=== PATIENT | female | born 1955 | race Caucasian/White ===

== ENCOUNTER 2020-04-25 07:04 | Day surgery (SDC) | payer MEDICARE, MEDICAID, SELFPAY ==
--- NOTE | 2020-04-23 09:01 | P.CONAN_ITS ---
HPI - Anesthesia Eval Consult details Narrative: 65yo F for EGD and [place] [facility] [place] [facility] [place] for urosepsis 2/2 obstructive stone/pyelonephritis, renal stent placed, sepsis resolved, lactic acidosis resolved at time of D/C. [facility] Past Medical History Medical History Anemia Diabetes Hx of hepatitis C Hypertension Hyperthyroidism Parkinson disease Severe sepsis Surgical History Surgical History History of cystoscopy Meds Allergies Allergy/AdvReac Type Severity Reaction Status Date / Time aspirin [ASPIRIN] Allergy Unknown HIVES Unverified 04/10/20 19:49 Penicillins [PCN] Allergy Unknown HIVES Unverified 04/10/20 19:49 Penillins Allergy Unknown Uncoded 03/14/20 00:00 Home Medications Medication Instructions Recorded Confirmed Type acarbose mg PO 04/21/20 History atorvastatin PO 04/21/20 History carbidopa-levodopa tab PO 04/21/20 History furosemide PO 04/21/20 History gabapentin PO 04/21/20 History glipizide mg PO 04/21/20 History glipizide mg PO 04/21/20 History levothyroxine PO 04/21/20 History linagliptin-metformin [Jentadueto] tab PO 04/21/20 History lisinopril PO 04/21/20 History montelukast mg PO 04/21/20 History omeprazole PO 04/21/20 04/21/20 History Exam Exam Date and Time: April 23, 2020 0901
--- NOTE | 2020-04-24 11:54 | P.CONAN_ITS ---
Documented by User: Danette Bowser 04/24/20 12:01 HPI - Anesthesia Eval Consult details Narrative: 65yo F for EGD and Colonoscopy [facility] Past Medical History Medical History Anemia Cirrhosis Diabetes Hx of hepatitis C Hypertension Hyperthyroidism Parkinson disease Severe sepsis Surgical History Surgical History History of cystoscopy Social History Social History Advance Directives: Yes Advance Directives on File: Yes Advance Directives Date on File: 04/25/20 Meds Allergies Allergy/AdvReac Type Severity Reaction Status Date / Time aspirin [ASPIRIN] Allergy Unknown HIVES Verified 04/25/20 08:35 Penicillins [PCN] Allergy Unknown HIVES Verified 04/25/20 08:36 Penillins Allergy Unknown Hives Uncoded 04/25/20 08:35 Home Medications Medication Instructions Recorded Confirmed Type acarbose mg PO 04/21/20 History atorvastatin PO 04/21/20 History carbidopa-levodopa tab PO 04/21/20 History furosemide PO 04/21/20 History gabapentin PO 04/21/20 History glipizide mg PO 04/21/20 History glipizide mg PO 04/21/20 History levothyroxine PO 04/21/20 History linagliptin-metformin [Jentadueto] tab PO 04/21/20 History lisinopril PO 04/21/20 History montelukast mg PO 04/21/20 History omeprazole PO 04/21/20 04/21/20 History Exam Exam Date and Time: April 24, 2020 1154 Pertinent Lab Results Pertinent Lab Results: 04/04/20 Na 144, K 3.4, Cl 112 (H), CO2 24, BUN 8 (L), Creat 0.69 WBC 9.8, HGB 10.8, (L) HCT 31.6 (L), PLT 72 (L) EKG 04/02/20 ST@127 (during admission for urosepsis) ECHO 04/04/20: Nml LV sys func, EF 60-65%, impaired relax, AR (mild) CXR 04/02/20: No acute ds Assessment and Plan Assessment Anesthesia Assessment: Chart Reviewed Documented by User: Tyra Sarah 04/25/20 08:55 PMFSH Past Medical History Medical History Anemia Cirrhosis Diabetes Hx of hepatitis C Hypertension Hyperthyroidism Parkinson disease Severe sepsis Surgical History Surgical History History of cystoscopy Social History Social History Advance Directives: Yes Advance Directives on File: Yes Advance Directives Date on File: 04/25/20 Meds Allergies Allergy/AdvReac Type Severity Reaction Status Date / Time aspirin [ASPIRIN] Allergy Unknown HIVES Verified 04/25/20 08:35 Penicillins [PCN] Allergy Unknown HIVES Verified 04/25/20 08:36 Penillins Allergy Unknown Hives Uncoded 04/25/20 08:35 Home Medications Medication Instructions Recorded Confirmed Type acarbose mg PO 04/21/20 History atorvastatin PO 04/21/20 History carbidopa-levodopa tab PO 04/21/20 History furosemide PO 04/21/20 History gabapentin PO 04/21/20 History glipizide mg PO 04/21/20 History glipizide mg PO 04/21/20 History levothyroxine PO 04/21/20 History linagliptin-metformin [Jentadueto] tab PO 04/21/20 History lisinopril PO 04/21/20 History montelukast mg PO 04/21/20 History omeprazole PO 04/21/20 04/21/20 History
[2020-04-25 08:03] LABS: Glucose, Whole Blood 185 mg/dL (60-115)
[2020-04-25 08:11] VITALS: BMI 39.7
[2020-04-25 08:26] VITALS: PULSE 96; RESP 16; TEMP 36.7; O2SAT 97
[2020-04-25] MEDS: Lactated Ringers 1,000 ML 50 ML IVCONT (08:42)
--- NOTE | 2020-04-25 09:14 | MHC.SHP ---
Surgical H&P Section A The patient is an INPATIENT: No Changes since office visit: No Cold of Flu in the past 2 weeks, No New Medical Problems and No Changes in Medication The History & Physical has been completed within 30 days and I have reviewed it.: No Section B Chief Complaint: CHIRRHOSIS,SCREENING Details of Present Illness: Colon cancer screening Cirrhosis - screen for varices Relevant Family History (Specify if Yes): No Relevant Social History: None Present Medications: see Short Stay Collaborative assessment Medical History: Significant History ( hypertension, diabetes mellitus, hypothyroidism, asthma, Parkinson's disease) History of Previous Operations: Relevant previous surgery/procedure and date(s) ( gallbladder surgery, bilateral tubal ligation.) Allergies: Allergies Allergy/AdvReac Type Severity Reaction Status Date / Time aspirin [ASPIRIN] Allergy Unknown HIVES Verified 04/25/20 08:35 Penicillins [PCN] Allergy Unknown HIVES Verified 04/25/20 08:36 Penillins Allergy Unknown Hives Uncoded 04/25/20 08:35 Review of Systems Sugical H&P ROS: Negative: Constitution, Cardiovascular, Respiratory and Gastrointestinal Exam Surgical H&P Exam: Normal: HEENT, Normal: Heart, Normal: Lungs, Normal: Extremities and Normal: Abdomen Plan Diagnosis/Plan: Unchanged Patient has been examined and remains a candidate for the planned procedure
--- NOTE | 2020-04-25 10:14 | HO.ANESPROP2 ---
[facility] Past Medical History Medical History Anemia Cirrhosis Diabetes Hx of hepatitis C Hypertension Hyperthyroidism Parkinson disease Severe sepsis Surgical History Surgical History History of cystoscopy Social History Social History Advance Directives: Yes Advance Directives on File: Yes Advance Directives Date on File: 04/25/20 Meds Allergies Allergy/AdvReac Type Severity Reaction Status Date / Time aspirin [ASPIRIN] Allergy Unknown HIVES Verified 04/25/20 08:35 Penicillins [PCN] Allergy Unknown HIVES Verified 04/25/20 08:36 Penillins Allergy Unknown Hives Uncoded 04/25/20 08:35 Home Medications Medication Instructions Recorded Confirmed Type acarbose mg PO 04/21/20 History atorvastatin PO 04/21/20 History carbidopa-levodopa tab PO 04/21/20 History furosemide PO 04/21/20 History gabapentin PO 04/21/20 History glipizide mg PO 04/21/20 History glipizide mg PO 04/21/20 History levothyroxine PO 04/21/20 History linagliptin-metformin [Jentadueto] tab PO 04/21/20 History lisinopril PO 04/21/20 History montelukast mg PO 04/21/20 History omeprazole PO 04/21/20 04/21/20 History Exam Exam Date and Time: April 25, 2020 1014 Height,Weight and Vital Signs: Height 4 ft 11 in Weight 89.358 kg Last Vital Signs Temp 98.1 F 04/25/20 08:26 Pulse 96 04/25/20 08:26 Resp 16 04/25/20 08:26 Pulse Ox 97 04/25/20 08:26 Pertinent Lab Results Pertinent Lab Results: Laboratory Tests 04/25/20 07:59 POC Glucose 185 H Assessment and Plan Assessment Anesthesia Assessment: Anesthesia Plan Discussed and Consent Obtained Final Anesthetic Review NPO: Yes Final Preanesthetic Review: No Changes in Pt Med Stat, Meds & Allergies Reviewed, Consent Obtained/Reviewed and Med/Surg/Anes Hx Reviewed Patient Risk: Intermediate Procedure Risk: Low Assessment/Block/Sedation in SS: Assess/Block/Sedation-SS Anesthetic Plan Anesthetic Plan: MAC: Disposition: Standard PACU
--- NOTE | 2020-04-25 10:18 | HO.ANESPROP2 ---
[facility] Past Medical History Medical History Anemia Cirrhosis Diabetes Hx of hepatitis C Hypertension Hyperthyroidism Parkinson disease Severe sepsis Surgical History Surgical History History of cystoscopy Social History Social History Advance Directives: Yes Advance Directives on File: Yes Advance Directives Date on File: 04/25/20 Meds Allergies Allergy/AdvReac Type Severity Reaction Status Date / Time aspirin [ASPIRIN] Allergy Unknown HIVES Verified 04/25/20 08:35 Penicillins [PCN] Allergy Unknown HIVES Verified 04/25/20 08:36 Penillins Allergy Unknown Hives Uncoded 04/25/20 08:35 Home Medications Medication Instructions Recorded Confirmed Type acarbose mg PO 04/21/20 History atorvastatin PO 04/21/20 History carbidopa-levodopa tab PO 04/21/20 History furosemide PO 04/21/20 History gabapentin PO 04/21/20 History glipizide mg PO 04/21/20 History glipizide mg PO 04/21/20 History levothyroxine PO 04/21/20 History linagliptin-metformin [Jentadueto] tab PO 04/21/20 History lisinopril PO 04/21/20 History montelukast mg PO 04/21/20 History omeprazole PO 04/21/20 04/21/20 History Exam Exam Date and Time: April 25, 2020 1018 Height,Weight and Vital Signs: Height 4 ft 11 in Weight 89.358 kg Last Vital Signs Temp 98.1 F 04/25/20 08:26 Pulse 96 04/25/20 08:26 Resp 16 04/25/20 08:26 Pulse Ox 97 04/25/20 08:26 Pertinent Lab Results Pertinent Lab Results: Laboratory Tests 04/25/20 07:59 POC Glucose 185 H Assessment and Plan Assessment Anesthesia Assessment: Anesthesia Plan Discussed and Consent Obtained Final Anesthetic Review NPO: Yes ASA Class: II Final Preanesthetic Review: No Changes in Pt Med Stat, Meds & Allergies Reviewed, Consent Obtained/Reviewed and Med/Surg/Anes Hx Reviewed Patient Risk: Intermediate Procedure Risk: Low Anesthetic Plan Anesthetic Plan: MAC: Disposition: Standard PACU
--- NOTE | 2020-04-25 10:39 | P.BOP_ITS ---
Brief Operative Note Date of procedure: 04/25/20 Pre-op diagnosis: colon cancer screening, cirrhosis - screen for varices Post-op diagnosis: other (hiatal hernia, portal hypertensive gastropathy, colon polyps, diverticulosis, hemorrhoids) Procedure: FLEXIBLE TRANSORAL UPPER GASTROINTESTINAL ENDOSCOPY AND COLONOSCOPY PROCEDURE NOTE UPPER ENDOSCOPY Consent: Indications for the procedure and potential complications of bleeding, perforation, reaction to medications and missed diagnosis were discussed with the patient with the help of a dicer machine operator and informed consent was obtained. Instrument: Olympus GIF H 190 mid size upper endoscope Monitoring: Vital signs and clinical assessment, continuous EKG monitoring, Pulse oximetry, Carbon Dioxide monitoring and blood pressure monitoring were done throughout the procedure. Procedure: The patient was placed in the left lateral decubitis position and pre-procedure medications were administered and a bite block was placed. The endoscope was inserted into the mouth and advanced under direct vision to the third part of duodenum. A careful inspection was made as the upper endoscope was withdrawn including a retroflexed examination of the proximal stomach; Findings and interventions are described below. Findings: Larynx: Normal Esophagus: GE junction at 37 cms, small hiatal hernia 37-40 cms. No esophageal varices noted in the distal esophagus. No esophagitis or Estrada s. Stomach: Moderate non-erosive portal gastropathy throughout the stomach. Grade 2 flap valve and no gastric varices noted on retroflexed examination of the cardia. Duodenum: Normal bulb and descending duodenum Intervention: None Colonoscopy Instrument: Olympus PCF H 190 L variable stiffness pediatric colonoscope Monitoring: Vital signs and clinical assessment, continuous EKG monitoring, Pulse oximetry, Carbon Dioxide monitoring and blood pressure monitoring were done throughout the procedure. Colon withdrawl time was 30 minutes. Procedure: The patient was placed in the left lateral decubitis position and pre-procedure medications were administered. After a digital rectal examination of the ano-rectum, the video colonoscope was inserted into the rectum and advanced through the colon to the cecum. The colonoscope was slowly withdrawn in a retrograde panoramic fashion and the colon mucosa was carefully examined including a retroflexed view of the rectum. Findings and interventions are described below. Procedure Difficulty: Without difficulty Findings: Terminal Ileum Not evaluated Cecum: Normal. Ascending Colon: A 4-5 mm sessile polyp removed with the cold biopsy. Transverse Colon: A 10 mm sessile polyp in the proximal transverse colon removed with a hot snare. A 20 mm sessile polyp in the proximal transverse colon removed with a hot snare. Descending Colon: Normal Sigmoid Colon: Multiple 4-5 mm diminutive polyps - one removed with a cold biopsy. A 10-12 mm sessile polyp removed with a hot snare and moderate diverticulosis. Rectum Normal Anorectum - Moderate internal hemorrhoids. Colon preparation: Good after some irrigation. Impression and Post Procedure Diagnosis: Endoscopy Findings: ESOPHAGUS: small hiatal hernia and no esophageal varices noted. STOMACH: moderate non-erosive hypertensive portal gastropathy. Colonoscopy Findings: 5 polyps were removed - 3 polyps were larger than 10 mm. Moderate diverticulosis seen in the sigmoid colon Moderate hemorrhoids on retroflexed exam. Plan: Await pathology results Hold NSAIDs or aspirin for 7 days. Patient to schedule a FU appointment in the GI Clinic with Sourav Braun M.D. Repeat EGD (screen for varices) and Colonoscopy in 2 years if polyps are adenomatous. Above findings were reviewed with the patient and handout on colon polyps and diverticulosis was provided. Anesthesia: MAC ( Dr Gallardo) Surgeon: Sourav Braun Pathology: other (A. ascending colon polyp, B. transverse colon polyps. C. sigmoid colon polyps) Condition: stable Disposition: PACU
[2020-04-25 10:43] VITALS: BP 95/44; PULSE 85; RESP 16; TEMP 36.1; O2SAT 99
--- NOTE | 2020-04-25 10:44 | HO.ANESPROP2 ---
[facility] Past Medical History Medical History (Updated 04/25/20 @ 10:45 by Tyra Sarah) Anemia Cirrhosis Diabetes Hx of hepatitis C Hypertension Hyperthyroidism Parkinson disease Severe sepsis Surgical History Surgical History History of cystoscopy Social History Social History Advance Directives: Yes Advance Directives on File: Yes Advance Directives Date on File: 04/25/20 Meds Allergies Allergy/AdvReac Type Severity Reaction Status Date / Time aspirin [ASPIRIN] Allergy Unknown HIVES Verified 04/25/20 08:35 Penicillins [PCN] Allergy Unknown HIVES Verified 04/25/20 08:36 Penillins Allergy Unknown Hives Uncoded 04/25/20 08:35 Home Medications Medication Instructions Recorded Confirmed Type acarbose mg PO 04/21/20 History atorvastatin PO 04/21/20 History carbidopa-levodopa tab PO 04/21/20 History furosemide PO 04/21/20 History gabapentin PO 04/21/20 History glipizide mg PO 04/21/20 History glipizide mg PO 04/21/20 History levothyroxine PO 04/21/20 History linagliptin-metformin [Jentadueto] tab PO 04/21/20 History lisinopril PO 04/21/20 History montelukast mg PO 04/21/20 History omeprazole PO 04/21/20 04/21/20 History Exam Exam Date and Time: April 25, 2020 1044 Height,Weight and Vital Signs: Height 4 ft 11 in Weight 89.358 kg Last Vital Signs Temp 98.1 F 04/25/20 08:26 Pulse 96 04/25/20 08:26 Resp 16 04/25/20 08:26 Pulse Ox 97 04/25/20 08:26 Pertinent Lab Results Pertinent Lab Results: Laboratory Tests 04/25/20 07:59 POC Glucose 185 H
[2020-04-25 10:58] VITALS: BP 100/64; PULSE 86; RESP 20; TEMP 36.1; O2SAT 99
--- NOTE | 2020-04-25 11:20 | HO.POSTANES ---
Post Anesthesia Evaluation Post Anesthesia Evaluation Vital Signs: Vital Signs Temp Pulse Resp BP Pulse Ox 04/25/20 10:58 97.0 F 86 20 100/64 99 04/25/20 10:43 97.0 F 85 16 95/44 L 99 04/25/20 08:26 98.1 F 96 16 97 Anesthesia: Monitored Mental Status: Awake Pain Control: Satisfactory Nausea/Vomiting: None Hydration: Adequate Anesthesia-Related Issues: No Anes. Related Issues
--- NOTE | 2020-04-25 12:00 | HO.ANESPROP2 ---
[facility] Past Medical History Medical History Anemia Cirrhosis Diabetes Hx of hepatitis C Hypertension Hyperthyroidism Parkinson disease Severe sepsis Surgical History Surgical History History of cystoscopy Social History Social History Advance Directives: Yes Advance Directives on File: Yes Advance Directives Date on File: 04/25/20 Meds Allergies Allergy/AdvReac Type Severity Reaction Status Date / Time aspirin [ASPIRIN] Allergy Unknown HIVES Verified 04/25/20 08:35 Penicillins [PCN] Allergy Unknown HIVES Verified 04/25/20 08:36 Penillins Allergy Unknown Hives Uncoded 04/25/20 08:35 Home Medications Medication Instructions Recorded Confirmed Type Jentadueto tab PO 04/21/20 History acarbose mg PO 04/21/20 History atorvastatin PO 04/21/20 History carbidopa-levodopa tab PO 04/21/20 History furosemide PO 04/21/20 History gabapentin PO 04/21/20 History glipizide mg PO 04/21/20 History glipizide mg PO 04/21/20 History levothyroxine PO 04/21/20 History lisinopril PO 04/21/20 History montelukast mg PO 04/21/20 History omeprazole PO 04/21/20 04/21/20 History Exam Exam Date and Time: April 25, 2020 1200 Height,Weight and Vital Signs: Height 4 ft 11 in Weight 89.358 kg Last Vital Signs Temp 97.0 F 04/25/20 10:58 Pulse 86 04/25/20 10:58 Resp 20 04/25/20 10:58 BP 100/64 04/25/20 10:58 Pulse Ox 99 04/25/20 10:58 Pertinent Lab Results Pertinent Lab Results: Laboratory Tests 04/25/20 07:59 POC Glucose 185 H
== END 2020-04-25 11:58 | disposition home or self-care (01) ==
PROVIDERS: Visit Provider Internal Medicine Gastroenterology
PROC: (CPT 45380; principal; 2020-04-25 08:30)
DX: Z12.11 Encounter for screening for malignant neoplasm of colon (principal); D12.5 Benign neoplasm of sigmoid colon; K57.30 Diverticulosis of large intestine without perforation or abscess without bleeding; K64.8 Other hemorrhoids; K74.60 Unspecified cirrhosis of liver; K76.6 Portal hypertension; K31.89 Other diseases of stomach and duodenum; K44.9 Diaphragmatic hernia without obstruction or gangrene; I10 Essential (primary) hypertension; E11.9 Type 2 diabetes mellitus without complications; J45.909 Unspecified asthma, uncomplicated; G20 Parkinson's disease; Z90.49 Acquired absence of other specified parts of digestive tract; Z79.84 Long term (current) use of oral hypoglycemic drugs; Z79.899 Other long term (current) drug therapy; Z88.1 Allergy status to other antibiotic agents; Z88.8 Allergy status to other drugs, medicaments and biological substances
CPT/HCPCS: 45380; 43235; 82947; 88305

== ENCOUNTER 2020-05-14 07:18 | Day surgery (SDC) | payer MEDICARE, MEDICAID, SELFPAY ==
--- NOTE | 2020-05-13 14:25 | HO.ANESPROP2 ---
Documented by User: Danette Bowser 05/13/20 14:30 HPI - Anesthesia Eval Consult details Narrative: 65yo F for ESWL PMFSH Past Medical History Medical History (Updated 05/13/20 @ 15:52 by Ruperto Parkinson MD) Anemia Cirrhosis Diabetes Hx of hepatitis C Hypertension Hyperthyroidism Parkinson disease Severe sepsis Surgical History Surgical History History of cystoscopy Social History Social History Smoking Status: Never smoker Use of substances other than those prescribed or required for medical reasons: No Advance Directives: Yes Advance Directives on File: Yes Advance Directives Date on File: 04/25/20 Meds Allergies Allergy/AdvReac Type Severity Reaction Status Date / Time aspirin [ASPIRIN] Allergy Unknown HIVES Verified 04/25/20 08:35 Penicillins [PCN] Allergy Unknown HIVES Verified 04/25/20 08:36 Penillins Allergy Unknown Hives Uncoded 04/25/20 08:35 Home Medications Medication Instructions Recorded Confirmed Type Jentadueto tab PO 04/21/20 History acarbose mg PO 04/21/20 History atorvastatin PO 04/21/20 History carbidopa-levodopa tab PO 04/21/20 History furosemide PO 04/21/20 History gabapentin PO 04/21/20 History glipizide mg PO 04/21/20 History glipizide mg PO 04/21/20 History levothyroxine PO 04/21/20 History lisinopril PO 04/21/20 History montelukast mg PO 04/21/20 History omeprazole PO 04/21/20 04/21/20 History Exam Exam Date and Time: May 13, 2020 1425 Pertinent Lab Results Pertinent Lab Results: Laboratory Tests 04/04/20 04/04/20 06:25 06:25 WBC 9.8 Hgb 10.8 L Hct 31.6 L Plt Count 72 L Sodium 144 Potassium 3.4 Chloride 112 H BUN 8 L Creatinine 0.69 Narrative Narrative: EKG 04/02/20 ST@127 (during admission for urosepsis) ECHO 04/04/20: Nml LV sys func, EF 60-65%, impaired relax, AR (mild) CXR 04/02/20: No acute ds Assessment and Plan Assessment Anesthesia Assessment: Chart Reviewed Documented by User: Nathan Church 05/14/20 10:19 PMFSH Past Medical History Medical History (Updated 05/13/20 @ 15:52 by Ruperto Parkinson MD) Anemia Cirrhosis Diabetes Hx of hepatitis C Hypertension Hyperthyroidism Parkinson disease Severe sepsis Surgical History Surgical History History of cystoscopy Social History Social History Smoking Status: Never smoker Use of substances other than those prescribed or required for medical reasons: No Advance Directives: Yes Advance Directives on File: Yes Advance Directives Date on File: 04/25/20 Meds Allergies Allergy/AdvReac Type Severity Reaction Status Date / Time aspirin [ASPIRIN] Allergy Unknown HIVES Verified 04/25/20 08:35 Penicillins [PCN] Allergy Unknown HIVES Verified 04/25/20 08:36 Penillins Allergy Unknown Hives Uncoded 04/25/20 08:35 Home Medications Medication Instructions Recorded Confirmed Type Jentadueto tab PO 04/21/20 History acarbose mg PO 04/21/20 History atorvastatin PO 04/21/20 History carbidopa-levodopa tab PO 04/21/20 History furosemide PO 04/21/20 History gabapentin PO 04/21/20 History glipizide mg PO 04/21/20 History glipizide mg PO 04/21/20 History levothyroxine PO 04/21/20 History lisinopril PO 04/21/20 History montelukast mg PO 04/21/20 History omeprazole PO 04/21/20 04/21/20 History Exam Airway Mallampati Class: II TM Dist: >3cm Neck ROM: Full Loose/Missing/Broken Teeth: Yes Heart: RRR Assessment and Plan Assessment Anesthesia Assessment: Anesthesia Plan Discussed Final Anesthetic Review NPO: Yes ASA Class: III Final Preanesthetic Review: Consent Obtained/Reviewed Anesthetic Plan Anesthetic Plan: MAC:
--- NOTE | 2020-05-14 07:26 | XR_ITS ---
EXAMINATION: XR ABDOMEN KUB CLINICAL INDICATION: EFW well COMPARISON: CT scan of April 03, 2020 TECHNIQUE: AP view of the abdomen. FINDINGS: A right ureteral stent is seen in place. There is again noted to be calcification within the mid right ureter measuring approximately 3 x 1.3 cm in size. There is also seen to be a 3 mm calculus overlying the medial aspect of the right upper collecting system. No definite calculi are seen within the distal right ureter. No dilated loops of large or small bowel are evident. There is mild scoliosis of the lumbar spine convex right. There is degenerative disc disease with facet arthropathy L5-S1. IMPRESSION: Right ureteral stent in place with large mid right ureteral calculus.
[2020-05-14 08:47] VITALS: BMI 39.7
[2020-05-14 09:05] VITALS: BP 114/40; PULSE 92; RESP 18; TEMP 36.4; O2SAT 99
[2020-05-14 09:17] LABS: Glucose, Whole Blood 113 mg/dL (60-115)
[2020-05-14] MEDS: Lactated Ringers 1,000 ML 50 ML IVCONT (09:23)
[2020-05-14] MEDS: levoFLOXacin 500 MG TABLET PO (09:55)
--- NOTE | 2020-05-14 10:46 | MHC.SHP ---
Pre-Procedural Eval Section B Chief Complaint: RIGHT RENAL STONE Details of Present Illness: Right upper ureteric stone with stent in place Relevant Family History (Specify if Yes): No Relevant Social History: None Present Medications: see Short Stay Collaborative assessment Medical History: No relevant PMH History of Previous Operations: Relevant previous surgery/procedure and date(s) Allergies: Allergies Allergy/AdvReac Type Severity Reaction Status Date / Time aspirin [ASPIRIN] Allergy Unknown HIVES Verified 04/25/20 08:35 Penicillins [PCN] Allergy Unknown HIVES Verified 04/25/20 08:36 Penillins Allergy Unknown Hives Uncoded 04/25/20 08:35 Review of Systems Sugical H&P ROS: Negative: Constitution, Cardiovascular, Respiratory, Neurological, Psychiatric, Hem-Onc, Allergic/Immunologic, Gastrointestinal, Genitourinary, Musculoskeletal, Integumentary, Endocrine and Eyes/Ears/Nose/Throat Exam Surgical H&P Exam: Normal: HEENT, Normal: Heart, Normal: Lungs, Normal: Extremities, Normal: Abdomen, Normal: Skin and Normal: Neurological Plan Diagnosis/Plan: Unchanged Patient has been examined and remains a candidate for the planned procedure
--- NOTE | 2020-05-14 11:41 | PM.OP ---
Brief Operative Note Date of procedure: 05/14/20 Pre-op diagnosis: right ureteric stone with stent Post-op diagnosis: same Procedure: right ureteric ESWL stent left in place since residual on end procedure imaging Surgeon: Ruperto Parkinson MD Anesthesia: MAC Estimated blood loss (mL): 0 Pathology: none sent Condition: stable Disposition: same day
--- NOTE | 2020-05-14 11:42 | W.PM.OPN ---
Operative Note Operative Note Narrative: PreOperative Diagnosis: right ureter stone Post Operative Diagnosis: right ureter stone Procedure: right ureter ESWL Surgeron: Dr Ruperto Parkinson Anesthesia: mac/sedation Indications for procedure: They understand ESWL may be a staged procedure and subsequent intervention may be required based on imaging after ESWL. They also understand there is a risk of bleeding, infection, damage to adjacent organs. Procedure: After informed consent was verified patient was brought to the operating room placed in supine position. Anesthesia was performed per protocol. Safety pause time-out was performed. Antibiotics have been given. ESWL was performed. The 1st 500 shocks to increase power.. A total of 3000 shocks were given. Fluoroscopy showed mild stone disintegration. Not enough to take out stent They tolerated procedure well and was transferred to the recovery area upon completion.
[2020-05-14 11:43] VITALS: BP 114/59; PULSE 103; RESP 18; TEMP 36.8; O2SAT 100
[2020-05-14 11:57] VITALS: BP 122/75; PULSE 91; RESP 16; O2SAT 100
[2020-05-14 12:11] VITALS: BP 122/59; PULSE 89; RESP 17; TEMP 36.6; O2SAT 100
--- NOTE | 2020-05-14 12:46 | HO.POSTANES ---
Post Anesthesia Evaluation Post Anesthesia Evaluation Vital Signs: Vital Signs Temp Pulse Resp BP Pulse Ox 05/14/20 12:11 97.8 F 89 17 122/59 L 100 05/14/20 11:57 91 16 122/75 100 05/14/20 11:43 98.2 F 103 H 18 114/59 L 100 05/14/20 09:05 97.6 F 92 18 114/40 L 99 Anesthesia: Monitored Mental Status: Awake Pain Control: Satisfactory Nausea/Vomiting: None Hydration: Adequate Anesthesia-Related Issues: No Anes. Related Issues
== END 2020-05-14 13:00 | disposition home or self-care (01) ==
PROVIDERS: Visit Provider Urology
PROC: (CPT 50590; principal; 2020-05-14 09:50)
DX: N20.1 Calculus of ureter (principal); Z96.0 Presence of urogenital implants; E11.9 Type 2 diabetes mellitus without complications; I10 Essential (primary) hypertension; G20 Parkinson's disease; Z86.19 Personal history of other infectious and parasitic diseases; Z79.84 Long term (current) use of oral hypoglycemic drugs; Z79.899 Other long term (current) drug therapy; Z88.0 Allergy status to penicillin; Z88.8 Allergy status to other drugs, medicaments and biological substances
CPT/HCPCS: 50590; 74018; 82947; J2250; J3010

== ENCOUNTER → 2020-07-01 14:48 | Outpatient (BNVA) | payer MEDICARE, MEDICAID, SELFPAY | PROVIDERS: PCP Internal Medicine; Visit Provider Urology | DX: N20.1 Calculus of ureter (principal) | CPT/HCPCS: 99212 ==

== ENCOUNTER 2020-07-14 07:21 | Day surgery (SDC) | payer MEDICARE, MEDICAID, SELFPAY ==
[2020-07-08 10:26] VITALS: BMI 39.2
--- NOTE | 2020-07-11 12:11 | HO.ANESPROP2 ---
Documented by User: Danette Bowser 07/11/20 12:18 HPI - Anesthesia Eval Consult details Narrative: 65yo F for Cystoscopy, Ureteroroscopy, Retro, Laser, Stent Replacement 03/2020 R stent placement with MAC 04/2020 ESWL with MAC PMFSH Past Medical History Medical History Anemia Cirrhosis Diabetes Hx of hepatitis C Hypertension Hyperthyroidism Parkinson disease Severe sepsis Surgical History Surgical History H/O colonoscopy History of cystoscopy Hx of lithotripsy Social History Social History Smoking Status: Never smoker Second Hand Smoke Exposure: No Use of substances other than those prescribed or required for medical reasons: No Advance Directives: Yes Advance Directives Information Provided: No Advance Directives on File: Yes Advance Directives Date on File: 04/25/20 Meds Allergies Allergy/AdvReac Type Severity Reaction Status Date / Time aspirin [ASPIRIN] Allergy Intermediate HIVES Verified 07/07/20 13:55 Penicillins [PCN] Allergy Intermediate HIVES Verified 07/07/20 13:55 Home Medications Medication Instructions Recorded Confirmed Type Jentadueto tab PO 04/21/20 History acarbose 25 mg PO TIDWMEAL 04/21/20 07/08/20 History atorvastatin 20 mg PO BEDTIME 04/21/20 07/08/20 History carbidopa-levodopa 1 tab PO TID 04/21/20 07/08/20 History furosemide 20 mg PO DAILY 04/21/20 07/08/20 History gabapentin 300 mg PO TID 04/21/20 07/08/20 History glipizide 10 mg PO BIDAC 04/21/20 07/08/20 History levothyroxine 75 mcg PO DAILY 04/21/20 07/08/20 History lisinopril 2.5 mg PO DAILY 04/21/20 07/08/20 History montelukast 10 mg PO BEDTIME 04/21/20 07/08/20 History omeprazole 20 mg PO DAILY 04/21/20 07/08/20 History Exam Exam Date and Time: July 11, 2020 1211 Height,Weight and Vital Signs: Height 4 ft 11 in Weight 87.997 kg Pertinent Lab Results Pertinent Lab Results: Laboratory Tests 04/04/20 04/04/20 06:25 06:25 WBC 9.8 Hgb 10.8 L Hct 31.6 L Plt Count 72 L Sodium 144 Potassium 3.4 Chloride 112 H BUN 8 L Creatinine 0.69 Narrative Narrative: EKG 03/2020 (septic) ST@127, Nonspecific ST abn ECHO 03/2020: Nml LV sys function with impaired filling pattern, EF 60-65%, Mild AR, Nml RV sys pressure, No pericardial effusion Assessment and Plan Assessment Anesthesia Assessment: Chart Reviewed Documented by User: Waqas Ortega 07/14/20 08:40 PMFSH Past Medical History Medical History Anemia Cirrhosis Diabetes Hx of hepatitis C Hypertension Hyperthyroidism Parkinson disease Severe sepsis Surgical History Surgical History H/O colonoscopy History of cystoscopy Hx of lithotripsy Social History Social History Smoking Status: Never smoker Second Hand Smoke Exposure: No Use of substances other than those prescribed or required for medical reasons: No Advance Directives: Yes Advance Directives Information Provided: No Advance Directives on File: Yes Advance Directives Date on File: 04/25/20 Meds Allergies Allergy/AdvReac Type Severity Reaction Status Date / Time aspirin [ASPIRIN] Allergy Intermediate HIVES Verified 07/07/20 13:55 Penicillins [PCN] Allergy Intermediate HIVES Verified 07/07/20 13:55 Home Medications Medication Instructions Recorded Confirmed Type Jentadueto tab PO 04/21/20 History acarbose 25 mg PO TIDWMEAL 04/21/20 07/08/20 History atorvastatin 20 mg PO BEDTIME 04/21/20 07/08/20 History carbidopa-levodopa 1 tab PO TID 04/21/20 07/08/20 History furosemide 20 mg PO DAILY 04/21/20 07/08/20 History gabapentin 300 mg PO TID 04/21/20 07/08/20 History glipizide 10 mg PO BIDAC 04/21/20 07/08/20 History levothyroxine 75 mcg PO DAILY 04/21/20 07/08/20 History lisinopril 2.5 mg PO DAILY 04/21/20 07/08/20 History montelukast 10 mg PO BEDTIME 04/21/20 07/08/20 History omeprazole 20 mg PO DAILY 04/21/20 07/08/20 History Exam Airway Mallampati Class: III TM Dist: >3cm Neck ROM: Full Denture: Lower
[2020-07-14 07:39] VITALS: BP 126/63; PULSE 95; RESP 16; TEMP 36.4; O2SAT 100
[2020-07-14 07:41] VITALS: BMI 39.2
[2020-07-14 07:46] LABS: Glucose, Whole Blood 132 mg/dL (60-115)
[2020-07-14] MEDS: Lactated Ringers 1,000 ML 100 ML IVCONT (07:56)
--- NOTE | 2020-07-14 10:14 | FL_ITS ---
EXAMINATION: XR FLUOROSCOPY WITH IMAGES CLINICAL INFORMATION: Right-sided stone. COMPARISON: Previous CT of the abdomen and pelvis March 2020 TECHNIQUE: Fluoroscopy performed by Dr. Ruperto Parkinson. Fluoroscopy time: 32 seconds Cumulative dose: 16 mGy Images: 3 FINDINGS: Initial image demonstrates a ureteroscope in the right distal ureter. Second image demonstrates contrast in a dilated right renal collecting system and ureter. There is denser lesion in the right mid to distal ureter questionable for stone seen on March 2020 CT scan. Final image demonstrates ureteroscope catheter in the more proximal right ureter. There is severe right hydronephrosis and ureteral dilatation. FL/FL guidance in OR IMPRESSION: Fluoroscopic guidance provided to Dr. Parkinson for right retrograde exam.
--- NOTE | 2020-07-14 10:20 | MHC.SHP ---
Pre-Procedural Eval Section A The patient is an INPATIENT: No Changes since office visit: No Cold of Flu in the past 2 weeks, No New Medical Problems, No Changes in Medication and No Patient answered all questions The History & Physical has been completed within 30 days and I have reviewed it.: Yes Section B Chief Complaint: Calculus of Ureter Allergies: Allergies Allergy/AdvReac Type Severity Reaction Status Date / Time aspirin [ASPIRIN] Allergy Intermediate HIVES Verified 07/07/20 13:55 Penicillins [PCN] Allergy Intermediate HIVES Verified 07/07/20 13:55 Plan I have reviewed the history and physical and performed a pertinent physical examination on my patient. No changes have occurred unless specified.
--- NOTE | 2020-07-14 10:23 | P.HPSUR_ITS ---
Pre-Procedural Eval Section B Chief Complaint: Calculus of Ureter Details of Present Illness: Right distal ureteric calculus with stent - planned procedure right stent removal, retrograde, ureteroscopy, laser lithotripsy Relevant Family History (Specify if Yes): No Relevant Social History: None Present Medications: see Short Stay Collaborative assessment Medical History: Significant History History of Previous Operations: Relevant previous surgery/procedure and date(s) Allergies: Allergies Allergy/AdvReac Type Severity Reaction Status Date / Time aspirin [ASPIRIN] Allergy Intermediate HIVES Verified 07/07/20 13:55 Penicillins [PCN] Allergy Intermediate HIVES Verified 07/07/20 13:55 Review of Systems Sugical H&P ROS: Negative: Constitution, Cardiovascular, Respiratory, Neurological, Psychiatric, Hem-Onc, Allergic/Immunologic, Gastrointestinal, Ge nitourinary, Musculoskeletal, Integumentary, Endocrine and Eyes/Ears/Nose/Throat Exam Surgical H&P Exam: Normal: HEENT, Normal: Heart, Normal: Lungs, Normal: Extremities, Normal: Abdomen, Normal: Skin and Normal: Neurological Plan Diagnosis/Plan: Unchanged I have reviewed the history and physical and performed a pertinent physical examination on my patient. No changes have occurred unless specified. - right stent removal, ureteroscopy, retrograde, laser lithotripsy
[2020-07-14] MEDS: levoFLOXacin 500 MG TABLET PO (10:27)
--- NOTE | 2020-07-14 11:07 | PM.OP ---
Brief Operative Note Date of Service: 07/14/20 Pre-op diagnosis: Right ureteric stone Post-op diagnosis: same Procedure: Cystoscopy with ureteroscopy and removal of right stent Ureteroscopy with basketing of stone fragments Retrograde examination Implants: None Surgeon: Ruperto Parkinson MD Anesthesia: GLMA Estimated blood loss (mL): 0 Pathology: other (Stone and inflammatory tissue) Condition: stable Disposition: same day
--- NOTE | 2020-07-14 11:12 | W.PM.OPN ---
Operative Note Operative Note Date of Service: 07/14/20 Narrative: PreOperative Diagnosis: Right-sided stone ureter with stent Post Operative Diagnosis: Right-sided stent with mid ureter stone Procedure: - cystoscopy - ureteroscopy with stent removal - ureteroscopy with basketing of stone, basketing of inflammatory tissue Surgeon: Dr Ruperto Parkinson Anesthesia: General Indications for procedure: This is a 65-year-old female. Presented with a mid ureteric stone. At that time stent been placed. As well had been done. On follow-up imaging showed stone still present around stent recommendation had been for removal of stent under anesthesia with ureteroscopy for stone fragments. Procedure: After informed consent was verified patient was brought to the operating placed in supine position. Anesthesia was administered per protocol. Patient was placed in modified dorsal lithotomy position and prepped and draped in a sterile fashion. Safety pause time-out and side of surgery confirmed. Antibiotics confirmed. Twenty-two [place] cystoscope was placed. She has a prolapse of her bladder incomplete bladder emptying. Urine was clearly concentrated time removal. The bladder was examined. No stent was seen. On x-ray it appeared the stent had migrated proximally and the distal tip was just inside the ureter. Semi rigid ureteroscopy was performed. The stent was encountered within 1 in of the ureteric opening. Using a Zero tip basket we were able to manipulate the end of the stent and grasped this and removed the stent. Repeat ureteroscopy encountered 2 stone fragments each of these were basketed and removed. Repeat retrograde was performed which did show some degree of narrowing of the ureter at between the proximal and middle 3rd. Ureteroscopy this area showed some inflammatory type tissue which could have been stone debris. This was grasped and removed and will be sent for pathology. Repeat retrograde showed the area was open. Decision was made not to leave a stent She tolerated procedure well was extubated in the operating room transferred in stable condition to the recovery area Pathology: Stone fragments, tissue fragment Drains: None Follow-up in 4 weeks with imaging
[2020-07-14 11:15] VITALS: BP 139/78; PULSE 92; RESP 17; TEMP 36.5; O2SAT 98
[2020-07-14 11:20] VITALS: BP 142/74; PULSE 87; RESP 16; O2SAT 96
[2020-07-14 11:25] VITALS: BP 154/78; PULSE 85; RESP 16; O2SAT 96
[2020-07-14 11:30] VITALS: BP 155/76; PULSE 90; RESP 16; O2SAT 96
[2020-07-14 11:45] VITALS: BP 142/56; PULSE 90; RESP 16; O2SAT 97
--- NOTE | 2020-07-14 12:21 | HO.POSTANES ---
Post Anesthesia Evaluation Post Anesthesia Evaluation Vital Signs: Vital Signs Temp Pulse Resp BP Pulse Ox 07/14/20 11:45 97.7 F 90 16 142/56 H 97 07/14/20 11:30 90 16 155/76 H 96 07/14/20 11:25 85 16 154/78 H 96 07/14/20 11:20 87 16 142/74 H 96 07/14/20 11:15 97.7 F 92 17 139/78 98 07/14/20 07:39 97.6 F 95 16 126/63 100 Anesthesia: General LMA Mental Status: Awake Pain Control: Satisfactory Nausea/Vomiting: None Hydration: Adequate Anesthesia-Related Issues: No Anes. Related Issues
[2020-07-22 21:32] LABS: Stone Source KIDNEY
== END 2020-07-14 12:23 | disposition home or self-care (01) ==
PROVIDERS: Visit Provider Urology
PROC: (CPT 52352; principal; 2020-07-14 09:30)
DX: N20.1 Calculus of ureter (principal); E11.9 Type 2 diabetes mellitus without complications; Z79.84 Long term (current) use of oral hypoglycemic drugs; Z96.0 Presence of urogenital implants; Z88.0 Allergy status to penicillin; Z88.6 Allergy status to analgesic agent
CPT/HCPCS: 52352; 82365; 82947; 88300; 88305; C1758; C1769; J2250; J2405; J3010; Q9967

== ENCOUNTER 2021-02-11 10:53 | Outpatient (REF) | payer MEDICARE, MEDICAID, SELFPAY ==
--- NOTE | ~2021-02-11 | MM_ITS ---
EXAMINATION: BONE DENSITOMETRY CLINICAL INDICATION: Osteoporosis. COMPARISON: None (current study represents initial baseline exam). TECHNIQUE: Using a [employer] DXA System (software version: 13.1) manufactured by [employer], dual-energy x-ray absorptiometry was performed of the lumbar spine and left hip. The images are of good technical quality. Summary results are attached. FINDINGS: AP SPINE L1-L4: BMD 0.787 g/cm2, Z-score -2.5, T-score -3.3, osteoporosis. LEFT FEMUR, NECK: BMD 0.860 g/cm2, Z-score -0.3, T-score -1.3, osteopenia. LEFT FEMUR, TOTAL: BMD 0.920 g/cm2, Z-score 0.0, T-score -0.7, normal. IDENTIFIED RISK FACTORS: Early menopause, secondary osteoporosis, anticonvulsant, glucocorticoids (chronic), hysterectomy. HISTORY OF FRACTURE: None listed. MEDICATIONS: None listed. MM/XR DEXA axial skeleton IMPRESSION: 1. DIAGNOSIS: Osteoporosis based on the lowest T-score value of -3.3 in the lumbar spine applying World Health Organization criteria. 2. 10-YEAR FRACTURE RISK PREDICTION, FRAX: Major osteoporotic fracture (clinical spine, forearm, hip or shoulder) 7.0%. Hip fracture 0.7%. 3. Treatment Recommendations: NOF guidelines recommend consideration for treatment in postmenopausal women and men age 50 and older presenting with the following: -A hip or vertebral (clinical or morphometric) fracture. -T-score less than or equal to -2.5 at the femoral neck or spine after appropriate evaluation to exclude secondary causes. -Low bone mass at the hip or spine and a 10-year fracture probability by FRAX of greater than or equal to 3% for hip fracture or greater than or equal to 20% for major osteoporotic fracture based on the [place] adapted WHO algorithm. 4. Other Recommendations: All treatment decisions require clinical judgment and consideration of individual patient factors, including patient preferences, comorbidities, previous drug use, risk factors not captured in the FRAX model (e.g. frailty, falls, vitamin D deficiency, increased bone turnover, interval significant decline in bone density) and possible under or overestimation of fracture risk by FRAX. Additional medical evaluation for secondary cause of low bone mineral density may be appropriate. FUTURE SCAN RECOMMENDATION: People with diagnosed cases of osteoporosis or at high risk for fracture should have regular bone mineral density tests. For patients eligible for Medicare, routine testing is allowed once every 2 years. The testing frequency can be increased to one year for patients who have rapidly progressing disease, those who are receiving or discontinuing medical therapy to restore bone mass, or have additional risk factors.
--- NOTE | ~2021-02-11 | MM_ITS ---
EXAMINATION: MM SCREENING DIGITAL BREAST TOMOSYNTHESIS, BILATERAL CLINICAL INFORMATION: Screening. Asymptomatic. Prior outside mammography from [place] currently unavailable. Age 65. No known family history breast cancer. The lifetime risk of breast cancer based on the Tyrer-Cuzick Model is 4%. COMPARISON: None. TECHNIQUE: Digital breast tomosynthesis is performed in both the craniocaudal and mediolateral oblique views along with computer-aided detection (CAD). Synthesized 2D images are generated from the tomosynthesis. Additional right MLO view is provided. FINDINGS: There are scattered areas of fibroglandular density (ACR BI-RADS breast composition Category b). There is no significant mass or architectural abnormality. Numerous bilateral benign punctate round and ductal secretory calcifications are present. There are also some scattered benign vascular calcifications. The axilla and skin contours are unremarkable. MM/MM tomosynthesis screening BI IMPRESSION: No mammographic evidence of malignancy. ASSESSMENT: BI-RADS 2: Benign RECOMMENDATION: Routine annual mammography screening. This patient's information was entered into a reminder system with a target due date for their next mammogram.
== END 2021-02-11 10:54 | disposition home or self-care (01) ==
LOC: HO.MAMMO 10:53
PROVIDERS: Visit Provider Internal Medicine
DX: Z12.31 Encounter for screening mammogram for malignant neoplasm of breast (principal); Z13.820 Encounter for screening for osteoporosis; M81.0 Age-related osteoporosis without current pathological fracture; Z78.0 Asymptomatic menopausal state; E27.49 Other adrenocortical insufficiency; Z98.890 Other specified postprocedural states
CPT/HCPCS: 77063; 77067; 77080

== ENCOUNTER → 2021-02-12 13:20 | Outpatient (BNVA) | payer MEDICARE, MEDICAID, SELFPAY | PROVIDERS: Referring Provider Internal Medicine; Visit Provider Internal Medicine Gastroenterology | DX: E66.9 Obesity, unspecified (principal); K70.30 Alcoholic cirrhosis of liver without ascites; B19.20 Unspecified viral hepatitis C without hepatic coma; I10 Essential (primary) hypertension; E11.9 Type 2 diabetes mellitus without complications; E03.9 Hypothyroidism, unspecified; J45.909 Unspecified asthma, uncomplicated; G20 Parkinson's disease; K44.9 Diaphragmatic hernia without obstruction or gangrene; K76.6 Portal hypertension; K31.89 Other diseases of stomach and duodenum; Z68.39 Body mass index [BMI] 39.0-39.9, adult; Z88.6 Allergy status to analgesic agent; Z88.0 Allergy status to penicillin; Z79.899 Other long term (current) drug therapy | CPT/HCPCS: 99212 ==

== ENCOUNTER 2021-02-16 08:39 | Outpatient (REF) | payer MEDICARE, MEDICAID, SELFPAY ==
[2021-02-16 09:01] LABS: MANUAL DIFF FLAG NO
[2021-02-16 09:05] LABS: Basophils Percent Auto 0.3 % (0-2); Eosinophils Absolute Auto 0.1 X10*3/uL (0.0-0.4); Eosinophils Percent Auto 4.7 % (0-4); Hematocrit 36.1 % (37-47); Lymphocytes Absolute Auto 1.1 X10*3/uL (1.2-4.9); Lymphocytes Percent Auto 37.6 % (20-40); Mean Corpuscular HGB Conc 33.2 g/dl (31.0-35.0); Mean Corpuscular Volume 93.3 fL (80-98); Mean Platelet Volume 10.3 fL (9.4-12.3); Monocytes Absolute Auto 0.4 X10*3/uL (0.1-1.2); Monocytes Percent Auto 13.8 % (2-11); Neutrophils Absolute Auto 1.3 X10*3/uL (2.0-8.3); Neutrophils Percent Auto 43.6 % (45-73); Red Blood Count 3.87 X10*6/uL (4.20-5.50)
[2021-02-16 09:08] LABS: INTERNATIONAL NORM RATIO 1.3 (0.9-1.1); Prothrombin Time 14.9 SEC (9.9-13.0)
[2021-02-16 09:14] LABS: Ammonia 167 umol/L (13-55)
[2021-02-16 09:30] LABS: Alanine Aminotransferase 20 U/L (0-31); Alkaline Phosphatase 199 U/L (39-117); Anion Gap 10 (12-20); Aspartate Amino Transferase 73 U/L (5-31); Bilirubin Total 1.4 mg/dL (0.0-1.0); Blood Urea Nitrogen 12 mg/dL (9-16); Carbon Dioxide 29 mmol/L (22-29); Chloride 108 mmol/L (96-108); Estimated Glomerular Filt Rate > 60; Glucose Random 255 mg/dL (60-115); Potassium 4.5 mmol/L (3.3-5.1); Sodium 142 mmol/L (135-145); Total Protein 7.9 g/dL (6.5-8.0)
[2021-02-16 10:44] LABS: Platelet Count 89 X10*3/uL (160-400)
== END 2021-02-16 08:40 | disposition home or self-care (01) ==
LOC: HO.LAB 08:39
PROVIDERS: PCP Internal Medicine; Visit Provider Internal Medicine Gastroenterology
DX: K70.30 Alcoholic cirrhosis of liver without ascites (principal)
CPT/HCPCS: 36415; 80053; 82140; 85025; 85610

== ENCOUNTER → 2021-04-23 12:35 | Outpatient (BNVA) | payer MEDICARE, MEDICAID, SELFPAY | PROVIDERS: Visit Provider Internal Medicine Gastroenterology | DX: Z12.11 Encounter for screening for malignant neoplasm of colon (principal); K70.30 Alcoholic cirrhosis of liver without ascites; B19.20 Unspecified viral hepatitis C without hepatic coma; Z23 Encounter for immunization | CPT/HCPCS: 90471; 90746; 99212 ==

== ENCOUNTER 2021-05-13 08:35 | Outpatient (REF) | payer MEDICARE, MEDICAID, SELFPAY ==
--- NOTE | ~2021-05-13 | US_ITS ---
EXAMINATION: US ABDOMEN COMPLETE CLINICAL INFORMATION: Alcoholic cirrhosis of liver without ascites. COMPARISON: X-ray abdomen KUB 05/14/2020. CT abdomen and pelvis 04/03/2020. Ultrasound abdomen 01/15/2020. TECHNIQUE: Real-time imaging of the abdominal viscera. Technically difficult study secondary to body habitus. FINDINGS: PANCREAS: Not well visualized due to bowel gas ABDOMINAL AORTA: The proximal, mid, and distal segments are normal in caliber. INFERIOR VENA CAVA: Visualized portions are normal. LIVER: Liver echotexture is increased and heterogeneous. The contour of the liver is irregular or scalloped suggestive of cirrhosis. The liver does not appear enlarged. There is a hypoechoic area in the right lobe of the liver questionable for a lesion. This measures 2.5 x 1.9 x 2.4 cm. GALLBLADDER: Surgically absent. COMMON BILE DUCT: Normal in caliber measuring 0.7 cm in diameter. RIGHT KIDNEY: Normal. No hydronephrosis. No renal calculi or focal parenchymal lesions. The kidney measures 11.8 cm in maximum dimension. The previously identified right hydronephrosis on 2020 imaging is no longer seen. LEFT KIDNEY: Normal. No hydronephrosis. No renal calculi or focal parenchymal lesions. The kidney measures 10.8 cm in maximum dimension. SPLEEN: Normal. The spleen measures 11.8 cm in maximum dimension. FREE FLUID: None. US/US abdomen complete IMPRESSION: Cirrhotic-appearing liver. Question 2.5 x 1.9 x 2.4 cm hypoechoic lesion in the right lobe of the liver. Follow-up liver MRI recommended. Limited visualization of the pancreas.
== END 2021-05-13 08:36 | disposition home or self-care (01) ==
LOC: HO.US 08:35
PROVIDERS: PCP Internal Medicine; Visit Provider Internal Medicine Gastroenterology
DX: K70.30 Alcoholic cirrhosis of liver without ascites (principal)
CPT/HCPCS: 76700

== ENCOUNTER 2021-08-06 12:45 | Outpatient (REF) | payer MEDICARE, MEDICAID, SELFPAY ==
[2021-08-06 14:06] LABS: MANUAL DIFF FLAG NO
[2021-08-06 14:10] LABS: Basophils Percent Auto 0.5 % (0-2); Eosinophils Absolute Auto 0.1 X10*3/uL (0.0-0.4); Eosinophils Percent Auto 2.2 % (0-4); Hematocrit 37.8 % (37.0-47.0); Hemoglobin 12.6 g/dl (12.0-16.0); Imm Gran Abs Auto 0.01 X10*3/uL (0.00-0.03); Imm Gran Pct Auto 0.2 % (0.0-0.4); Lymphocytes Absolute Auto 1.5 X10*3/uL (1.2-4.9); Lymphocytes Percent Auto 36.1 % (20-40); Mean Corpuscular HGB Conc 33.3 g/dl (31.0-35.0); Mean Corpuscular Hemoglobin 31.7 pg (27.0-33.0); Mean Corpuscular Volume 95.2 fL (80.0-98.0); Mean Platelet Volume 10.3 fL (9.4-12.3); Monocytes Absolute Auto 0.5 X10*3/uL (0.1-1.2); Monocytes Percent Auto 12.4 % (2-11); Neutrophils Percent Auto 48.6 % (45-73); Red Blood Count 3.97 X10*6/uL (4.20-5.50); Red Cell Distribution Width 13.7 % (11.0-16.0)
[2021-08-06 14:14] LABS: INTERNATIONAL NORM RATIO 1.3 (0.9-1.1); Platelet Count 91 X10*3/uL (160-400); Prothrombin Time 15.3 SEC (9.9-13.0)
[2021-08-06 14:15] LABS: Ammonia 68 umol/L (13-55)
[2021-08-06 14:38] LABS: Alanine Aminotransferase 31 U/L (0-31); Albumin Level 2.8 g/dL (3.5-5.0); Alkaline Phosphatase 142 U/L (39-117); Anion Gap 12 (12-20); Aspartate Amino Transferase 57 U/L (5-31); Bilirubin Total 2.2 mg/dL (0.0-1.0); Blood Urea Nitrogen 10 mg/dL (9-16); Calcium 10.4 mg/dL (8.4-10.2); Carbon Dioxide 27 mmol/L (22-29); Chloride 106 mmol/L (96-108); Estimated Glomerular Filt Rate > 60; Glucose Random 161 mg/dL (60-115); Potassium 4.5 mmol/L (3.3-5.1); Sodium 140 mmol/L (135-145); Total Protein 8.7 g/dL (6.5-8.0)
[2021-08-08 12:17] LABS: Anti Nuclear Antibody Screen NEGATIVE (NEGATIVE)
[2021-08-11 12:55] LABS: Alpha Fetoprotein 5.5 ng/mL
[2021-08-11 22:51] LABS: Smooth Muscle Antibody 20 U (<20)
[2021-08-12 01:47] LABS: Zinc 67 mcg/dL (60-130)
[2021-08-12 15:55] LABS: Mitochondrial Antibodies NEGATIVE (NEGATIVE)
== END 2021-08-06 12:46 | disposition home or self-care (01) ==
LOC: HO.LAB 12:45
PROVIDERS: PCP Internal Medicine; Referring Provider Internal Medicine; Visit Provider Internal Medicine Gastroenterology
DX: Z23 Encounter for immunization (principal); K70.30 Alcoholic cirrhosis of liver without ascites
CPT/HCPCS: 36415; 80053; 82105; 82140; 82248; 84630; 85025; 85610; 86015; 86038; 86039; 86255; 86256; 90471; 90746; 99212

== ENCOUNTER 2021-08-12 14:01 | Outpatient (REF) | payer MEDICARE, MEDICAID, SELFPAY ==
--- NOTE | ~2021-08-12 | MR_ITS ---
EXAMINATION: MR ABDOMEN WITHOUT AND WITH CONTRAST CLINICAL INFORMATION: Cirrhosis COMPARISON: Previous abdominal ultrasound April [address] of the abdomen and pelvis March 2020 TECHNIQUE: MR abdomen was performed without and with use of 10 mL intravenous Gadavist gadolinium contrast. Postcontrast images are performed in multiphase dynamic sequences. Imaging was performed in 3 planes. Exam is limited due to artifact from respiratory motion. FINDINGS: LUNG BASES: The visualized lung bases are unremarkable. LIVER, GALLBLADDER, AND BILIARY TREE: There is hypertrophy of the left lobe and caudate lobe of the liver. The contour of the liver appears slightly irregular. Findings are suggestive of mild cirrhosis. Evaluation for liver lesion is somewhat limited due to artifact from respiratory motion. There is question of a 1 x 1.7 cm lesion in the inferior posterior segment of the right lobe of the liver. This is not appreciated on early arterial phase imaging. This is seen on later portal phase imaging axial image 73 postcontrast. This is not appreciated on noncontrast images and appearance is questionable for artifact related to bowel. The hepatic veins and portal veins are patent. The gallbladder has been removed. There is no intrahepatic or extrahepatic biliary duct dilatation. The common bile duct measures 4 mm. No common bile duct stone is seen. PANCREAS: Pancreas is normal. The main pancreatic duct is normal. SPLEEN: The spleen is slightly prominent measuring 14.8 cm in AP dimension. ADRENAL GLANDS: Normal. KIDNEYS AND URETERS: There are small right renal cysts. The kidneys are otherwise unremarkable. GASTROINTESTINAL TRACT: No bowel obstruction. No ascites or fluid collection. ABDOMINAL WALL: No significant hernia is appreciated. LYMPH NODES: No lymphadenopathy. VASCULAR: There are paraesophageal and perigastric varices. There is no ascites. OSSEOUS STRUCTURES: There are degenerative changes of the spine. MR/MR abdomen wo/w con IMPRESSION: Cirrhotic liver. Evaluation of the liver is limited due to artifact from respiratory motion. Question lesion in the inferior posterior segment of the right lobe of the liver measuring 1 x 1.7 cm versus artifact due to motion and partial volume averaging with the adjacent bowel. Follow-up by CT with IV contrast according to dedicated liver phase imaging should be considered. Upper normal-size spleen. Paraesophageal and perigastric varices. No ascites. Small right renal cysts.
== END 2021-08-12 14:02 | disposition home or self-care (01) ==
LOC: HO.MRI 14:01
PROVIDERS: Visit Provider Internal Medicine Gastroenterology
DX: K70.30 Alcoholic cirrhosis of liver without ascites (principal)
CPT/HCPCS: 74183; A9585

== ENCOUNTER 2021-09-08 09:06 | Outpatient (REF) | payer MEDICARE, MEDICAID, SELFPAY ==
--- NOTE | ~2021-09-08 | CT_ITS ---
EXAMINATION: CT liver 3 phase CLINICAL INFORMATION: Cirrhosis COMPARISON: MR abdomen 08/12/2021, abdominal ultrasound 05/13/2021 TECHNIQUE: Multidetector volumetric imaging was performed of the abdomen before and following administration of 100 mL Omnipaque 300 intravenous contrast. Sagittal and coronal reformatted images were obtained on the technologist's workstation. This CT examination was performed using dose optimization techniques as appropriate, variously including the following: *Automated exposure control *Adjustment of mA and/or kV according to patient size (this includes techniques or standardized protocols for targeted exams where dose is matched to indication/reason for exam; i.e. extremities or head) *Use of iterative reconstruction technique DLP: 1530 mGy-cm FINDINGS: LUNG BASES: Visualized lung bases are unremarkable. ABDOMINAL AND PELVIC WALL: Unremarkable. LIVER AND BILIARY TREE: Cirrhotic morphology of the liver with a nodular hepatic contour. No discrete liver lesion seen to correspond to the MRI or sonographic findings. No LI RADS 5 observations. GALLBLADDER: Status post cholecystectomy. PANCREAS: Unremarkable SPLEEN: Unremarkable ADRENAL GLANDS: Unremarkable. KIDNEYS AND URETERS: Mild hydroureteronephrosis. No obstructing stone visualized however the pelvis was not imaged. UPPER GASTROINTESTINAL TRACT: The stomach and duodenum are unremarkable. VASCULAR: Large periesophageal and perigastric varices. Retroaortic left renal vein. LYMPH NODES: No lymphadenopathy. FREE FLUID: No free fluid. LOWER GASTROINTESTINAL TRACT: Colonic diverticulosis without evidence of diverticulitis. Normal appendix. OSSEOUS STRUCTURES: CT/CT liver 3 phase IMPRESSION: Cirrhotic morphology of the liver. No LI RADS [address] findings to correspond to suspected MRI or sonographic lesion in the liver however given prior findings consider a 3-6 month follow-up CT or MR liver protocol. Mild hydroureteronephrosis. No obstructing stone visualized however the pelvis was not imaged. Recommend correlation with clinical symptoms and if any clinical concern for obstructing stone a CT stone protocol could be obtained. Sequelae of portal hypertension including large periesophageal and perigastric varices.
[2021-09-08 10:53] LABS: Blood Urea Nitrogen 9 mg/dL (9-16); Estimated Glomerular Filt Rate > 60
[2021-09-08] MEDS: iohexoL 350 MG/ML 100 ML INFUS..BTL IV (15:02)
== END 2021-09-08 09:07 | disposition home or self-care (01) ==
LOC: HO.CT 09:06
PROVIDERS: PCP Internal Medicine; Visit Provider Internal Medicine Gastroenterology
DX: K74.60 Unspecified cirrhosis of liver (principal); R93.2 Abnormal findings on diagnostic imaging of liver and biliary tract
CPT/HCPCS: 36415; 74170; 82565; 84520; Q9967

== ENCOUNTER 2021-11-09 17:51 | Inpatient (IN) | payer MEDICARE, MEDICAID, SELFPAY ==
--- NOTE | ~2021-11-09 | CT_ITS ---
EXAMINATION: CT HEAD, CT CERVICAL, THORACIC AND LUMBAR SPINE WITHOUT CONTRAST. CLINICAL INFORMATION: Fall, head trauma. COMPARISON: None TECHNIQUE: Axial 5 mm thin and reformatted 2 mm thin sagittal and coronal images of brain were obtained. Axial 3 mm thin and reformatted 2 mm thin sagittal and coronal images of cervical spine were obtained. DLP 1146. Subsequently axial 2 mm thin and reformatted 2 mm thin sagittal and coronal images of thoracic and lumbar spine were obtained. DLP 2021. FINDINGS: Brain: There is no acute intra-axial, extra-axial bleed, masses or collection. There is no midline shift. There is no edema or acute infarct. The rojas to white matter difference is maintained normal. The lateral ventricles are symmetrical in size and configuration. Bone windows reveal no calvarial abnormality. There is no scalp soft tissue abnormality either. The paranasal sinuses and mastoid air cells are well-aerated. Moderate deviation of nasal septum to left is noted. Cervical spine: On sagittal reconstructed images there is mild straightening of cervical lordosis likely spasm or positional. There is loss of C5-C6 disc height with mild ventral spondylosis. Rest of the disc heights, vertebral heights and alignment is normal. The craniovertebral junction and the C1-C2 alignment is normal. There is mild left apical pleural thickening. Thoracic spine: On sagittal reconstructed images there is maintained thoracic kyphosis. The vertebral heights, alignment and disc heights are normal. There is mild ventral spondylosis at T10-T11 disc level. There is no acute compression fracture or dislocation. The paravertebral soft tissues are normal. Lumbar spine: There is normal lumbar lordosis the vertebral heights, alignment and disc heights are normal. There is no visible acute fracture, dislocation or lytic process seen. There is mild L5-S1 facet joint degenerative arthropathy. The paravertebral soft tissues are normal. Visualized SI joints are symmetrical with mild degeneration. The sacrum appears unremarkable. CT/CT thoracic spine wo con IMPRESSION: No acute intracranial process seen. Mild degenerative C5-C6 disc disease with ventral spondylosis. No acute fracture or dislocation seen. Mild straightening of cervical lordosis likely spasm. There is no visible acute fracture, dislocation or bony abnormality involving the thoracic or lumbar spine.
--- NOTE | ~2021-11-09 | XR_ITS ---
EXAMINATION: XR CHEST CLINICAL INFORMATION: Influenza COMPARISON: 04/02/2020 TECHNIQUE: Frontal view of the chest was obtained. FINDINGS: Heart size upper limits of normal. Some coarse interstitial markings are seen similar to prior. No consolidations, suspicious lung masses or pleural effusions are seen. XR/XR chest 1V IMPRESSION: No acute intrathoracic disease. Appearances are similar to the 04/02/2020 study.
--- NOTE | 2021-11-09 18:00 | ED_ITS ---
HPI - Fall General Chief Complaint: Fall Stated Complaint: fall/dizzy Time Seen by Provider: 11/09/21 20:49 Source: patient and EMS Mode of arrival: EMS Limitations: language barrier History of Present Illness HPI Narrative: 66-year-old female presents via EMS for injuries sustained from a fall. She is in a C-collar, is Ukrainian-speaking. States that she has been sick for several days, was dizzy when she tried to stand up from her hit the right side of her head her night table. She is complaining of back pain from cervical spine to coccyx, and headache. MD complaint: fall Onset (ago): hour(s) (Within the hour arrived) Fall from: standing Fall witnessed: no Place fall occurred: home Loss of consciousness: unsure Prolonged down time: no Symptoms prior to fall: dizziness Context: recent illness Location of injury: head, neck and back Severity: moderate Quality: aching Associated symptoms (after fall): headache, neck pain and other (Back and coccyx pain) Related Data Home Medications Medication Instructions Recorded Confirmed acarbose 25 mg tablet 25 mg PO TIDWMEAL 04/21/20 11/09/21 atorvastatin 20 mg tablet 20 mg PO BEDTIME 04/21/20 11/09/21 carbidopa 25 mg-levodopa 100 mg 1 tab PO TID 04/21/20 11/09/21 tablet furosemide 20 mg tablet 20 mg PO DAILY 04/21/20 11/09/21 gabapentin 300 mg capsule 300 mg PO TID 04/21/20 11/09/21 glipizide 10 mg tablet 10 mg PO BIDAC 04/21/20 11/09/21 levothyroxine 75 mcg tablet 75 mcg PO DAILY 04/21/20 11/09/21 linagliptin 2.5 mg-metformin 1,000 1 tab PO BIDWM 04/21/20 11/09/21 mg tablet (Jentadueto) lisinopril 2.5 mg tablet 2.5 mg PO DAILY 04/21/20 11/09/21 montelukast 10 mg tablet 10 mg PO BEDTIME 04/21/20 11/09/21 omeprazole 20 mg capsule,delayed 20 mg PO DAILY 04/21/20 11/09/21 release albuterol sulfate 90 mcg/actuation 2 puff INHALATION Q4-6H PRN 11/09/21 11/09/21 aerosol inhaler (Ventolin HFA) alendronate 70 mg tablet 1 tab PO SINCLAIR@0600 11/09/21 11/09/21 calcium carbonate 500 mg-vitamin 1 tab QAM 11/09/21 11/09/21 D3 10 mcg (400 unit) tablet (Oyster Shell Calcium-Vitamin D3) Allergies Allergy/AdvReac Type Severity Reaction Status Date / Time aspirin [ASPIRIN] Allergy Intermediate HIVES Verified 08/06/21 12:59 Penicillins [PCN] Allergy Intermediate HIVES Verified 08/06/21 12:59 Review of Systems Review of Systems: Constitutional: Positive headache, positive dizziness, No Fever, No Chills ENT/Mouth: No Ear Pain, No Hoarseness, No sore throat Eyes: No Eye Pain, No Swelling, No Redness, No Foreign Body Cardiovascular: No Chest Pain, No SOB Respiratory: No Cough, No Dyspnea Gastrointestinal: No Nausea, No Vomiting, No Diarrhea, No abdominal Pain Genitourinary: No Dysuria, No Hematuria Musculoskeletal: positive neck, thoracic lumbar and coccyx pain, No Myalgias, No Joint Swelling Skin: No Skin lacerations, No rash Neuro: No Weakness, No Numbness, No Paresthesias, No Loss of Consciousness, positive Dizziness, positive Headache Psych: No Anxiety/Panic, No Depression Heme/Lymph: no easy bruising, no Lymphadenopathy Endocrine: No Polyuria, No Polydipsia Yes all other systems are reviewed and are negative PENDING SALE TO [facility] Past Medical History Attestation statement: The following information was validated with the patient. Source: old records reviewed Medical History Anemia Cirrhosis Diabetes Hx of hepatitis C Hypertension Hyperthyroidism Parkinson disease Severe sepsis Surgical History H/O colonoscopy History of cystoscopy History of esophagogastroduodenoscopy (EGD) Hx of lithotripsy Family History Family History Daughter Diabetes Daughter Diabetes Brother HTN (hypertension) Social History Social History Second Hand Smoke Exposure: No Advance Directives: Yes Advance Directives Information Provided: No Advance Directives on File: No Advance Directives Date on File: 04/25/20 Physical Exam Vital Signs: Vital Signs: Last Vital Signs Temp 101.5 F H 11/09/21 21:41 Pulse 109 H 11/09/21 21:41 Resp 24 H 11/09/21 21:41 BP 127/59 L 11/09/21 21:41 Pulse Ox 94 11/09/21 21:41 BMI result Body Mass Index 60.4 Appearance: Alert. Oriented X3. Moderate distress. Eyes: Pupils equal, round and reactive to light. ENT: Pharynx normal. Dry mucous membranes. Neck: Normal inspection. Neck supple. Vertebral tenderness noted at cervical 3 through 6, thoracic 5 through 7, lumbar and coccyx. No step-offs. CVS: Normal heart rate and rhythm. Pulses normal. Chest wall tenderness to palpation. Respiratory: No respiratory distress. Breath sounds normal. Abdomen: Soft and nontender. Skin: Skin warm and dry. Normal skin color. Normal skin turgor. Extremities: Pelvis is stable. Moves all extremities against resistance. Strength 5/5. Neuro: No motor deficit. No sensory deficit. Cranial nerves 2-12 intact. Course Course Course Narrative: 66-year-old female presents via EMS in a C-collar for fall with head strike on the right temporal. Patient stated that she was dizzy when she was trying to stand up and lost her balance. Also reports that she has felt ill for the past several days and that she has sick family members. 18:24 patient has a temperature 103.3 degrees oral, elevated heart rate of 106. Patient has not been feeling well for the past few days. Influenza is suspected. SARs COVID test changed to 2 separate COVID and influenza ab it so the test will come back quicker. I will not start fluid resuscitation due to influenza has been ruled out. 19:10 sepsis protocol started at this time. Fluid resuscitation at 2000 mL of normal saline per ideal body weight. Patient is morbidly obese. Lactic acid is 4.7, bilirubin 2.4, AST 177, ALT 44, alk-phos 131, BNP 93. No indication of CHF at this time. Lipase 182. Patient does have cirrhosis and lab values are consistent with prior values with the exception of the AST which is about 100 points higher than her average. 19:16 patient is influenza A positive. . 20:21 CT scans negative for acute findings. C-collar removed at this time. Urinalysis is pending. Fluid still infusing at this time. Patient alert oriented x4, No focal neural deficits 22:24 urinalysis negative. Discussion with hospitalist regarding plan for admission. Call out to [facility] so they could comment on chest in the thoracic CT workup. Consultations Consultation #1: Sanjiv Time: 22:24 MDM - Fall MDM Narrative Medical decision making narrative: UTI, sepsis, influenza, COVID Differential Diagnosis Differential diagnosis: Likely syncope, dislocation, fracture, compression fracture and concussion without loss of consciousness Medical Records Attestation: I reviewed the patient's medical records. Lab Data Attestation: I reviewed the patient's lab results. Result diagrams: 11/09/21 18:33 11/09/21 18:33 Labs: Lab Results 11/09/21 11/09/21 11/09/21 Range/Units 18:32 18:32 18:33 WBC 4.2 L (4.8-10.8) X10*3/uL RBC 3.42 L (4.20-5.50) X10*6/uL Hgb 10.7 L (12.0-16.0) g/dl Hct 32.2 L (37.0-47.0) % MCV 94.2 (80.0-98.0) fL MCH 31.3 (27.0-33.0) pg MCHC 33.2 (31.0-35.0) g/dl RDW 14.1 (11.0-16.0) % Plt Count TNP MPV 10.5 (9.4-12.3) fL Immature Gran % (Auto) 0.5 H (0.0-0.4) % Neut % (Auto) 69.1 (45-73) % Lymph % (Auto) 13.1 L (20-40) % [place] % (Auto) 16.9 H (2-11) % Eos % (Auto) 0.2 (0-4) % Baso % (Auto) 0.2 (0-2) % Lymph # (Auto) 0.6 L (1.2-4.9) X10*3/uL [place] # (Auto) 0.7 (0.1-1.2) X10*3/uL Eos # (Auto) 0.0 (0.0-0.4) X10*3/uL Baso # (Auto) 0.0 (0.0-0.2) X10*3/uL Abs Immat Gran (auto) 0.02 (0.00-0.03) X10*3/uL Absolute Neuts (auto) 2.9 (2.0-8.3) x10*3/uL Absolute Nucleated RBC 0.000 (0.0-0.012) X10*3/uL Nucleated RBC % (auto) 0.0 (0.0-0.2) /100WBC Smear Tech's Comments VERIFIED PT (9.9-13.0) SEC INR (0.9-1.1) Sodium (135-145) mmol/L Potassium (3.3-5.1) mmol/L Chloride (96-108) mmol/L Carbon Dioxide (22-29) mmol/L Anion Gap (12-20) BUN (9-16) mg/dL Creatinine (0.5-1.4) mg/dL Estim Creat Clear Calc Estimated GFR Random Glucose (60-115) mg/dL Lactic Acid (0.5-2.0) mmol/L Lactic Acid F/U @ 2Hr (0.5-2.0) mmol/L Calcium (8.4-10.2) mg/dL Magnesium Cancelled Total Bilirubin (0.0-1.0) mg/dL Direct Bilirubin (0.0-0.5) mg/dL AST (5-31) U/L ALT (0-31) U/L Alkaline Phosphatase (39-117) U/L Troponin I High Sens (<3.5-17.0) ng/L B-Natriuretic Peptide (<100) pg/mL Total Protein (6.5-8.0) g/dL Albumin (3.5-5.0) g/dL Lipase (8-78) U/L TSH 0.39 (0.32-4.0) uIU/mL Urine Color Urine Appearance Urine pH (5.0-8.0) Ur Specific [place] (1.005-1.025) Urine Protein (NEG-TRACE) MG/DL Urine Glucose (UA) (NEG) MG/DL Urine Ketones (NEG) MG/DL Urine Blood (NEG) Urine Nitrite (NEG) Ur Leukocyte Esterase (NEG) Urine RBC (0) /HPF Urine WBC (0-4) /HPF Ur Squamous Epith Cells /LPF Uric Acid Crystals /LPF Urine Bacteria /LPF COVID-19 (KERMIT) (Negative) COVID-19 Clin Com Influenza Type A (ANDRA) Positive A (Negative) Influenza Type B (ANDRA) Negative (Negative) Influenza A & B Note See Note 11/09/21 11/09/21 11/09/21 Range/Units 18:33 18:33 18:33 WBC (4.8-10.8) X10*3/uL RBC (4.20-5.50) X10*6/uL Hgb (12.0-16.0) g/dl Hct (37.0-47.0) % MCV (80.0-98.0) fL MCH (27.0-33.0) pg MCHC (31.0-35.0) g/dl RDW (11.0-16.0) % Plt Count MPV (9.4-12.3) fL Immature Gran % (Auto) (0.0-0.4) % Neut % (Auto) (45-73) % Lymph % (Auto) (20-40) % [place] % (Auto) (2-11) % Eos % (Auto) (0-4) % Baso % (Auto) (0-2) % Lymph # (Auto) (1.2-4.9) X10*3/uL [place] # (Auto) (0.1-1.2) X10*3/uL Eos # (Auto) (0.0-0.4) X10*3/uL Baso # (Auto) (0.0-0.2) X10*3/uL Abs Immat Gran (auto) (0.00-0.03) X10*3/uL Absolute Neuts (auto) (2.0-8.3) x10*3/uL Absolute Nucleated RBC (0.0-0.012) X10*3/uL Nucleated RBC % (auto) (0.0-0.2) /100WBC Smear Tech's Comments PT 18.7 H (9.9-13.0) SEC INR 1.6 H (0.9-1.1) Sodium 136 (135-145) mmol/L Potassium 4.0 (3.3-5.1) mmol/L Chloride 107 (96-108) mmol/L Carbon Dioxide 20 L (22-29) mmol/L Anion Gap 13 (12-20) BUN 9 (9-16) mg/dL Creatinine 0.70 (0.5-1.4) mg/dL Estim Creat Clear Calc TNP Estimated GFR > 60 Random Glucose 90 (60-115) mg/dL Lactic Acid (0.5-2.0) mmol/L Lactic Acid F/U @ 2Hr (0.5-2.0) mmol/L Calcium 8.6 D (8.4-10.2) mg/dL Magnesium 1.5 L Total Bilirubin 2.4 H (0.0-1.0) mg/dL Direct Bilirubin 1.2 H (0.0-0.5) mg/dL AST 177 H (5-31) U/L ALT 44 H (0-31) U/L Alkaline Phosphatase 131 H (39-117) U/L Troponin I High Sens 8.4 (<3.5-17.0) ng/L B-Natriuretic Peptide 93 (<100) pg/mL Total Protein 7.4 (6.5-8.0) g/dL Albumin 2.5 L (3.5-5.0) g/dL Lipase 182 H (8-78) U/L TSH (0.32-4.0) uIU/mL Urine Color Urine Appearance Urine pH (5.0-8.0) Ur Specific [place] (1.005-1.025) Urine Protein (NEG-TRACE) MG/DL Urine Glucose (UA) (NEG) MG/DL Urine Ketones (NEG) MG/DL Urine Blood (NEG) Urine Nitrite (NEG) Ur Leukocyte Esterase (NEG) Urine RBC (0) /HPF Urine WBC (0-4) /HPF Ur Squamous Epith Cells /LPF Uric Acid Crystals /LPF Urine Bacteria /LPF COVID-19 (KERMIT) (Negative) COVID-19 Clin Com Influenza Type A (ANDRA) (Negative) Influenza Type B (ANDRA) (Negative) Influenza A & B Note 11/09/21 11/09/21 11/09/21 Range/Units 18:38 21:27 21:43 WBC (4.8-10.8) X10*3/uL RBC (4.20-5.50) X10*6/uL Hgb (12.0-16.0) g/dl Hct (37.0-47.0) % MCV (80.0-98.0) fL MCH (27.0-33.0) pg MCHC (31.0-35.0) g/dl RDW (11.0-16.0) % Plt Count MPV (9.4-12.3) fL Immature Gran % (Auto) (0.0-0.4) % Neut % (Auto) (45-73) % Lymph % (Auto) (20-40) % [place] % (Auto) (2-11) % Eos % (Auto) (0-4) % Baso % (Auto) (0-2) % Lymph # (Auto) (1.2-4.9) X10*3/uL [place] # (Auto) (0.1-1.2) X10*3/uL Eos # (Auto) (0.0-0.4) X10*3/uL Baso # (Auto) (0.0-0.2) X10*3/uL Abs Immat Gran (auto) (0.00-0.03) X10*3/uL Absolute Neuts (auto) (2.0-8.3) x10*3/uL Absolute Nucleated RBC (0.0-0.012) X10*3/uL Nucleated RBC % (auto) (0.0-0.2) /100WBC Smear Tech's Comments PT (9.9-13.0) SEC INR (0.9-1.1) Sodium (135-145) mmol/L Potassium (3.3-5.1) mmol/L Chloride (96-108) mmol/L Carbon Dioxide (22-29) mmol/L Anion Gap (12-20) BUN (9-16) mg/dL Creatinine (0.5-1.4) mg/dL Estim Creat Clear Calc Estimated GFR Random Glucose (60-115) mg/dL Lactic Acid 4.7 H* (0.5-2.0) mmol/L Lactic Acid F/U @ 2Hr (0.5-2.0) mmol/L Calcium (8.4-10.2) mg/dL Magnesium Total Bilirubin (0.0-1.0) mg/dL Direct Bilirubin (0.0-0.5) mg/dL AST (5-31) U/L ALT (0-31) U/L Alkaline Phosphatase (39-117) U/L Troponin I High Sens (<3.5-17.0) ng/L B-Natriuretic Peptide (<100) pg/mL Total Protein (6.5-8.0) g/dL Albumin (3.5-5.0) g/dL Lipase (8-78) U/L TSH (0.32-4.0) uIU/mL Urine Color YELLOW Urine Appearance CLEAR Urine pH 5.5 (5.0-8.0) Ur Specific [place] >= 1.030 H (1.005-1.025) Urine Protein NEG (NEG-TRACE) MG/DL Urine Glucose (UA) NEG (NEG) MG/DL Urine Ketones NEG (NEG) MG/DL Urine Blood 2+ H (NEG) Urine Nitrite NEG (NEG) Ur Leukocyte Esterase NEG (NEG) Urine RBC 0-2 (0) /HPF Urine WBC 0 (0-4) /HPF Ur Squamous Epith Cells TRACE /LPF Uric Acid Crystals 1+ /LPF Urine Bacteria TRACE /LPF COVID-19 ([facility]ERMIT) Negative (Negative) COVID-19 Clin Com See Note Influenza Type A (ANDRA) (Negative) Influenza Type B (ANDRA) (Negative) Influenza A & B Note 11/09/21 Range/Units 22:17 WBC (4.8-10.8) X10*3/uL RBC (4.20-5.50) X10*6/uL Hgb (12.0-16.0) g/dl Hct (37.0-47.0) % MCV (80.0-98.0) fL MCH (27.0-33.0) pg MCHC (31.0-35.0) g/dl RDW (11.0-16.0) % Plt Count MPV (9.4-12.3) fL Immature Gran % (Auto) (0.0-0.4) % Neut % (Auto) (45-73) % Lymph % (Auto) (20-40) % [place] % (Auto) (2-11) % Eos % (Auto) (0-4) % Baso % (Auto) (0-2) % Lymph # (Auto) (1.2-4.9) X10*3/uL [place] # (Auto) (0.1-1.2) X10*3/uL Eos # (Auto) (0.0-0.4) X10*3/uL Baso # (Auto) (0.0-0.2) X10*3/uL Abs Immat Gran (auto) (0.00-0.03) X10*3/uL Absolute Neuts (auto) (2.0-8.3) x10*3/uL Absolute Nucleated RBC (0.0-0.012) X10*3/uL Nucleated RBC % (auto) (0.0-0.2) /100WBC Smear Tech's Comments PT (9.9-13.0) SEC INR (0.9-1.1) Sodium (135-145) mmol/L Potassium (3.3-5.1) mmol/L Chloride (96-108) mmol/L Carbon Dioxide (22-29) mmol/L Anion Gap (12-20) BUN (9-16) mg/dL Creatinine (0.5-1.4) mg/dL Estim Creat Clear Calc Estimated GFR Random Glucose (60-115) mg/dL Lactic Acid (0.5-2.0) mmol/L Lactic Acid F/U @ 2Hr 3.3 H* (0.5-2.0) mmol/L Calcium (8.4-10.2) mg/dL Magnesium Total Bilirubin (0.0-1.0) mg/dL Direct Bilirubin (0.0-0.5) mg/dL AST (5-31) U/L ALT (0-31) U/L Alkaline Phosphatase (39-117) U/L Troponin I High Sens (<3.5-17.0) ng/L B-Natriuretic Peptide (<100) pg/mL Total Protein (6.5-8.0) g/dL Albumin (3.5-5.0) g/dL Lipase (8-78) U/L TSH (0.32-4.0) uIU/mL Urine Color Urine Appearance Urine pH (5.0-8.0) Ur Specific [place] (1.005-1.025) Urine Protein (NEG-TRACE) MG/DL Urine Glucose (UA) (NEG) MG/DL Urine Ketones (NEG) MG/DL Urine Blood (NEG) Urine Nitrite (NEG) Ur Leukocyte Esterase (NEG) Urine RBC (0) /HPF Urine WBC (0-4) /HPF Ur Squamous Epith Cells /LPF Uric Acid Crystals /LPF Urine Bacteria /LPF COVID-19 ([facility]ERMIT) (Negative) COVID-19 Clin Com Influenza Type A (ANDRA) (Negative) Influenza Type B (ANDRA) (Negative) Influenza A & B Note Imaging Data CT head cervical spine, thoracic spine and lumbar spine.: Attestation: I personally reviewed and interpreted this imaging study as follows: Radiologist's impression: EXAMINATION: CT HEAD, CT CERVICAL, THORACIC AND LUMBAR SPINE WITHOUT CONTRAST. CLINICAL INFORMATION: Fall, head trauma.? COMPARISON: None? TECHNIQUE: Axial 5 mm thin and reformatted 2 mm thin sagittal and coronal images of brain were obtained. Axial 3 mm thin and reformatted 2 mm thin sagittal and coronal images of cervical spine were obtained. DLP 1146. Subsequently axial 2 mm thin and reformatted 2 mm thin sagittal and coronal images of thoracic and lumbar spine were obtained. DLP 2.? FINDINGS: Brain: There is no acute intra-axial, extra-axial bleed, masses or collection. There is no midline shift. There is no edema or acute infarct. The rojas to white matter difference is maintained normal. The lateral ventricles are symmetrical in size and configuration. Bone windows reveal no calvarial abnormality. There is no scalp soft tissue abnormality either. The paranasal sinuses and mastoid air cells are well-aerated. Moderate deviation of nasal septum to left is noted. Cervical spine: On sagittal reconstructed images there is mild straightening of cervical lordosis likely spasm or positional. There is loss of C5-C6 disc height with mild ventral spondylosis. Rest of the disc heights, vertebral heights and alignment is normal. The craniovertebral junction and the C1-C2 alignment is normal. There is mild left apical pleural thickening. Thoracic spine: On sagittal reconstructed images there is maintained thoracic kyphosis. The vertebral heights, alignment and disc heights are normal. There is mild ventral spondylosis at T10-T11 disc level. There is no acute compression fracture or dislocation. The paravertebral soft tissues are normal. Lumbar spine: There is normal lumbar lordosis the vertebral heights, alignment and disc heights are normal. There is no visible acute fracture, dislocation or lytic process seen. There is mild L5-S1 facet joint degenerative arthropathy. The paravertebral soft tissues are normal. Visualized SI joints are symmetrical with mild degeneration. The sacrum appears unremarkable. CT/CT cervical spine wo con IMPRESSION: No acute intracranial process seen. ? Mild degenerative C5-C6 disc disease with ventral spondylosis. No acute fracture or dislocation seen. Mild straightening of cervical lordosis likely spasm. ? There is no visible acute fracture, dislocation or bony abnormality involving the thoracic or lumbar spine.? Chest x-ray: Attestation: I personally reviewed and interpreted this imaging study as follows: Radiologist's impression: EXAMINATION: XR CHEST CLINICAL INFORMATION: Influenza COMPARISON: 04/02/2020 TECHNIQUE: Frontal view of the chest was obtained. FINDINGS: Heart size upper limits of normal. Some coarse interstitial markings are seen similar to prior. No consolidations, suspicious lung masses or pleural effusions are seen. XR/XR chest 1V IMPRESSION: No acute intrathoracic disease. Appearances are similar to the 04/02/2020 study. ECG Data Attestation: I personally reviewed and interpreted this ECG as follows: ECG interpretation date: 11/09/21 ECG interpretation time: 18:08 Prior ECG tracings: available for review Interpretation: Vent. rate 102 BPM OR interval 120 ms QRS duration 82 ms QT/QTc 322/419 ms P-R-T axes 48 6 [address] and T wave abnormality Abnormal ECG When compared with ECG of 02-APR-2020 23:49, No significant change was found Critical Care Time Critical Care Time Critical Care Time: Yes Total Critical Care Time: 45 Attestation: I have personally provided critical care time exclusive of time spent on separately billable procedures. Time includes review of laboratory data, radiology results, discussion with consultants, and monitoring for potential decompensation. Interventions were performed as documented. Discharge Plan Discharge Clinical Impression: Fall, Influenza A, Lactic acidosis, Sepsis Patient Disposition: Admitted As Inpatient
--- NOTE | 2021-11-09 18:04 | ECG_ITS ---
Test Reason : FALL Blood Pressure : / mmHG Vent. Rate : 102 BPM Atrial Rate : 102 BPM P-R Int : 120 ms QRS Dur : 082 ms QT Int : 322 ms P-R-T Axes : 048 006 075 degrees QTc Int : 419 ms Sinus tachycardia Nonspecific ST and T wave abnormality Abnormal ECG When compared with ECG of 02-APR-2020 23:49, No significant change was found Referred By: Viktoriya Quinonez Electronically Signed By:JESSICA SCHMIDT MD
[2021-11-09 18:21] VITALS: BP 140/57; PULSE 106; RESP 20; TEMP 39.6; O2SAT 98
[2021-11-09 18:45] LABS: Basophils Percent Auto 0.2 % (0-2); Eosinophils Percent Auto 0.2 % (0-4); Hematocrit 32.2 % (37.0-47.0); Imm Gran Abs Auto 0.02 X10*3/uL (0.00-0.03); Imm Gran Pct Auto 0.5 % (0.0-0.4); Mean Corpuscular Volume 94.2 fL (80.0-98.0); PLT CLUMP 1; Red Blood Count 3.42 X10*6/uL (4.20-5.50); SCAN SMEAR FLAG 1
[2021-11-09 18:47] LABS: Hemoglobin 10.7 g/dl (12.0-16.0); Lymphocytes Absolute Auto 0.6 X10*3/uL (1.2-4.9); Lymphocytes Percent Auto 13.1 % (20-40); Mean Corpuscular HGB Conc 33.2 g/dl (31.0-35.0); Mean Corpuscular Hemoglobin 31.3 pg (27.0-33.0); Mean Platelet Volume 10.5 fL (9.4-12.3); Monocytes Absolute Auto 0.7 X10*3/uL (0.1-1.2); Monocytes Percent Auto 16.9 % (2-11); Neutrophils Absolute Auto 2.9 x10*3/uL (2.0-8.3); Neutrophils Percent Auto 69.1 % (45-73); Red Cell Distribution Width 14.1 % (11.0-16.0)
[2021-11-09 18:48] LABS: MANUAL DIFF FLAG SCAN
[2021-11-09 19:04] LABS: INTERNATIONAL NORM RATIO 1.6 (0.9-1.1); Prothrombin Time 18.7 SEC (9.9-13.0)
[2021-11-09 19:05] LABS: Alanine Aminotransferase 44 U/L (0-31); Albumin Level 2.5 g/dL (3.5-5.0); Alkaline Phosphatase 131 U/L (39-117); Anion Gap 13 (12-20); Aspartate Amino Transferase 177 U/L (5-31); Bilirubin Direct 1.2 mg/dL (0.0-0.5); Bilirubin Total 2.4 mg/dL (0.0-1.0); Blood Urea Nitrogen 9 mg/dL (9-16); Calcium 8.6 mg/dL (8.4-10.2); Carbon Dioxide 20 mmol/L (22-29); Chloride 107 mmol/L (96-108); Estimated Glomerular Filt Rate > 60; Glucose Random 90 mg/dL (60-115); Lipase 182 U/L (8-78); Magnesium 1.5 mg/dL (1.6-2.6); Sodium 136 mmol/L (135-145); Total Protein 7.4 g/dL (6.5-8.0)
[2021-11-09 19:06] LABS: Lactic Acid 4.7 mmol/L (0.5-2.0)
[2021-11-09 19:07] LABS: B Type Natriuretic Peptide 93 pg/mL (<100); Troponin-I High Sensitivity 8.4 ng/L (<3.5-17.0)
[2021-11-09 19:13] LABS: IDNOW Serial# 55D5AD1C; Influenza A Positive (Negative); Influenza B2 Negative (Negative)
[2021-11-09 19:23] LABS: White Blood Count 4.2 X10*3/uL (4.8-10.8)
[2021-11-09 19:24] LABS: TSH reflex Free T4 0.39 uIU/mL (0.32-4.0)
[2021-11-09 19:26] LABS: SLIDE REVIEW VERIFIED
[2021-11-09 19:27] VITALS: BP 140/57; PULSE 99; RESP 22; TEMP 39.5; O2SAT 100; BMI 60.4
[2021-11-09] MEDS: 0.9 % Sodium Chloride 1,000 ML 999 ML IVCONT ×2 (19:38→21:56)
[2021-11-09] MEDS: Magnesium Sulfate/H2O 2 GM/50 ML PIGGYBACK IV (19:57)
[2021-11-09] MEDS: cefTRIAXone sodium 1 GM in 0.9 % Sodium Chloride 50 ML IV (20:13)
[2021-11-09] MEDS: Acetaminophen 325 MG TABLET 975 MG PO (20:21)
[2021-11-09 20:42] LABS: Reflex Lactate? Lactic Acid Added
[2021-11-09 21:41] VITALS: BP 127/59; PULSE 109; RESP 24; TEMP 38.6; O2SAT 94
[2021-11-09 21:52] LABS: COVID-19 Test Negative (Negative)
[2021-11-09 21:52] LABS: Appearance Urine CLEAR; Color Urine YELLOW; Glucose Urine UA NEG (NEG); Leukocyte Esterase Urine NEG (NEG); Nitrite Urine NEG (NEG); PH 5.5 (5.0-8.0); Specific Gravity - Urine >= 1.030 (1.005-1.025); UACC Culture Trigger NO; Urine Blood 2+ (NEG); Urine Ketones NEG (NEG); Urine Protein NEG (NEG-TRACE)
[2021-11-09 22:06] LABS: Bacteria Urine TRACE /LPF; RBC Urine 0-2 /HPF (0); Squamous Epithelial Cell Urine TRACE /LPF; WBC Urine 0 /HPF (0-4)
[2021-11-09 22:13] LABS: Uric Acid Crystals Urine 1+ /LPF
[2021-11-09 22:35] LABS: ~Lactic Acid-LAB USE ONLY 3.3 mmol/L (0.5-2.0)
--- NOTE | 2021-11-09 23:30 | PM.IMHP ---
History of Present Illness Date of Service: 11/09/21 Chief Complaint: Fall this is a 66-year-old female with past medical history of diabetes, history of psoriasis, have tried it, hypothyroidism, hypertension, Parkinson's disease, who presents to the hospital after a fall. patient reports that she got out of bed, felt very dizzy, and fell on the side of her head. Patient reports that she has not been feeling well for the past 3-4 days. She has been having severe cough, increased shortness of breath, and generally weak. She has also has had significant fatigue and low oral intake. Patient reports fever, generalized body aches, headache. Patient denies any chest pain, no abdominal pain nausea or vomiting, no diarrhea constipation, no urinary symptoms. On arrival to the ED patient's vitals are significant for a temperature of 103.3 degrees, heart rate 106, satting 98% on room air labs are significant for WBC count of 3.7, hemoglobin of 11.1, hematocrit of 34, lactic acid of 4.7, magnesium 1.5, in waited of, influenza A positive, chest x-ray negative pt will be admitted for further management Review of Systems Review of Systems: Yes all other systems are reviewed and are negative [facility] Medical History Anemia Cirrhosis Diabetes Hx of hepatitis C Hypertension Hyperthyroidism Parkinson disease Severe sepsis Family History Daughter Diabetes Daughter Diabetes Brother HTN (hypertension) Surgical History H/O colonoscopy History of cystoscopy History of esophagogastroduodenoscopy (EGD) Hx of lithotripsy Social History Household Members: Unknown / Unable to assess Housing: Unknown / Unable to assess Unable to assess alcohol history related to: Unknown Patient Tobacco Use Status: Tobacco use Unknown Second Hand Smoke Exposure: No Use of substances other than those prescribed or required for medical reasons: Unable to respond Advance Directives: Yes Advance Directives Information Provided: No Advance Directives on File: No Advance Directives Date on File: 04/25/20 Meds Allergies Allergy/AdvReac Type Severity Reaction Status Date / Time aspirin [ASPIRIN] Allergy Intermediate HIVES Verified 08/06/21 12:59 Penicillins [PCN] Allergy Intermediate HIVES Verified 08/06/21 12:59 Home Medications Medication Instructions Recorded Confirmed Last Taken Type acarbose 25 mg tablet 25 mg PO TIDWMEAL 04/21/20 11/09/21 Unknown History atorvastatin 20 mg tablet 20 mg PO BEDTIME 04/21/20 11/09/21 Unknown History carbidopa 25 mg-levodopa 100 mg 1 tab PO TID 04/21/20 11/09/21 Unknown History tablet furosemide 20 mg tablet 20 mg PO DAILY 04/21/20 11/09/21 Unknown History gabapentin 300 mg capsule 300 mg PO TID 04/21/20 11/09/21 Unknown History glipizide 10 mg tablet 10 mg PO BIDAC 04/21/20 11/09/21 Unknown History levothyroxine 75 mcg tablet 75 mcg PO DAILY 04/21/20 11/09/21 Unknown History linagliptin 2.5 mg-metformin 1,000 1 tab PO BIDWM 04/21/20 11/09/21 Unknown History mg tablet (Jentadueto) lisinopril 2.5 mg tablet 2.5 mg PO DAILY 04/21/20 11/09/21 Unknown History montelukast 10 mg tablet 10 mg PO BEDTIME 04/21/20 11/09/21 Unknown History omeprazole 20 mg capsule,delayed 20 mg PO DAILY 04/21/20 11/09/21 Unknown History release albuterol sulfate 90 mcg/actuation 2 puff INHALATION Q4-6H PRN 11/09/21 11/09/21 Unknown History aerosol inhaler (Ventolin HFA) alendronate 70 mg tablet 1 tab PO SINCLAIR@0600 11/09/21 11/09/21 Unknown History calcium carbonate 500 mg-vitamin 1 tab QAM 11/09/21 11/09/21 Unknown History D3 10 mcg (400 unit) tablet (Oyster Shell Calcium-Vitamin D3) Physical Exam Vital Signs and Narrative: Vital Signs: Last Vital Signs Temp 101.5 F H 11/09/21 21:41 Pulse 109 H 11/09/21 21:41 Resp 24 H 11/09/21 21:41 BP 127/59 L 11/09/21 21:41 Pulse Ox 94 11/09/21 21:41 BMI result Body Mass Index 60.4 Const: General: cooperative and no acute distress Orientation/consciousness: patient oriented x3 Eyes: General: appearance normal, both eyes and all related structures Pupils: Equal, round and reactive pupils present Resp: Effort & Inspection: normal respiratory effort Auscultation: clear to auscultation bilaterally Cardio: Rate: regular rate Rhythm: regular rhythm GI: Palpation (GI): Soft to palpation Auscultation: normal bowel sounds Skin: General skin exam: no rashes or lesions noted Neuro: General: patient oriented x3 Cranial nerves: Yes Equal, round and reactive pupils present Cognition (Neuro): normal cognition Extrem: General: Yes normal to inspection and Yes no pedal edema Results Labs CBC and Chem 7: 11/10/21 06:29 11/09/21 18:33 Labs: Laboratory Results - last 24 hr 11/09/21 11/09/21 11/09/21 18:32 18:32 18:33 MCV 94.2 MCH 31.3 MCHC 33.2 RDW 14.1 Plt Count TNP MPV 10.5 Immature Gran % (Auto) 0.5 H Neut % (Auto) 69.1 Lymph % (Auto) 13.1 L [place] % (Auto) 16.9 H Eos % (Auto) 0.2 Baso % (Auto) 0.2 Lymph # (Auto) 0.6 L [place] # (Auto) 0.7 Eos # (Auto) 0.0 Baso # (Auto) 0.0 Abs Immat Gran (auto) 0.02 Absolute Neuts (auto) 2.9 Absolute Nucleated RBC 0.000 Nucleated RBC % (auto) 0.0 Smear Tech's Comments VERIFIED PT INR Anion Gap Estim Creat Clear Calc Estimated GFR Random Glucose Lactic Acid Lactic Acid F/U @ 2Hr Calcium Magnesium Cancelled Total Bilirubin Direct Bilirubin AST ALT Alkaline Phosphatase Troponin I High Sens B-Natriuretic Peptide Total Protein Albumin Lipase TSH 0.39 Urine Color Urine Appearance Urine pH Ur Specific [place] Urine Protein Urine Glucose (UA) Urine Ketones Urine Blood Urine Nitrite Ur Leukocyte Esterase Urine RBC Urine WBC Ur Squamous Epith Cells Uric Acid Crystals Urine Bacteria COVID-19 ([facility]) COVID-19 Clin Com Influenza Type A (ANDRA) Positive A Influenza Type B (ANDRA) Negative Influenza A & B Note See Note 11/09/21 11/09/21 11/09/21 18:33 18:33 18:33 MCV MCH MCHC RDW Plt Count MPV Immature Gran % (Auto) Neut % (Auto) Lymph % (Auto) [place] % (Auto) Eos % (Auto) Baso % (Auto) Lymph # (Auto) [place] # (Auto) Eos # (Auto) Baso # (Auto) Abs Immat Gran (auto) Absolute Neuts (auto) Absolute Nucleated RBC Nucleated RBC % (auto) Smear Tech's Comments PT 18.7 H INR 1.6 H Anion Gap 13 Estim Creat Clear Calc TNP Estimated GFR > 60 Random Glucose 90 Lactic Acid Lactic Acid F/U @ 2Hr Calcium 8.6 D Magnesium 1.5 L Total Bilirubin 2.4 H Direct Bilirubin 1.2 H AST 177 H ALT 44 H Alkaline Phosphatase 131 H Troponin I High Sens 8.4 B-Natriuretic Peptide 93 Total Protein 7.4 Albumin 2.5 L Lipase 182 H TSH Urine Color Urine Appearance Urine pH Ur Specific [place] Urine Protein Urine Glucose (UA) Urine Ketones Urine Blood Urine Nitrite Ur Leukocyte Esterase Urine RBC Urine WBC Ur Squamous Epith Cells Uric Acid Crystals Urine Bacteria COVID-19 ([facility]) COVID-19 Clin Com Influenza Type A (ANDRA) Influenza Type B (ANDRA) Influenza A & B Note 11/09/21 11/09/21 11/09/21 18:38 21:27 21:43 MCV MCH MCHC RDW Plt Count MPV Immature Gran % (Auto) Neut % (Auto) Lymph % (Auto) [place] % (Auto) Eos % (Auto) Baso % (Auto) Lymph # (Auto) [place] # (Auto) Eos # (Auto) Baso # (Auto) Abs Immat Gran (auto) Absolute Neuts (auto) Absolute Nucleated RBC Nucleated RBC % (auto) Smear Tech's Comments PT INR Anion Gap Estim Creat Clear Calc Estimated GFR Random Glucose Lactic Acid 4.7 H* Lactic Acid F/U @ 2Hr Calcium Magnesium Total Bilirubin Direct Bilirubin AST ALT Alkaline Phosphatase Troponin I High Sens B-Natriuretic Peptide Total Protein Albumin Lipase TSH Urine Color YELLOW Urine Appearance CLEAR Urine pH 5.5 Ur Specific [place] >= 1.030 H Urine Protein NEG Urine Glucose (UA) NEG Urine Ketones NEG Urine Blood 2+ H Urine Nitrite NEG Ur Leukocyte Esterase NEG Urine RBC 0-2 Urine WBC 0 Ur Squamous Epith Cells TRACE Uric Acid Crystals 1+ Urine Bacteria TRACE COVID-19 ([facility]) Negative COVID-19 Clin Com See Note Influenza Type A (ANDRA) Influenza Type B (ANDRA) Influenza A & B Note 11/09/21 22:17 MCV MCH MCHC RDW Plt Count MPV Immature Gran % (Auto) Neut % (Auto) Lymph % (Auto) [place] % (Auto) Eos % (Auto) Baso % (Auto) Lymph # (Auto) [place] # (Auto) Eos # (Auto) Baso # (Auto) Abs Immat Gran (auto) Absolute Neuts (auto) Absolute Nucleated RBC Nucleated RBC % (auto) Smear Tech's Comments PT INR Anion Gap Estim Creat Clear Calc Estimated GFR Random Glucose Lactic Acid Lactic Acid F/U @ 2Hr 3.3 H* Calcium Magnesium Total Bilirubin Direct Bilirubin AST ALT Alkaline Phosphatase Troponin I High Sens B-Natriuretic Peptide Total Protein Albumin Lipase TSH Urine Color Urine Appearance Urine pH Ur Specific [place] Urine Protein Urine Glucose (UA) Urine Ketones Urine Blood Urine Nitrite Ur Leukocyte Esterase Urine RBC Urine WBC Ur Squamous Epith Cells Uric Acid Crystals Urine Bacteria COVID-19 ([facility]) COVID-19 Clin Com Influenza Type A (ANDRA) Influenza Type B (ANDRA) Influenza A & B Note Imaging Radiologist's Impressions: Impressions Cervical Spine CT 11/09/21 19:32 IMPRESSION: No acute intracranial process seen. Mild degenerative C5-C6 disc disease with ventral spondylosis. No acute fracture or dislocation seen. Mild straightening of cervical lordosis likely spasm. There is no visible acute fracture, dislocation or bony abnormality involving the thoracic or lumbar spine. Head CT 11/09/21 19:32 IMPRESSION: No acute intracranial process seen. Mild degenerative C5-C6 disc disease with ventral spondylosis. No acute fracture or dislocation seen. Mild straightening of cervical lordosis likely spasm. There is no visible acute fracture, dislocation or bony abnormality involving the thoracic or lumbar spine. Lumbar Spine CT 11/09/21 19:35 IMPRESSION: No acute intracranial process seen. Mild degenerative C5-C6 disc disease with ventral spondylosis. No acute fracture or dislocation seen. Mild straightening of cervical lordosis likely spasm. There is no visible acute fracture, dislocation or bony abnormality involving the thoracic or lumbar spine. Thoracic Spine CT 11/09/21 19:35 IMPRESSION: No acute intracranial process seen. Mild degenerative C5-C6 disc disease with ventral spondylosis. No acute fracture or dislocation seen. Mild straightening of cervical lordosis likely spasm. There is no visible acute fracture, dislocation or bony abnormality involving the thoracic or lumbar spine. Assessment and Plan (1) Influenza A: Status: Acute (2) Lactic acidosis: Status: Acute (3) Sepsis: Status: Acute Plan Year old female with past medical history of diabetes, liver cirrhosis, hyperthyroidism, hypertension, Parkinson's disease who presents to the hospital with complaints of fall found to have influenza a # sepsis - secondary to influena A positive - has tachycardia, febrile, leukopenia - will treat with Tamiflu - no evidence pneumonia on chest x-ray- will hold off on treating with IV antibiotics # lactic acidosis - likely secondary to sepsis - treat with IV fluids - follow lactic acid # influenza A - patient reports that she was never vaccinated for the season - no evidence of pneumonia - Tamiflu # diabetes - low-dose sliding scale insulin - diabetic diet - hold oral antihyperglycemics # hypertension - stable - continue home medications # hypothyroidism - continue levothyroxine DVT prophylaxis: Lovenox Given patient's significant lactic acidosis, sepsis, she requires a medically necessary to light admission for further management and monitor Quality Stroke Does the patient have a stroke diagnosis?: No VTE Prior VTE?: No VTE Risk Level:: Medical - moderate - high VTE Device Contraindication: Treatment Not Indicated VTE Drug Contraindication: N/A - Med Ordered
[2021-11-10] VITALS (7 sets, daily range): BP systolic 108–150; BP diastolic 52–74; PULSE 92–104; RESP 18–22; TEMP 36.3–37.3; O2SAT 92–98; BMI 65.3
[2021-11-10] MEDS: Oseltamivir Phosphate 75 MG CAPSULE PO ×3 (00:05→22:15)
[2021-11-10] MEDS: Carbidopa/Levodopa 25/100 TABLET 1 TAB PO ×4 (00:05→22:15)
[2021-11-10] MEDS: Lactated Ringers 1,000 ML 100 ML IVCONT ×2 (00:13→13:43)
[2021-11-10 00:19] LABS: Reflex Lactate? 2 Y
[2021-11-10 00:53] LABS: ~Lactic Acid-LAB USE ONLY 3.3 mmol/L (0.5-2.0)
[2021-11-10] MEDS: Levothyroxine Sodium 75 MCG TABLET PO (06:30)
[2021-11-10] MEDS: Omeprazole 20 MG CAPSULE.DR PO (06:30)
[2021-11-10 06:43] LABS: MANUAL DIFF FLAG NO
[2021-11-10 06:46] LABS: Basophils Percent Auto 0.3 % (0-2); Hemoglobin 11.1 g/dl (12.0-16.0); Imm Gran Abs Auto 0.02 X10*3/uL (0.00-0.03); Imm Gran Pct Auto 0.5 % (0.0-0.4); Lymphocytes Absolute Auto 0.6 X10*3/uL (1.2-4.9); Lymphocytes Percent Auto 15.5 % (20-40); Mean Corpuscular HGB Conc 32.6 g/dl (31.0-35.0); Mean Corpuscular Hemoglobin 31.3 pg (27.0-33.0); Mean Corpuscular Volume 95.8 fL (80.0-98.0); Monocytes Absolute Auto 0.6 X10*3/uL (0.1-1.2); Monocytes Percent Auto 17.1 % (2-11); Neutrophils Absolute Auto 2.5 x10*3/uL (2.0-8.3); Neutrophils Percent Auto 66.6 % (45-73); Red Blood Count 3.55 X10*6/uL (4.20-5.50); Red Cell Distribution Width 14.1 % (11.0-16.0); White Blood Count 3.7 X10*3/uL (4.8-10.8)
[2021-11-10 07:30] LABS: Mean Platelet Volume 10.2 fL (9.4-12.3); Platelet Count 54 X10*3/uL (160-400)
[2021-11-10 07:49] LABS: Anion Gap 14 (12-20); Blood Urea Nitrogen 8 mg/dL (9-16); Calcium 7.9 mg/dL (8.4-10.2); Carbon Dioxide 18 mmol/L (22-29); Chloride 112 mmol/L (96-108); Creatinine Clr Calc Pharmacy 71.1; Estimated Glomerular Filt Rate > 60; Glucose Random 43 mg/dL (60-115); Potassium 4.1 mmol/L (3.3-5.1); Sodium 140 mmol/L (135-145)
[2021-11-10 08:03] LABS: Glucose, Whole Blood 40 mg/dL (60-115)
[2021-11-10 08:42] LABS: Glucose, Whole Blood 84 mg/dL (60-115)
[2021-11-10] MEDS: Furosemide 20 MG TABLET PO (09:04)
[2021-11-10] MEDS: Acetaminophen 325 MG TABLET 650 MG PO (09:04)
[2021-11-10] MEDS: Enoxaparin Sodium 40 MG/0.4 ML SYRINGE SUBCUT (09:05)
[2021-11-10] MEDS: Benzonatate 100 MG CAPSULE 200 MG PO (09:05)
[2021-11-10] MEDS: lisinopriL 2.5 MG TABLET PO (09:05)
[2021-11-10] MEDS: Gabapentin 300 MG CAPSULE PO ×3 (09:05→22:15)
[2021-11-10] MEDS: 0.9 % Sodium Chloride Flush 3 ML SYRINGE IVFLUSH (09:12)
--- NOTE | 2021-11-10 10:14 | MHC.CM.PN ---
IMM 11/10/21, PT ADMITTED W/INFLUENZA A AND SEPSIS, CM MET W/PT WHO REPORTS SHE LIVES W/HER DTR JUDY AND ERNESTINE AND THEY TAKE CARE OF HER, PT REPORTS SHE HAS A CANE AND NO OTHER DME, CM CONTACTED PT'S DTR W/PERMISSION TO CLARIFY MONTHLY NURSING VISITS AND DTR MARCIA REPORTS SHE & ARE PT'S [employer] [employer] AND A NURSE FROM THAT COMPANY VISITS PT MONTHLY, MARCIA UNSURE OF NAME OF COMPANY, MARCIA ALSO REPORTS SHE IS ON VACATION AND HER SISTER ANNMARIE FLOREZ WILL BE IN TO VISIT TODAY AND WILL BE STAYING W/PT AND TRANSPORTING HER HOME AND FAMILY WOULD LIKE VNA SERVICES IF RECOMMENDED, PT VERIFIES PCP IS NIKOS HARRIS AND HCP IS DTR MARCIA HUDSON [phone] IS PTS HCP, COPY REQUESTED. D/C PLAN: RETURN HOME W/ADULT F[facility]ER CARE AND ?NEW VNA, DTR ANNMARIE FOR TRANSPORT.
[2021-11-10 11:15] LABS: Glucose, Whole Blood 85 mg/dL (60-115)
--- NOTE | 2021-11-10 11:26 | P.PNIM_ITS ---
Subjective Subjective Date of Service: 11/10/21 Review of Systems Follow up flu Feeling ok, just having head pain appetite good Physical Exam Vital Signs: Vital Signs: Last Vital Signs Temp 97.5 F 11/10/21 08:00 Pulse 100 11/10/21 08:00 Resp 20 11/10/21 08:00 BP 150/74 H 11/10/21 08:00 Pulse Ox 94 11/10/21 08:00 BMI result Body Mass Index 65.3 Appearing in no acute distress lung sounds are clear to auscultation heart regular rate rhythm, clear S1, S2 positive bowel sounds, abdomen is soft, nontender neuro patient is alert x3, no focal deficits Objective Data Active Medications Acetaminophen (Acetaminophen 325 Mg Tablet) 650 mg PO Q6H PRN PRN Reason: Pain, Mild (Pain Scale 1-3) Last Admin: 11/10/21 09:04 Dose: 650 mg Documented by: CANDIDO Albuterol/Ipratropium (Albuterol/Iprat 2.5/0.5mg 3 Ml Ampul.Neb) 3 ml INHALE RQ4H PRN PRN Reason: Shortness of Breath/Wheezing Atorvastatin Calcium (Atorvastatin Calcium 20 Mg Tablet) 20 mg PO BEDTIME [facility] Benzonatate (Benzonatate 100 Mg Capsule) 200 mg PO TID PRN PRN Reason: cough Last Admin: 11/10/21 09:05 Dose: 200 mg Documented by: CANDIDO Carbidopa/Levodopa (Carbidopa/Levodopa 25/100 Tablet) 1 tab PO TID [facility] Last Admin: 11/10/21 09:04 Dose: 1 tab Documented by: CANDIDO Dextrose (Dextrose 50 % 25 Gm/50 Ml Syringe) 25 gm IVPUSH Q15M PRN; Protocol PRN Reason: per Hypoglycemia Standing Ord. Enoxaparin Sodium (Enoxaparin Sodium 40 Mg/0.4 Ml Syringe) 40 mg SUBCUT Q24H [facility] Last Admin: 11/10/21 09:05 Dose: 40 mg Documented by: CANDIDO Furosemide (Furosemide 20 Mg Tablet) 20 mg PO DAILY [facility]; Protocol Last Admin: 11/10/21 09:04 Dose: 20 mg Documented by: CANDIDO Gabapentin (Gabapentin 300 Mg Capsule) 300 mg PO TID [facility] Last Admin: 11/10/21 09:05 Dose: 300 mg Documented by: CANDIDO Glucose (Glucose Gel 15 Gm Gel..Gram.) 15 gm PO Q15M PRN; Protocol PRN Reason: per Hypoglycemia Standing Ord. Lactated Ringer's (Lr) 1,000 mls @ 100 mls/hr IVCONT .Q10H [facility] Last Admin: 11/10/21 00:13 Dose: 100 mls/hr Documented by: ARIEL Insulin Human Lispro (Insulin Lispro 100 Unit/Ml 3 Ml Vial) 0 unit SUBCUT QIDACHS [facility]; Protocol Last Admin: 11/10/21 08:37 Dose: Not Given Documented by: CANDIDO Non-Admin Reason: blood sugar low Levothyroxine Sodium (Levothyroxine Sodium 75 Mcg Tablet) 75 mcg PO DAILY@0630 [facility] Last Admin: 11/10/21 06:30 Dose: 75 mcg Documented by: BILLY Lisinopril (Lisinopril 2.5 Mg Tablet) 2.5 mg PO DAILY [facility]; Protocol Last Admin: 11/10/21 09:05 Dose: 2.5 mg Documented by: CANDIDO Montelukast Sodium (Montelukast Sodium 10 Mg Tablet) 10 mg PO BEDTIME [facility] Omeprazole (Omeprazole 20 Mg Capsule.Dr) 20 mg PO DAILY@0630 [facility] Last Admin: 11/10/21 06:30 Dose: 20 mg Documented by: BILLY Ondansetron HCl (Ondansetron Hcl 4 Mg/2 Ml Vial) 4 mg IVPUSH Q8H PRN PRN Reason: Nausea and Vomiting Oseltamivir Phosphate (Oseltamivir Phosphate 75 Mg Capsule) 75 mg PO Q12H [facility] Stop: 11/14/21 10:01 Last Admin: 11/10/21 09:04 Dose: 75 mg Documented by: CANDIDO Sodium Chloride (0.9 % Sodium Chloride Flush 3 Ml Syringe) 3 ml IVFLUSH [facility] Last Admin: 11/10/21 09:12 Dose: 3 ml Documented by: CANDIDO Labs CBC & Chem 7: 11/10/21 06:29 11/10/21 06:29 Labs: Laboratory Results - last 24 hr 11/09/21 11/09/21 11/09/21 18:32 18:32 18:33 MCV 94.2 MCH 31.3 MCHC 33.2 RDW 14.1 Plt Count TNP MPV 10.5 Immature Gran % (Auto) 0.5 H Neut % (Auto) 69.1 Lymph % (Auto) 13.1 L [place] % (Auto) 16.9 H Eos % (Auto) 0.2 Baso % (Auto) 0.2 Lymph # (Auto) 0.6 L [place] # (Auto) 0.7 Eos # (Auto) 0.0 Baso # (Auto) 0.0 Abs Immat Gran (auto) 0.02 Absolute Neuts (auto) 2.9 Absolute Nucleated RBC 0.000 Nucleated RBC % (auto) 0.0 Smear Tech's Comments VERIFIED PT INR Anion Gap Estim Creat Clear Calc Estimated GFR POC Glucose Random Glucose Lactic Acid Lactic Acid F/U @ 2Hr Lactic Acid F/U @ 4Hr Calcium Magnesium Cancelled Total Bilirubin Direct Bilirubin AST ALT Alkaline Phosphatase Troponin I High Sens B-Natriuretic Peptide Total Protein Albumin Lipase TSH 0.39 Urine Color Urine Appearance Urine pH Ur Specific [place] Urine Protein Urine Glucose (UA) Urine Ketones Urine Blood Urine Nitrite Ur Leukocyte Esterase Urine RBC Urine WBC Ur Squamous Epith Cells Uric Acid Crystals Urine Bacteria COVID-19 ([facility]) COVID-19 Clin Com Influenza Type A (ANDRA) Positive A Influenza Type B (ANDRA) Negative Influenza A & B Note See Note 11/09/21 11/09/21 11/09/21 18:33 18:33 18:33 MCV MCH MCHC RDW Plt Count MPV Immature Gran % (Auto) Neut % (Auto) Lymph % (Auto) [place] % (Auto) Eos % (Auto) Baso % (Auto) Lymph # (Auto) [place] # (Auto) Eos # (Auto) Baso # (Auto) Abs Immat Gran (auto) Absolute Neuts (auto) Absolute Nucleated RBC Nucleated RBC % (auto) Smear Tech's Comments PT 18.7 H INR 1.6 H Anion Gap 13 Estim Creat Clear Calc TNP Estimated GFR > 60 POC Glucose Random Glucose 90 Lactic Acid Lactic Acid F/U @ 2Hr Lactic Acid F/U @ 4Hr Calcium 8.6 D Magnesium 1.5 L Total Bilirubin 2.4 H Direct Bilirubin 1.2 H AST 177 H ALT 44 H Alkaline Phosphatase 131 H Troponin I High Sens 8.4 B-Natriuretic Peptide 93 Total Protein 7.4 Albumin 2.5 L Lipase 182 H TSH Urine Color Urine Appearance Urine pH Ur Specific [place] Urine Protein Urine Glucose (UA) Urine Ketones Urine Blood Urine Nitrite Ur Leukocyte Esterase Urine RBC Urine WBC Ur Squamous Epith Cells Uric Acid Crystals Urine Bacteria COVID-19 ([facility]) COVID-19 Clin Com Influenza Type A (ANDRA) Influenza Type B (ANDRA) Influenza A & B Note 11/09/21 11/09/21 11/09/21 18:38 21:27 21:43 MCV MCH MCHC RDW Plt Count MPV Immature Gran % (Auto) Neut % (Auto) Lymph % (Auto) [place] % (Auto) Eos % (Auto) Baso % (Auto) Lymph # (Auto) [place] # (Auto) Eos # (Auto) Baso # (Auto) Abs Immat Gran (auto) Absolute Neuts (auto) Absolute Nucleated RBC Nucleated RBC % (auto) Smear Tech's Comments PT INR Anion Gap Estim Creat Clear Calc Estimated GFR POC Glucose Random Glucose Lactic Acid 4.7 H* Lactic Acid F/U @ 2Hr Lactic Acid F/U @ 4Hr Calcium Magnesium Total Bilirubin Direct Bilirubin AST ALT Alkaline Phosphatase Troponin I High Sens B-Natriuretic Peptide Total Protein Albumin Lipase TSH Urine Color YELLOW Urine Appearance CLEAR Urine pH 5.5 Ur Specific [place] >= 1.030 H Urine Protein NEG Urine Glucose (UA) NEG Urine Ketones NEG Urine Blood 2+ H Urine Nitrite NEG Ur Leukocyte Esterase NEG Urine RBC 0-2 Urine WBC 0 Ur Squamous Epith Cells TRACE Uric Acid Crystals 1+ Urine Bacteria TRACE COVID-19 ([facility]) Negative COVID-19 Clin Com See Note Influenza Type A (ANDRA) Influenza Type B (ANDRA) Influenza A & B Note 11/09/21 11/10/21 11/10/21 22:17 00:31 06:29 MCV 95.8 MCH 31.3 MCHC 32.6 RDW 14.1 Plt Count 54 L D MPV 10.2 Immature Gran % (Auto) 0.5 H Neut % (Auto) 66.6 Lymph % (Auto) 15.5 L [place] % (Auto) 17.1 H Eos % (Auto) 0.0 Baso % (Auto) 0.3 Lymph # (Auto) 0.6 L [place] # (Auto) 0.6 Eos # (Auto) 0.0 Baso # (Auto) 0.0 Abs Immat Gran (auto) 0.02 Absolute Neuts (auto) 2.5 Absolute Nucleated RBC 0.000 Nucleated RBC % (auto) 0.0 Smear Tech's Comments PT INR Anion Gap Estim Creat Clear Calc Estimated GFR POC Glucose Random Glucose Lactic Acid Lactic Acid F/U @ 2Hr 3.3 H* Lactic Acid F/U @ 4Hr 3.3 H* Calcium Magnesium Total Bilirubin Direct Bilirubin AST ALT Alkaline Phosphatase Troponin I High Sens B-Natriuretic Peptide Total Protein Albumin Lipase TSH Urine Color Urine Appearance Urine pH Ur Specific [place] Urine Protein Urine Glucose (UA) Urine Ketones Urine Blood Urine Nitrite Ur Leukocyte Esterase Urine RBC Urine WBC Ur Squamous Epith Cells Uric Acid Crystals Urine Bacteria COVID-19 ([facility]) COVID-19 Clin Com Influenza Type A (ANDRA) Influenza Type B (ANDRA) Influenza A & B Note 11/10/21 11/10/21 11/10/21 06:29 07:58 08:38 MCV MCH MCHC RDW Plt Count MPV Immature Gran % (Auto) Neut % (Auto) Lymph % (Auto) [place] % (Auto) Eos % (Auto) Baso % (Auto) Lymph # (Auto) [place] # (Auto) Eos # (Auto) Baso # (Auto) Abs Immat Gran (auto) Absolute Neuts (auto) Absolute Nucleated RBC Nucleated RBC % (auto) Smear Tech's Comments PT INR Anion Gap 14 Estim Creat Clear Calc 71.1 Estimated GFR > 60 POC Glucose 40 L* 84 Random Glucose 43 L* Lactic Acid Lactic Acid F/U @ 2Hr Lactic Acid F/U @ 4Hr Calcium 7.9 L D Magnesium Total Bilirubin Direct Bilirubin AST ALT Alkaline Phosphatase Troponin I High Sens B-Natriuretic Peptide Total Protein Albumin Lipase TSH Urine Color Urine Appearance Urine pH Ur Specific [place] Urine Protein Urine Glucose (UA) Urine Ketones Urine Blood Urine Nitrite Ur Leukocyte Esterase Urine RBC Urine WBC Ur Squamous Epith Cells Uric Acid Crystals Urine Bacteria COVID-19 ([facility]) COVID-19 Clin Com Influenza Type A (ANDRA) Influenza Type B (ANDRA) Influenza A & B Note 11/10/21 11:11 MCV MCH MCHC RDW Plt Count MPV Immature Gran % (Auto) Neut % (Auto) Lymph % (Auto) [place] % (Auto) Eos % (Auto) Baso % (Auto) Lymph # (Auto) [place] # (Auto) Eos # (Auto) Baso # (Auto) Abs Immat Gran (auto) Absolute Neuts (auto) Absolute Nucleated RBC Nucleated RBC % (auto) Smear Tech's Comments PT INR Anion Gap Estim Creat Clear Calc Estimated GFR POC Glucose 85 Random Glucose Lactic Acid Lactic Acid F/U @ 2Hr Lactic Acid F/U @ 4Hr Calcium Magnesium Total Bilirubin Direct Bilirubin AST ALT Alkaline Phosphatase Troponin I High Sens B-Natriuretic Peptide Total Protein Albumin Lipase TSH Urine Color Urine Appearance Urine pH Ur Specific [place] Urine Protein Urine Glucose (UA) Urine Ketones Urine Blood Urine Nitrite Ur Leukocyte Esterase Urine RBC Urine WBC Ur Squamous Epith Cells Uric Acid Crystals Urine Bacteria COVID-19 ([facility]) COVID-19 Clin Com Influenza Type A (ANDRA) Influenza Type B (ANDRA) Influenza A & B Note Assessment and Plan (1) Influenza A: Status: Acute Plan 66 Year old female with past medical history of diabetes, liver cirrhosis, hyperthyroidism, hypertension, Parkinson's disease who presents to the hospital with complaints of fall found to have influenza a Sepsis secondary to influena A positive tachycardia, febrile, leukopenia, lactic acidosis No flu vaccine Tamiflu no evidence pneumonia on chest x-ray- will hold off on treating with IV antibiotics Fall with headache pain head CT neg for acute injury Pain management Diabetes SS, ADA diet Hypertension stable continue home medications Hypothyroidism continue levothyroxine DVT prophylaxis:? Lovenox Attending Dr. Ohara Patient requires continued hospitalization for further management and monitoring for thrombocytopenia and headache pain Quality Stroke Does the patient have a stroke diagnosis?: No VTE Prior VTE?: No VTE Risk Level:: Medical - moderate - high VTE Device Contraindication: Treatment Not Indicated VTE Drug Contraindication: N/A - Med Ordered
[2021-11-10 16:11] LABS: Glucose, Whole Blood 24 mg/dL (60-115)
[2021-11-10 16:11] LABS: Glucose, Whole Blood 23 mg/dL (60-115)
[2021-11-10 16:29] LABS: Glucose, Whole Blood 74 mg/dL (60-115)
[2021-11-10] MEDS: Dextrose 5 % and 0.9 % NaCl 1,000 ML 80 ML IVCONT (17:45)
[2021-11-10 20:52] LABS: Glucose, Whole Blood 252 mg/dL (60-115)
[2021-11-10] MEDS: Atorvastatin Calcium 20 MG TABLET PO (22:15)
[2021-11-10] MEDS: Montelukast Sodium 10 MG TABLET PO (22:15)
[2021-11-10] MEDS: Insulin Lispro 100 UNIT/ML 3 ML VIAL SUBCUT (22:15)
[2021-11-10 23:59] LABS: Glucose, Whole Blood 209 mg/dL (60-115)
[2021-11-11] VITALS (10 sets, daily range): BP systolic 119–136; BP diastolic 53–77; PULSE 74–93; RESP 18–20; TEMP 36.8–37.1; O2SAT 94–99
[2021-11-11] MEDS: Acetaminophen 325 MG TABLET 650 MG PO (01:26)
[2021-11-11] MEDS: Albuterol/Iprat 2.5/0.5MG 3 ML AMPUL.NEB INHALE ×4 (01:41→19:08)
[2021-11-11 04:22] LABS: Glucose, Whole Blood 105 mg/dL (60-115)
[2021-11-11] MEDS: Omeprazole 20 MG CAPSULE.DR PO (06:00)
[2021-11-11] MEDS: Levothyroxine Sodium 75 MCG TABLET PO (06:00)
[2021-11-11] MEDS: Dextrose 5 % and 0.9 % NaCl 1,000 ML 80 ML IVCONT (06:03)
[2021-11-11 06:55] LABS: Hematocrit 30.1 % (37.0-47.0); Mean Corpuscular HGB Conc 33.2 g/dl (31.0-35.0); Mean Corpuscular Hemoglobin 31.2 pg (27.0-33.0); Mean Corpuscular Volume 93.8 fL (80.0-98.0); Mean Platelet Volume 10.6 fL (9.4-12.3); Red Blood Count 3.21 X10*6/uL (4.20-5.50); Red Cell Distribution Width 14.3 % (11.0-16.0)
[2021-11-11 07:05] LABS: White Blood Count 2.4 X10*3/uL (4.8-10.8)
[2021-11-11 07:25] LABS: Platelet Count 59 X10*3/uL (160-400)
[2021-11-11 07:26] LABS: Glucose, Whole Blood 100 mg/dL (60-115)
[2021-11-11 07:36] LABS: Anion Gap 10 (12-20); Blood Urea Nitrogen 7 mg/dL (9-16); Calcium 7.5 mg/dL (8.4-10.2); Carbon Dioxide 23 mmol/L (22-29); Chloride 112 mmol/L (96-108); Creatinine Clr Calc Pharmacy 72.4; Estimated Glomerular Filt Rate > 60; Glucose Random 93 mg/dL (60-115); Potassium 3.4 mmol/L (3.3-5.1); Sodium 140 mmol/L (135-145)
[2021-11-11] MEDS: 0.9 % Sodium Chloride Flush 3 ML SYRINGE IVFLUSH ×2 (09:21→16:28)
[2021-11-11] MEDS: Furosemide 20 MG TABLET PO (09:21)
[2021-11-11] MEDS: lisinopriL 2.5 MG TABLET PO (09:21)
[2021-11-11] MEDS: Gabapentin 300 MG CAPSULE PO ×3 (09:21→20:56)
[2021-11-11] MEDS: Carbidopa/Levodopa 25/100 TABLET 1 TAB PO ×3 (09:21→20:56)
[2021-11-11] MEDS: Oseltamivir Phosphate 75 MG CAPSULE PO ×2 (09:21→20:56)
[2021-11-11] MEDS: Enoxaparin Sodium 40 MG/0.4 ML SYRINGE SUBCUT (09:22)
--- NOTE | 2021-11-11 09:47 | MHC.CM.PN ---
Addendum entered by Stephanie Mustafa RN 11/11/21 14:11: CM CONTACTED PT'S DTR MARCIA TO VERIFY ADDRESS AND TO FIND OUT IF PT'S DTR WHO IS STAYING W/PT WHILE MARCIA IS ON VACATION IS OKAY TO BE AWAY FROM [place] THAT LONG D/T PT'S CONCERN SHE WILL LOSE HER BED AT [address], MARCIA CONFIRMED HER OLDEST SISTER SYLVAIN HAS PERMISSION TO BE AWAY FROM [address] [id number] AND IS NOT A CONCERN AND MARCIA WILL RETURN ON11/17/ Original Note: EMR REVIEWED, CASED DISCUSSED W/HOSPITALIST, PT WILL REMAIN IN PT ONE MORE NIGHT AND ANTIC D/C HOME W/NEW VNA TOMORROW 11/12, CM WILL CONTACT FAMILY TO NOTIFY OF ANTIC D/C AND ARRANGE TRANSPORT, PT EVAL TO BE DONE PRIOR TO D/C, CM WILL CONT TO FOLLOW D/C NEEDS.
[2021-11-11 11:15] LABS: Glucose, Whole Blood 156 mg/dL (60-115)
--- NOTE | 2021-11-11 11:53 | P.PNIM_ITS ---
Subjective Subjective Date of Service: 11/11/21 Interval History: the patient was seen and evaluated this morning Laying in bed, feels Some improvement but still reporting dyspnea with exertion and headache had an episode of hypoglycemia yesterday morning, still on D5 water No reported other overnight events. Systemic review: No fever, chills reporting headache and generalized weakness No chest pain, palpitation dyspnea on exertion, episodes of cough No abdominal pain, nausea or vomiting No urinary symptoms No any rash or wounds Physical Exam Vital Signs: Vital Signs: Last Vital Signs Temp 98.6 F 11/11/21 11:09 Pulse 91 11/11/21 11:09 Resp 20 11/11/21 11:09 BP 132/69 11/11/21 11:09 Pulse Ox 97 11/11/21 11:09 BMI result Body Mass Index 65.3 Const: Other: Constitutional : Alert, oriented, not in respiratory distress Neck : Normal inspection, Supple, right ear pain Cardiovascular : RRR, no JVP, no lower extremity edema Respiratory : fair bilateral air entry, no crackles, scattered bilateral wheezes or rhonchi Gastrointestinal: soft, lax, Normal bowel sounds, Non tender Skin : Warm, Dry Neurological : Alert & oriented x3, No focal deficit , CN 2-12 within normal Objective Data Active Medications Acetaminophen (Acetaminophen 325 Mg Tablet) 650 mg PO Q6H PRN PRN Reason: Pain, Mild (Pain Scale 1-3) Last Admin: 11/11/21 01:26 Dose: 650 mg Documented by: FELIZ Albuterol/Ipratropium (Albuterol/Iprat 2.5/0.5mg 3 Ml Ampul.Neb) 3 ml INHALE RQ4H PRN PRN Reason: Shortness of Breath/Wheezing Last Admin: 11/11/21 06:11 Dose: 3 ml Documented by: DEEPTI Atorvastatin Calcium (Atorvastatin Calcium 20 Mg Tablet) 20 mg PO BEDTIME [facility] Last Admin: 11/10/21 22:15 Dose: 20 mg Documented by: FELIZ Benzonatate (Benzonatate 100 Mg Capsule) 200 mg PO TID PRN PRN Reason: cough Last Admin: 11/10/21 09:05 Dose: 200 mg Documented by: CANDIDO Carbidopa/Levodopa (Carbidopa/Levodopa 25/100 Tablet) 1 tab PO TID [facility] Last Admin: 11/11/21 09:21 Dose: 1 tab Documented by: LINDA Dextrose (Dextrose 50 % 25 Gm/50 Ml Syringe) 25 gm IVPUSH Q15M PRN; Protocol PRN Reason: per Hypoglycemia Standing Ord. Enoxaparin Sodium (Enoxaparin Sodium 40 Mg/0.4 Ml Syringe) 40 mg SUBCUT Q24H [facility] Last Admin: 11/11/21 09:22 Dose: 40 mg Documented by: LINDA Furosemide (Furosemide 20 Mg Tablet) 20 mg PO DAILY [facility]; Protocol Last Admin: 11/11/21 09:21 Dose: 20 mg Documented by: LINDA Gabapentin (Gabapentin 300 Mg Capsule) 300 mg PO TID [facility] Last Admin: 11/11/21 09:21 Dose: 300 mg Documented by: LINDA Glucose (Glucose Gel 15 Gm Gel..Gram.) 15 gm PO Q15M PRN; Protocol PRN Reason: per Hypoglycemia Standing Ord. Insulin Human Lispro (Insulin Lispro 100 Unit/Ml 3 Ml Vial) 0 unit SUBCUT QIDACHS [facility]; Protocol Last Admin: 11/11/21 09:22 Dose: Not Given Documented by: LINDA Non-Admin Reason: No Insulin Coverage Levothyroxine Sodium (Levothyroxine Sodium 75 Mcg Tablet) 75 mcg PO DAILY@0630 [facility] Last Admin: 11/11/21 06:00 Dose: 75 mcg Documented by: FELIZ Lisinopril (Lisinopril 2.5 Mg Tablet) 2.5 mg PO DAILY [facility]; Protocol Last Admin: 11/11/21 09:21 Dose: 2.5 mg Documented by: LINDA Montelukast Sodium (Montelukast Sodium 10 Mg Tablet) 10 mg PO BEDTIME [facility] Last Admin: 11/10/21 22:15 Dose: 10 mg Documented by: FELIZ Omeprazole (Omeprazole 20 Mg Capsule.) 20 mg PO DAILY@0630 [facility] Last Admin: 11/11/21 06:00 Dose: 20 mg Documented by: FELIZ Ondansetron HCl (Ondansetron Hcl 4 Mg/2 Ml Vial) 4 mg IVPUSH Q8H PRN PRN Reason: Nausea and Vomiting Oseltamivir Phosphate (Oseltamivir Phosphate 75 Mg Capsule) 75 mg PO Q12H [facility] Stop: 11/14/21 10:01 Last Admin: 11/11/21 09:21 Dose: 75 mg Documented by: LINDA Sodium Chloride (0.9 % Sodium Chloride Flush 3 Ml Syringe) 3 ml IVFLUSH QSHIFT [facility] Last Admin: 11/11/21 09:21 Dose: 3 ml Documented by: LINDA Labs CBC & Chem 7: 11/11/21 06:23 11/11/21 06:23 Labs: Laboratory Results - last 24 hr 11/10/21 11/10/21 11/10/21 15:57 15:59 16:26 MCV MCH MCHC RDW Plt Count MPV Absolute Nucleated RBC Nucleated RBC % (auto) Smear Path Review Anion Gap Estim Creat Clear Calc Estimated GFR POC Glucose 24 L* 23 L* 74 Random Glucose Calcium 11/10/21 11/10/21 11/11/21 20:49 23:55 04:16 MCV MCH MCHC RDW Plt Count MPV Absolute Nucleated RBC Nucleated RBC % (auto) Smear Path Review Anion Gap Estim Creat Clear Calc Estimated GFR POC Glucose 252 H 209 H 105 Random Glucose Calcium 11/11/21 11/11/21 11/11/21 06:23 06:23 07:18 MCV 93.8 MCH 31.2 MCHC 33.2 RDW 14.3 Plt Count 59 L MPV 10.6 Absolute Nucleated RBC 0.000 Nucleated RBC % (auto) 0.0 Smear Path Review SEE NOTE Anion Gap 10 L Estim Creat Clear Calc 72.4 Estimated GFR > 60 POC Glucose 100 Random Glucose 93 Calcium 7.5 L 11/11/21 11:08 MCV MCH MCHC RDW Plt Count MPV Absolute Nucleated RBC Nucleated RBC % (auto) Smear Path Review Anion Gap Estim Creat Clear Calc Estimated GFR POC Glucose 156 H Random Glucose Calcium Microbiology Microbiology Results: Microbiology 11/09/21 20:10 Blood Culture - Preliminary Blood - Venous No growth after 24 hours. 11/09/21 18:38 Blood Culture - Preliminary Blood - Venous No growth after 24 hours. Assessment and Plan (1) Influenza A: Status: Acute (2) Fall: Status: Acute (3) Hypoglycemia associated with type 2 diabetes mellitus: Status: Acute (4) Thrombocytopenia: Status: Acute Plan 66 Year old female with past medical history of diabetes, liver cirrhosis, hyperthyroidism, hypertension, Parkinson's disease who presents to the hospital with complaints of fall found to have influenza a Sepsis, resolved secondary to influena A positive No flu vaccine Tamiflu 3 no evidence pneumonia on chest x-ray- will hold off on treating with IV antibiotics hypoglycemia in diabetes type 2 Likely related to oral antihyperglycemic agent Hold oral medications Hold D5W for now Monitor blood sugar today with diet Rescue dextrose 50 as needed Thrombocytopenia Worse than baseline likely related to viral illness Fall with headache pain head CT neg for acute injury Pain management To do physical therapy Diabetes SS, ADA diet Hypertension stable continue home medications Hypothyroidism continue levothyroxine DVT prophylaxis:? Lovenox Attending Dr. Ohara Patient requires continued hospitalization for further management and monitoring for hypoglycemia event,thrombocytopenia and headache pain given high chills of decompensation. Quality Stroke Does the patient have a stroke diagnosis?: No VTE Prior VTE?: No VTE Risk Level:: Medical - moderate - high VTE Device Contraindication: Treatment Not Indicated VTE Drug Contraindication: N/A - Med Ordered
[2021-11-11 16:01] LABS: Glucose, Whole Blood 125 mg/dL (60-115)
[2021-11-11 19:51] LABS: Glucose, Whole Blood 148 mg/dL (60-115)
[2021-11-11] MEDS: Atorvastatin Calcium 20 MG TABLET PO (20:56)
[2021-11-11] MEDS: Montelukast Sodium 10 MG TABLET PO (20:56)
[2021-11-12] MEDS: 0.9 % Sodium Chloride Flush 3 ML SYRINGE IVFLUSH ×2 (00:17→08:16)
[2021-11-12 03:21] VITALS: BP 138/66; PULSE 100; RESP 19; TEMP 36.4; O2SAT 97
[2021-11-12] MEDS: Levothyroxine Sodium 75 MCG TABLET PO (05:31)
[2021-11-12] MEDS: Omeprazole 20 MG CAPSULE.DR PO (05:31)
[2021-11-12 06:48] LABS: Hematocrit 31.2 % (37.0-47.0); Hemoglobin 10.3 g/dl (12.0-16.0); Mean Corpuscular Hemoglobin 30.8 pg (27.0-33.0); Mean Corpuscular Volume 93.4 fL (80.0-98.0); Red Blood Count 3.34 X10*6/uL (4.20-5.50); Red Cell Distribution Width 14.5 % (11.0-16.0); White Blood Count 2.7 X10*3/uL (4.8-10.8)
[2021-11-12 07:00] LABS: Platelet Count 59 X10*3/uL (160-400)
[2021-11-12 07:13] VITALS: BP 138/70; PULSE 84; RESP 20; TEMP 37; O2SAT 96
[2021-11-12 07:25] LABS: Glucose, Whole Blood 84 mg/dL (60-115)
[2021-11-12 07:33] LABS: Anion Gap 9 (12-20); Blood Urea Nitrogen 8 mg/dL (9-16); Calcium 7.6 mg/dL (8.4-10.2); Carbon Dioxide 26 mmol/L (22-29); Chloride 111 mmol/L (96-108); Creatinine Clr Calc Pharmacy 76.2; Estimated Glomerular Filt Rate > 60; Glucose Random 95 mg/dL (60-115); Potassium 3.6 mmol/L (3.3-5.1); Sodium 142 mmol/L (135-145)
[2021-11-12 07:46] VITALS: PULSE 86; RESP 18; O2SAT 97
[2021-11-12] MEDS: Albuterol/Iprat 2.5/0.5MG 3 ML AMPUL.NEB INHALE (07:46)
[2021-11-12] MEDS: lisinopriL 2.5 MG TABLET PO (08:15)
[2021-11-12] MEDS: Gabapentin 300 MG CAPSULE PO (08:15)
[2021-11-12] MEDS: Enoxaparin Sodium 40 MG/0.4 ML SYRINGE SUBCUT (08:16)
[2021-11-12] MEDS: Furosemide 20 MG TABLET PO (08:16)
[2021-11-12] MEDS: Carbidopa/Levodopa 25/100 TABLET 1 TAB PO (08:16)
[2021-11-12] MEDS: Oseltamivir Phosphate 75 MG CAPSULE PO (08:16)
--- NOTE | 2021-11-12 10:15 | MHC.CM.PN ---
PT MEDICALLY CLEARED FOR D/C HOME W/NEW [facility] FOR SN/HOME PT, FAMILY FOR TRANSPORT.
--- NOTE | 2021-11-12 10:53 | PM.DS ---
DS: Providers Provider Date of Service: 11/12/21 Date of admission: 11/09/21 23:27 Primary care physician: Everett Ng MD DS: Diagnosis Discharge Diagnosis (1) Influenza A: Status: Acute (2) Fall: Status: Acute (3) Hypoglycemia associated with type 2 diabetes mellitus: Status: Acute (4) Thrombocytopenia: Status: Acute (5) Leukopenia: Status: Acute (6) Lactic acidosis: Status: Acute (7) Viral sepsis: Status: Acute DS: Summary Hospital Course Hospital Course: Admission note HPI ?this is a 66-year-old female with past medical history of diabetes, history of psoriasis, have tried it, hypothyroidism, hypertension, Parkinson's disease, who presents to the hospital after a fall. patient reports that she got out of bed, felt very dizzy, and fell on the side of her head.? Patient reports that she has not been feeling well for the past 3-4 days.? She has been having severe cough, increased shortness of breath, and generally weak.? She has also has had significant fatigue and low oral intake. ? Patient reports fever, generalized body aches, headache.? Patient denies any chest pain, no abdominal pain nausea or vomiting, no diarrhea constipation, no urinary symptoms. On arrival to the ED patient's vitals are significant for a temperature of 103.3 degrees, heart rate 106, satting 98% on room air ?labs are significant for WBC count of 3.7,? hemoglobin of 11.1, hematocrit of 34, lactic acid of 4.7, magnesium 1.5, in waited of, influenza A positive, chest x-ray negative hospital course The patient was treated for influenza a infection with Tamiflu with good response as she was weaned off the oxygen. Evaluated were hypoglycemia and believed to be secondary to oral antihyperglycemic agents which were on hold with good response after holding the D5W as the patient glucose readings remain elevated with no recurrence of hypoglycemic events. Noted to have leukopenia and worsen baseline thrombocytopenia which both believed to be secondary to viral infection. CBC will be repeated next week. She was complaining of headache after the hold mainly on the right side. Images were negative for any acute fracture. Patient was able to tolerate diet . Advised to use Tylenol or Motrin as needed for pain. Continue Tamiflu as prescribed To follow-up with your primary regarding your diabetes medications use Tylenol or Motrin for the headache as no fractures were noted on the head CT scan. To repeat blood work to check on your white blood cells and platelet levels. Time Spent with Patient Time attestation: Total time spent providing and/or coordinating discharge services: Discharge coordination time: Greater than 30 minutes Quality: Safe Use of Opioids Does Pt have an Active Cancer Diagnosis on the Problem List?: No Quality: Stroke Does the patient have a stroke diagnosis?: No Physical Exam Vital Signs: Vital Signs: Last Vital Signs Temp 98.6 F 11/12/21 07:13 Pulse 86 11/12/21 07:46 Resp 18 11/12/21 07:46 BP 138/70 11/12/21 07:13 Pulse Ox 96 11/12/21 07:13 BMI result Body Mass Index 65.3 Const: Other: Constitutional : Alert, oriented, not in respiratory distress Neck : Normal inspection, Supple, right ear pain Cardiovascular : RRR, no JVP, no lower extremity edema Respiratory : fair bilateral air entry, no crackles, scattered bilateral wheezes or rhonchi Gastrointestinal: soft, lax, Normal bowel sounds, Non tender Skin : Warm, Dry Neurological : Alert & oriented x3, No focal deficit , CN 2-12 within normal DS: Data Data Completed and Pending Labs on day of discharge: Laboratory Results - last 24 hr 11/11/21 11/11/21 11/11/21 11:08 15:57 19:46 WBC RBC Hgb Hct MCV MCH MCHC RDW Plt Count MPV Absolute Nucleated RBC Nucleated RBC % (auto) Sodium Potassium Chloride Carbon Dioxide Anion Gap BUN Creatinine Estim Creat Clear Calc Estimated GFR POC Glucose 156 H 125 H 148 H Random Glucose Calcium 11/12/21 11/12/21 11/12/21 06:24 06:24 07:12 WBC 2.7 L RBC 3.34 L Hgb 10.3 L Hct 31.2 L MCV 93.4 MCH 30.8 MCHC 33.0 RDW 14.5 Plt Count 59 L MPV 11.0 Absolute Nucleated RBC 0.000 Nucleated RBC % (auto) 0.0 Sodium 142 Potassium 3.6 Chloride 111 H Carbon Dioxide 26 Anion Gap 9 L BUN 8 L Creatinine 0.56 Estim Creat Clear Calc 76.2 Estimated GFR > 60 POC Glucose 84 Random Glucose 95 Calcium 7.6 L Preliminary micro results at discharge 11/09/21 20:10 Blood Culture - Preliminary Blood - Venous No growth after 48 hours. 11/09/21 18:38 Blood Culture - Preliminary Blood - Venous No growth after 48 hours. Discharge Plan Discharge Patient Disposition: Home, Self-Care Discharge Diagnosis: influenza A Fall Hypoglycemia Referrals: [facility] [Other] - 3-5 Days (INTERMEDIATE AND HOME PHYSICAL THERAPY START OF CARE WILL BE TUESDAY 11/14, PLEASE CALL [phone] IF YOU HAVE NOT HEARD FROM A NURSE BY NOON 11/13/21. ) Everett Henning MD [Primary Care Provider] - 1 Week Discharge Medications: New benzonatate 100 mg Capsule 200 mg PO TID Qty: 30 0RF oseltamivir [Tamiflu] 75 mg Capsule 75 mg PO Q12H Qty: 4 0RF Continued atorvastatin 20 mg tablet 20 mg PO BEDTIME 0RF glipizide 10 mg tablet 10 mg PO BIDAC 0RF levothyroxine 75 mcg tablet 75 mcg PO DAILY 0RF gabapentin 300 mg capsule 300 mg PO TID 0RF omeprazole 20 mg capsule,delayed release(DR/EC) 20 mg PO DAILY 0RF montelukast 10 mg tablet 10 mg PO BEDTIME 0RF furosemide 20 mg tablet 20 mg PO DAILY 0RF carbidopa-levodopa 25-100 mg tablet 1 tab PO TID 0RF lisinopril 2.5 mg tablet 2.5 mg PO DAILY 0RF acarbose 25 mg tablet 25 mg PO TIDWMEAL 0RF Jentadueto 2.5-1,000 mg tablet 1 tab PO BIDWM 0RF alendronate 70 mg tablet 1 tab PO SINCLAIR@0600 0RF albuterol sulfate [Ventolin HFA] 90 mcg/actuation HFA aerosol inhaler 2 puff inhalation Q4-6H PRN (Reason: Shortness Of Breath) 0RF calcium carbonate-vitamin D3 [Oyster Shell Calcium-Vit D3] 500 mg-10 mcg (400 unit) tablet 1 tab QAM 0RF Discharge Orders: Discharge Order (Routine); Ordered 11/12/21 Ordered By: Andrew Sol Diet: advance to usual diet Activity on Discharge: As tolerated Stand Alone Forms: Patient Portal Discharge page Other Ambulatory Orders: Complete Blood Count no Diff (Routine) Timeframe: 1 Week Facility: [facility] - Location: Laboratory Ordered By: Andrew Sol Care Plan Goals: Read below Health Concerns: Read below Plan of Treatment: Read below Assessment: you were admitted to the hospital for treatment of influenza a and evidence of low sugar. Responded well to Tamiflu. You need to finish 2 more days of the medication. To use cough medication. Your blood sugar improved With no recurrence of low sugar levels. Continue Tamiflu as prescribed To follow-up with your primary regarding your diabetes medications use Tylenol or Motrin for the headache as no fractures were noted on the head CT scan. To repeat blood work to check on your white blood cells and platelet levels.
--- NOTE | 2021-11-12 10:56 | P.F2F_ITS ---
Service Date Service Date: 11/12/21 Encounter Date of encounter: 11/12/21 Reasons for Services Signs and symptoms assessed: physical deconditioning Reason for physical therapy: home safety and mobility and therapeutic exercises Homebound: Leaving the home is medically contraindicated at this time without the asist of a device and/or another person due th the listed conditions above and below. Reason homebound: unsteady gait / fall risk Certification: Based on the above findings, I certify that this patient is confined to the home and needs intermittent penitentiary care, physical therapy and/or speech therapy, or continues to need occupational therapy. The patient is under my care, and I have initiated the establishment of the plan of care. The patient will be followed by a physician who will periodically review the plan of care.
== END 2021-11-12 11:33 | disposition home or self-care (01) | DRG 872 ==
LOC: HO.ED 22:58 → HO.EDOVER 23:38 → HO.IMC 11-10 01:01
PROVIDERS: Nurse Practitioner Acute Care; Nurse Practitioner Family; Admitting Provider Internal Medicine; Emergency Provider Student in an Organized Health Care Education/Training Program; PCP Internal Medicine; Visit Provider Student in an Organized Health Care Education/Training Program
DX: A41.89 Other specified sepsis (principal); E87.2 Acidosis; J10.89 Influenza due to other identified influenza virus with other manifestations; E03.9 Hypothyroidism, unspecified; G20 Parkinson's disease; I10 Essential (primary) hypertension; L40.9 Psoriasis, unspecified; E11.649 Type 2 diabetes mellitus with hypoglycemia without coma; D69.6 Thrombocytopenia, unspecified; B97.89 Other viral agents as the cause of diseases classified elsewhere; R51.9 Headache, unspecified; D72.819 Decreased white blood cell count, unspecified; Z20.822 Contact with and (suspected) exposure to COVID-19; Z86.19 Personal history of other infectious and parasitic diseases; Z87.442 Personal history of urinary calculi; Z91.81 History of falling; Z88.0 Allergy status to penicillin; Z88.5 Allergy status to narcotic agent; Z79.890 Hormone replacement therapy; Z79.899 Other long term (current) drug therapy
CPT/HCPCS: 36415; 70450; 71045; 72125; 72128; 72131; 80048; 80076; 81001; 82947; 83605; 83690; 83735; 83880; 84443; 84484; 85025; 85027; 85610; 87040; 87502; 87635; 93005; 94640; 96365; 96366; 96375; 97162; 99285; J0696; J1650; J3475

== ENCOUNTER 2021-11-18 07:41 | Outpatient (REF) | payer MEDICARE, MEDICAID, SELFPAY ==
[2021-11-18 08:37] LABS: Hematocrit 32.7 % (37.0-47.0); Hemoglobin 10.7 g/dl (12.0-16.0); Mean Corpuscular HGB Conc 32.7 g/dl (31.0-35.0); Mean Corpuscular Hemoglobin 31.1 pg (27.0-33.0); Mean Corpuscular Volume 95.1 fL (80.0-98.0); Mean Platelet Volume 10.4 fL (9.4-12.3); Red Blood Count 3.44 X10*6/uL (4.20-5.50); Red Cell Distribution Width 14.4 % (11.0-16.0); White Blood Count 3.2 X10*3/uL (4.8-10.8)
[2021-11-18 08:39] LABS: Platelet Count 85 X10*3/uL (160-400)
== END 2021-11-18 07:42 | disposition home or self-care (01) ==
LOC: HO.LAB 07:41
PROVIDERS: Absent Provider Internal Medicine; PCP Internal Medicine; Visit Provider Student in an Organized Health Care Education/Training Program
DX: D72.819 Decreased white blood cell count, unspecified (principal); D69.6 Thrombocytopenia, unspecified
CPT/HCPCS: 36415; 85027

== ENCOUNTER 2022-01-08 16:00 | Outpatient (REF) | payer MEDICARE, MEDICAID, SELFPAY ==
--- NOTE | ~2022-01-08 | MR_ITS ---
EXAMINATION: MR ABDOMEN WITHOUT AND WITH CONTRAST CLINICAL INFORMATION: Follow-up liver lesions COMPARISON: Previous abdominal ultrasound April 2021, MRI of the abdomen July [address] of the liver August 2021 TECHNIQUE: MR abdomen was performed without and with use of 9 mL intravenous Gadavist gadolinium contrast. Postcontrast images are performed in multiphase dynamic sequences. Imaging was performed in 3 planes. FINDINGS: LUNG BASES: The visualized lung bases are unremarkable. LIVER, GALLBLADDER, AND BILIARY TREE: The liver is cirrhotic appearing. The liver is normal in signal. No focal liver lesion is seen. The gallbladder has been removed. There is no intra or extrahepatic biliary duct dilatation. No ascites. PANCREAS: Unremarkable. SPLEEN: Normal. ADRENAL GLANDS: Normal. KIDNEYS AND URETERS: There is a small right renal cyst. The kidneys are normal in size, shape, and enhance symmetrically. No hydronephrosis. No perinephric stranding. GASTROINTESTINAL TRACT: No bowel obstruction. No ascites or fluid collection. ABDOMINAL WALL: No significant hernia is appreciated. LYMPH NODES: No lymphadenopathy. VASCULAR: There are paraesophageal and gastric varices. The hepatic veins and portal veins are patent. OSSEOUS STRUCTURES: Marrow signal normal. MR/MR abdomen wo/w con IMPRESSION: Cirrhotic-appearing liver. No liver lesion seen. Varices. Small right renal cyst.
== END 2022-01-08 16:01 | disposition home or self-care (01) ==
LOC: HO.MRI 16:00
PROVIDERS: Visit Provider Internal Medicine Medical Oncology
DX: R93.2 Abnormal findings on diagnostic imaging of liver and biliary tract (principal)
CPT/HCPCS: 74183; A9585

== ENCOUNTER 2022-02-15 12:22 | Outpatient (REF) | payer MEDICARE, MEDICAID, SELFPAY ==
--- NOTE | ~2022-02-15 | MM_ITS ---
EXAMINATION: MM SCREENING DIGITAL BREAST TOMOSYNTHESIS, BILATERAL CLINICAL INFORMATION: Screening. Asymptomatic. The lifetime risk of breast cancer based on the Tyrer-Cuzick Model is 3%. COMPARISON: Mammography: 02/11/2021 (new baseline). TECHNIQUE: Digital breast tomosynthesis is performed in both the craniocaudal and mediolateral oblique views along with computer-aided detection (CAD). Synthesized 2D images are generated from the tomosynthesis. FINDINGS: There are scattered areas of fibroglandular density (ACR BI-RADS breast composition Category b). There are innumerable scattered bilateral ductal secretory, round, and some vascular calcifications similar to prior new baseline exam. Background fibroglandular and stromal densities are stable. There is no interval mass or architectural abnormality or abnormal calcifications. The axilla and skin contours are unremarkable. No significant changes. MM/MM tomosynthesis screening BI IMPRESSION: No mammographic evidence of malignancy. ASSESSMENT: BI-RADS 2: Benign RECOMMENDATION: Routine annual mammography screening. This patient's information was entered into a reminder system with a target due date for their next mammogram.
== END 2022-02-15 12:23 | disposition home or self-care (01) ==
LOC: HO.MAMMO 12:22
PROVIDERS: PCP Internal Medicine; Visit Provider Internal Medicine
DX: Z12.31 Encounter for screening mammogram for malignant neoplasm of breast (principal)
CPT/HCPCS: 77063; 77067

== ENCOUNTER → 2022-09-16 10:34 | Outpatient (BNVA) | payer MEDICARE, MEDICAID, SELFPAY | PROVIDERS: PCP Internal Medicine; Referring Provider Internal Medicine; Visit Provider Internal Medicine Gastroenterology | DX: K70.30 Alcoholic cirrhosis of liver without ascites (principal); B19.20 Unspecified viral hepatitis C without hepatic coma; R93.2 Abnormal findings on diagnostic imaging of liver and biliary tract; E66.01 Morbid (severe) obesity due to excess calories; G20 Parkinson's disease; E11.9 Type 2 diabetes mellitus without complications; I10 Essential (primary) hypertension; J45.909 Unspecified asthma, uncomplicated; Z68.43 Body mass index [BMI] 50.0-59.9, adult | CPT/HCPCS: 99212 ==

== ENCOUNTER 2022-10-20 07:28 | Outpatient (REF) | payer MEDICARE, MEDICAID, SELFPAY ==
--- NOTE | ~2022-10-20 | US_ITS ---
EXAMINATION: US ABDOMEN LIMITED CLINICAL INFORMATION: Alcoholic cirrhosis of liver without ascites. Screen for HCC and ascites. COMPARISON: MR abdomen without and with contrast 01/08/2022. CT liver 3-phase 09/08/2021. Ultrasound abdomen complete 05/13/2021. TECHNIQUE: Real-time imaging of the right upper quadrant abdominal viscera. FINDINGS: PANCREAS: The head and body appear normal. The tail is obscured by bowel gas. LIVER: Cirrhotic liver with heterogeneous parenchyma. There is a 2.0 x 2.1 x 2.1 cm hypoechoic lesion in the right hepatic lobe which when compared to prior ultrasound is not significantly changed (previously measuring 2.5 x 1.9 x 2.4 cm). Recent MRI from 01/08/2022 does not show any enhancing liver lesions. There is no ductal dilatation. Slow flow is seen in the main portal vein consistent with portal hypertension. GALLBLADDER: Surgically absent. COMMON BILE DUCT: Normal in caliber measuring 0.5 cm in diameter. RIGHT KIDNEY: There is mild hydroureteronephrosis. A 1.2 cm simple cyst is seen in the lower pole. No hydronephrosis or renal calculi. The kidney measures 11.9 cm in maximum dimension. FREE FLUID: None. US/US abdomen limited IMPRESSION: Cirrhotic liver with evidence of portal hypertension (slow flow in the main portal vein). Stable 2.1 cm hypoechoic lesion in the right hepatic lobe (previously measuring 2.5 cm). Most recent MRI from 01/08/2022 did not show any enhancing liver lesions. This may represent a dysplastic nodule or an area of focal fibrosis. Recommend continued surveillance. There is mild right hydroureteronephrosis of undetermined etiology, similar to the CT abdomen from 09/08/2021. Recommend follow-up with urology.
== END 2022-10-20 07:29 | disposition home or self-care (01) ==
LOC: HO.US 07:28
PROVIDERS: PCP Internal Medicine; Visit Provider Internal Medicine Gastroenterology
DX: K70.30 Alcoholic cirrhosis of liver without ascites (principal)
CPT/HCPCS: 76705

== ENCOUNTER 2022-11-01 10:09 | Emergency (ER) | payer MEDICARE, MEDICAID, SELFPAY ==
--- NOTE | ~2022-11-01 | CT_ITS ---
EXAMINATION: CT ABDOMEN AND PELVIS WITHOUT CONTRAST CLINICAL INFORMATION: Left-sided flank pain COMPARISON: Previous CT of the abdomen and pelvis the urinary 2021, MR of the abdomen December 2021 and limited abdominal ultrasound September 2022 TECHNIQUE: Multidetector volumetric imaging was performed from the superior aspect of the liver through the pubic symphysis. Sagittal and coronal reformatted images were obtained on the technologist's workstation. This CT examination was performed using dose optimization techniques as appropriate, variously including the following: *Automated exposure control *Adjustment of mA and/or kV according to patient size (this includes techniques or standardized protocols for targeted exams where dose is matched to indication/reason for exam; i.e. extremities or head) *Use of iterative reconstruction technique DLP: 700 mGy-cm FINDINGS: Exam is limited due to artifact from respiratory motion. LUNG BASES: The visualized lung bases are unremarkable. LIVER, GALLBLADDER, AND BILIARY TREE: The liver is cirrhotic. No focal liver lesion. The gallbladder is not seen and has presumably been removed. No biliary duct dilatation. PANCREAS: Unremarkable. SPLEEN: Upper normal-size spleen. ADRENAL GLANDS: Unremarkable. KIDNEYS AND URETERS: Normal left kidney. Mild right hydronephrosis and proximal ureteral dilatation. No stone seen. The right distal ureter is normal in caliber. BLADDER: Not optimally distended. GASTROINTESTINAL TRACT: There are slightly dilated fluid-filled loops of small bowel. There are some small bowel loops in the right lower quadrant with wall thickening. Appearance is suggestive of enteritis. Large bowel is normal. Appendix not identified. Small amount of ascites. Question wall thickening of the proximal stomach and small esophageal hernia. There are upper abdominal and paraesophageal varices. ABDOMINAL WALL: No significant hernia is appreciated. LYMPH NODES: Normal. VASCULAR: Atherosclerotic disease. Question small splenic artery aneurysm versus tortuosity measuring 8 mm. PELVIC VISCERA: Unremarkable. OSSEOUS STRUCTURES: Degenerative changes of the spine. Sclerotic lesion in the right acetabulum stable from prior exams. This may represent a bone island. CT/CT abdomen pelvis wo IV con IMPRESSION: Limited exam due to motion artifact. Dilated fluid-filled small bowel and distal small bowel wall thickening wall thickening. Findings are suggestive of enteritis. Mild cirrhotic-appearing liver. Small amount of ascites. Fleischner guidelines were followed.
[2022-11-01 10:12] VITALS: BP 141/67; PULSE 100; RESP 18; TEMP 36.8; O2SAT 98; BMI 39.0
[2022-11-01 11:16] LABS: MANUAL DIFF FLAG NO
[2022-11-01 11:17] LABS: Basophils Percent Auto 0.3 % (0-2); Eosinophils Absolute Auto 0.1 X10*3/uL (0.0-0.4); Eosinophils Percent Auto 1.9 % (0-4); Hematocrit 34.1 % (37.0-47.0); Hemoglobin 11.6 g/dl (12.0-16.0); Imm Gran Abs Auto 0.04 X10*3/uL (0.00-0.03); Imm Gran Pct Auto 1.1 % (0.0-0.4); Lymphocytes Absolute Auto 1.2 X10*3/uL (1.2-4.9); Lymphocytes Percent Auto 32.6 % (20-40); Mean Corpuscular Hemoglobin 34.2 pg (27.0-33.0); Mean Corpuscular Volume 100.6 fL (80.0-98.0); Mean Platelet Volume 12.3 fL (9.4-12.3); Monocytes Absolute Auto 0.5 X10*3/uL (0.1-1.2); Monocytes Percent Auto 11.9 % (2-11); Neutrophils Percent Auto 52.2 % (45-73); Red Blood Count 3.39 X10*6/uL (4.20-5.50); White Blood Count 3.8 X10*3/uL (4.8-10.8)
[2022-11-01 11:18] LABS: Platelet Count 48 X10*3/uL (160-400)
[2022-11-01 11:21] LABS: Appearance Urine Cloudy; Color Urine Dark Yellow; Glucose Urine UA Negative (Negative); Leukocyte Esterase Urine Moderate (2+) (Negative); Nitrite Urine Positive (Negative); PH 5.5 (5.0-9.0); Specific Gravity - Urine 1.025 (1.005-1.025); UMIC TRIGGER UACC YES; Urine Blood Moderate (2+) (Negative); Urine Ketones 15 mg/dL (Negative); Urine Protein Trace mg/dL (Neg-Trace)
[2022-11-01 11:34] LABS: Bacteria Urine 4+ (None Seen); Hyaline Casts Urine 0-2 /LPF (0-2); UACC Culture Trigger YES; WBC Urine 21-50 /HPF (0-5)
[2022-11-01 11:40] LABS: Alanine Aminotransferase 39 U/L (0-31); Albumin Level 2.4 g/dL (3.5-5.0); Alkaline Phosphatase 131 U/L (39-117); Anion Gap 15 (12-20); Aspartate Amino Transferase 67 U/L (5-31); Bilirubin Total 4.8 mg/dL (0.0-1.0); Blood Urea Nitrogen 12 mg/dL (9-16); Calcium 9.3 mg/dL (8.4-10.2); Carbon Dioxide 25 mmol/L (22-29); Chloride 104 mmol/L (96-108); Creatinine Clr Calc Pharmacy 78.3; Estimated Glomerular Filt Rate > 60; Glucose Random 104 mg/dL (60-115); Potassium 4.4 mmol/L (3.3-5.1); Sodium 140 mmol/L (135-145); Total Protein 7.7 g/dL (6.5-8.0)
--- NOTE | 2022-11-01 12:47 | ED_ITS ---
HPI - General Adult General Chief complaint: Abdominal Pain Stated complaint: fever l sided back pain Time Seen by Provider: 11/01/22 12:46 Source: patient and family (daughter) Mode of arrival: ambulatory Limitations: no limitations History of Present Illness HPI narrative: Patient is a 67 year old assigned female at with a history of kidney stones and hepatitis C presenting to the emergency department today with left flank pain. Patient states that over the last week her left sided flank pain has been getting worse. Patient states that she had a recent kidney ultrasound that was OK. Patient denies any dizziness, lightheadedness, abdominal pain, nausea, vomiting, fever, chills, blurry vision, double vision, loss of vision, chest pain, difficulty breathing, shortness of breath, night sweats, pain with urination, increased urinary frequency, increased urinary urgency, blood in her urine or stool, syncope or a near syncopal episode, recent trauma or falls, bowel incontinence, bladder incontinence, bowel retention, bladder retention, or any other complaints at this time. Onset (ago): week(s) (1) Severity: mild Severity scale (1-10): 2 Relieving factors: none Exacerbating factors: none Associated symptoms: denies other symptoms Treatments prior to arrival: none Related Data Home Medications Medication Instructions Recorded Confirmed atorvastatin 20 mg tablet 20 mg PO BEDTIME 04/21/20 09/16/22 carbidopa 25 mg-levodopa 100 mg 1 tab PO TID 04/21/20 09/16/22 tablet furosemide 20 mg tablet 20 mg PO DAILY 04/21/20 09/16/22 gabapentin 300 mg capsule 300 mg PO TID 04/21/20 09/16/22 levothyroxine 75 mcg tablet 75 mcg PO DAILY 04/21/20 09/16/22 linagliptin 2.5 mg-metformin 1,000 1 tab PO BIDWM 04/21/20 09/16/22 mg tablet (Jentadueto) omeprazole 20 mg capsule,delayed 20 mg PO DAILY 04/21/20 09/16/22 release albuterol sulfate 90 mcg/actuation 2 puff inhalation Q4-6H PRN 11/09/21 09/16/22 aerosol inhaler (Ventolin HFA) Shortness Of Breath alendronate 70 mg tablet (Fosamax) 1 tab PO SINCLAIR@0600 11/09/21 09/16/22 calcium carbonate 500 mg-vitamin 1 tab QAM 11/09/21 09/16/22 D3 10 mcg (400 unit) tablet (Oyster Shell Calcium-Vitamin D3) acetaminophen 650 mg 650 mg PO Q8H PRN Pain 12/01/21 09/16/22 tablet,extended release melatonin 5 mg tablet 5 mg PO BEDTIME PRN Sleep 12/01/21 09/16/22 lisinopril 20 mg tablet 20 mg PO DAILY 07/05/22 09/16/22 acarbose 50 mg tablet mg PO 09/16/22 09/16/22 ammonium lactate 12 % topical cream appl topical 09/16/22 09/16/22 montelukast 10 mg tablet mg PO 09/16/22 09/16/22 Previous Rx's Medication Instructions Recorded lactulose 10 gram/15 mL oral 15 ml PO BID 30 days #900 mL 06/21/22 solution cephalexin 500 mg capsule 500 mg PO Q6H 7 days #28 caps 11/01/22 Allergies Allergy/AdvReac Type Severity Reaction Status Date / Time aspirin [ASPIRIN] Allergy Intermediate HIVES Verified 09/16/22 11:21 Penicillins [PCN] Allergy Intermediate HIVES Verified 09/16/22 11:21 Review of Systems Constitutional: Constitutional: Reports no additional constitutional complaints, Denies chills, Denies fever(s) and Denies night sweats Eyes: Eyes: Reports no additional eye complaints, Denies blurry vision, Denies change in vision, Denies diplopia, Denies eye discharge, Denies loss of vision and Denies eye pain ENT: Denies dizziness Cardiovascular: Cardiovascular: Reports no additional cardiovascular complaints, Denies chest pain, Denies lightheadedness, Denies Loss of Consciousness and Denies dyspnea Respiratory: Respiratory: Reports no additional respiratory complaints and Denies dyspnea Gastrointestinal: Gastrointestinal: Reports no additional gastrointestinal complaints, Denies abdominal pain, Denies melena, Denies hematochezia, Denies change in bowel habits and Denies change in stool character Genitourinary: Genitourinary: Denies hematuria, Denies urinary frequency, Denies dysuria, Reports flank pain, Denies urinary incontinence, Denies urinary hesitancy and Denies urinary urgency Musculoskeletal: Musculoskeletal: Reports no additional musculoskeletal complaints, Denies numbness and Denies tingling Neurologic: Denies dizziness, Denies loss of vision, Denies numbness and Denies tingling Psychiatric: Psychiatric: Reports no additional psychiatric complaints Endocrine: Endocrine: Reports no additional endocrine complaints Hematologic/Lymphatic: Hematologic/Lymphatic: Reports no additional hematologic/lymphatic complaints Allergic/Immunologic: Allergic/Immunologic: Reports no additional allergic/immunologic complaints PMFSH Past Medical History Attestation statement: The following information was validated with the patient. Source: old records reviewed and nursing notes reviewed Medical History Anemia Cirrhosis Diabetes Hx of hepatitis C Hypertension Hyperthyroidism Parkinson disease Severe sepsis Thrombocytopenia Surgical History H/O colonoscopy History of cholecystectomy History of cystoscopy History of esophagogastroduodenoscopy (EGD) History of tonsillectomy History of tubal ligation Hx of lithotripsy Family History Family History Daughter Diabetes Daughter Diabetes Brother HTN (hypertension) Social History Social History Household Members: Family and Children Housing: House Are you a primary residential caregiver to a significant other at home: No Do you presently have visiting nurse or other home services: Yes (every month) Unable to assess alcohol history related to: Unknown Patient Tobacco Use Status: Never used Tobacco Second Hand Smoke Exposure: No Advance Directives: No Advance Directives Information Provided: Yes Advance Directives Date on File: 04/25/20 service: No Current occupational status: disabled Physical Exam ED Vital Signs: Vital Signs - 24 hr 11/01/22 10:12 Temperature 98.3 F Pulse Rate 100 Respiratory Rate 18 Blood Pressure 141/67 H Pulse Oximetry 98 Oxygen Delivery Method Room Air BMI result Body Mass Index 39.0 Const General: cooperative, no acute distress, alert and awake Nutritional Appearance: well nourished Orientation/consciousness: patient oriented x3 Limitations: no limitations HENMT Head: Yes normal to inspection and Yes atraumatic Ears: hearing grossly normal bilaterally and external ears normal General nose exam: Normal external nose present, no nasal discharge noted and no epistaxis Face and sinus: Yes normal facial exam, No abrasion and No laceration Mouth: Normal oral and palatal mucosa present, no drooling and no muffled voice Eyes General: appearance normal, both eyes and all related structures Periorbital: periorbital findings normal Eyelids: Yes eyelids normal Conjunctivae: conjunctivae normal Pupils: Equal, round and reactive pupils present EOM: EOMs intact bilaterally Neck Neck: Yes normal visual inspection, Yes full ROM and Yes no lymphadenopathy Chest Chest palpation & inspection: normal inspection of the chest Resp Effort & Inspection: normal respiratory effort and able to speak in complete sentences Auscultation: clear to auscultation bilaterally Cardio Rate: regular rate Rhythm: regular rhythm GI Inspection: Yes normal to inspection Palpation (GI): Soft to palpation, not firm, nontender and no guarding General: Yes no CVA tenderness Back/Spine/Pelvis Back: no CVA tenderness Cervical Spine: normal cervical lordosis and cervical ROM normal Thoracic/Lumbar Spine: thoracic and lumbar spine normal to inspection and thoraco-lumbar ROM normal Pelvis: no pain with anterior-posterior compression Neuro General: patient oriented x3 and moves all extremities Cranial nerves: Yes Equal, round and reactive pupils present Cognition (Neuro): normal cognition Motor exam (neuro): 5/5 motor strength present throughout Sensory Exam: Normal double simultaneous stimulation for sensation Coordination: [id number] test normal Extrem General: Yes normal to inspection, Yes full ROM and Yes capillary refill normal Psych Appearance: grossly normal Mental Status: mental status grossly normal Affect: normal affect Attitude: cooperative Thought process: Normal thought process present Thought content: Normal thought content present Insight: Good insight present (Psych) Medications Administered Discontinued Medications Generic Name Dose Route Start Last Admin Trade Name Freq PRN Reason Stop Dose Admin Ketorolac Tromethamine 15 mg 11/01/22 14:56 11/01/22 15:02 Ketorolac Tromethamine 15 Mg/Ml Vial IM 11/01/22 14:57 15 mg ONCE ONE Administration Medical Decision Making Medical Decision Making [facility] Narrative: Patient is a 67 year old assigned female at with a history of kidney stones and hepatitis C presenting to the emergency department today with left sided flank pain. Patient's physical exam was unremarkable. Patient's blood work was unremarkable. Patient's urine showed an acute urinary tract infection. Patient's abdominal/pelvis CT showed enteritis. I explained my physical exam fi ndings as well as all test results to the patient and the patient's daughter. I answered all questions asked by the patient and the patient's daughter. I stressed the importance of the patient taking her medication as prescribed. I stressed the importance of the patient following up with her primary care provider. I stressed the importance of the patient returning to the emergency department immediately if her symptoms were to worsen or if she were to develop any dizziness, shortness of breath, difficulty breathing, chest pain, blurry vision, loss of vision, nausea, vomiting, abdominal pain, fever, chills, back pain, or any other complaints. Patient verbalized agreement and understanding with this treatment plan and discharge. Differential Diagnosis Differential Diagnoses: The differential diagnosis associated with the presenta tion includes UTI, flank pain Lab Data MDM Lab Attestation statement: I reviewed the patient's lab results. 11/01/22 11:12 11/01/22 11:12 Labs: Lab Results 11/01/22 11/01/22 11/01/22 Range/Units 11:07 11:12 11:12 WBC 3.8 L (4.8-10.8) X10*3/uL RBC 3.39 L (4.20-5.50) X10*6/uL Hgb 11.6 L (12.0-16.0) g/dl Hct 34.1 L (37.0-47.0) % MCV 100.6 H (80.0-98.0) fL MCH 34.2 H (27.0-33.0) pg MCHC 34.0 (31.0-35.0) g/dl RDW 15.0 (11.0-16.0) % Plt Count 48 L (160-400) X10*3/uL MPV 12.3 (9.4-12.3) fL Immature Gran % (Auto) 1.1 H (0.0-0.4) % Neut % (Auto) 52.2 (45-73) % Lymph % (Auto) 32.6 (20-40) % [place] % (Auto) 11.9 H (2-11) % Eos % (Auto) 1.9 (0-4) % Baso % (Auto) 0.3 (0-2) % Lymph # (Auto) 1.2 (1.2-4.9) X10*3/uL [place] # (Auto) 0.5 (0.1-1.2) X10*3/uL Eos # (Auto) 0.1 (0.0-0.4) X10*3/uL Baso # (Auto) 0.0 (0.0-0.2) X10*3/uL Abs Immat Gran (auto) 0.04 H (0.00-0.03) X10*3/uL Absolute Neuts (auto) 2.0 (2.0-8.3) x10*3/uL Absolute Nucleated RBC 0.000 (0.0-0.012) X10*3/uL Nucleated RBC % (auto) 0.0 (0.0-0.2) /100WBC Sodium 140 (135-145) mmol/L Potassium 4.4 (3.3-5.1) mmol/L Chloride 104 (96-108) mmol/L Carbon Dioxide 25 (22-29) mmol/L Anion Gap 15 (12-20) BUN 12 (9-16) mg/dL Creatinine 0.69 (0.5-1.4) mg/dL Estim Creat Clear Calc 78.3 Estimated GFR > 60 Random Glucose 104 (60-115) mg/dL Calcium 9.3 (8.4-10.2) mg/dL Total Bilirubin 4.8 H (0.0-1.0) mg/dL AST 67 H (5-31) U/L ALT 39 H (0-31) U/L Alkaline Phosphatase 131 H (39-117) U/L Total Protein 7.7 (6.5-8.0) g/dL Albumin 2.4 L (3.5-5.0) g/dL Urine Color Dark Yellow Urine Appearance Cloudy Urine pH 5.5 (5.0-9.0) Ur Specific [place] 1.025 (1.005-1.025) Urine Protein Trace (Neg-Trace) mg/dL Urine Glucose (UA) Negative (Negative) mg/dL Urine Ketones 15 (Negative) mg/dL Urine Blood Moderate (2+) H (Negative) Urine Nitrite Positive H (Negative) Ur Leukocyte Esterase Moderate (2+) H (Negative) Urine RBC 3-5 H (0-2) /HPF Urine WBC 21-50 H (0-5) /HPF Ur Squamous Epith Cells 3-5 (0-2) /HPF Urine Bacteria 4+ (None Seen) Hyaline Casts 0-2 (0-2) /LPF Independent Interpretation I performed an independent interpretation of an: CT Scan Interpretation: My interpretation is in agreement with the radiologist's impression of this imaging study. EXAMINATION: CT ABDOMEN AND PELVIS WITHOUT CONTRAST? CLINICAL INFORMATION: Left-sided flank pain? COMPARISON: Previous CT of the abdomen and pelvis the 2021, MR of the abdomen December 2021 and limited abdominal ultrasound September 2022? TECHNIQUE: Multidetector volumetric imaging was performed from the superior aspect of the liver through the pubic symphysis. Sagittal and coronal reformatted images were obtained on the technologist's workstation.? This CT examination was performed using dose optimization techniques as appropriate, variously including the following: *Automated exposure control *Adjustment of mA and/or kV according to patient size (this includes techniques or standardized protocols for targeted exams where dose is matched to indication/reason for exam; i.e. extremities or head) *Use of iterative reconstruction technique DLP: 700 mGy-cm FINDINGS: Exam is limited due to artifact from respiratory motion. LUNG BASES: The visualized lung bases are unremarkable.? LIVER, GALLBLADDER, AND BILIARY TREE: The liver is cirrhotic. No focal liver lesion. The gallbladder is not seen and has presumably been removed. No biliary duct dilatation. PANCREAS: Unremarkable.? SPLEEN: Upper normal-size spleen.? ADRENAL GLANDS: Unremarkable.? KIDNEYS AND URETERS: Normal left kidney. Mild right hydronephrosis and proximal ureteral dilatation. No stone seen. The right distal ureter is normal in caliber.? BLADDER: Not optimally distended.? GASTROINTESTINAL TRACT: There are slightly dilated fluid-filled loops of small bowel. There are some small bowel loops in the right lower quadrant with wall thickening. Appearance is suggestive of enteritis. Large bowel is normal. Appendix not identified. Small amount of ascites. Question wall thickening of the proximal stomach and small esophageal hernia. There are upper abdominal and paraesophageal varices. ABDOMINAL WALL: No significant hernia is appreciated.? LYMPH NODES: Normal. VASCULAR: Atherosclerotic disease. Question small splenic artery aneurysm versus tortuosity measuring 8 mm. PELVIC VISCERA: Unremarkable.? OSSEOUS STRUCTURES: Degenerative changes of the spine. Sclerotic lesion in the right acetabulum stable from prior exams. This may represent a bone island. CT/CT abdomen pelvis wo IV con IMPRESSION: Limited exam due to motion artifact. Dilated fluid-filled small bowel and distal small bowel wall thickening wall thickening. Findings are suggestive of enteritis. Mild cirrhotic-appearing liver. Small amount of ascites. ? Fleischner guidelines were followed. Dictated By: Lanette Iqbal MD Signed By: Electronically signed by Lanette Iqbal MD 11/01/22 0120 Independent Historian Clinical information obtained from an independent historian. History obtained from or confirmed by: Other (patient's daughter) Discharge Plan Discharge Clinical Impression: Urinary tract infection, Enteritis Patient Disposition: Home, Self-Care Instructions: Enteritis (ED), Urinary Tract Infection in Older Adults (ED) Additional Instructions: Follow up with your primary care provider. Return to the emergency department immediately if your symptoms worsen or if you develop any dizziness, shortness o f breath, difficulty breathing, chest pain, blurry vision, loss of vision, nausea, vomiting, abdominal pain, fever, chills, back pain, or any other complaints. Prescriptions: New cephalexin 500 mg capsule 500 mg PO Q6H 7 Days Qty: 28 0RF No Action lactulose 10 gram/15 mL solution 15 ml PO BID 30 Days Qty: 900 4RF atorvastatin 20 mg tablet 20 mg PO BEDTIME levothyroxine 75 mcg tablet 75 mcg PO DAILY gabapentin 300 mg capsule 300 mg PO TID omeprazole 20 mg capsule,delayed release(DR/EC) 20 mg PO DAILY furosemide 20 mg tablet 20 mg PO DAILY carbidopa-levodopa 25-100 mg tablet 1 tab PO TID Jentadueto 2.5-1,000 mg tablet 1 tab PO BIDWM alendronate [Fosamax] 70 mg tablet 1 tab PO SINCLAIR@0600 albuterol sulfate [Ventolin HFA] 90 mcg/actuation HFA aerosol inhaler 2 puff inhalation Q4-6H PRN (Reason: Shortness Of Breath) calcium carbonate-vitamin D3 [Oyster Shell Calcium-Vit D3] 500 mg-10 mcg (400 unit) tablet 1 tab QAM acetaminophen 650 mg Tablet Extended Release 650 mg PO Q8H PRN (Reason: Pain) melatonin 5 mg Tablet 5 mg PO BEDTIME PRN (Reason: Sleep) lisinopril 20 mg Tablet 20 mg PO DAILY montelukast 10 mg tablet PO acarbose 50 mg tablet PO ammonium lactate 12 % cream topical Referrals: Everett Henning MD [Primary Care Provider] - Interventions: ED Discharge Assessment Last Done: 11/01/22 15:14 Discharge Date/Time: 11/01/22 15:14 Print Language: Pashto
--- NOTE | 2022-11-01 14:58 | PC.NURSE ---
discharged home with medication for UTI will follow up with pcp or return with worsening symptoms. aox4 amb with steady gait.
[2022-11-01] MEDS: Ketorolac Tromethamine 15 MG/ML VIAL IM (15:02)
== END 2022-11-01 15:14 | disposition home or self-care (01) ==
PROVIDERS: Emergency Provider Emergency Medicine; PCP Internal Medicine
DX: N39.0 Urinary tract infection, site not specified (principal); K52.9 Noninfective gastroenteritis and colitis, unspecified; R50.9 Fever, unspecified; M54.50 Low back pain, unspecified; Z79.899 Other long term (current) drug therapy
CPT/HCPCS: 36415; 74176; 80053; 81001; 85025; 87086; 87088; 87186; 96372; 99283; 99284; J1885

== ENCOUNTER → 2022-11-15 09:38 | Outpatient (BNVA) | payer MEDICARE, MEDICAID, SELFPAY | PROVIDERS: PCP Internal Medicine; Visit Provider Internal Medicine Gastroenterology | DX: K70.30 Alcoholic cirrhosis of liver without ascites (principal); R93.2 Abnormal findings on diagnostic imaging of liver and biliary tract | CPT/HCPCS: 99212 ==

== ENCOUNTER → 2022-11-29 09:42 | Outpatient (BNVA) | payer MEDICARE, MEDICAID, SELFPAY | PROVIDERS: PCP Internal Medicine; Visit Provider Dietitian, Registered | DX: E66.9 Obesity, unspecified (principal); Z68.35 Body mass index [BMI] 35.0-35.9, adult; E11.9 Type 2 diabetes mellitus without complications | CPT/HCPCS: 97802 ==

== ENCOUNTER → 2022-12-10 09:10 | Outpatient (BNVA) | payer MEDICARE, MEDICAID, SELFPAY | PROVIDERS: PCP Internal Medicine; Referring Provider Internal Medicine; Visit Provider Internal Medicine Gastroenterology | DX: Z12.11 Encounter for screening for malignant neoplasm of colon (principal); K70.30 Alcoholic cirrhosis of liver without ascites; D61.818 Other pancytopenia; N13.4 Hydroureter; R60.0 Localized edema; E66.9 Obesity, unspecified; B19.20 Unspecified viral hepatitis C without hepatic coma | CPT/HCPCS: 99212 ==

== ENCOUNTER 2022-12-13 07:40 | Outpatient (REF) | payer MEDICARE, MEDICAID, SELFPAY ==
[2022-12-13 08:31] LABS: Anion Gap 12 (12-20); Blood Urea Nitrogen 7 mg/dL (9-16); Calcium 8.4 mg/dL (8.4-10.2); Carbon Dioxide 25 mmol/L (22-29); Chloride 108 mmol/L (96-108); Estimated Glomerular Filt Rate > 60; Glucose Random 108 mg/dL (60-115); Potassium 4.3 mmol/L (3.3-5.1); Sodium 141 mmol/L (135-145)
[2022-12-13 08:32] LABS: Blood Urea Nitrogen 7 mg/dL (9-16); Estimated Glomerular Filt Rate > 60
== END 2022-12-13 07:41 | disposition home or self-care (01) ==
LOC: HO.LAB 07:40
PROVIDERS: PCP Internal Medicine; Visit Provider Internal Medicine Gastroenterology
DX: K70.30 Alcoholic cirrhosis of liver without ascites (principal)
CPT/HCPCS: 36415; 80048; 82565; 84520

== ENCOUNTER → 2023-01-05 09:27 | Outpatient (BNVA) | payer MEDICARE, MEDICAID, SELFPAY | PROVIDERS: PCP Internal Medicine; Visit Provider Nurse Practitioner Family | DX: N13.30 Unspecified hydronephrosis (principal); N20.0 Calculus of kidney | CPT/HCPCS: 99212 ==

== ENCOUNTER 2023-01-11 11:40 | Outpatient (RCR) | payer MEDICARE, MEDICAID, SELFPAY ==
[2021-12-01 11:27] VITALS: BP 144/64; PULSE 85; RESP 16; TEMP 36.3; O2SAT 100; BMI 49.4
--- NOTE | 2021-12-01 12:09 | P.CNHO_ITS ---
Subjective - Subjective Chief complaint: Consult for: Pancytopenia. Patient: new to practice Consult date: 12/01/21 Requesting Physician: Daniel. Primary Care Provider: Everett Ng MD Medical Summary: DIAGNOSIS: PANCYTOPENIA. HPI - Consult Narrative Reason for consult: Consult for: Pancytopenia. Narrative: Meena Epstein is a pleasant 66 year old lady, who was referred by Dr. Sanchez, for a chronic pancytopenia. CBC from 11/18: WBC 3.2, HGB 10.7, HCT 32.7, MCV 95.1, PLT 85. Peripheral smear from 11/11/2021: Normochromic normocytic anemia: Occasional targets. WBCs are reduced in number and comprised of normal constant joints. Platelets are reduced in number. No significant large or giant forms identified. Serial WBCs over the past few months: 08/14: 4.0, 11/10/21: 3.7, 11/11: 2.4, 11/12: 2.7. Serial hemoglobin over the past few months: 08/14: 12.6, 11/09/21: 10.7, 11/12: 10.3. Serial platelets over the past few months: 08/14: 89, 11/10/21: 54, 11/12: 59. Ultrasound of the abdomen from 05/19/2021: Cirrhotic-appearing liver. Question 2.5 x 1.9 x 2.4 cm hypoechoic lesion in the right lobe of the liver. Follow-up liver MRI recommended. Limited visualization of the pancreas. MRI of the abdomen from 08/12: Cirrhotic liver. Evaluation of the liver is limited due to artifact from respiratory motion. Question lesion in the inferior posterior segment of the right lobe of the liver measuring 1 x 1.7 cm versus artifact due to motion and partial volume averaging with the adjacent bowel. Follow-up by CT with IV contrast according to dedicated liver phase imaging should be considered. Upper normal-size spleen. Paraesophageal and perigastric varices. No ascites. Small right renal cysts. CT scan of the abdomen from 09/08: Cirrhotic morphology of the liver. No LI RADS [address] findings to correspond to suspected MRI or sonographic lesion in the liver however given prior findings consider a 3-6 month follow-up CT or MR liver protocol. Mild hydroureteronephrosis. No obstructing stone visualized however the pelvis was not imaged. Recommend correlation with clinical symptoms and if any clinical concern for obstructing stone a CT stone protocol could be obtained. Sequelae of portal hypertension including large periesophageal and perigastric varices. FAMILY HISTORY: She does not know her family too well. SOCIAL HISTORY: She worked in [employer]. She is . Had 7 of her own children and 2 more that she raised. She denies smoking nor alcohol use. ROS: She has been feeling really well. Denies easy fatigability. No fever chills no night sweats. Appetite is regular. She denies weight loss. It does fluctuate somewhat. No headache no dizziness. Denies chest pain or trouble breathing. Denies abdominal pain nausea vomiting heartburn indigestion. Bowels are working without any gross blood in it. Denies dysuria or hematuria. She complains of pain in her left shoulder. She has a muscle strain. Denies any focal weakness. She has history of depression. She has some spots on her upper arms that are chronic. Review of Systems - Constitutional Reports system reviewed and no additional complaints, except as documented, Denies chills, Denies fatigue, Denies fever(s), Denies malaise, Denies weight loss - Eyes Reports system reviewed and no additional complaints, except as documented - ENT Reports system reviewed and no additional complaints, except as documented - Cardiovascular Reports system reviewed and no additional complaints, except as documented - Respiratory Reports no additional respiratory complaints - Gastrointestinal Reports system reviewed and no additional complaints, except as documented - Genitourinary Reports no additional female genitourinary complaints - Musculoskeletal Reports system reviewed and no additional complaints, except as documented - Integumentary/Breasts Skin/Breast: Reports no additional skin complaints - Neurologic Reports system reviewed and no additional complaints, except as documented - Psychiatric Reports system reviewed and no additional complaints, except as documented - Endocrine Reports no additional endocrine complaints - Hematologic/Lymphatic Reports system reviewed and no additional complaints, except as documented - Allergic/Immunologic Reports system reviewed and no additional complaints, except as documented Oncology Screenings - ECOG Performance Status ECOG Performance Status: 1 [facility] Medical History: Medical History (Last Reviewed 11/10/21 @ 07:17 by Amy Kincaid MD) Anemia Cirrhosis Diabetes Hx of hepatitis C Hypertension Hyperthyroidism Parkinson disease Severe sepsis Thrombocytopenia Functional capacity: uses cane/walker Patient : No Family History: Family History (Last Reviewed 12/01/21 @ 11:33 by Ping Ng CMA) Daughter Diabetes Daughter Diabetes Brother HTN (hypertension) Surgical History: Surgical History (Last Updated 12/01/21 @ 11:33 by Ping Ng CMA) H/O colonoscopy History of cholecystectomy History of cystoscopy History of esophagogastroduodenoscopy (EGD) History of tonsillectomy History of tubal ligation Hx of lithotripsy Social History: Social History (Last Updated 12/01/21 @ 11:34 by Ping Ng CMA) Living Situation History: Household Members: Family Household Members: Children Housing: House Are you a primary career development consultant to a significant other at home: No Do you presently have visiting nurse or other home services: Yes Do you presently have visiting nurse or other home services comment: every month Alcohol History: Unable to assess alcohol history related to: Unknown Alcohol History Details: 1. How often do you have a drink containing alcohol?: a. Never Tobacco History: Patient Tobacco Use Status: Never used Tobacco Second Hand Smoke Exposure: No Substance Use History: Use of substances other than those prescribed or required for medical reasons : No Domestic Abuse History: Have you been hit, kicked, punched, or otherwise hurt by someone within the past year? If so, by whom?: No Advance Directives: Advance Directives Date on File: 04/25/20 Homicidal Assessment: Do you have thoughts of harming others: None Do you have a plan to hurt others: No Plan Do you have the means to hurt others: No Nutrition Assessment: Recently lost weight without trying: No Patient : No Occupation Assessmet: service: No Current occupational status: disabled Home Medications and Allergies Home Medications Medication Instructions Recorded Confirmed Type acarbose 25 mg tablet 50 mg PO TIDWMEAL 04/21/20 12/01/21 History atorvastatin 20 mg tablet 20 mg PO BEDTIME 04/21/20 12/01/21 History carbidopa 25 mg-levodopa 100 mg 1 tab PO TID 04/21/20 12/01/21 History tablet furosemide 20 mg tablet 20 mg PO DAILY 04/21/20 12/01/21 History gabapentin 300 mg capsule 300 mg PO TID 04/21/20 12/01/21 History glipizide 10 mg tablet 10 mg PO BIDAC 04/21/20 12/01/21 History levothyroxine 75 mcg tablet 75 mcg PO DAILY 04/21/20 12/01/21 History linagliptin 2.5 mg-metformin 1,000 1 tab PO BIDWM 04/21/20 12/01/21 History mg tablet (Jentadueto) lisinopril 2.5 mg tablet 5 mg PO DAILY 04/21/20 12/01/21 History omeprazole 20 mg capsule,delayed 20 mg PO DAILY 04/21/20 12/01/21 History release albuterol sulfate 90 mcg/actuation 2 puff INHALATION Q4-6H PRN 11/09/21 12/01/21 History aerosol inhaler (Ventolin HFA) alendronate 70 mg tablet (Fosamax) 1 tab PO SINCLAIR@0600 11/09/21 12/01/21 History calcium carbonate 500 mg-vitamin 1 tab QAM 11/09/21 12/01/21 History D3 10 mcg (400 unit) tablet (Oyster Shell Calcium-Vitamin D3) acetaminophen 650 mg 650 mg PO Q8H PRN 12/01/21 12/01/21 History tablet,extended release lactulose 10 gram/15 mL oral 15 ml PO BID 12/01/21 12/01/21 History solution melatonin 5 mg tablet 5 mg PO BEDTIME PRN 12/01/21 12/01/21 History Allergies Allergy/AdvReac Type Severity Reaction Status Date / Time aspirin [ASPIRIN] Allergy Intermediate HIVES Verified 12/01/21 11:35 Penicillins [PCN] Allergy Intermediate HIVES Verified 12/01/21 11:35 Physical Exam Vital signs: Vital Signs Temp 97.3 F 12/01/21 11:27 Pulse 85 12/01/21 11:27 Resp 16 12/01/21 11:27 BP 144/64 H 12/01/21 11:27 Pulse Ox 100 12/01/21 11:27 Intake & Output 11/30/21 12/01/21 12/01/21 18:59 06:59 18:59 Other: Weight 89.5 kg [place] Weight in Grams [id number] Weight 89.5 kg - Constitutional Present: no acute distress - Routine HEENT Exam Head: Present: normal inspection ENT: Present: mucous membranes moist - Routine Neck Exam Present: supple. Absent: lymphadenopathy - Routine Respiratory Exam Present: CTAB - Routine Cardiovascular Exam Cardiovascular: Present: RRR, S1 - Routine Abdominal Exam Present: soft, nontender. Absent: organomegaly Hem/Onc Consult Result - Labs CBC & Chem 7: 12/01/21 12:06 12/01/21 12:06 Assessment and Plan Patient Active problem list reviewed?: Yes (1) Pancytopenia Status: Acute Assessment and plan: This is a pleasant 66-year-old lady with a history of chronic pancytopenia. DIFFERENTIAL DIAGNOSIS: 1. HYPERSPLENISM FROM UNDERLYING LIVER DISEASE: She does have history of underlying hepatitis C. She has history of cirrhosis. She has splenomegaly. That explains her pancytopenia. 2. A CHRONIC INFECTION: HIV versus hepatitis. 3. B12 FOLATE DEFICIENCY: Coexisting is a possibility. 4. COLLAGEN VASCULAR DISORDER: Is in the differential. 5. UNDERLYING MYELO INFILTRATIVE DISORDER: MDS versus lymphoma versus myeloma. Not likely since he already have an explanation. PLAN: I will proceed with further evaluation. Will check CBC D with the peripheral smear. Check HIV and hepatitis profile:NEGATIVE. Check B12 and folate levels; 797, 11.9. Check a collagen vascular profile: ESR 36. RA:<15, RIO: NEGATIVE. Check LDH: 243 and SIEP. She will return in 1 month for a follow-up visit. Thanks, CC: Dr. Sanchez. - Time Spent With Patient Time Spent with Patient (in minutes): 30
[2021-12-01 12:11] LABS: Baso%MD 0.3 %; Hematocrit 35.2 % (37.0-47.0); Hemoglobin 11.6 g/dl (12.0-16.0); IG%MD 0.3 %; Lymph%MD 32.1 %; Mean Corpuscular Hemoglobin 31.4 pg (27.0-33.0); Mean Corpuscular Volume 95.4 fL (80.0-98.0); Mean Platelet Volume 10.3 fL (9.4-12.3); Mono%MD 15.5 %; Neut%MD 48.8 %; Red Blood Count 3.69 X10*6/uL (4.20-5.50); Red Cell Distribution Width 14.6 % (11.0-16.0); White Blood Count 3.4 X10*3/uL (4.8-10.8)
[2021-12-01 12:16] LABS: Platelet Count 86 X10*3/uL (160-400)
[2021-12-01 12:31] LABS: Alanine Aminotransferase 22 U/L (0-31); Albumin Level 2.8 g/dL (3.5-5.0); Alkaline Phosphatase 142 U/L (39-117); Anion Gap 14 (12-20); Aspartate Amino Transferase 76 U/L (5-31); Bilirubin Total 2.5 mg/dL (0.0-1.0); Blood Urea Nitrogen 7 mg/dL (9-16); Calcium 9.2 mg/dL (8.4-10.2); Carbon Dioxide 24 mmol/L (22-29); Chloride 106 mmol/L (96-108); Creatinine Clr Calc Pharmacy 69.7; Eosinophils Absolute Manual 0.2 X10*3/uL (0.0-0.4); Eosinophils Percent Manual 6 % (0-4); Estimated Glomerular Filt Rate > 60; Glucose Random 159 mg/dL (60-115); Lactate Dehydrogenase 243 U/L (122-220); Lymphocytes Absolute Manual 0.7 X10*3/uL (1.2-4.9); Lymphocytes Percent Manual 21 % (20-40); Monocytes Absolute Manual 0.5 X10*3/uL (0.1-1.2); Monocytes Percent Manual 16 % (2-11); Neutrophils Percent Manual 57 % (45-73); Potassium 4.7 mmol/L (3.3-5.1); Rheumatoid Factor < 15.0 IU/mL (<15.0); Sodium 139 mmol/L (135-145); Total Protein 8.1 g/dL (6.5-8.0)
[2021-12-01 12:32] LABS: Band Neutrophils Percent 0 % (3-5); Neutrophils Absolute Manual 1.9 X10*3/uL (2.0-8.3); Platelet Estimate NORMAL (NORMAL); Platelet Morphology Comment NORMAL; RBC Morphology NORMAL
[2021-12-01 12:50] LABS: HBS Num1 1.59 mIU/mL (0-7.99); HBc Num1 0.34 S/CO (0.00-0.79); HBsAGNum1 0.32 S/CO (0.00-0.99); HIV AB/AG Nonreactive (Nonreactive); HIV Num 1 0.33 S/CO (0.00-0.99); Hepatitis B Core Antibody Nonreactive (Nonreactive); Hepatitis B Surface Antigen Negative (Negative); ~HepC Num1 0.59 S/CO (0.00-0.79); ~Hepatitis B Surface Antibody NONREACTIVE (Nonreactive); ~Hepatitis C Antibody Nonreactive (Nonreactive)
[2021-12-01 12:51] LABS: Erythrocyte Sedimentation Rate 36 MM/HR (0-20); Ferritin 77 ng/mL (10-250)
[2021-12-01 13:07] LABS: Folate 11.9 ng/mL (> or = 4.0); Vitamin B12 797 pg/mL (200-900)
--- NOTE | 2021-12-01 15:56 | MHC.HEMONCMA ---
Pt was in for consult. Clinical summary reviewed and updated, VSS. Labs were drawn. Pt to return in 1 month.
[2021-12-03 13:45] LABS: Anti Nuclear Antibody Screen NEGATIVE (NEGATIVE)
[2021-12-07 12:46] LABS: IgA 1059 mg/dL (70-320); IgG 3000 mg/dL (600-1540); IgM 51 mg/dL (50-300)
[2022-01-01 11:13] VITALS: BP 141/64; PULSE 81; RESP 14; TEMP 36.3; O2SAT 99; BMI 49.5
[2022-01-01 11:23] LABS: MANUAL DIFF FLAG NO
--- NOTE | 2022-01-01 11:28 | PM.HEMONCPN ---
Medical Summary - Medical Summary Date of Service: 01/01/22 Chief complaint: Follow-up for: Pancytopenia. Medical Summary: DIAGNOSIS: PANCYTOPENIA. Interval History Interval history: Meena Epstein is a pleasant 66 year old lady, here for a follow-up visit. She has been feeling really well. Denies easy fatigability. No fever chills no night sweats. Appetite is regular. She denies weight loss. It does fluctuate somewhat. No headache no dizziness. Denies chest pain or trouble breathing. Denies abdominal pain nausea vomiting heartburn indigestion. Bowels are working without any gross blood in it. Denies dysuria or hematuria. She complains of pain in her left shoulder. She has a muscle strain. Denies any focal weakness. She has history of depression. Presenting history: She was referred by Dr. Sanchez, for a chronic pancytopenia. CBC from 11/18: WBC 3.2, HGB 10.7, HCT 32.7, MCV 95.1, PLT 85. Peripheral smear from 11/11/2021: Normochromic normocytic anemia: Occasional targets. WBCs are reduced in number and comprised of normal constant joints. Platelets are reduced in number. No significant large or giant forms identified. Serial WBCs over the past few months: 08/14: 4.0, 11/10/21: 3.7, 11/11: 2.4, 11/12: 2.7. Serial hemoglobin over the past few months: 08/14: 12.6, 11/09/21: 10.7, 11/12: 10.3. Serial platelets over the past few months: 08/14: 89, 11/10/21: 54, 11/12: 59. Ultrasound of the abdomen from 05/19/2021: Cirrhotic-appearing liver. Question 2.5 x 1.9 x 2.4 cm hypoechoic lesion in the right lobe of the liver. Follow-up liver MRI recommended. Limited visualization of the pancreas. MRI of the abdomen from 08/12: Cirrhotic liver. Evaluation of the liver is limited due to artifact from respiratory motion. Question lesion in the inferior posterior segment of the right lobe of the liver measuring 1 x 1.7 cm versus artifact due to motion and partial volume averaging with the adjacent bowel. Follow-up by CT with IV contrast according to dedicated liver phase imaging should be considered. Upper normal-size spleen. Paraesophageal and perigastric varices. No ascites. Small right renal cysts. CT scan of the abdomen from 09/08: Cirrhotic morphology of the liver. No LI RADS [address] findings to correspond to suspected MRI or sonographic lesion in the liver however given prior findings consider a 3-6 month follow-up CT or MR liver protocol. Mild hydroureteronephrosis. No obstructing stone visualized however the pelvis was not imaged. Recommend correlation with clinical symptoms and if any clinical concern for obstructing stone a CT stone protocol could be obtained. Sequelae of portal hypertension including large periesophageal and perigastric varices. FAMILY HISTORY: She does not know her family too well. SOCIAL HISTORY: She worked in [employer]. She is . Had 7 of her own children and 2 more that she raised. She denies smoking nor alcohol use. She has some spots on her upper arms that are chronic. Review of Systems - Constitutional Reports no additional constitutional complaints, Denies lack of energy, Denies weight gain - Eyes Reports no additional eye complaints - ENT Reports no additional ear, nose, mouth, and throat complaints - Cardiovascular Reports no additional cardiovascular complaints - Respiratory Reports no additional respiratory complaints - Gastrointestinal Reports no additional gastrointestinal complaints - Genitourinary Reports no additional female genitourinary complaints - Musculoskeletal Reports no additional musculoskeletal complaints - Integumentary/Breasts Skin/Breast: Reports no additional skin complaints - Neurologic Reports no additional neurologic complaints - Psychiatric Reports no additional psychiatric complaints - Endocrine Reports no additional endocrine complaints - Hematologic/Lymphatic Reports no additional hematologic/lymphatic complaints - Allergic/Immunologic Reports no additional allergic/immunologic complaints [facility] Medical History: Medical History (Last Reviewed 01/01/22 @ 11:18 by Ping Ng CMA) Anemia Cirrhosis Diabetes Hx of hepatitis C Hypertension Hyperthyroidism Parkinson disease Severe sepsis Thrombocytopenia Functional capacity: uses cane/walker Patient : No Family History: Family History (Last Reviewed 01/01/22 @ 11:18 by Ping Ng CMA) Daughter Diabetes Daughter Diabetes Brother HTN (hypertension) Surgical History: Surgical History (Last Reviewed 01/01/22 @ 11:18 by Ping Ng CMA) H/O colonoscopy History of cholecystectomy History of cystoscopy History of esophagogastroduodenoscopy (EGD) History of tonsillectomy History of tubal ligation Hx of lithotripsy Social History: Social History (Last Reviewed 01/01/22 @ 11:18 by Ping Ng CMA) Living Situation History: Household Members: Family Household Members: Children Housing: House Are you a primary healthcare risk control consultant to a significant other at home: No Do you presently have visiting nurse or other home services: Yes Do you presently have visiting nurse or other home services comment: every month Alcohol History: Unable to assess alcohol history related to: Unknown Alcohol History Details: 1. How often do you have a drink containing alcohol?: a. Never Tobacco History: Patient Tobacco Use Status: Never used Tobacco Second Hand Smoke Exposure: No Substance Use History: Use of substances other than those prescribed or required for medical reasons: No Domestic Abuse History: Have you been hit, kicked, punched, or otherwise hurt by someone within the past year? If so, by whom?: No Advance Directives: Advance Directives Date on File: 04/25/20 Homicidal Assessment: Do you have thoughts of harming others: None Do you have a plan to hurt others: No Plan Do you have the means to hurt others: No Nutrition Assessment: Recently lost weight without trying: No Patient : No Occupation Assessmet: service: No Current occupational status: disabled Home Medications and Allergies Home Medications Medication Instructions Recorded Confirmed Type acarbose 25 mg tablet 50 mg PO TIDWMEAL 04/21/20 01/01/22 History atorvastatin 20 mg tablet 20 mg PO BEDTIME 04/21/20 01/01/22 History carbidopa 25 mg-levodopa 100 mg 1 tab PO TID 04/21/20 01/01/22 History tablet furosemide 20 mg tablet 20 mg PO DAILY 04/21/20 01/01/22 History gabapentin 300 mg capsule 300 mg PO TID 04/21/20 01/01/22 History glipizide 10 mg tablet 5 mg PO BIDAC 04/21/20 01/01/22 History levothyroxine 75 mcg tablet 75 mcg PO DAILY 04/21/20 01/01/22 History linagliptin 2.5 mg-metformin 1,000 1 tab PO BIDWM 04/21/20 01/01/22 History mg tablet (Jentadueto) lisinopril 2.5 mg tablet 5 mg PO DAILY 04/21/20 01/01/22 History omeprazole 20 mg capsule,delayed 20 mg PO DAILY 04/21/20 01/01/22 History release albuterol sulfate 90 mcg/actuation 2 puff inhalation Q4-6H PRN 11/09/21 01/01/22 History aerosol inhaler (Ventolin HFA) Shortness Of Breath alendronate 70 mg tablet (Fosamax) 1 tab PO SINCLAIR@0600 11/09/21 01/01/22 History calcium carbonate 500 mg-vitamin 1 tab QAM 11/09/21 01/01/22 History D3 10 mcg (400 unit) tablet (Oyster Shell Calcium-Vitamin D3) acetaminophen 650 mg 650 mg PO Q8H PRN Pain 12/01/21 01/01/22 History tablet,extended release lactulose 10 gram/15 mL oral 15 ml PO BID 12/01/21 01/01/22 History solution melatonin 5 mg tablet 5 mg PO BEDTIME PRN Sleep 12/01/21 01/01/22 History Allergies Allergy/AdvReac Type Severity Reaction Status Date / Time aspirin [ASPIRIN] Allergy Intermediate HIVES Verified 01/01/22 11:18 Penicillins [PCN] Allergy Intermediate HIVES Verified 01/01/22 11:18 Exam Vital signs: Vital Signs Temp 97.4 F 01/01/22 11:13 Pulse 81 01/01/22 11:13 Resp 14 01/01/22 11:13 BP 141/64 H 01/01/22 11:13 Pulse Ox 99 01/01/22 11:13 O2 Del Method 01/01/22 11:13 Intake & Output 12/31/21 01/01/22 01/01/22 18:59 06:59 18:59 Other: Weight 89.8 kg Weight in Grams 28589 Weight 89.8 kg BMI result Body Mass Index 49.5 - Constitutional Present: no acute distress - Routine HEENT Exam Head: Present: normal inspection Eye: Present: normal appearance ENT: Present: mucous membranes moist - Routine Neck Exam Present: full ROM - Routine Respiratory Exam Present: CTAB - Routine Cardiovascular Exam Cardiovascular: Present: RRR, S1 - Routine Abdominal Exam Present: soft, nontender. Absent: organomegaly - Routine Rectal Exam Patient deferred: digital exam - Routine Extremities Exam Present: nontender - Routine Back/Spine/Pelvis Exam Back/Spine: Present: full ROM - Routine Skin Exam Present: intact - Routine Neurological Exam Present: alert, oriented X3 - Routine Psychiatric Exam Present: normal affect Data - Labs CBC & Chem 7: 01/01/22 11:10 01/01/22 11:10 Labs: 12/01/21 12:06 RIO Reflex Titer and Pattern Routine Complete Blood Count Man Dif Stat Comprehensive Met. Panel Stat Erythrocyte Sedimentation Rate Routine Ferritin Routine HIV Ab/Ag Routine Hepatitis B,C Profile Routine Immunofixation Pnl, Serum Routine Lactate Dehydrogenase Routine RA [Rheumatoid Factor] Routine Vitamin B12 and Folate Routine Laboratory Last Values WBC 3.4 X10*3/uL (4.8-10.8) L 12/01/21 12:06 RBC 3.69 X10*6/uL (4.20-5.50) L 12/01/21 12:06 Hgb 11.6 g/dl (12.0-16.0) L 12/01/21 12:06 Hct 35.2 % (37.0-47.0) L 12/01/21 12:06 MCV 95.4 fL (80.0-98.0) 12/01/21 12:06 MCH 31.4 pg (27.0-33.0) 12/01/21 12:06 MCHC 33.0 g/dl (31.0-35.0) 12/01/21 12:06 RDW 14.6 % (11.0-16.0) 12/01/21 12:06 Plt Count 86 X10*3/uL (160-400) L 12/01/21 12:06 MPV 10.3 fL (9.4-12.3) 12/01/21 12:06 Absolute Nucleated RBC 0.000 X10*3/uL (0.0-0.012) 12/01/21 12:06 Nucleated RBC % (auto) 0.0 /100WBC (0.0-0.2) 12/01/21 12:06 Neutrophils % (Manual) 57 % (45-73) 12/01/21 12:06 Band Neutrophils % 0 % (3-5) L 12/01/21 12:06 Lymphocytes % (Manual) 21 % (20-40) 12/01/21 12:06 Monocytes % (Manual) 16 % (2-11) H 12/01/21 12:06 Eosinophils % (Manual) 6 % (0-4) H 12/01/21 12:06 Abs Neuts (Manual) 1.9 X10*3/uL (2.0-8.3) L 12/01/21 12:06 Lymphocytes # (Manual) 0.7 X10*3/uL (1.2-4.9) L 12/01/21 12:06 Monocytes # (Manual) 0.5 X10*3/uL (0.1-1.2) 12/01/21 12:06 Eosinophils # (Manual) 0.2 X10*3/uL (0.0-0.4) 12/01/21 12:06 Platelet Estimate NORMAL (NORMAL) 12/01/21 12:06 Plt Morphology Comment NORMAL 12/01/21 12:06 RBC Morphology NORMAL 12/01/21 12:06 ESR 36 MM/HR (0-20) H 12/01/21 12:06 Sodium 139 mmol/L (135-145) 12/01/21 12:06 Potassium 4.7 mmol/L (3.3-5.1) D 12/01/21 12:06 Chloride 106 mmol/L (96-108) 12/01/21 12:06 Carbon Dioxide 24 mmol/L (22-29) 12/01/21 12:06 Anion Gap 14 (12-20) 12/01/21 12:06 BUN 7 mg/dL (9-16) L 12/01/21 12:06 Creatinine 0.66 mg/dL (0.5-1.4) 12/01/21 12:06 Estim Creat Clear Calc 69.7 12/01/21 12:06 Estimated GFR > 60 12/01/21 12:06 Random Glucose 159 mg/dL (60-115) H 12/01/21 12:06 Calcium 9.2 mg/dL (8.4-10.2) D 12/01/21 12:06 Ferritin 77 ng/mL (10-250) 12/01/21 12:06 Total Bilirubin 2.5 mg/dL (0.0-1.0) H 12/01/21 12:06 AST 76 U/L (5-31) H 12/01/21 12:06 ALT 22 U/L (0-31) 12/01/21 12:06 Alkaline Phosphatase 142 U/L (39-117) H 12/01/21 12:06 Lactate Dehydrogenase 243 U/L (122-220) H 12/01/21 12:06 Total Protein 8.1 g/dL (6.5-8.0) H 12/01/21 12:06 Albumin 2.8 g/dL (3.5-5.0) L 12/01/21 12:06 Vitamin B12 797 pg/mL (200-900) 12/01/21 12:06 Folate 11.9 ng/mL (> or = 4.0) 12/01/21 12:06 IgG Total 3000 mg/dL (600-1540) H 12/01/21 12:06 IgA Total 1059 mg/dL (70-320) H 12/01/21 12:06 IgM 51 mg/dL (50-300) 12/01/21 12:06 SYLVESTER Interpretation 12/01/21 12:06 Rheumatoid Factor < 15.0 IU/mL (<15.0) 12/01/21 12:06 RIO Screen NEGATIVE (NEGATIVE) 12/01/21 12:06 RIO Titer TNP 12/01/21 12:06 RIO Titer 2 TNP 12/01/21 12:06 RIO Titer 3 TNP 12/01/21 12:06 RIO Pattern TNP 12/01/21 12:06 RIO Pattern 2 TNP 12/01/21 12:06 RIO Pattern 3 TNP 12/01/21 12:06 Hep Bs Antigen Negative (Negative) 12/01/21 12:06 Hep Bs Antibody NONREACTIVE (Nonreactive) 12/01/21 12:06 Hep B Core Total Ab Nonreactive (Nonreactive) 12/01/21 12:06 Hepatitis C Ab (EIA) Nonreactive (Nonreactive) 12/01/21 12:06 HIV 1&2 Ab/P24 Ag 4thGn Nonreactive (Nonreactive) 12/01/21 12:06 Assessment and Plan Patient Active problem list reviewed?: Yes (1) Pancytopenia Status: Acute Assessment and plan: This is a pleasant 66-year-old lady with a history of chronic pancytopenia. DIFFERENTIAL DIAGNOSIS: 1. HYPERSPLENISM FROM UNDERLYING LIVER DISEASE: She does have history of underlying hepatitis C. She has history of cirrhosis. She has splenomegaly. That explains her pancytopenia. 2. A CHRONIC INFECTION: HIV versus hepatitis. 3. B12 FOLATE DEFICIENCY: Coexisting is a possibility. 4. COLLAGEN VASCULAR DISORDER: Is in the differential. 5. UNDERLYING MYELO INFILTRATIVE DISORDER: MDS versus lymphoma versus myeloma. Not likely since he already have an explanation. I proceeded with further evaluation. Check CBCd with the peripheral smear. Checked HIV and hepatitis profile:NEGATIVE. Checked B12 and folate levels; 797, 11.9. Checked a collagen vascular profile: ESR 36. RA:<15, RIO: NEGATIVE. Checked LDH: 243 and SIEP: No monoclonal protein. She had an MRI of the abdomen 08/12/2021 which revealed: Cirrhotic liver. Evaluation of the liver is limited due to artifact from respiratory motion. Question lesion in the inferior posterior segment of the right lobe of the liver measuring 1 x 1.7 cm versus artifact due to motion and partial volume averaging with the adjacent bowel. Follow-up by CT with IV contrast according to dedicated liver phase imaging should be considered. Upper normal-size spleen. Paraesophageal and perigastric varices. No ascites. Small right renal cysts. CT abdomen from 09/08 revealed: Cirrhotic morphology of the liver. No LI RADS [address] findings to correspond to suspected MRI or sonographic lesion in the liver however given prior findings consider a 3-6 month follow-up CT or MR liver protocol. Cirrhotic-appearing liver. Question 2.5 x 1.9 x 2.4 cm hypoechoic lesion in the right lobe of the liver. Follow-up liver MRI recommended. Limited visualization of the pancreas. PLAN: Will proceed with MRI of the abdomen with liver protocol, to re-evaluate the liver lesion, that was seen, in July on MRI. Will continue to monitor her labs. She will return in 6 months for a follow-up visit. Thanks, CC: Dr. Sanchez. - Time Spent With Patient Time Spent with Patient (in minutes): 26
[2022-01-01 11:33] LABS: Basophils Percent Auto 0.3 % (0-2); Eosinophils Absolute Auto 0.2 X10*3/uL (0.0-0.4); Eosinophils Percent Auto 4.8 % (0-4); Hematocrit 34.3 % (37.0-47.0); Hemoglobin 11.3 g/dl (12.0-16.0); Imm Gran Abs Auto 0.01 X10*3/uL (0.00-0.03); Imm Gran Pct Auto 0.3 % (0.0-0.4); Lymphocytes Absolute Auto 1.2 X10*3/uL (1.2-4.9); Lymphocytes Percent Auto 32.6 % (20-40); Mean Corpuscular HGB Conc 32.9 g/dl (31.0-35.0); Mean Corpuscular Hemoglobin 31.7 pg (27.0-33.0); Mean Corpuscular Volume 96.1 fL (80.0-98.0); Mean Platelet Volume 10.8 fL (9.4-12.3); Monocytes Absolute Auto 0.6 X10*3/uL (0.1-1.2); Monocytes Percent Auto 15.6 % (2-11); Neutrophils Absolute Auto 1.6 x10*3/uL (2.0-8.3); Neutrophils Percent Auto 46.4 % (45-73); Red Blood Count 3.57 X10*6/uL (4.20-5.50); Red Cell Distribution Width 14.3 % (11.0-16.0); White Blood Count 3.5 X10*3/uL (4.8-10.8)
[2022-01-01 11:47] LABS: Platelet Count 73 X10*3/uL (160-400)
[2022-01-01 11:48] LABS: Alanine Aminotransferase 26 U/L (0-31); Albumin Level 2.7 g/dL (3.5-5.0); Alkaline Phosphatase 168 U/L (39-117); Anion Gap 12 (12-20); Aspartate Amino Transferase 75 U/L (5-31); Bilirubin Total 2.3 mg/dL (0.0-1.0); Blood Urea Nitrogen 9 mg/dL (9-16); Calcium 8.4 mg/dL (8.4-10.2); Carbon Dioxide 24 mmol/L (22-29); Chloride 108 mmol/L (96-108); Creatinine Clr Calc Pharmacy 69.9; Estimated Glomerular Filt Rate > 60; Glucose Random 162 mg/dL (60-115); Potassium 4.3 mmol/L (3.3-5.1); Sodium 140 mmol/L (135-145); Total Protein 7.4 g/dL (6.5-8.0)
--- NOTE | 2022-01-01 16:08 | MHC.HEMONCMA ---
Pt was in for follow up. Clinical summary reviewed and updated, VSS. Labs were drawn. Pt to return in 6 months.
--- NOTE | 2022-01-04 09:04 | HO.HEMONCSCH ---
MRI sent to [facility].
[2022-07-05 10:19] LABS: MANUAL DIFF FLAG NO
[2022-07-05 10:23] LABS: Basophils Percent Auto 0.3 % (0-2); Eosinophils Absolute Auto 0.1 X10*3/uL (0.0-0.4); Eosinophils Percent Auto 3.5 % (0-4); Hematocrit 35.7 % (37.0-47.0); Hemoglobin 11.9 g/dl (12.0-16.0); Imm Gran Abs Auto 0.01 X10*3/uL (0.00-0.03); Imm Gran Pct Auto 0.3 % (0.0-0.4); Lymphocytes Absolute Auto 1.1 X10*3/uL (1.2-4.9); Lymphocytes Percent Auto 34.3 % (20-40); Mean Corpuscular HGB Conc 33.3 g/dl (31.0-35.0); Mean Corpuscular Hemoglobin 32.2 pg (27.0-33.0); Mean Corpuscular Volume 96.5 fL (80.0-98.0); Mean Platelet Volume 11.5 fL (9.4-12.3); Monocytes Absolute Auto 0.4 X10*3/uL (0.1-1.2); Monocytes Percent Auto 12.1 % (2-11); Neutrophils Absolute Auto 1.6 x10*3/uL (2.0-8.3); Neutrophils Percent Auto 49.5 % (45-73); Red Cell Distribution Width 14.4 % (11.0-16.0); White Blood Count 3.2 X10*3/uL (4.8-10.8)
[2022-07-05 10:24] VITALS: BP 161/72; PULSE 88; RESP 15; TEMP 36.6; O2SAT 99; BMI 46.8
[2022-07-05 10:30] LABS: Platelet Count 58 X10*3/uL (160-400)
[2022-07-05 10:46] LABS: Alanine Aminotransferase 27 U/L (0-31); Albumin Level 2.8 g/dL (3.5-5.0); Alkaline Phosphatase 139 U/L (39-117); Anion Gap 13 (12-20); Aspartate Amino Transferase 64 U/L (5-31); Blood Urea Nitrogen 12 mg/dL (9-16); Calcium 9.3 mg/dL (8.4-10.2); Carbon Dioxide 26 mmol/L (22-29); Chloride 105 mmol/L (96-108); Creatinine Clr Calc Pharmacy 68.5; Estimated Glomerular Filt Rate > 60; Glucose Random 189 mg/dL (60-115); Potassium 4.5 mmol/L (3.3-5.1); Sodium 139 mmol/L (135-145); Total Protein 7.6 g/dL (6.5-8.0)
--- NOTE | 2022-07-05 10:48 | PM.HEMONCPN ---
Medical Summary - Medical Summary Date of Service: 07/05/22 Chief complaint: Follow-up for: Pancytopenia. Medical Summary: DIAGNOSIS: PANCYTOPENIA. Interval History Interval history: Meena Epstein is a pleasant 67 year old lady, here for a follow-up visit. She has been feeling really well. She has good energy level. No fever chills no night sweats. No headache no dizziness. Denies chest pain or trouble breathing. Denies abdominal pain nausea vomiting heartburn indigestion. Bowels are working without any gross blood in it. Appetite is regular. She denies weight loss. It does fluctuate somewhat. Denies dysuria or hematuria. She complains of pain in her left shoulder. She has a muscle strain. Denies any focal weakness. She has history of depression. Presenting history: She was referred by Dr. Sanchez, for a chronic pancytopenia. CBC from 11/18: WBC 3.2, HGB 10.7, HCT 32.7, MCV 95.1, PLT 85. Peripheral smear from 11/11/2021: Normochromic normocytic anemia: Occasional targets. WBCs are reduced in number and comprised of normal constant joints. Platelets are reduced in number. No significant large or giant forms identified. Serial WBCs over the past few months: 08/14: 4.0, 11/10/21: 3.7, 11/11: 2.4, 11/12: 2.7. Serial hemoglobin over the past few months: 08/14: 12.6, 11/09/21: 10.7, 11/12: 10.3. Serial platelets over the past few months: 08/14: 89, 11/10/21: 54, 11/12: 59. Ultrasound of the abdomen from 05/19/2021: Cirrhotic-appearing liver. Question 2.5 x 1.9 x 2.4 cm hypoechoic lesion in the right lobe of the liver. Follow-up liver MRI recommended. Limited visualization of the pancreas. MRI of the abdomen from 08/12: Cirrhotic liver. Evaluation of the liver is limited due to artifact from respiratory motion. Question lesion in the inferior posterior segment of the right lobe of the liver measuring 1 x 1.7 cm versus artifact due to motion and partial volume averaging with the adjacent bowel. Follow-up by CT with IV contrast according to dedicated liver phase imaging should be considered. Upper normal-size spleen. Paraesophageal and perigastric varices. No ascites. Small right renal cysts. CT scan of the abdomen from 09/08: Cirrhotic morphology of the liver. No LI RADS [address] findings to correspond to suspected MRI or sonographic lesion in the liver however given prior findings consider a 3-6 month follow-up CT or MR liver protocol. Mild hydroureteronephrosis. No obstructing stone visualized however the pelvis was not imaged. Recommend correlation with clinical symptoms and if any clinical concern for obstructing stone a CT stone protocol could be obtained. Sequelae of portal hypertension including large periesophageal and perigastric varices. FAMILY HISTORY: She does not know her family too well. SOCIAL HISTORY: She worked in [employer]. She is . Had 7 of her own children and 2 more that she raised. She denies smoking nor alcohol use. She has some spots on her upper arms that are chronic. Review of Systems - Constitutional Reports no additional constitutional complaints, Reports weight gain, Denies weight loss - Eyes Reports no additional eye complaints - ENT Reports no additional ear, nose, mouth, and throat complaints - Cardiovascular Reports no additional cardiovascular complaints - Respiratory Reports no additional respiratory complaints - Gastrointestinal Reports no additional gastrointestinal complaints - Genitourinary Reports no additional female genitourinary complaints - Musculoskeletal Reports no additional musculoskeletal complaints - Integumentary/Breasts Skin/Breast: Reports no additional skin complaints - Neurologic Reports no additional neurologic complaints - Psychiatric Reports no additional psychiatric complaints - Endocrine Reports no additional endocrine complaints - Hematologic/Lymphatic Reports no additional hematologic/lymphatic complaints - Allergic/Immunologic Reports no additional allergic/immunologic complaints [facility] Medical History: Medical History (Last Reviewed 07/05/22 @ 10:27 by Aicha Moyer) Anemia Cirrhosis Diabetes Hx of hepatitis C Hypertension Hyperthyroidism Parkinson disease Severe sepsis Thrombocytopenia Functional capacity: uses cane/walker Patient : No Family History: Family History (Last Reviewed 07/05/22 @ 10:27 by Aicha Moyer) Daughter Diabetes Daughter Diabetes Brother HTN (hypertension) Surgical History: Surgical History (Last Reviewed 07/05/22 @ 10:27 by Aicha Moyer) H/O colonoscopy History of cholecystectomy History of cystoscopy History of esophagogastroduodenoscopy (EGD) History of tonsillectomy History of tubal ligation Hx of lithotripsy Social History: Social History (Last Reviewed 07/05/22 @ 10:27 by Aicha Moyer) Living Situation History: Household Members: Family Household Members: Children Housing: House Are you a primary manager progressive care to a significant other at home: No Do you presently have visiting nurse or other home services: Yes Do you presently have visiting nurse or other home services comment: every month Alcohol History: Unable to assess alcohol history related to: Unknown Alcohol History Details: 1. How often do you have a drink containing alcohol?: a. Never Tobacco History: Patient Tobacco Use Status: Never used Tobacco Second Hand Smoke Exposure: No Substance Use History: Use of substances other than those prescribed or required for medical reasons: No Domestic Abuse History: Have you been hit, kicked, punched, or otherwise hurt by someone within the past year? If so, by whom?: No Advance Directives: Advance Directives Date on File: 04/25/20 Homicidal Assessment: Do you have thoughts of harming others: None Do you have a plan to hurt others: No Plan Do you have the means to hurt others: No Nutrition Assessment: Recently lost weight without trying: No Patient : No Occupation Assessmet: service: No Current occupational status: disabled Oncology Screenings - ECOG Performance Status ECOG Performance Status: 0 Home Medications and Allergies Home Medications Medication Instructions Recorded Confirmed Type acarbose 25 mg tablet 50 mg PO TIDWMEAL 04/21/20 07/05/22 History atorvastatin 20 mg tablet 20 mg PO BEDTIME 04/21/20 07/05/22 History carbidopa 25 mg-levodopa 100 mg 1 tab PO TID 04/21/20 07/05/22 History tablet furosemide 20 mg tablet 20 mg PO DAILY 04/21/20 07/05/22 History gabapentin 300 mg capsule 300 mg PO TID 04/21/20 07/05/22 History glipizide 10 mg tablet 5 mg PO BIDAC 04/21/20 07/05/22 History levothyroxine 75 mcg tablet 75 mcg PO DAILY 04/21/20 07/05/22 History linagliptin 2.5 mg-metformin 1,000 1 tab PO BIDWM 04/21/20 07/05/22 History mg tablet (Jentadueto) omeprazole 20 mg capsule,delayed 20 mg PO DAILY 04/21/20 07/05/22 History release albuterol sulfate 90 mcg/actuation 2 puff inhalation Q4-6H PRN 11/09/21 07/05/22 History aerosol inhaler (Ventolin HFA) Shortness Of Breath alendronate 70 mg tablet (Fosamax) 1 tab PO SINCLAIR@0600 11/09/21 07/05/22 History calcium carbonate 500 mg-vitamin 1 tab QAM 11/09/21 07/05/22 History D3 10 mcg (400 unit) tablet (Oyster Shell Calcium-Vitamin D3) acetaminophen 650 mg 650 mg PO Q8H PRN Pain 12/01/21 07/05/22 History tablet,extended release melatonin 5 mg tablet 5 mg PO BEDTIME PRN Sleep 12/01/21 07/05/22 History lisinopril 20 mg tablet 20 mg PO DAILY 07/05/22 07/05/22 History Allergies Allergy/AdvReac Type Severity Reaction Status Date / Time aspirin [ASPIRIN] Allergy Intermediate HIVES Verified 07/05/22 10:28 Penicillins [PCN] Allergy Intermediate HIVES Verified 07/05/22 10:28 Exam Vital signs: Vital Signs Temp 97.8 F 07/05/22 10:24 Pulse 88 07/05/22 10:24 Resp 15 07/05/22 10:24 BP 161/72 H 07/05/22 10:24 Pulse Ox 99 07/05/22 10:24 O2 Del Method 07/05/22 10:24 Intake & Output 07/04/22 07/05/22 07/05/22 18:59 06:59 18:59 Other: Weight 84.9 kg [place] Weight in Grams [id number] Weight 84.9 kg BMI result Body Mass Index 46.8 - Constitutional Present: no acute distress - Routine HEENT Exam Head: Present: normal inspection Eye: Present: normal appearance ENT: Present: mucous membranes moist - Routine Neck Exam Present: full ROM - Routine Respiratory Exam Present: CTAB - Routine Cardiovascular Exam Cardiovascular: Present: RRR, S1 - Routine Abdominal Exam Present: soft, nontender. Absent: organomegaly - Routine Rectal Exam Patient deferred: digital exam - Routine Extremities Exam Present: nontender - Routine Back/Spine/Pelvis Exam Back/Spine: Present: full ROM - Routine Skin Exam Present: intact - Routine Neurological Exam Present: alert, oriented X3 - Routine Psychiatric Exam Present: normal affect Data - Labs CBC & Chem 7: 07/05/22 10:15 07/05/22 10:15 Assessment and Plan Patient Active problem list reviewed?: Yes (1) Pancytopenia Status: Acute Assessment and plan: This is a pleasant 67 year-old lady with a history of chronic pancytopenia. DIFFERENTIAL DIAGNOSIS: 1. HYPERSPLENISM FROM UNDERLYING LIVER DISEASE: She does have history of underlying hepatitis C. She has history of cirrhosis. She has splenomegaly. That explains her pancytopenia. 2. A CHRONIC INFECTION: HIV versus hepatitis. 3. B12 FOLATE DEFICIENCY: Coexisting is a possibility. 4. COLLAGEN VASCULAR DISORDER: Is in the differential. 5. UNDERLYING MYELO INFILTRATIVE DISORDER: MDS versus lymphoma versus myeloma. Not likely since he already have an explanation. I proceeded with further evaluation. Check CBCd with the peripheral smear. Checked HIV and hepatitis profile:NEGATIVE. Checked B12 and folate levels; 797, 11.9. Checked a collagen vascular profile: ESR 36. RA:<15, RIO: NEGATIVE. Checked LDH: 243 and SIEP: No monoclonal protein. She had an MRI of the abdomen 08/12/2021 which revealed: Cirrhotic liver. Evaluation of the liver is limited due to artifact from respiratory motion. Question lesion in the inferior posterior segment of the right lobe of the liver measuring 1 x 1.7 cm versus artifact due to motion and partial volume averaging with the adjacent bowel. Follow-up by CT with IV contrast according to dedicated liver phase imaging should be considered. Upper normal-size spleen. Paraesophageal and perigastric varices. No ascites. Small right renal cysts. CT abdomen from 09/08 revealed: Cirrhotic morphology of the liver. No LI RADS [address] findings to correspond to suspected MRI or sonographic lesion in the liver however given prior findings consider a 3-6 month follow-up CT or MR liver protocol. Cirrhotic-appearing liver. Question 2.5 x 1.9 x 2.4 cm hypoechoic lesion in the right lobe of the liver. Follow-up liver MRI recommended. Limited visualization of the pancreas. MRI of abdomen on 01/08/22 : Cirrhotic appearing liver, no focal lesion. Small varices. This is reassuring. She is clinically doing very well. PLAN: Will continue to monitor her labs. She will be following up with GI, for scope. She will return in 6 months for a follow-up visit. Thanks, CC: Dr. Sanchez. - Time Spent With Patient Time Spent with Patient (in minutes): 25
[2022-07-05 11:13] LABS: Bilirubin Total 3.5 mg/dL (0.0-1.0)
--- NOTE | 2022-07-05 16:18 | MHC.HEMONCMA ---
Pt was in for follow up. Clinical summary reviewed and updated, VSS. Labs were drawn. Pt to return in 6 months.
[2023-01-11 11:42] VITALS: BP 131/63; PULSE 96; TEMP 36; O2SAT 99; BMI 43.5
[2023-01-11 11:44] LABS: MANUAL DIFF FLAG NO
--- NOTE | 2023-01-11 11:51 | PM.HEMONCPN ---
Medical Summary - Medical Summary Date of Service: 01/11/23 Chief complaint: Follow-up for: Pancytopenia. Primary Care Provider: Everett Ng MD Medical Summary: DIAGNOSIS: PANCYTOPENIA. Interval History Interval history: Meena Epstein is a pleasant 67 year old lady, here for a follow-up visit. She has been feeling quite well. She feels:good so far. Her energy level is good. No fever chills no night sweats. No headache no dizziness. Denies chest pain or trouble breathing. Denies abdominal pain nausea vomiting heartburn indigestion. Bowels are working without any gross blood in it. Appetite is regular. She denies weight loss. It does fluctuate somewhat. She complains of pain in her left shoulder. She has a muscle strain. Denies any focal weakness. She has history of depression. Denies dysuria or hematuria. CT of the abdomen and pelvis 11/01/22 revealed: Normal left kidney. Mild right hydronephrosis and proximal ureteral dilatation. No stone is seen. The right distal ureter is normal in caliber. She was seen by Urology on 01/05. Note from Dominique: Kevan is a very pleasant [place]-speaking 67-year-old pt. of Dr. Daniel Ng who was accompanied by her son-in-law at today's visit. She has a past medical history of lower extremity edema, obesity, nephrolithiasis, alcoholic cirrhosis of liver without ascites, leukopenia, pancytopenia, and hep C test positive. She presents to the office today for follow-up of her hydronephrosis. Of note, patient was previously seen by Dr. Parkinson in the past for her longstanding history of nephrolithiasis. It appears she underwent surgical procedure for right-sided uterine stone in 2019. At which time recommendations were made for a 4 week follow-up with imaging to be completed prior. In discussion with the patient and her son-in-law today she reports having had recent imaging with her docent coordinator and most recent CT noted mild right hydronephrosis thus her follow up here today. In review of patient's chart it appears abdominal ultrasound 10/20/22-Right Kidney: There is mild hydroureteronephrosis. A 1.2 cm simple cyst is seen in the lower pole. No hydronephrosis or renal calculi. CT of the abdomen and pelvis 11/01/22--normal left kidney. Mild right hydronephrosis and proximal ureteral dilatation. No stone is seen. The right distal ureter is normal in caliber. These results were reviewed with the patient today. Discussed at length potential causes for hydroureteronephrosis/hydronephrosis. Discussed surveillance monitoring verses further workup. Discussed risks and benefits of both interventions. When asked patient denies incontinence, nocturia, hematuria, dysuria, foul smelling urine, changes to urinary stream, flank pain, fever, and or chills. She does however report urinary frequency and urgency however relates this to her Lasix. When asked she is otherwise happy with her current voiding parameters. In office urinalysis results reviewed with the patient today. PVR 11 mL. Presenting history: She was referred by Dr. Sanchez, for a chronic pancytopenia. CBC from 11/18: WBC 3.2, HGB 10.7, HCT 32.7, MCV 95.1, PLT 85. Peripheral smear from 11/11/2021: Normochromic normocytic anemia: Occasional targets. WBCs are reduced in number and comprised of normal constant joints. Platelets are reduced in number. No significant large or giant forms identified. Serial WBCs over the past few months: 08/14: 4.0, 11/10/21: 3.7, 11/11: 2.4, 11/12: 2.7. Serial hemoglobin over the past few months: 08/14: 12.6, 11/09/21: 10.7, 11/12: 10.3. Serial platelets over the past few months: 08/14: 89, 11/10/21: 54, 11/12: 59. Ultrasound of the abdomen from 05/19/2021: Cirrhotic-appearing liver. Question 2.5 x 1.9 x 2.4 cm hypoechoic lesion in the right lobe of the liver. Follow-up liver MRI recommended. Limited visualization of the pancreas. MRI of the abdomen from 08/12: Cirrhotic liver. Evaluation of the liver is limited due to artifact from respiratory motion. Question lesion in the inferior posterior segment of the right lobe of the liver measuring 1 x 1.7 cm versus artifact due to motion and partial volume averaging with the adjacent bowel. Follow-up by CT with IV contrast according to dedicated liver phase imaging should be considered. Upper normal-size spleen. Paraesophageal and perigastric varices. No ascites. Small right renal cysts. CT scan of the abdomen from 09/08: Cirrhotic morphology of the liver. No LI RADS [address] findings to correspond to suspected MRI or sonographic lesion in the liver however given prior findings consider a 3-6 month follow-up CT or MR liver protocol. Mild hydroureteronephrosis. No obstructing stone visualized however the pelvis was not imaged. Recommend correlation with clinical symptoms and if any clinical concern for obstructing stone a CT stone protocol could be obtained. Sequelae of portal hypertension including large periesophageal and perigastric varices. FAMILY HISTORY: She does not know her family too well. SOCIAL HISTORY: She worked in [employer]. She is . Had 7 of her own children and 2 more that she raised. She denies smoking nor alcohol use. She has some spots on her upper arms that are chronic. Review of Systems - Constitutional Reports no additional constitutional complaints, Denies lack of energy, Denies weight loss - Eyes Reports no additional eye complaints - ENT Reports no additional ear, nose, mouth, and throat complaints - Cardiovascular Reports no additional cardiovascular complaints - Respiratory Reports no additional respiratory complaints - Gastrointestinal Reports no additional gastrointestinal complaints - Genitourinary Reports no additional female genitourinary complaints - Musculoskeletal Reports no additional musculoskeletal complaints - Integumentary/Breasts Skin/Breast: Reports no additional skin complaints - Neurologic Reports no additional neurologic complaints - Psychiatric Reports no additional psychiatric complaints - Endocrine Reports no additional endocrine complaints - Hematologic/Lymphatic Reports no additional hematologic/lymphatic complaints - Allergic/Immunologic Reports no additional allergic/immunologic complaints [facility] Medical History: Medical History (Last Reviewed 01/11/23 @ 11:45 by Gerald Villegas) Anemia Cirrhosis Diabetes Hx of hepatitis C Hypertension Hyperthyroidism Parkinson disease Severe sepsis Thrombocytopenia Functional capacity: uses cane/walker Patient : No Family History: Family History (Last Reviewed 01/11/23 @ 11:45 by Gerald Villegas) Daughter Diabetes Daughter Diabetes Brother HTN (hypertension) Surgical History: Surgical History (Last Reviewed 01/11/23 @ 11:45 by Gerald Villegas) H/O colonoscopy History of cholecystectomy History of cystoscopy History of esophagogastroduodenoscopy (EGD) History of tonsillectomy History of tubal ligation Hx of lithotripsy Social History: Social History (Last Reviewed 01/11/23 @ 11:45 by Gerald Villegas) Living Situation History: Household Members: Family Household Members: Children Housing: House Are you a primary pharmacy customer care specialist to a significant other at home: No Do you presently have visiting nurse or other home services: Yes Do you presently have visiting nurse or other home services comment: every month Alcohol History: Unable to assess alcohol history related to: Unknown Alcohol History Details: 1. How often do you have a drink containing alcohol?: a. Never Tobacco History: Patient Tobacco Use Status: Never used Tobacco Second Hand Smoke Exposure: No Substance Use History: Use of substances other than those prescribed or required for medical reasons: No Domestic Abuse History: Have you been hit, kicked, punched, or otherwise hurt by someone within the past year? If so, by whom?: No Advance Directives: Advance Directives Date on File: 04/25/20 Homicidal Assessment: Do you have thoughts of harming others: None Do you have a plan to hurt others: No Plan Do you have the means to hurt others: No Nutrition Assessment: Recently lost weight without trying: No Patient : No Occupation Assessmet: service: No Current occupational status: disabled Oncology Screenings - ECOG Performance Status ECOG Performance Status: 0 Home Medications and Allergies Home Medications Medication Instructions Recorded Confirmed Type atorvastatin 20 mg tablet 20 mg PO BEDTIME 04/21/20 01/11/23 History carbidopa 25 mg-levodopa 100 mg 1 tab PO TID 04/21/20 01/11/23 History tablet gabapentin 300 mg capsule 300 mg PO TID 04/21/20 01/11/23 History levothyroxine 75 mcg tablet 75 mcg PO DAILY 04/21/20 01/11/23 History linagliptin 2.5 mg-metformin 1,000 1 tab PO BIDWM 04/21/20 01/11/23 History mg tablet (Jentadueto) omeprazole 20 mg capsule,delayed 20 mg PO DAILY 04/21/20 01/11/23 History release albuterol sulfate 90 mcg/actuation 2 puff inhalation Q4-6H PRN 11/09/21 01/11/23 History aerosol inhaler (Ventolin HFA) Shortness Of Breath alendronate 70 mg tablet (Fosamax) 1 tab PO SINCLAIR@0600 11/09/21 01/11/23 History calcium carbonate 500 mg-vitamin 1 tab PO QAM 11/09/21 01/11/23 History D3 10 mcg (400 unit) tablet (Oyster Shell Calcium-Vitamin D3) acetaminophen 650 mg 650 mg PO Q8H PRN Pain 12/01/21 01/11/23 History tablet,extended release melatonin 5 mg tablet 5 mg PO BEDTIME PRN Sleep 12/01/21 01/11/23 History lisinopril 20 mg tablet 20 mg PO DAILY 07/05/22 01/11/23 History acarbose 50 mg tablet 50 mg PO DAILY 09/16/22 01/11/23 History ammonium lactate 12 % topical cream 12 appl topical DAILY 09/16/22 01/11/23 History montelukast 10 mg tablet 10 mg PO DAILY 09/16/22 01/11/23 History trazodone 50 mg tablet 50 mg PO BEDTIME 01/05/23 01/11/23 History Allergies Allergy/AdvReac Type Severity Reaction Status Date / Time aspirin [ASPIRIN] Allergy Intermediate HIVES Verified 01/11/23 11:45 Penicillins [PCN] Allergy Intermediate HIVES Verified 01/11/23 11:45 Exam Vital signs: Vital Signs Temp 96.8 F 01/11/23 11:42 Pulse 96 01/11/23 11:42 Resp 15 07/05/22 10:24 BP 131/63 01/11/23 11:42 Pulse Ox 99 01/11/23 11:42 O2 Del Method Room Air 01/11/23 11:42 Intake & Output 01/10/23 01/11/23 01/11/23 18:59 06:59 18:59 Other: Weight 78.9 kg Ovalo Weight in Grams [id number] Weight 78.9 kg BMI result Body Mass Index 43.5 - Constitutional Present: no acute distress - Routine HEENT Exam Head: Present: normal inspection Eye: Present: normal appearance ENT: Present: mucous membranes moist - Routine Neck Exam Present: full ROM - Routine Respiratory Exam Present: CTAB - Routine Cardiovascular Exam Cardiovascular: Present: RRR, S1 - Routine Abdominal Exam Present: soft, nontender. Absent: organomegaly - Routine Rectal Exam Patient deferred: digital exam - Routine Extremities Exam Present: nontender - Routine Back/Spine/Pelvis Exam Back/Spine: Present: full ROM - Routine Skin Exam Present: intact - Routine Neurological Exam Present: alert, oriented X3 - Routine Psychiatric Exam Present: normal affect Data - Labs CBC & Chem 7: 01/11/23 11:42 01/11/23 11:42 Assessment and Plan Patient Active problem list reviewed?: Yes (1) Pancytopenia Status: Acute Assessment and plan: This is a pleasant 67 year-old lady with a history of chronic pancytopenia. DIFFERENTIAL DIAGNOSIS: 1. HYPERSPLENISM FROM UNDERLYING LIVER DISEASE: She does have history of underlying hepatitis C. She has history of cirrhosis. She has splenomegaly. That explains her pancytopenia. 2. A CHRONIC INFECTION: HIV versus hepatitis. 3. B12 FOLATE DEFICIENCY: Coexisting is a possibility. 4. COLLAGEN VASCULAR DISORDER: Is in the differential. 5. UNDERLYING MYELO INFILTRATIVE DISORDER: MDS versus lymphoma versus myeloma. Not likely since he already have an explanation. I proceeded with further evaluation. Check CBCd with the peripheral smear. Checked HIV and hepatitis profile:NEGATIVE. Checked B12 and folate levels; 797, 11.9. Checked a collagen vascular profile: ESR 36. RA:<15, RIO: NEGATIVE. Checked LDH: 243 and SIEP: No monoclonal protein. She had an MRI of the abdomen 08/12/2021 which revealed: Cirrhotic liver. Evaluation of the liver is limited due to artifact from respiratory motion. Question lesion in the inferior posterior segment of the right lobe of the liver measuring 1 x 1.7 cm versus artifact due to motion and partial volume averaging with the adjacent bowel. Follow-up by CT with IV contrast according to dedicated liver phase imaging should be considered. Upper normal-size spleen. Paraesophageal and perigastric varices. No ascites. Small right renal cysts. CT abdomen from 09/08 revealed: Cirrhotic morphology of the liver. No LI RADS [address] findings to correspond to suspected MRI or sonographic lesion in the liver however given prior findings consider a 3-6 month follow-up CT or MR liver protocol. Cirrhotic-appearing liver. Question 2.5 x 1.9 x 2.4 cm hypoechoic lesion in the right lobe of the liver. Follow-up liver MRI recommended. Limited visualization of the pancreas. MRI of abdomen on 01/08/22 : Cirrhotic appearing liver, no focal lesion. Small varices. CT scan of the abdomen from 11/01 revealed: Limited exam due to motion artifact. Dilated fluid-filled small bowel and distal small bowel wall thickening wall thickening. Findings are suggestive of enteritis. Mild cirrhotic-appearing liver. Small amount of ascites. This is reassuring. She is clinically doing very well. She is being followed by Urology for her hydronephrosis. PLAN: She is being scheduled for a renal scan. She will be following up with GI, for cirrhosis related to hep C. She will be due for her colonoscopy in April of 2023. I will let her continue to follow with her consultants, since she is being followed so closely. Will happy to follow her if there are any questions or concerns in the future. I wish her the best of luck. Thanks, CC: Dr. Sanchez. Matos. Braun. - Time Spent With Patient Time Spent with Patient (in minutes): 25
[2023-01-11 12:07] LABS: Basophils Percent Auto 0.6 % (0-2); Eosinophils Absolute Auto 0.1 X10*3/uL (0.0-0.4); Eosinophils Percent Auto 2.5 % (0-4); Hematocrit 34.5 % (37.0-47.0); Hemoglobin 11.1 g/dl (12.0-16.0); Imm Gran Abs Auto 0.01 X10*3/uL (0.00-0.03); Imm Gran Pct Auto 0.3 % (0.0-0.4); Lymphocytes Absolute Auto 0.9 X10*3/uL (1.2-4.9); Lymphocytes Percent Auto 29.8 % (20-40); Mean Corpuscular HGB Conc 32.2 g/dl (31.0-35.0); Mean Corpuscular Hemoglobin 33.4 pg (27.0-33.0); Mean Corpuscular Volume 103.9 fL (80.0-98.0); Mean Platelet Volume 11.8 fL (9.4-12.3); Monocytes Absolute Auto 0.4 X10*3/uL (0.1-1.2); Monocytes Percent Auto 12.7 % (2-11); Neutrophils Absolute Auto 1.7 x10*3/uL (2.0-8.3); Neutrophils Percent Auto 54.1 % (45-73); Red Blood Count 3.32 X10*6/uL (4.20-5.50); Red Cell Distribution Width 15.1 % (11.0-16.0); White Blood Count 3.2 X10*3/uL (4.8-10.8)
[2023-01-11 12:08] LABS: Platelet Count 70 X10*3/uL (160-400)
[2023-01-11 12:45] LABS: Alanine Aminotransferase 20 U/L (0-31); Albumin Level 2.2 g/dL (3.5-5.0); Alkaline Phosphatase 159 U/L (39-117); Anion Gap 21 (12-20); Aspartate Amino Transferase 71 U/L (5-31); Bilirubin Total 5.6 mg/dL (0.0-1.0); Blood Urea Nitrogen 10 mg/dL (9-16); Calcium 9.7 mg/dL (8.4-10.2); Carbon Dioxide 22 mmol/L (22-29); Chloride 104 mmol/L (96-108); Creatinine Clr Calc Pharmacy 62.4; Estimated Glomerular Filt Rate > 60; Glucose Random 125 mg/dL (60-115); Potassium 4.5 mmol/L (3.3-5.1); Sodium 142 mmol/L (135-145); Total Protein 8.1 g/dL (6.5-8.0)
--- NOTE | 2023-01-11 13:15 | MHC.HEMONCMA ---
patient seen today for pancytopenia, vss, labs, following up with provider j luis
== END 2023-07-22 | disposition home or self-care (01) ==
LOC: HO.ONC 11:40
PROVIDERS: Internal Medicine Gastroenterology; PCP Internal Medicine; Visit Provider Internal Medicine Medical Oncology
DX: D61.818 Other pancytopenia (principal); K76.9 Liver disease, unspecified
CPT/HCPCS: 36415; 80053; 82607; 82728; 82746; 82784; 83615; 85007; 85025; 85027; 85652; 86038; 86039; 86334; 86431; 86704; 86706; 86803; 87340; 87389; 99204; 99213

== ENCOUNTER → 2023-01-17 11:11 | Outpatient (BNVA) | payer MEDICARE, MEDICAID, SELFPAY | PROVIDERS: PCP Internal Medicine; Visit Provider Dietitian, Registered | DX: E66.9 Obesity, unspecified (principal); Z68.34 Body mass index [BMI] 34.0-34.9, adult; E11.9 Type 2 diabetes mellitus without complications | CPT/HCPCS: 97803 ==

== ENCOUNTER 2023-01-24 08:32 | Inpatient (IN) | payer MEDICARE, MEDICAID, SELFPAY ==
[2023-01-24] VITALS (10 sets, daily range): BP systolic 90–111; BP diastolic 41–55; PULSE 84–100; RESP 12–18; TEMP 36.1–36.9; O2SAT 96–100; BMI 34.1
--- NOTE | 2023-01-24 12:47 | ED.GENADULT ---
HPI - General Adult General Chief complaint: General Medical Stated complaint: Dizziness/Vomiting Time Seen by Provider: 01/24/23 12:47 Source: patient, family, RN notes reviewed and old records reviewed Mode of arrival: wheelchair History of Present Illness HPI narrative: 67-year-old female with a past medical history of anemia, cirrhosis, diabetes, hepatitis-C, hypertension, hyperthyroid, Parkinson's, presenting to the ED complaining of generalized fatigue, myalgias, lightheadedness, nausea, vomiting, decreased p.o. intake x3 days. Family also reports increasing confusion. Patient reports lower extremity pain/weakness. Denies recent fall/injury or trauma, cough, CP/SOB, abdominal pain Onset (ago): day(s) Related Data Home Medications Medication Instructions Recorded Confirmed atorvastatin 20 mg tablet 20 mg PO BEDTIME 04/21/20 01/24/23 carbidopa 25 mg-levodopa 100 mg 1 tab PO TID 04/21/20 01/24/23 tablet gabapentin 300 mg capsule 300 mg PO TID 04/21/20 01/24/23 levothyroxine 75 mcg tablet 75 mcg PO DAILY 04/21/20 01/24/23 linagliptin 2.5 mg-metformin 1,000 1 tab PO BIDWM 04/21/20 01/24/23 mg tablet (Jentadueto) omeprazole 20 mg capsule,delayed 20 mg PO DAILY 04/21/20 01/24/23 release calcium carbonate 500 mg-vitamin 1 tab PO QAM 11/09/21 01/24/23 D3 10 mcg (400 unit) tablet (Oyster Shell Calcium-Vitamin D3) acetaminophen 650 mg 650 mg PO Q8H PRN Pain 12/01/21 01/24/23 tablet,extended release melatonin 5 mg tablet 5 mg PO BEDTIME 12/01/21 01/24/23 lisinopril 20 mg tablet 20 mg PO DAILY 07/05/22 01/24/23 acarbose 50 mg tablet 50 mg PO TID 09/16/22 01/24/23 montelukast 10 mg tablet 10 mg PO BEDTIME 09/16/22 01/24/23 trazodone 50 mg tablet 50 mg PO BEDTIME 01/05/23 01/24/23 furosemide 20 mg tablet 20 mg PO BID 01/24/23 01/24/23 Previous Rx's Medication Instructions Recorded lactulose 10 gram/15 mL oral 15 ml PO BID 30 days #900 mL 11/15/22 solution spironolactone 50 mg tablet 50 mg PO BID 30 days #60 tabs 12/16/22 Allergies Allergy/AdvReac Type Severity Reaction Status Date / Time aspirin [ASPIRIN] Allergy Intermediate HIVES Verified 01/11/23 11:45 Penicillins [PCN] Allergy Intermediate HIVES Verified 01/11/23 11:45 Review of Systems Review of Systems: Constitutional: No Fever, No Chills, + Fatigue, No Malaise ENT/Mouth: No Ear Pain, No Nasal Congestion, No Sinus Pain, No Hoarseness, No sore throat, No Rhinorrhea, No Swallowing Difficulty Eyes: No Eye Pain, No Swelling, No Redness, No Vision Changes Cardiovascular: No Chest Pain, No SOB, No Dyspnea on Exertion, No Orthopnea, + Edema, No Palpitations Respiratory: No Cough, No Sputum, No Dyspnea Gastrointestinal: + Nausea, + Vomiting, No Diarrhea, No Constipation, No Abdominal pain Genitourinary: No irregular bleeding, No Dysuria, No Hematuria, No Urinary Incontinence/retention, No Flank Pain Musculoskeletal: No joint pain, + Myalgias, No Joint Swelling Skin: No Skin Lesions, No rash Neuro: + Weakness, No Numbness, No Paresthesias, No Loss of Consciousness, + lightheadedness/ Dizziness, No Headache Yes all other systems are reviewed and are negative Constitutional: Constitutional: Reports as per HPI Neurologic: Denies Abnormal speech present PMFSH Past Medical History Attestation statement: The following information was validated with the patient. Source: old records reviewed Medical History Anemia Cirrhosis Diabetes Hx of hepatitis C Hypertension Hyperthyroidism Parkinson disease Severe sepsis Thrombocytopenia Surgical History H/O colonoscopy History of cholecystectomy History of cystoscopy History of esophagogastroduodenoscopy (EGD) History of tonsillectomy History of tubal ligation Hx of lithotripsy Family History Family History Daughter Diabetes Daughter Diabetes Brother HTN (hypertension) Social History Social History Household Members: Family and Children Housing: House Are you a primary healthcare management to a significant other at home: No Do you presently have visiting nurse or other home services: Yes (every month) Unable to assess alcohol history related to: Unknown Alcohol intake: never Patient Tobacco Use Status: Never used Tobacco Smoked in Last 30 Days: No Second Hand Smoke Exposure: No Use of substances other than those prescribed or required for medical reasons: No Advance Directives: No Advance Directives Information Provided: No Advance Directives Date on File: 04/25/20 service: No Current occupational status: disabled Physical Exam ED Vital Signs: Vital Signs - 24 hr 01/24/23 08:43 01/24/23 11:17 01/24/23 12:13 Temperature 97.0 F 98.5 F Pulse Rate 100 91 88 Respiratory Rate 18 17 Blood Pressure 90/49 L 98/49 L 103/49 L Pulse Oximetry 96 98 Oxygen Delivery Method Room Air Room Air 01/24/23 12:13 01/24/23 12:35 01/24/23 14:29 Temperature 98.1 F 98.1 F Pulse Rate 90 84 100 Respiratory Rate 16 16 Blood Pressure 100/42 L 96/45 L 99/45 L Pulse Oximetry 98 99 Oxygen Delivery Method Room Air Room Air BMI result Body Mass Index 34.1 Const General: cooperative and no acute distress Orientation/consciousness: patient oriented x3 Limitations: no limitations HENMT Head: Yes normal to inspection and Yes atraumatic Ears: hearing grossly normal bilaterally General nose exam: Normal external nose present Face and sinus: Yes normal facial exam Eyes General: appearance normal, both eyes and all related structures EOM: EOMs intact bilaterally Neck Neck: Yes normal visual inspection and Yes no meningeal signs Resp Effort & Inspection: normal respiratory effort and no respiratory distress Auscultation: clear to auscultation bilaterally Cardio Rate: regular rate Heart sounds: S1 normal heart sound present and S2 normal heart sound present GI Inspection: Yes normal to inspection Palpation (GI): Soft to palpation, nontender, no guarding and not rigid Back/Spine/Pelvis Other: No midline cervical/thoracic/lumbar spinous tenderness/step-off or deformity Skin Rashes: no rashes Wounds: no wounds Neuro General: patient oriented x3, tone normal, moves all extremities, no meningeal signs, no focal motor deficits and CN's II-XI intact bilaterally Cranial nerves: Yes CN's II-XII intact bilaterally and Yes Bilaterally intact EOM present Cognition (Neuro): normal cognition Speech: No Abnormal speech present Motor exam (neuro): 5/5 motor strength present throughout Extrem Other: 2+ bilateral LE pitting edema Course Course Course Narrative: -chronic leukopenia. + noted TARUN with a BUN of 50, creatinine of 5.8 (baseline Cr 0.6). Anion gap 26 -initial troponin 10.7 > will obtain 3 hour repeat -total bilirubin 5.3, chronically elevated. AST chronically elevated XR chest 1VIMPRESSION: Unremarkable examination. CT abdomen pelvis wo IV con IMPRESSION: 1.? Cirrhotic appearing liver with varicose vessels at the GE junction. No ascites. 2.? Moderate soft tissue thickening at the gastric junction likely combination of hiatal hernia, varices and mural thickening. 3.? Mild constipation. 4.? No change in the calcified vessels at the splenic hilum, question small aneurysm. 5.? Gallbladder is not visualized likely surgically removed or contracted. ? Fleischner guidelines were followed. > ammonia elevated to 81 chronically elevated will give lactulose -repeat BMP after gentle IVF with slight improvement of creatinine to 5.6. Potassium 5.5 however hemolyzed. Plan to admit for further management Medications Administered Discontinued Medications Generic Name Dose Route Start Last Admin Trade Name Freq PRN Reason Stop Dose Admin Sodium Chloride 500 mls @ 999 mls/hr 01/24/23 14:30 01/24/23 15:36 Ns IV 01/24/23 15:00 Infused .Q31M MICHAEL Infusion Sodium Chloride 250 mls @ 999 mls/hr 01/24/23 16:00 01/24/23 16:51 Ns IV 01/24/23 16:15 999 mls/hr .Q16M MICHAEL Administration Medical Decision Making Medical Decision Making [facility] Narrative: 67-year-old female with a past medical history of anemia, cirrhosis, diabetes, hepatitis-C, hypertension, hyperthyroid, Parkinson's, presenting to the ED complaining of generalized fatigue, myalgias, lightheadedness, nausea, vomiting, decreased p.o. intake x3 days. On exam mildly hypotensive, NAD, nontoxic appearing, lungs CTA, abdomen soft/nontender, bilateral LE pitting edema noted. No focal neuro deficits. Concern for metabolic/infectious etiologies vs encephalopathy vs CHF. Lower suspicion for ICH/CVA/TIA or ACS/PE or dissection. Low suspicion for severe sepsis Plan: EKG, labs, UA, CXR, gentle IVF Please refer to course for remaining clinical decision making, interpretation of labs/imaging results, and discussions with consultants and/or family members. Differential Diagnosis Differential Diagnoses: The differential diagnosis associated with the presentation includes As above Admission/Observation Consideration of admission/observation: Escalation of care including admission/observation considered Lab Data MDM Lab Attestation statement: I reviewed the patient's lab results. 01/24/23 08:56 01/24/23 11:23 Labs: Lab Results 01/24/23 01/24/23 01/24/23 Range/Units 08:56 11:23 11:23 WBC 4.6 L (4.8-10.8) X10*3/uL RBC 3.55 L (4.20-5.50) X10*6/uL Hgb 12.1 (12.0-16.0) g/dl Hct 36.2 L (37.0-47.0) % MCV 102.0 H (80.0-98.0) fL MCH 34.1 H (27.0-33.0) pg MCHC 33.4 (31.0-35.0) g/dl RDW 14.3 (11.0-16.0) % Plt Count 88 L D (160-400) X10*3/uL MPV 10.6 (9.4-12.3) fL Immature Gran % (Auto) 0.4 (0.0-0.4) % Neut % (Auto) 53.6 (45-73) % Lymph % (Auto) 27.6 (20-40) % [place] % (Auto) 12.1 H (2-11) % Eos % (Auto) 5.9 H (0-4) % Baso % (Auto) 0.4 (0-2) % Lymph # (Auto) 1.3 (1.2-4.9) X10*3/uL [place] # (Auto) 0.6 (0.1-1.2) X10*3/uL Eos # (Auto) 0.3 (0.0-0.4) X10*3/uL Baso # (Auto) 0.0 (0.0-0.2) X10*3/uL Abs Immat Gran (auto) 0.02 (0.00-0.03) X10*3/uL Absolute Neuts (auto) 2.4 (2.0-8.3) x10*3/uL Absolute Nucleated RBC 0.000 (0.0-0.012) X10*3/uL Nucleated RBC % (auto) 0.0 (0.0-0.2) /100WBC PT (10.0-13.1) SEC INR (0.9-1.1) Sodium 139 (135-145) mmol/L Potassium 4.8 (3.3-5.1) mmol/L Chloride 102 (96-108) mmol/L Carbon Dioxide 16 L (22-29) mmol/L Anion Gap 26 H (12-20) BUN 50 H (9-16) mg/dL Creatinine 5.85 H* (0.5-1.4) mg/dL Estim Creat Clear Calc 7.8 Estimated GFR 7 Random Glucose 69 (60-115) mg/dL Calcium 11.6 H D (8.4-10.2) mg/dL Magnesium 1.7 (1.6-2.6) mg/dL Total Bilirubin 5.3 H (0.0-1.0) mg/dL AST 43 H (5-31) U/L ALT 26 (0-31) U/L Alkaline Phosphatase 110 (39-117) U/L Ammonia (13-55) umol/L Total Creatine Kinase (26-140) U/L Troponin I High Sens (<3.5-17.0) ng/L B-Natriuretic Peptide (<100) pg/mL Total Protein 8.1 H (6.5-8.0) g/dL Albumin 2.2 L (3.5-5.0) g/dL Lipase 67 (8-78) U/L 01/24/23 01/24/23 01/24/23 Range/Units 15:08 15:08 15:08 WBC (4.8-10.8) X10*3/uL RBC (4.20-5.50) X10*6/uL Hgb (12.0-16.0) g/dl Hct (37.0-47.0) % MCV (80.0-98.0) fL MCH (27.0-33.0) pg MCHC (31.0-35.0) g/dl RDW (11.0-16.0) % Plt Count (160-400) X10*3/uL MPV (9.4-12.3) fL Immature Gran % (Auto) (0.0-0.4) % Neut % (Auto) (45-73) % Lymph % (Auto) (20-40) % [place] % (Auto) (2-11) % Eos % (Auto) (0-4) % Baso % (Auto) (0-2) % Lymph # (Auto) (1.2-4.9) X10*3/uL [place] # (Auto) (0.1-1.2) X10*3/uL Eos # (Auto) (0.0-0.4) X10*3/uL Baso # (Auto) (0.0-0.2) X10*3/uL Abs Immat Gran (auto) (0.00-0.03) X10*3/uL Absolute Neuts (auto) (2.0-8.3) x10*3/uL Absolute Nucleated RBC (0.0-0.012) X10*3/uL Nucleated RBC % (auto) (0.0-0.2) /100WBC PT 16.2 H (10.0-13.1) SEC INR 1.4 H (0.9-1.1) Sodium 141 (135-145) mmol/L Potassium 5.5 H (3.3-5.1) mmol/L Chloride 101 (96-108) mmol/L Carbon Dioxide 19 L (22-29) mmol/L Anion Gap 27 H (12-20) BUN 52 H (9-16) mg/dL Creatinine 5.61 H* (0.5-1.4) mg/dL Estim Creat Clear Calc 8.2 Estimated GFR 8 Random Glucose 73 (60-115) mg/dL Calcium 11.5 H (8.4-10.2) mg/dL Magnesium (1.6-2.6) mg/dL Total Bilirubin (0.0-1.0) mg/dL AST (5-31) U/L ALT (0-31) U/L Alkaline Phosphatase (39-117) U/L Ammonia (13-55) umol/L Total Creatine Kinase 67 (26-140) U/L Troponin I High Sens 10.7 (<3.5-17.0) ng/L B-Natriuretic Peptide (<100) pg/mL Total Protein (6.5-8.0) g/dL Albumin (3.5-5.0) g/dL Lipase (8-78) U/L 01/24/23 01/24/23 Range/Units 15:08 16:06 WBC (4.8-10.8) X10*3/uL RBC (4.20-5.50) X10*6/uL Hgb (12.0-16.0) g/dl Hct (37.0-47.0) % MCV (80.0-98.0) fL MCH (27.0-33.0) pg MCHC (31.0-35.0) g/dl RDW (11.0-16.0) % Plt Count (160-400) X10*3/uL MPV (9.4-12.3) fL Immature Gran % (Auto) (0.0-0.4) % Neut % (Auto) (45-73) % Lymph % (Auto) (20-40) % [place] % (Auto) (2-11) % Eos % (Auto) (0-4) % Baso % (Auto) (0-2) % Lymph # (Auto) (1.2-4.9) X10*3/uL [place] # (Auto) (0.1-1.2) X10*3/uL Eos # (Auto) (0.0-0.4) X10*3/uL Baso # (Auto) (0.0-0.2) X10*3/uL Abs Immat Gran (auto) (0.00-0.03) X10*3/uL Absolute Neuts (auto) (2.0-8.3) x10*3/uL Absolute Nucleated RBC (0.0-0.012) X10*3/uL Nucleated RBC % (auto) (0.0-0.2) /100WBC PT (10.0-13.1) SEC INR (0.9-1.1) Sodium (135-145) mmol/L Potassium (3.3-5.1) mmol/L Chloride (96-108) mmol/L Carbon Dioxide (22-29) mmol/L Anion Gap (12-20) BUN (9-16) mg/dL Creatinine (0.5-1.4) mg/dL Estim Creat Clear Calc Estimated GFR Random Glucose (60-115) mg/dL Calcium (8.4-10.2) mg/dL Magnesium (1.6-2.6) mg/dL Total Bilirubin (0.0-1.0) mg/dL AST (5-31) U/L ALT (0-31) U/L Alkaline Phosphatase (39-117) U/L Ammonia 81 H (13-55) umol/L Total Creatine Kinase (26-140) U/L Troponin I High Sens (<3.5-17.0) ng/L B-Natriuretic Peptide 73 (<100) pg/mL Total Protein (6.5-8.0) g/dL Albumin (3.5-5.0) g/dL Lipase (8-78) U/L Independent Interpretation I performed an independent interpretation of an: EKG (EKG normal sinus rhythm at a rate of 94. IL interval 132. QTC 505, prolonged QT. No STEMI) Radiology Impression Discussion of test interpretation with radiology: I have reviewed the radiologist's reading. Independent Historian Clinical information obtained from an independent historian. History obtained from or confirmed by: Other (Children) External Record Review External record reviewed: Inpatient record, Office record, Outpatient record, Prior outpatient labs, Prior outpatient radiology, Primary care record and Outside ED record Tests considered The following testing was considered but not selected: As above Chronic Conditions Patient?s care impacted by: Other (Hepatitis C, cirrhosis, obesity) Social Determinants Patient?s care significantly limited by Social Determinants of Health including: Alcoholism and drug addiction in family Discharge Plan Discharge Clinical Impression: Acute renal failure Patient Disposition: Admitted As Inpatient
--- NOTE | 2023-01-24 14:11 | PHA.MEDREC ---
Pharmacy Consult ? Medication Reconciliation Pharmacy has completed the medication reconciliation. spoke with daughter over the phone and she was able to read off the patients home medications. She reports that she is no longer taking alendronate.
--- NOTE | 2023-01-24 14:17 | PC.NURSE ---
pt/daughter at bedside aware of plan of care for admission to hosp.
--- NOTE | 2023-01-24 14:17 | PC.NURSE ---
pt has slight edema to l foot and c/o pain with palpitation.
--- NOTE | 2023-01-24 14:18 | PC.NURSE ---
pt is a/o x 4 no sob/gray noted lungs - slightly diminished. heart sounds regular. abd soft and non-tender. bx + x 4 quads.
--- NOTE | 2023-01-24 16:47 | PM.IMHP ---
History of Present Illness Date of Service: 01/24/23 Chief Complaint: confusion 67 year old women presenting to the ED with confusion, lightheadedness, nausea, vomiting and poor oral intake for 3 days. Seems like she has also had some increase in confusion. According to the patient she had an episode of vomiting on Tuesday and since then has had a very poor appetite and poor oral intake. she also had leg pain which made it more difficult for her to ambulate. She also reported not being able to take her lactulose because of the nausea and vomiting. She denied chest pain, shortness of breath, diarrhea, fever, recent illness, sick contacts. CXR negative for consolidation. ammonia [address] showing liver cirrhosis with no ascites, potassium 5.5, creatinine 5.61 with normal baseline, elevated anion gap of 27. She received 2 liters of IV fluids and lactulose. she will be admitted for further management and treatment of acute encephalopathy with TARUN and hypovolemia. Review of Systems Review of Systems: Denies any recent fever chills or decrease in appetite respiratory denies any shortness of breath coverage production cardiovascular denied chest pain gastrointestinal reported vomiting genitourinary denies any dysuria frequency or hematuria musculoskeletal reported bilateral leg pain neuropsych denies any weakness or seizures all other systems reviewed are negative [facility] Medical History Anemia Cirrhosis Diabetes Hx of hepatitis C Hypertension Hyperthyroidism Parkinson disease Severe sepsis Thrombocytopenia Family History Daughter Diabetes Daughter Diabetes Brother HTN (hypertension) Surgical History H/O colonoscopy History of cholecystectomy History of cystoscopy History of esophagogastroduodenoscopy (EGD) History of tonsillectomy History of tubal ligation Hx of lithotripsy Social History Household Members: Family and Children Housing: House Are you a primary patient care specialist to a significant other at home: No Do you presently have visiting nurse or other home services: Yes (every month) Unable to assess alcohol history related to: Unknown Alcohol intake: never Patient Tobacco Use Status: Never used Tobacco Smoked in Last 30 Days: No Second Hand Smoke Exposure: No Use of substances other than those prescribed or required for medical reasons: No Advance Directives: No Advance Directives Information Provided: No Advance Directives Date on File: 04/25/20 service: No Current occupational status: disabled Meds Allergies Allergy/AdvReac Type Severity Reaction Status Date / Time aspirin [ASPIRIN] Allergy Intermediate HIVES Verified 01/11/23 11:45 Penicillins [PCN] Allergy Intermediate HIVES Verified 01/11/23 11:45 Home Medications Medication Instructions Recorded Confirmed Last Taken Type atorvastatin 20 mg tablet 20 mg PO BEDTIME 04/21/20 01/24/23 Unknown History carbidopa 25 mg-levodopa 100 mg 1 tab PO TID 04/21/20 01/24/23 Unknown History tablet gabapentin 300 mg capsule 300 mg PO TID 04/21/20 01/24/23 Unknown History levothyroxine 75 mcg tablet 75 mcg PO DAILY 04/21/20 01/24/23 Unknown History linagliptin 2.5 mg-metformin 1,000 1 tab PO BIDWM 04/21/20 01/24/23 Unknown History mg tablet (Jentadueto) omeprazole 20 mg capsule,delayed 20 mg PO DAILY 04/21/20 01/24/23 Unknown History release calcium carbonate 500 mg-vitamin 1 tab PO QAM 11/09/21 01/24/23 Unknown History D3 10 mcg (400 unit) tablet (Oyster Shell Calcium-Vitamin D3) acetaminophen 650 mg 650 mg PO Q8H PRN Pain 12/01/21 01/24/23 Unknown History tablet,extended release melatonin 5 mg tablet 5 mg PO BEDTIME 12/01/21 01/24/23 Unknown History lisinopril 20 mg tablet 20 mg PO DAILY 07/05/22 01/24/23 Unknown History acarbose 50 mg tablet 50 mg PO TID 09/16/22 01/24/23 Unknown History montelukast 10 mg tablet 10 mg PO BEDTIME 09/16/22 01/24/23 Unknown History trazodone 50 mg tablet 50 mg PO BEDTIME 01/05/23 01/24/23 Unknown History furosemide 20 mg tablet 20 mg PO BID 01/24/23 01/24/23 Unknown History Physical Exam Vital Signs and Narrative: Vital Signs: Last Vital Signs Temp 98.1 F 01/24/23 14:29 Pulse 100 01/24/23 14:29 Resp 16 01/24/23 14:29 BP 99/45 L 01/24/23 14:29 Pulse Ox 99 01/24/23 14:29 O2 Del Method Room Air 01/24/23 14:29 BMI result Body Mass Index 34.1 Appearing in no acute distress head is normocephalic atraumatic eyes pupils are PERRLA sclera is anicteric mouth throat mucous membranes are intact and moist neck is supple no lymphadenopathy, no JVD noted lung sounds are clear to auscultation heart regular rate rhythm, clear S1, S2 positive bowel sounds, abdomen is soft, nontender neuro patient is alert x3, no focal deficits Results Labs 01/24/23 08:56 01/24/23 15:08 Labs: Laboratory Results - last 24 hr 01/24/23 01/24/23 01/24/23 08:56 11:23 11:23 MCV 102.0 H MCH 34.1 H MCHC 33.4 RDW 14.3 Plt Count 88 L D MPV 10.6 Immature Gran % (Auto) 0.4 Neut % (Auto) 53.6 Lymph % (Auto) 27.6 [place] % (Auto) 12.1 H Eos % (Auto) 5.9 H Baso % (Auto) 0.4 Lymph # (Auto) 1.3 [place] # (Auto) 0.6 Eos # (Auto) 0.3 Baso # (Auto) 0.0 Abs Immat Gran (auto) 0.02 Absolute Neuts (auto) 2.4 Absolute Nucleated RBC 0.000 Nucleated RBC % (auto) 0.0 PT INR Anion Gap 26 H Estim Creat Clear Calc 7.8 Estimated GFR 7 Random Glucose 69 Calcium 11.6 H D Magnesium 1.7 Total Bilirubin 5.3 H AST 43 H ALT 26 Alkaline Phosphatase 110 Ammonia Total Creatine Kinase Troponin I High Sens B-Natriuretic Peptide Total Protein 8.1 H Albumin 2.2 L Lipase 67 01/24/23 01/24/23 01/24/23 15:08 15:08 15:08 MCV MCH MCHC RDW Plt Count MPV Immature Gran % (Auto) Neut % (Auto) Lymph % (Auto) [place] % (Auto) Eos % (Auto) Baso % (Auto) Lymph # (Auto) [place] # (Auto) Eos # (Auto) Baso # (Auto) Abs Immat Gran (auto) Absolute Neuts (auto) Absolute Nucleated RBC Nucleated RBC % (auto) PT 16.2 H INR 1.4 H Anion Gap 27 H Estim Creat Clear Calc 8.2 Estimated GFR 8 Random Glucose 73 Calcium 11.5 H Magnesium Total Bilirubin AST ALT Alkaline Phosphatase Ammonia Total Creatine Kinase 67 Troponin I High Sens 10.7 B-Natriuretic Peptide Total Protein Albumin Lipase 01/24/23 01/24/23 15:08 16:06 MCV MCH MCHC RDW Plt Count MPV Immature Gran % (Auto) Neut % (Auto) Lymph % (Auto) [place] % (Auto) Eos % (Auto) Baso % (Auto) Lymph # (Auto) [place] # (Auto) Eos # (Auto) Baso # (Auto) Abs Immat Gran (auto) Absolute Neuts (auto) Absolute Nucleated RBC Nucleated RBC % (auto) PT INR Anion Gap Estim Creat Clear Calc Estimated GFR Random Glucose Calcium Magnesium Total Bilirubin AST ALT Alkaline Phosphatase Ammonia 81 H Total Creatine Kinase Troponin I High Sens B-Natriuretic Peptide 73 Total Protein Albumin Lipase Imaging Radiologist's Impressions: Impressions Abdomen/Pelvis CT 01/24/23 14:48 IMPRESSION: 1. Cirrhotic appearing liver with varicose vessels at the GE junction. No ascites. 2. Moderate soft tissue thickening at the gastric junction likely combination of hiatal hernia, varices and mural thickening. 3. Mild constipation. 4. No change in the calcified vessels at the splenic hilum, question small aneurysm. 5. Gallbladder is not visualized likely surgically removed or contracted. Fleischner guidelines were followed. Chest X-Ray 01/24/23 14:48 IMPRESSION: Unremarkable examination. Assessment and Plan (1) Acute renal failure: Status: Acute Plan 67 year old women admitted with acute encephalopathy secondary to cirrhosis. Symptoms started on Tuesday with an episode of vomiting and since then has had very poor appetite and poor oral intake. Acute encephalopathy in the setting of TARUN, hyperammonemia and hypovolemia treat underlying cause of hypovolemia Chest x-ray negative for consolidation UA pending follow LFT's TARUN secondary to hypovolemia in the setting of possible gastroenteritis IV fluids Nephrology consultation follow BMP closely avoid nephrotoxins Hyperammonemia history of chronic liver cirrhosis patient reports that she has not been taking her lactulose due to the nausea and vomiting episodes continue lactulose follow ammonia level Hyperkalemia Kayexalate Follow BMP Hypertension low blood pressures On lisinopril, will hold due to TARUN and hypotension Hyperbilirubemia seems chronic hx of liver cirrhosis monitor History of chronic liver cirrhosis Hold spironolactone in light of TARUN and hypotension Parkinsons disease continue home medications Hypothyroidism Continue levothyroxine GERD Continue PPI Hyperlipidemia Hold statin for now DVT prophylaxis with pneumatic compression boots Full code patient requires 2 inpatient midnights for treatment of acute encephalopathy, hypovolemia and TARUN requiring specialty consultation Time Spent With Patient Time: Total time managing care of this patient today ____ minutes. Quality Stroke Does the patient have a stroke diagnosis?: No VTE Prior VTE?: No VTE Risk Level:: Medical - moderate - high VTE Device Contraindication: N/A - Device Ordered VTE Drug Contraindication: Treatment Not Indicated
--- NOTE | 2023-01-24 17:41 | MHC.EDTECH ---
Put patient on a bedpan. Patient voided and collected urine for specimen when needed.
--- NOTE | 2023-01-24 18:34 | PC.NURSE ---
rn to rn report given to rico. pt/family aware of plan of care for admission
[2023-01-25 00:05] VITALS: BP 96/42
[2023-01-25 04:00] VITALS: BP 101/64; PULSE 83; RESP 16; TEMP 37.1; O2SAT 96
[2023-01-25 07:43] VITALS: BP 130/65; PULSE 80; RESP 20; TEMP 36.4; O2SAT 99
--- NOTE | 2023-01-25 08:48 | HO.PM.IMPN ---
Subjective Subjective Date of Service: 01/25/23 Review of Systems Follow up TARUN, encephalopathy Feeling better today no pain Physical Exam Vital Signs: Vital Signs: Last Vital Signs Temp 97.5 F 01/25/23 07:43 Pulse 80 01/25/23 07:43 Resp 20 01/25/23 07:43 BP 130/65 01/25/23 07:43 Pulse Ox 99 01/25/23 07:43 O2 Del Method Room Air 01/25/23 07:43 BMI result Body Mass Index 34.1 Appearing in no acute distress lung sounds are clear to auscultation heart regular rate rhythm, clear S1, S2 positive bowel sounds, abdomen is soft, nontender neuro patient is alert x3, no focal deficits Objective Data Active Medications Acetaminophen (Acetaminophen 325 Mg Tablet) 650 mg PO Q6H PRN PRN Reason: Pain, Mild (Pain Scale 1-3) Calcium Carbonate/Cholecalciferol (Calcium + Vitamin D 250 Mg Tablet) 250 mg PO DAILY [facility] Last Admin: 01/24/23 18:19 Dose: 250 mg Documented By: YOANDY Carbidopa/Levodopa (Carbidopa/Levodopa 25/100 Tablet) 1 tab PO TID [facility] Last Admin: 01/24/23 20:46 Dose: 1 tab Documented By: SHASHA Dextrose (Dextrose 50 % 25 Gm/50 Ml Syringe) 25 gm IVPUSH Q15M PRN; Protocol PRN Reason: per Hypoglycemia Standing Ord. Glucose (Glucose Gel 15 Gm Gel..Gram.) 15 gm PO Q15M PRN; Protocol PRN Reason: per Hypoglycemia Standing Ord. Sodium Chloride (Ns) 1,000 mls @ 80 mls/hr IVCONT .[id number] [facility] Last Admin: 01/25/23 06:41 Dose: Not Given Documented By: SHASHA Non-Admin Reason: IV Running Albumin Human (Kedbumin 25 %) 100 mls @ 100 mls/hr IV Q6H [facility] Stop: 01/25/23 13:29 Last Infusion: 01/25/23 08:00 Dose: 0 mls/hr Documented By: ANDREI Insulin Human Lispro (Insulin Lispro 100 Unit/Ml 3 Ml Vial) 0 unit SUBCUT QIDACHS [facility]; Protocol Last Admin: 01/25/23 07:59 Dose: Not Given Documented By: ANDREI Non-Admin Reason: No Insulin Coverage Lactulose (Lactulose 20 Gm/30 Ml Solution) 20 gm PO TID [facility] Levothyroxine Sodium (Levothyroxine Sodium 75 Mcg Tablet) 75 mcg PO DAILY [facility] Melatonin (Melatonin 3 Mg Tablet) 6 mg PO BEDTIME [facility] Last Admin: 01/24/23 20:46 Dose: 6 mg Documented By: SHASHA Montelukast Sodium (Montelukast Sodium 10 Mg Tablet) 10 mg PO BEDTIME [facility] Last Admin: 01/24/23 20:46 Dose: 10 mg Documented By: SHASHA Omeprazole (Omeprazole 20 Mg Capsule.Dr) 20 mg PO DAILY [facility] Ondansetron HCl (Ondansetron Hcl 4 Mg/2 Ml Vial) 4 mg IVPUSH Q8H PRN PRN Reason: Nausea and Vomiting Sodium Chloride (0.9 % Sodium Chloride Flush 3 Ml Syringe) 3 ml IVFLUSH QSHIFT [facility] Last Admin: 01/25/23 08:00 Dose: Not Given Documented By: ANDREI Non-Admin Reason: IV Running Trazodone HCl (Trazodone Hcl 50 Mg Tablet) 50 mg PO BEDTIME [facility] Last Admin: 01/24/23 20:46 Dose: 50 mg Documented By: SHASHA Labs 01/25/23 06:30 01/25/23 06:30 Labs: Laboratory Results - last 24 hr 01/24/23 01/24/23 01/24/23 08:56 11:23 11:23 MCV 102.0 H MCH 34.1 H MCHC 33.4 RDW 14.3 Plt Count 88 L D MPV 10.6 Immature Gran % (Auto) 0.4 Neut % (Auto) 53.6 Lymph % (Auto) 27.6 [place] % (Auto) 12.1 H Eos % (Auto) 5.9 H Baso % (Auto) 0.4 Lymph # (Auto) 1.3 [place] # (Auto) 0.6 Eos # (Auto) 0.3 Baso # (Auto) 0.0 Abs Immat Gran (auto) 0.02 Absolute Neuts (auto) 2.4 Absolute Nucleated RBC 0.000 Nucleated RBC % (auto) 0.0 PT INR VBG pH VBG pCO2 VBG pO2 VBG HCO3 VBG O2 Saturation VBG Base Excess Anion Gap 26 H Estim Creat Clear Calc 7.8 Estimated GFR 7 POC Glucose Random Glucose 69 Calcium 11.6 H D Magnesium 1.7 Total Bilirubin 5.3 H AST 43 H ALT 26 Alkaline Phosphatase 110 Ammonia Total Creatine Kinase Troponin I High Sens B-Natriuretic Peptide Total Protein 8.1 H Albumin 2.2 L Lipase 67 Urine Color Urine Appearance Urine pH Ur Specific [place] Urine Protein Urine Glucose (UA) Urine Ketones Urine Blood Urine Nitrite Ur Leukocyte Esterase Urine RBC Urine WBC Ur Squamous Epith Cells Urine Bacteria Hyaline Casts 01/24/23 01/24/23 01/24/23 15:08 15:08 15:08 MCV MCH MCHC RDW Plt Count MPV Immature Gran % (Auto) Neut % (Auto) Lymph % (Auto) [place] % (Auto) Eos % (Auto) Baso % (Auto) Lymph # (Auto) [place] # (Auto) Eos # (Auto) Baso # (Auto) Abs Immat Gran (auto) Absolute Neuts (auto) Absolute Nucleated RBC Nucleated RBC % (auto) PT 16.2 H INR 1.4 H VBG pH VBG pCO2 VBG pO2 VBG HCO3 VBG O2 Saturation VBG Base Excess Anion Gap 27 H Estim Creat Clear Calc 8.2 Estimated GFR 8 POC Glucose Random Glucose 73 Calcium 11.5 H Magnesium Total Bilirubin AST ALT Alkaline Phosphatase Ammonia Total Creatine Kinase 67 Troponin I High Sens 10.7 B-Natriuretic Peptide Total Protein Albumin Lipase Urine Color Urine Appearance Urine pH Ur Specific [place] Urine Protein Urine Glucose (UA) Urine Ketones Urine Blood Urine Nitrite Ur Leukocyte Esterase Urine RBC Urine WBC Ur Squamous Epith Cells Urine Bacteria Hyaline Casts 01/24/23 01/24/23 01/24/23 15:08 16:06 18:37 MCV MCH MCHC RDW Plt Count MPV Immature Gran % (Auto) Neut % (Auto) Lymph % (Auto) [place] % (Auto) Eos % (Auto) Baso % (Auto) Lymph # (Auto) [place] # (Auto) Eos # (Auto) Baso # (Auto) Abs Immat Gran (auto) Absolute Neuts (auto) Absolute Nucleated RBC Nucleated RBC % (auto) PT INR VBG pH VBG pCO2 VBG pO2 VBG HCO3 VBG O2 Saturation VBG Base Excess Anion Gap Estim Creat Clear Calc Estimated GFR POC Glucose Random Glucose Calcium Magnesium Total Bilirubin AST ALT Alkaline Phosphatase Ammonia 81 H Total Creatine Kinase Troponin I High Sens 10.4 B-Natriuretic Peptide 73 Total Protein Albumin Lipase Urine Color Urine Appearance Urine pH Ur Specific [place] Urine Protein Urine Glucose (UA) Urine Ketones Urine Blood Urine Nitrite Ur Leukocyte Esterase Urine RBC Urine WBC Ur Squamous Epith Cells Urine Bacteria Hyaline Casts 01/24/23 01/24/23 01/24/23 18:37 18:39 19:59 MCV MCH MCHC RDW Plt Count MPV Immature Gran % (Auto) Neut % (Auto) Lymph % (Auto) [place] % (Auto) Eos % (Auto) Baso % (Auto) Lymph # (Auto) [place] # (Auto) Eos # (Auto) Baso # (Auto) Abs Immat Gran (auto) Absolute Neuts (auto) Absolute Nucleated RBC Nucleated RBC % (auto) PT INR VBG pH 7.47 H VBG pCO2 34 VBG pO2 47 VBG HCO3 24 VBG O2 Saturation 74.0 VBG Base Excess 1.7 Anion Gap Cancelled 23 H Estim Creat Clear Calc Cancelled 9.5 Estimated GFR Cancelled 9 POC Glucose Random Glucose Cancelled 80 Calcium Cancelled 10.7 H D Magnesium Total Bilirubin AST ALT Alkaline Phosphatase Ammonia Total Creatine Kinase Troponin I High Sens B-Natriuretic Peptide Total Protein Albumin Lipase Urine Color Urine Appearance Urine pH Ur Specific [place] Urine Protein Urine Glucose (UA) Urine Ketones Urine Blood Urine Nitrite Ur Leukocyte Esterase Urine RBC Urine WBC Ur Squamous Epith Cells Urine Bacteria Hyaline Casts 01/24/23 01/25/23 01/25/23 20:44 06:21 06:30 MCV 101.4 H MCH 34.3 H MCHC 33.8 RDW 14.4 Plt Count 57 L D MPV 10.6 Immature Gran % (Auto) Neut % (Auto) Lymph % (Auto) [place] % (Auto) Eos % (Auto) Baso % (Auto) Lymph # (Auto) [place] # (Auto) Eos # (Auto) Baso # (Auto) Abs Immat Gran (auto) Absolute Neuts (auto) Absolute Nucleated RBC 0.000 Nucleated RBC % (auto) 0.0 PT INR VBG pH VBG pCO2 VBG pO2 VBG HCO3 VBG O2 Saturation VBG Base Excess Anion Gap Estim Creat Clear Calc Estimated GFR POC Glucose 86 Random Glucose Calcium Magnesium Total Bilirubin AST ALT Alkaline Phosphatase Ammonia Total Creatine Kinase Troponin I High Sens B-Natriuretic Peptide Total Protein Albumin Lipase Urine Color Yellow Urine Appearance Clear Urine pH 5.5 Ur Specific [place] 1.010 Urine Protein Negative Urine Glucose (UA) Negative Urine Ketones Negative Urine Blood Negative Urine Nitrite Negative Ur Leukocyte Esterase Trace H Urine RBC 0-2 Urine WBC 0-5 Ur Squamous Epith Cells 0-2 Urine Bacteria Trace Hyaline Casts 0-2 01/25/23 01/25/23 01/25/23 06:30 06:30 06:30 MCV MCH MCHC RDW Plt Count MPV Immature Gran % (Auto) Neut % (Auto) Lymph % (Auto) [place] % (Auto) Eos % (Auto) Baso % (Auto) Lymph # (Auto) [place] # (Auto) Eos # (Auto) Baso # (Auto) Abs Immat Gran (auto) Absolute Neuts (auto) Absolute Nucleated RBC Nucleated RBC % (auto) PT INR VBG pH VBG pCO2 VBG pO2 VBG HCO3 VBG O2 Saturation VBG Base Excess Anion Gap 18 Estim Creat Clear Calc 12.8 Estimated GFR 13 POC Glucose Random Glucose 87 Calcium 10.4 H Magnesium 1.7 Total Bilirubin 5.1 H AST 35 H ALT 10 Alkaline Phosphatase 74 Ammonia 101 H Total Creatine Kinase Troponin I High Sens B-Natriuretic Peptide Total Protein 7.5 Albumin 2.9 L Lipase Urine Color Urine Appearance Urine pH Ur Specific [place] Urine Protein Urine Glucose (UA) Urine Ketones Urine Blood Urine Nitrite Ur Leukocyte Esterase Urine RBC Urine WBC Ur Squamous Epith Cells Urine Bacteria Hyaline Casts 01/25/23 07:46 MCV MCH MCHC RDW Plt Count MPV Immature Gran % (Auto) Neut % (Auto) Lymph % (Auto) [place] % (Auto) Eos % (Auto) Baso % (Auto) Lymph # (Auto) [place] # (Auto) Eos # (Auto) Baso # (Auto) Abs Immat Gran (auto) Absolute Neuts (auto) Absolute Nucleated RBC Nucleated RBC % (auto) PT INR VBG pH VBG pCO2 VBG pO2 VBG HCO3 VBG O2 Saturation VBG Base Excess Anion Gap Estim Creat Clear Calc Estimated GFR POC Glucose 90 Random Glucose Calcium Magnesium Total Bilirubin AST ALT Alkaline Phosphatase Ammonia Total Creatine Kinase Troponin I High Sens B-Natriuretic Peptide Total Protein Albumin Lipase Urine Color Urine Appearance Urine pH Ur Specific [place] Urine Protein Urine Glucose (UA) Urine Ketones Urine Blood Urine Nitrite Ur Leukocyte Esterase Urine RBC Urine WBC Ur Squamous Epith Cells Urine Bacteria Hyaline Casts Assessment and Plan (1) Acute renal failure: Status: Acute Plan 67 year old women admitted with acute encephalopathy secondary to cirrhosis.? Symptoms started on Tuesday with an episode of vomiting and since then has had very poor appetite and poor oral intake. Acute encephalopathy? in the setting of TARUN, hyperammonemia and hypovolemia. Resolved continue to treat underlying cause of hypovolemia Chest x-ray negative for consolidation UA neg LFT's trending down TARUN. creatinine Trending down secondary to hypovolemia in the setting of possible gastroenteritis IV fluids, ns @80 Nephrology consultation follow BMP closely avoid nephrotoxins Hyperammonemia history of chronic liver cirrhosis patient reports that she has not been taking her lactulose due to the nausea and vomiting episodes ammonia up to 101, continue lactulose, increase to 20g TID no encephalopathy Hyperkalemia Kayexalate Follow BMP Hypertension with hypotension IV fluids, albumin Q6h x4 On lisinopril, will hold due to TARUN and hypotension Hyperbilirubemia chronic hx of liver cirrhosis monitor History of chronic liver cirrhosis Hold spironolactone in light of TARUN and?hypotension Parkinsons disease continue home medications Hypothyroidism Continue levothyroxine GERD Continue PPI Hyperlipidemia Hold statin for now DVT prophylaxis with pneumatic compression boots Full code continued hopsital stay for treatment of acute encephalopathy, hypovolemia and TARUN requiring specialty consultation Time Spent With Patient Time: Total time managing care of this patient today ____ minutes. Quality Stroke Does the patient have a stroke diagnosis?: No VTE Prior VTE?: No VTE Risk Level:: Medical - moderate - high VTE Device Contraindication: N/A - Device Ordered VTE Drug Contraindication: Treatment Not Indicated
--- NOTE | 2023-01-25 11:14 | MHC.CM.PN ---
IMM 01/25/23 DELIVERED TO BEDSIDE AND PLAED IN CHART, CM MET W/PT VIA FLAME CUTTING SUPERVISOR, PT REPORTS SHE LIVES W/DTR AND ASHLEY, PT REOPRTS DTR MARCIA ASSISTS PT W/ALL NEEDS, PT USES A CANE AND HAS A MONTHLY NURSE FROM [facility], PT VERIFIES PCP IS NIKOS HARRIS, SALMA VACCX2 AND PT WOULD LIKE TO COMPLETE A HCP PRIOR TO D/C. MAN D/C HOME W/RESUMP OF FAMILY SUPPORT AND [facility] FOR MONTHLY [facility], FAMILY FOR TRANSPORT.
[2023-01-25 11:43] VITALS: BP 122/65; PULSE 87; RESP 20; TEMP 36.3; O2SAT 97
[2023-01-25 16:00] VITALS: BP 117/58; PULSE 82; RESP 14; TEMP 36.2; O2SAT 98
[2023-01-25 20:00] VITALS: BP 129/60; PULSE 87; RESP 14; TEMP 36.3; O2SAT 99
[2023-01-26] VITALS (7 sets, daily range): BP systolic 103–121; BP diastolic 50–58; PULSE 75–90; RESP 16–20; TEMP 36.1–36.6; O2SAT 95–99
--- NOTE | 2023-01-26 11:24 | PM.EVENT ---
Event Note Date of Service: 01/26/23 Event Note: Pt seen and examined Full consult to follow Urine studies IVF Cr is better NO [place] on CT Hold diuiretics Time Spent With Patient Time: Total time managing care of this patient today ____ minutes.
--- NOTE | 2023-01-26 15:01 | HO.PM.IMPN ---
Subjective Subjective Date of Service: 01/26/23 Interval History: Patient seen and evaluated this morning at bedside. Patient is Mauritian-speaking only, transmission line engineer services utilized Patient complains of bilateral lower calf pain and difficulty walking that has been ongoing for the past month Patient otherwise not experiencing any pain Says she has been urinating a lot lately States has been drinking normally, but not eating much lately No lower leg edema Review of Systems Bilateral lower leg pain x1 month Anorexia Polyuria Denies chest pain/pressure, palpitations No difficulty breathing Denies fever, chills, nausea, vomiting, abdominal pain Review of Systems: Yes all other systems are reviewed and are negative Physical Exam Vital Signs: Vital Signs: Last Vital Signs Temp 97.1 F 01/26/23 11:22 Pulse 75 01/26/23 11:22 Resp 20 01/26/23 11:22 BP 121/55 L 01/26/23 11:22 Pulse Ox 98 01/26/23 11:22 O2 Del Method Room Air 01/26/23 11:22 BMI result Body Mass Index 34.1 General: AOx3, no acute distress Resp: CTA bilaterally CVS: S1, S2, RRR GI: +BS, NT, no distention Skin: No rash Neuro: Cranial nerves II-XII grossly intact bilaterally. Motor grossly intact bilaterally Extremities: No lower leg or ankle edema. Lower leg tenderness bilateral. Psych: Appropriate affect Objective Data Active Medications Acetaminophen (Acetaminophen 325 Mg Tablet) 650 mg PO Q6H PRN PRN Reason: Pain, Mild (Pain Scale 1-3) Calcium Carbonate/Cholecalciferol (Calcium + Vitamin D 250 Mg Tablet) 250 mg PO DAILY [facility] Last Admin: 01/26/23 08:22 Dose: 250 mg Documented By: PASCUAL Carbidopa/Levodopa (Carbidopa/Levodopa 25/100 Tablet) 1 tab PO TID [facility] Last Admin: 01/26/23 08:22 Dose: 1 tab Documented By: PASCUAL Dextrose (Dextrose 50 % 25 Gm/50 Ml Syringe) 25 gm IVPUSH Q15M PRN; Protocol PRN Reason: per Hypoglycemia Standing Ord. Glucose (Glucose Gel 15 Gm Gel..Gram.) 15 gm PO Q15M PRN; Protocol PRN Reason: per Hypoglycemia Standing Ord. Insulin Human Lispro (Insulin Lispro 100 Unit/Ml 3 Ml Vial) 0 unit SUBCUT QIDACHS [facility]; Protocol Last Admin: 01/26/23 11:47 Dose: 2 unit Documented By: CRISTIAN Lactulose (Lactulose 20 Gm/30 Ml Solution) 20 gm PO TID [facility] Last Admin: 01/26/23 08:23 Dose: 20 gm Documented By: PASCUAL Levothyroxine Sodium (Levothyroxine Sodium 75 Mcg Tablet) 75 mcg PO DAILY [facility] Last Admin: 01/26/23 08:22 Dose: 75 mcg Documented By: PASCUAL Melatonin (Melatonin 3 Mg Tablet) 6 mg PO BEDTIME [facility] Last Admin: 01/25/23 20:11 Dose: 6 mg Documented By: ALOK Montelukast Sodium (Montelukast Sodium 10 Mg Tablet) 10 mg PO BEDTIME [facility] Last Admin: 01/25/23 20:11 Dose: 10 mg Documented By: ALOK Omeprazole (Omeprazole 20 Mg Capsule.Dr) 20 mg PO DAILY [facility] Last Admin: 01/26/23 08:23 Dose: 20 mg Documented By: PASCUAL Ondansetron HCl (Ondansetron Hcl 4 Mg/2 Ml Vial) 4 mg IVPUSH Q8H PRN PRN Reason: Nausea and Vomiting Sodium Chloride (0.9 % Sodium Chloride Flush 3 Ml Syringe) 3 ml IVFLUSH QSHIFT [facility] Last Admin: 01/26/23 08:25 Dose: Not Given Documented By: PASCUAL Non-Admin Reason: IV Running Trazodone HCl (Trazodone Hcl 50 Mg Tablet) 50 mg PO BEDTIME [facility] Last Admin: 01/25/23 20:11 Dose: 50 mg Documented By: ALOK Labs 01/26/23 09:41 01/26/23 09:41 Labs: Laboratory Results - last 24 hr 01/25/23 01/25/23 01/26/23 16:15 20:23 07:10 MCV MCH MCHC RDW Plt Count MPV Absolute Nucleated RBC Nucleated RBC % (auto) Anion Gap Estim Creat Clear Calc Estimated GFR POC Glucose 197 H 190 H 138 H Random Glucose Calcium 01/26/23 01/26/23 01/26/23 09:41 09:41 11:12 MCV 102.9 H MCH 34.6 H MCHC 33.7 RDW 14.1 Plt Count 42 L D MPV 12.4 H Absolute Nucleated RBC 0.000 Nucleated RBC % (auto) 0.0 Anion Gap 14 Estim Creat Clear Calc 24.4 Estimated GFR 27 POC Glucose 197 H Random Glucose 236 H Calcium 10.0 Microbiology Microbiology Results: Microbiology 01/25/23 06:21 Urine Culture - Final Urine clean catch - Urine rojas top Assessment and Plan (1) Acute renal failure: Status: Acute Plan 67 year old women admitted with acute encephalopathy secondary to cirrhosis.? Symptoms started on Tuesday with an episode of vomiting and since then has had very poor appetite and poor oral intake. Acute encephalopathy? in the setting of TARUN, hyperammonemia and hypovolemia. Resolved Continue to treat underlying cause of hypovolemia Chest x-ray negative for consolidation UA neg LFT's trending down TARUN. creatinine Trending down Patient's creatinine 5.85 at time presentation on 01/24/2023, now 1.88 Secondary to hypovolemia likely secondary to diuretics Patient was recently started on 11/15/2022 on Lasix 20 mg b.i.d. and spironolactone 50 mg qd for bilateral ankle swelling On 12/16/2022 diuretics were increased to Lasix 40 mg b.i.d. and spironolactone 50 mg b.i.d. Patient was treated with IV fluids, ns @80 Hold IVF for now d/t hypernatremia, improving creatinine Hold all diuretics Nephrology consultation Follow BMP closely Avoid nephrotoxins Bilateral lower leg pain Patient complains of bilateral calf pain x1 month No lower leg edema noted on examination Will get ultrasound to rule out DVT Hyperammonemia History of chronic liver cirrhosis Patient reports that she has not been taking her lactulose due to the nausea and vomiting episodes Ammonia up to 101, continue lactulose, increase to 20g TID Currently no encephalopathy Hyperkalemia Kayexalate Follow BMP Hypertension with hypotension IV fluids, albumin Q6h x4 On lisinopril, will hold due to TARUN and hypotension Hyperbilirubemia Chronic Hx of liver cirrhosis Monitor History of chronic liver cirrhosis Hold spironolactone in light of TARUN and?hypotension Parkinsons disease Continue home medications Hypothyroidism Continue levothyroxine GERD Continue PPI Hyperlipidemia Hold statin for now DVT prophylaxis with pneumatic compression boots Full code Continued hospital stay for treatment of acute hypovolemia and TARUN requiring specialty consultation Time Spent With Patient Time: Total time managing care of this patient today ____ minutes. Quality Stroke Does the patient have a stroke diagnosis?: No VTE Prior VTE?: No VTE Risk Level:: Medical - moderate - high VTE Device Contraindication: N/A - Device Ordered VTE Drug Contraindication: Treatment Not Indicated
--- NOTE | 2023-01-26 15:35 | PC.NURSE ---
report received from overnight RN, multimedia services manager per SEP. pt c/o discomfort at IV site, IV discontinued and new site established. Family at bedside. Safety precautions in place, call hagan within reach. This RN reviewed all documentation / med administration of GUSTAVO Mejia and approved before submission.
[2023-01-27 03:40] VITALS: BP 120/56; PULSE 82; RESP 18; TEMP 36; O2SAT 97
[2023-01-27 07:33] VITALS: BP 144/64; PULSE 83; RESP 20; TEMP 36.6; O2SAT 98
[2023-01-27 10:57] VITALS: BP 117/59; PULSE 82; RESP 20; TEMP 36.8; O2SAT 99
--- NOTE | 2023-01-27 13:33 | PM.PNNEP ---
Subjective Subjective Date of Service: 01/27/23 Interval history: Patient seen and evaluated this morning at bedside Feels better Physical Exam Vital Signs: Vital Signs: Last Vital Signs Temp 98.2 F 01/27/23 10:57 Pulse 82 01/27/23 10:57 Resp 20 01/27/23 10:57 BP 117/59 L 01/27/23 10:57 Pulse Ox 99 01/27/23 10:57 O2 Del Method Room Air 01/27/23 10:57 BMI result Body Mass Index 34.1 General: AOx3, no acute distress Resp: CTA bilaterally CVS: S1, S2, RRR GI: +BS, NT, no distention Skin: No rash Neuro: Cranial nerves II-XII grossly intact bilaterally. Motor grossly intact bilaterally Extremities: No lower leg or ankle edema. Lower leg tenderness bilateral. Psych: Appropriate affect Objective Data Labs 01/26/23 09:41 01/27/23 08:17 Labs: Laboratory Results - last 24 hr 01/26/23 01/26/23 01/27/23 15:46 20:19 07:06 Sodium Potassium Chloride Carbon Dioxide Anion Gap BUN Creatinine Estim Creat Clear Calc Estimated GFR POC Glucose 232 H 172 H 97 Random Glucose Calcium 01/27/23 01/27/23 08:17 10:56 Sodium 143 Potassium 3.6 Chloride 110 H Carbon Dioxide 24 Anion Gap 13 BUN 16 Creatinine 1.14 Estim Creat Clear Calc 40.3 Estimated GFR 47 POC Glucose 221 H Random Glucose 140 H Calcium 8.7 D Microbiology Microbiology Results: Microbiology 01/25/23 06:21 Urine clean catch - Urine rojas top Urine Culture - Final Procedures Date of Service Date of Service: 01/27/23 Assessment & Plan Assessment and plan (1) Acute renal failure: Status: Acute Assessment and Plan: Dionna is better Can restart Aldactone 25 mg BID Bumex 0.5 mg daily Will sig off d/w Medical team (2) Cirrhosis: Status: Acute Time Spent With Patient Time: Total time managing care of this patient today ____ minutes. Progress Note: Quality Stroke Does the patient have a stroke diagnosis?: No
--- NOTE | 2023-01-27 13:41 | HO.PM.IMPN ---
Subjective Subjective Date of Service: 01/27/23 Interval History: seen and examined this morning follow up for TARUN history obtained with daughter at bedside no overnight events feeling well this am, tolerating diet. no specific complaints Review of Systems Review of Systems: Yes all other systems are reviewed and are negative Constitutional Constitutional: Denies chills and Denies fever(s) ENT Ears, Nose, Mouth, and Throat: Denies dizziness Cardiovascular Cardiovascular: Denies chest pain and Denies dyspnea Respiratory Respiratory: Denies dyspnea Gastrointestinal Gastrointestinal: Denies abdominal pain Neurologic Neurologic: Denies dizziness Physical Exam Vital Signs: Vital Signs: Last Vital Signs Temp 98.2 F 01/27/23 10:57 Pulse 82 01/27/23 10:57 Resp 20 01/27/23 10:57 BP 117/59 L 01/27/23 10:57 Pulse Ox 99 01/27/23 10:57 O2 Del Method Room Air 01/27/23 10:57 BMI result Body Mass Index 34.1 Const: General: cooperative, comfortable, alert and awake Nutritional Appearance: overweight Resp: Effort & Inspection: normal respiratory effort, no respiratory distress and no use of accessory muscles Auscultation: clear to auscultation bilaterally Cardio: Rate: regular rate Heart sounds: S1 normal heart sound present and S2 normal heart sound present GI: Inspection: No distended Palpation (GI): Soft to palpation and nontender Neuro: General: moves all extremities and CN's II-XI intact bilaterally Extrem: General: Yes no pedal edema Objective Data Active Medications Acetaminophen (Acetaminophen 325 Mg Tablet) 650 mg PO Q6H PRN PRN Reason: Pain, Mild (Pain Scale 1-3) Calcium Carbonate/Cholecalciferol (Calcium + Vitamin D 250 Mg Tablet) 250 mg PO DAILY [facility] Last Admin: 01/27/23 09:24 Dose: 250 mg Documented By: SINGH Carbidopa/Levodopa (Carbidopa/Levodopa 25/100 Tablet) 1 tab PO TID [facility] Last Admin: 01/27/23 09:24 Dose: 1 tab Documented By: SINGH Dextrose (Dextrose 50 % 25 Gm/50 Ml Syringe) 25 gm IVPUSH Q15M PRN; Protocol PRN Reason: per Hypoglycemia Standing Ord. Glucose (Glucose Gel 15 Gm Gel..Gram.) 15 gm PO Q15M PRN; Protocol PRN Reason: per Hypoglycemia Standing Ord. Insulin Human Lispro (Insulin Lispro 100 Unit/Ml 3 Ml Vial) 0 unit SUBCUT QIDACHS [facility]; Protocol Last Admin: 01/27/23 11:31 Dose: 4 unit Documented By: SINGH Lactulose (Lactulose 20 Gm/30 Ml Solution) 20 gm PO TID [facility] Last Admin: 01/27/23 09:24 Dose: 20 gm Documented By: SINGH Levothyroxine Sodium (Levothyroxine Sodium 75 Mcg Tablet) 75 mcg PO DAILY [facility] Last Admin: 01/27/23 09:24 Dose: 75 mcg Documented By: SINGH Melatonin (Melatonin 3 Mg Tablet) 6 mg PO BEDTIME [facility] Last Admin: 01/26/23 21:08 Dose: 6 mg Documented By: BLESSING Montelukast Sodium (Montelukast Sodium 10 Mg Tablet) 10 mg PO BEDTIME [facility] Last Admin: 01/26/23 21:08 Dose: 10 mg Documented By: BLESSING Omeprazole (Omeprazole 20 Mg Capsule.Dr) 20 mg PO DAILY [facility] Last Admin: 01/27/23 09:24 Dose: 20 mg Documented By: SINGH Ondansetron HCl (Ondansetron Hcl 4 Mg/2 Ml Vial) 4 mg IVPUSH Q8H PRN PRN Reason: Nausea and Vomiting Sodium Chloride (0.9 % Sodium Chloride Flush 3 Ml Syringe) 3 ml IVFLUSH QSHIFT [facility] Last Admin: 01/27/23 09:24 Dose: 3 ml Documented By: SINGH Trazodone HCl (Trazodone Hcl 50 Mg Tablet) 50 mg PO BEDTIME [facility] Last Admin: 01/26/23 21:08 Dose: 50 mg Documented By: BLESSING Labs 01/26/23 09:41 01/27/23 08:17 Labs: Laboratory Results - last 24 hr 01/26/23 01/26/23 01/27/23 15:46 20:19 07:06 Anion Gap Estim Creat Clear Calc Estimated GFR POC Glucose 232 H 172 H 97 Random Glucose Calcium 01/27/23 01/27/23 08:17 10:56 Anion Gap 13 Estim Creat Clear Calc 40.3 Estimated GFR 47 POC Glucose 221 H Random Glucose 140 H Calcium 8.7 D Assessment and Plan (1) Acute renal failure: Status: Acute Plan 67 year old women admitted with acute encephalopathy and TARUN Acute toxic metabolic encephalopathy related TARUN, hyperammonemia and hypovolemia. Resolved Continue to treat underlying cause of hypovolemia Chest x-ray negative for consolidation UA neg LFT's trending down TARUN. creatinine trending down SCr 5.85 on admission, now 1.14 likely secondary to diuretics Hold all diuretics Nephrology following, recs appreciated Avoid nephrotoxins Bilateral lower leg pain Patient complains of bilateral calf pain x1 month No lower leg edema noted on examination US negative for DVT Hyperammonemia History of chronic liver cirrhosis Patient reports that she has not been taking her lactulose due to the nausea and vomiting episodes Ammonia up to 101, continue lactulose, increase to 20g TID Currently no encephalopathy Hyperkalemia resolved with Kayexalate Hypertension with hypotension lisinopril on hold for TARUN Hyperbilirubemia Chronic Hx of liver cirrhosis History of chronic liver cirrhosis Hold spironolactone, lasix for TARUN - likely discharge with reduced doses Parkinsons disease Continue home medications Hypothyroidism Continue levothyroxine GERD Continue PPI Hyperlipidemia Hold statin for now DVT prophylaxis with pneumatic compression boots Full code attending - dr. reis dispo - PT eval for safe dispo Continued hospital stay for treatment of acute hypovolemia and TARUN requiring specialty consultation, safe disposition Time Spent With Patient Time: Total time managing care of this patient today ____ minutes. Quality Stroke Does the patient have a stroke diagnosis?: No VTE Prior VTE?: No VTE Risk Level:: Medical - moderate - high VTE Device Contraindication: N/A - Device Ordered VTE Drug Contraindication: Treatment Not Indicated
--- NOTE | 2023-01-27 14:51 | PM.DS ---
DS: Providers Provider Date of Service: 01/27/23 Date of admission: 01/24/23 17:32 Date of discharge: 01/27/23 Primary care physician: Everett Ng MD Consults: 01/26/23 08:43 Consult to Nephrology Routine Consulting Provider: Nehemiah Marte Reason for consultation: Acute kidney failure Attending physician on discharge: Francis Ohara Discharging clinician: Radha Byrnes DS: Diagnosis Discharge Diagnosis (1) Acute renal failure: Status: Acute DS: Summary Hospital Course Hospital Course: From H&P on day of admission 67 year old women presenting to the ED with confusion, lightheadedness, nausea, vomiting and poor oral intake? for 3 days. Seems like she has also had some increase in confusion. ? According to the patient she had an episode of vomiting on Tuesday and since then has had a very poor appetite and poor oral intake. ? she also had leg pain which made it more difficult for her to ambulate.? She also reported not being able to take her lactulose because of the nausea and vomiting. She denied chest pain, shortness of breath, diarrhea, fever, recent illness, sick contacts. CXR negative for consolidation.? ammonia [address] showing liver cirrhosis with no ascites, potassium 5.5, creatinine 5.61 with normal baseline, elevated anion gap of 27. She received 2 liters of IV fluids and lactulose.? she will be admitted for further management and treatment of acute encephalopathy with TARUN and hypovolemia Acute toxic metabolic encephalopathy. multifactorial and?related to TARUN, hyperammonemia and hypovolemia. Resolved and back to baseline. no evidence of infection TARUN. Patient's creatinine 5.85 at time presentation on 01/24/2023. Secondary to hypovolemia likely secondary to use of diuretics and several days of vomiting and decreased oral intake. CT scan on admission showed no evidence of obstruction. vomiting has resolved. diuretics were held initially and she was treated with IVF. Renal function has improved to 1.14 on day of discharge. She was evaluated by Nephrology during hospitalization and recommended to decrease dose of Aldactone to 25 mg b.i.d.. Lasix will be stopped and will be replaced with Bumex 0.5 mg daily. Lisinopril has been discontinued. Blood pressure has remained controlled. Recommend outpatient follow-up for blood pressure and renal function. No further inpatient workup required. Hyperammonemia. History of chronic liver cirrhosis. Patient reports that she has not been taking her lactulose due to the nausea and vomiting episodes. Initially dose of lactulose was increased during hospitalization. Patient having multiple bowel movements daily. encephalopathy has resolved. Will resume previous daily dose of lactulose. Hyperkalemia. resolved with dose of kayexalate Patient was evaluated by Physical therapy who recommended home with home services. Should be discharged home with home physical therapy and visiting nurses. Time Spent with Patient Time attestation: Total time managing care of this patient today ____ minutes. Discharge coordination time: Greater than 30 minutes Quality: Safe Use of Opioids Does Pt have an Active Cancer Diagnosis on the Problem List?: No Quality: Stroke Does the patient have a stroke diagnosis?: No Physical Exam Vital Signs: Vital Signs: Last Vital Signs Temp 98.2 F 01/27/23 10:57 Pulse 82 01/27/23 10:57 Resp 20 01/27/23 10:57 BP 117/59 L 01/27/23 10:57 Pulse Ox 99 01/27/23 10:57 O2 Del Method Room Air 01/27/23 10:57 BMI result Body Mass Index 34.1 Const: General: cooperative, comfortable, no acute distress, alert, awake and acute distress Nutritional Appearance: overweight Orientation/consciousness: patient oriented x3 Resp: Effort & Inspection: normal respiratory effort, able to speak in complete sentences, no respiratory distress and no use of accessory muscles Auscultation: clear to auscultation bilaterally Cardio: Rate: regular rate Heart sounds: S1 normal heart sound present and S2 normal heart sound present GI: Inspection: No distended Palpation (GI): Soft to palpation and nontender Neuro: General: patient oriented x3, moves all extremities and CN's II-XI intact bilaterally Extrem: General: Yes no pedal edema DS: Data Data Completed and Pending Labs on day of discharge: Laboratory Results - last 24 hr 01/26/23 01/26/23 01/27/23 15:46 20:19 07:06 Sodium Potassium Chloride Carbon Dioxide Anion Gap BUN Creatinine Estim Creat Clear Calc Estimated GFR POC Glucose 232 H 172 H 97 Random Glucose Calcium 01/27/23 01/27/23 08:17 10:56 Sodium 143 Potassium 3.6 Chloride 110 H Carbon Dioxide 24 Anion Gap 13 BUN 16 Creatinine 1.14 Estim Creat Clear Calc 40.3 Estimated GFR 47 POC Glucose 221 H Random Glucose 140 H Calcium 8.7 D Discharge Plan Discharge Anticipated Discharge Date/Time: 01/27/23 14:50 Patient Disposition: Home Health Service Discharge Diagnosis: TARUN Acute toxic metabolic encephalopathy Elevated ammonia levels Referrals: Everett Henning MD [Primary Care Provider] - 1 Week Discharge Medications: New spironolactone [Aldactone] 25 mg tablet 25 mg PO BID 30 Days Qty: 60 0RF bumetanide 0.5 mg tablet 0.5 mg PO DAILY 30 Days Qty: 30 0RF Continued atorvastatin 20 mg tablet 20 mg PO BEDTIME levothyroxine 75 mcg tablet 75 mcg PO DAILY gabapentin 300 mg capsule 300 mg PO TID omeprazole 20 mg capsule,delayed release(DR/EC) 20 mg PO DAILY carbidopa-levodopa 25-100 mg tablet 1 tab PO TID Jentadueto 2.5-1,000 mg tablet 1 tab PO BIDWM calcium carbonate-vitamin D3 [Oyster Shell Calcium-Vit D3] 500 mg-10 mcg (400 unit) tablet 1 tab PO QAM acetaminophen 650 mg Tablet Extended Release 650 mg PO Q8H PRN (Reason: Pain) melatonin 5 mg Tablet 5 mg PO BEDTIME montelukast 10 mg tablet 10 mg PO BEDTIME acarbose 50 mg tablet 50 mg PO TID lactulose 10 gram/15 mL solution 15 ml PO BID 30 Days Qty: 900 4RF trazodone 50 mg tablet 50 mg PO BEDTIME Discontinued lisinopril 20 mg Tablet 20 mg PO DAILY furosemide 20 mg tablet 20 mg PO BID spironolactone 50 mg tablet 50 mg PO BID 30 Days Qty: 60 3RF Discharge Orders: Discharge Order (Routine); Ordered 01/27/23 Ordered By: Radha Byrnes Activity on Discharge: As tolerated Stand Alone Forms: Patient Portal Discharge page Care Plan Goals: See below Health Concerns: acute kidney injury - resolved elevated ammonia confusion - resolved Plan of Treatment: Stop taking lisinopril stop taking lasix - this has been replaced with Bumex 0.5 mg daily Dose of Aldactone has been decreased to 25 mg twice daily continue taking normal dose of lactulose, if confusion or no BM call PCP to increase dose you will be discharged home with visiting nurses and home physical therapy Assessment: See discharge summary
--- NOTE | 2023-01-27 15:00 | W.MHC.F2F ---
Service Date Service Date: 01/27/23 Encounter Date of encounter: 01/27/23 Reasons for Services Signs and symptoms assessed: requires residential for medication management due to multiple medication changes, assessment of vital signs Reason for residential: medication management Reason for physical therapy: home safety and mobility and therapeutic exercises Overseeing Care: Everett Ng Homebound: Leaving the home is medically contraindicated at this time without the asist of a device and/or another person due th the listed conditions above and below. Reason homebound: unsteady gait / fall risk Certification: Based on the above findings, I certify that this patient is confined to the home and needs intermittent residential care, physical therapy and/or speech therapy, or continues to need occupational therapy. The patient is under my care, and I have initiated the establishment of the plan of care. The patient will be followed by a physician who will periodically review the plan of care. Time Spent With Patient Time: Total time managing care of this patient today ____ minutes.
--- NOTE | 2023-01-27 16:03 | MHC.CM.PN ---
PT MEDICALLY CLEARED FOR D/C HOME W/NEW COMFORT PLUS VNA FOR SN/PT AND RESUMP OF PASSEN[employer] REPRESENTATIVE HRS THROUGH [id number].
== END 2023-01-27 16:01 | disposition home health service (06) | DRG 682 ==
LOC: HO.ED 16:12 → HO.EDOVER 17:37 → HO.IMC 17:53
PROVIDERS: Admitting Provider Nurse Practitioner Acute Care; Emergency Provider Emergency Medicine Emergency Medical Services; PCP Internal Medicine; Visit Provider Physician Assistant Medical
DX: N17.9 Acute kidney failure, unspecified (principal); G92.8 Other toxic encephalopathy; E72.20 Disorder of urea cycle metabolism, unspecified; E87.0 Hyperosmolality and hypernatremia; E87.29 Other acidosis; K52.9 Noninfective gastroenteritis and colitis, unspecified; T47.3X6A Underdosing of saline and osmotic laxatives, initial encounter; G20 Parkinson's disease; K21.9 Gastro-esophageal reflux disease without esophagitis; T50.2X5A Adverse effect of carbonic-anhydrase inhibitors, benzothiadiazides and other diuretics, initial encounter; E78.5 Hyperlipidemia, unspecified; E03.9 Hypothyroidism, unspecified; N18.2 Chronic kidney disease, stage 2 (mild); I12.9 Hypertensive chronic kidney disease with stage 1 through stage 4 chronic kidney disease, or unspecified chronic kidney disease; I95.9 Hypotension, unspecified; E86.1 Hypovolemia; E87.5 Hyperkalemia; Z79.890 Hormone replacement therapy; Z79.899 Other long term (current) drug therapy
CPT/HCPCS: 36415; 71045; 74176; 80048; 80053; 81001; 82140; 82550; 82803; 82947; 83690; 83735; 83880; 84484; 85025; 85027; 85610; 87086; 93005; 93970; 97162; 99285; P9047

== ENCOUNTER 2023-02-03 09:53 | Outpatient (REF) | payer MEDICARE, MEDICAID, SELFPAY ==
[2023-02-03 12:10] LABS: Anion Gap 18 (12-20); Blood Urea Nitrogen 20 mg/dL (9-16); Carbon Dioxide 25 mmol/L (22-29); Chloride 97 mmol/L (96-108); Estimated Glomerular Filt Rate > 60; Glucose Random 134 mg/dL (60-115); Sodium 136 mmol/L (135-145)
== END 2023-02-03 09:54 | disposition home or self-care (01) ==
LOC: HO.LAB 09:53
PROVIDERS: Internal Medicine Gastroenterology; PCP Internal Medicine; Visit Provider Nurse Practitioner Family
DX: R60.0 Localized edema (principal)
CPT/HCPCS: 36415; 80048

== ENCOUNTER → 2023-02-17 07:27 | Outpatient (REF) | payer MEDICARE, MEDICAID, SELFPAY ==
--- NOTE | ~2023-02-17 | NM_ITS ---
EXAMINATION: RENAL DYNAMIC IMAGING STUDY WITH LASIX CLINICAL INFORMATION: Right-sided hydronephrosis. Acute renal failure. COMPARISON: No previous radionuclide renal scan is available for comparison. The diagnostic CT scan of the abdomen and pelvis, dated 01/24/2023, is available for comparison. TECHNIQUE: Serial gamma scintillation camera images were obtained over the posterior trunk during the initial transit and subsequent distribution of a bolus intravenous injection of 10 mCi of Tc-99m DTPA. At 30 minutes later, 38 mg of Lasix was administered intravenously and an additional 15 minutes of images obtained. FINDINGS: Initial rapid sequence images show prompt and normal-appearing flow to the left kidney but moderately diminished flow to the right kidney. Subsequent sequential static images obtained up to 30 minutes show fair to good concentration bilaterally, but the intensity of activity on the initial images in the left kidney is diminished compared to the right. Excretory activity is visualized bilaterally by 4 to 5 minutes post injection, but this is more intense on the right. The collecting system activity pattern suggest a duplicated system on the right, and possibly also on the left, but upper pole moiety ureters are not well delineated on either side. Urinary bladder activity is well visualized by 6 to 7 minutes post injection. At 30 minutes postinjection there is good visualization of activity in the urinary bladder and moderate retention with mild caliectasis is present on the right but no abnormal retention or dilatation on the left. Following Lasix administration, there is almost complete washout of the small amount of retained activity present in the left renal collecting system at the time of Lasix administration. Washout on the right is present, but is slower than on the left. At the end of the study, terminated earlier than the usual 30 minutes post Lasix administration most of the excretory activity is in the urinary bladder and there is no significant retention in the left renal collecting system but there is mild retention on the right. 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 Meaningful T-1/2 washout times following Lasix administration cannot be calculated on either side. On the left there was only minimal retention at the time of Lasix administration, and on the right the activity did not reach one half the intensity at the time of Lasix administration. The relative function of the two kidneys based on the 2-3 minute images are: Left 30% and right 70%. NM/NM renal flow w pharm int IMPRESSION: LEFT KIDNEY: Mildly impaired perfusion and function compared to the right. No hydronephrosis or outflow obstruction. RIGHT KIDNEY: Normal perfusion and function. Mild hydronephrosis is probably present and low-grade partial outflow obstruction may also be present. The study was terminated earlier than the usual 30 minutes post Lasix administration, and while significant washout on the right is present, a T-1/2 washout time could not be calculated.
[2023-02-17 07:48] LABS: Ammonia 91 umol/L (13-55)
[2023-02-17 08:31] LABS: Anion Gap 21 (12-20); Blood Urea Nitrogen 12 mg/dL (9-16); Calcium 9.8 mg/dL (8.4-10.2); Carbon Dioxide 23 mmol/L (22-29); Chloride 98 mmol/L (96-108); Estimated Glomerular Filt Rate > 60; Glucose Random 134 mg/dL (60-115); Potassium 4.5 mmol/L (3.3-5.1); Sodium 137 mmol/L (135-145)
[2023-02-17 08:59] LABS: Appearance Urine Clear; Color Urine Yellow; Glucose Urine UA Negative (Negative); Leukocyte Esterase Urine Trace (Negative); Nitrite Urine Negative (Negative); PH 8.5 (5.0-9.0); Specific Gravity - Urine 1.015 (1.005-1.025); UMIC TRIGGER UA YES; Urine Blood Negative (Negative); Urine Ketones Negative (Negative); Urine Protein Negative (Neg-Trace)
[2023-02-17 09:19] LABS: Bacteria Urine None Seen (None Seen); Hyaline Casts Urine 0-2 /LPF (0-2); RBC Urine 0-2 /HPF (0-2); WBC Urine 0-5 /HPF (0-5)
== END ==
LOC: HO.NUCMED 07:27
PROVIDERS: Absent Provider Internal Medicine; PCP Internal Medicine; Visit Provider Nurse Practitioner Family
DX: N13.30 Unspecified hydronephrosis (principal); I10 Essential (primary) hypertension; K74.4 Secondary biliary cirrhosis
CPT/HCPCS: 36415; 78708; 80048; 81001; 81003; 82140; A9539; J1940

== ENCOUNTER 2023-02-21 11:45 | Outpatient (REF) | payer MEDICARE, MEDICAID, SELFPAY ==
--- NOTE | ~2023-02-21 | MM_ITS ---
EXAMINATION: MM SCREENING DIGITAL BREAST TOMOSYNTHESIS, BILATERAL CLINICAL INFORMATION: Screening. Asymptomatic. The lifetime risk of breast cancer based on the Tyrer-Cuzick Model is 3.9%. COMPARISON: Mammography: This study is compared with prior exams dating back to 2020. TECHNIQUE: Digital breast tomosynthesis is performed in both the craniocaudal and mediolateral oblique views along with computer-aided detection (CAD). Synthesized 2D images are generated from the tomosynthesis. FINDINGS: There are scattered areas of fibroglandular density (ACR BI-RADS breast composition Category b). There are no significant masses, abnormal calcifications, or other abnormalities. There are numerous, unchanged, benign secretory calcifications throughout each breast. This is a benign finding. MM/MM tomosynthesis screening BI IMPRESSION: No mammographic evidence of malignancy. ASSESSMENT: BI-RADS BI-RADS 2 - Benign Findings RECOMMENDATION: Routine annual mammography screening. 1 year F/U This examination should not preclude the clinical evaluation of a suspicious palpable abnormality. This patient's information was entered into a reminder system with a target due date for their next mammogram.
== END 2023-02-21 11:46 | disposition home or self-care (01) ==
LOC: HO.MAMMO 11:45
PROVIDERS: PCP Internal Medicine; Visit Provider Internal Medicine
DX: Z12.31 Encounter for screening mammogram for malignant neoplasm of breast (principal)
CPT/HCPCS: 77063; 77067

== ENCOUNTER → 2023-02-21 12:00 | Outpatient (BNV) | payer MEDICARE, MEDICAID, SELFPAY | PROVIDERS: PCP Internal Medicine; Visit Provider Radiology Diagnostic Radiology | DX: Z12.31 Encounter for screening mammogram for malignant neoplasm of breast (principal) | CPT/HCPCS: 77063; 77067 ==

== ENCOUNTER 2023-02-22 14:53 | Inpatient (IN) | payer MEDICARE, MEDICAID, SELFPAY ==
--- NOTE | ~2023-02-22 | CT_ITS ---
EXAMINATION: CT ANGIOGRAM ABDOMEN AND PELVIS CLINICAL INFORMATION: Abdominal pain with question of mesenteric ischemia COMPARISON: CT abdomen pelvis 01/24/[address] abdomen pelvis 04/03/2020 TECHNIQUE: Multiple axial images were obtained through the abdomen and pelvis following the administration of 80 mL of Omnipaque 350 intravenous contrast. Images were reviewed on a dedicated 3-D workstation. This CT examination was performed using dose optimization techniques as appropriate, variously including the following: *Automated exposure control *Adjustment of mA and/or kV according to patient size (this includes techniques or standardized protocols for targeted exams where dose is matched to indication/reason for exam; i.e. extremities or head) *Use of iterative reconstruction technique DLP: 701 mGy-cm VASCULAR FINDINGS: The abdominal aorta and iliofemoral vessels appear unremarkable aside from some minimal calcific plaque. No aneurysms, stenoses or dissections are seen. The celiac and SMA are widely patent with mild calcific plaque at the origins. The MARGARET has a mild origin stenosis as well. 2 renal arteries are present on the right with a single renal artery on the left. There is some mild ostial disease but no significant stenosis. Portal venous system cannot be assessed on this CT angiogram. The IVC is of normal caliber. Incidental note made of a retroaortic left renal vein. NONVASCULAR FINDINGS: LUNG BASES: The visualized lung bases are unremarkable. LIVER, GALLBLADDER, AND BILIARY TREE: The liver has a nodular cirrhotic appearance. No focal hepatic lesion or biliary ductal dilatation is present. The gallbladder is not seen. PANCREAS: Unremarkable. SPLEEN: Spleen is enlarged at 14.3 cm. ADRENAL GLANDS: Unremarkable. KIDNEYS AND URETERS: The kidneys are normal in size, shape, and attenuation. No hydronephrosis, hydroureter, or calculi seen. No perinephric stranding. BLADDER: Unremarkable. GASTROINTESTINAL TRACT: A small hiatal hernia is present The small and large bowel are unremarkable. The appendix is unremarkable. No evidence to suggest bowel ischemia ABDOMINAL WALL: No significant hernia is appreciated. LYMPH NODES: No retroperitoneal lymphadenopathy. Some mild inflammatory changes seen in the anterior pararenal space just below the kidney adjacent to ascending colon with some probable small lymph nodes in the mesentery. Similar appearances were present at the time of 01/24/2023 CT scan as well as the 04/03/2020 study. PELVIC VISCERA: The uterus has a tiny amount of air in the endometrial cavity. The adnexa are unremarkable. No significant free intraperitoneal fluid seen. OSSEOUS STRUCTURES: Unremarkable. CT/CT angio abdomen pelvis IMPRESSION: 1. No evidence of significant mesenteric stenoses 2. No evidence of bowel edema to suggest ischemia. 3. Nodular cirrhotic-appearing liver with associated splenomegaly. 4. Other incidental findings as described above. Fleischner guidelines were followed.
--- NOTE | ~2023-02-22 | XR_ITS ---
EXAMINATION: PELVIS AND RIGHT HIP AND LUMBAR SPINE CLINICAL INFORMATION: Trauma COMPARISON: CT abdomen pelvis 01/24/2023 TECHNIQUE: 4 views lumbosacral spine, single view pelvis and 2 views right hip FINDINGS: Lumbar spine: Mild degenerative changes are present in the spine. No fractures are seen. No bony destructive lesions are seen. There is a benign-appearing sclerotic lesion seen in the right iliac bone above the acetabulum unchanged compared to 01/24/2023. Pelvis and hip: No fractures or dislocations are seen. Some minimal degenerative changes are present in the hips with some supra-acetabular sclerosis. XR/XR lumbar spine 2-3V IMPRESSION: No evidence of an acute osseous injury. Mild degenerative changes as described above. Incidental benign-appearing sclerotic lesion right iliac bone.
--- NOTE | ~2023-02-22 | XR_ITS ---
EXAMINATION: XR CHEST CLINICAL INFORMATION: Weakness COMPARISON: Chest x-ray 01/24/2023 TECHNIQUE: Frontal view of the chest was obtained. 8:03 PM FINDINGS: Lung volume is low causing crowding of the bronchovascular markings. No acute abnormality. No significant abnormality is noted involving the heart, lungs, mediastinum, bony thorax or soft tissues. XR/XR chest 1V IMPRESSION: Unremarkable examination.
--- NOTE | ~2023-02-22 | CT_ITS ---
EXAMINATION: NONCONTRAST HEAD CT NONCONTRAST MAXILLOFACIAL CT NONCONTRAST CERVICAL SPINE CT INDICATION INFORMATION: Trauma. COMPARISON: CT head and cervical spine 11/09/2021. TECHNIQUE: Separate noncontrast CT examinations of the head, maxillofacial bones, and cervical spine were performed. Coronal and sagittal images were created for each examination at the technologist workstation. This CT examination was performed using dose optimization techniques as appropriate, variously including the following: *Automated exposure control *Adjustment of mA and/or kV according to patient size (this includes techniques or standardized protocols for targeted exams where dose is matched to indication/reason for exam; i.e. extremities or head) *Use of iterative reconstruction technique DLP: 670, 381 and 279 mGy-cm FINDINGS: Head: There is no evidence of acute intracranial hemorrhage or territorial infarction. Chronic lacunar infarcts in the basal ganglia and left cerebellar hemisphere. No abnormal mass effect or midline shift is seen. Alexandra to white matter differentiation is well preserved. No extra-axial fluid collections are identified. No hydrocephalus. Proportional prominence of the ventricles and sulcal spaces is consistent with mild volume loss. Patchy periventricular and deep white matter hypoattenuation is consistent with mild small vessel ischemic changes. Small posterior skull vertex hematoma. No calvarial fracture. The mastoid air cells are well aerated. Maxillofacial: No acute maxillofacial fractures are seen. The frontal, maxillary, ethmoid, and sphenoid sinuses are well aerated. The mandibular heads are well-seated in the condylar fossa. The orbits demonstrate a normal appearance bilaterally. The globes are intact, and there are no suspicious findings to suggest retrobulbar hemorrhage. Cervical spine: There is anatomic alignment of the vertebral bodies and posterior elements. The atlantoaxial and atlantooccipital articulations are intact. Vertebral body heights are maintained. There is multilevel intervertebral disc space narrowing with endplate osteophyte formation and facet arthropathy. No evidence of acute fracture. No prevertebral soft tissue swelling. Visualized portions of the lung apices are unremarkable. The thyroid gland is unremarkable. CT/CT cervical spine wo IV con IMPRESSION: 1. Small posterior skull vertex hematoma without acute intracranial abnormalities. 2. No acute maxillofacial fractures. 3. No acute cervical fractures or malalignment.
--- NOTE | ~2023-02-22 | XR_ITS ---
EXAMINATION: PELVIS AND RIGHT HIP AND LUMBAR SPINE CLINICAL INFORMATION: Trauma COMPARISON: CT abdomen pelvis 01/24/2023 TECHNIQUE: 4 views lumbosacral spine, single view pelvis and 2 views right hip FINDINGS: Lumbar spine: Mild degenerative changes are present in the spine. No fractures are seen. No bony destructive lesions are seen. There is a benign-appearing sclerotic lesion seen in the right iliac bone above the acetabulum unchanged compared to 01/24/2023. Pelvis and hip: No fractures or dislocations are seen. Some minimal degenerative changes are present in the hips with some supra-acetabular sclerosis. XR/XR hip RT w PEL1V IMPRESSION: No evidence of an acute osseous injury. Mild degenerative changes as described above. Incidental benign-appearing sclerotic lesion right iliac bone.
[2023-02-22 15:00] VITALS: BP 120/85; BP 138/69; PULSE 110; RESP 16; TEMP 36.8; O2SAT 98; BMI 28.4
[2023-02-22 15:50] VITALS: BP 123/59; PULSE 115; RESP 18; O2SAT 96
--- NOTE | 2023-02-22 16:54 | ECG_ITS ---
Test Reason : PAIN Blood Pressure : / mmHG Vent. Rate : 114 BPM Atrial Rate : 114 BPM P-R Int : 122 ms QRS Dur : 084 ms QT Int : 372 ms P-R-T Axes : 045 -07 117 degrees QTc Int : 512 ms Sinus tachycardia Septal infarct , age undetermined Abnormal ECG When compared with ECG of 24-JAN-2023 13:38, No significant change was found Referred By: Nathan Martinez Electronically Signed By:JAZMÍN GRANT
--- NOTE | 2023-02-22 17:25 | ED.GENADULT ---
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 The patient is a somewhat poor historian. Her family is helping to interpret. They declined hospital interpreting services The patient is complaining of right-sided headache, facial pain, right-sided hip and low back pain. She reports that she was trying to turn the light off by pulling on the string from the ceiling. She states that she reached up and lost her balance causing her to fall onto her right side Per her family this is her 15th fall since she was discharged just under 1 month ago for acute renal failure The patient has been taking her lactulose for her history of elevated ammonia levels. The chest pain, shortness of breath, cough, abdominal pain. Related Data Home Medications Medication Instructions Recorded Confirmed atorvastatin 20 mg tablet 20 mg PO BEDTIME 04/21/20 02/22/23 carbidopa 25 mg-levodopa 100 mg 1 tab PO TID 04/21/20 02/22/23 tablet gabapentin 300 mg capsule 300 mg PO TID 04/21/20 02/22/23 levothyroxine 75 mcg tablet 75 mcg PO DAILY 04/21/20 02/22/23 linagliptin 2.5 mg-metformin 1,000 1 tab PO BIDWM 04/21/20 02/22/23 mg tablet (Jentadueto) omeprazole 20 mg capsule,delayed 20 mg PO DAILY 04/21/20 02/22/23 release calcium carbonate 500 mg-vitamin 1 tab PO QAM 11/09/21 02/22/23 D3 10 mcg (400 unit) tablet (Oyster Shell Calcium-Vitamin D3) acetaminophen 650 mg 650 mg PO Q8H PRN Pain 12/01/21 02/22/23 tablet,extended release melatonin 5 mg tablet 5 mg PO BEDTIME 12/01/21 02/22/23 acarbose 50 mg tablet 50 mg PO TID 09/16/22 02/22/23 montelukast 10 mg tablet 10 mg PO BEDTIME 09/16/22 02/22/23 trazodone 50 mg tablet 50 mg PO BEDTIME 01/05/23 02/22/23 lactulose 10 gram/15 mL oral 30 ml PO DAILY 02/22/23 02/22/23 solution Previous Rx's Medication Instructions Recorded bumetanide 0.5 mg tablet 0.5 mg PO DAILY 30 days #30 tabs 01/27/23 spironolactone 25 mg tablet 25 mg PO BID 30 days #60 tabs 01/27/23 (Aldactone) Allergies Allergy/AdvReac Type Severity Reaction Status Date / Time aspirin [ASPIRIN] Allergy Intermediate HIVES Verified 01/11/23 11:45 Penicillins [PCN] Allergy Intermediate HIVES Verified 01/11/23 11:45 Review of Systems Constitutional: Constitutional: Reports frequent falls, Reports headache(s) and Reports weakness ENT: Reports headache(s) and Denies neck pain Cardiovascular: Cardiovascular: Denies chest pain, Denies syncope, Denies rapid heart rate, Denies pedal edema and Denies dyspnea Respiratory: Respiratory: Denies cough and Denies dyspnea Gastrointestinal: Gastrointestinal: Denies abdominal pain, Denies nausea and Denies vomiting Genitourinary: Genitourinary: Denies dysuria Musculoskeletal: Musculoskeletal: Reports back pain, Reports arthralgias, Denies joint swelling, Reports limited range of motion, Denies loss of height and Denies neck pain Integumentary/Breasts: Skin/Breast: Denies wounds Neurologic: Denies syncope, Reports frequent falls, Reports headache(s) and Reports weakness PMFSH Past Medical History Medical History Anemia Cirrhosis Diabetes Hx of hepatitis C Hypertension Hyperthyroidism Parkinson disease Severe sepsis Thrombocytopenia Surgical History H/O colonoscopy History of cholecystectomy History of cystoscopy History of esophagogastroduodenoscopy (EGD) History of tonsillectomy History of tubal ligation Hx of lithotripsy Family History Family History Daughter Diabetes Daughter Diabetes Brother HTN (hypertension) Social History Social History Household Members: Family Housing: House Are you a primary career guidance counselor to a significant other at home: No Do you presently have visiting nurse or other home services: Yes Unable to assess alcohol history related to: Unknown Alcohol intake: never Patient Tobacco Use Status: Never used Tobacco Second Hand Smoke Exposure: No Advance Directives: No Advance Directives Information Provided: No Advance Directives Date on File: 04/25/20 service: No Current occupational status: disabled Physical Exam ED Vital Signs: Vital Signs - 24 hr 02/22/23 15:00 02/22/23 15:50 02/22/23 17:49 Temperature 98.3 F 98.7 F Pulse Rate 110 H 115 H 111 H Respiratory Rate 16 18 18 Blood Pressure 138/69 123/59 L 119/58 L Pulse Oximetry 98 96 96 Oxygen Delivery Method Room Air Room Air Room Air 02/22/23 20:28 02/22/23 23:48 Temperature 98.5 F 98.7 F Pulse Rate 102 H 99 Respiratory Rate 18 17 Blood Pressure 127/60 123/58 L Pulse Oximetry 97 97 Oxygen Delivery Method Room Air Room Air BMI result Body Mass Index 28.4 Const General: healthy appearing, comfortable, no acute distress, alert and awake Nutritional Appearance: well nourished Orientation/consciousness: patient oriented x3 HENMT Head: Yes normocephalic and Yes atraumatic Eyes Eyelids: Yes eyelids normal Conjunctivae: conjunctivae normal Corneas: corneas normal Pupils: Equal, round and reactive pupils present EOM: EOMs intact bilaterally Neck Other: Patient is in a hard C-collar Resp Effort & Inspection: normal respiratory effort, able to speak in complete sentences and not labored Cardio Rate: regular rate Rhythm: regular rhythm GI Inspection: No distended Palpation (GI): Soft to palpation, not firm, nontender, no guarding and not rigid Auscultation: normoactive bowel sounds Back/Spine/Pelvis Other: There is no shortening or rotation of either lower extremity. She is tender palpation of the right hip. She is unable to lift either lower extremity off the bed. Skin General skin exam: no rashes or lesions noted and elasticity normal Neuro General: patient oriented x3 Cranial nerves: Yes CN's II-XII intact bilaterally, Yes Equal, round and reactive pupils present and Yes Bilaterally intact EOM present Cognition (Neuro): normal cognition Course Reevaluation(s) Reevaluation #1: Patient's trauma scans do not show any evidence of acute traumatic injury. The heart C-collar was removed. Patient was noted to have a had a high anion gap acidosis. For this reason a lactic acid was added on which was noted to be elevated chest x-ray to rule out infectious cause. Patient is not in severe rhabdo but has mild elevation of the CK. She was given a 2 L of IV fluid. UA does not show any sign of infection. Chest x-ray pending at this time. The patient's abdomen is nontender Time: 20:24 Reevaluation #2: Patient's repeat lactate still elevated to 11.8. On re-evaluation, she is continues to deny any abdominal pain. She is nontender on exam. I still have no source of her elevated lactic acid. The patient is on metformin 1000 mg b.i.d. with a combination medication of Jentadueto. However we will get a CT scan of the abdomen pelvis to rule out mesenteric ischemia or other intra-abdominal pathology to explain the significantly elevated lactic acidosis. Time: 22:02 Reevaluation #3: CT scan of the abdomen pelvis with angiography is unremarkable for acute findings. It is still unclear with the cause the patient's severe lactic acidosis is. I added on a beta hydroxybutyrate email the patient's blood sugar was not severely elevated. Discussed with the hospitalist Dr. Benson who will review the patient Time: 23:42 Medications Administered Discontinued Medications Generic Name Dose Route Start Last Admin Trade Name Freq PRN Reason Stop Dose Admin Sodium Chloride 1,000 mls @ 999 mls/hr 02/22/23 18:15 02/22/23 20:34 Ns IV 02/22/23 19:15 Infused .Q1H1M MICHAEL Infusion Sodium Chloride 1,000 mls @ 999 mls/hr 02/22/23 20:15 02/22/23 21:42 Ns IV 02/22/23 21:15 Infused .Q1H1M MICHAEL Infusion Iohexol 80 ml 02/22/23 22:36 02/22/23 22:37 Iohexol 350 Mg/Ml 100 Ml Infus..Btl IV 02/22/23 22:37 80 ml ONCE ONE Administration Lorazepam 1 mg 02/22/23 18:27 02/22/23 18:33 Lorazepam 1 Mg Tablet PO 08/01/23 18:28 1 mg ONCE ONE Administration Tramadol HCl 50 mg 02/22/23 17:09 02/22/23 17:37 Tramadol Hcl 50 Mg Tablet PO 02/22/23 17:10 50 mg ONCE ONE Administration Medical Decision Making Medical Decision Making [facility] Narrative: 68-year-old female past medical history significant for liver cirrhosis, recent admission for TARUN presents for evaluation after a fall. She is a somewhat poor historian. Will initiate broad workup including labs, imaging, UA, EKG. Patient denies any chest pain. Will check an ammonia as she reports that her PCP told her it was high recently. Will check a CPK as the patient reports that she fell around 9 p.m., but it is unclear if this is accurate. She was found by her grandson. Differential Diagnosis Differential Diagnoses: The differential diagnosis associated with the presentation includes Mechanical fall Syncope Intracranial hemorrhage Facial fracture Cervical fracture Right hip fracture Contusion Rhabdomyolysis TARUN Metabolic encephalopathy Hepatic encephalopathy Admission/Observation Consideration of admission/observation: Escalation of care including admission/observation considered Patient has severe lactic acidosis Consult Healthcare Provider Management of the patient was discussed with: Hospitalist Lab Data [facility] Lab Attestation statement: I reviewed the patient's lab results. Mild leukopenia with a white count of 4.7, shows a mild anemia consistent with a baseline. The patient has a chronic thrombocytopenia with a platelet count of 50 today. Sodium normal at 139. Potassium normal at 4.4 . Patient's chloride is 100, CO2 is low at 16. BUN is just above normal at 17 with a creatinine 0.98. Patient gap of 27. Transaminitis consistent with a baseline. Her ammonia is elevated to 77 which is low normal for her. Lactate elevated to 12.7. 02/22/23 17:34 02/22/23 17:34 Labs: Lab Results 02/22/23 02/22/23 02/22/23 Range/Units 17:34 17:34 17:34 WBC 4.7 L (4.8-10.8) X10*3/uL RBC 3.28 L (4.20-5.50) X10*6/uL Hgb 11.3 L (12.0-16.0) g/dl Hct 33.3 L (37.0-47.0) % MCV 101.5 H (80.0-98.0) fL MCH 34.5 H (27.0-33.0) pg MCHC 33.9 (31.0-35.0) g/dl RDW 14.9 (11.0-16.0) % Plt Count 50 L (160-400) X10*3/uL MPV 12.0 (9.4-12.3) fL Immature Gran % (Auto) 0.4 (0.0-0.4) % Neut % (Auto) 54.2 (45-73) % Lymph % (Auto) 25.6 (20-40) % [place] % (Auto) 16.0 H (2-11) % Eos % (Auto) 3.4 (0-4) % Baso % (Auto) 0.4 (0-2) % Lymph # (Auto) 1.2 (1.2-4.9) X10*3/uL [place] # (Auto) 0.8 (0.1-1.2) X10*3/uL Eos # (Auto) 0.2 (0.0-0.4) X10*3/uL Baso # (Auto) 0.0 (0.0-0.2) X10*3/uL Abs Immat Gran (auto) 0.02 (0.00-0.03) X10*3/uL Absolute Neuts (auto) 2.5 (2.0-8.3) x10*3/uL Absolute Nucleated RBC 0.000 (0.0-0.012) X10*3/uL Nucleated RBC % (auto) 0.0 (0.0-0.2) /100WBC PT (11.1-13.3) SEC INR (0.9-1.1) APTT (26.0-36.4) SEC VBG pH (7.32-7.43) VBG pCO2 mmHg VBG pO2 mmHg VBG HCO3 (22-26) mmol/L VBG O2 Saturation % VBG Base Excess mmol/L Sodium 139 (135-145) mmol/L Potassium 4.4 (3.3-5.1) mmol/L Chloride 100 (96-108) mmol/L Carbon Dioxide 16 L (22-29) mmol/L Anion Gap 27 H (12-20) BUN 17 H (9-16) mg/dL Creatinine 0.98 (0.5-1.4) mg/dL Estim Creat Clear Calc 53.7 Estimated GFR 56 Random Glucose 103 (60-115) mg/dL Lactic Acid (0.5-2.0) mmol/L Calcium 10.6 H D (8.4-10.2) mg/dL Total Bilirubin 5.3 H (0.0-1.0) mg/dL AST 107 H (5-31) U/L ALT 49 H (0-31) U/L Alkaline Phosphatase 130 H (39-117) U/L Ammonia 77 H (13-55) umol/L Total Creatine Kinase (26-140) U/L Total Protein 7.7 (6.5-8.0) g/dL Albumin 2.5 L (3.5-5.0) g/dL Lipase 49 (8-78) U/L Procalcitonin 0.07 ng/mL Urine Color Urine Appearance Urine pH (5.0-9.0) Ur Specific [place] (1.005-1.025) Urine Protein (Neg-Trace) mg/dL Urine Glucose (UA) (Negative) mg/dL Urine Ketones (Negative) mg/dL Urine Blood (Negative) Urine Nitrite (Negative) Ur Leukocyte Esterase (Negative) Urine RBC (0-2) /HPF Urine WBC (0-5) /HPF Ur Squamous Epith Cells (0-2) /HPF Urine Bacteria (None Seen) Hyaline Casts (0-2) /LPF 02/22/23 02/22/23 02/22/23 Range/Units 17:34 17:34 17:59 WBC (4.8-10.8) X10*3/uL RBC (4.20-5.50) X10*6/uL Hgb (12.0-16.0) g/dl Hct (37.0-47.0) % MCV (80.0-98.0) fL MCH (27.0-33.0) pg MCHC (31.0-35.0) g/dl RDW (11.0-16.0) % Plt Count (160-400) X10*3/uL MPV (9.4-12.3) fL Immature Gran % (Auto) (0.0-0.4) % Neut % (Auto) (45-73) % Lymph % (Auto) (20-40) % Hendry % (Auto) (2-11) % Eos % (Auto) (0-4) % Baso % (Auto) (0-2) % Lymph # (Auto) (1.2-4.9) X10*3/uL Hendry # (Auto) (0.1-1.2) X10*3/uL Eos # (Auto) (0.0-0.4) X10*3/uL Baso # (Auto) (0.0-0.2) X10*3/uL Abs Immat Gran (auto) (0.00-0.03) X10*3/uL Absolute Neuts (auto) (2.0-8.3) x10*3/uL Absolute Nucleated RBC (0.0-0.012) X10*3/uL Nucleated RBC % (auto) (0.0-0.2) /100WBC PT 20.7 H (11.1-13.3) SEC INR 1.7 H (0.9-1.1) APTT 42.5 H (26.0-36.4) SEC VBG pH (7.32-7.43) VBG pCO2 mmHg VBG pO2 mmHg VBG HCO3 (22-26) mmol/L VBG O2 Saturation % VBG Base Excess mmol/L Sodium (135-145) mmol/L Potassium (3.3-5.1) mmol/L Chloride (96-108) mmol/L Carbon Dioxide (22-29) mmol/L Anion Gap (12-20) BUN (9-16) mg/dL Creatinine (0.5-1.4) mg/dL Estim Creat Clear Calc Estimated GFR Random Glucose (60-115) mg/dL Lactic Acid (0.5-2.0) mmol/L Calcium (8.4-10.2) mg/dL Total Bilirubin (0.0-1.0) mg/dL AST (5-31) U/L ALT (0-31) U/L Alkaline Phosphatase (39-117) U/L Ammonia (13-55) umol/L Total Creatine Kinase 1005 H (26-140) U/L Total Protein (6.5-8.0) g/dL Albumin (3.5-5.0) g/dL Lipase (8-78) U/L Procalcitonin ng/mL Urine Color Yellow Urine Appearance Clear Urine pH 5.5 (5.0-9.0) Ur Specific [place] 1.015 (1.005-1.025) Urine Protein Negative (Neg-Trace) mg/dL Urine Glucose (UA) Negative (Negative) mg/dL Urine Ketones Trace (Negative) mg/dL Urine Blood Negative (Negative) Urine Nitrite Negative (Negative) Ur Leukocyte Esterase Trace H (Negative) Urine RBC 0-2 (0-2) /HPF Urine WBC 6-10 H (0-5) /HPF Ur Squamous Epith Cells 3-5 (0-2) /HPF Urine Bacteria Trace (None Seen) Hyaline Casts 3-5 (0-2) /LPF 02/22/23 02/22/23 02/22/23 Range/Units 19:37 19:37 21:28 WBC (4.8-10.8) X10*3/uL RBC (4.20-5.50) X10*6/uL Hgb (12.0-16.0) g/dl Hct (37.0-47.0) % MCV (80.0-98.0) fL MCH (27.0-33.0) pg MCHC (31.0-35.0) g/dl RDW (11.0-16.0) % Plt Count (160-400) X10*3/uL MPV (9.4-12.3) fL Immature Gran % (Auto) (0.0-0.4) % Neut % (Auto) (45-73) % Lymph % (Auto) (20-40) % Hendry % (Auto) (2-11) % Eos % (Auto) (0-4) % Baso % (Auto) (0-2) % Lymph # (Auto) (1.2-4.9) X10*3/uL [place] # (Auto) (0.1-1.2) X10*3/uL Eos # (Auto) (0.0-0.4) X10*3/uL Baso # (Auto) (0.0-0.2) X10*3/uL Abs Immat Gran (auto) (0.00-0.03) X10*3/uL Absolute Neuts (auto) (2.0-8.3) x10*3/uL Absolute Nucleated RBC (0.0-0.012) X10*3/uL Nucleated RBC % (auto) (0.0-0.2) /100WBC PT (11.1-13.3) SEC INR (0.9-1.1) APTT (26.0-36.4) SEC VBG pH 7.40 (7.32-7.43) VBG pCO2 32 mmHg VBG pO2 58 mmHg VBG HCO3 20 L (22-26) mmol/L VBG O2 Saturation 84.0 % VBG Base Excess -3.1 mmol/L Sodium (135-145) mmol/L Potassium (3.3-5.1) mmol/L Chloride (96-108) mmol/L Carbon Dioxide (22-29) mmol/L Anion Gap (12-20) BUN (9-16) mg/dL Creatinine (0.5-1.4) mg/dL Estim Creat Clear Calc Estimated GFR Random Glucose (60-115) mg/dL Lactic Acid 12.6 H* 11.8 H* (0.5-2.0) mmol/L Calcium (8.4-10.2) mg/dL Total Bilirubin (0.0-1.0) mg/dL AST (5-31) U/L ALT (0-31) U/L Alkaline Phosphatase (39-117) U/L Ammonia (13-55) umol/L Total Creatine Kinase (26-140) U/L Total Protein (6.5-8.0) g/dL Albumin (3.5-5.0) g/dL Lipase (8-78) U/L Procalcitonin ng/mL Urine Color Urine Appearance Urine pH (5.0-9.0) Ur Specific [place] (1.005-1.025) Urine Protein (Neg-Trace) mg/dL Urine Glucose (UA) (Negative) mg/dL Urine Ketones (Negative) mg/dL Urine Blood (Negative) Urine Nitrite (Negative) Ur Leukocyte Esterase (Negative) Urine RBC (0-2) /HPF Urine WBC (0-5) /HPF Ur Squamous Epith Cells (0-2) /HPF Urine Bacteria (None Seen) Hyaline Casts (0-2) /LPF Discharge Plan Discharge Clinical Impression: Falls frequently, Acute lactic acidosis Patient Disposition: Admitted As Inpatient Prescriptions: No Action atorvastatin 20 mg tablet 20 mg PO BEDTIME levothyroxine 75 mcg tablet 75 mcg PO DAILY gabapentin 300 mg capsule 300 mg PO TID omeprazole 20 mg capsule,delayed release(DR/EC) 20 mg PO DAILY carbidopa-levodopa 25-100 mg tablet 1 tab PO TID Jentadueto 2.5-1,000 mg tablet 1 tab PO BIDWM calcium carbonate-vitamin D3 [Oyster Shell Calcium-Vit D3] 500 mg-10 mcg (400 unit) tablet 1 tab PO QAM acetaminophen 650 mg Tablet Extended Release 650 mg PO Q8H PRN (Reason: Pain) melatonin 5 mg Tablet 5 mg PO BEDTIME spironolactone [Aldactone] 25 mg tablet 25 mg PO BID 30 Days Qty: 60 0RF bumetanide 0.5 mg tablet 0.5 mg PO DAILY 30 Days Qty: 30 0RF lactulose 10 gram/15 mL solution 30 ml PO DAILY montelukast 10 mg tablet 10 mg PO BEDTIME acarbose 50 mg tablet 50 mg PO TID trazodone 50 mg tablet 50 mg PO BEDTIME
[2023-02-22] MEDS: traMADoL HCL 50 MG TABLET PO (17:37)
[2023-02-22 17:42] LABS: MANUAL DIFF FLAG NO
[2023-02-22 17:45] LABS: Basophils Percent Auto 0.4 % (0-2); Eosinophils Absolute Auto 0.2 X10*3/uL (0.0-0.4); Eosinophils Percent Auto 3.4 % (0-4); Hematocrit 33.3 % (37.0-47.0); Hemoglobin 11.3 g/dl (12.0-16.0); Imm Gran Abs Auto 0.02 X10*3/uL (0.00-0.03); Imm Gran Pct Auto 0.4 % (0.0-0.4); Lymphocytes Absolute Auto 1.2 X10*3/uL (1.2-4.9); Lymphocytes Percent Auto 25.6 % (20-40); Mean Corpuscular HGB Conc 33.9 g/dl (31.0-35.0); Mean Corpuscular Hemoglobin 34.5 pg (27.0-33.0); Mean Corpuscular Volume 101.5 fL (80.0-98.0); Monocytes Absolute Auto 0.8 X10*3/uL (0.1-1.2); Neutrophils Absolute Auto 2.5 x10*3/uL (2.0-8.3); Neutrophils Percent Auto 54.2 % (45-73); Red Blood Count 3.28 X10*6/uL (4.20-5.50); Red Cell Distribution Width 14.9 % (11.0-16.0); White Blood Count 4.7 X10*3/uL (4.8-10.8)
[2023-02-22 17:47] LABS: Platelet Count 50 X10*3/uL (160-400)
[2023-02-22 17:49] VITALS: BP 119/58; PULSE 111; RESP 18; TEMP 37.1; O2SAT 96
[2023-02-22 17:50] LABS: INTERNATIONAL NORM RATIO 1.7 (0.9-1.1); Prothrombin Time 20.7 SEC (11.1-13.3)
[2023-02-22 17:52] LABS: Partial Thromboplastin Time 42.5 SEC (26.0-36.4)
[2023-02-22 17:53] LABS: Ammonia 77 umol/L (13-55)
[2023-02-22 18:21] LABS: Alanine Aminotransferase 49 U/L (0-31); Albumin Level 2.5 g/dL (3.5-5.0); Alkaline Phosphatase 130 U/L (39-117); Anion Gap 27 (12-20); Aspartate Amino Transferase 107 U/L (5-31); Bilirubin Total 5.3 mg/dL (0.0-1.0); Blood Urea Nitrogen 17 mg/dL (9-16); Calcium 10.6 mg/dL (8.4-10.2); Carbon Dioxide 16 mmol/L (22-29); Chloride 100 mmol/L (96-108); Creatinine Clr Calc Pharmacy 53.7; Estimated Glomerular Filt Rate 56; Glucose Random 103 mg/dL (60-115); Lipase 49 U/L (8-78); Potassium 4.4 mmol/L (3.3-5.1); Sodium 139 mmol/L (135-145); Total Protein 7.7 g/dL (6.5-8.0)
[2023-02-22 18:21] LABS: Appearance Urine Clear; Color Urine Yellow; Glucose Urine UA Negative (Negative); Leukocyte Esterase Urine Trace (Negative); Nitrite Urine Negative (Negative); PH 5.5 (5.0-9.0); Specific Gravity - Urine 1.015 (1.005-1.025); UMIC TRIGGER UACC YES; Urine Blood Negative (Negative); Urine Ketones Trace mg/dL (Negative); Urine Protein Negative (Neg-Trace)
[2023-02-22 18:26] LABS: Bacteria Urine Trace (None Seen); RBC Urine 0-2 /HPF (0-2); UACC Culture Trigger YES
--- NOTE | 2023-02-22 18:27 | PHA.MEDREC ---
Pharmacy Consult ? Medication Reconciliation Pharmacy has completed the medication reconciliation. Patient's family brought in list of medication in med box. Family was able to report all medications outside of med box as well. Shyanne Velasco, LorrieD
[2023-02-22] MEDS: 0.9 % Sodium Chloride 1,000 ML 999 ML IV ×2 (18:32→20:31)
[2023-02-22] MEDS: LORazepam 1 MG TABLET PO (18:33)
--- NOTE | 2023-02-22 18:35 | PC.NURSE ---
assisted with the bedpan. medicated per the MAR, fluids infusing. family at bedside.
[2023-02-22 19:45] LABS: VBG Base Excess -3.1 mmol/L; VBG HCO3 20 mmol/L (22-26); VBG pCO2 32 mmHg; VBG pO2 58 mmHg
[2023-02-22 19:45] LABS: Venous Blood Gas Refer to POC result
[2023-02-22 20:02] LABS: Lactic Acid 12.6 mmol/L (0.5-2.0)
[2023-02-22 20:28] VITALS: BP 127/60; PULSE 102; RESP 18; TEMP 36.9; O2SAT 97
--- NOTE | 2023-02-22 20:35 | PC.NURSE ---
patient in bed with eyes open patient family is at the bedside patient is tolerating fluids with no issues at this time
[2023-02-22 21:39] LABS: Reflex Lactate? Lactic Acid Added
[2023-02-22 21:47] LABS: Lactic Acid 11.8 mmol/L (0.5-2.0)
[2023-02-22] MEDS: iohexoL 350 MG/ML 100 ML INFUS..BTL 80 ML IV (22:37)
[2023-02-22 22:52] LABS: Procalcitonin 0.07 ng/mL
[2023-02-22 23:32] LABS: Reflex Lactate? Lactic Acid Added
[2023-02-22 23:48] VITALS: BP 123/58; PULSE 99; RESP 17; TEMP 37.1; O2SAT 97
--- NOTE | 2023-02-22 23:56 | PM.IMHP ---
History of Present Illness Date of Service: 02/22/23 Chief Complaint: Frequent falls This is a 68-year-old female with pertinent history of liver cirrhosis, hypothyroidism, Parkinson's disease, mixed hyperlipidemia was brought to the emergency department for evaluation frequent falls. Patient is a poor historian and unable to provide history. History provided by family at bedside. As per the family, patient was independent 1 month prior to presentation. She was recently admitted and discharged on 01/27 for TARUN. Since being discharged, patient has fallen about 15 times in the last 3 weeks. Unclear if she gets dizzy, lightheaded or loses consciousness prior to the fall. Physical therapy has been working with the patient at home and the family states that she has gotten weaker. No focal extremity weakness. No jerking movement of extremities, tongue bite. Unable to obtain review of systems. Review of Systems Review of Systems: Yes Unobtainable due to mental status PMFSH Medical History Anemia Cirrhosis Cirrhosis Diabetes Hx of hepatitis C Hypertension Hyperthyroidism Parkinson disease Severe sepsis Thrombocytopenia Family History Daughter Diabetes Daughter Diabetes Brother HTN (hypertension) Surgical History H/O colonoscopy History of cholecystectomy History of cystoscopy History of esophagogastroduodenoscopy (EGD) History of tonsillectomy History of tubal ligation Hx of lithotripsy Social History Household Members: Family Housing: House Are you a primary resident care aide to a significant other at home: No Do you presently have visiting nurse or other home services: Yes Unable to assess alcohol history related to: Unknown Alcohol intake: never Patient Tobacco Use Status: Never used Tobacco Second Hand Smoke Exposure: No Advance Directives: No Advance Directives Information Provided: No Advance Directives Date on File: 04/25/20 service: No Current occupational status: disabled Meds Allergies Allergy/AdvReac Type Severity Reaction Status Date / Time aspirin [ASPIRIN] Allergy Intermediate HIVES Verified 01/11/23 11:45 Penicillins [PCN] Allergy Intermediate HIVES Verified 01/11/23 11:45 Active Medications: Current Medications Pharmacy Consult (Consult Rx Perform Med Rec) 1 each MISCELLANE ONCE PRN PRN Reason: Consult order Home Medications Medication Instructions Recorded Confirmed Last Taken Type atorvastatin 20 mg tablet 20 mg PO BEDTIME 04/21/20 02/22/23 02/21/23 History carbidopa 25 mg-levodopa 100 mg 1 tab PO TID 04/21/20 02/22/23 02/22/23 History tablet gabapentin 300 mg capsule 300 mg PO TID 04/21/20 02/22/23 02/22/23 History levothyroxine 75 mcg tablet 75 mcg PO DAILY 04/21/20 02/22/23 02/22/23 History linagliptin 2.5 mg-metformin 1,000 1 tab PO BIDWM 04/21/20 02/22/23 02/22/23 History mg tablet (Jentadueto) omeprazole 20 mg capsule,delayed 20 mg PO DAILY 04/21/20 02/22/23 02/22/23 History release calcium carbonate 500 mg-vitamin 1 tab PO QAM 11/09/21 02/22/23 02/22/23 History D3 10 mcg (400 unit) tablet (Oyster Shell Calcium-Vitamin D3) acetaminophen 650 mg 650 mg PO Q8H PRN Pain 12/01/21 02/22/23 Unknown History tablet,extended release melatonin 5 mg tablet 5 mg PO BEDTIME 12/01/21 02/22/23 02/21/23 History acarbose 50 mg tablet 50 mg PO TID 09/16/22 02/22/23 02/22/23 History montelukast 10 mg tablet 10 mg PO BEDTIME 09/16/22 02/22/23 02/21/23 History trazodone 50 mg tablet 50 mg PO BEDTIME 01/05/23 02/22/23 02/21/23 History lactulose 10 gram/15 mL oral 30 ml PO DAILY 02/22/23 02/22/23 02/22/23 History solution Physical Exam Vital Signs and Narrative: Vital Signs: Last Vital Signs Temp 98.7 F 02/22/23 23:48 Pulse 99 02/22/23 23:48 Resp 17 02/22/23 23:48 BP 123/58 L 02/22/23 23:48 Pulse Ox 97 02/22/23 23:48 O2 Del Method Room Air 02/22/23 23:48 BMI result Body Mass Index 28.4 Elderly female lying in bed in no distress Neck supple, no JVD Regular rate and rhythm, S1-S2 heard Regular breath sounds bilaterally, no wheezing or crackles appreciated Abdomen soft nontender, no guarding, no rigidity Patient is awake, alert and oriented to self, place, disoriented to time and person ; no focal motor deficit Psych: Normal mood Results Labs 02/22/23 17:34 02/22/23 17:34 Labs: Laboratory Results - last 24 hr 02/22/23 02/22/23 02/22/23 17:34 17:34 17:34 MCV 101.5 H MCH 34.5 H MCHC 33.9 RDW 14.9 Plt Count 50 L MPV 12.0 Immature Gran % (Auto) 0.4 Neut % (Auto) 54.2 Lymph % (Auto) 25.6 Carlton % (Auto) 16.0 H Eos % (Auto) 3.4 Baso % (Auto) 0.4 Lymph # (Auto) 1.2 Carlton # (Auto) 0.8 Eos # (Auto) 0.2 Baso # (Auto) 0.0 Abs Immat Gran (auto) 0.02 Absolute Neuts (auto) 2.5 Absolute Nucleated RBC 0.000 Nucleated RBC % (auto) 0.0 PT INR APTT VBG pH VBG pCO2 VBG pO2 VBG HCO3 VBG O2 Saturation VBG Base Excess Anion Gap 27 H Estim Creat Clear Calc 53.7 Estimated GFR 56 Random Glucose 103 Lactic Acid Calcium 10.6 H D Total Bilirubin 5.3 H AST 107 H ALT 49 H Alkaline Phosphatase 130 H Ammonia 77 H Total Creatine Kinase Total Protein 7.7 Albumin 2.5 L Lipase 49 Procalcitonin 0.07 Urine Color Urine Appearance Urine pH Ur Specific [place] Urine Protein Urine Glucose (UA) Urine Ketones Urine Blood Urine Nitrite Ur Leukocyte Esterase Urine RBC Urine WBC Ur Squamous Epith Cells Urine Bacteria Hyaline Casts 02/22/23 02/22/23 02/22/23 17:34 17:34 17:59 MCV MCH MCHC RDW Plt Count MPV Immature Gran % (Auto) Neut % (Auto) Lymph % (Auto) Carlton % (Auto) Eos % (Auto) Baso % (Auto) Lymph # (Auto) Carlton # (Auto) Eos # (Auto) Baso # (Auto) Abs Immat Gran (auto) Absolute Neuts (auto) Absolute Nucleated RBC Nucleated RBC % (auto) PT 20.7 H INR 1.7 H APTT 42.5 H VBG pH VBG pCO2 VBG pO2 VBG HCO3 VBG O2 Saturation VBG Base Excess Anion Gap Estim Creat Clear Calc Estimated GFR Random Glucose Lactic Acid Calcium Total Bilirubin AST ALT Alkaline Phosphatase Ammonia Total Creatine Kinase 1005 H Total Protein Albumin Lipase Procalcitonin Urine Color Yellow Urine Appearance Clear Urine pH 5.5 Ur Specific [place] 1.015 Urine Protein Negative Urine Glucose (UA) Negative Urine Ketones Trace Urine Blood Negative Urine Nitrite Negative Ur Leukocyte Esterase Trace H Urine RBC 0-2 Urine WBC 6-10 H Ur Squamous Epith Cells 3-5 Urine Bacteria Trace Hyaline Casts 3-5 02/22/23 02/22/23 02/22/23 19:37 19:37 21:28 MCV MCH MCHC RDW Plt Count MPV Immature Gran % (Auto) Neut % (Auto) Lymph % (Auto) Carlton % (Auto) Eos % (Auto) Baso % (Auto) Lymph # (Auto) Carlton # (Auto) Eos # (Auto) Baso # (Auto) Abs Immat Gran (auto) Absolute Neuts (auto) Absolute Nucleated RBC Nucleated RBC % (auto) PT INR APTT VBG pH 7.40 VBG pCO2 32 VBG pO2 58 VBG HCO3 20 L VBG O2 Saturation 84.0 VBG Base Excess -3.1 Anion Gap Estim Creat Clear Calc Estimated GFR Random Glucose Lactic Acid 12.6 H* 11.8 H* Calcium Total Bilirubin AST ALT Alkaline Phosphatase Ammonia Total Creatine Kinase Total Protein Albumin Lipase Procalcitonin Urine Color Urine Appearance Urine pH Ur Specific [place] Urine Protein Urine Glucose (UA) Urine Ketones Urine Blood Urine Nitrite Ur Leukocyte Esterase Urine RBC Urine WBC Ur Squamous Epith Cells Urine Bacteria Hyaline Casts Imaging Radiologist's Impressions: Impressions Cervical Spine CT 02/22/23 17:51 IMPRESSION: 1. Small posterior skull vertex hematoma without acute intracranial abnormalities. 2. No acute maxillofacial fractures. 3. No acute cervical fractures or malalignment. Face CT 02/22/23 17:51 IMPRESSION: 1. Small posterior skull vertex hematoma without acute intracranial abnormalities. 2. No acute maxillofacial fractures. 3. No acute cervical fractures or malalignment. Head CT 02/22/23 17:51 IMPRESSION: 1. Small posterior skull vertex hematoma without acute intracranial abnormalities. 2. No acute maxillofacial fractures. 3. No acute cervical fractures or malalignment. Hip/Pelvis X-Ray 02/22/23 18:38 IMPRESSION: No evidence of an acute osseous injury. Mild degenerative changes as described above. Incidental benign-appearing sclerotic lesion right iliac bone. Lumbar Spine X-Ray 02/22/23 20:05 IMPRESSION: No evidence of an acute osseous injury. Mild degenerative changes as described above. Incidental benign-appearing sclerotic lesion right iliac bone. Chest X-Ray 02/22/23 20:10 IMPRESSION: Unremarkable examination. Abdomen/Pelvis CTA 02/22/23 22:43 IMPRESSION: 1. No evidence of significant mesenteric stenoses 2. No evidence of bowel edema to suggest ischemia. 3. Nodular cirrhotic-appearing liver with associated splenomegaly. 4. Other incidental findings as described above. Fleischner guidelines were followed. Assessment and Plan (1) Falls frequently: Status: Acute Plan This is a 68-year-old female with pertinent history of liver cirrhosis, hypothyroidism, Parkinson's disease, mixed hyperlipidemia was brought to the emergency department for evaluation frequent falls. #. Frequent falls with generalized weakness. Unclear etiology. Debility in the setting of recent hospitalization versus progression of Parkinson's disease. Consulting Neurology, appreciate assistance. Consulting PT/OT to evaluate and treat. Obtaining B12 and TSH. Obtain orthostatic vital signs #. Lactic acidosis. No sepsis. Likely due to metformin use and liver disease. #. Liver cirrhosis. Continue diuretics and lactulose #. Thrombocytopenia due to above. #. Parkinson's disease. On Sinemet #. Hypothyroidism. On Synthroid #. Cvu-[id number]-uxdloeyet diabetes mellitus. Initiating Accu-Cheks with sliding scale insulin Med rec pending DVT prophylaxis: Mechanical. Defer Lovenox due to thrombocytopenia Full code Time Spent With Patient Time: Total time managing care of this patient today ____ minutes. Quality Stroke Does the patient have a stroke diagnosis?: No VTE Prior VTE?: No VTE Risk Level:: Medical - moderate - high VTE Device Contraindication: N/A - Device Ordered VTE Drug Contraindication: Treatment Not Indicated
[2023-02-22 23:58] LABS: Beta-Hydroxybutyrate 0.75 mmol/L (0.02-0.27)
[2023-02-23] MEDS: 0.9 % Sodium Chloride Flush 3 ML SYRINGE IVFLUSH ×4 (00:16→23:49)
[2023-02-23 01:09] LABS: Thyroid Stimulating Hormone 0.82 uIU/mL (0.32-4.0)
[2023-02-23 01:16] LABS: Vitamin B12 1170 pg/mL (200-900)
[2023-02-23 01:30] VITALS: BP 122/59; PULSE 102; RESP 14; TEMP 37.1; O2SAT 97
--- NOTE | 2023-02-23 02:56 | PC.NURSE ---
Pt arrived in ED Overflow from ED around 01:30. Pt is alert but sleepy. Pt slid from stretcher to bed with staff assist and then repositioned. VSS. Pt sleeping comfortably with purewick in place. Bed alarm on for patient safety. Call hagan and belongings within reach. Will continue to monitor.
[2023-02-23 05:13] LABS: MANUAL DIFF FLAG NO
[2023-02-23 05:16] LABS: Basophils Percent Auto 0.3 % (0-2); Eosinophils Absolute Auto 0.2 X10*3/uL (0.0-0.4); Eosinophils Percent Auto 4.4 % (0-4); Hematocrit 30.9 % (37.0-47.0); Hemoglobin 10.7 g/dl (12.0-16.0); Imm Gran Abs Auto 0.01 X10*3/uL (0.00-0.03); Imm Gran Pct Auto 0.3 % (0.0-0.4); Lymphocytes Percent Auto 27.5 % (20-40); Mean Corpuscular HGB Conc 34.6 g/dl (31.0-35.0); Mean Corpuscular Hemoglobin 35.2 pg (27.0-33.0); Mean Corpuscular Volume 101.6 fL (80.0-98.0); Mean Platelet Volume 11.5 fL (9.4-12.3); Monocytes Absolute Auto 0.5 X10*3/uL (0.1-1.2); Monocytes Percent Auto 14.6 % (2-11); Neutrophils Absolute Auto 1.9 x10*3/uL (2.0-8.3); Neutrophils Percent Auto 52.9 % (45-73); Platelet Count 45 X10*3/uL (160-400); Red Blood Count 3.04 X10*6/uL (4.20-5.50); Red Cell Distribution Width 14.9 % (11.0-16.0); White Blood Count 3.6 X10*3/uL (4.8-10.8)
[2023-02-23 05:26] LABS: Lactic Acid 5.4 mmol/L (0.5-2.0)
--- NOTE | 2023-02-23 05:29 | PC.NURSE ---
02/23/2023, 05:30, critical lactic acid 5.[address] Benson. Will pass along in report.
[2023-02-23 05:31] LABS: Anion Gap 20 (12-20); Blood Urea Nitrogen 18 mg/dL (9-16); Calcium 9.7 mg/dL (8.4-10.2); Carbon Dioxide 21 mmol/L (22-29); Chloride 102 mmol/L (96-108); Creatinine Clr Calc Pharmacy 61.9; Estimated Glomerular Filt Rate > 60; Glucose Random 107 mg/dL (60-115); Potassium 4.2 mmol/L (3.3-5.1); Sodium 139 mmol/L (135-145)
[2023-02-23 05:32] VITALS: BP 113/59; PULSE 96; RESP 14; TEMP 36; O2SAT 98
[2023-02-23 07:11] LABS: Reflex Lactate? Lactic Acid Added
[2023-02-23 07:40] LABS: Glucose, Whole Blood 100 mg/dL (60-115)
[2023-02-23 07:53] VITALS: BP 110/46; PULSE 98; RESP 16; TEMP 35.9; O2SAT 99
[2023-02-23 09:11] LABS: ~Lactic Acid-LAB USE ONLY 4.7 mmol/L (0.5-2.0)
[2023-02-23] MEDS: Bumetanide 1 MG TABLET 0.5 MG PO (10:09)
[2023-02-23] MEDS: Lactulose 20 GM/30 ML SOLUTION PO (10:10)
[2023-02-23] MEDS: Carbidopa/Levodopa 25/100 TABLET 1 TAB PO ×3 (10:10→22:08)
[2023-02-23 10:36] LABS: Reflex Lactate? 2 Y
--- NOTE | 2023-02-23 10:47 | HO.PM.IMPN ---
Subjective Subjective Date of Service: 02/23/23 Interval History: falls, weakness Physical Exam Vital Signs: Vital Signs: Last Vital Signs Temp 96.7 F L 02/23/23 07:53 Pulse 98 02/23/23 07:53 Resp 16 02/23/23 07:53 BP 110/46 L 02/23/23 07:53 Pulse Ox 99 02/23/23 07:53 O2 Del Method Room Air 02/23/23 07:53 BMI result Body Mass Index 28.4 Const: General: cooperative, comfortable, no acute distress, alert, awake and acute distress Nutritional Appearance: overweight Orientation/consciousness: patient oriented x3 Resp: Effort & Inspection: normal respiratory effort, able to speak in complete sentences, no respiratory distress and no use of accessory muscles Auscultation: clear to auscultation bilaterally Cardio: Rate: regular rate Heart sounds: S1 normal heart sound present and S2 normal heart sound present GI: Inspection: No distended Palpation (GI): Soft to palpation and nontender Neuro: General: patient oriented x3, moves all extremities and CN's II-XI intact bilaterally Extrem: General: Yes no pedal edema Objective Data Active Medications Acetaminophen (Acetaminophen 325 Mg Tablet) 650 mg PO Q6H PRN PRN Reason: Pain, Mild (Pain Scale 1-3) Bumetanide (Bumetanide 1 Mg Tablet) 0.5 mg PO DAILY [facility]; Protocol Last Admin: 02/23/23 10:09 Dose: 0.5 mg Documented By: ABEBE Carbidopa/Levodopa (Carbidopa/Levodopa 25/100 Tablet) 1 tab PO TID [facility] Last Admin: 02/23/23 10:10 Dose: 1 tab Documented By: ABEBE Dextrose (Dextrose 50 % 25 Gm/50 Ml Syringe) 25 gm IVPUSH Q15M PRN; Protocol PRN Reason: per Hypoglycemia Standing Ord. Glucose (Glucose Gel 15 Gm Gel..Gram.) 15 gm PO Q15M PRN; Protocol PRN Reason: per Hypoglycemia Standing Ord. Insulin Human Lispro (Insulin Lispro 100 Unit/Ml 3 Ml Vial) 0 unit SUBCUT QIDACHS [facility]; Protocol Last Admin: 02/23/23 07:59 Dose: Not Given Documented By: ABEBE Non-Admin Reason: No Insulin Coverage Lactulose (Lactulose 20 Gm/30 Ml Solution) 20 gm PO DAILY [facility] Last Admin: 02/23/23 10:10 Dose: 20 gm Documented By: ABEBE Levothyroxine Sodium (Levothyroxine Sodium 75 Mcg Tablet) 75 mcg PO DAILY@0600 [facility] Melatonin (Melatonin 3 Mg Tablet) 6 mg PO BEDTIME PRN PRN Reason: Insomnia Montelukast Sodium (Montelukast Sodium 10 Mg Tablet) 10 mg PO BEDTIME [facility] Omeprazole (Omeprazole 20 Mg Capsule.Dr) 20 mg PO DAILY@0630 [facility] Ondansetron HCl (Ondansetron Hcl 4 Mg/2 Ml Vial) 4 mg IVPUSH Q8H PRN PRN Reason: Nausea and Vomiting Pharmacy Consult (Consult Rx Perform Med Rec) 1 each MISCELLANE ONCE PRN PRN Reason: Consult order Sodium Chloride (0.9 % Sodium Chloride Flush 3 Ml Syringe) 3 ml IVFLUSH QSHIFT [facility] Last Admin: 02/23/23 08:04 Dose: 3 ml Documented By: ABEBE Spironolactone (Spironolactone 25 Mg Tablet) 25 mg PO BID [facility]; Protocol Labs 02/23/23 05:03 02/23/23 05:03 Labs: Laboratory Results - last 24 hr 02/22/23 02/22/23 02/22/23 17:34 17:34 17:34 MCV 101.5 H MCH 34.5 H MCHC 33.9 RDW 14.9 Plt Count 50 L MPV 12.0 Immature Gran % (Auto) 0.4 Neut % (Auto) 54.2 Lymph % (Auto) 25.6 [place] % (Auto) 16.0 H Eos % (Auto) 3.4 Baso % (Auto) 0.4 Lymph # (Auto) 1.2 [place] # (Auto) 0.8 Eos # (Auto) 0.2 Baso # (Auto) 0.0 Abs Immat Gran (auto) 0.02 Absolute Neuts (auto) 2.5 Absolute Nucleated RBC 0.000 Nucleated RBC % (auto) 0.0 PT INR APTT VBG pH VBG pCO2 VBG pO2 VBG HCO3 VBG O2 Saturation VBG Base Excess Anion Gap 27 H Estim Creat Clear Calc 53.7 Estimated GFR 56 POC Glucose Random Glucose 103 Lactic Acid Lactic Acid F/U @ 2Hr Calcium 10.6 H D Total Bilirubin 5.3 H AST 107 H ALT 49 H Alkaline Phosphatase 130 H Ammonia 77 H Total Creatine Kinase Total Protein 7.7 Albumin 2.5 L Lipase 49 Vitamin B12 Beta-Hydroxybutyrate 0.75 H Procalcitonin 0.07 TSH Urine Color Urine Appearance Urine pH Ur Specific [place] Urine Protein Urine Glucose (UA) Urine Ketones Urine Blood Urine Nitrite Ur Leukocyte Esterase Urine RBC Urine WBC Ur Squamous Epith Cells Urine Bacteria Hyaline Casts 02/22/23 02/22/23 02/22/23 17:34 17:34 17:59 MCV MCH MCHC RDW Plt Count MPV Immature Gran % (Auto) Neut % (Auto) Lymph % (Auto) [place] % (Auto) Eos % (Auto) Baso % (Auto) Lymph # (Auto) [place] # (Auto) Eos # (Auto) Baso # (Auto) Abs Immat Gran (auto) Absolute Neuts (auto) Absolute Nucleated RBC Nucleated RBC % (auto) PT 20.7 H INR 1.7 H APTT 42.5 H VBG pH VBG pCO2 VBG pO2 VBG HCO3 VBG O2 Saturation VBG Base Excess Anion Gap Estim Creat Clear Calc Estimated GFR POC Glucose Random Glucose Lactic Acid Lactic Acid F/U @ 2Hr Calcium Total Bilirubin AST ALT Alkaline Phosphatase Ammonia Total Creatine Kinase 1005 H Total Protein Albumin Lipase Vitamin B12 Beta-Hydroxybutyrate Procalcitonin TSH Urine Color Yellow Urine Appearance Clear Urine pH 5.5 Ur Specific [place] 1.015 Urine Protein Negative Urine Glucose (UA) Negative Urine Ketones Trace Urine Blood Negative Urine Nitrite Negative Ur Leukocyte Esterase Trace H Urine RBC 0-2 Urine WBC 6-10 H Ur Squamous Epith Cells 3-5 Urine Bacteria Trace Hyaline Casts 3-5 02/22/23 02/22/23 02/22/23 19:37 19:37 21:28 MCV MCH MCHC RDW Plt Count MPV Immature Gran % (Auto) Neut % (Auto) Lymph % (Auto) [place] % (Auto) Eos % (Auto) Baso % (Auto) Lymph # (Auto) [place] # (Auto) Eos # (Auto) Baso # (Auto) Abs Immat Gran (auto) Absolute Neuts (auto) Absolute Nucleated RBC Nucleated RBC % (auto) PT INR APTT VBG pH 7.40 VBG pCO2 32 VBG pO2 58 VBG HCO3 20 L VBG O2 Saturation 84.0 VBG Base Excess -3.1 Anion Gap Estim Creat Clear Calc Estimated GFR POC Glucose Random Glucose Lactic Acid 12.6 H* 11.8 H* Lactic Acid F/U @ 2Hr Calcium Total Bilirubin AST ALT Alkaline Phosphatase Ammonia Total Creatine Kinase Total Protein Albumin Lipase Vitamin B12 Beta-Hydroxybutyrate Procalcitonin TSH Urine Color Urine Appearance Urine pH Ur Specific [place] Urine Protein Urine Glucose (UA) Urine Ketones Urine Blood Urine Nitrite Ur Leukocyte Esterase Urine RBC Urine WBC Ur Squamous Epith Cells Urine Bacteria Hyaline Casts 02/23/23 02/23/23 02/23/23 00:26 00:26 05:03 MCV MCH MCHC RDW Plt Count MPV Immature Gran % (Auto) Neut % (Auto) Lymph % (Auto) [place] % (Auto) Eos % (Auto) Baso % (Auto) Lymph # (Auto) [place] # (Auto) Eos # (Auto) Baso # (Auto) Abs Immat Gran (auto) Absolute Neuts (auto) Absolute Nucleated RBC Nucleated RBC % (auto) PT INR APTT VBG pH VBG pCO2 VBG pO2 VBG HCO3 VBG O2 Saturation VBG Base Excess Anion Gap Estim Creat Clear Calc Estimated GFR POC Glucose Random Glucose Lactic Acid 5.4 H* Lactic Acid F/U @ 2Hr Calcium Total Bilirubin AST ALT Alkaline Phosphatase Ammonia Total Creatine Kinase Total Protein Albumin Lipase Vitamin B12 1170 H Beta-Hydroxybutyrate Procalcitonin TSH 0.82 Urine Color Urine Appearance Urine pH Ur Specific [place] Urine Protein Urine Glucose (UA) Urine Ketones Urine Blood Urine Nitrite Ur Leukocyte Esterase Urine RBC Urine WBC Ur Squamous Epith Cells Urine Bacteria Hyaline Casts 02/23/23 02/23/23 02/23/23 05:03 05:03 05:03 MCV 101.6 H MCH 35.2 H MCHC 34.6 RDW 14.9 Plt Count 45 L MPV 11.5 Immature Gran % (Auto) 0.3 Neut % (Auto) 52.9 Lymph % (Auto) 27.5 [place] % (Auto) 14.6 H Eos % (Auto) 4.4 H Baso % (Auto) 0.3 Lymph # (Auto) 1.0 L [place] # (Auto) 0.5 Eos # (Auto) 0.2 Baso # (Auto) 0.0 Abs Immat Gran (auto) 0.01 Absolute Neuts (auto) 1.9 L Absolute Nucleated RBC 0.000 Nucleated RBC % (auto) 0.0 PT INR APTT VBG pH VBG pCO2 VBG pO2 VBG HCO3 VBG O2 Saturation VBG Base Excess Anion Gap 20 Estim Creat Clear Calc 61.9 Estimated GFR > 60 POC Glucose Random Glucose 107 Lactic Acid Lactic Acid F/U @ 2Hr Calcium 9.7 D Total Bilirubin AST ALT Alkaline Phosphatase Ammonia Total Creatine Kinase 894 H Total Protein Albumin Lipase Vitamin B12 Beta-Hydroxybutyrate Procalcitonin TSH Urine Color Urine Appearance Urine pH Ur Specific [place] Urine Protein Urine Glucose (UA) Urine Ketones Urine Blood Urine Nitrite Ur Leukocyte Esterase Urine RBC Urine WBC Ur Squamous Epith Cells Urine Bacteria Hyaline Casts 02/23/23 02/23/23 07:37 08:31 MCV MCH MCHC RDW Plt Count MPV Immature Gran % (Auto) Neut % (Auto) Lymph % (Auto) [place] % (Auto) Eos % (Auto) Baso % (Auto) Lymph # (Auto) [place] # (Auto) Eos # (Auto) Baso # (Auto) Abs Immat Gran (auto) Absolute Neuts (auto) Absolute Nucleated RBC Nucleated RBC % (auto) PT INR APTT VBG pH VBG pCO2 VBG pO2 VBG HCO3 VBG O2 Saturation VBG Base Excess Anion Gap Estim Creat Clear Calc Estimated GFR POC Glucose 100 Random Glucose Lactic Acid Lactic Acid F/U @ 2Hr 4.7 H* Calcium Total Bilirubin AST ALT Alkaline Phosphatase Ammonia Total Creatine Kinase Total Protein Albumin Lipase Vitamin B12 Beta-Hydroxybutyrate Procalcitonin TSH Urine Color Urine Appearance Urine pH Ur Specific [place] Urine Protein Urine Glucose (UA) Urine Ketones Urine Blood Urine Nitrite Ur Leukocyte Esterase Urine RBC Urine WBC Ur Squamous Epith Cells Urine Bacteria Hyaline Casts Assessment and Plan (1) Falls frequently: Status: Acute Plan 68F PMH HCV cirrhosis, parkinsons disease, hypothyroid, hld, DM, history of morbid obesity (now with 15kg weight loss since 10/2022), presented with falls falls due to multifactorila frailty, parkinsons, cirrhosis PT eval acute on chronic lactic acidosis due to liver disease, metformin not sepsis, lactic acid back to baseline DM insulin hold orals hcv cirrhosis with pancytopenia, history of hepatic encephalopathy bumex, aldactone, lactulose history of morbid obesity now with significant weight loss, likely due to progression of above monitor parkinsons sinemet hypothryoid synthroid dvt prophylaxis - mechanical due to significant thrombocytopenia in liver cirrhosis full code reason for continued hospitalization:frequent falls, safe dispo Time Spent With Patient Time: Total time managing care of this patient today ____ minutes. Quality Stroke Does the patient have a stroke diagnosis?: No VTE Prior VTE?: No VTE Risk Level:: Medical - moderate - high VTE Device Contraindication: N/A - Device Ordered VTE Drug Contraindication: Treatment Not Indicated
[2023-02-23 11:18] LABS: Glucose, Whole Blood 200 mg/dL (60-115)
[2023-02-23] MEDS: Insulin Lispro 100 UNIT/ML 3 ML VIAL SUBCUT ×2 (11:22→16:10)
--- NOTE | 2023-02-23 11:57 | P.CNNE_ITS ---
History of Present Illness Data of Consult Service Date: 02/23/23 Primary Care Provider: MD DANA Esparza Reason for consult: Difficulty walking 68 years old woman I was asked to see for possibility of Parkinson's disease. She suffered from liver cirrhosis and hyperammonemia. She was taking levodopa 3 times a day. Daughter stated that there was probably not much wrong with the memory but she did not have control on her bladder function. She was walking with a walker. There was no significant complain of back pain or leg pain. Her CPK level was high Review of Systems Review of Systems: Loss of bladder control PMFSH Past Medical History Medical History Anemia Cirrhosis Cirrhosis Diabetes Hx of hepatitis C Hypertension Hyperthyroidism Parkinson disease Severe sepsis Thrombocytopenia Family History Family History Daughter Diabetes Daughter Diabetes Brother HTN (hypertension) Surgical History Surgical History H/O colonoscopy History of cholecystectomy History of cystoscopy History of esophagogastroduodenoscopy (EGD) History of tonsillectomy History of tubal ligation Hx of lithotripsy Social History Social History Household Members: Family Housing: House Are you a primary doggy daycare activities director to a significant other at home: No Do you presently have visiting nurse or other home services: Yes Unable to assess alcohol history related to: Unknown Alcohol intake: never Patient Tobacco Use Status: Never used Tobacco Second Hand Smoke Exposure: No Advance Directives Date on File: 04/25/20 service: No Current occupational status: disabled Meds Allergies Allergy/AdvReac Type Severity Reaction Status Date / Time aspirin [ASPIRIN] Allergy Intermediate HIVES Verified 01/11/23 11:45 Penicillins [PCN] Allergy Intermediate HIVES Verified 01/11/23 11:45 Active Medications: Current Medications Acetaminophen (Acetaminophen 325 Mg Tablet) 650 mg PO Q6H PRN PRN Reason: Pain, Mild (Pain Scale 1-3) Bumetanide (Bumetanide 1 Mg Tablet) 0.5 mg PO DAILY [facility]; Protocol Last Admin: 02/23/23 10:09 Dose: 0.5 mg Carbidopa/Levodopa (Carbidopa/Levodopa 25/100 Tablet) 1 tab PO TID [facility] Last Admin: 02/23/23 10:10 Dose: 1 tab Dextrose (Dextrose 50 % 25 Gm/50 Ml Syringe) 25 gm IVPUSH Q15M PRN; Protocol PRN Reason: per Hypoglycemia Standing Ord. Glucose (Glucose Gel 15 Gm Gel..Gram.) 15 gm PO Q15M PRN; Protocol PRN Reason: per Hypoglycemia Standing Ord. Insulin Human Lispro (Insulin Lispro 100 Unit/Ml 3 Ml Vial) 0 unit SUBCUT QIDACHS [facility]; Protocol Last Admin: 02/23/23 11:22 Dose: 2 unit Lactulose (Lactulose 20 Gm/30 Ml Solution) 20 gm PO DAILY [facility] Last Admin: 02/23/23 10:10 Dose: 20 gm Levothyroxine Sodium (Levothyroxine Sodium 75 Mcg Tablet) 75 mcg PO DAILY@0600 [facility] Melatonin (Melatonin 3 Mg Tablet) 6 mg PO BEDTIME PRN PRN Reason: Insomnia Montelukast Sodium (Montelukast Sodium 10 Mg Tablet) 10 mg PO BEDTIME [facility] Omeprazole (Omeprazole 20 Mg Capsule.Dr) 20 mg PO DAILY@0630 [facility] Ondansetron HCl (Ondansetron Hcl 4 Mg/2 Ml Vial) 4 mg IVPUSH Q8H PRN PRN Reason: Nausea and Vomiting Pharmacy Consult (Consult Rx Perform Med Rec) 1 each MISCELLANE ONCE PRN PRN Reason: Consult order Sodium Chloride (0.9 % Sodium Chloride Flush 3 Ml Syringe) [address] [facility] Last Admin: 02/23/23 08:04 Dose: 3 ml Spironolactone (Spironolactone 25 Mg Tablet) 25 mg PO BID [facility]; Protocol Home Medications Medication Instructions Recorded Confirmed Last Taken Type atorvastatin 20 mg tablet 20 mg PO BEDTIME 04/21/20 02/22/23 02/21/23 History carbidopa 25 mg-levodopa 100 mg 1 tab PO TID 04/21/20 02/22/23 02/22/23 History tablet gabapentin 300 mg capsule 300 mg PO TID 04/21/20 02/22/23 02/22/23 History levothyroxine 75 mcg tablet 75 mcg PO DAILY 04/21/20 02/22/23 02/22/23 History linagliptin 2.5 mg-metformin 1,000 1 tab PO BIDWM 04/21/20 02/22/23 02/22/23 History mg tablet (Jentadueto) omeprazole 20 mg capsule,delayed 20 mg PO DAILY 04/21/20 02/22/23 02/22/23 History release calcium carbonate 500 mg-vitamin 1 tab PO QAM 11/09/21 02/22/23 02/22/23 History D3 10 mcg (400 unit) tablet (Oyster Shell Calcium-Vitamin D3) acetaminophen 650 mg 650 mg PO Q8H PRN Pain 12/01/21 02/22/23 Unknown History tablet,extended release melatonin 5 mg tablet 5 mg PO BEDTIME 12/01/21 02/22/23 02/21/23 History acarbose 50 mg tablet 50 mg PO TID 09/16/22 02/22/23 02/22/23 History montelukast 10 mg tablet 10 mg PO BEDTIME 09/16/22 02/22/23 02/21/23 History trazodone 50 mg tablet 50 mg PO BEDTIME 01/05/23 02/22/23 02/21/23 History lactulose 10 gram/15 mL oral 30 ml PO DAILY 02/22/23 02/22/23 02/22/23 History solution Physical Exam Vital Signs: Vital Signs: Last Vital Signs Temp 96.7 F L 02/23/23 07:53 Pulse 98 02/23/23 07:53 Resp 16 02/23/23 07:53 BP 110/46 L 02/23/23 07:53 Pulse Ox 99 02/23/23 07:53 O2 Del Method Room Air 02/23/23 07:53 BMI result Body Mass Index 28.4 Neuro: Other: She is alert and awake with decreased facial expression and flat affect. There was no obvious tremor. She was walking and then slow cautious small stab gait with walker. Deep tendon reflexes were absent. Results Labs 02/23/23 05:03 02/23/23 05:03 Labs: Short CBC 02/22/23 02/23/23 Range/Units 17:34 05:03 WBC 4.7 L 3.6 L (4.8-10.8) X10*3/uL Hgb 11.3 L 10.7 L (12.0-16.0) g/dl Hct 33.3 L 30.9 L (37.0-47.0) % Plt Count 50 L 45 L (160-400) X10*3/uL BMP 02/22/23 02/23/23 17:34 05:03 Sodium 139 139 Potassium 4.4 4.2 Chloride 100 102 Carbon Dioxide 16 L 21 L BUN 17 H 18 H Creatinine 0.98 0.85 Calcium 10.6 H D 9.7 D Cardiac Enzymes 02/22/23 02/23/23 Range/Units 17:34 05:03 Total Creatine Kinase 1005 H 894 H (26-140) U/L Liver Function 02/22/23 Range/Units 17:34 Total Bilirubin 5.3 H (0.0-1.0) mg/dL AST 107 H (5-31) U/L ALT 49 H (0-31) U/L Alkaline Phosphatase 130 H (39-117) U/L Albumin 2.5 L (3.5-5.0) g/dL Urine 02/22/23 Range/Units 17:59 Urine Color Yellow Urine Appearance Clear Urine pH 5.5 (5.0-9.0) Ur Specific [place] 1.015 (1.005-1.025) Urine Protein Negative (Neg-Trace) mg/dL Urine Glucose (UA) Negative (Negative) mg/dL Noncontrast head CT did not reveal any significant abnormality. Microbiology Microbiology Results: Microbiology 02/22/23 Unknown Urine clean catch - Urine rojas top Urine Culture - Final Assessment and Plan (1) Hepatic encephalopathy: Status: Acute (2) Multifactorial gait disorder: Status: Acute 68 years old woman with underlying diagnosis of hepatic encephalopathy related to cirrhosis and hyperammonemia. She was given a diagnosis of Parkinson's [facility] and was taking carbidopa levodopa 3 times a day. This diagnosis at this time was difficult to confirm but there were no clear-cut signs of Parkinson's. There were signs of peripheral neuropathy but this seems to be a central component, with fair possibility of psychological component, associated with hepatic encephalopathy. Mainstay of management is correction of high ammonia level. As far as issue of Parkinson's is concerned, it should be evaluated when her ammonia level is normal in outpatient settings. Time Spent With Patient Time: Total time managing care of this patient today ____ minutes. Procedures Date of Service Date of Service: 02/23/23
[2023-02-23 12:15] VITALS: BP 122/57; PULSE 98; RESP 17; O2SAT 96
[2023-02-23 13:00] VITALS: BMI 28.4
--- NOTE | 2023-02-23 13:11 | MHC.CLN ---
NUTRITION CONSULT FOR POOR PO AND WEIGHT LOSS. DIET=REGULAR. SUPPLEMENT ENSURE TID TO PROVIDE 1050 KCALS, 60 G PROTEIN. DISCUSSED PATIENT'S WEIGHT LOSS WITH DAUGHTER. EATING ONLY SMALL AMOUNTS. WILL TAKE VANILLA ENSURE WITH ENCOURAGEMENT. UNSURE OF CAUSAL OF DECREASED INTAKE. SKIN WITH NO NOTED OPEN AREAS. DIET LIBERALIZED TO PROMOTE PO INTAKE. HAS DX DM AND TAKES DM MEDS. FOLLOW FOR INTAKE OF MEALS AND SUPPLEMENT.
[2023-02-23 15:28] VITALS: BP 110/57; PULSE 92; RESP 20; TEMP 37.1; O2SAT 96
[2023-02-23 16:17] LABS: Glucose, Whole Blood 202 mg/dL (60-115)
[2023-02-23 19:43] VITALS: BP 119/56; PULSE 92; RESP 20; TEMP 36.8; O2SAT 95
[2023-02-23 20:23] LABS: Glucose, Whole Blood 143 mg/dL (60-115)
[2023-02-23] MEDS: Spironolactone 25 MG TABLET PO (22:07)
[2023-02-23] MEDS: Montelukast Sodium 10 MG TABLET PO (22:08)
[2023-02-24 03:40] VITALS: BP 139/63; PULSE 106; RESP 20; TEMP 36.1; O2SAT 98
[2023-02-24] MEDS: Omeprazole 20 MG CAPSULE.DR PO (05:47)
[2023-02-24] MEDS: Levothyroxine Sodium 75 MCG TABLET PO (05:47)
[2023-02-24 06:05] LABS: Hematocrit 31.6 % (37.0-47.0); Hemoglobin 11.1 g/dl (12.0-16.0); Mean Corpuscular HGB Conc 35.1 g/dl (31.0-35.0); Mean Corpuscular Hemoglobin 34.8 pg (27.0-33.0); Mean Corpuscular Volume 99.1 fL (80.0-98.0); Red Blood Count 3.19 X10*6/uL (4.20-5.50); Red Cell Distribution Width 14.5 % (11.0-16.0); White Blood Count 3.6 X10*3/uL (4.8-10.8)
[2023-02-24 06:07] LABS: Platelet Count 42 X10*3/uL (160-400)
[2023-02-24 06:15] LABS: Anion Gap 19 (12-20); Blood Urea Nitrogen 18 mg/dL (9-16); Calcium 9.7 mg/dL (8.4-10.2); Carbon Dioxide 22 mmol/L (22-29); Chloride 100 mmol/L (96-108); Creatinine Clr Calc Pharmacy 37.3; Estimated Glomerular Filt Rate 37; Glucose Fasting 160 mg/dL (60-99); Potassium 3.6 mmol/L (3.3-5.1); Sodium 137 mmol/L (135-145)
[2023-02-24 06:22] LABS: Magnesium 1.2 mg/dL (1.6-2.6)
[2023-02-24] MEDS: Magnesium Sulfate/H2O 2 GM/50 ML PIGGYBACK IV (06:29)
[2023-02-24 07:08] VITALS: BP 138/65; PULSE 112; RESP 18; TEMP 37.2; O2SAT 94
[2023-02-24 07:42] LABS: Glucose, Whole Blood 156 mg/dL (60-115)
[2023-02-24] MEDS: 0.9 % Sodium Chloride Flush 3 ML SYRINGE IVFLUSH (08:29)
[2023-02-24] MEDS: Insulin Lispro 100 UNIT/ML 3 ML VIAL SUBCUT (08:29)
[2023-02-24] MEDS: 0.9 % Sodium Chloride 1,000 ML 75 ML IVCONT ×2 (08:34→19:54)
[2023-02-24] MEDS: ondansetron HCL 4 MG/2 ML VIAL IVPUSH (09:10)
--- NOTE | 2023-02-24 09:25 | P.PNIM_ITS ---
Subjective Subjective Date of Service: 02/24/23 Interval History: no new complaints Physical Exam Vital Signs: Vital Signs: Last Vital Signs Temp 98.9 F 02/24/23 07:08 Pulse 112 H 02/24/23 07:08 Resp 18 02/24/23 07:08 BP 138/65 02/24/23 07:08 Pulse Ox 94 02/24/23 07:08 O2 Del Method Room Air 02/24/23 07:08 BMI result Body Mass Index 28.4 Neuro: Other: She is alert and awake with decreased facial expression and flat affect. There was no obvious tremor. She was walking and then slow cautious small stab gait with walker. Deep tendon reflexes were absent. Objective Data Active Medications Acetaminophen (Acetaminophen 325 Mg Tablet) 650 mg PO Q6H PRN PRN Reason: Pain, Mild (Pain Scale 1-3) Bumetanide (Bumetanide 1 Mg Tablet) 0.5 mg PO DAILY [facility]; Protocol Last Admin: 02/23/23 10:09 Dose: 0.5 mg Documented By: ABEBE Carbidopa/Levodopa (Carbidopa/Levodopa 25/100 Tablet) 1 tab PO TID [facility] Last Admin: 02/24/23 08:46 Dose: Not Given Documented By: EARNEST Non-Admin Reason: pt. throw up Dextrose (Dextrose 50 % 25 Gm/50 Ml Syringe) 25 gm IVPUSH Q15M PRN; Protocol PRN Reason: per Hypoglycemia Standing Ord. Glucose (Glucose Gel 15 Gm Gel..Gram.) 15 gm PO Q15M PRN; Protocol PRN Reason: per Hypoglycemia Standing Ord. Sodium Chloride (Ns) 1,000 mls @ 75 mls/hr IVCONT .[id number] [facility] Last Admin: 02/24/23 08:34 Dose: 75 mls/hr Documented By: EARNEST Insulin Human Lispro (Insulin Lispro 100 Unit/Ml 3 Ml Vial) 0 unit SUBCUT QIDACHS [facility]; Protocol Last Admin: 02/24/23 08:29 Dose: 2 unit Documented By: EARNEST Lactulose (Lactulose 20 Gm/30 Ml Solution) 20 gm PO DAILY [facility] Last Admin: 02/24/23 08:46 Dose: Not Given Documented By: EARNEST Non-Admin Reason: pt. throw up Levothyroxine Sodium (Levothyroxine Sodium 75 Mcg Tablet) 75 mcg PO DAILY@0600 [facility] Last Admin: 02/24/23 05:47 Dose: 75 mcg Documented By: LORELEI Melatonin (Melatonin 3 Mg Tablet) 6 mg PO BEDTIME PRN PRN Reason: Insomnia Montelukast Sodium (Montelukast Sodium 10 Mg Tablet) 10 mg PO BEDTIME [facility] Last Admin: 02/23/23 22:08 Dose: 10 mg Documented By: KATI Omeprazole (Omeprazole 20 Mg Capsule.) 20 mg PO DAILY@0630 [facility] Last Admin: 02/24/23 05:47 Dose: 20 mg Documented By: LORELEI Ondansetron HCl (Ondansetron Hcl 4 Mg/2 Ml Vial) 4 mg IVPUSH Q8H PRN PRN Reason: Nausea and Vomiting Last Admin: 02/24/23 09:10 Dose: 4 mg Documented By: EARNEST Pharmacy Consult (Consult Rx Perform Med Rec) 1 each MISCELLANE ONCE PRN PRN Reason: Consult order Sodium Chloride (0.9 % Sodium Chloride Flush 3 Ml Syringe) 3 ml IVFLUSH QSHIFT [facility] Last Admin: 02/24/23 08:29 Dose: 3 ml Documented By: EARNEST Spironolactone (Spironolactone 25 Mg Tablet) 25 mg PO BID [facility]; Protocol Last Admin: 02/23/23 22:07 Dose: 25 mg Documented By: KATI Labs 02/24/23 05:03 02/24/23 05:03 Labs: Laboratory Results - last 24 hr 02/23/23 02/23/23 02/23/23 11:15 16:06 20:11 MCV MCH MCHC RDW Plt Count MPV Absolute Nucleated RBC Nucleated RBC % (auto) Anion Gap Estim Creat Clear Calc Estimated GFR POC Glucose 200 H 202 H 143 H Fasting Glucose Calcium Magnesium 02/24/23 02/24/23 02/24/23 05:03 05:03 07:38 MCV 99.1 H MCH 34.8 H MCHC 35.1 H RDW 14.5 Plt Count 42 L MPV 12.0 Absolute Nucleated RBC 0.000 Nucleated RBC % (auto) 0.0 Anion Gap 19 Estim Creat Clear Calc 37.3 Estimated GFR 37 POC Glucose 156 H Fasting Glucose 160 H Calcium 9.7 Magnesium 1.2 L* Microbiology Microbiology Results: Microbiology 02/23/23 00:26 Blood Culture - Preliminary Blood - Venous No growth after 24 hours. 02/23/23 00:26 Blood Culture - Preliminary Blood - Venous No growth after 24 hours. 02/22/23 Unknown Urine Culture - Final Urine clean catch - Urine rojas top Assessment and Plan (1) Falls frequently: Status: Acute Plan 68F PMH HCV cirrhosis, parkinsons disease, hypothyroid, hld, DM, history of morbid obesity (now with 15kg weight loss since 10/2022), presented with falls falls due to multifactorila frailty, parkinsons, cirrhosis PT eval appreciated - plan for rehab [facility] hold diuretics ivf fluids, monitor acute on chronic lactic acidosis due to liver disease, metformin not sepsis, lactic acid back to baseline DM insulin hold orals hcv cirrhosis with pancytopenia, history of hepatic encephalopathy bumex, aldactone, on hold continue lactulose history of morbid obesity now with significant weight loss, likely due to progression of above monitor parkinsons neuro appreciated - diagnosis not definitive sinemet, oupatinet follow up hypothryoid synthroid dvt prophylaxis - mechanical due to significant thrombocytopenia in liver cirrhosis full code reason for continued hospitalization:frequent falls, safe dispo, tarun Time Spent With Patient Time: Total time managing care of this patient today ____ minutes. Quality Stroke Does the patient have a stroke diagnosis?: No VTE Prior VTE?: No VTE Risk Level:: Medical - moderate - high VTE Device Contraindication: N/A - Device Ordered VTE Drug Contraindication: Treatment Not Indicated
[2023-02-24 10:08] LABS: Glucose, Whole Blood 170 mg/dL (60-115)
[2023-02-24 10:17] VITALS: BP 133/62; PULSE 101; O2SAT 95
[2023-02-24 11:29] LABS: Glucose, Whole Blood 160 mg/dL (60-115)
[2023-02-24 15:35] VITALS: BP 134/64; PULSE 95; RESP 20; TEMP 36.3; O2SAT 96
[2023-02-24 16:14] LABS: Glucose, Whole Blood 136 mg/dL (60-115)
--- NOTE | 2023-02-24 16:17 | MHC.CM.PN ---
[facility] notice now INPT IMM 02/24/23 Patient lives with her dtr a [employer] @ [facility]. Her dtr assists the pt with ADLs, medication management and appointments. Patient had a recent admit DX [facility]. She discharged to home. She has had multiple falls since discharge. DP STR. The preference for STR is a bed [facility]. A referral has been sent to the facility. Pt will need a PT eval. LENIN Jerez via BLS.
[2023-02-24 19:36] VITALS: BP 130/62; PULSE 99; RESP 18; TEMP 36; O2SAT 98
[2023-02-24] MEDS: Carbidopa/Levodopa 25/100 TABLET 1 TAB PO (19:54)
[2023-02-24] MEDS: Montelukast Sodium 10 MG TABLET PO (19:54)
[2023-02-24 20:46] LABS: Glucose, Whole Blood 137 mg/dL (60-115)
[2023-02-25 04:00] VITALS: BP 135/64; PULSE 100; RESP 18; TEMP 36.7; O2SAT 96
[2023-02-25] MEDS: Acetaminophen 325 MG TABLET 650 MG PO (04:15)
[2023-02-25] MEDS: Omeprazole 20 MG CAPSULE.DR PO (05:50)
[2023-02-25] MEDS: Levothyroxine Sodium 75 MCG TABLET PO (05:50)
[2023-02-25 06:45] LABS: Hematocrit 30.7 % (37.0-47.0); Hemoglobin 10.7 g/dl (12.0-16.0); Mean Corpuscular HGB Conc 34.9 g/dl (31.0-35.0); Mean Corpuscular Hemoglobin 34.3 pg (27.0-33.0); Mean Corpuscular Volume 98.4 fL (80.0-98.0); Mean Platelet Volume 12.1 fL (9.4-12.3); Red Blood Count 3.12 X10*6/uL (4.20-5.50); Red Cell Distribution Width 14.6 % (11.0-16.0); White Blood Count 3.5 X10*3/uL (4.8-10.8)
[2023-02-25 06:47] LABS: Platelet Count 39 X10*3/uL (160-400)
[2023-02-25 07:09] LABS: Alanine Aminotransferase 42 U/L (0-31); Alkaline Phosphatase 73 U/L (39-117); Anion Gap 15 (12-20); Aspartate Amino Transferase 148 U/L (5-31); Bilirubin Direct 1.7 mg/dL (0.0-0.5); Bilirubin Total 4.7 mg/dL (0.0-1.0); Blood Urea Nitrogen 16 mg/dL (9-16); Calcium 8.6 mg/dL (8.4-10.2); Carbon Dioxide 23 mmol/L (22-29); Chloride 107 mmol/L (96-108); Creatinine Clr Calc Pharmacy 42.1; Estimated Glomerular Filt Rate 42; Glucose Fasting 167 mg/dL (60-99); Potassium 3.8 mmol/L (3.3-5.1); Sodium 141 mmol/L (135-145); Total Protein 6.5 g/dL (6.5-8.0)
[2023-02-25 07:44] LABS: Glucose, Whole Blood 159 mg/dL (60-115)
[2023-02-25] MEDS: Insulin Lispro 100 UNIT/ML 3 ML VIAL SUBCUT ×2 (07:46→12:27)
[2023-02-25 07:47] VITALS: BP 125/63; PULSE 90; RESP 18; TEMP 36.8; O2SAT 99
[2023-02-25] MEDS: Lactulose 20 GM/30 ML SOLUTION PO (08:22)
[2023-02-25] MEDS: Carbidopa/Levodopa 25/100 TABLET 1 TAB PO ×3 (08:22→20:19)
--- NOTE | 2023-02-25 08:47 | P.PNIM_ITS ---
Subjective Subjective Date of Service: 02/25/23 Interval History: more alert, no compalints Physical Exam Vital Signs: Vital Signs: Last Vital Signs Temp 98.2 F 02/25/23 07:47 Pulse 90 02/25/23 07:47 Resp 18 02/25/23 07:47 BP 125/63 02/25/23 07:47 Pulse Ox 99 02/25/23 07:47 O2 Del Method Room Air 02/25/23 07:47 BMI result Body Mass Index 28.4 Neuro: Other: She is alert and awake with decreased facial expression and flat affect. There was no obvious tremor. She was walking and then slow cautious small stab gait with walker. Deep tendon reflexes were absent. Objective Data Active Medications Acetaminophen (Acetaminophen 325 Mg Tablet) 650 mg PO Q6H PRN PRN Reason: Pain, Mild (Pain Scale 1-3) Last Admin: 02/25/23 04:15 Dose: 650 mg Documented By: LORELEI Bumetanide (Bumetanide 1 Mg Tablet) 0.5 mg PO DAILY [facility]; Protocol Last Admin: 02/23/23 10:09 Dose: 0.5 mg Documented By: ABEBE Carbidopa/Levodopa (Carbidopa/Levodopa 25/100 Tablet) 1 tab PO TID [facility] Last Admin: 02/25/23 08:22 Dose: 1 tab Documented By: LORELEI Dextrose (Dextrose 50 % 25 Gm/50 Ml Syringe) 25 gm IVPUSH Q15M PRN; Protocol PRN Reason: per Hypoglycemia Standing Ord. Glucose (Glucose Gel 15 Gm Gel..Gram.) 15 gm PO Q15M PRN; Protocol PRN Reason: per Hypoglycemia Standing Ord. Sodium Chloride (Ns) 1,000 mls @ 75 mls/hr IVCONT .[id number] [facility] Last Admin: 02/24/23 19:54 Dose: 75 mls/hr Documented By: LORELEI Insulin Human Lispro (Insulin Lispro 100 Unit/Ml 3 Ml Vial) 0 unit SUBCUT QIDACHS [facility]; Protocol Last Admin: 02/25/23 07:46 Dose: 2 unit Documented By: LORELEI Lactulose (Lactulose 20 Gm/30 Ml Solution) 20 gm PO DAILY [facility] Last Admin: 02/25/23 08:22 Dose: 20 gm Documented By: LORELEI Levothyroxine Sodium (Levothyroxine Sodium 75 Mcg Tablet) 75 mcg PO DAILY@0600 [facility] Last Admin: 02/25/23 05:50 Dose: 75 mcg Documented By: LORELEI Melatonin (Melatonin 3 Mg Tablet) 6 mg PO BEDTIME PRN PRN Reason: Insomnia Montelukast Sodium (Montelukast Sodium 10 Mg Tablet) 10 mg PO BEDTIME [facility] Last Admin: 02/24/23 19:54 Dose: 10 mg Documented By: LORELEI Omeprazole (Omeprazole 20 Mg Capsule.Dr) 20 mg PO DAILY@0630 [facility] Last Admin: 02/25/23 05:50 Dose: 20 mg Documented By: LORELEI Ondansetron HCl (Ondansetron Hcl 4 Mg/2 Ml Vial) 4 mg IVPUSH Q8H PRN PRN Reason: Nausea and Vomiting Last Admin: 02/24/23 09:10 Dose: 4 mg Documented By: EARNEST Pharmacy Consult (Consult Rx Perform Med Rec) 1 each MISCELLANE ONCE PRN PRN Reason: Consult order Sodium Chloride (0.9 % Sodium Chloride Flush 3 Ml Syringe) 3 ml IVFLUSH QSHIFT [facility] Last Admin: 02/25/23 07:55 Dose: Not Given Documented By: LORELEI Non-Admin Reason: IV Running Spironolactone (Spironolactone 25 Mg Tablet) 25 mg PO BID [facility]; Protocol Last Admin: 02/23/23 22:07 Dose: 25 mg Documented By: KATI Labs 02/25/23 05:37 02/25/23 05:37 Labs: Laboratory Results - last 24 hr 02/24/23 02/24/23 02/24/23 10:03 11:23 15:40 MCV MCH MCHC RDW Plt Count MPV Absolute Nucleated RBC Nucleated RBC % (auto) Anion Gap Estim Creat Clear Calc Estimated GFR POC Glucose 170 H 160 H 136 H Fasting Glucose Calcium Total Bilirubin Direct Bilirubin AST ALT Alkaline Phosphatase Total Protein Albumin 02/24/23 02/25/23 02/25/23 19:34 05:37 05:37 MCV 98.4 H MCH 34.3 H MCHC 34.9 RDW 14.6 Plt Count 39 L MPV 12.1 Absolute Nucleated RBC 0.000 Nucleated RBC % (auto) 0.0 Anion Gap 15 Estim Creat Clear Calc 42.1 Estimated GFR 42 POC Glucose 137 H Fasting Glucose 167 H Calcium 8.6 D Total Bilirubin 4.7 H Direct Bilirubin 1.7 H AST 148 H ALT 42 H Alkaline Phosphatase 73 Total Protein 6.5 Albumin 2.0 L 02/25/23 07:25 MCV MCH MCHC RDW Plt Count MPV Absolute Nucleated RBC Nucleated RBC % (auto) Anion Gap Estim Creat Clear Calc Estimated GFR POC Glucose 159 H Fasting Glucose Calcium Total Bilirubin Direct Bilirubin AST ALT Alkaline Phosphatase Total Protein Albumin Microbiology Microbiology Results: Microbiology 02/23/23 00:26 Blood Culture - Preliminary Blood - Venous No growth after 48 hours. 02/23/23 00:26 Blood Culture - Preliminary Blood - Venous No growth after 48 hours. Assessment and Plan (1) Falls frequently: Status: Acute Plan 68F PMH HCV cirrhosis, parkinsons disease, hypothyroid, hld, DM, history of morbid obesity (now with 15kg weight loss since 10/2022), presented with falls falls due to multifactorial frailty, parkinsons, cirrhosis PT eval appreciated - plan for rehab TARUN holding diuretics ivf fluids, monitor - improved acute on chronic lactic acidosis due to liver disease, metformin not sepsis, lactic acid back to baseline DM insulin hold orals hcv cirrhosis with pancytopenia, history of hepatic encephalopathy bumex, aldactone, on hold continue lactulose history of morbid obesity now with significant weight loss, likely due to progression of above monitor parkinsons neuro appreciated - diagnosis not definitive sinemet, outpatient follow up hypothryoid synthroid dvt prophylaxis - mechanical due to significant thrombocytopenia in liver cirrhosis full code reason for continued hospitalization:frequent falls, safe dispo Time Spent With Patient Time: Total time managing care of this patient today ____ minutes. Quality Stroke Does the patient have a stroke diagnosis?: No VTE Prior VTE?: No VTE Risk Level:: Medical - moderate - high VTE Device Contraindication: N/A - Device Ordered VTE Drug Contraindication: Treatment Not Indicated
[2023-02-25] MEDS: 0.9 % Sodium Chloride 1,000 ML 75 ML IVCONT ×2 (09:04→22:46)
--- NOTE | 2023-02-25 09:45 | MHC.CLN ---
F/U DIET=REGULAR. SUPPLEMENT ENSURE TID TO PROVIDE 1050 KCALS, 60 G PROTEIN. DIET LIBERALIZED TO PROMOTE PO INTAKE. AVERAGE INTAKE 25%. FOLLOW FOR INTAKE OF MEALS AND SUPPLEMENT.
--- NOTE | 2023-02-25 10:13 | P.DS_ITS ---
DS: Providers Provider Date of Service: 02/27/23 Date of admission: 02/24/23 12:15 Primary care physician: Everett Ng MD Consults: 02/22/23 23:56 Consult to Neurology Routine Consulting Provider: [facility] Reason for consultation: frequent falls . ?parkinsons DS: Diagnosis Discharge Diagnosis (1) Falls frequently: Status: Acute DS: Summary Hospital Course Hospital Course: from initial hpi: 68-year-old female with pertinent history of liver cirrhosis, hypothyroidism, Parkinson's disease, mixed hyperlipidemia was brought to the emergency department for evaluation frequent falls.? Patient is a poor historian and unable to provide history.? History provided by family at bedside.? As per the family, patient was independent 1 month prior to presentation.? She was recently admitted and discharged on 01/27 for TARUN.? Since being discharged, patient has fallen about 15 times in the last 3 weeks.? Unclear if she gets dizzy, lightheaded or loses consciousness prior to the fall.? Physical therapy has been working with the patient at home and the family states that she has gotten weaker.? No focal extremity weakness.? No jerking movement of extremities, ton puja bite.? Unable to obtain review of systems. hospital course: patient was admitted for falls. likely multifactorial due to frailty, parkinsons, cirrhosis. she was seen by PT recommended STR at [facility], ervin to need less than 30 days. Course was complicated by TARUN, diuretics were held, given iv fluids and renal function improved. should continue to [facility] outpatient. for DM was given insulin. for hcv with cirrhosis, pancytopenia and hepatic encephalopathy was continued on lactulose. for history of morbid obesity, patient has had significant weight loss recently. for possible parkinsons was c ontinued on sinemet and should follow up outpatient with neuro. for hypothryoid was continued on synthroid. patient weill be discharged to snf, will need less than 30 days. Time Spent with Patient Time attestation: Total time managing care of this patient today ____ minutes. Discharge coordination time: Greater than 30 minutes Quality: Safe Use of Opioids Does Pt have an Active Cancer Diagnosis on the Problem List?: No Quality: Stroke Does the patient have a stroke diagnosis?: No Physical Exam Vital Signs: Vital Signs: Last Vital Signs Temp 98.2 F 02/25/23 07:47 Pulse 90 02/25/23 07:47 Resp 18 02/25/23 07:47 BP 125/63 02/25/23 07:47 Pulse Ox 99 02/25/23 07:47 O2 Del Method Room Air 02/25/23 07:47 BMI result Body Mass Index 28.4 Neuro: Other: She is alert and awake with decreased facial expression and flat affect. There was no obvious tremor. She was walking and then slow cautious small stab gait with walker. Deep tendon reflexes were absent. DS: Data Data Completed and Pending Labs on day of discharge: Laboratory Results - last 24 hr 02/24/23 02/24/23 02/24/23 11:23 15:40 19:34 WBC RBC Hgb Hct MCV MCH MCHC RDW Plt Count MPV Absolute Nucleated RBC Nucleated RBC % (auto) Sodium Potassium Chloride Carbon Dioxide Anion Gap BUN Creatinine Estim Creat Clear Calc Estimated GFR POC Glucose 160 H 136 H 137 H Fasting Glucose Calcium Total Bilirubin Direct Bilirubin AST ALT Alkaline Phosphatase Total Protein Albumin 02/25/23 02/25/23 02/25/23 05:37 05:37 07:25 WBC 3.5 L RBC 3.12 L Hgb 10.7 L Hct 30.7 L MCV 98.4 H MCH 34.3 H MCHC 34.9 RDW 14.6 Plt Count 39 L MPV 12.1 Absolute Nucleated RBC 0.000 Nucleated RBC % (auto) 0.0 Sodium 141 Potassium 3.8 Chloride 107 Carbon Dioxide 23 Anion Gap 15 BUN 16 Creatinine 1.25 Estim Creat Clear Calc 42.1 Estimated GFR 42 POC Glucose 159 H Fasting Glucose 167 H Calcium 8.6 D Total Bilirubin 4.7 H Direct Bilirubin 1.7 H AST 148 H ALT 42 H Alkaline Phosphatase 73 Total Protein 6.5 Albumin 2.0 L Preliminary micro results at discharge 02/23/23 00:26 Blood Culture - Preliminary Blood - Venous No growth after 48 hours. 02/23/23 00:26 Blood Culture - Preliminary Blood - Venous No growth after 48 hours. Discharge Plan Discharge Anticipated Discharge Date/Time: 02/25/23 10:07 Patient Disposition: Xfer SNF Discharge Diagnosis: falls, tarun Referrals: Everett Henning MD [Primary Care Provider] - 1 Week Discharge Medications: Continued atorvastatin 20 mg tablet 20 mg PO BEDTIME levothyroxine 75 mcg tablet 75 mcg PO DAILY omeprazole 20 mg capsule,delayed release(DR/EC) 20 mg PO DAILY carbidopa-levodopa 25-100 mg tablet 1 tab PO TID Jentadueto 2.5-1,000 mg tablet 1 tab PO BIDWM calcium carbonate-vitamin D3 [Oyster Shell Calcium-Vit D3] 500 mg-10 mcg (400 unit) tablet 1 tab PO QAM acetaminophen 650 mg Tablet Extended Release 650 mg PO Q8H PRN (Reason: Pain) melatonin 5 mg Tablet 5 mg PO BEDTIME lactulose 10 gram/15 mL solution 30 ml PO DAILY montelukast 10 mg tablet 10 mg PO BEDTIME acarbose 50 mg tablet 50 mg PO TID trazodone 50 mg tablet 50 mg PO BEDTIME Held spironolactone [Aldactone] 25 mg tablet 25 mg PO BID 30 Days Qty: 60 0RF Hold Instructions: Resume on 02/28/23. bumetanide 0.5 mg tablet 0.5 mg PO DAILY 30 Days Qty: 30 0RF Hold Instructions: Resume on 02/28/23. Discontinued gabapentin 300 mg capsule 300 mg PO TID Discharge Orders: Discharge Order (Routine); Ordered 02/27/23 Ordered By: Nathanael Hwang Diet: Advance to usual diet Activity on Discharge: As tolerated Stand Alone Forms: Patient Portal Discharge page Care Plan Goals: manage cirrhosis and parkinsons Health Concerns: cirrhosis, parkinsons, tarun Plan of Treatment: hold diuretics, monitor bmp, follow up neuro and gi Assessment: see above
[2023-02-25 11:46] LABS: Glucose, Whole Blood 193 mg/dL (60-115)
[2023-02-25] MEDS: oxyCODONE HCl Immed Release 5 MG TABLET PO (14:00)
[2023-02-25 15:38] VITALS: BP 132/63; PULSE 106; RESP 18; TEMP 36.6; O2SAT 98
--- NOTE | 2023-02-25 15:39 | MHC.CM.PN ---
EMR REVIEWED. PT REMAINS LETHARGIC/DIFFICULT TO AROUSE. FAMILY IN TO VISIT. CM WILL CONTINUE TO ATTEMPT TO DO A HCP WITH AN GANTRY RIGGER WHEN LESS LETHARGIC.
[2023-02-25 16:29] LABS: Glucose, Whole Blood 167 mg/dL (60-115)
[2023-02-25 18:57] VITALS: BP 126/60; PULSE 97; RESP 18; TEMP 36.3; O2SAT 98
[2023-02-25 20:15] LABS: Glucose, Whole Blood 149 mg/dL (60-115)
[2023-02-25] MEDS: Montelukast Sodium 10 MG TABLET PO (20:19)
[2023-02-26] MEDS: Acetaminophen 325 MG TABLET 650 MG PO ×3 (00:27→22:52)
[2023-02-26] MEDS: Melatonin 3 MG TABLET 6 MG PO (00:28)
[2023-02-26] MEDS: oxyCODONE HCl Immed Release 5 MG TABLET PO (00:51)
[2023-02-26 03:44] VITALS: BP 134/83; PULSE 94; RESP 18; TEMP 35.7; O2SAT 98
[2023-02-26] MEDS: Levothyroxine Sodium 75 MCG TABLET PO (05:04)
[2023-02-26] MEDS: Omeprazole 20 MG CAPSULE.DR PO (05:04)
[2023-02-26 05:48] LABS: Hematocrit 32.7 % (37.0-47.0); Hemoglobin 11.3 g/dl (12.0-16.0); Mean Corpuscular HGB Conc 34.6 g/dl (31.0-35.0); Mean Corpuscular Hemoglobin 34.1 pg (27.0-33.0); Mean Corpuscular Volume 98.8 fL (80.0-98.0); Mean Platelet Volume 9.9 fL (9.4-12.3); Platelet Count 47 X10*3/uL (160-400); Red Blood Count 3.31 X10*6/uL (4.20-5.50); Red Cell Distribution Width 14.6 % (11.0-16.0); White Blood Count 4.8 X10*3/uL (4.8-10.8)
[2023-02-26 06:03] LABS: Anion Gap 14 (12-20); Blood Urea Nitrogen 13 mg/dL (9-16); Calcium 8.5 mg/dL (8.4-10.2); Carbon Dioxide 20 mmol/L (22-29); Chloride 112 mmol/L (96-108); Creatinine Clr Calc Pharmacy 64.2; Estimated Glomerular Filt Rate > 60; Glucose Fasting 130 mg/dL (60-99); Potassium 3.6 mmol/L (3.3-5.1); Sodium 142 mmol/L (135-145)
[2023-02-26 07:24] VITALS: BP 127/60; PULSE 87; RESP 18; TEMP 36; O2SAT 100
[2023-02-26 07:56] LABS: Glucose, Whole Blood 128 mg/dL (60-115)
[2023-02-26] MEDS: Lactulose 20 GM/30 ML SOLUTION PO (08:21)
[2023-02-26] MEDS: Carbidopa/Levodopa 25/100 TABLET 1 TAB PO ×3 (08:21→21:24)
--- NOTE | 2023-02-26 09:56 | P.PNIM_ITS ---
Subjective Subjective Date of Service: 02/26/23 Interval History: no complaints Physical Exam Vital Signs: Vital Signs: Last Vital Signs Temp 96.8 F 02/26/23 07:24 Pulse 87 02/26/23 07:24 Resp 18 02/26/23 07:24 BP 127/60 02/26/23 07:24 Pulse Ox 100 02/26/23 07:24 O2 Del Method Room Air 02/26/23 07:24 BMI result Body Mass Index 28.4 Neuro: Other: She is alert and awake with decreased facial expression and flat affect. There was no obvious tremor. She was walking and then slow cautious small stab gait with walker. Deep tendon reflexes were absent. Objective Data Active Medications Acetaminophen (Acetaminophen 325 Mg Tablet) 650 mg PO Q6H PRN PRN Reason: Pain, Mild (Pain Scale 1-3) Last Admin: 02/26/23 06:23 Dose: 650 mg Documented By: LORELEI Bumetanide (Bumetanide 1 Mg Tablet) 0.5 mg PO DAILY [facility]; Protocol Last Admin: 02/23/23 10:09 Dose: 0.5 mg Documented By: ABEBE Carbidopa/Levodopa (Carbidopa/Levodopa 25/100 Tablet) 1 tab PO TID [facility]PL[facility] Last Admin: 02/26/23 08:21 Dose: 1 tab Documented By: HEATHER Dextrose (Dextrose 50 % 25 Gm/50 Ml Syringe) 25 gm IVPUSH Q15M PRN; Protocol PRN Reason: per Hypoglycemia Standing Ord. Glucose (Glucose Gel 15 Gm Gel..Gram.) 15 gm PO Q15M PRN; Protocol PRN Reason: per Hypoglycemia Standing Ord. Sodium Chloride (Ns) 1,000 mls @ 75 mls/hr IVCONT .[id number] REPLACED BY [facility] Last Admin: 02/25/23 22:46 Dose: 75 mls/hr Documented By: LORELEI Insulin Human Lispro (Insulin Lispro 100 Unit/Ml 3 Ml Vial) 0 unit SUBCUT QIDA [facility]; Protocol Last Admin: 02/26/23 07:47 Dose: Not Given Documented By: HEATHER Non-Admin Reason: No Insulin Coverage Lactulose (Lactulose 20 Gm/30 Ml Solution) 20 gm PO DAILY [facility] Last Admin: 02/26/23 08:21 Dose: 20 gm Documented By: HEATHER Levothyroxine Sodium (Levothyroxine Sodium 75 Mcg Tablet) 75 mcg PO DAILY@0600 [facility]PL[facility] Last Admin: 02/26/23 05:04 Dose: 75 mcg Documented By: LORELEI Melatonin (Melatonin 3 Mg Tablet) 6 mg PO BEDTIME PRN PRN Reason: Insomnia Last Admin: 02/26/23 00:28 Dose: 6 mg Documented By: LORELEI Montelukast Sodium (Montelukast Sodium 10 Mg Tablet) 10 mg PO BEDTIME REPLACED BY [facility] Last Admin: 02/25/23 20:19 Dose: 10 mg Documented By: LORELEI Omeprazole (Omeprazole 20 Mg Capsule.) 20 mg PO DAILY@0630 [facility]PL[facility]ED [facility] Last Admin: 02/26/23 05:04 Dose: 20 mg Documented By: LORELEI Ondansetron HCl (Ondansetron Hcl 4 Mg/2 Ml Vial) 4 mg IVPUSH Q8H PRN PRN Reason: Nausea and Vomiting Last Admin: 02/24/23 09:10 Dose: 4 mg Documented By: EARNEST Pharmacy Consult (Consult Rx Perform Med Rec) 1 each MISCELLANE ONCE PRN PRN Reason: Consult order Sodium Chloride (0.9 % Sodium Chloride Flush 3 Ml Syringe) 3 ml IVFLUSH QSHIFT REPLACED BY [facility] Last Admin: 02/26/23 07:48 Dose: Not Given Documented By: HEATHER Non-Admin Reason: IV Running Spironolactone (Spironolactone 25 Mg Tablet) 25 mg PO BID [facility]; Protocol Last Admin: 02/23/23 22:07 Dose: 25 mg Documented By: KATI Labs 02/26/23 05:23 02/26/23 05:23 Labs: Laboratory Results - last 24 hr 02/25/23 02/25/23 02/25/23 11:41 16:17 19:49 MCV MCH MCHC RDW Plt Count MPV Absolute Nucleated RBC Nucleated RBC % (auto) Anion Gap Estim Creat Clear Calc Estimated GFR POC Glucose 193 H 167 H 149 H Fasting Glucose Calcium 02/26/23 02/26/23 02/26/23 05:23 05:23 07:19 MCV 98.8 H MCH 34.1 H MCHC 34.6 RDW 14.6 Plt Count 47 L MPV 9.9 Absolute Nucleated RBC 0.000 Nucleated RBC % (auto) 0.0 Anion Gap 14 Estim Creat Clear Calc 64.2 Estimated GFR > 60 POC Glucose 128 H Fasting Glucose 130 H Calcium 8.5 Assessment and Plan (1) Falls frequently: Status: Acute Plan 68F PMH HCV cirrhosis, parkinsons disease, hypothyroid, hld, DM, history of morbid obesity (now with 15kg weight loss since 10/2022), presented with falls falls due to multifactorial frailty, parkinsons, cirrhosis PT eval appreciated - plan for rehab TARUN holding diuretics ivf fluids, monitor - improved acute on chronic lactic acidosis due to liver disease, metformin not sepsis, lactic acid back to baseline DM insulin hold orals hcv cirrhosis with pancytopenia, history of hepatic encephalopathy bumex, aldactone, on hold continue lactulose history of morbid obesity now with significant weight loss, likely due to progression of above monitor parkinsons neuro appreciated - diagnosis not definitive sinemet, outpatient follow up hypothryoid synthroid dvt prophylaxis - mechanical due to significant thrombocytopenia in liver cirrhosis full code reason for continued hospitalization:frequent falls, safe dispo, ivf for tarun Time Spent With Patient Time: Total time managing care of this patient today ____ minutes. Quality Stroke Does the patient have a stroke diagnosis?: No VTE Prior VTE?: No VTE Risk Level:: Medical - moderate - high VTE Device Contraindication: N/A - Device Ordered VTE Drug Contraindication: Treatment Not Indicated
[2023-02-26] MEDS: 0.9 % Sodium Chloride 1,000 ML 75 ML IVCONT (11:48)
[2023-02-26 11:51] LABS: Glucose, Whole Blood 138 mg/dL (60-115)
[2023-02-26 15:48] VITALS: BP 98/46; PULSE 89; RESP 20; TEMP 36; O2SAT 100
[2023-02-26 16:16] LABS: Glucose, Whole Blood 162 mg/dL (60-115)
[2023-02-26] MEDS: Insulin Lispro 100 UNIT/ML 3 ML VIAL SUBCUT (17:10)
[2023-02-26 19:44] VITALS: BP 130/94; PULSE 93; RESP 20; TEMP 36; O2SAT 99
[2023-02-26 20:53] LABS: Glucose, Whole Blood 123 mg/dL (60-115)
[2023-02-26] MEDS: Montelukast Sodium 10 MG TABLET PO (21:24)
[2023-02-27] MEDS: 0.9 % Sodium Chloride 1,000 ML 75 ML IVCONT (00:36)
[2023-02-27 01:37] VITALS: BP 120/58; PULSE 89; RESP 18; TEMP 36.1; O2SAT 98
[2023-02-27] MEDS: Acetaminophen 325 MG TABLET 650 MG PO (04:56)
[2023-02-27] MEDS: Omeprazole 20 MG CAPSULE.DR PO (04:56)
[2023-02-27] MEDS: Levothyroxine Sodium 75 MCG TABLET PO (04:56)
[2023-02-27 06:26] LABS: Hematocrit 31.5 % (37.0-47.0); Hemoglobin 10.7 g/dl (12.0-16.0); Mean Corpuscular Hemoglobin 34.2 pg (27.0-33.0); Mean Corpuscular Volume 100.6 fL (80.0-98.0); Mean Platelet Volume 10.7 fL (9.4-12.3); Red Blood Count 3.13 X10*6/uL (4.20-5.50); Red Cell Distribution Width 14.9 % (11.0-16.0); White Blood Count 4.2 X10*3/uL (4.8-10.8)
[2023-02-27 06:27] LABS: Platelet Count 55 X10*3/uL (160-400)
[2023-02-27 06:39] LABS: Anion Gap 14 (12-20); Blood Urea Nitrogen 11 mg/dL (9-16); Calcium 8.2 mg/dL (8.4-10.2); Carbon Dioxide 19 mmol/L (22-29); Chloride 113 mmol/L (96-108); Creatinine Clr Calc Pharmacy 77.4; Estimated Glomerular Filt Rate > 60; Glucose Fasting 157 mg/dL (60-99); Potassium 3.5 mmol/L (3.3-5.1); Sodium 142 mmol/L (135-145)
[2023-02-27 07:34] VITALS: BP 128/60; PULSE 88; RESP 18; TEMP 36.1; O2SAT 98
[2023-02-27] MEDS: Carbidopa/Levodopa 25/100 TABLET 1 TAB PO (08:00)
[2023-02-27] MEDS: Lactulose 20 GM/30 ML SOLUTION PO (08:00)
[2023-02-27 08:20] LABS: Glucose, Whole Blood 144 mg/dL (60-115)
--- NOTE | 2023-02-27 08:35 | HO.PM.IMPN ---
Subjective Subjective Date of Service: 02/27/23 Interval History: no complaints Physical Exam Vital Signs: Vital Signs: Last Vital Signs Temp 96.9 F 02/27/23 07:34 Pulse 88 02/27/23 07:34 Resp 18 02/27/23 07:34 BP 128/60 02/27/23 07:34 Pulse Ox 98 02/27/23 07:34 O2 Del Method Room Air 02/27/23 07:34 BMI result Body Mass Index 28.4 Neuro: Other: She is alert and awake with decreased facial expression and flat affect. There was no obvious tremor. She was walking and then slow cautious small stab gait with walker. Deep tendon reflexes were absent. Objective Data Active Medications Acetaminophen (Acetaminophen 325 Mg Tablet) 650 mg PO Q6H PRN PRN Reason: Pain, Mild (Pain Scale 1-3) Last Admin: 02/27/23 04:56 Dose: 650 mg Documented By: LORELEI Bumetanide (Bumetanide 1 Mg Tablet) 0.5 mg PO DAILY [facility]; Protocol Last Admin: 02/23/23 10:09 Dose: 0.5 mg Documented By: ABEBE Carbidopa/Levodopa (Carbidopa/Levodopa 25/100 Tablet) 1 tab PO TID [facility] Last Admin: 02/27/23 08:00 Dose: 1 tab Documented By: EARNEST Dextrose (Dextrose 50 % 25 Gm/50 Ml Syringe) 25 gm IVPUSH Q15M PRN; Protocol PRN Reason: per Hypoglycemia Standing Ord. Glucose (Glucose Gel 15 Gm Gel..Gram.) 15 gm PO Q15M PRN; Protocol PRN Reason: per Hypoglycemia Standing Ord. Insulin Human Lispro (Insulin Lispro 100 Unit/Ml 3 Ml Vial) 0 unit SUBCUT QIDACHS [facility]; Protocol Last Admin: 02/27/23 08:25 Dose: Not Given Documented By: EARNEST Non-Admin Reason: No Insulin Coverage Lactulose (Lactulose 20 Gm/30 Ml Solution) 20 gm PO DAILY [facility] Last Admin: 02/27/23 08:00 Dose: 20 gm Documented By: EARNEST Levothyroxine Sodium (Levothyroxine Sodium 75 Mcg Tablet) 75 mcg PO DAILY@0600 [facility] Last Admin: 02/27/23 04:56 Dose: 75 mcg Documented By: LORELEI Melatonin (Melatonin 3 Mg Tablet) 6 mg PO BEDTIME PRN PRN Reason: Insomnia Last Admin: 02/26/23 00:28 Dose: 6 mg Documented By: LORELEI Montelukast Sodium (Montelukast Sodium 10 Mg Tablet) 10 mg PO BEDTIME [facility] Last Admin: 02/26/23 21:24 Dose: 10 mg Documented By: LORELEI Omeprazole (Omeprazole 20 Mg Capsule.Dr) 20 mg PO DAILY@0630 [facility] Last Admin: 02/27/23 04:56 Dose: 20 mg Documented By: LORELEI Ondansetron HCl (Ondansetron Hcl 4 Mg/2 Ml Vial) 4 mg IVPUSH Q8H PRN PRN Reason: Nausea and Vomiting Last Admin: 02/24/23 09:10 Dose: 4 mg Documented By: EARNEST Pharmacy Consult (Consult Rx Perform Med Rec) 1 each MISCELLANE ONCE PRN PRN Reason: Consult order Sodium Chloride (0.9 % Sodium Chloride Flush 3 Ml Syringe) 3 ml IVFLUSH QSHIFT [facility] Last Admin: 02/27/23 08:00 Dose: Not Given Documented By: EARNEST Non-Admin Reason: IV Running Spironolactone (Spironolactone 25 Mg Tablet) 25 mg PO BID [facility]; Protocol Last Admin: 02/23/23 22:07 Dose: 25 mg Documented By: KATI Labs 02/27/23 05:20 02/27/23 05:20 Labs: Laboratory Results - last 24 hr 02/26/23 02/26/23 02/26/23 11:22 16:05 20:40 MCV MCH MCHC RDW Plt Count MPV Absolute Nucleated RBC Nucleated RBC % (auto) Anion Gap Estim Creat Clear Calc Estimated GFR POC Glucose 138 H 162 H 123 H Fasting Glucose Calcium 02/27/23 02/27/23 02/27/23 05:20 05:20 07:33 MCV 100.6 H MCH 34.2 H MCHC 34.0 RDW 14.9 Plt Count 55 L MPV 10.7 Absolute Nucleated RBC 0.000 Nucleated RBC % (auto) 0.0 Anion Gap 14 Estim Creat Clear Calc 77.4 Estimated GFR > 60 POC Glucose 144 H Fasting Glucose 157 H Calcium 8.2 L Assessment and Plan (1) Falls frequently: Status: Acute Plan 68F PMH HCV cirrhosis, parkinsons disease, hypothyroid, hld, DM, history of morbid obesity (now with 15kg weight loss since 10/2022), presented with falls falls due to multifactorial frailty, parkinsons, cirrhosis PT eval appreciated - plan for rehab TARUN holding diuretics ivf fluids, monitor - improved acute on chronic lactic acidosis due to liver disease, metformin not sepsis, lactic acid back to baseline DM insulin hold orals hcv cirrhosis with pancytopenia, history of hepatic encephalopathy bumex, aldactone, on hold continue lactulose history of morbid obesity now with significant weight loss, likely due to progression of above monitor parkinsons neuro appreciated - diagnosis not definitive sinemet, outpatient follow up hypothryoid synthroid dvt prophylaxis - mechanical due to significant thrombocytopenia in liver cirrhosis full code reason for continued hospitalization:frequent falls, safe dispo, ivf for tarun Time Spent With Patient Time: Total time managing care of this patient today ____ minutes. Quality Stroke Does the patient have a stroke diagnosis?: No VTE Prior VTE?: No VTE Risk Level:: Medical - moderate - high VTE Device Contraindication: N/A - Device Ordered VTE Drug Contraindication: Treatment Not Indicated
[2023-02-27 12:02] LABS: Glucose, Whole Blood 280 mg/dL (60-115)
--- NOTE | 2023-02-27 12:21 | MHC.CM.PN ---
pt leaving at 130 to [facility] visitng notified of dc via histotechnologist
[2023-02-27] MEDS: Insulin Lispro 100 UNIT/ML 3 ML VIAL SUBCUT (12:23)
== END 2023-02-27 13:51 | disposition skilled nursing facility (03) | DRG 683 ==
LOC: HO.ED 23:53 → HO.EDOVER 23:59 → HO.S3 02-23 11:10
PROVIDERS: Physician Assistant; Admitting Provider Student in an Organized Health Care Education/Training Program; Emergency Provider Internal Medicine; PCP Internal Medicine; Visit Provider Internal Medicine
DX: N17.9 Acute kidney failure, unspecified (principal); D61.818 Other pancytopenia; E87.21 Acute metabolic acidosis; E87.22 Chronic metabolic acidosis; K74.69 Other cirrhosis of liver; K76.82 Hepatic encephalopathy; E11.9 Type 2 diabetes mellitus without complications; E78.2 Mixed hyperlipidemia; E03.9 Hypothyroidism, unspecified; G20 Parkinson's disease; Z86.19 Personal history of other infectious and parasitic diseases; Z79.890 Hormone replacement therapy; Z79.899 Other long term (current) drug therapy
CPT/HCPCS: 36415; 70450; 70486; 71045; 72100; 72125; 73502; 74174; 80048; 80053; 80076; 81001; 82010; 82140; 82550; 82607; 82803; 82947; 83605; 83690; 83735; 84145; 84443; 85025; 85027; 85610; 85730; 87040; 87086; 93005; 97162; 97166; 99221; 99285; J2405; J3475; Q9967

== ENCOUNTER → 2023-02-22 16:54 | Outpatient (BNV) | payer MEDICARE, MEDICAID, SELFPAY | PROVIDERS: Admitting Provider Student in an Organized Health Care Education/Training Program; Emergency Provider Internal Medicine; PCP Internal Medicine; Visit Provider Internal Medicine | DX: R00.0 Tachycardia, unspecified (principal); R94.31 Abnormal electrocardiogram [ECG] [EKG] | CPT/HCPCS: 93010 ==

== ENCOUNTER → 2023-02-22 23:53 | Outpatient (BNV) | payer MEDICARE, MEDICAID, SELFPAY | PROVIDERS: Admitting Provider Student in an Organized Health Care Education/Training Program; Emergency Provider Internal Medicine; PCP Internal Medicine; Visit Provider Student in an Organized Health Care Education/Training Program | DX: R29.6 Repeated falls (principal) | CPT/HCPCS: 99222; 99231; 99232; 99233; 99239 ==

== ENCOUNTER 2023-03-17 08:11 | Outpatient (AMB) | payer MEDICARE, MEDICAID, SELFPAY ==
--- NOTE | 2023-03-17 08:14 | A.OFFVIS_ITS ---
Intake Vital Signs 03/17/23 08:26 Height 4 ft 10 in Weight 168 lb BMI 35.1 BP 110/55 L Blood Pressure Location Lt brachial Position Sitting Pulse 84 Intake Visit Reasons: 3 Month F/U - Cirrhosis Intake Note: Patient follow up for Cirrhosis. Patient denies any GI issues. Hand Zipper Trimmer Required: No Accompanied by: Family/Other Allergies aspirin [ASPIRIN] Allergy (Intermediate, Verified 03/17/23 08:17) HIVES Penicillins [PCN] Allergy (Intermediate, Verified 03/17/23 08:17) HIVES Medication List - Last Reconciled 03/17/23 by Sourav Braun MD acarbose 50 mg PO TID acetaminophen ER 650 mg PO Q8H PRN atorvastatin 20 mg PO BEDTIME bisacodyl (Dulcolax (bisacodyl)) 10 mg (2 x 5 mg) PO ONCE 1 day bumetanide 0.5 mg PO DAILY 30 days calcium carbonate-vitamin D3 500 mg-10 mcg (400 unit) (Oyster Shell Calcium- Vitamin D3) 1 tab PO QAM carbidopa-levodopa 25-100 mg 1 tab PO TID lactulose 30 mL PO DAILY levothyroxine 75 mcg PO DAILY linagliptin-metformin 2.5-1,000 mg (Jentadueto) 1 tab PO BIDWM melatonin 5 mg PO BEDTIME montelukast 10 mg PO BEDTIME omeprazole 20 mg PO DAILY polyethylene glycol 3350 (Miralax) 238 grams PO ONCE 1 day spironolactone (Aldactone) 25 mg PO BID 30 days HPI 3 Month F/U - Cirrhosis HPI Details GI clinic appointment for this 68 year old Portuguese-speaking female for follow-up of cirrhosis with elevated LFTs and positive Hep C - repeat ab was negative. ? Home . CHRONIC ILLNESSES:?HTN, DM, HYPOTHYROIDISM, ASTHMA, PARKINSON'S DISEASE. ?LABS IN [facility]: 11/05/19 normal CBC with platelet count of 108, INR 1.2, haptoglobin- low at 32 (normal 43 to 212), AST 61, ALT 49, alkaline phosphatase 124, albumin 3, liver fibrosis score 0.80, liver fibrosis stage F4, necroinflammatory score 0.41, hepatitis C antibody positive with viral load < 15 IU/ml, hepatitis-B surface antigen and antibody were negative. Hepatitis A antibody showed immunity to hepatitis A. ? Iron studies were not suggestive of hemochromatosis, ferritin 236 ? AFP 4.7 ? 09/18/19 REVIEWED - PLT 135, CREATININE 0.8O ELEVATED LFTS WITH THE A TOTAL BILIRUBIN OF 1.7, AST 59, ALT 40, ALKALINE PHOSPHATASE 92, ALBUMIN 3 ? HIV ANTIGEN ANTIBODY NONREACTIVE ? IMAGING STUDIES: 01/15/20 abdominal US showed: ? 1. Coarse hepatic echogenicity with lobular contour, consistent with ? cirrhosis. No hepatic parenchymal lesion or biliary ductal dilatation. ? 2. Right-sided hydronephrosis versus multiple parapelvic cysts. IMAGING STUDIES:? 02/22/[address] SCAN SHOWED: 1.? No evidence of significant mesenteric stenoses 2.? No evidence of bowel edema to suggest ischemia. 3.? Nodular cirrhotic-appearing liver with associated splenomegaly. 4.? Other incidental findings as described above. 12/2021 ABD MRI SHOWED: VASCULAR: There are paraesophageal and gastric varices. The hepatic veins and portal veins are patent. OSSEOUS STRUCTURES: Marrow signal normal. ? Cirrhotic-appearing liver. No liver lesion seen. Varices. Small right renal cyst.? ENDOSCOPIC STUDIES:?04/2020 EGD AND COLONOSCOPY SHOWED: Endoscopy Findings: ESOPHAGUS:? small hiatal hernia and no esophageal varices noted. STOMACH:? moderate non-erosive hypertensive portal gastropathy. Colonoscopy Findings: ?5 polyps were removed -? 3 polyps were larger than 10 mm. Moderate diverticulosis seen in the? sigmoid colon Moderate hemorrhoids on retroflexed exam. Plan: Await pathology results Hold NSAIDs or aspirin for 7 days. Patient to schedule a FU appointment in the GI Clinic with Sourav Braun M.D. Repeat EGD (screen for varices) and Colonoscopy in 2 years if polyps are adenomatous. Above findings were reviewed with the patient and handout on? colon polyps and diverticulosis was provided BIOPSIES SHOWED: A.? Colon, ascending, polypectomy:? Colonic mucosa with prominent lymphoid aggregate; no dysplasia seen. B.? Colon, transverse, polypectomies:? Hyperplastic mucosal polyps. C.? Colon, sigmoid, polypectomies: - Fragments of tubular adenoma(s); no high grade dysplasia or carcinoma seen. - Hyperplastic mucosal polyp(s). ?TODAY'S VISIT Patient is accompanied by her son-in-law who interpreted for the patient Pt was hospitalized at [facility] [place] [place] 02/22 to 02/27/23 after she had a fall Elevated ammonia to 77 and pt noted to be confused (did'nt recognize her children) x 3 days after the fall which has resolved. Has lost 10 lbs since last visit - while she was in the hospital and in Rehab and food was different. Denies abdominal pain, diarrhea, constipation or rectal bleeding. Appetite is so so. Taking Lactulose once daily and has 1-2 BMs a day. PAST VISITS: Still has ankle edema. Abd US and? CT results reviewed. Noted lower extremity edema for the past 2 months. Has not been taking the lactulose since she ran out in Jul, 2022. CC: She states that she is here for results to her Ct. She cannot sleep well. She takes the melatonin but it does not help her. In [place] they gave her trazodone to help her sleep. Pt complains of diarrhea 3-4 times a day with lactulose two times a day - advised to decrease to once a day Pt is interested in pursuing liver transplant if needed. CC: PT states that she has diarrhea - she takes a syrup and she goes to the bathroom a lot. PT states that her stool is very soft. Has soft stools twice daily after she takes the lactulose and advised to increase to twice a day Denies any acid reflux since she moved to [place] from [place]. Notes lower extremity edema. ?Lab and US results were reviewed with the patient at a p- informed her she had Hepatitis C which does not need any treatment. ? Has some issues with stomach buildup of acid resolved with medications. ? Denies past history of hepatitis or liver disease. ? Denies major cardiac or pulmonary problems or past problems with anesthesia. ? Admits to having blood transfusions in 1971 and 1979. ? She reports being tested a 3 yrs ago in [place] and was told she was negative. ? Past Surgeries: GB,?BTL PFSH Medical History Anemia Cirrhosis Cirrhosis Diabetes Hx of hepatitis C Hypertension Hyperthyroidism Parkinson disease Severe sepsis Thrombocytopenia Surgical History H/O colonoscopy History of cholecystectomy History of cystoscopy History of esophagogastroduodenoscopy (EGD) History of tonsillectomy History of tubal ligation Hx of lithotripsy Family History Daughter Diabetes Daughter Diabetes Brother HTN (hypertension) Social History Household Members: Family Household Members Other:: 6 Housing: House Are you a primary clinical care leader to a significant other at home: No Do you presently have visiting nurse or other home services: Yes Unable to assess alcohol history related to: Unknown Alcohol intake: never Patient Tobacco Use Status: Never used Tobacco Second Hand Smoke Exposure: No Advance Directives Date on File: 04/25/20 service: No Current occupational status: disabled Review of Systems Const All systems reviewed & are unremarkable except as noted in HPI and below Physical Exam Vital Signs: Last Vital Signs Pulse 84 03/17/23 08:26 BP 110/55 L 03/17/23 08:26 BMI result Body Mass Index 35.1 Const General: no acute distress Nutritional Appearance: obese Orientation/consciousness: patient oriented x3 Limitations: language barrier and ambulation with walker HEENT Head: Yes normal to inspection Ears: hearing grossly normal bilaterally Eyes Sclerae: sclerae normal Pupils: Equal, round and reactive pupils present Neck Neck: Yes normal visual inspection Chest Chest palpation & inspection: normal inspection of the chest Resp Effort & Inspection: normal respiratory effort Auscultation: clear to auscultation bilaterally Cardio Palpation: normal PMI Rate: regular rate Rhythm: regular rhythm Heart sounds: S1 normal heart sound present, S2 normal heart sound present and no murmurs GI Palpation (GI): Soft to palpation, nontender and No hepatosplenomegaly present Auscultation: normal bowel sounds Rectal Exam - Female: deferred Skin General skin exam: no rashes or lesions noted Neuro General: patient oriented x3, gait normal and moves all extremities Cranial nerves: Yes Equal, round and reactive pupils present Extrem General: Yes pedal edema (1+ pitting edema) Psych Appearance: grossly normal Mental Status: mental status grossly normal Assessment & Plan Assessment & Plan (1) Hepatic encephalopathy: Code(s): K76.82 - Hepatic encephalopathy (2) Alcoholic cirrhosis of liver without ascites: Comment: Cirrhosis is likely due to past hepatitis C and Espinoza related to obesity. Lab evaluation showed hepatitis C viral load of less than 15 indicating spontaneous clearance of hepatitis C. Code(s): K70.30 - Alcoholic cirrhosis of liver without ascites (3) Hepatitis C test positive: Code(s): B19.20 - Unspecified viral hepatitis C without hepatic coma (4) Colon cancer screening: Code(s): Z12.11 - Encounter for screening for malignant neoplasm of colon (5) Abnormal MRI, liver: Code(s): R93.2 - Abnormal findings on diagnostic imaging of liver and biliary tract Plan GI Clinic visit for this 68 year old Portuguese-speaking female with HTN, DM, HYPOTHYROIDISM, ASTHMA, PARKINSON'S DISEASE for FU of cirrhosis. Review of her labs showed elevated LFTs, low albumin and thrombocytopenia concerning for liver cirrhosis. Cirrhosis is likely due to past hepatitis C and Espinoza related to obesity. Lab evaluation showed hepatitis C viral load of less than 15 indicating spontaneous clearance of hepatitis C. Hepatitis-B serologies showed lack of immunity. Patient admits to having blood transfusions and the 70s and 80s which is likely source of infection. Hepatitis C is complicated by cirrhosis. Iron studies are not suggestive of hemochromatosis. MELD score is 16. Pt is not interested in pursuing a liver transplant 04/2020 EGD showed small hiatal hernia and no esophageal varices, moderate non- erosive hypertensive portal gastropathy. One medium sized adenomatous polyp was removed during same day Colonoscopy repeat colonoscopy is advised in 3 yrs (due 04/2023) Pt will be scheduled for an [facility] US for HCC surveillance She was referred to dietitian and weight management to discuss dietary management for weight loss for morbid obesity 11/15/22 Pt started on Furosemide 40 mg and spironolactone 50 mg daily for lower extremity edema. 12/16/22 Dose of diuretics was increased to Furosemide 40 mg twice daily and Spironolactone 50 mg twice daily Patient's daughter advised to have labs (electrolytes and renal function) checked in 2-3 weeks 03/16/23 ? - pt is scheduled for repeat EGD (surveillance of esophageal varices) and colonoscopy (surveillance for colon polyps) on 06/03/23 Repeat labs in 1-2 weeks FU in 4 months Orders: Orders Comprehensive Met. Panel Today K70.30 - Alcoholic cirrhosis of liver without ascites Complete Blood Count no Diff Today K70.30 - Alcoholic cirrhosis of liver without ascites Ammonia Today K70.30 - Alcoholic cirrhosis of liver without ascites Prothrombin Time INR Today K70.30 - Alcoholic cirrhosis of liver without ascites Medications: Discontinued lactulose 15 mL PO BID 30 days 900 mL 4RF furosemide 40 mg (2 x 20 mg) PO BID 30 days 120 tabs 3RF R60.0 - Localized edema Coding Level of Care Code Est Pt Level 4 (27265) Diagnoses Hepatic encephalopathy K76.82 Alcoholic cirrhosis of liver without ascites K70.30 Hepatitis C test positive B19.20 Colon cancer screening Z12.11 Abnormal MRI, liver R93.2 Time Spent (min) 25
[2023-03-17 08:26] VITALS: BP 110/55; PULSE 84; BMI 35.1
== END 2023-03-17 08:48 | disposition home or self-care (01) ==
PROVIDERS: PCP Internal Medicine; Visit Provider Internal Medicine Gastroenterology
DX: K76.82 Hepatic encephalopathy (principal); K70.30 Alcoholic cirrhosis of liver without ascites; B19.20 Unspecified viral hepatitis C without hepatic coma; Z12.11 Encounter for screening for malignant neoplasm of colon; R93.2 Abnormal findings on diagnostic imaging of liver and biliary tract
CPT/HCPCS: 99214

== ENCOUNTER → 2023-03-17 08:11 | Outpatient (BNVA) | payer MEDICARE, MEDICAID, SELFPAY | PROVIDERS: PCP Internal Medicine; Visit Provider Internal Medicine Gastroenterology | DX: Z12.11 Encounter for screening for malignant neoplasm of colon (principal); K76.82 Hepatic encephalopathy; K70.30 Alcoholic cirrhosis of liver without ascites; B19.20 Unspecified viral hepatitis C without hepatic coma; R93.2 Abnormal findings on diagnostic imaging of liver and biliary tract | CPT/HCPCS: 99212 ==

== ENCOUNTER 2023-03-18 10:23 | Outpatient (AMB) | payer MEDICARE, MEDICAID, SELFPAY ==
--- NOTE | 2023-03-18 10:27 | A.OFFVIS_ITS ---
Intake Intake Visit Reasons: follow up/Renal scan/Labs(set) Intake Note: Patient is present for follow up visit hydronephrosis/renal scan (imaging 02/17/23) Urology Medications: none Blood Thinner: none PVR: 11mls [employer] Required: Yes Accompanied by: Son Allergies aspirin [ASPIRIN] Allergy (Intermediate, Verified 03/19/23 13:26) HIVES Penicillins [PCN] Allergy (Intermediate, Verified 03/19/23 13:26) HIVES Medication List - Last Reconciled 03/19/23 by WADE Hull- acarbose 50 mg PO TID acetaminophen ER 650 mg PO Q8H PRN atorvastatin 20 mg PO BEDTIME bisacodyl (Dulcolax (bisacodyl)) 10 mg (2 x 5 mg) PO ONCE 1 day bumetanide 0.5 mg PO DAILY 30 days calcium carbonate-vitamin D3 500 mg-10 mcg (400 unit) (Oyster Shell Calcium- Vitamin D3) 1 tab PO QAM carbidopa-levodopa 25-100 mg 1 tab PO TID lactulose 30 mL PO DAILY levothyroxine 75 mcg PO DAILY linagliptin-metformin 2.5-1,000 mg (Jentadueto) 1 tab PO BIDWM melatonin 5 mg PO BEDTIME montelukast 10 mg PO BEDTIME omeprazole 20 mg PO DAILY polyethylene glycol 3350 (Miralax) 238 grams PO ONCE 1 day spironolactone (Aldactone) 25 mg PO BID 30 days HPI HPI Comments History of Present Illness Details Meena is a very pleasant Wolof-speaking 67-year-old female patient of Dr. Daniel Ng who was accompanied by her son and daughter in law at today's visit. She has a past medical history of lower extremity edema, obesity, nephrolithiasis, alcoholic cirrhosis of liver without ascites, leukopenia, pancytopenia, and hep C test positive. She presents to the office today for follow-up of her hydronephrosis. Of note, patient was seen approximately 2 months ago for her longstanding history of nephrolithiasis and hydronephrosis at which time a renal nuclear scan was ordered for further assessment evaluation. These results were reviewed withthe the patient and her family today the left kidney is mildly impaired perfusion and function compared to the right. No hydronephrosis or outlet obstruction. Right kidney with normal perfusion and function. Mild hydronephrosis is probably present in low-grade partial outflow obstruction may also be present. BUN 03/16--range between 18-11. Creatinine 03/16--range between 0.68-1.25. In review of patient's chart it does appear January of this year patient noted with elevated BUN and creatinine as high as creatinine of 5.85 and a BUN of 52. When discussing these results with the patient and her family today they report patient was hospitalized due to frequent falls with generalized weakness. No clear etiology. Lactic acidosis no sepsis noted likely due to metformin use and liver disease. Discussed further workup of hydronephrosis with cystoscopy bilateral retrogrades. Discussed surveillance monitoring. Nuclear renal scan results reviewed with Dr. Parkinson as well. At this time given BUN and creatinine are within normal limits patient and family will continue with surveillance monitoring. When asked patient does report urinary incontinence however does not find this bothersome and relates it to her decrease in mobility. She reports to be wearing adult diapers and does not wish to trial pelvic floor therapy and or medications for this issue. She otherwise denies hematuria, dysuria, foul smelling urine, changes to urinary stream, flank pain, fever, and or chills. She is happy with her current voiding parameters. In office urinalysis results reviewed with the patient and her family today. PVR 19 mL. Patient and family otherwise offers no other issues or concerns at this time. [facility] Medical History Anemia Cirrhosis Cirrhosis Diabetes Hx of hepatitis C Hypertension Hyperthyroidism Parkinson disease Severe sepsis Thrombocytopenia Surgical History H/O colonoscopy History of cholecystectomy History of cystoscopy History of esophagogastroduodenoscopy (EGD) History of tonsillectomy History of tubal ligation Hx of lithotripsy Family History Daughter Diabetes Daughter Diabetes Brother HTN (hypertension) Social History Household Members: Family Household Members Other:: 6 Housing: House Are you a primary long term care social worker to a significant other at home: No Do you presently have visiting nurse or other home services: Yes Unable to assess alcohol history related to: Unknown Alcohol intake: never Patient Tobacco Use Status: Never used Tobacco Second Hand Smoke Exposure: No Advance Directives Date on File: 04/25/20 service: No Current occupational status: disabled Review of Systems Const Reports as per HPI Eyes Reports no additional complaints ENT Reports no additional complaints Card Reports no additional complaints Resp Reports no additional complaints GI Reports as per HPI Reports as per HPI Musc Reports no additional complaints Neuro Reports no additional complaints Psych Reports no additional complaints Endo Reports no additional complaints Physical Exam Const General: cooperative, comfortable, no acute distress, well developed, alert and awake Orientation/consciousness: patient oriented x3 Limitations: ambulation with cane HEENT Head: Yes normal to inspection, Yes normocephalic and Yes atraumatic Ears: hearing grossly normal bilaterally Eyes General: appearance normal, both eyes and all related structures Neck Neck: Yes normal visual inspection and Yes trachea midline Chest Chest palpation & inspection: normal inspection of the chest Resp Effort & Inspection: normal respiratory effort and able to speak in complete sentences Cardio Rate: regular rate GI Inspection: Yes normal to inspection General: Yes no CVA tenderness Back/Spine/Pelvis Back: no CVA tenderness Skin General skin exam: no rashes or lesions noted Neuro General: patient oriented x3 Extrem General: Yes normal to inspection Psych Appearance: grossly normal and well kempt Mental Status: mental status grossly normal Speech and movement: Normal speech and movement present and Clear speech present Affect: normal affect Attitude: cooperative Thought process: Normal thought process present Thought content: Normal thought content present Insight: Fair insight present (Psych) Judgement: Fair judgement present (Psych) Results AMB Urinalysis, Automated UA Leukoctes 15 Fer/uL Last Edit by [employer] on 03/18/23 10:50 UA Nitrite Negative Last Edit by [employer] on 03/18/23 10:50 UA Urobilinogen 1 mg/dL Last Edit by [employer] on 03/18/23 10:50 UA Protein 30 mg/dL Last Edit by [employer] on 03/18/23 10:50 UA pH 7.0 Last Edit by [employer] on 03/18/23 10:50 UA Blood 0 Cesar/uL Last Edit by [employer] on 03/18/23 10:50 UA Specific Tama 1.015 Last Edit by [employer] on 03/18/23 10:50 UA Ketone Negative Last Edit by Troy Forrester on 03/18/23 10:50 UA Bilirubin 0 mg/dL Last Edit by Troy Forrester on 03/18/23 10:50 UA Glucose 0 mg/dL Last Edit by Troy Forrester on 03/18/23 10:50 Results Reviewed Results Reviewed: Laboratory Last Values Urine pH (Auto) 7.0 03/18/23 10:31 Specific Tama (Auto) 1.015 03/18/23 10:31 Urine Protein (Auto) 30 mg/dL 03/18/23 10:31 Glucose (UA)(Auto) 0 mg/dL 03/18/23 10:31 Urine Ketones (Auto) Negative 03/18/23 10:31 Urine Blood (Auto) 0 Cesar/uL 03/18/23 10:31 Urine Nitrite (Auto) Negative 03/18/23 10:31 Urine Bilirubin (Auto) 0 mg/dL 03/18/23 10:31 Urine Urobilinogen (Auto) 1 mg/dL 03/18/23 10:31 Leukocyte Esterase (Auto) 15 Fer/uL 03/18/23 10:31 Date of Service: 02/17/23 EXAMINATION: RENAL DYNAMIC IMAGING STUDY WITH LASIX CLINICAL INFORMATION: Right-sided hydronephrosis. Acute renal failure. COMPARISON: No previous radionuclide renal scan is available for comparison. The diagnostic CT scan of the abdomen and pelvis, dated 01/24/2023, is available for comparison. TECHNIQUE: Serial gamma scintillation camera images were obtained over the posterior trunk during the initial transit and subsequent distribution of a bolus intravenous injection of? 10 mCi of Tc-99m DTPA.? At 30 minutes later, 38 mg of Lasix was administered intravenously and an additional 15 minutes of images obtained. FINDINGS: Initial rapid sequence images show prompt and normal-appearing flow to the left kidney but moderately diminished flow to the right kidney. Subsequent sequential static images obtained up to 30 minutes show fair to good concentration bilaterally, but the intensity of activity on the initial images in the left kidney is diminished compared to the right. Excretory activity is visualized bilaterally by 4 to 5 minutes post injection, but this is more intense on the right. The collecting system activity pattern suggest a duplicated system on the right, and possibly also on the left, but upper pole moiety ureters are not well delineated on either side. Urinary bladder activity is well visualized by 6 to 7 minutes post injection. At 30 minutes postinjection there is good visualization of activity in the urinary bladder and moderate retention with mild caliectasis is present on the right but no abnormal retention or dilatation on the left. Following Lasix administration, there is almost complete washout of the small amount of retained activity present in the left renal collecting system at the time of Lasix administration. Washout on the right is present, but is slower than on the left. At the end of the study, terminated earlier than the usual 30 minutes post Lasix administration most of the excretory activity is in the urinary bladder and there is no significant retention in the left renal collecting system but there is mild retention on the right. 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 Meaningful T-1/2 washout times following Lasix administration cannot be calculated on either side. On the left there was only minimal retention at the time of Lasix administration, and on the right the activity did not reach one half the intensity at the time of Lasix administration. The relative function of the two kidneys based on the 2-3 minute images are: Left 30% and right 70%. IMPRESSION: LEFT KIDNEY: Mildly impaired perfusion and function compared to the right. No hydronephrosis or outflow obstruction. ? RIGHT KIDNEY: Normal perfusion and function. Mild hydronephrosis is probably present and low-grade partial outflow obstruction may also be present. The study was terminated earlier than the usual 30 minutes post Lasix administration, and while significant washout on the right is present, a T-1/2 washout time could not be calculated. Assessment & Plan Assessment & Plan (1) Nephrolithiasis: Code(s): N20.0 - Calculus of kidney (2) Hydronephrosis: Code(s): N13.30 - Unspecified hydronephrosis (3) Urinary incontinence: Code(s): R32 - Unspecified urinary incontinence Plan In office urinalysis results reviewed with the patient and her family today; as noted above. PVR 19 mL. Recent nuclear renal scan results reviewed with the patient her family today; as noted above. Reviewed BUN and creatinine with patient and family as noted above Nuclear renal scan results reviewed with Dr. Parkinson as well. Will continue with surveillance monitoring. Will obtain nuclear renal scan in 6 months as well as BUN and creatinine for further assessment evaluation. Patient denies any bothersome urinary issues or concerns at this time. Discussed, educated, instructed on the importance of drinking plenty of water daily. Follow-up in 6 months with imaging and labs to be completed prior; or sooner with any issues, concerns, and or questions. Orders: Orders Blood Urea Nitrogen 03/18/23 R39.15 - Urgency of urination Creatinine 03/18/23 R39.15 - Urgency of urination NM renal flow w pharm int 6 Months N13.30 - Unspecified hydronephrosis AMB Urinalysis Automated 03/18/23 Z13.9 - Encounter for screening, unspecified Medications: Discontinued lactulose 15 mL PO BID 30 days 900 mL 4RF furosemide 40 mg (2 x 20 mg) PO BID 30 days 120 tabs 3RF R60.0 - Localized edema Patient Instructions: The patient had an opportunity to ask questions regarding the treatment plan. All questions were answered. Physical exam, labs, and imaging were discussed and reviewed in detail. As well as risks, benefits, and discussion of treatment choices. No major barriers to understanding were identified. The patient expressed understanding and agreement with the above treatment plan. The patient was made aware they should contact our office by phone for worsening of their current condition, the appearance of new symptoms, or with any questions or concerns. Compliance is encouraged with any medications and follow up testing that is ordered. It is a privilege to be allowed the opportunity to participate in? your urological care.? Again, if you have any questions or concerns If you have any questions or concerns please do not hesitate to contact me. The office is [phone]. This note is constructed using voice recognition software. While every effort has been made to ensure accuracy earthmoving plant operator errors may have been included. Yours sincerely, CRAIG Hull Coding Level of Care Code Est Pt Level 3 (48623) Diagnoses Nephrolithiasis N20.0 Hydronephrosis N13.30 Urinary incontinence R32
== END 2023-03-18 11:29 | disposition home or self-care (01) ==
PROVIDERS: PCP Internal Medicine; Visit Provider Nurse Practitioner Family
DX: Z13.9 Encounter for screening, unspecified (principal)
CPT/HCPCS: 99213

== ENCOUNTER → 2023-03-18 10:23 | Outpatient (BNVA) | payer MEDICARE, MEDICAID, SELFPAY | PROVIDERS: PCP Internal Medicine; Visit Provider Nurse Practitioner Family | DX: N13.2 Hydronephrosis with renal and ureteral calculous obstruction (principal); R32 Unspecified urinary incontinence | CPT/HCPCS: 81003; 99212 ==

== ENCOUNTER 2023-03-23 12:14 | Outpatient (REF) | payer MEDICARE, MEDICAID, SELFPAY ==
[2023-03-23 15:58] LABS: Anion Gap 10 (12-20); Blood Urea Nitrogen 10 mg/dL (9-16); Carbon Dioxide 27 mmol/L (22-29); Chloride 105 mmol/L (96-108); Estimated Glomerular Filt Rate > 60; Glucose Random 118 mg/dL (60-115); Potassium 3.5 mmol/L (3.3-5.1); Sodium 138 mmol/L (135-145)
== END 2023-03-23 12:15 | disposition home or self-care (01) ==
LOC: HO.CHCLDS 12:14
PROVIDERS: Visit Provider Internal Medicine
DX: N17.9 Acute kidney failure, unspecified (principal)
CPT/HCPCS: 36415; 80048

== ENCOUNTER 2023-04-14 17:25 | Inpatient (IN) | payer MEDICARE, MEDICAID, SELFPAY ==
--- NOTE | ~2023-04-14 | CT_ITS ---
EXAMINATION: CT ABDOMEN AND PELVIS WITH CONTRAST CLINICAL INFORMATION: Abdominal pain. COMPARISON: None available. TECHNIQUE: Multidetector volumetric images were obtained from the superior aspect of the liver through the pubic symphysis following administration 85 mL of Omnipaque 350 intravenous contrast. Sagittal and coronal reformatted images were obtained on the technologist's workstation. Oral contrast: No This CT examination was performed using dose optimization techniques as appropriate, variously including the following: *Automated exposure control *Adjustment of mA and/or kV according to patient size (this includes techniques or standardized protocols for targeted exams where dose is matched to indication/reason for exam; i.e. extremities or head) *Use of iterative reconstruction technique DLP: 658 mGy-cm FINDINGS: LUNG BASES: The visualized lung bases are unremarkable. LIVER, GALLBLADDER, AND BILIARY TREE: The liver is small and irregular in contour. No focal liver lesions are seen. There is no intrahepatic biliary duct dilatation. The gallbladder is not seen. PANCREAS: Unremarkable. SPLEEN: The uterus is enlarged measuring up to 15 cm. ADRENAL GLANDS: Unremarkable. KIDNEYS AND URETERS: The kidneys are normal in size, shape, and attenuation. No hydronephrosis, hydroureter, or calculi seen. No perinephric stranding. BLADDER: Unremarkable. GASTROINTESTINAL TRACT: There appear to be thickened gastric folds. The stomach is underdistended. There is also mild thickening of the ascending colon. Prominent mildly thickened small bowel loops are also noted. There is retained stool. The appendix is not seen. ABDOMINAL WALL: No significant hernia is appreciated. There is mild soft tissue anasarca. LYMPH NODES: Normal. VASCULAR: There is mild atherosclerotic plaque of the abdominal aorta. There is significant perigastric and paraesophageal varices. There are also retroperitoneal varices. PELVIC VISCERA: Unremarkable. OSSEOUS STRUCTURES: Unremarkable. CT/CT abdomen pelvis w IV con IMPRESSION: Cirrhotic liver with splenomegaly, varices and soft tissue anasarca.. Prominent thickened small bowel loops as well as apparent thickening of the ascending colon. Consider an enteritis or enterocolitis. Gastric fold thickening may be related to underdistention. Fleischner guidelines were followed.
[2023-04-14 17:32] VITALS: BP 152/72; PULSE 113; RESP 18; TEMP 36.6; O2SAT 99; BMI 31.2
[2023-04-14 17:48] VITALS: BP 134/59; PULSE 108; RESP 16; TEMP 36.5; O2SAT 100
--- NOTE | 2023-04-14 18:08 | ECG_ITS ---
Test Reason : N/V Blood Pressure : / mmHG Vent. Rate : 104 BPM Atrial Rate : 104 BPM P-R Int : 128 ms QRS Dur : 088 ms QT Int : 380 ms P-R-T Axes : 030 -03 166 degrees QTc Int : 499 ms Sinus tachycardia Nonspecific T wave abnormality Anterior infarct (cited on or before 22-FEB-2023) Abnormal ECG When compared with ECG of 22-FEB-2023 17:26, Questionable change in initial forces of Anterior leads Referred By: Shey Castro Electronically Signed By:JAVIER PARMAR
[2023-04-14 18:57] VITALS: BP 130/61; PULSE 103; RESP 16; O2SAT 98
--- NOTE | 2023-04-14 19:19 | ED.NAVMDI ---
HPI - Nausea/Vomiting/Diarrhea General Chief complaint: Nausea/Vomiting/Diarrhea Stated complaint: vomiting since 8am Time Seen by Provider: 04/14/23 18:05 Source: family Mode of arrival: EMS Limitations: language barrier (Patient primarily Chilean-speaking, medical coordinator pesticide use provided) History of Present Illness HPI Narrative: Patient is a 68-year-old female who was brought to the emergency department via EMS for evaluation of nausea vomiting and altered mental status. Her daughter is present at bedside who is her primary spanner operator. Reportedly at baseline patient is alert and oriented x3. She has not been communicative as of today however, she has had 3 episodes of vomiting and increased tremors from her baseline. Not tolerating oral intake. Reportedly this has occurred twice in the recent past both of which daughter states that she was found to have acute kidney injury at the time. Yesterday she was acting her normal self. Has not had any recent complaints of abdominal pain or nausea. Her appetite is generally poor at baseline though they have not noticed any change. Denies any known fever. She has diarrhea at baseline due to lactulose. Family denies any hematochezia or melena. Related Data Home Medications Medication Instructions Recorded Confirmed atorvastatin 20 mg tablet 20 mg PO BEDTIME 04/21/20 03/17/23 carbidopa 25 mg-levodopa 100 mg 1 tab PO TID 04/21/20 03/17/23 tablet levothyroxine 75 mcg tablet 75 mcg PO DAILY 04/21/20 03/17/23 linagliptin 2.5 mg-metformin 1,000 1 tab PO BIDWM 04/21/20 03/17/23 mg tablet (Jentadueto) omeprazole 20 mg capsule,delayed 20 mg PO DAILY 04/21/20 03/17/23 release calcium carbonate 500 mg-vitamin 1 tab PO QAM 11/09/21 03/17/23 D3 10 mcg (400 unit) tablet (Oyster Shell Calcium-Vitamin D3) acetaminophen 650 mg 650 mg PO Q8H PRN Pain 12/01/21 03/17/23 tablet,extended release melatonin 5 mg tablet 5 mg PO BEDTIME 12/01/21 03/17/23 acarbose 50 mg tablet 50 mg PO TID 09/16/22 03/17/23 montelukast 10 mg tablet 10 mg PO BEDTIME 09/16/22 03/17/23 lactulose 10 gram/15 mL oral 30 ml PO DAILY 02/22/23 03/17/23 solution Previous Rx's Medication Instructions Recorded bumetanide 0.5 mg tablet 0.5 mg PO DAILY 30 days #30 tabs 01/27/23 spironolactone 25 mg tablet 25 mg PO BID 30 days #60 tabs 01/27/23 (Aldactone) bisacodyl 5 mg tablet,delayed 10 mg (2 x 5 mg) PO ONCE 1 day #2 03/11/23 release (Dulcolax (bisacodyl)) tabs polyethylene glycol 3350 17 238 g PO ONCE 1 day #238 grams 03/11/23 gram/dose oral powder (Miralax) Allergies Allergy/AdvReac Type Severity Reaction Status Date / Time aspirin [ASPIRIN] Allergy Intermediate HIVES Verified 03/19/23 13:26 Penicillins [PCN] Allergy Intermediate HIVES Verified 03/19/23 13:26 Review of Systems Review of Systems: Yes Unobtainable due to mental status PMFSH Past Medical History Attestation statement: The following information was validated with the patient. Source: old records reviewed Medical History Cirrhosis Thrombocytopenia Cirrhosis Hx of hepatitis C Anemia Hyperthyroidism Hypertension Parkinson disease Diabetes Severe sepsis Surgical History History of tubal ligation History of tonsillectomy History of cholecystectomy History of esophagogastroduodenoscopy (EGD) H/O colonoscopy Hx of lithotripsy History of cystoscopy Family History Family History Daughter Diabetes Daughter Diabetes Brother HTN (hypertension) Social History Social History Household Members: Family Household Members Other:: 6 Housing: House Are you a primary long term care social worker to a significant other at home: No Do you presently have visiting nurse or other home services: Yes Unable to assess alcohol history related to: Unknown Alcohol intake: never Patient Tobacco Use Status: Never used Tobacco Smoked in Last 30 Days: No Second Hand Smoke Exposure: No Use of substances other than those prescribed or required for medical reasons: No Advance Directives: Yes Advance Directives on File: Yes Advance Directives Date on File: 04/25/20 service: No Current occupational status: disabled Physical Exam Vital Signs: Vital Signs: Last Vital Signs Temp 98.2 F 04/15/23 00:09 Pulse 92 04/15/23 00:09 Resp 16 04/15/23 00:09 BP 119/53 L 04/15/23 00:09 Pulse Ox 99 04/15/23 00:09 O2 Del Method Room Air 04/15/23 00:09 BMI result Body Mass Index 31.2 Appearance: Alert.? Disoriented, nonverbal. No acute distress.? Eyes: Pupils equal, round and reactive to light.? ENT: Pharynx normal.?? Neck: Normal inspection.? Neck supple.?? CVS: Heart sounds normal. Tachycardia.? Pulses normal.?? Respiratory: No respiratory distress.? Lung sounds clear to auscultation bilaterally?? Abdomen: Soft and non-tender. Normoactive bowel sounds. ? Skin: Skin warm and dry.? Normal skin color.? ? Extremities: No lower extremity edema.? Neuro: Moves all extremities spontaneously. Course Reevaluation(s) Reevaluation #1: CBC revealing pancytopenia consistent with baseline. Lactic acid is 6.1, upon review she has had previous lactic acidosis, most recently in February of 2023 thought to be acute on chronic due to liver disease/metformin as opposed to sepsis at that time. At this time suspect likely type B lactic acidosis, would defer antibiotics has currently pending CT of the abdomen and pelvis. Given nausea and vomiting cannot completely exclude infectious etiology at this time; viral gastroenteritis versus bacterial etiology. However she is afebrile and without hypoxia but she does have tachycardia. she has already received 1 L normal saline IV fluid, will order additional 1,250 mL fluid bolus to meet sepsis 30 mL per kg bolus. Time: 21:00 Reevaluation #2: Levaquin and Flagyl IV ordered, CT revealing enteritis/ enterocolitis, stool studies pending at this time. Discussed this case with hospitalist Dr. eBnson, who accepts patient for admission to medicine service Medications Administered Generic Name Dose Route Start Last Admin Trade Name Freq PRN Reason Stop Dose Admin Piperacillin Sod/Tazobactam 100 mls @ 200 mls/hr 04/15/23 00:30 04/15/23 00:58 Sod 4.5 gm/ Sodium Chloride IV 200 mls/hr Q6H MICHAEL Administration Sodium Chloride 3 ml 04/15/23 00:00 04/14/23 23:50 0.9 % Sodium Chloride Flush 3 Ml Syringe IVFLUSH 3 ml QSHIFT MICHAEL Administration Discontinued Medications Generic Name Dose Route Start Last Admin Trade Name Radamesq PRN Reason Stop Dose Admin Enoxaparin Sodium 40 mg 04/14/23 23:45 04/15/23 00:31 Enoxaparin Sodium 40 Mg/0.4 Ml Syringe SUBCUT Not Given Q24H MICHAEL Sodium Chloride 1,000 mls @ 999 mls/hr 04/14/23 18:15 04/14/23 23:07 Ns IV 04/14/23 19:15 Infused .Q1H1M MICHAEL Infusion Sodium Chloride 1,000 mls @ 999 mls/hr 04/14/23 21:30 04/15/23 00:37 Ns IV 04/14/23 22:30 Infused .Q1H1M MICHAEL Infusion Sodium Chloride 250 mls @ 999 mls/hr 04/14/23 21:30 04/15/23 00:37 Ns IV 04/14/23 21:45 Infused .Q16M MICHAEL Infusion Levofloxacin 500 mg in 100 mls @ 100 mls/hr 04/14/23 23:33 04/15/23 00:58 Levaquin IV 04/15/23 00:32 Infused ONCE ONE Infusion Metronidazole 500 mg in 100 mls @ 100 mls/hr 04/14/23 23:33 04/15/23 00:59 Flagyl IV 04/15/23 00:32 Infused ONCE ONE Infusion Iohexol 100 ml 04/14/23 21:15 04/14/23 21:15 Iohexol 350 Mg/Ml 100 Ml Infus..Btl IV 04/14/23 21:16 85 ml ONCE ONE Administration Ondansetron HCl 4 mg 04/14/23 18:07 04/14/23 20:11 Ondansetron Hcl 4 Mg/2 Ml Vial IVPUSH 04/14/23 18:08 4 mg ONCE ONE Administration Medical Decision Making Medical Decision Making MDM Narrative: Patient is a 68-year-old female with past medical history of anemia, cirrhosis, diabetes, hepatitis-C, hypertension, hypothyroidism, Parkinson's presenting to emergency department via EMS with daughter for evaluation of nausea vomiting altered mental status as per HPI. She is noncompressive with me at the time of examination. Her abdominal examination is benign, does not appear to have tenderness upon evaluation, it is soft without rigidity or guarding. Per patient's daughter this is similar with prior episodes were she was found to have TARUN. Will obtain CBC to evaluate for leukocytosis/ anemia, CMP and lipase to evaluate for abnormal electrolytes /abnormal renal function/ abnormal hepatic/biliary function, CT of the abdomen and pelvis and Urinalysis. Differential Diagnosis Differential Diagnoses: The differential diagnosis associated with the presentation includes (Viral syndrome, cholecystitis, pancreatitis, bowel obstruction, colitis, diverticulitis, appendicitis, urinary tract infection, pyelonephritis, encephalopathy) Admission/Observation Consideration of admission/observation: Escalation of care including admission/observation considered Consult Healthcare Provider Management of the patient was discussed with: Hospitalist Lab Data MDM Lab Attestation statement: I reviewed the patient's lab results. as per course narrative 04/14/23 20:25 04/14/23 20:25 Labs: Lab Results 04/14/23 04/14/23 Range/Units 20:25 23:19 WBC 3.9 L (4.8-10.8) X10*3/uL RBC 3.06 L (4.20-5.50) X10*6/uL Hgb 10.6 L (12.0-16.0) g/dl Hct 31.8 L (37.0-47.0) % MCV 103.9 H (80.0-98.0) fL MCH 34.6 H (27.0-33.0) pg MCHC 33.3 (31.0-35.0) g/dl RDW 15.9 (11.0-16.0) % Plt Count 60 L (160-400) X10*3/uL MPV 11.1 (9.4-12.3) fL Immature Gran % (Auto) 0.3 (0.0-0.4) % Neut % (Auto) 56.7 (45-73) % Lymph % (Auto) 28.2 (20-40) % [place] % (Auto) 11.7 H (2-11) % Eos % (Auto) 2.8 (0-4) % Baso % (Auto) 0.3 (0-2) % Lymph # (Auto) 1.1 L (1.2-4.9) X10*3/uL [place] # (Auto) 0.5 (0.1-1.2) X10*3/uL Eos # (Auto) 0.1 (0.0-0.4) X10*3/uL Baso # (Auto) 0.0 (0.0-0.2) X10*3/uL Abs Immat Gran (auto) 0.01 (0.00-0.03) X10*3/uL Absolute Neuts (auto) 2.2 (2.0-8.3) x10*3/uL Absolute Nucleated RBC 0.000 (0.0-0.012) X10*3/uL Nucleated RBC % (auto) 0.0 (0.0-0.2) /100WBC PT 25.0 H D (11.1-13.3) SEC INR 2.1 H (0.9-1.1) Sodium 140 (135-145) mmol/L Potassium 3.4 (3.3-5.1) mmol/L Chloride 112 H (96-108) mmol/L Carbon Dioxide 19 L (22-29) mmol/L Anion Gap 12 (12-20) BUN 6 L (9-16) mg/dL Creatinine 0.59 (0.5-1.4) mg/dL Estim Creat Clear Calc 80.0 Estimated GFR > 60 Random Glucose 152 H (60-115) mg/dL Lactic Acid 6.1 H* (0.5-2.0) mmol/L Lactic Acid F/U @ 2Hr 3.6 H* (0.5-2.0) mmol/L Calcium 8.8 (8.4-10.2) mg/dL Magnesium 1.6 (1.6-2.6) mg/dL Total Bilirubin 6.6 H (0.0-1.0) mg/dL AST 75 H (5-31) U/L ALT 23 (0-31) U/L Alkaline Phosphatase 197 H (39-117) U/L Ammonia 69 H (13-55) umol/L Troponin I High Sens < 2.7 D (<3.5-17.0) ng/L Total Protein 8.0 (6.5-8.0) g/dL Albumin 1.9 L (3.5-5.0) g/dL Lipase 53 (8-78) U/L COVID-19 ([facility]) Negative (Negative) COVID-19 Clin Com See Note Influenza Type A (ANDRA) Negative (Negative) Influenza Type B (ANDRA) Negative (Negative) Influenza A & B Note See Note Radiology Impression Discussion of test interpretation with radiology: I have reviewed the radiologist's reading. Radiologist Impression: CT/CT abdomen pelvis w IV con IMPRESSION: Cirrhotic liver with splenomegaly, varices and soft tissue anasarca.. Prominent thickened small bowel loops as well as apparent thickening of the ascending colon. Consider an enteritis or enterocolitis. Gastric fold thickening may be related to underdistention. Independent Historian Clinical information obtained from an independent historian. History obtained from or confirmed by: EMS and Other ( daughter present at bedside who confirms history) External Record Review External record reviewed: Inpatient record Discharge Plan Discharge Clinical Impression: Metabolic encephalopathy, Intractable nausea and vomiting, Enteritis Patient Disposition: Admitted As Inpatient
[2023-04-14] MEDS: ondansetron HCL 4 MG/2 ML VIAL IVPUSH (20:11)
[2023-04-14] MEDS: 0.9 % Sodium Chloride 1,000 ML 999 ML IV ×2 (20:14→23:06)
[2023-04-14 20:34] LABS: Basophils Percent Auto 0.3 % (0-2); Eosinophils Absolute Auto 0.1 X10*3/uL (0.0-0.4); Eosinophils Percent Auto 2.8 % (0-4); Hematocrit 31.8 % (37.0-47.0); Hemoglobin 10.6 g/dl (12.0-16.0); Imm Gran Abs Auto 0.01 X10*3/uL (0.00-0.03); Imm Gran Pct Auto 0.3 % (0.0-0.4); Lymphocytes Absolute Auto 1.1 X10*3/uL (1.2-4.9); Lymphocytes Percent Auto 28.2 % (20-40); MANUAL DIFF FLAG NO; Mean Corpuscular HGB Conc 33.3 g/dl (31.0-35.0); Mean Corpuscular Hemoglobin 34.6 pg (27.0-33.0); Mean Corpuscular Volume 103.9 fL (80.0-98.0); Mean Platelet Volume 11.1 fL (9.4-12.3); Monocytes Absolute Auto 0.5 X10*3/uL (0.1-1.2); Monocytes Percent Auto 11.7 % (2-11); Neutrophils Absolute Auto 2.2 x10*3/uL (2.0-8.3); Neutrophils Percent Auto 56.7 % (45-73); Red Blood Count 3.06 X10*6/uL (4.20-5.50); Red Cell Distribution Width 15.9 % (11.0-16.0); White Blood Count 3.9 X10*3/uL (4.8-10.8)
[2023-04-14 20:40] LABS: Platelet Count 60 X10*3/uL (160-400)
[2023-04-14 20:41] LABS: Ammonia 69 umol/L (13-55)
[2023-04-14 20:43] LABS: INTERNATIONAL NORM RATIO 2.1 (0.9-1.1)
[2023-04-14 20:50] LABS: Alanine Aminotransferase 23 U/L (0-31); Albumin Level 1.9 g/dL (3.5-5.0); Alkaline Phosphatase 197 U/L (39-117); Anion Gap 12 (12-20); Aspartate Amino Transferase 75 U/L (5-31); Bilirubin Total 6.6 mg/dL (0.0-1.0); Blood Urea Nitrogen 6 mg/dL (9-16); COVID-19 Test Negative (Negative); Calcium 8.8 mg/dL (8.4-10.2); Carbon Dioxide 19 mmol/L (22-29); Chloride 112 mmol/L (96-108); Estimated Glomerular Filt Rate > 60; Glucose Random 152 mg/dL (60-115); IDNOW Serial# 08D9AD1C; IDNOW Serial# BCCEAD1C; Influenza A Negative (Negative); Influenza B2 Negative (Negative); Lipase 53 U/L (8-78); Magnesium 1.6 mg/dL (1.6-2.6); Potassium 3.4 mmol/L (3.3-5.1); Sodium 140 mmol/L (135-145)
--- NOTE | 2023-04-14 20:57 | PC.NURSE ---
critical lactic of 6.1, notified GERTRUDIS Gilmore
[2023-04-14 20:58] LABS: Lactic Acid 6.1 mmol/L (0.5-2.0); Troponin-I High Sensitivity < 2.7 ng/L (<3.5-17.0)
[2023-04-14] MEDS: iohexoL 350 MG/ML 100 ML INFUS..BTL IV (21:15)
[2023-04-14 22:32] LABS: Reflex Lactate? Lactic Acid Added
[2023-04-14] MEDS: 0.9 % Sodium Chloride 250 ML 999 ML IV (23:07)
--- NOTE | 2023-04-14 23:36 | PC.NURSE ---
I assumed care of the pt at 2300. Pt is resting quietly in bed at this time with fluids running. Family at the bedside. Pt has a 20g IV in the right AC, I placed a 22g IV in the left wrist. Labs were drawn and sent.
--- NOTE | 2023-04-14 23:49 | PM.IMHP ---
History of Present Illness Date of Service: 04/14/23 Chief Complaint: Vomiting This is a 68-year-old female with pertinent history of liver cirrhosis, hypothyroidism, Parkinson's disease, mixed hyperlipidemia was brought to the emergency department for evaluation of altered mentation and vomiting. Patient is lethargic and drowsy at the time of my evaluation. Unable to provide history. History obtained from family at bedside. Patient has been having multiple episodes of vomiting on the day of presentation. She was also noted to be drowsy and lethargic. Reduced p.o. intake. Unable to obtain review of systems. At baseline, patient is alert and oriented x3. No diarrhea. Review of Systems Review of Systems: Yes Unobtainable due to mental status PMFSH Medical History Cirrhosis Thrombocytopenia Cirrhosis Hx of hepatitis C Anemia Hyperthyroidism Hypertension Parkinson disease Diabetes Severe sepsis Family History Daughter Diabetes Daughter Diabetes Brother HTN (hypertension) Surgical History History of tubal ligation History of tonsillectomy History of cholecystectomy History of esophagogastroduodenoscopy (EGD) H/O colonoscopy Hx of lithotripsy History of cystoscopy Social History Household Members: Family Household Members Other:: 6 Housing: House Are you a primary healthcare corporate account director to a significant other at home: No Do you presently have visiting nurse or other home services: Yes Unable to assess alcohol history related to: Unknown Alcohol intake: never Patient Tobacco Use Status: Never used Tobacco Smoked in Last 30 Days: No Second Hand Smoke Exposure: No Use of substances other than those prescribed or required for medical reasons: No Advance Directives: Yes Advance Directives on File: Yes Advance Directives Date on File: 04/25/20 service: No Current occupational status: disabled Meds Allergies Allergy/AdvReac Type Severity Reaction Status Date / Time aspirin [ASPIRIN] Allergy Intermediate HIVES Verified 03/19/23 13:26 Penicillins [PCN] Allergy Intermediate HIVES Verified 03/19/23 13:26 Active Medications: Current Medications Levofloxacin (Levaquin) 500 mg in 100 mls @ 100 mls/hr IV ONCE ONE Stop: 04/15/23 00:32 Metronidazole (Flagyl) 500 mg in 100 mls @ 100 mls/hr IV ONCE ONE Stop: 04/15/23 00:32 Home Medications Medication Instructions Recorded Confirmed Last Taken Type atorvastatin 20 mg tablet 20 mg PO BEDTIME 04/21/20 03/17/23 02/21/23 History carbidopa 25 mg-levodopa 100 mg 1 tab PO TID 04/21/20 03/17/23 02/22/23 History tablet levothyroxine 75 mcg tablet 75 mcg PO DAILY 04/21/20 03/17/23 02/22/23 History linagliptin 2.5 mg-metformin 1,000 1 tab PO BIDWM 04/21/20 03/17/23 02/22/23 History mg tablet (Jentadueto) omeprazole 20 mg capsule,delayed 20 mg PO DAILY 04/21/20 03/17/23 02/22/23 History release calcium carbonate 500 mg-vitamin 1 tab PO QAM 11/09/21 03/17/23 02/22/23 History D3 10 mcg (400 unit) tablet (Oyster Shell Calcium-Vitamin D3) acetaminophen 650 mg 650 mg PO Q8H PRN Pain 12/01/21 03/17/23 Unknown History tablet,extended release melatonin 5 mg tablet 5 mg PO BEDTIME 12/01/21 03/17/23 02/21/23 History acarbose 50 mg tablet 50 mg PO TID 09/16/22 03/17/23 02/22/23 History montelukast 10 mg tablet 10 mg PO BEDTIME 09/16/22 03/17/23 02/21/23 History lactulose 10 gram/15 mL oral 30 ml PO DAILY 02/22/23 03/17/23 02/22/23 History solution Physical Exam Vital Signs and Narrative: Vital Signs: Last Vital Signs Temp 97.7 F 04/14/23 17:48 Pulse 103 H 04/14/23 18:57 Resp 16 04/14/23 18:57 BP 130/61 04/14/23 18:57 Pulse Ox 98 04/14/23 18:57 O2 Del Method Room Air 04/14/23 18:57 BMI result Body Mass Index 31.2 Elderly female lying in bed in no distress Neck supple, no JVD Regular rate and rhythm, S1-S2 heard Decreased breath sounds at bases Abdomen soft nontender, no guarding, no rigidity Patient is drowsy and only eye opening to painful stimulus, non conversational, not following commands Psych: Lethargic Results Labs 04/14/23 20:25 04/14/23 20:25 Labs: Laboratory Results - last 24 hr 04/14/23 20:25 MCV 103.9 H MCH 34.6 H MCHC 33.3 RDW 15.9 Plt Count 60 L MPV 11.1 Immature Gran % (Auto) 0.3 Neut % (Auto) 56.7 Lymph % (Auto) 28.2 [place] % (Auto) 11.7 H Eos % (Auto) 2.8 Baso % (Auto) 0.3 Lymph # (Auto) 1.1 L [place] # (Auto) 0.5 Eos # (Auto) 0.1 Baso # (Auto) 0.0 Abs Immat Gran (auto) 0.01 Absolute Neuts (auto) 2.2 Absolute Nucleated RBC 0.000 Nucleated RBC % (auto) 0.0 PT 25.0 H D INR 2.1 H Anion Gap 12 Estim Creat Clear Calc 80.0 Estimated GFR > 60 Random Glucose 152 H Lactic Acid 6.1 H* Calcium 8.8 Magnesium 1.6 Total Bilirubin 6.6 H AST 75 H ALT 23 Alkaline Phosphatase 197 H Ammonia 69 H Total Protein 8.0 Albumin 1.9 L Lipase 53 COVID-19 ([facility]) Negative COVID-19 Clin Com See Note Influenza Type A (ANDRA) Negative Influenza Type B (ANDRA) Negative Influenza A & B Note See Note Imaging Radiologist's Impressions: Impressions Abdomen/Pelvis CT 04/14/23 21:16 IMPRESSION: Cirrhotic liver with splenomegaly, varices and soft tissue anasarca.. Prominent thickened small bowel loops as well as apparent thickening of the ascending colon. Consider an enteritis or enterocolitis. Gastric fold thickening may be related to underdistention. Fleischner guidelines were followed. Assessment and Plan (1) Enteritis: Status: Inactive (2) Encephalopathy: Status: Resolved Plan This is a 68-year-old female with pertinent history of liver cirrhosis, hypothyroidism, Parkinson's disease, mixed hyperlipidemia was brought to the emergency department for evaluation of altered mentation and vomiting. #. Intractable nausea/vomiting likely due to enteritis/enterocolitis. Will admit patient and initiate empiric IV antibiotics. Resuscitated with IV crystalloids in the ER. NPO until mentation improves #. Acute metabolic encephalopathy in the setting of above #. Lactic acidosis. No sepsis. Likely due to metformin use and liver disease. #. Liver cirrhosis. On diuretics and lactulose #. Thrombocytopenia due to above. #. Parkinson's disease. On Sinemet #. Hypothyroidism. On Synthroid #. Sgi-swfpjcj-tniosulty diabetes mellitus. Initiating Accu-Cheks with sliding scale insulin Med rec pending DVT prophylaxis: Mechanical. Defer Lovenox due to thrombocytopenia Full code Admit as inpatient and will require two night minimum hospital stay for IV antibiotics and close monitoring of mentation Time Spent With Patient Time: Total time managing care of this patient today ____ minutes. Quality Stroke Does the patient have a stroke diagnosis?: No VTE Prior VTE?: No VTE Risk Level:: Medical - moderate - high VTE Device Contraindication: N/A - Device Ordered VTE Drug Contraindication: Treatment Not Indicated
[2023-04-14] MEDS: levoFLOXacin/D5W 500 MG/100 ML PIGGYBACK 100 MG IV (23:50)
[2023-04-14] MEDS: 0.9 % Sodium Chloride Flush 3 ML SYRINGE IVFLUSH (23:50)
[2023-04-14] MEDS: metroNIDAZOLE/NS 500 MG/100 ML PIGGYBACK 100 MG IV (23:50)
[2023-04-14 23:52] LABS: ~Lactic Acid-LAB USE ONLY 3.6 mmol/L (0.5-2.0)
[2023-04-15] VITALS (7 sets, daily range): BP systolic 106–125; BP diastolic 51–59; PULSE 79–97; RESP 16–20; TEMP 36.1–37.3; O2SAT 96–99; BMI 34.5
[2023-04-15] MEDS: Piperacillin Sodium/Tazobactam 4.5 GM in 0.9 % Sodium Chloride 100 ML IV ×2 (00:58→05:35)
--- NOTE | 2023-04-15 01:04 | PC.NURSE ---
Attempted to call report at [phone], no response.
[2023-04-15 01:24] LABS: Reflex Lactate? 2 Y
[2023-04-15 02:44] LABS: Alanine Aminotransferase 37 U/L (0-31); Albumin Level 1.6 g/dL (3.5-5.0); Alkaline Phosphatase 142 U/L (39-117); Anion Gap 8 (12-20); Aspartate Amino Transferase 59 U/L (5-31); Bilirubin Total 5.1 mg/dL (0.0-1.0); Blood Urea Nitrogen 6 mg/dL (9-16); Calcium 7.5 mg/dL (8.4-10.2); Carbon Dioxide 22 mmol/L (22-29); Chloride 117 mmol/L (96-108); Creatinine Clr Calc Pharmacy 77.4; Estimated Glomerular Filt Rate > 60; Glucose Random 116 mg/dL (60-115); Potassium 3.2 mmol/L (3.3-5.1); Sodium 144 mmol/L (135-145); Total Protein 6.4 g/dL (6.5-8.0); ~Lactic Acid-LAB USE ONLY 2.7 mmol/L (0.5-2.0)
--- NOTE | 2023-04-15 02:52 | PC.NURSE ---
Pt rolled and cleaned, pt had voided into her brief. Medication administration delayed due to acuity elsewhere, Floor RN aware. Pt being transported at this time.
[2023-04-15 06:26] LABS: Glucose, Whole Blood 107 mg/dL (60-115)
[2023-04-15 07:25] LABS: Glucose, Whole Blood 101 mg/dL (60-115)
--- NOTE | 2023-04-15 07:26 | PC.NURSE ---
Assumed care of patient at this time.
[2023-04-15] MEDS: Dextrose 50 % 25 GM/50 ML SYRINGE IVPUSH (07:56)
[2023-04-15] MEDS: 0.9 % Sodium Chloride Flush 3 ML SYRINGE IVFLUSH ×3 (07:57→20:44)
--- NOTE | 2023-04-15 09:08 | MHC.CM.PN ---
CM spoke with Daughter/HCP/Yakelin @ [phone] and addressed IMM with her (original will be mailed certified letter to Yakelin and a copy has been placed on the chart). Patient lives in an Adult Foster Care setting with her Daughter and the goal for dc is to return to that setting. [facility] has initiated and will follow for dc planning.Patient uses a walker and her PCP is Dr. Nascimento.
[2023-04-15 09:21] LABS: Ammonia 55 umol/L (13-55)
[2023-04-15 09:33] LABS: Appearance Urine Cloudy; Color Urine Dark Yellow; Glucose Urine UA Negative (Negative); Leukocyte Esterase Urine Small (1+) (Negative); Nitrite Urine Positive (Negative); PH 5.5 (5.0-9.0); Specific Gravity - Urine >= 1.030 (1.005-1.025); UMIC TRIGGER UACC YES; Urine Blood Negative (Negative); Urine Ketones Negative (Negative); Urine Protein Trace mg/dL (Neg-Trace)
[2023-04-15 09:46] LABS: Bacteria Urine 4+ (None Seen); Hyaline Casts Urine 0-2 /LPF (0-2); Other Crystals Urine Present; UACC Culture Trigger YES; WBC Urine >50 /HPF (0-5)
--- NOTE | 2023-04-15 10:11 | PHA.MEDREC ---
Pharmacy Consult ? Medication Reconciliation Pharmacy has completed the medication reconciliation.Spoke to daughter Yakelin Alves and verified patient's med list
[2023-04-15 11:09] LABS: Glucose, Whole Blood 177 mg/dL (60-115)
[2023-04-15] MEDS: cefTRIAXone sodium 1 GM in 0.9 % Sodium Chloride 50 ML IV (11:49)
[2023-04-15] MEDS: Insulin Lispro 100 UNIT/ML 3 ML VIAL SUBCUT ×2 (11:49→18:20)
[2023-04-15] MEDS: Lactulose 20 GM/30 ML SOLUTION 10 GM PO ×2 (12:01→20:44)
--- NOTE | 2023-04-15 12:22 | P.PNIM_ITS ---
Subjective Subjective Date of Service: 04/15/23 Interval History: seen and examined this morning follow up for N/V history obtained with assistance of work counselor awake, alert, able to answer simple questions - no abdominal pain, no nausea at present Review of Systems Review of Systems: Yes all other systems are reviewed and are negative Constitutional Constitutional: Denies fever(s) Cardiovascular Cardiovascular: Denies chest pain and Denies dyspnea Respiratory Respiratory: Denies dyspnea Gastrointestinal Gastrointestinal: Denies abdominal pain Physical Exam 2 Vital Signs: Vital Signs: Last Vital Signs Temp 97.3 F 04/15/23 11:19 Pulse 85 04/15/23 11:19 Resp 16 04/15/23 11:19 BP 117/56 L 04/15/23 11:19 Pulse Ox 97 04/15/23 11:19 O2 Del Method Room Air 04/15/23 11:19 BMI result Body Mass Index 34.5 Const: General: cooperative, comfortable, no acute distress, alert and awake Nutritional Appearance: average body habitus Orientation/consciousness: o riented to person and oriented to place Resp: Effort & Inspection: normal respiratory effort, able to speak in complete sentences, no respiratory distress and no use of accessory muscles Cardio: Rate: regular rate GI: Inspection: No distended Palpation (GI): Soft to palpation and nontender Neuro: General: oriented to person, oriented to place and moves all extremities Extrem: Other: b/l leg edema Objective Data Active Medications Acetaminophen (Acetaminophen 325 Mg Tablet) 650 mg PO Q6H PRN PRN Reason: Pain, Mild (Pain Scale 1-3) Calcium Carbonate/Cholecalciferol (Calcium + Vitamin D 250 Mg Tablet) 250 mg PO DAILY [facility] Carbidopa/Levodopa (Carbidopa/Levodopa 25/100 Tablet) 1 tab PO TID [facility] Dextrose (Dextrose 50 % 25 Gm/50 Ml Syringe) 25 gm IVPUSH Q15M PRN; Protocol PRN Reason: per Hypoglycemia Standing Ord. Last Admin: 04/15/23 07:56 Dose: 25 gm Documented By: SUNNY Glucose (Glucose Gel 15 Gm Gel..Gram.) 15 gm PO Q15M PRN; Protocol PRN Reason: per Hypoglycemia Standing Ord. Ceftriaxone Sodium 1 gm/ (Sodium Chloride) 50 mls @ 100 mls/hr IV Q24H [facility] Last Admin: 04/15/23 11:49 Dose: 100 mls/hr Documented By: SUNNY Insulin Human Lispro (Insulin Lispro 100 Unit/Ml 3 Ml Vial) 0 unit SUBCUT Q6H [facility]; Protocol Last Admin: 04/15/23 11:49 Dose: 2 unit Documented By: SUNNY Lactulose (Lactulose 20 Gm/30 Ml Solution) 10 gm PO BID [facility] Last Admin: 04/15/23 12:01 Dose: 10 gm Documented By: SUNNY Levothyroxine Sodium (Levothyroxine Sodium 75 Mcg Tablet) 75 mcg PO DAILY [facility] Melatonin (Melatonin 3 Mg Tablet) 6 mg PO BEDTIME PRN PRN Reason: Insomnia Montelukast Sodium (Montelukast Sodium 10 Mg Tablet) 10 mg PO BEDTIME [facility]EL Omeprazole (Omeprazole 20 Mg Capsule.Dr) 20 mg PO DAILY [facility] Ondansetron HCl (Ondansetron Hcl 4 Mg/2 Ml Vial) 4 mg IVPUSH Q8H PRN PRN Reason: Nausea and Vomiting Sodium Chloride (0.9 % Sodium Chloride Flush 3 Ml Syringe) 3 ml IVFLUSH QSHIFT [facility] Last Admin: 04/15/23 11:49 Dose: 3 ml Documented By: SUNNY Spironolactone (Spironolactone 25 Mg Tablet) 25 mg PO BID [facility]; Protocol Labs 04/14/23 20:25 04/15/23 02:19 Labs: Laboratory Results - last 24 hr 04/14/23 04/14/23 04/15/23 20:25 23:19 02:19 MCV 103.9 H MCH 34.6 H MCHC 33.3 RDW 15.9 Plt Count 60 L MPV 11.1 Immature Gran % (Auto) 0.3 Neut % (Auto) 56.7 Lymph % (Auto) 28.2 [place] % (Auto) 11.7 H Eos % (Auto) 2.8 Baso % (Auto) 0.3 Lymph # (Auto) 1.1 L [place] # (Auto) 0.5 Eos # (Auto) 0.1 Baso # (Auto) 0.0 Abs Immat Gran (auto) 0.01 Absolute Neuts (auto) 2.2 Absolute Nucleated RBC 0.000 Nucleated RBC % (auto) 0.0 PT 25.0 H D INR 2.1 H Anion Gap 12 8 L Estim Creat Clear Calc 80.0 77.4 Estimated GFR > 60 > 60 POC Glucose Random Glucose 152 H 116 H Lactic Acid 6.1 H* Lactic Acid F/U @ 2Hr 3.6 H* Lactic Acid F/U @ 4Hr 2.7 H* Calcium 8.8 7.5 L D Magnesium 1.6 Total Bilirubin 6.6 H 5.1 H AST 75 H 59 H ALT 23 37 H Alkaline Phosphatase 197 H 142 H Ammonia 69 H Total Protein 8.0 6.4 L Albumin 1.9 L 1.6 L Lipase 53 Urine Color Urine Appearance Urine pH Ur Specific [place] Urine Protein Urine Glucose (UA) Urine Ketones Urine Blood Urine Nitrite Ur Leukocyte Esterase Urine RBC Urine WBC Ur Squamous Epith Cells Other Crystals Urine Bacteria Hyaline Casts COVID-19 ([facility]) Negative COVID-19 Clin Com See Note Influenza Type A (ANDRA) Negative Influenza Type B (ANDRA) Negative Influenza A & B Note See Note 04/15/23 04/15/23 04/15/23 03:13 07:21 08:44 MCV MCH MCHC RDW Plt Count MPV Immature Gran % (Auto) Neut % (Auto) Lymph % (Auto) [place] % (Auto) Eos % (Auto) Baso % (Auto) Lymph # (Auto) [place] # (Auto) Eos # (Auto) Baso # (Auto) Abs Immat Gran (auto) Absolute Neuts (auto) Absolute Nucleated RBC Nucleated RBC % (auto) PT INR Anion Gap Estim Creat Clear Calc Estimated GFR POC Glucose 107 101 Random Glucose Lactic Acid Lactic Acid F/U @ 2Hr Lactic Acid F/U @ 4Hr Calcium Magnesium Total Bilirubin AST ALT Alkaline Phosphatase Ammonia 55 Total Protein Albumin Lipase Urine Color Urine Appearance Urine pH Ur Specific [place] Urine Protein Urine Glucose (UA) Urine Ketones Urine Blood Urine Nitrite Ur Leukocyte Esterase Urine RBC Urine WBC Ur Squamous Epith Cells Other Crystals Urine Bacteria Hyaline Casts COVID-19 ([facility]) COVID-19 Clin Com Influenza Type A (ANDRA) Influenza Type B (ANDRA) Influenza A & B Note 04/15/23 04/15/23 09:13 11:05 MCV MCH MCHC RDW Plt Count MPV Immature Gran % (Auto) Neut % (Auto) Lymph % (Auto) [place] % (Auto) Eos % (Auto) Baso % (Auto) Lymph # (Auto) [place] # (Auto) Eos # (Auto) Baso # (Auto) Abs Immat Gran (auto) Absolute Neuts (auto) Absolute Nucleated RBC Nucleated RBC % (auto) PT INR Anion Gap Estim Creat Clear Calc Estimated GFR POC Glucose 177 H Random Glucose Lactic Acid Lactic Acid F/U @ 2Hr Lactic Acid F/U @ 4Hr Calcium Magnesium Total Bilirubin AST ALT Alkaline Phosphatase Ammonia Total Protein Albumin Lipase Urine Color Dark Yellow Urine Appearance Cloudy Urine pH 5.5 Ur Specific [place] >= 1.030 H Urine Protein Trace Urine Glucose (UA) Negative Urine Ketones Negative Urine Blood Negative Urine Nitrite Positive H Ur Leukocyte Esterase Small (1+) H Urine RBC 3-5 H Urine WBC >50 H Ur Squamous Epith Cells 3-5 Other Crystals Present Urine Bacteria 4+ Hyaline Casts 0-2 COVID-19 ([facility]) COVID-19 Clin Com Influenza Type A (ANDRA) Influenza Type B (ANDRA) Influenza A & B Note Assessment and Plan (1) Intractable nausea and vomiting: Status: Acute (2) Metabolic encephalopathy: Status: Acute (3) Urinary tract infection: Status: Inactive Plan This is a 68-year-old female with pertinent history of liver cirrhosis, hypothyroidism, Parkinson's disease, mixed hyperlipidemia was brought to the emergency department for evaluation of altered mentation and vomiting. Intractable nausea/vomiting CT showing enteritis/enterocolitis n/v resolved, likely viral, will d/c zosyn UTI will start ceftriaxone follow urine culture, blood cultures Acute metabolic encephalopathy due to hepatic encephalopathy and underlying UTI improving gabapentin on hold Lactic acidosis. No sepsis. Likely due to metformin use and liver disease. Liver cirrhosis ammonia levels improved continue aldactone and lactulose Hyperbilirubemia chronic hx of liver cirrhosis Thrombocytopenia chronic, due to above. Parkinson's disease continue Sinemet Hypothyroidism continue Synthroid [id number] diabetes mellitus. follow POCs, SSI hold baseline oral meds Med rec pending DVT prophylaxis: Mechanical. Defer Lovenox due to thrombocytopenia Full code Requires ongoing inpatient stay for IV antibiotics for treatment of UTI Time Spent With Patient Time: Total time managing care of this patient today ____ minutes. Quality Stroke Does the patient have a stroke diagnosis?: No VTE Prior VTE?: No VTE Risk Level:: Medical - moderate - high VTE Device Contraindication: N/A - Device Ordered VTE Drug Contraindication: Treatment Not Indicated
[2023-04-15] MEDS: Carbidopa/Levodopa 25/100 TABLET 1 TAB PO ×2 (14:46→20:44)
[2023-04-15 15:18] LABS: Glucose, Whole Blood 220 mg/dL (60-115)
[2023-04-15 18:21] LABS: Glucose, Whole Blood 199 mg/dL (60-115)
[2023-04-15 20:27] LABS: Glucose, Whole Blood 188 mg/dL (60-115)
[2023-04-15 20:34] LABS: CDiff Gene PCR NEGATIVE (Negative)
[2023-04-15] MEDS: Montelukast Sodium 10 MG TABLET PO (20:43)
[2023-04-15] MEDS: Spironolactone 25 MG TABLET PO (20:44)
[2023-04-16 01:07] LABS: Glucose, Whole Blood 161 mg/dL (60-115)
[2023-04-16] MEDS: Insulin Lispro 100 UNIT/ML 3 ML VIAL SUBCUT ×2 (02:10→12:40)
[2023-04-16 03:06] VITALS: BP 105/58; PULSE 89; RESP 18; TEMP 36.7; O2SAT 96
[2023-04-16 07:01] LABS: Glucose, Whole Blood 129 mg/dL (60-115)
[2023-04-16 07:04] VITALS: BP 107/56; PULSE 82; RESP 20; TEMP 36.7; O2SAT 96
[2023-04-16] MEDS: Carbidopa/Levodopa 25/100 TABLET 1 TAB PO ×2 (08:34→14:26)
[2023-04-16] MEDS: 0.9 % Sodium Chloride Flush 3 ML SYRINGE IVFLUSH (08:34)
[2023-04-16] MEDS: Levothyroxine Sodium 75 MCG TABLET PO (08:34)
[2023-04-16] MEDS: Lactulose 20 GM/30 ML SOLUTION 10 GM PO (08:34)
[2023-04-16] MEDS: Calcium + Vitamin D 250 MG TABLET PO (08:34)
[2023-04-16] MEDS: Omeprazole 20 MG CAPSULE.DR PO (08:34)
[2023-04-16] MEDS: Spironolactone 25 MG TABLET PO (08:34)
[2023-04-16 10:05] LABS: Anion Gap 15 (12-20); Blood Urea Nitrogen 7 mg/dL (9-16); Calcium 7.9 mg/dL (8.4-10.2); Carbon Dioxide 17 mmol/L (22-29); Chloride 113 mmol/L (96-108); Estimated Glomerular Filt Rate > 60; Glucose Random 207 mg/dL (60-115); Potassium 4.7 mmol/L (3.3-5.1); Sodium 140 mmol/L (135-145)
[2023-04-16 10:57] LABS: Glucose, Whole Blood 183 mg/dL (60-115)
[2023-04-16 11:02] VITALS: BP 120/59; PULSE 81; RESP 20; TEMP 36.8; O2SAT 98
[2023-04-16] MEDS: cefTRIAXone sodium 1 GM in 0.9 % Sodium Chloride 50 ML IV (11:07)
[2023-04-16 12:05] LABS: Adenovirus F 40/41 Not Detected (Not Detect.); Astrovirus Not Detected (Not Detect.); Campylobacter Not Detected (Not Detect.); Cryptosporidium Not Detected (Not Detect.); Cyclospora cayetanensis Not Detected (Not Detect.); E. coli EAEC Not Detected (Not Detect.); E. coli EPEC Not Detected (Not Detect.); E. coli ETEC Not Detected (Not Detect.); E. coli STEC Not Detected (Not Detect.); Entamoeba histolytica Not Detected (Not Detect.); Giardia lamblia Not Detected (Not Detect.); Norovirus GI/GII Not Detected (Not Detect.); Plesiomonas shigelloides Not Detected (Not Detect.); Rotavirus A Not Detected (Not Detect.); Salmonella Not Detected (Not Detect.); Sapovirus Not Detected (Not Detect.); Shigella sp./EIEC Not Detected (Not Detect.); Vibrio Not Detected (Not Detect.); Vibrio Cholerae Not Detected (Not Detect.); Yersinia enterocolitica Not Detected (Not Detect.)
[2023-04-16 15:27] VITALS: BP 122/57; PULSE 70; RESP 16; TEMP 36.1; O2SAT 100
--- NOTE | 2023-04-16 16:06 | PM.DS ---
DS: Providers Provider Date of Service: 04/16/23 Date of admission: 04/14/23 23:47 Date of discharge: 04/16/23 Primary care physician: Everett Ng MD Attending physician on discharge: Carlos Gerardo Discharging clinician: Radha Byrnes DS: Diagnosis Discharge Diagnosis (1) Intractable nausea and vomiting: Status: Acute (2) Metabolic encephalopathy: Status: Acute (3) Urinary tract infection: Status: Inactive DS: Summary Hospital Course Hospital Course: From H&P on day of admission This is a 68-year-old female with pertinent history of liver cirrhosis, hypothyroidism, Parkinson's disease, mixed hyperlipidemia was brought to the emergency department for evaluation of altered mentation and vomiting. Patient is lethargic and drowsy at the time of my evaluation. Unable to provide history. History obtained from family at bedside. Patient has been having multiple episodes of vomiting on the day of presentation. She was also noted to be drowsy and lethargic. Reduced p.o. intake. Unable to obtain review of systems. At baseline, patient is alert and oriented x3. No diarrhea. Intractable nausea/vomiting. Initial CT showing enteritis/enterocolitis and initially treated with zosyn. GI panel negative, c.dif negative. n/v resolved, no abdominal pain, likely viral and therefore antibiotics were discontinued. she had no further abdominal pain, nausea, vomiting and and is tolerating a diet. UTI . Urinalysis consistent with urinary tract infection. History from patient is limited, urine culture was negative as well as blood cultures however given initial nausea vomiting will discharge to complete course of antibiotics. Acute metabolic encephalopathy. due to hepatic encephalopathy and underlying UTI. resolved and back to baseline Lactic acidosis. No sepsis. Likely due to metformin use and liver disease. Liver cirrhosis/hepatic encehalopathy. initially ammonia 69, ammonia levels improved to 55. likely elevated as unable to tolerate lactulose prior to admission due to nausea/vomiting. continued on aldactone and lactulose Time Spent with Patient Time attestation: Total time managing care of this patient today ____ minutes. Discharge coordination time: Greater than 30 minutes Quality: Safe Use of Opioids Does Pt have an Active Cancer Diagnosis on the Problem List?: No Quality: Stroke Does the patient have a stroke diagnosis?: No Physical Exam Vital Signs: Vital Signs: Last Vital Signs Temp 96.9 F 04/16/23 15:27 Pulse 70 04/16/23 15:27 Resp 16 04/16/23 15:27 BP 122/57 L 04/16/23 15:27 Pulse Ox 100 04/16/23 15:27 O2 Del Method Room Air 04/16/23 15:27 BMI result Body Mass Index 34.5 Const: General: cooperative, comfortable, no acute distress, alert and awake Nutritional Appearance: average body habitus Orientation/consciousness: oriented to person and oriented to place Resp: Effort & Inspection: normal respiratory effort, able to speak in complete sentences, no respiratory distress and no use of accessory muscles Cardio: Rate: regular rate GI: Inspection: No distended Palpation (GI): Soft to palpation and nontender Neuro: General: oriented to person, oriented to place and moves all extremities Extrem: Other: b/l leg edema DS: Data Data Completed and Pending Labs on day of discharge: Laboratory Results - last 24 hr 04/15/23 04/15/23 04/15/23 18:17 18:41 19:20 Sodium Potassium Chloride Carbon Dioxide Anion Gap BUN Creatinine Estim Creat Clear Calc Estimated GFR POC Glucose 199 H 188 H Random Glucose Calcium Stl C. cayetanensis PCR Not Detected Stool Rotavirus A PCR Not Detected Stl Adenov F 40/ PCR Not Detected Stool Astrovirus (PCR) Not Detected Stool Campylobacter PCR Not Detected Stool Cryptosporidium PCR Not Detected Stl Sh Tox Pr E STEC PCR Not Detected Stool E coli O157 PCR Not applicable Stl Enterotoxigenic E PCR Not Detected Stool EPEC (PCR) Not Detected Stool EAEC (PCR) Not Detected Stl E. histolytica PCR Not Detected Stool Giardia Lamblia PCR Not Detected Stl P. shigelloides PCR Not Detected Stool Salmonella PCR Not Detected Stool Sapovirus (PCR) Not Detected Stl Shigella/EIEC PCR Not Detected St Y.enterocolitica PCR Not Detected Stool Vibrio (PCR) Not Detected Stl Vibrio cholerae PCR Not Detected Stl Norovirus GI/GII PCR Not Detected C. difficile Tox B Gene NEGATIVE 04/16/23 04/16/23 04/16/23 00:59 06:52 09:08 Sodium 140 Potassium 4.7 D Chloride 113 H Carbon Dioxide 17 L Anion Gap 15 BUN 7 L Creatinine 0.71 Estim Creat Clear Calc 70.0 Estimated GFR > 60 POC Glucose 161 H 129 H Random Glucose 207 H Calcium 7.9 L Stl C. cayetanensis PCR Stool Rotavirus A PCR Stl Adenov F 40/ PCR Stool Astrovirus (PCR) Stool Campylobacter PCR Stool Cryptosporidium PCR Stl Sh Tox Pr E STEC PCR Stool E coli O157 PCR Stl Enterotoxigenic E PCR Stool EPEC (PCR) Stool EAEC (PCR) Stl E. histolytica PCR Stool Giardia Lamblia PCR Stl P. shigelloides PCR Stool Salmonella PCR Stool Sapovirus (PCR) Stl Shigella/EIEC PCR St Y.enterocolitica PCR Stool Vibrio (PCR) Stl Vibrio cholerae PCR Stl Norovirus GI/GII PCR C. difficile Tox B Gene 04/16/23 10:53 Sodium Potassium Chloride Carbon Dioxide Anion Gap BUN Creatinine Estim Creat Clear Calc Estimated GFR POC Glucose 183 H Random Glucose Calcium Stl C. cayetanensis PCR Stool Rotavirus A PCR Stl Adenov F 40/41 PCR Stool Astrovirus (PCR) Stool Campylobacter PCR Stool Cryptosporidium PCR Stl Sh Tox Pr E STEC PCR Stool E coli O157 PCR Stl Enterotoxigenic E PCR Stool EPEC (PCR) Stool EAEC (PCR) Stl E. histolytica PCR Stool Giardia Lamblia PCR Stl P. shigelloides PCR Stool Salmonella PCR Stool Sapovirus (PCR) Stl Shigella/EIEC PCR St Y.enterocolitica PCR Stool Vibrio (PCR) Stl Vibrio cholerae PCR Stl Norovirus GI/GII PCR C. difficile Tox B Gene Preliminary micro results at discharge 04/14/23 23:19 Blood Culture - Preliminary Blood - Venous No growth after 24 hours. 04/14/23 20:25 Blood Culture - Preliminary Blood - Venous No growth after 24 hours. Discharge Plan Discharge Anticipated Discharge Date/Time: 04/16/23 16:16 Patient Disposition: Home, Self-Care Discharge Diagnosis: metabolic encephalopathy UTI elevated ammonia levels Referrals: Everett Henning MD [Primary Care Provider] - 1 Week Discharge Medications: New cefuroxime axetil 250 mg tablet 250 mg PO BID 3 Days Qty: 6 0RF Continued atorvastatin 20 mg tablet 20 mg PO BEDTIME levothyroxine 75 mcg tablet 75 mcg PO DAILY omeprazole 20 mg capsule,delayed release(DR/EC) 20 mg PO DAILY carbidopa-levodopa 25-100 mg tablet 1 tab PO TID Jentadueto 2.5-1,000 mg tablet 1 tab PO DAILY calcium carbonate-vitamin D3 [Oyster Shell Calcium-Vit D3] 500 mg-10 mcg (400 unit) tablet 1 tab PO QAM alendronate 70 mg tablet 70 mg PO QWEEK gabapentin 300 mg capsule 300 mg PO TID clotrimazole 1 % cream 1 appl topical BID lactulose 10 gram/15 mL Solution 15 ml PO BID spironolactone [Aldactone] 25 mg tablet 25 mg PO BID 30 Days Qty: 60 0RF Hold Instructions: Resume on 02/28/23. montelukast 10 mg tablet 10 mg PO BEDTIME acarbose 50 mg tablet 50 mg PO TID Discharge Orders: Discharge Order (Routine); Ordered 04/16/23 Ordered By: Radha Byrnes Activity on Discharge: As tolerated Stand Alone Forms: Patient Portal Discharge page Care Plan Goals: see below Health Concerns: encephalopathy- resolved enterocolitis, N/V - resolved UTI hepatic encephalopathy - resolved Plan of Treatment: continue lactulose as prescribed uti - complete course of antibiotics call to schedule follow up appointment with PCP consider reduction of gabapentin dose as this can contribute to confusion - discuss with PCP Assessment: see discharge summary Patient Instructions: Cefuroxime (By mouth) Discharge Date/Time: 04/16/23 17:39
--- NOTE | 2023-04-16 16:16 | MHC.CM.PN ---
per hospitalist pt to be medically cleared for d/c home back to adult foster care, dtr/hcp abdi will transport.
== END 2023-04-16 17:39 | disposition home or self-care (01) | DRG 391 ==
LOC: HO.ED 18:06 → HO.EDOVER 04-15 00:07 → HO.IMC 04-15 00:41
PROVIDERS: Nurse Practitioner Family; Admitting Provider Student in an Organized Health Care Education/Training Program; Emergency Provider Emergency Medicine; PCP Internal Medicine; Visit Provider Physician Assistant Medical
DX: K52.9 Noninfective gastroenteritis and colitis, unspecified (principal); G93.41 Metabolic encephalopathy; E87.20 Acidosis, unspecified; N39.0 Urinary tract infection, site not specified; K74.60 Unspecified cirrhosis of liver; G20 Parkinson's disease; E78.2 Mixed hyperlipidemia; D69.59 Other secondary thrombocytopenia; E11.9 Type 2 diabetes mellitus without complications; E03.9 Hypothyroidism, unspecified; Z20.822 Contact with and (suspected) exposure to COVID-19; Z79.84 Long term (current) use of oral hypoglycemic drugs; Z79.890 Hormone replacement therapy; Z79.899 Other long term (current) drug therapy
CPT/HCPCS: 36415; 74177; 80048; 80053; 81001; 82140; 82947; 83605; 83690; 83735; 84484; 85025; 85610; 87040; 87086; 87493; 87502; 87507; 87635; 93005; 99285; J0696; J1956; J2405; J2543; Q9967

== ENCOUNTER → 2023-04-14 23:47 | Outpatient (BNV) | payer MEDICARE, MEDICAID, SELFPAY | PROVIDERS: Admitting Provider Student in an Organized Health Care Education/Training Program; Emergency Provider Emergency Medicine; PCP Internal Medicine; Visit Provider Student in an Organized Health Care Education/Training Program | DX: R11.2 Nausea with vomiting, unspecified (principal); G93.41 Metabolic encephalopathy; N39.0 Urinary tract infection, site not specified | CPT/HCPCS: 99222; 99232; 99239 ==

== ENCOUNTER 2023-04-26 13:21 | Inpatient (IN) | payer MEDICARE, MEDICAID, SELFPAY ==
--- NOTE | ~2023-04-26 | US_ITS ---
EXAMINATION: US ABDOMEN LIMITED CLINICAL INFORMATION: Ascites. COMPARISON: CT dated 04/14/2023 TECHNIQUE: Real-time imaging by the spring coverer FINDINGS: The only finding on this exam is trace free fluid in left lower quadrant. No significant ascites is present here. US/US abdomen limited IMPRESSION: Trace ascites in the left lower quadrant. No significant ascites.
--- NOTE | ~2023-04-26 | XR_ITS ---
EXAMINATION: XR CHEST CLINICAL INFORMATION: Palpitations and fatigue COMPARISON: Chest 02/22/2023, 01/24/2023 TECHNIQUE: AP upright view of the chest was obtained. 14:28 FINDINGS: The lungs are only mildly well expanded. Peribronchial thickening is seen. There is no focal consolidation, interstitial pulmonary edema or pneumothorax. No pleural effusion. There is moderate enlargement of the cardiac silhouette. No acute osseous abnormality. XR/XR chest 1V IMPRESSION: No pneumonia or CHF.
--- NOTE | 2023-04-26 13:26 | ED_ITS ---
HPI - General Adult General Chief complaint: Arrhythmia/Palpitations Stated complaint: SOB/Fast heart rate Time Seen by Provider: 04/26/23 20:50 Source: patient and family (Daughter) Mode of arrival: ambulatory Limitations: no limitations History of Present Illness HPI narrative: A 68-year-old female with pertinent history of liver cirrhosis, hypothyroidism, Parkinson's disease, HDL, TARUN not on hemodialysis. Patient take water pills as prescribed despite the patient been having shortness of breath, feeling palpitation, bilateral lower extremity swelling edema, family thinks that she gained lot of weight, patient also is complaining of left abdominal pain. Patient went to [facility] yesterday left before she was seen or evaluated. Related Data Home Medications Medication Instructions Recorded Confirmed atorvastatin 20 mg tablet 20 mg PO BEDTIME 04/21/20 04/15/23 carbidopa 25 mg-levodopa 100 mg 1 tab PO TID 04/21/20 04/15/23 tablet levothyroxine 75 mcg tablet 75 mcg PO DAILY 04/21/20 04/15/23 linagliptin 2.5 mg-metformin 1,000 1 tab PO DAILY 04/21/20 04/15/23 mg tablet (Jentadueto) omeprazole 20 mg capsule,delayed 20 mg PO DAILY 04/21/20 04/15/23 release calcium carbonate 500 mg-vitamin 1 tab PO QAM 11/09/21 04/15/23 D3 10 mcg (400 unit) tablet (Oyster Shell Calcium-Vitamin D3) acarbose 50 mg tablet 50 mg PO TID 09/16/22 04/15/23 montelukast 10 mg tablet 10 mg PO BEDTIME 09/16/22 04/15/23 alendronate 70 mg tablet 70 mg PO QWEEK 04/15/23 04/15/23 clotrimazole 1 % topical cream 1 appl topical BID 04/15/23 04/15/23 gabapentin 300 mg capsule 300 mg PO TID 04/15/23 04/15/23 lactulose 10 gram/15 mL oral 15 ml PO BID 04/15/23 04/15/23 solution Previous Rx's Medication Instructions Recorded spironolactone 25 mg tablet 25 mg PO BID 30 days #60 tabs 01/27/23 (Aldactone) cefuroxime axetil 250 mg tablet 250 mg PO BID 3 days #6 tabs 04/16/23 Allergies Allergy/AdvReac Type Severity Reaction Status Date / Time aspirin [ASPIRIN] Allergy Intermediate HIVES Verified 04/26/23 13:28 Penicillins [PCN] Allergy Intermediate HIVES Verified 04/26/23 13:28 Review of Systems 2 Review of Systems: Yes Unobtainable due to mental condition [facility] Past Medical History Medical History Cirrhosis Thrombocytopenia Cirrhosis Hx of hepatitis C Anemia Hyperthyroidism Hypertension Parkinson disease Diabetes Severe sepsis Surgical History History of tubal ligation History of tonsillectomy History of cholecystectomy History of esophagogastroduodenoscopy (EGD) H/O colonoscopy Hx of lithotripsy History of cystoscopy Family History Family History Daughter Diabetes Daughter Diabetes Brother HTN (hypertension) Social History Social History Household Members: Unknown / Unable to assess Household Members Other:: 6 Housing: Unknown / Unable to assess Are you a primary care companion to a significant other at home: No Do you presently have visiting nurse or other home services: Yes Unable to assess alcohol history related to: Unable to respond Alcohol intake: never Patient Tobacco Use Status: Tobacco use Unknown Second Hand Smoke Exposure: No Advance Directives: Yes Advance Directives on File: Yes Advance Directives Date on File: 04/25/20 service: No Current occupational status: disabled Physical Exam ED Vital Signs: Vital Signs - 24 hr 04/26/23 13:28 04/26/23 20:15 04/26/23 21:41 Temperature 98.0 F 96.8 F 97.7 F Pulse Rate 122 H 118 H 111 H Respiratory Rate 20 18 17 Blood Pressure 151/83 H 125/55 L 110/49 L Pulse Oximetry 99 99 100 Oxygen Delivery Method Room Air Room Air Room Air BMI result Body Mass Index 34.3 Vital signs have been reviewed and appear to be correct. Blood pressure elevated. Heart rate elevated. Respiratory rate normal. Temperature normal. Oxygen saturation normal. Appearance: Alert. Oriented X3. No acute distress. Head: Normal external exam. Normocephalic. Atraumatic. No [place] signs noted. No raccoon eyes noted Eyes: PERRLA. EOMI. Conjunctiva and sclera normal. Eyelids normal. ENT: TM's Normal. Pharynx normal. Uvula midline. Moist mucous membranes. No trismus noted. No drooling noted. No muffled voice noted. Neck: Normal inspection. Neck supple. FROM. No adenopathy. Thyroid Normal. No meningeal signs. No neck mass noted. CVS: Normal heart rate and rhythm. Heart sound normal. No murmurs noted. Pulses normal throughout. Respiratory: No respiratory distress. Painless inspiration. Breath sounds normal. No wheezes/rales/rhonchi noted. Chest nontender. No accessory muscle usage noted or decreased air movement noted. Abdomen: Soft and nontender. Bowel sounds normal in all 4 quadrants. No distention noted. No organomegaly noted. No visible injury noted. Back: No CVA tenderness. Full range of motion noted. Skin: Skin warm and dry. Normal skin color. Normal skin turgor. No rashes/lesions/lacerations noted. Extremities: +2 lower extremity edema. Extremities exhibit normal range of motion. Extremities nontender. Neuro: Oriented X 3. Cranial nerve exam: II-XII are grossly intact No motor deficit. No sensory deficit. Reflexes normal. Course Course Course Narrative: This is an RME: Additional HPI, ROS, PE not included below will be deferred to primary provider. 68 y o female presenting for evaluation of fatigue and palpitations. Previously seen for same complaints at [facility], states they did nothing . 1 episode of vomiting this morning. Plan -- labs, EKG, imaging Reevaluation(s) Reevaluation #1: 68-year-old female history of Espinoza out liver cirrhosis, SOB and bilateral edema gained significant weight. Patient also found to be tachycardic and short of breath with elevated D-dimer above 5 thousands. Will consider a dose of Lovenox and admit the patient to get V/Q scan in the morning. Time: 22:54 Medical Decision Making Differential Diagnosis Differential Diagnoses: The differential diagnosis associated with the presentation includes (Pulmonary embolism, CHF, severe edema, electrolyte abnormality, dehydration, ACS.) Admission/Observation Consideration of admission/observation: Escalation of care including admission/observation considered Consult Healthcare Provider Management of the patient was discussed with: Hospitalist (Dr. Acosta) Lab Data MDM Lab Attestation statement: I reviewed the patient's lab results. 04/26/23 13:45 04/26/23 20:53 Labs: Lab Results 04/26/23 04/26/23 04/26/23 Range/Units 13:45 20:53 21:40 WBC 6.9 (4.8-10.8) X10*3/uL RBC 2.87 L (4.20-5.50) X10*6/uL Hgb 10.1 L (12.0-16.0) g/dl Hct 30.1 L (37.0-47.0) % MCV 104.9 H (80.0-98.0) fL MCH 35.2 H (27.0-33.0) pg MCHC 33.6 (31.0-35.0) g/dl RDW 16.3 H (11.0-16.0) % Plt Count 88 L D (160-400) X10*3/uL MPV 10.1 (9.4-12.3) fL Immature Gran % (Auto) 0.6 H (0.0-0.4) % Neut % (Auto) 77.2 H (45-73) % Lymph % (Auto) 11.8 L (20-40) % Reeves % (Auto) 9.3 (2-11) % Eos % (Auto) 1.0 (0-4) % Baso % (Auto) 0.1 (0-2) % Lymph # (Auto) 0.8 L (1.2-4.9) X10*3/uL Reeves # (Auto) 0.6 (0.1-1.2) X10*3/uL Eos # (Auto) 0.1 (0.0-0.4) X10*3/uL Baso # (Auto) 0.0 (0.0-0.2) X10*3/uL Abs Immat Gran (auto) 0.04 H (0.00-0.03) X10*3/uL Absolute Neuts (auto) 5.3 (2.0-8.3) x10*3/uL Absolute Nucleated RBC 0.000 (0.0-0.012) X10*3/uL Nucleated RBC % (auto) 0.0 (0.0-0.2) /100WBC D-Dimer High Sensitivty 5251 NG/ML Sodium 128 L 126 L (135-145) mmol/L Potassium 5.1 5.2 H (3.3-5.1) mmol/L Chloride 96 96 (96-108) mmol/L Carbon Dioxide 15 L 17 L (22-29) mmol/L Anion Gap 22 H 18 (12-20) BUN 17 H 18 H (9-16) mg/dL Creatinine 0.77 0.70 (0.5-1.4) mg/dL Estim Creat Clear Calc 61.7 67.9 Estimated GFR > 60 > 60 Random Glucose 145 H 167 H (60-115) mg/dL Calcium 10.3 H D 10.1 (8.4-10.2) mg/dL Magnesium 1.6 (1.6-2.6) mg/dL Total Bilirubin 6.6 H (0.0-1.0) mg/dL AST 71 H (5-31) U/L ALT 42 H (0-31) U/L Alkaline Phosphatase 145 H (39-117) U/L Troponin I High Sens 22.7 H D 19.0 H 21.6 H (<3.5-17.0) ng/L Total Protein 8.0 (6.5-8.0) g/dL Albumin 1.9 L (3.5-5.0) g/dL Independent Interpretation I performed an independent interpretation of an: Plain X-Ray (Chest: No acute intrathoracic pathology.) Radiology Impression Discussion of test interpretation with radiology: I have reviewed the radiologist's reading. Discharge Plan Discharge Clinical Impression: Edema, Dyspnea Patient Disposition: Admitted As Inpatient Prescriptions: No Action atorvastatin 20 mg tablet 20 mg PO BEDTIME levothyroxine 75 mcg tablet 75 mcg PO DAILY omeprazole 20 mg capsule,delayed release(DR/EC) 20 mg PO DAILY carbidopa-levodopa 25-100 mg tablet 1 tab PO TID Jentadueto 2.5-1,000 mg tablet 1 tab PO DAILY calcium carbonate-vitamin D3 [Oyster Shell Calcium-Vit D3] 500 mg-10 mcg (400 unit) tablet 1 tab PO QAM alendronate 70 mg tablet 70 mg PO QWEEK gabapentin 300 mg capsule 300 mg PO TID clotrimazole 1 % cream 1 appl topical BID lactulose 10 gram/15 mL Solution 15 ml PO BID cefuroxime axetil 250 mg tablet 250 mg PO BID 3 Days Qty: 6 0RF spironolactone [Aldactone] 25 mg tablet 25 mg PO BID 30 Days Qty: 60 0RF Hold Instructions: Resume on 02/28/23. montelukast 10 mg tablet 10 mg PO BEDTIME acarbose 50 mg tablet 50 mg PO TID
--- NOTE | 2023-04-26 13:27 | ECG_ITS ---
Test Reason : ARRYTHMIA Blood Pressure : / mmHG Vent. Rate : 122 BPM Atrial Rate : 122 BPM P-R Int : 142 ms QRS Dur : 088 ms QT Int : 342 ms P-R-T Axes : 036 -08 153 degrees QTc Int : 487 ms Sinus tachycardia Nonspecific T wave abnormality Cannot rule out Anterior infarct (cited on or before 22-FEB-2023) Abnormal ECG When compared with ECG of 14-APR-2023 18:53, Questionable change in initial forces of Anterior leads Referred By: Ralph Andrade Electronically Signed By:JAVIER PARMAR
[2023-04-26 13:28] VITALS: BP 151/83; PULSE 122; RESP 20; TEMP 36.7; O2SAT 99; BMI 34.3
[2023-04-26 13:49] LABS: MANUAL DIFF FLAG NO
[2023-04-26 13:50] LABS: Basophils Percent Auto 0.1 % (0-2); Eosinophils Absolute Auto 0.1 X10*3/uL (0.0-0.4); Hematocrit 30.1 % (37.0-47.0); Hemoglobin 10.1 g/dl (12.0-16.0); Imm Gran Abs Auto 0.04 X10*3/uL (0.00-0.03); Imm Gran Pct Auto 0.6 % (0.0-0.4); Lymphocytes Absolute Auto 0.8 X10*3/uL (1.2-4.9); Lymphocytes Percent Auto 11.8 % (20-40); Mean Corpuscular HGB Conc 33.6 g/dl (31.0-35.0); Mean Corpuscular Hemoglobin 35.2 pg (27.0-33.0); Mean Corpuscular Volume 104.9 fL (80.0-98.0); Mean Platelet Volume 10.1 fL (9.4-12.3); Monocytes Absolute Auto 0.6 X10*3/uL (0.1-1.2); Monocytes Percent Auto 9.3 % (2-11); Neutrophils Absolute Auto 5.3 x10*3/uL (2.0-8.3); Neutrophils Percent Auto 77.2 % (45-73); Red Blood Count 2.87 X10*6/uL (4.20-5.50); Red Cell Distribution Width 16.3 % (11.0-16.0); White Blood Count 6.9 X10*3/uL (4.8-10.8)
[2023-04-26 13:51] LABS: Platelet Count 88 X10*3/uL (160-400)
[2023-04-26 14:11] LABS: Alanine Aminotransferase 42 U/L (0-31); Albumin Level 1.9 g/dL (3.5-5.0); Alkaline Phosphatase 145 U/L (39-117); Anion Gap 22 (12-20); Aspartate Amino Transferase 71 U/L (5-31); Bilirubin Total 6.6 mg/dL (0.0-1.0); Blood Urea Nitrogen 17 mg/dL (9-16); Calcium 10.3 mg/dL (8.4-10.2); Carbon Dioxide 15 mmol/L (22-29); Chloride 96 mmol/L (96-108); Creatinine Clr Calc Pharmacy 61.7; Estimated Glomerular Filt Rate > 60; Glucose Random 145 mg/dL (60-115); Magnesium 1.6 mg/dL (1.6-2.6); Potassium 5.1 mmol/L (3.3-5.1); Sodium 128 mmol/L (135-145)
[2023-04-26 14:16] LABS: Troponin-I High Sensitivity 22.7 ng/L (<3.5-17.0)
[2023-04-26 20:15] VITALS: BP 125/55; PULSE 118; RESP 18; TEMP 36; O2SAT 99
[2023-04-26 21:41] VITALS: BP 110/49; PULSE 111; RESP 17; TEMP 36.5; O2SAT 100
[2023-04-26 22:10] LABS: Troponin-I High Sensitivity 21.6 ng/L (<3.5-17.0)
[2023-04-26 22:38] LABS: D Dimer High Sensitivity 5251 NG/ML
[2023-04-26 22:41] LABS: Anion Gap 18 (12-20); Blood Urea Nitrogen 18 mg/dL (9-16); Calcium 10.1 mg/dL (8.4-10.2); Carbon Dioxide 17 mmol/L (22-29); Chloride 96 mmol/L (96-108); Creatinine Clr Calc Pharmacy 67.9; Estimated Glomerular Filt Rate > 60; Glucose Random 167 mg/dL (60-115); Potassium 5.2 mmol/L (3.3-5.1); Sodium 126 mmol/L (135-145)
[2023-04-26 23:08] LABS: INTERNATIONAL NORM RATIO 2.2 (0.9-1.1); Prothrombin Time 27.3 SEC (11.1-13.3)
--- NOTE | 2023-04-26 23:33 | P.HPHOSP_ITS ---
History of Present Illness Date of Service: 04/26/23 Chief Complaint: SOB, anasarca This is a 68-year-old female history of liver cirrhosis, Hep C, hypothyroidism, Parkinson's disease, mixed hyperlipidemia, morbid obesity. Recent hospitalization here from 04/14 to 04/16 for treatment of UTI associated with encephalopathy. She presents here today accompanied by her daughter who cares for her who relates that has been having increasing swelling in the legs and abdomen and is having difficulty breathing. Her breathing seem comfortable and oxygen saturatrion is 100% on room air. She has sinus tachycardia of around 110 not unsual for her, CXR show no PNA or CHF, DDimer level is over 5000 and so ED has given her a dose of lovenox and requesting a VQ scan to be done at later tie. Sodium of 126 and K of 5.2. It is of note that she went to [facility] yesterday for the same thing and left AMA after waiting in ED for 10 hours. Review of Systems 2 Review of Systems: Gen: no fever Resp: +sob, no cough CV: no chest, + BERNARD, + leg edema, palpitation GI: No n/v, no abd pain Neuro: No confusion Yes all other systems are reviewed and are negative [facility] Medical History Cirrhosis Thrombocytopenia Cirrhosis Hx of hepatitis C Anemia Hyperthyroidism Hypertension Parkinson disease Diabetes Severe sepsis Family History Daughter Diabetes Daughter Diabetes Brother HTN (hypertension) Surgical History History of tubal ligation History of tonsillectomy History of cholecystectomy History of esophagogastroduodenoscopy (EGD) H/O colonoscopy Hx of lithotripsy History of cystoscopy Social History Household Members: Unknown / Unable to assess Household Members Other:: 6 Housing: Unknown / Unable to assess Are you a primary manager managed care to a significant other at home: No Do you presently have visiting nurse or other home services: Yes Unable to assess alcohol history related to: Unable to respond Alcohol intake: never Patient Tobacco Use Status: Tobacco use Unknown Second Hand Smoke Exposure: No Advance Directives: Yes Advance Directives on File: Yes Advance Directives Date on File: 04/25/20 service: No Current occupational status: disabled Meds Allergies Allergy/AdvReac Type Severity Reaction Status Date / Time aspirin [ASPIRIN] Allergy Intermediate HIVES Verified 04/26/23 13:28 Penicillins [PCN] Allergy Intermediate HIVES Verified 04/26/23 13:28 Home Medications Medication Instructions Recorded Confirmed Last Taken Type atorvastatin 20 mg tablet 20 mg PO BEDTIME 04/21/20 04/15/23 04/13/23 History carbidopa 25 mg-levodopa 100 mg 1 tab PO TID 04/21/20 04/15/23 04/14/23 History tablet levothyroxine 75 mcg tablet 75 mcg PO DAILY 04/21/20 04/15/23 04/14/23 History linagliptin 2.5 mg-metformin 1,000 1 tab PO DAILY 04/21/20 04/15/23 04/14/23 History mg tablet (Jentadueto) omeprazole 20 mg capsule,delayed 20 mg PO DAILY 04/21/20 04/15/23 04/14/23 History release calcium carbonate 500 mg-vitamin 1 tab PO QAM 11/09/21 04/15/23 04/14/23 History D3 10 mcg (400 unit) tablet (Oyster Shell Calcium-Vitamin D3) acarbose 50 mg tablet 50 mg PO TID 09/16/22 04/15/23 04/14/23 History montelukast 10 mg tablet 10 mg PO BEDTIME 09/16/22 04/15/23 04/13/23 History alendronate 70 mg tablet 70 mg PO QWEEK 04/15/23 04/15/23 Unknown History clotrimazole 1 % topical cream 1 appl topical BID 04/15/23 04/15/23 04/14/23 History gabapentin 300 mg capsule 300 mg PO TID 04/15/23 04/15/23 04/14/23 History lactulose 10 gram/15 mL oral 15 ml PO BID 04/15/23 04/15/23 04/14/23 History solution Physical Exam 2 Vital Signs and Narrative: Vital Signs: Last Vital Signs Temp 97.7 F 04/26/23 21:41 Pulse 111 H 04/26/23 21:41 Resp 17 04/26/23 21:41 BP 110/49 L 04/26/23 21:41 Pulse Ox 100 04/26/23 21:41 O2 Del Method Room Air 04/26/23 21:41 BMI result Body Mass Index 34.3 Const: Other: Constitutional: Alert, in no distress, overweight. Mental Status: Oriented to person, place and time. Eyes: Pupils are equal, round and reactive to light. Ear, Nose and Throat: Oropharynx clear, mucous membranes moist. Respiratory: Clear to auscultation. No wheezing, rales or rhonchi. Cardiovascular: S1 S2 regular. No murmurs, rubs or gallops. 3+ pitting edema Gastrointestinal: Abdomen soft, non-tender, non-distended. Normal bowel sounds.? Neurologic: Cranial nerves II-XII grossly intact. No focal neurological deficits. Moves all extremities spontaneously.? Skin: No rashes or lesions.? Musculoskeletal: No cyanosis or clubbing. Psychiatric: Normal mood and affect? Results Labs 04/26/23 13:45 04/27/23 00:16 Labs: Laboratory Results - last 24 hr 04/26/23 04/26/23 04/26/23 13:45 20:53 21:40 MCV 104.9 H MCH 35.2 H MCHC 33.6 RDW 16.3 H Plt Count 88 L D MPV 10.1 Immature Gran % (Auto) 0.6 H Neut % (Auto) 77.2 H Lymph % (Auto) 11.8 L Day % (Auto) 9.3 Eos % (Auto) 1.0 Baso % (Auto) 0.1 Lymph # (Auto) 0.8 L Day # (Auto) 0.6 Eos # (Auto) 0.1 Baso # (Auto) 0.0 Abs Immat Gran (auto) 0.04 H Absolute Neuts (auto) 5.3 Absolute Nucleated RBC 0.000 Nucleated RBC % (auto) 0.0 PT 27.3 H INR 2.2 H D-Dimer High Sensitivty 5251 Anion Gap 22 H 18 Estim Creat Clear Calc 61.7 67.9 Estimated GFR > 60 > 60 Random Glucose 145 H 167 H Calcium 10.3 H D 10.1 Magnesium 1.6 Total Bilirubin 6.6 H AST 71 H ALT 42 H Alkaline Phosphatase 145 H Total Protein 8.0 Albumin 1.9 L Imaging Radiologist's Impressions: Impressions Chest X-Ray 04/26/23 13:50 IMPRESSION: No pneumonia or CHF. Assessment and Plan (1) Dyspnea: Status: Acute (2) Edema: Status: Acute (3) Hyponatremia: Status: Acute Plan 68-year-old female history of liver cirrhosis, Hep C, hypothyroidism, Parkinson's disease, mixed hyperlipidemia, morbid obesity here with Shortness of breath likely from fluid overload--Give IV Lasix, and monitor, I don't think PE is of conern despite elevated DDimer level. PLatlets is low and INR is over 2 because of liver disease. ED provider gave 1 dose of therapeutic Levenox which I will not continue Elevated DDimer, likely related to cirrhosis HypOnatremia--due fluid overload, fluid restriction Thrombocytopenia, chronic due to cirrhosis, monitor Hyperkalemia--mild, repeat in the moring and if still high then give Lokelma Anasarca, US of abdomen to assess for ascietes and then possible paracentesisi Hypothyroidism continue Synthroid [id number] diabetes mellitus. follow POCs, SSI hold baseline oral meds DVT prophylaxis: low platlets, compression device full code admission for at least 2 midnights for management of hyponatremia, hyperkalemia, Time Spent With Patient Time: Total time managing care of this patient today ____ minutes. Quality Stroke Does the patient have a stroke diagnosis?: No VTE Prior VTE?: No VTE Risk Level:: Medical - moderate - high VTE Device Contraindication: Treatment Not Indicated VTE Drug Contraindication: N/A - Med Ordered
[2023-04-26 23:53] LABS: B Type Natriuretic Peptide 368 pg/mL (<100)
[2023-04-27] VITALS (7 sets, daily range): BP systolic 104–140; BP diastolic 43–67; PULSE 104–114; RESP 15–24; TEMP 36.1–36.6; O2SAT 93–98; BMI 39.3
--- OUTSIDE RECORDS SUMMARY | 2023-04-27 00:01 | XMS_ITS | Continuity of Care Document ---
Author Name Unknown Organization [facility] ter Address [address] [place] [id number]- Care Team Providers Care Assistant Signal Maintainer Name Role Phone Daniel Ng MD, Everett Primary Care Phys ician Encounter [facility] [place] Date(s): 04/25/23 - 04/25/[address] [address]- Discharge Disposition: A-D/C Walkout Attending Physician: Not on Staff, Attending MD Admitting Physician: Not on Staff, Admitting MD Referring Physician: Not on Staff, Referring MD Allergies, Adverse Reactions, Alerts Substance Reaction Severity Status ampicillin Active penicillin Active Results Radiology Reports * Exam Date Time Procedure Performing Provider Status 04/25/23 3:47 PM Chest 2 Views Frontal and Lat Maki Hernandez; Auth (Verified) Notes: (Chest 2 Views Frontal and Lat) Reason For Exam: Chest Pain;Other: RESULT: Chest 2 Views Frontal and Lat Chest 2 Views Frontal and Lat Hx of Present Illness: chest pain COMPARISON: None. FINDINGS: LINES AND TUBES: None. LUNGS AND PLEURA: Clear lungs. Normal pulmonary vascularity. No pleural effusion. No pneumothorax. HEART, MEDIASTINUM AND DARCY: Heart is normal in size. Normal mediastinal and hilar contour. BONES AND SOFT TISSUES: No acute abnormality. IMPRESSION: No acute abnormality. I have personally reviewed the images and I agree with this report. WSN: [id number] Ordering Physician: Sarah Resendiz Dictated By: Kenny Diehl MD Dictated Date/Time: 04/25/23 3:53 pm Reviewed By: Donte Black MD, V Signed By: Donte Black MD, V Signed Date/Time: 04/25/23 3:58 pm Transcribed By: LEXIE Transcribed Date/Time: 04/25/23 3:51 pm Vital Signs Most recent to oldest [Reference Range]: 1 2 Height 150 cm (04/25/23 3:18 PM) 150 cm (04/25/23 3:01 PM) Oxygen Saturation [94-100 %] 100 % (04/25/23 8:48 PM) 100 % (04/25/23 3:01 PM) Pulse Rate [55-90 bpm] 115 bpm *H* (04/25/23 8:48 PM) 120 bpm *H* (04/25/23 3:01 PM) Blood Pressure [90-138/55-84 mm Hg] 128/ 48mm Hg (04/25/23 8:48 PM) 137/34mm Hg (04/25/23 3:01 PM) Respiratory Rate [16-30 br/min] 18 br/mi n (04/25/23 3:01 PM) Temperature [96.8-100.4 DegF] 98.2 DegF (04/25/23 8:48 PM) 98.3 DegF (04/25/23 3:01 PM) Mode of Delivery (Oxygen) Room air (04/25/23 8:48 PM) Room air (04/25/23 3:01 PM) Blood pressure sites Arm, right (04/25/23 8:48 PM) Arm, left (04/25/23 3:01 PM) Temperature Route Oral (04/25/23 8:48 PM) Oral (04/25/23 3:01 PM) Dry Weight 68.5 kg (04/25/23 3:18 PM) 68.5 kg (04/25/23 3:01 PM) Dry Weight Obtained Via Patient/family s tated (04/25/23 3:01 PM) Patient Care team information Care Team Personnel Name: Everett Henning MD Position: S Outreach Member Role: PCP Address: Address: [address] [place] [id number]
[2023-04-27 00:38] LABS: Anion Gap 14 (12-20); Blood Urea Nitrogen 17 mg/dL (9-16); Calcium 10.5 mg/dL (8.4-10.2); Carbon Dioxide 22 mmol/L (22-29); Chloride 96 mmol/L (96-108); Creatinine Clr Calc Pharmacy 63.4; Estimated Glomerular Filt Rate > 60; Glucose Random 164 mg/dL (60-115); Potassium 5.1 mmol/L (3.3-5.1); Sodium 127 mmol/L (135-145)
[2023-04-27 01:11] LABS: Partial Thromboplastin Time 43.9 SEC (26.0-36.4)
[2023-04-27] MEDS: Enoxaparin Sodium 80 MG/0.8 ML SYRINGE SUBCUT (01:24)
[2023-04-27] MEDS: Furosemide 40 MG/4 ML VIAL IVPUSH ×2 (01:25→11:22)
--- NOTE | 2023-04-27 01:29 | PC.NURSE ---
medicated per sep, notified GERTRUDIS Nj.
[2023-04-27 06:00] LABS: Anion Gap 10 (12-20); Blood Urea Nitrogen 18 mg/dL (9-16); Calcium 9.9 mg/dL (8.4-10.2); Carbon Dioxide 25 mmol/L (22-29); Chloride 96 mmol/L (96-108); Creatinine Clr Calc Pharmacy 62.6; Estimated Glomerular Filt Rate > 60; Glucose Random 155 mg/dL (60-115); Potassium 4.4 mmol/L (3.3-5.1); Sodium 127 mmol/L (135-145)
[2023-04-27 06:03] LABS: INTERNATIONAL NORM RATIO 2.2 (0.9-1.1); Prothrombin Time 26.8 SEC (11.1-13.3)
--- NOTE | 2023-04-27 08:10 | PC.NURSE ---
Inpatient doctor at bedside for assessment with veterinary milk specialist.
--- NOTE | 2023-04-27 08:14 | PC.NURSE ---
Report to GERTRUDIS Vo. pt awaiting transport.
--- NOTE | 2023-04-27 08:36 | PHA.MEDREC ---
Pharmacy Consult ? Medication Reconciliation Pharmacy has completed the medication reconciliation. Patient had list with her. Igniter Capper used.
--- NOTE | 2023-04-27 10:32 | MHC.CM.PN ---
This CM met with pt at bedside, pt fatigued and mostly luxembourgish speaking, requested that this CM direct questions to daughter/HCP, Demetriaenrico. IMM verbally addressed with daughter/HCP via telephone. Copy to be mailed. Per daughter, pt lives at home with daughter, uses a walker for ambulation, and sometimes requires assistance with ADL's. Daughter reports VNA/PT/OT services at home, but is unsure which agency and will call back with this information. Pt was recently admitted with UTI, but dc paperwork notes home no services. PCP: Everett Ng MD HCP: Daughter Yakelin, copy on file Daughter able to transport home. CM will continue to follow.
[2023-04-27] MEDS: Spironolactone 25 MG TABLET PO ×2 (11:08→20:59)
[2023-04-27] MEDS: Levothyroxine Sodium 75 MCG TABLET PO (11:08)
[2023-04-27] MEDS: 0.9 % Sodium Chloride Flush 3 ML SYRINGE IVFLUSH ×2 (11:09→20:56)
[2023-04-27] MEDS: Carbidopa/Levodopa 25/100 TABLET 1 TAB PO ×3 (11:23→20:55)
--- NOTE | 2023-04-27 13:50 | P.PNIM_ITS ---
Subjective Subjective Date of Service: 04/27/23 Interval History: Seen and evaluated this morning Feels comfortable Still reporting swelling in LE , breathing better No fever or chills Na remains low overnight Review of Systems Review of Systems: Yes all other systems are reviewed and are negative Physical Exam 2 Vital Signs: Vital Signs: Last Vital Signs Temp 97.5 F 04/27/23 11:41 Pulse 108 H 04/27/23 11:41 Resp 20 04/27/23 11:41 BP 118/58 L 04/27/23 11:41 Pulse Ox 98 04/27/23 11:41 O2 Del Method Room Air 04/27/23 11:41 BMI result Body Mass Index 39.3 Const: Other: Constitutional : Awake, interactive, not in distress Neck : Normal inspection, Supple Cardiovascular : RRR, no JVP, +2 bilateral lower extremity edema Respiratory : good bilateral air entry, no crackles, wheezes or rhonchi Gastrointestinal: soft, lax, Normal bowel sounds, Non tender Skin : Warm, Dry Neurological : Alert & oriented x3, No focal deficit Objective Data Active Medications Acetaminophen (Acetaminophen 325 Mg Tablet) 650 mg PO Q6H PRN PRN Reason: Pain, Mild (Pain Scale 1-3) Atorvastatin Calcium (Atorvastatin Calcium 20 Mg Tablet) 20 mg PO BEDTIME [facility] Carbidopa/Levodopa (Carbidopa/Levodopa 25/100 Tablet) 1 tab PO TID [facility] Last Admin: 04/27/23 11:23 Dose: 1 tab Documented By: SINGH Furosemide (Furosemide 40 Mg/4 Ml Vial) 40 mg IVPUSH DAILY [facility]; Protocol Last Admin: 04/27/23 11:22 Dose: 40 mg Documented By: SINGH Gabapentin (Gabapentin 300 Mg Capsule) 300 mg PO TID [facility] Lactulose (Lactulose 20 Gm/30 Ml Solution) 10 gm PO BID [facility] Levothyroxine Sodium (Levothyroxine Sodium 75 Mcg Tablet) 75 mcg PO DAILY@0600 [facility] Last Admin: 04/27/23 11:08 Dose: 75 mcg Documented By: SINGH Magnesium Hydroxide (Milk Of Magnesia 30 Ml Oral.Susp) 30 ml PO DAILY PRN PRN Reason: Constipation Montelukast Sodium (Montelukast Sodium 10 Mg Tablet) 10 mg PO BEDTIME [facility] Non-Formulary Medication (Acarbose) 50 mg PO TID [facility] Omeprazole (Omeprazole 20 Mg Capsule.Dr) 20 mg PO DAILY@0630 [facility] Senna (Sennosides 8.6 Mg Tablet) 17.2 mg PO BEDTIME PRN PRN Reason: Constipation Sodium Chloride (0.9 % Sodium Chloride Flush 3 Ml Syringe) 3 ml IVFLUSH QSHIFT [facility] Last Admin: 04/27/23 11:09 Dose: 3 ml Documented By: SINGH Spironolactone (Spironolactone 25 Mg Tablet) 25 mg PO BID [facility]; Protocol Last Admin: 04/27/23 11:08 Dose: 25 mg Documented By: SINGH Labs 04/26/23 13:45 04/27/23 05:27 Labs: Laboratory Results - last 24 hr 04/26/23 04/26/23 04/26/23 13:45 20:53 21:40 MCV 104.9 H MCH 35.2 H MCHC 33.6 RDW 16.3 H Plt Count 88 L D MPV 10.1 Immature Gran % (Auto) 0.6 H Neut % (Auto) 77.2 H Lymph % (Auto) 11.8 L [place] % (Auto) 9.3 Eos % (Auto) 1.0 Baso % (Auto) 0.1 Lymph # (Auto) 0.8 L [place] # (Auto) 0.6 Eos # (Auto) 0.1 Baso # (Auto) 0.0 Abs Immat Gran (auto) 0.04 H Absolute Neuts (auto) 5.3 Absolute Nucleated RBC 0.000 Nucleated RBC % (auto) 0.0 Hold Purple Top PT 27.3 H INR 2.2 H APTT D-Dimer High Sensitivty 5251 Hold Blue Top Anion Gap 22 H 18 Estim Creat Clear Calc 61.7 67.9 Estimated GFR > 60 > 60 Random Glucose 145 H 167 H Calcium 10.3 H D 10.1 Magnesium 1.6 Total Bilirubin 6.6 H AST 71 H ALT 42 H Alkaline Phosphatase 145 H B-Natriuretic Peptide Total Protein 8.0 Albumin 1.9 L 04/26/23 04/27/23 04/27/23 23:11 00:16 05:27 MCV MCH MCHC RDW Plt Count MPV Immature Gran % (Auto) Neut % (Auto) Lymph % (Auto) [place] % (Auto) Eos % (Auto) Baso % (Auto) Lymph # (Auto) [place] # (Auto) Eos # (Auto) Baso # (Auto) Abs Immat Gran (auto) Absolute Neuts (auto) Absolute Nucleated RBC Nucleated RBC % (auto) Hold Purple Top SEE NOTE PT 26.8 H INR 2.2 H APTT 43.9 H D-Dimer High Sensitivty Hold Blue Top SEE NOTE Anion Gap 14 10 L Estim Creat Clear Calc 63.4 62.6 Estimated GFR > 60 > 60 Random Glucose 164 H 155 H Calcium 10.5 H 9.9 Magnesium Total Bilirubin AST ALT Alkaline Phosphatase B-Natriuretic Peptide 368 H Total Protein Albumin Assessment and Plan (1) Hyponatremia: Status: Acute (2) Dyspnea: Status: Acute (3) Edema: Status: Acute Plan 68-year-old female history of liver cirrhosis, Hep C, hypothyroidism, Parkinson's disease, mixed hyperlipidemia, morbid obesity here with Fluid overload 2/2 decompensated Liver cirrhosis Low Albumin; to give replacement Continue IV Lasix Abd US; no significant ascites restart home Spironolactone monitor fluid status Dyspnea likely from fluid overload, improving. Elevated DDimer Likely related to cirrhosis acute on chronic HypOnatremia due fluid overload, fluid restriction and monitor BMP Thrombocytopenia chronic due to cirrhosis, monitor Hyperkalemia resolved Anasarca, US of abdomen to assess for ascietes and then possible paracentesisi Hypothyroidism continue Synthroid [id number] diabetes mellitus. follow POCs, SSI hold baseline oral meds DVT prophylaxis: low platlets, compression device full code admission for overnight for management of hyponatremia, hyperkalemia, FLuid overload Time Spent With Patient Time: Total time managing care of this patient today ____ minutes. Quality Stroke Does the patient have a stroke diagnosis?: No VTE Prior VTE?: No VTE Risk Level:: Medical - moderate - high VTE Device Contraindication: Treatment Not Indicated VTE Drug Contraindication: N/A - Med Ordered
[2023-04-27 15:53] LABS: Anion Gap 13 (12-20); Blood Urea Nitrogen 16 mg/dL (9-16); Calcium 9.5 mg/dL (8.4-10.2); Carbon Dioxide 22 mmol/L (22-29); Chloride 96 mmol/L (96-108); Creatinine Clr Calc Pharmacy 70.3; Estimated Glomerular Filt Rate > 60; Glucose Random 195 mg/dL (60-115); Potassium 4.5 mmol/L (3.3-5.1); Sodium 126 mmol/L (135-145)
[2023-04-27] MEDS: Gabapentin 300 MG CAPSULE PO ×2 (15:58→20:55)
[2023-04-27] MEDS: Lactulose 20 GM/30 ML SOLUTION 10 GM PO (20:55)
[2023-04-27] MEDS: Atorvastatin Calcium 20 MG TABLET PO (20:55)
[2023-04-27] MEDS: Montelukast Sodium 10 MG TABLET PO (20:55)
[2023-04-28 04:00] VITALS: BP 107/56; PULSE 88; RESP 16; TEMP 36.2; O2SAT 98
[2023-04-28] MEDS: Levothyroxine Sodium 75 MCG TABLET PO (06:04)
[2023-04-28 07:39] VITALS: BP 112/57; PULSE 92; RESP 18; TEMP 36.1; O2SAT 96
[2023-04-28 07:44] LABS: Glucose, Whole Blood 117 mg/dL (60-115)
[2023-04-28 07:51] LABS: Anion Gap 12 (12-20); Blood Urea Nitrogen 13 mg/dL (9-16); Carbon Dioxide 27 mmol/L (22-29); Chloride 98 mmol/L (96-108); Creatinine Clr Calc Pharmacy 77.7; Estimated Glomerular Filt Rate > 60; Glucose Random 120 mg/dL (60-115); Sodium 133 mmol/L (135-145)
[2023-04-28 07:55] LABS: B Type Natriuretic Peptide 247 pg/mL (<100)
[2023-04-28] MEDS: Omeprazole 20 MG CAPSULE.DR PO (08:05)
[2023-04-28] MEDS: Gabapentin 300 MG CAPSULE PO (08:05)
[2023-04-28] MEDS: Carbidopa/Levodopa 25/100 TABLET 1 TAB PO (08:05)
[2023-04-28] MEDS: Lactulose 20 GM/30 ML SOLUTION 10 GM PO (08:06)
[2023-04-28] MEDS: Spironolactone 25 MG TABLET PO ×2 (08:06→09:37)
[2023-04-28] MEDS: 0.9 % Sodium Chloride Flush 3 ML SYRINGE IVFLUSH ×3 (08:07→20:26)
[2023-04-28] MEDS: Furosemide 40 MG/4 ML VIAL IVPUSH (09:37)
[2023-04-28 11:09] VITALS: BP 121/58; PULSE 99; RESP 18; TEMP 36.4; O2SAT 97
[2023-04-28 15:12] VITALS: BP 118/56; PULSE 100; RESP 20; TEMP 36.2; O2SAT 98
--- NOTE | 2023-04-28 15:51 | HO.PM.IMPN ---
Subjective Subjective Date of Service: 04/28/23 Interval History: Seen and evaluated this morning Feels comfortable Constipated swelling in LE , breathing better No fever or chills Na improving Review of Systems Review of Systems: Yes all other systems are reviewed and are negative Physical Exam Vital Signs: Vital Signs: Last Vital Signs Temp 97.1 F 04/28/23 15:12 Pulse 100 04/28/23 15:12 Resp 20 04/28/23 15:12 BP 118/56 L 04/28/23 15:12 Pulse Ox 98 04/28/23 15:12 O2 Del Method Room Air 04/28/23 15:12 BMI result Body Mass Index 39.3 Const: Other: Constitutional : Awake, interactive, not in distress Neck : Normal inspection, Supple Cardiovascular : RRR, no JVP, +2 bilateral lower extremity edema Respiratory : good bilateral air entry, no crackles, wheezes or rhonchi Gastrointestinal: soft, lax, Normal bowel sounds, Non tender Skin : Warm, Dry Neurological : Alert & oriented x3, No focal deficit Objective Data Active Medications Acetaminophen (Acetaminophen 325 Mg Tablet) 650 mg PO Q6H PRN PRN Reason: Pain, Mild (Pain Scale 1-3) Atorvastatin Calcium (Atorvastatin Calcium 20 Mg Tablet) 20 mg PO BEDTIME [facility] Last Admin: 04/27/23 20:55 Dose: 20 mg Documented By: TEVIN Carbidopa/Levodopa (Carbidopa/Levodopa 25/100 Tablet) 1 tab PO TID [facility] Last Admin: 04/28/23 08:05 Dose: 1 tab Documented By: JENNIFER Furosemide (Furosemide 40 Mg/4 Ml Vial) 40 mg IVPUSH DAILY [facility]; Protocol Last Admin: 04/28/23 09:37 Dose: 40 mg Documented By: JENNIFER Gabapentin (Gabapentin 300 Mg Capsule) 300 mg PO TID [facility] Last Admin: 04/28/23 08:05 Dose: 300 mg Documented By: JENNIFER Lactulose (Lactulose 20 Gm/30 Ml Solution) 10 gm PO BID [facility] Last Admin: 04/28/23 08:06 Dose: 10 gm Documented By: JENNIFER Lactulose (Lactulose 20 Gm/30 Ml Solution) 20 gm PO BID [facility] Last Admin: 04/28/23 11:42 Dose: 20 gm Documented By: JENNIFER Levothyroxine Sodium (Levothyroxine Sodium 75 Mcg Tablet) 75 mcg PO DAILY@0600 [facility] Last Admin: 04/28/23 06:04 Dose: 75 mcg Documented By: CHANG Magnesium Hydroxide (Milk Of Magnesia 30 Ml Oral.Susp) 30 ml PO DAILY PRN PRN Reason: Constipation Montelukast Sodium (Montelukast Sodium 10 Mg Tablet) 10 mg PO BEDTIME [facility] Last Admin: 04/27/23 20:55 Dose: 10 mg Documented By: TEVIN Non-Formulary Medication (Acarbose) 50 mg PO TID [facility] Omeprazole (Omeprazole 20 Mg Capsule.Dr) 20 mg PO DAILY@0630 [facility] Last Admin: 04/28/23 08:05 Dose: 20 mg Documented By: JENNIFER Senna (Sennosides 8.6 Mg Tablet) 17.2 mg PO BEDTIME PRN PRN Reason: Constipation Sodium Chloride (0.9 % Sodium Chloride Flush 3 Ml Syringe) 3 ml IVFLUSH QSHIFT [facility] Last Admin: 04/28/23 08:07 Dose: 3 ml Documented By: JENNIFER Spironolactone (Spironolactone 25 Mg Tablet) 25 mg PO BID [facility]; Protocol Last Admin: 04/28/23 08:06 Dose: 25 mg Documented By: JENNIFER Labs 04/26/23 13:45 04/28/23 07:02 Labs: Laboratory Results - last 24 hr 04/27/23 04/28/23 04/28/23 14:32 07:02 07:38 Anion Gap 13 12 Estim Creat Clear Calc 70.3 77.7 Estimated GFR > 60 > 60 POC Glucose 117 H Random Glucose 195 H 120 H Osmolality Calcium 9.5 9.0 B-Natriuretic Peptide 247 H Urine Osmolality Ur Random Sodium 04/28/23 04/28/23 04/28/23 08:36 11:00 11:08 Anion Gap Estim Creat Clear Calc Estimated GFR POC Glucose 182 H Random Glucose Osmolality 284 Calcium B-Natriuretic Peptide Urine Osmolality 183 L Ur Random Sodium 27.0 Assessment and Plan (1) Hyponatremia: Status: Acute (2) Dyspnea: Status: Acute (3) Edema: Status: Acute Plan 68-year-old female history of liver cirrhosis, Hep C, hypothyroidism, Parkinson's disease, mixed hyperlipidemia, morbid obesity here with acute on chronic HypOnatremia due fluid overload, improving fluid restriction and monitor BMP Fluid overload 2/2 decompensated Liver cirrhosis Low Albumin; to give replacement Continue IV Lasix Abd US; no significant ascites Spironolactone monitor fluid status Dyspnea likely from fluid overload, improving Elevated D-Dimer Likely related to cirrhosis Thrombocytopenia chronic due to cirrhosis, monitor Hyperkalemia resolved Anasarca, US of abdomen to assess for ascietes and then possible paracentesisi Hypothyroidism continue Synthroid [id number] diabetes mellitus. follow POCs, SSI hold baseline oral meds DVT prophylaxis: low platlets, compression device full code admission for overnight for management of hyponatremia, hyperkalemia, FLuid overload Time Spent With Patient Time: Total time managing care of this patient today ____ minutes. Quality Stroke Does the patient have a stroke diagnosis?: No VTE Prior VTE?: No VTE Risk Level:: Medical - moderate - high VTE Device Contraindication: Treatment Not Indicated VTE Drug Contraindication: N/A - Med Ordered
[2023-04-28 19:27] VITALS: BP 113/57; PULSE 102; RESP 20; TEMP 36.2; O2SAT 98
[2023-04-28 23:13] VITALS: BP 111/58; PULSE 97; RESP 18; TEMP 36.9; O2SAT 98
[2023-04-29] VITALS (7 sets, daily range): BP systolic 114–130; BP diastolic 57–60; PULSE 84–96; RESP 17–18; TEMP 36.1–37; O2SAT 96–98
[2023-04-29 07:48] LABS: Anion Gap 10 (12-20); Blood Urea Nitrogen 9 mg/dL (9-16); Calcium 8.4 mg/dL (8.4-10.2); Carbon Dioxide 29 mmol/L (22-29); Chloride 101 mmol/L (96-108); Creatinine Clr Calc Pharmacy 75.5; Estimated Glomerular Filt Rate > 60; Glucose Random 121 mg/dL (60-115); Sodium 136 mmol/L (135-145)
[2023-04-29] MEDS: Furosemide 40 MG/4 ML VIAL IVPUSH (09:52)
--- NOTE | 2023-04-29 14:05 | HO.PM.IMPN ---
Subjective Subjective Date of Service: 04/29/23 Interval History: Seen and evaluated this morning Feels comfortable Moving bowels Swelling in LE decreasing , breathing better No fever or chills Na improving Review of Systems Review of Systems: Yes all other systems are reviewed and are negative Physical Exam Vital Signs: Vital Signs: Last Vital Signs Temp 97.0 F 04/29/23 11:16 Pulse 95 04/29/23 11:16 Resp 17 04/29/23 11:16 BP 123/57 L 04/29/23 11:16 Pulse Ox 96 04/29/23 11:16 O2 Del Method Room Air 04/29/23 11:16 BMI result Body Mass Index 39.3 Const: Other: Constitutional : Awake, interactive, not in distress Neck : Normal inspection, Supple Cardiovascular : RRR, no JVP, +1 bilateral lower extremity edema Respiratory : good bilateral air entry, no crackles, wheezes or rhonchi Gastrointestinal: soft, lax, Normal bowel sounds, Non tender Skin : Warm, Dry Neurological : Alert & oriented x3, No focal deficit Objective Data Active Medications Acetaminophen (Acetaminophen 325 Mg Tablet) 650 mg PO Q6H PRN PRN Reason: Pain, Mild (Pain Scale 1-3) Atorvastatin Calcium (Atorvastatin Calcium 20 Mg Tablet) 20 mg PO BEDTIME [facility] Last Admin: 04/28/23 20:24 Dose: 20 mg Documented By: HAYDEN Carbidopa/Levodopa (Carbidopa/Levodopa 25/100 Tablet) 1 tab PO TID [facility] Last Admin: 04/29/23 09:52 Dose: 1 tab Documented By: FERMÍN Furosemide (Furosemide 40 Mg/4 Ml Vial) 40 mg IVPUSH BID@0900,1800 [facility]; Protocol Gabapentin (Gabapentin 300 Mg Capsule) 300 mg PO TID [facility] Last Admin: 04/29/23 09:53 Dose: 300 mg Documented By: FERMÍN Lactulose (Lactulose 20 Gm/30 Ml Solution) 10 gm PO BID [facility] Last Admin: 04/29/23 09:55 Dose: 10 gm Documented By: FERMÍN Lactulose (Lactulose 20 Gm/30 Ml Solution) 20 gm PO BID [facility] Last Admin: 04/29/23 09:54 Dose: 20 gm Documented By: FERMÍN Levothyroxine Sodium (Levothyroxine Sodium 75 Mcg Tablet) 75 mcg PO DAILY@0600 [facility] Last Admin: 04/29/23 05:29 Dose: 75 mcg Documented By: HAYDEN Magnesium Hydroxide (Milk Of Magnesia 30 Ml Oral.Susp) 30 ml PO DAILY PRN PRN Reason: Constipation Montelukast Sodium (Montelukast Sodium 10 Mg Tablet) 10 mg PO BEDTIME [facility] Last Admin: 04/28/23 20:25 Dose: 10 mg Documented By: HAYDEN Non-Formulary Medication (Acarbose) 50 mg PO TID [facility] Omeprazole (Omeprazole 20 Mg Capsule.Dr) 20 mg PO DAILY@0630 [facility] Last Admin: 04/29/23 05:29 Dose: 20 mg Documented By: HAYDEN Senna (Sennosides 8.6 Mg Tablet) 17.2 mg PO BEDTIME PRN PRN Reason: Constipation Sodium Chloride (0.9 % Sodium Chloride Flush 3 Ml Syringe) 3 ml IVFLUSH QSHIFT [facility] Last Admin: 04/29/23 09:52 Dose: 3 ml Documented By: FERMÍN Spironolactone (Spironolactone 25 Mg Tablet) 25 mg PO BID [facility]; Protocol Last Admin: 04/29/23 09:54 Dose: 25 mg Documented By: FERMÍN Labs 04/26/23 13:45 04/29/23 07:07 Labs: Laboratory Results - last 24 hr 04/28/23 04/28/23 04/29/23 16:03 20:18 07:07 Hold Purple Top SEE NOTE Anion Gap 10 L Estim Creat Clear Calc 75.5 Estimated GFR > 60 POC Glucose 218 H 152 H Random Glucose 121 H Calcium 8.4 D 04/29/23 04/29/23 07:37 11:18 Hold Purple Top Anion Gap Estim Creat Clear Calc Estimated GFR POC Glucose 113 145 H Random Glucose Calcium Assessment and Plan (1) Hyponatremia: Status: Acute (2) Dyspnea: Status: Acute (3) Edema: Status: Acute (4) Lower extremity edema: Status: Acute Plan 68-year-old female history of liver cirrhosis, Hep C, hypothyroidism, Parkinson's disease, mixed hyperlipidemia, morbid obesity here with acute on chronic HypOnatremia due fluid overload, improving fluid restriction and monitor BMP Fluid overload 2/2 decompensated Liver cirrhosis Low Albumin; to give replacement Continue IV Lasix Abd US; no significant ascites bid Spironolactone monitor fluid status Lt heel pain check XR PHysical deconditioning PT rec STR placement Dyspnea likely from fluid overload, improving Elevated D-Dimer Likely related to cirrhosis Thrombocytopenia chronic due to cirrhosis, monitor Hyperkalemia resolved Anasarca, US of abdomen to assess for ascietes and then possible paracentesisi Hypothyroidism continue Synthroid [id number] diabetes mellitus. follow POCs, SSI hold baseline oral meds DVT prophylaxis: low platlets, compression device full code admission for overnight for management of FLuid overload pending safe discharge plan Time Spent With Patient Time: Total time managing care of this patient today ____ minutes. Quality Stroke Does the patient have a stroke diagnosis?: No VTE Prior VTE?: No VTE Risk Level:: Medical - moderate - high VTE Device Contraindication: Treatment Not Indicated VTE Drug Contraindication: N/A - Med Ordered
--- NOTE | 2023-04-29 15:50 | MHC.CM.PN ---
PT is recommending STR. This CM called pts daughter/HCP Yakelin to discuss and [facility]. [facility] able to offer a bed and requesting D/C tomorrow at 12pm. BLS booked for 04/30 at 12pm.
--- NOTE | 2023-04-29 16:43 | PC.NURSE ---
Assumed care at 07:oo. Patient alert and oriented x4, Scottish speaking, communicated with in Scottish and used interpretter. patient with scleritic icterus, MD notified. Patient reported pain to left ankle, unclear history of possible injury. Left ankle is more swollen than right, but has +4 pitting edema to BLE and ankles. Good CMS and +PP to feet. MD notified and new order for xray left ankle. Patient declined pain medication but accepted ice packs to left ankle. Breathing easy on room air, Lasix IV with 700 ccs urine output via purewick and some incontinence
[2023-04-30 03:27] VITALS: BP 109/55; PULSE 90; RESP 17; TEMP 36.7; O2SAT 97
[2023-04-30 07:20] VITALS: BP 107/53; PULSE 90; RESP 18; TEMP 36.1; O2SAT 97
--- NOTE | 2023-04-30 10:16 | PM.DS ---
DS: Providers Provider Date of Service: 04/30/23 Date of admission: 04/26/23 23:50 Primary care physician: Everett Ng MD DS: Diagnosis Discharge Diagnosis (1) Hyponatremia: Status: Acute (2) Dyspnea: Status: Acute (3) Edema: Status: Acute (4) Lower extremity edema: Status: Acute (5) Decompensated hepatic cirrhosis: Status: Acute DS: Summary Hospital Course Hospital Course: Admission note HPI This is a 68-year-old female history of liver cirrhosis, Hep C, hypothyroidism, Parkinson's disease, mixed hyperlipidemia, morbid obesity. Recent hospitalization here from 04/14 to 04/16 for treatment of UTI associated with encephalopathy. She presents here today accompanied by her daughter who cares for her who relates that has been having increasing swelling in the legs and abdomen and is having difficulty breathing. Her breathing seem comfortable and oxygen saturatrion is 100% on room air. She has sinus tachycardia of around 110 not unsual for her, CXR show no PNA or CHF, DDimer level is over 5000 and so ED has given her a dose of lovenox and requesting a VQ scan to be done at later tie. Sodium of 126 and K of 5.2. It is of note that she went to [facility] yesterday for the same thing and left AMA after waiting in ED for 10 hours. Hospital course # acute on chronic HypOnatremia due fluid overload, improved back to normal level with fluid restriction and diuresis. To repeat blood work as outpatient. # Fluid overload 2/2 decompensated Liver cirrhosis Given IV Albumen, started on high protein diet and treated with IV Lasix. Abd US showed no significant ascites. Kept on bid 25 mg of Spironolactone. The dose of Lactulose increased to get her bowels moving once a day. # Lt heel pain XR showed Plantar calcaneal spur. for physical therapy. Fluids restriction to 1.5L daily at max High-protein diet Start Lasix 40 mg daily Continue Spironolactone 25 mg twice daily Increase Lactulose dose to 20 mg twice daily with goal of 1-2 bowel movements daily. Time Spent with Patient Time attestation: Total time managing care of this patient today ____ minutes. Discharge coordination time: Greater than 30 minutes Quality: Safe Use of Opioids Does Pt have an Active Cancer Diagnosis on the Problem List?: No Quality: Stroke Does the patient have a stroke diagnosis?: No Physical Exam Vital Signs: Vital Signs: Last Vital Signs Temp 96.9 F 04/30/23 07:20 Pulse 90 04/30/23 07:20 Resp 18 04/30/23 07:20 BP 107/53 L 04/30/23 07:20 Pulse Ox 97 04/30/23 07:20 O2 Del Method Room Air 04/30/23 07:20 BMI result Body Mass Index 39.3 Const: Other: Constitutional : Awake, interactive, not in distress Neck : Normal inspection, Supple Cardiovascular : RRR, no JVP, trace bilateral lower extremity edema Respiratory : good bilateral air entry, no crackles, wheezes or rhonchi Gastrointestinal: soft, lax, Normal bowel sounds, Non tender Skin : Warm, Dry Neurological : Alert & oriented x3, No focal deficit DS: Data Data Completed and Pending Labs on day of discharge: Laboratory Results - last 24 hr 04/29/23 04/29/23 04/29/23 11:18 16:28 19:17 POC Glucose 145 H 166 H 234 H 04/30/23 07:19 POC Glucose 147 H Imaging Chest x-ray: Radiologist's impression: ITS Impressions Chest X-Ray 04/26/23 13:50 IMPRESSION: No pneumonia or CHF. Abdomen Ultrasound 04/27/23 08:23 IMPRESSION: Trace ascites in the left lower quadrant. No significant ascites. Foot X-Ray 04/29/23 15:16 IMPRESSION: Diffuse osteopenia and soft tissue swelling. Plantar calcaneal spur. Discharge Plan Discharge Anticipated Discharge Date/Time: 04/30/23 10:08 Patient Disposition: Xfer SNF Discharge Diagnosis: Decompensated liver cirrhosis with fluid overload [facility] Everett Henning MD [Primary Care Provider] - 1 Week Discharge Medications: New furosemide 40 mg tablet 40 mg PO QAM Qty: 30 0RF lactulose 20 gram/30 mL Solution 20 g PO BID 30 Days Qty: 1800 0RF Continued atorvastatin 20 mg tablet 20 mg PO BEDTIME levothyroxine 75 mcg tablet 75 mcg PO DAILY omeprazole 20 mg capsule,delayed release(DR/EC) 20 mg PO DAILY carbidopa-levodopa 25-100 mg tablet 1 tab PO TID Jentadueto 2.5-1,000 mg tablet 1 tab PO DAILY calcium carbonate-vitamin D3 [Oyster Shell Calcium-Vit D3] 500 mg-10 mcg (400 unit) tablet 1 tab PO QAM gabapentin 300 mg capsule 300 mg PO TID alendronate 70 mg tablet 70 mg PO QWEEK spironolactone [Aldactone] 25 mg tablet 25 mg PO BID 30 Days Qty: 60 0RF Hold Instructions: Resume on 02/28/23. montelukast 10 mg tablet 10 mg PO BEDTIME acarbose 50 mg tablet 50 mg PO TID Discontinued lactulose 10 gram/15 mL Solution 15 ml PO BID Discharge Orders: Discharge Order (Routine); Ordered 04/30/23 Ordered By: Andrew Sol Diet: High protein diet Activity on Discharge: As tolerated Stand Alone Forms: Patient Portal Discharge page Other Ambulatory Orders: Basic Metabolic Panel (Routine) Timeframe: 1 Week Facility: [facility] - Location: Laboratory Ordered By: Andrew Sol Care Plan Goals: Read below Health Concerns: Read below Plan of Treatment: Read below Assessment: Fluids restriction to 1.5L daily at max High-protein diet Start Lasix 40 mg daily Continue Spironolactone 25 mg twice daily Increase Lactulose dose to 20 mg twice daily with goal of 1-2 bowel movements daily.
[2023-04-30 10:59] VITALS: BP 116/57; PULSE 93; RESP 18; TEMP 36.5; O2SAT 98
== END 2023-04-30 13:43 | disposition skilled nursing facility (03) | DRG 433 ==
LOC: HO.ED 23:07 → HO.EDOVER 23:59 → HO.IMC 04-27 07:27
PROVIDERS: Physician Assistant; Admitting Provider Internal Medicine; Emergency Provider Emergency Medicine; PCP Internal Medicine; Visit Provider Student in an Organized Health Care Education/Training Program
DX: K74.60 Unspecified cirrhosis of liver (principal); E87.1 Hypo-osmolality and hyponatremia; E03.9 Hypothyroidism, unspecified; D69.59 Other secondary thrombocytopenia; E87.5 Hyperkalemia; E66.01 Morbid (severe) obesity due to excess calories; I10 Essential (primary) hypertension; E11.9 Type 2 diabetes mellitus without complications; E78.2 Mixed hyperlipidemia; M77.32 Calcaneal spur, left foot; G20.A1 Parkinson's disease without dyskinesia, without mention of fluctuations; Z86.19 Personal history of other infectious and parasitic diseases; Z68.39 Body mass index [BMI] 39.0-39.9, adult; Z79.890 Hormone replacement therapy; Z79.899 Other long term (current) drug therapy
CPT/HCPCS: 36415; 71045; 73620; 76705; 80048; 80053; 82947; 83735; 83880; 83930; 83935; 84300; 84484; 85025; 85379; 85610; 85730; 93005; 97161; 99285; J1650; J1940

== ENCOUNTER → 2023-04-26 23:50 | Outpatient (BNV) | payer MEDICARE, MEDICAID, SELFPAY | PROVIDERS: Admitting Provider Internal Medicine; Emergency Provider Emergency Medicine; PCP Internal Medicine; Visit Provider Internal Medicine | DX: K74.60 Unspecified cirrhosis of liver (principal); K72.90 Hepatic failure, unspecified without coma; E87.1 Hypo-osmolality and hyponatremia; R06.00 Dyspnea, unspecified; R60.0 Localized edema | CPT/HCPCS: 99223; 99232; 99233; 99239 ==

== ENCOUNTER 2023-06-17 07:32 | Inpatient (IN) | payer MEDICARE, MEDICAID, SELFPAY ==
--- NOTE | ~2023-06-17 | XR_ITS ---
EXAMINATION: XR CHEST CLINICAL INFORMATION: Tube placement COMPARISON: 06/17/2023 TECHNIQUE: Frontal view of the chest was obtained. FINDINGS: The tip of the NG tube is in region of the gastric body. Lungs are hypoinflated. No focal consolidation, pleural effusion or pneumothorax. Cardiac silhouette is normal in size. Pulmonary vasculature is not optimally evaluated due to the degree of lung hypoinflation. There is no overt pulmonary edema. No acute osseous abnormalities. XR/XR chest 1V IMPRESSION: * The tip of the NG tube is in the region of the gastric body. * Lungs are hypoinflated. However, no focal consolidation. No overt pulmonary edema.
--- NOTE | ~2023-06-17 | XR_ITS ---
EXAMINATION: XR CHEST CLINICAL INFORMATION: Weakness. COMPARISON: Most recent chest radiograph dated 04/26/2023. TECHNIQUE: Frontal view of the chest was obtained. FINDINGS: Pulmonary vascular prominence which could represent vascular crowding due to hypoinflation or indicate minimal pulmonary congestion. No focal airspace consolidation. No pleural effusion or pneumothorax. Stable cardiomediastinal silhouette. XR/XR chest 1V IMPRESSION: 1. Pulmonary vascular prominence which could represent vascular crowding due to hypoinflation or indicate minimal pulmonary congestion. Findings are slightly increased when compared to the prior examination. 2. No focal airspace consolidation.
[2023-06-17 07:38] VITALS: BP 120/71; BP 126/70; PULSE 108; RESP 18; TEMP 36.6; O2SAT 98; BMI 36.2
--- NOTE | 2023-06-17 07:54 | ECG_ITS ---
Test Reason : ALTERED MENTAL STATUS Blood Pressure : / mmHG Vent. Rate : 109 BPM Atrial Rate : 109 BPM P-R Int : 128 ms QRS Dur : 080 ms QT Int : 368 ms P-R-T Axes : 060 010 180 degrees QTc Int : 495 ms Sinus tachycardia Nonspecific T wave abnormality Abnormal ECG No previous ECGs available Referred By: Radha Lozano Electronically Signed By:SILVERIO THORPE MD
[2023-06-17 07:55] LABS: Glucose, Whole Blood 178 mg/dL (60-115)
--- NOTE | 2023-06-17 07:56 | ED_ITS ---
HPI - Altered Mental Status General Chief Complaint: Altered Mental Status Stated Complaint: AMS Source: patient and old records reviewed Mode of arrival: EMS Limitations: altered mental status History of Present Illness HPI narrative: 68 yo female with PMH of obesity, kidney stones, cirrhosis with hepatic encephalopathy, pancytopenia, hep C here with c/o worsening confusion and now somnolent starting yesterday. Hx of same in past daughter suspect ammonia is high. Notes decreased bowel movements despite lactulose use. No trauma, fevers, n/v/d or any other symptoms MD complaint: altered mental status and decreased responsiveness Onset (ago): day(s) (1) Timing confirmed by: family member Severity: moderate Consistency of symptoms: getting Worse Context: history of similar presentation Associated symptoms: denies other symptoms Related Data Home Medications Medication Instructions Recorded Confirmed carbidopa 25 mg-levodopa 100 mg 1 tab PO TID 04/21/20 06/17/23 tablet levothyroxine 75 mcg tablet 75 mcg PO DAILY 04/21/20 06/17/23 omeprazole 20 mg capsule,delayed 20 mg PO DAILY 04/21/20 06/17/23 release calcium carbonate 500 mg-vitamin 1 tab PO DAILY 11/09/21 06/17/23 D3 10 mcg (400 unit) tablet (Oyster Shell Calcium-Vitamin D3) montelukast 10 mg tablet 10 mg PO BEDTIME 09/16/22 06/17/23 gabapentin 300 mg capsule 300 mg PO TID 04/15/23 06/17/23 linagliptin 5 mg tablet (Tradjenta) 5 mg PO DAILY 06/17/23 06/17/23 spironolactone 50 mg tablet 50 mg PO DAILY 06/17/23 06/17/23 Previous Rx's Medication Instructions Recorded lactulose 20 gram/30 mL oral 20 g (30 mL) PO BID 30 days #1,800 04/30/23 solution mL Allergies Allergy/AdvReac Type Severity Reaction Status Date / Time aspirin [ASPIRIN] Allergy Intermediate HIVES Verified 04/26/23 13:28 Penicillins [PCN] Allergy Intermediate HIVES Verified 04/26/23 13:28 Review of Systems 2 Review of Systems: ROS unable to be obtained due to altered mental status PMFSH Past Medical History Source: old records reviewed Medical History (Updated 06/17/23 @ 12:08 by RENATE Lawrence) Hypothyroidism Lower extremity edema Cirrhosis Thrombocytopenia Cirrhosis Hx of hepatitis C Anemia Hypertension Parkinson disease Diabetes Severe sepsis Surgical History History of tubal ligation History of tonsillectomy History of cholecystectomy History of esophagogastroduodenoscopy (EGD) H/O colonoscopy Hx of lithotripsy History of cystoscopy Family History Family History Daughter Diabetes Daughter Diabetes Brother HTN (hypertension) Social History Household Members: Children Household Members Other:: 6 Housing: House Are you a primary managed care provider to a significant other at home: No Do you presently have visiting nurse or other home services: Yes Unable to assess alcohol history related to: Unable to respond Alcohol intake: never Patient Tobacco Use Status: Never used Tobacco Smoked in Last 30 Days: No Second Hand Smoke Exposure: No Advance Directives: Yes Advance Directives on File: Yes Advance Directives Date on File: 02/28/23 service: No Current occupational status: disabled Physical Exam ED Vital Signs: Vital Signs - 24 hr 06/17/23 07:38 06/17/23 08:00 06/17/23 11:21 Temperature 98 F 97.8 F Pulse Rate 108 H 109 H Respiratory Rate 18 15 Blood Pressure 126/70 131/80 Pulse Oximetry 98 100 Oxygen Delivery Method Room Air Room Air BMI result Body Mass Index 36.2 Appearance: Somnolent responds to verbal and tactile stimuli. Mild acute distress. Eyes: Pupils equal, round and reactive to light. Scleral icterus ENT: Pharynx normal. Neck: Normal inspection. Neck supple. CVS: Normal heart rate and rhythm. Pulses normal. Respiratory: No respiratory distress. Breath sounds normal. Abdomen: Soft and nontender. Does not grimace to palpation Skin: Skin warm and dry. jaundiced skin color. Normal skin turgor. Extremities: No lower extremity edema. No calf ttp Neuro: responds to verbal and tactile stimuli Medications Administered Generic Name Dose Route Start Last Admin Trade Name Freq PRN Reason Stop Dose Admin Furosemide 20 mg 06/17/23 11:55 06/17/23 13:58 Furosemide 20 Mg Tablet PO Not Given DAILY MICHAEL Protocol Spironolactone 50 mg 06/17/23 12:00 06/17/23 13:58 Spironolactone 25 Mg Tablet PO Not Given DAILY MICHAEL Protocol Discontinued Medications Generic Name Dose Route Start Last Admin Trade Name Rhianna PRN Reason Stop Dose Admin Magnesium Sulfate 2 gm in 50 mls @ 25 mls/hr 06/17/23 11:59 06/17/23 12:32 Magnesium Sulfate/H2o IV 06/17/23 13:58 25 mls/hr ONCE ONE Administration Lactulose 200 gm 06/17/23 08:01 06/17/23 09:59 Lactulose 320 Gm/480 Ml Solution AL 06/17/23 08:02 200 gm ONCE ONE Administration Lactulose 20 gm 06/17/23 09:19 06/17/23 11:18 Lactulose 20 Gm/30 Ml Solution PO 06/17/23 09:20 Not Given ONCE ONE Medical Decision Making Medical Decision Making [facility] Narrative: 68 yo female with PMH of obesity, kidney stones, cirrhosis with hepatic encephalopathy, pancytopenia, hep C here with c/o worsening confusion and disorientation since yesterday. Daughter notes she has done this before with elevated ammonia levels - no falls or trauma, no fevers, no infectious symptoms reported no n/v/d. Decreased bowel movements. At this time labs, ammonia level, UA and CXR. AL lactulose Differential Diagnosis Differential Diagnoses: The differential diagnosis associated with the presentation includes hepatic encephalopathy, dehydration, liver failure Admission/Observation Consideration of admission/observation: Escalation of care including admission/observation considered admit for further treatment and management Consult Healthcare Provider Management of the patient was discussed with: Hospitalist (agrees to admit) Lab Data [facility] Lab Attestation statement: I reviewed the patient's lab results. 06/17/23 08:24 06/17/23 08:24 Labs: Lab Results 06/17/23 06/17/23 06/17/23 Range/Units 07:42 08:24 09:29 WBC 3.2 L (4.8-10.8) X10*3/uL RBC 2.72 L (4.20-5.50) X10*6/uL Hgb 9.3 L (12.0-16.0) g/dl Hct 27.8 L (37.0-47.0) % MCV 102.2 H (80.0-98.0) fL MCH 34.2 H (27.0-33.0) pg MCHC 33.5 (31.0-35.0) g/dl RDW 16.2 H (11.0-16.0) % Plt Count 57 L D (160-400) X10*3/uL MPV 10.9 (9.4-12.3) fL Immature Gran % (Auto) 0.9 H (0.0-0.4) % Neut % (Auto) 62.2 (45-73) % Lymph % (Auto) 18.5 L (20-40) % [place] % (Auto) 14.7 H (2-11) % Eos % (Auto) 3.4 (0-4) % Baso % (Auto) 0.3 (0-2) % Lymph # (Auto) 0.6 L (1.2-4.9) X10*3/uL [place] # (Auto) 0.5 (0.1-1.2) X10*3/uL Eos # (Auto) 0.1 (0.0-0.4) X10*3/uL Baso # (Auto) 0.0 (0.0-0.2) X10*3/uL Abs Immat Gran (auto) 0.03 (0.00-0.03) X10*3/uL Absolute Neuts (auto) 2.0 (2.0-8.3) x10*3/uL Absolute Nucleated RBC 0.000 (0.0-0.012) X10*3/uL Nucleated RBC % (auto) 0.0 (0.0-0.2) /100WBC PT 24.6 H (11.1-13.3) SEC INR 2.0 H (0.9-1.1) Sodium 140 (135-145) mmol/L Potassium 4.7 (3.3-5.1) mmol/L Chloride 115 H (96-108) mmol/L Carbon Dioxide 22 (22-29) mmol/L Anion Gap 8 L (12-20) BUN 7 L (9-16) mg/dL Creatinine 0.71 (0.5-1.4) mg/dL Estim Creat Clear Calc 71.8 Estimated GFR > 60 POC Glucose 178 H (60-115) mg/dL Random Glucose 217 H (60-115) mg/dL Calcium 8.5 (8.4-10.2) mg/dL Magnesium 1.5 L (1.6-2.6) mg/dL Total Bilirubin 5.8 H (0.0-1.0) mg/dL Direct Bilirubin 1.7 H (0.0-0.5) mg/dL AST 57 H (5-31) U/L ALT 20 (0-31) U/L Alkaline Phosphatase 239 H (39-117) U/L Ammonia 153 H (13-55) umol/L Troponin I High Sens 5.8 D (<3.5-17.0) ng/L Total Protein 7.6 (6.5-8.0) g/dL Albumin 1.9 L (3.5-5.0) g/dL Lipase 86 H (8-78) U/L Urine Color Dark Yellow Urine Appearance Clear Urine pH 7.0 (5.0-9.0) Ur Specific [place] 1.020 (1.005-1.025) Urine Protein Negative (Neg-Trace) mg/dL Urine Glucose (UA) Negative (Negative) mg/dL Urine Ketones Negative (Negative) mg/dL Urine Blood Negative (Negative) Urine Nitrite Negative (Negative) Ur Leukocyte Esterase Negative (Negative) Ethyl Alcohol < 10 mg/dL Independent Interpretation I performed an independent interpretation of an: EKG and Plain X-Ray Interpretation: Rate: 109 Rhythm: sinus tachycardida [place]: normal Normal P waves. Normal [place]. Normal QRS complex. ST T wave : nonspecific ST T wave changes inf / lateral leads, no NELSON qTC: prolonged prior studies: The study has been interpreted contemporaneously by me. . Radiology Impression Discussion of test interpretation with radiology: I have reviewed the radiologist's reading. Independent Historian Clinical information obtained from an independent historian. History obtained from or confirmed by: Other (family) External Record Review External record reviewed: Inpatient record Discharge Plan Discharge Clinical Impression: Acute hepatic encephalopathy Patient Disposition: Admitted As Inpatient
[2023-06-17 08:00] VITALS: TEMP 36.6
[2023-06-17 08:29] LABS: MANUAL DIFF FLAG NO
[2023-06-17 08:31] LABS: Basophils Percent Auto 0.3 % (0-2); Eosinophils Absolute Auto 0.1 X10*3/uL (0.0-0.4); Eosinophils Percent Auto 3.4 % (0-4); Hematocrit 27.8 % (37.0-47.0); Hemoglobin 9.3 g/dl (12.0-16.0); Imm Gran Abs Auto 0.03 X10*3/uL (0.00-0.03); Imm Gran Pct Auto 0.9 % (0.0-0.4); Lymphocytes Absolute Auto 0.6 X10*3/uL (1.2-4.9); Lymphocytes Percent Auto 18.5 % (20-40); Mean Corpuscular HGB Conc 33.5 g/dl (31.0-35.0); Mean Corpuscular Hemoglobin 34.2 pg (27.0-33.0); Mean Corpuscular Volume 102.2 fL (80.0-98.0); Mean Platelet Volume 10.9 fL (9.4-12.3); Monocytes Absolute Auto 0.5 X10*3/uL (0.1-1.2); Monocytes Percent Auto 14.7 % (2-11); Neutrophils Percent Auto 62.2 % (45-73); Platelet Count 57 X10*3/uL (160-400); Red Blood Count 2.72 X10*6/uL (4.20-5.50); Red Cell Distribution Width 16.2 % (11.0-16.0); White Blood Count 3.2 X10*3/uL (4.8-10.8)
[2023-06-17 08:38] LABS: Prothrombin Time 24.6 SEC (11.1-13.3)
[2023-06-17 08:40] LABS: Ammonia 153 umol/L (13-55)
[2023-06-17 08:54] LABS: Troponin-I High Sensitivity 5.8 ng/L (<3.5-17.0)
[2023-06-17 08:58] LABS: Alanine Aminotransferase 20 U/L (0-31); Albumin Level 1.9 g/dL (3.5-5.0); Alkaline Phosphatase 239 U/L (39-117); Anion Gap 8 (12-20); Aspartate Amino Transferase 57 U/L (5-31); Bilirubin Direct 1.7 mg/dL (0.0-0.5); Bilirubin Total 5.8 mg/dL (0.0-1.0); Blood Urea Nitrogen 7 mg/dL (9-16); Calcium 8.5 mg/dL (8.4-10.2); Carbon Dioxide 22 mmol/L (22-29); Chloride 115 mmol/L (96-108); Creatinine Clr Calc Pharmacy 71.8; Estimated Glomerular Filt Rate > 60; Ethanol < 10 mg/dL; Glucose Random 217 mg/dL (60-115); Lipase 86 U/L (8-78); Magnesium 1.5 mg/dL (1.6-2.6); Potassium 4.7 mmol/L (3.3-5.1); Sodium 140 mmol/L (135-145); Total Protein 7.6 g/dL (6.5-8.0)
[2023-06-17 09:37] LABS: Appearance Urine Clear; Color Urine Dark Yellow; Glucose Urine UA Negative (Negative); Leukocyte Esterase Urine Negative (Negative); Nitrite Urine Negative (Negative); Urine Blood Negative (Negative); Urine Ketones Negative (Negative); Urine Protein Negative (Neg-Trace)
[2023-06-17] MEDS: Lactulose 320 GM/480 ML SOLUTION 200 GM PR (09:59)
--- NOTE | 2023-06-17 10:23 | PHA.MEDREC ---
Pharmacy Consult ? Medication Reconciliation Pharmacy has completed the medication reconciliation. Spoke to daughter, acarbose, atorvastatin furosemide and jentadueto all stopped 06/01. Spironolactone dose increased to 50 mg ariel
--- NOTE | 2023-06-17 11:18 | PC.NURSE ---
late entry - pt sleepy and unable to take PO lactulose at this time. attempted to give per DO order pt pt spat it out and remained sleepy. AK lactulose given
[2023-06-17 11:21] VITALS: BP 131/80; PULSE 109; RESP 15; O2SAT 100
--- NOTE | 2023-06-17 11:54 | P.HPHOSP_ITS ---
History of Present Illness Date of Service: 06/17/23 Attending physician on admission: Nathanael Hwang Chief Complaint: confusion, lethargy 68-year-old female with history of hepatic cirrhosis, history of hepatitis-C, hypothyroidism, [id number] type 2 diabetes, Parkinson's disease, hyperlipidemia presented to the ED with her daughter who is her unit supervisor for evaluation of altered mental status and lethargy that started yesterday. The patient is somnolent but arousable but unable to provide history secondary to mental status. Her daughter states that she follows with Dr. ku in Gastroenterology and lactulose was recently increased to 20 mg b.i.d.. Despite this, the patient continues to only have about 1 loose stool per day. Yesterday, the daughter noted the patient to be lethargic and very forgetful, not remembering names of family members with whom she lives which is different from baseline. She states she has also been more edematous over the last 3-4 days. She states that her Lasix was recently discontinued due to ?dehydration? but has been continued on spironolactone 50 mg daily. Reports compliance with all medications. No fevers, chills, recent illness, abdominal pain, nausea, vomiting, shortness of breath, lightheadedness, chest pain. No watery diarrhea. Eating and drinking normally. On arrival, patient mildly tachycardic to 108, vitals otherwise stable. She has a chronic baseline thrombocytopenia. INR 2.0, PTT 24.6. Renal function baseline, electrolyte levels normal except for chloride 115 and mag 1.5. Hepatic function baseline. Ammonia level 153 (baseline around 50) . Chest x- ray shows pulmonary vascular prominence possibly representing vascular crowding due to hypoinflation or indicative of minimal pulmonary congestion slightly increased compared to prior exams. No acute consolidation. In the ED, received 200g CA lactulose. Pt to be admitted for hepatic encephalopathy. Review of Systems 2 Review of Systems: Yes Unobtainable due to mental condition and Unobtainable due to mental status [facility] Medical History (Updated 06/17/23 @ 12:08 by RENATE Lawrence) Hypothyroidism Lower extremity edema Cirrhosis Thrombocytopenia Cirrhosis Hx of hepatitis C Anemia Hypertension Parkinson disease Diabetes Severe sepsis Family History Daughter Diabetes Daughter Diabetes Brother HTN (hypertension) Surgical History History of tubal ligation History of tonsillectomy History of cholecystectomy History of esophagogastroduodenoscopy (EGD) H/O colonoscopy Hx of lithotripsy History of cystoscopy Household Members: Children Household Members Other:: 6 Housing: House Are you a primary congregational care pastor to a significant other at home: No Do you presently have visiting nurse or other home services: Yes Unable to assess alcohol history related to: Unable to respond Alcohol intake: never Patient Tobacco Use Status: Never used Tobacco Smoked in Last 30 Days: No Second Hand Smoke Exposure: No Advance Directives: Yes Advance Directives on File: Yes Advance Directives Date on File: 02/28/23 service: No Current occupational status: disabled Meds Allergies Allergy/AdvReac Type Severity Reaction Status Date / Time aspirin [ASPIRIN] Allergy Intermediate HIVES Verified 04/26/23 13:28 Penicillins [PCN] Allergy Intermediate HIVES Verified 04/26/23 13:28 Home Medications Medication Instructions Recorded Confirmed Last Taken Type carbidopa 25 mg-levodopa 100 mg 1 tab PO TID 04/21/20 06/17/23 06/16/23 History tablet levothyroxine 75 mcg tablet 75 mcg PO DAILY 04/21/20 06/17/23 06/16/23 History omeprazole 20 mg capsule,delayed 20 mg PO DAILY 04/21/20 06/17/23 06/16/23 History release calcium carbonate 500 mg-vitamin 1 tab PO DAILY 11/09/21 06/17/23 06/16/23 History D3 10 mcg (400 unit) tablet (Oyster Shell Calcium-Vitamin D3) montelukast 10 mg tablet 10 mg PO BEDTIME 09/16/22 06/17/23 06/16/23 History gabapentin 300 mg capsule 300 mg PO TID 04/15/23 06/17/23 06/16/23 History linagliptin 5 mg tablet (Tradjenta) 5 mg PO DAILY 06/17/23 06/17/23 06/16/23 History spironolactone 50 mg tablet 50 mg PO DAILY 06/17/23 06/17/23 06/16/23 History Physical Exam 2 Vital Signs and Narrative: Vital Signs: Last Vital Signs Temp 97.8 F 06/17/23 08:00 Pulse 109 H 06/17/23 11:21 Resp 15 06/17/23 11:21 BP 131/80 06/17/23 11:21 Pulse Ox 100 06/17/23 11:21 O2 Del Method Room Air 06/17/23 11:21 BMI result Body Mass Index 36.2 Constitutional - Awake and Alert, No apparent distress Eyes - PERRLA, EOMI Cardiovascular - S1S2, RRR, 3+ pitting edema ble Respiratory - Normal lung expansion, Normal respiratory effort, No respiratory distress, CTA bilaterally Gastrointestinal - NT / ND; +BS; No rebound or guarding Extremities - no calf tenderness bilaterally Skin - Warm/Dry Neurological - Alert & oriented x3, CN II-XII in tact, 5/5 strength BUE and BLE Psychological - Appropriate affect Results Labs 06/17/23 08:24 06/17/23 08:24 Labs: Laboratory Results - last 24 hr 06/17/23 06/17/23 06/17/23 07:42 08:24 09:29 MCV 102.2 H MCH 34.2 H MCHC 33.5 RDW 16.2 H Plt Count 57 L D MPV 10.9 Immature Gran % (Auto) 0.9 H Neut % (Auto) 62.2 Lymph % (Auto) 18.5 L [place] % (Auto) 14.7 H Eos % (Auto) 3.4 Baso % (Auto) 0.3 Lymph # (Auto) 0.6 L [place] # (Auto) 0.5 Eos # (Auto) 0.1 Baso # (Auto) 0.0 Abs Immat Gran (auto) 0.03 Absolute Neuts (auto) 2.0 Absolute Nucleated RBC 0.000 Nucleated RBC % (auto) 0.0 PT 24.6 H INR 2.0 H Anion Gap 8 L Estim Creat Clear Calc 71.8 Estimated GFR > 60 POC Glucose 178 H Random Glucose 217 H Calcium 8.5 Magnesium 1.5 L Total Bilirubin 5.8 H Direct Bilirubin 1.7 H AST 57 H ALT 20 Alkaline Phosphatase 239 H Ammonia 153 H Total Protein 7.6 Albumin 1.9 L Lipase 86 H Urine Color Dark Yellow Urine Appearance Clear Urine pH 7.0 Ur Specific [place] 1.020 Urine Protein Negative Urine Glucose (UA) Negative Urine Ketones Negative Urine Blood Negative Urine Nitrite Negative Ur Leukocyte Esterase Negative Ethyl Alcohol < 10 Assessment and Plan (1) Acute hepatic encephalopathy: Status: Acute (2) Decompensated hepatic cirrhosis: Status: Acute Plan 68-year-old female with history of hepatic cirrhosis, history of hepatitis-C, hypothyroidism, [id number] type 2 diabetes, Parkinson's disease, hyperlipidemia admitted for hepatic encephalopathy. # acute toxic metabolic encephalopathy due to hepatic encephalopathy -ammonia level 153 -increase lactulose to 20 g t.i.d., titrate to achieve 2-3 loose stools per day -If remains lethargic, unable to tolerate PO meds, consider NG tube -monitor mentation -GI consult #Acute hypomagnesemia -repleted -follow mag #decompensated heaptic cirrhosis with anasarca -Add PO lasix 20mg, continue spironolactone 50mg, titrate as tolerated -continue lactulose as above -GI consult # chronic pancytopenia -due to hepatic cirrhosis -baseline, monitor cbc #Coagulopathy -due to cirrhosis -INR 2.0, monitor # odi-psutwnv-hffopvtsa type 2 diabetes -POC glucose -diabetic diet -humalog SSI -hold trajenta #Diabetic polyneuropathy -continue gabapentin #Parkinson's disease -continue sinemet # hypothyroidism -continue levothyroxine DVT prophylaxis- SCPs due to thombocytopenia Full code Patient requires inpatient stay at least 2 midnights for management of hepatic encephalopathy requiring adjustment of lactulose and close monitoring of mentation Quality Stroke Does the patient have a stroke diagnosis?: No VTE Prior VTE?: No VTE Risk Level:: Medical - moderate - high VTE Device Contraindication: N/A - Device Ordered VTE Drug Contraindication: Treatment Not Indicated
[2023-06-17] MEDS: Magnesium Sulfate/H2O 2 GM/50 ML PIGGYBACK IV (12:32)
--- NOTE | 2023-06-17 14:09 | PC.NURSE ---
per PA, PO meds are held for now. Will reassess at 1500 when next lactulose is due
--- NOTE | 2023-06-17 14:51 | PM.GICN ---
History of Present Illness Data of Consult Service Date: 06/17/23 Requesting physician: Carmelita Swann Primary Care Provider: Everett Ng MD HPI Reason for consult: confusion 68-year-old female with history of decompensated hepatic cirrhosis, history of hepatitis-C, hypothyroidism, [id number] type 2 diabetes, Parkinson's disease, hyperlipidemia who I am seeing for assessment for confusion and encephalopathy No hx from patient as she is somnolent. Per daughter pt hs had 6 admissions with simialr episodes over last several months. She is normally self caring at baseline and fully conversant. She sees DR Braun for her CLD and had refused referral for liver transplant eval per daughter. Yesterday daughter noted the patient to be lethargic and very forgetful, not remembering names of family members with whom she lives. Has been compliant with lactulose but not having good stool o/p. patient hd not been c/o abdominal pain, chest pain or other issues prior to decompensaion. Tests: LABS: INR 2.0, PTT 24.6. Renal function baseline, electrolyte levels normal except for chloride 115 and mag 1.5. Hepatic function baseline. Ammonia level 153 (baseline around 50) UA-nml CXR: no consolidation Review of Systems Review of Systems: Yes Unobtainable due to mental condition and Unobtainable due to mental status PMFSH Past Medical History Medical History (Updated 06/17/23 @ 12:08 by RENATE Lawrence) Hypothyroidism Lower extremity edema Cirrhosis Thrombocytopenia Cirrhosis Hx of hepatitis C Anemia Hypertension Parkinson disease Diabetes Severe sepsis Family History Family History Daughter Diabetes Daughter Diabetes Brother HTN (hypertension) Surgical History Surgical History History of tubal ligation History of tonsillectomy History of cholecystectomy History of esophagogastroduodenoscopy (EGD) H/O colonoscopy Hx of lithotripsy History of cystoscopy Social History Household Members: Children Household Members Other:: 6 Housing: House Are you a primary school child care attendant to a significant other at home: No Do you presently have visiting nurse or other home services: Yes Unable to assess alcohol history related to: Unable to respond Alcohol intake: never Patient Tobacco Use Status: Never used Tobacco Smoked in Last 30 Days: No Second Hand Smoke Exposure: No Advance Directives: Yes Advance Directives on File: Yes Advance Directives Date on File: 02/28/23 service: No Current occupational status: disabled Meds Allergies Allergy/AdvReac Type Severity Reaction Status Date / Time aspirin [ASPIRIN] Allergy Intermediate HIVES Verified 04/26/23 13:28 Penicillins [PCN] Allergy Intermediate HIVES Verified 04/26/23 13:28 Active Medications: Current Medications Acetaminophen (Acetaminophen 325 Mg Tablet) 650 mg PO Q6H PRN PRN Reason: Pain, Mild (Pain Scale 1-3) Calcium Carbonate/Cholecalciferol (Calcium + Vitamin D 250 Mg Tablet) 250 mg PO DAILY [facility] Carbidopa/Levodopa (Carbidopa/Levodopa 25/100 Tablet) 1 tab PO TID [facility] Dextrose (Dextrose 50 % 25 Gm/50 Ml Syringe) 25 gm IVPUSH Q15M PRN; Protocol PRN Reason: per Hypoglycemia Standing Ord. Docusate Sodium (Docusate Sodium 100 Mg Capsule) 100 mg PO DAILY PRN PRN Reason: Constipation Furosemide (Furosemide 20 Mg Tablet) 20 mg PO DAILY [facility]; Protocol Last Admin: 06/17/23 13:58 Dose: Not Given Gabapentin (Gabapentin 300 Mg Capsule) 300 mg PO TID [facility] Glucose (Glucose Gel 15 Gm Gel..Gram.) 15 gm PO Q15M PRN; Protocol PRN Reason: per Hypoglycemia Standing Ord. Insulin Human Lispro (Insulin Lispro 100 Unit/Ml 3 Ml Vial) 0 unit SUBCUT QIDACHS [facility]; Protocol Lactulose (Lactulose 20 Gm/30 Ml Solution) 20 gm PO TID [facility] Levothyroxine Sodium (Levothyroxine Sodium 75 Mcg Tablet) 75 mcg PO DAILY [facility] Montelukast Sodium (Montelukast Sodium 10 Mg Tablet) 10 mg PO BEDTIME [facility] Omeprazole (Omeprazole 20 Mg Capsule.Dr) 20 mg PO DAILY [facility] Ondansetron HCl (Ondansetron Hcl 4 Mg/2 Ml Vial) 4 mg IVPUSH Q8H PRN PRN Reason: Nausea and Vomiting Sodium Chloride (0.9 % Sodium Chloride Flush 3 Ml Syringe) 3 ml IVFLUSH QSHIFT [facility] Spironolactone (Spironolactone 25 Mg Tablet) 50 mg PO DAILY [facility]; Protocol Last Admin: 06/17/23 13:58 Dose: Not Given Home Medications Medication Instructions Recorded Confirmed Last Taken Type carbidopa 25 mg-levodopa 100 mg 1 tab PO TID 04/21/20 06/17/23 06/16/23 History tablet levothyroxine 75 mcg tablet 75 mcg PO DAILY 04/21/20 06/17/23 06/16/23 History omeprazole 20 mg capsule,delayed 20 mg PO DAILY 04/21/20 06/17/23 06/16/23 History release calcium carbonate 500 mg-vitamin 1 tab PO DAILY 11/09/21 06/17/23 06/16/23 History D3 10 mcg (400 unit) tablet (Oyster Shell Calcium-Vitamin D3) montelukast 10 mg tablet 10 mg PO BEDTIME 09/16/22 06/17/23 06/16/23 History gabapentin 300 mg capsule 300 mg PO TID 04/15/23 06/17/23 06/16/23 History linagliptin 5 mg tablet (Tradjenta) 5 mg PO DAILY 06/17/23 06/17/23 06/16/23 History spironolactone 50 mg tablet 50 mg PO DAILY 06/17/23 06/17/23 06/16/23 History Physical Exam Vital Signs: Vital Signs: Last Vital Signs Temp 97.8 F 06/17/23 08:00 Pulse 109 H 06/17/23 11:21 Resp 15 06/17/23 11:21 BP 131/80 06/17/23 11:21 Pulse Ox 100 06/17/23 11:21 O2 Del Method Room Air 06/17/23 11:21 BMI result Body Mass Index 36.2 EXAM: GENERAL: The patient is somnolent, jaundiced VITAL SIGNS:see workflow HEENT: +icteric sclerae, PERRLA, EOMI. Oropharynx clear. Moist mucous membranes. Conjunctivae appear well perfused. No thyroid mass. CHEST: Chest wall is nontender. HEART: Regular rate and rhythm without murmurs. LUNGS: Clear to auscultation bilaterally. ABDOMEN: Soft, positive bowel sounds, nontender, no organomegaly.no flank tenderness SKIN: No rash, no excessive bruising, petechiae, or purpura. NEUROLOGIC: somnolent, groaning and moving limbs Results Labs 06/17/23 08:24 06/17/23 08:24 Labs: Short CBC 06/17/23 Range/Units 08:24 WBC 3.2 L (4.8-10.8) X10*3/uL Hgb 9.3 L (12.0-16.0) g/dl Hct 27.8 L (37.0-47.0) % Plt Count 57 L D (160-400) X10*3/uL BMP 06/17/23 08:24 Sodium 140 Potassium 4.7 Chloride 115 H Carbon Dioxide 22 BUN 7 L Creatinine 0.71 Calcium 8.5 Liver Function 06/17/23 Range/Units 08:24 Total Bilirubin 5.8 H (0.0-1.0) mg/dL Direct Bilirubin 1.7 H (0.0-0.5) mg/dL AST 57 H (5-31) U/L ALT 20 (0-31) U/L Alkaline Phosphatase 239 H (39-117) U/L Albumin 1.9 L (3.5-5.0) g/dL Urine 06/17/23 Range/Units 09:29 Urine Color Dark Yellow Urine Appearance Clear Urine pH 7.0 (5.0-9.0) Ur Specific [place] 1.020 (1.005-1.025) Urine Protein Negative (Neg-Trace) mg/dL Urine Glucose (UA) Negative (Negative) mg/dL Assessment and Plan (1) Hepatic encephalopathy: Status: Acute (2) Alcoholic cirrhosis of liver without ascites: Status: Acute Plan 1/ Recurrent encepahloapthy, no clear trigger possbly under dosed on lactulose, other considerations for causing recurrent attacks would be splenorenal shunt or HCC. PLAN: 1/ Agree with lactulose, if cant take PO then rectal--aiming for 3 stools a day at least 2/ optimize lytes, K, mag, Ca 3/ avoid hepatotoxins and sedatives 4/ once more alert, add zinc supplement 220 mg daily and rifaximin with PO lactulose 5/ Triple phase CT when better to eval for spenorenal shunt and HCC 6/ High calorie diet 1.1 g/kg of protein daily 7/ check thiamine level 8/ if no improvement then brain imaging Procedures Date of Service Date of Service: 06/17/23
[2023-06-17 15:21] VITALS: BP 121/51; PULSE 110; RESP 18; O2SAT 98
[2023-06-17 17:06] LABS: Glucose, Whole Blood 157 mg/dL (60-115)
--- NOTE | 2023-06-17 18:26 | PC.NURSE ---
NGT placed per provider's order at approximately 1805 by this RN with assistance from secondary RN at bedside. Radiology contacted for bedside chest x-ray. Awaiting results before using NGT.
[2023-06-17 19:27] VITALS: BP 124/69; PULSE 103; RESP 16; TEMP 36.2; O2SAT 100
[2023-06-17] MEDS: 0.9 % Sodium Chloride Flush 3 ML SYRINGE IVFLUSH (21:23)
[2023-06-17 21:31] LABS: Glucose, Whole Blood 133 mg/dL (60-115)
[2023-06-18 02:53] VITALS: BP 135/63; PULSE 97; RESP 20; TEMP 36.3; O2SAT 100
[2023-06-18 06:15] LABS: MANUAL DIFF FLAG NO
[2023-06-18 06:23] LABS: Basophils Percent Auto 0.3 % (0-2); Eosinophils Absolute Auto 0.1 X10*3/uL (0.0-0.4); Hematocrit 28.1 % (37.0-47.0); Hemoglobin 9.5 g/dl (12.0-16.0); Imm Gran Abs Auto 0.04 X10*3/uL (0.00-0.03); Imm Gran Pct Auto 1.1 % (0.0-0.4); Lymphocytes Absolute Auto 0.9 X10*3/uL (1.2-4.9); Lymphocytes Percent Auto 25.5 % (20-40); Mean Corpuscular HGB Conc 33.8 g/dl (31.0-35.0); Mean Corpuscular Hemoglobin 34.4 pg (27.0-33.0); Mean Corpuscular Volume 101.8 fL (80.0-98.0); Mean Platelet Volume 10.4 fL (9.4-12.3); Monocytes Absolute Auto 0.4 X10*3/uL (0.1-1.2); Monocytes Percent Auto 12.2 % (2-11); Neutrophils Percent Auto 56.9 % (45-73); Red Blood Count 2.76 X10*6/uL (4.20-5.50); Red Cell Distribution Width 16.2 % (11.0-16.0); White Blood Count 3.5 X10*3/uL (4.8-10.8)
[2023-06-18 06:24] LABS: Platelet Count 59 X10*3/uL (160-400)
[2023-06-18 06:40] LABS: Anion Gap 8 (12-20); Blood Urea Nitrogen 8 mg/dL (9-16); Calcium 8.1 mg/dL (8.4-10.2); Carbon Dioxide 21 mmol/L (22-29); Chloride 115 mmol/L (96-108); Creatinine Clr Calc Pharmacy 75.1; Estimated Glomerular Filt Rate > 60; Glucose Random 124 mg/dL (60-115); Magnesium 1.8 mg/dL (1.6-2.6); Potassium 4.1 mmol/L (3.3-5.1); Sodium 140 mmol/L (135-145)
[2023-06-18 07:16] VITALS: BP 147/68; PULSE 98; RESP 20; TEMP 36.2; O2SAT 99
[2023-06-18 08:20] LABS: Glucose, Whole Blood 112 mg/dL (60-115)
--- NOTE | 2023-06-18 08:42 | P.PNIM_ITS ---
Subjective Subjective Date of Service: 06/18/23 Review of Systems Review of Systems: Yes Unobtainable due to mental condition Physical Exam 2 Vital Signs: Vital Signs: Last Vital Signs Temp 97.2 F 06/18/23 07:16 Pulse 98 06/18/23 07:16 Resp 20 06/18/23 07:16 BP 147/68 H 06/18/23 07:16 Pulse Ox 99 06/18/23 07:16 O2 Del Method Room Air 06/18/23 07:16 BMI result Body Mass Index 36.2 obtunded abd soft, non distended Objective Data Active Medications Acetaminophen (Acetaminophen 325 Mg Tablet) 650 mg PO Q6H PRN PRN Reason: Pain, Mild (Pain Scale 1-3) Calcium Carbonate/Cholecalciferol (Calcium + Vitamin D 250 Mg Tablet) 250 mg PO DAILY [facility] Carbidopa/Levodopa (Carbidopa/Levodopa 25/100 Tablet) 1 tab NG-TUBE TID [facility] Last Admin: 06/17/23 23:56 Dose: Not Given Documented By: ALOK Non-Admin Reason: awaiting x-ray verification of placement Dextrose (Dextrose 50 % 25 Gm/50 Ml Syringe) 25 gm IVPUSH Q15M PRN; Protocol PRN Reason: per Hypoglycemia Standing Ord. Docusate Sodium (Docusate Sodium 100 Mg Capsule) 100 mg PO DAILY PRN PRN Reason: Constipation Furosemide (Furosemide 20 Mg Tablet) 20 mg PO DAILY [facility]; Protocol Gabapentin (Gabapentin 300 Mg Capsule) 300 mg PO TID [facility] Last Admin: 06/17/23 23:56 Dose: Not Given Documented By: ALOK Non-Admin Reason: awaiting x-ray verification of ngt placement Glucose (Glucose Gel 15 Gm Gel..Gram.) 15 gm PO Q15M PRN; Protocol PRN Reason: per Hypoglycemia Standing Ord. Insulin Human Lispro (Insulin Lispro 100 Unit/Ml 3 Ml Vial) 0 unit SUBCUT QIDACHS [facility]; Protocol Last Admin: 06/18/23 08:29 Dose: Not Given Documented By: EVIN Non-Admin Reason: No Insulin Coverage Lactulose (Lactulose 20 Gm/30 Ml Solution) 20 gm NG-TUBE TID [facility] Last Admin: 06/17/23 23:57 Dose: Not Given Documented By: ALOK Non-Admin Reason: awaiting x-ray verification of ngt placement Levothyroxine Sodium (Levothyroxine Sodium 75 Mcg Tablet) 75 mcg PO DAILY [facility] Montelukast Sodium (Montelukast Sodium 10 Mg Tablet) 10 mg PO BEDTIME [facility] Last Admin: 06/17/23 23:58 Dose: Not Given Documented By: ALOK Non-Admin Reason: awaiting x-ray verification of ngt placement Omeprazole (Omeprazole 20 Mg Capsule.Dr) 20 mg PO DAILY [facility] Ondansetron HCl (Ondansetron Hcl 4 Mg/2 Ml Vial) 4 mg IVPUSH Q8H PRN PRN Reason: Nausea and Vomiting Sodium Chloride (0.9 % Sodium Chloride Flush 3 Ml Syringe) 3 ml IVFLUSH QSHIFT [facility] Last Admin: 06/17/23 21:23 Dose: 3 ml Documented By: ALOK Spironolactone (Spironolactone 25 Mg Tablet) 50 mg PO DAILY [facility]; Protocol Last Admin: 06/17/23 13:58 Dose: Not Given Documented By: JEREL Non-Admin Reason: per RENATE, hold Labs 06/18/23 05:50 06/18/23 05:50 Labs: Laboratory Results - last 24 hr 06/17/23 06/17/23 06/17/23 08:24 09:29 16:48 MCV MCH MCHC RDW Plt Count MPV Immature Gran % (Auto) Neut % (Auto) Lymph % (Auto) [place] % (Auto) Eos % (Auto) Baso % (Auto) Lymph # (Auto) [place] # (Auto) Eos # (Auto) Baso # (Auto) Abs Immat Gran (auto) Absolute Neuts (auto) Absolute Nucleated RBC Nucleated RBC % (auto) Anion Gap 8 L Estim Creat Clear Calc 71.8 Estimated GFR > 60 POC Glucose 157 H Random Glucose 217 H Calcium 8.5 Magnesium 1.5 L Total Bilirubin 5.8 H Direct Bilirubin 1.7 H AST 57 H ALT 20 Alkaline Phosphatase 239 H Total Protein 7.6 Albumin 1.9 L Lipase 86 H Urine Color Dark Yellow Urine Appearance Clear Urine pH 7.0 Ur Specific [place] 1.020 Urine Protein Negative Urine Glucose (UA) Negative Urine Ketones Negative Urine Blood Negative Urine Nitrite Negative Ur Leukocyte Esterase Negative Ethyl Alcohol < 10 06/17/23 06/18/23 06/18/23 20:42 05:50 07:18 MCV 101.8 H MCH 34.4 H MCHC 33.8 RDW 16.2 H Plt Count 59 L MPV 10.4 Immature Gran % (Auto) 1.1 H Neut % (Auto) 56.9 Lymph % (Auto) 25.5 [place] % (Auto) 12.2 H Eos % (Auto) 4.0 Baso % (Auto) 0.3 Lymph # (Auto) 0.9 L [place] # (Auto) 0.4 Eos # (Auto) 0.1 Baso # (Auto) 0.0 Abs Immat Gran (auto) 0.04 H Absolute Neuts (auto) 2.0 Absolute Nucleated RBC 0.000 Nucleated RBC % (auto) 0.0 Anion Gap 8 L Estim Creat Clear Calc 75.1 Estimated GFR > 60 POC Glucose 133 H 112 Random Glucose 124 H Calcium 8.1 L Magnesium 1.8 Total Bilirubin Direct Bilirubin AST ALT Alkaline Phosphatase Total Protein Albumin Lipase Urine Color Urine Appearance Urine pH Ur Specific [place] Urine Protein Urine Glucose (UA) Urine Ketones Urine Blood Urine Nitrite Ur Leukocyte Esterase Ethyl Alcohol Assessment and Plan (1) Acute hepatic encephalopathy: Status: Acute Plan 67F PMH hcv cirrhosis, hypothryoid, dm, parkinsons, hld, presented with ams Acute toxic metabolic encephalopathy due to hepatic encephalopathy in patient with HCV cirrhosis NG tube in place, continue lactulose for 2-3 bowel movements per day GI following Continue Aldactone and Lasix Acute hypomagnesemia Replaced Diabetes Insulin sliding scale Parkinson's Sinemet Hypothyroid Levothyroxine DVT prophylaxis - mechanical due to thrombocytopenia from cirrhosis Full code Reason for continued hospitalization: Not at baseline mental status Quality Stroke Does the patient have a stroke diagnosis?: No VTE Prior VTE?: No VTE Risk Level:: Medical - moderate - high VTE Device Contraindication: N/A - Device Ordered VTE Drug Contraindication: Treatment Not Indicated
--- NOTE | 2023-06-18 10:33 | PC.NURSE ---
Contacted MD at [phone] for confirmation of NG tube placement. MD confirms NG tube is correctly placed after reviewing chest x-ray report. Medications safe to administer via NG tube per MD.
[2023-06-18] MEDS: Calcium + Vitamin D 250 MG TABLET NG-TUBE (10:37)
[2023-06-18] MEDS: Gabapentin 300 MG CAPSULE NG-TUBE ×3 (10:37→20:10)
[2023-06-18] MEDS: Omeprazole/Na Bicarb Oral Susp 20 MG/10 ML UD Cup NG-TUBE (10:37)
[2023-06-18] MEDS: Lactulose 20 GM/30 ML SOLUTION NG-TUBE ×3 (10:37→20:09)
[2023-06-18] MEDS: Spironolactone 25 MG TABLET 50 MG NG-TUBE (10:37)
[2023-06-18] MEDS: Levothyroxine Sodium 75 MCG TABLET NG-TUBE (10:37)
[2023-06-18] MEDS: Furosemide 20 MG TABLET NG-TUBE (10:38)
[2023-06-18] MEDS: Carbidopa/Levodopa 25/100 TABLET 1 TAB NG-TUBE ×3 (10:38→20:10)
--- NOTE | 2023-06-18 10:43 | MHC.CM.PN ---
CM CALLED PTS DAUGHTER/HCP, MARCIA [phone] SHE REPORTS THE PT LIVES WITH HER AND HAS DAILY [employer] PT IS ALSO ACTIVE WITH [facility] PT USES A [facility] HCP ON FILE PCP: NIKOS HARRIS IMM DELIVERED DCP: [facility] DAUGHTER TO TRANSPORT
[2023-06-18 11:14] LABS: Glucose, Whole Blood 111 mg/dL (60-115)
[2023-06-18 15:14] VITALS: BP 147/65; PULSE 98; RESP 20; TEMP 36.2; O2SAT 100
[2023-06-18] MEDS: 0.9 % Sodium Chloride Flush 3 ML SYRINGE IVFLUSH ×2 (15:28→20:10)
[2023-06-18 16:09] LABS: Glucose, Whole Blood 119 mg/dL (60-115)
[2023-06-18 19:10] VITALS: BP 141/60; PULSE 100; RESP 18; TEMP 36.1; O2SAT 100
[2023-06-18] MEDS: Montelukast Sodium 10 MG TABLET NG-TUBE (20:09)
[2023-06-18 20:33] LABS: Glucose, Whole Blood 131 mg/dL (60-115)
[2023-06-19 03:45] VITALS: BP 137/92; PULSE 98; RESP 18; TEMP 36.4; O2SAT 98
[2023-06-19] MEDS: Omeprazole/Na Bicarb Oral Susp 20 MG/10 ML UD Cup NG-TUBE (05:42)
[2023-06-19] MEDS: Levothyroxine Sodium 75 MCG TABLET NG-TUBE (05:42)
[2023-06-19 06:41] LABS: Anion Gap 10 (12-20); Blood Urea Nitrogen 11 mg/dL (9-16); Calcium 7.8 mg/dL (8.4-10.2); Carbon Dioxide 20 mmol/L (22-29); Chloride 114 mmol/L (96-108); Estimated Glomerular Filt Rate > 60; Glucose Fasting 120 mg/dL (60-99); Potassium 3.7 mmol/L (3.3-5.1); Sodium 140 mmol/L (135-145)
[2023-06-19 06:42] LABS: Hematocrit 27.9 % (37.0-47.0); Hemoglobin 9.5 g/dl (12.0-16.0); Mean Corpuscular HGB Conc 34.1 g/dl (31.0-35.0); Mean Corpuscular Hemoglobin 35.1 pg (27.0-33.0); Mean Platelet Volume 10.6 fL (9.4-12.3); Platelet Count 56 X10*3/uL (160-400); Red Blood Count 2.71 X10*6/uL (4.20-5.50); Red Cell Distribution Width 16.7 % (11.0-16.0); White Blood Count 3.8 X10*3/uL (4.8-10.8)
[2023-06-19 07:49] LABS: Glucose, Whole Blood 105 mg/dL (60-115)
[2023-06-19 07:57] VITALS: BP 124/57; PULSE 97; RESP 18; TEMP 36.1; O2SAT 98
--- NOTE | 2023-06-19 08:22 | P.PNIM_ITS ---
Subjective Subjective Date of Service: 06/19/23 Interval History: more alert Physical Exam 2 Vital Signs: Vital Signs: Last Vital Signs Temp 97 F 06/19/23 07:57 Pulse 97 06/19/23 07:57 Resp 18 06/19/23 07:57 BP 124/57 L 06/19/23 07:57 Pulse Ox 98 06/19/23 07:57 O2 Del Method Room Air 06/19/23 07:57 BMI result Body Mass Index 36.2 more alert, eyes opened spontaneously, jaundiced, severe asterixis Objective Data Active Medications Acetaminophen (Acetaminophen Oral Liquid 650 Mg/20.3 Ml Solution) 650 mg NG- TUBE Q6H PRN PRN Reason: Pain, Mild (Pain Scale 1-3) Calcium Carbonate/Cholecalciferol (Calcium + Vitamin D 250 Mg Tablet) 250 mg NG-TUBE DAILY [facility] Last Admin: 06/18/23 10:37 Dose: 250 mg Documented By: EVIN Carbidopa/Levodopa (Carbidopa/Levodopa 25/100 Tablet) 1 tab NG-TUBE TID [facility] Last Admin: 06/18/23 20:10 Dose: 1 tab Documented By: ALOK Dextrose (Dextrose 50 % 25 Gm/50 Ml Syringe) 25 gm IVPUSH Q15M PRN; Protocol PRN Reason: per Hypoglycemia Standing Ord. Docusate Sodium (Docusate Sodium 100 Mg/10 Ml Liquid) 100 mg NG-TUBE DAILY PRN PRN Reason: Constipation Furosemide (Furosemide 20 Mg Tablet) 20 mg NG-TUBE DAILY [facility]; Protocol Last Admin: 06/18/23 10:38 Dose: 20 mg Documented By: EVIN Gabapentin (Gabapentin 300 Mg Capsule) 300 mg NG-TUBE TID [facility] Last Admin: 06/18/23 20:10 Dose: 300 mg Documented By: ALOK Glucose (Glucose Gel 15 Gm Gel..Gram.) 15 gm PO Q15M PRN; Protocol PRN Reason: per Hypoglycemia Standing Ord. Insulin Human Lispro (Insulin Lispro 100 Unit/Ml 3 Ml Vial) 0 unit SUBCUT QIDACHS [facility]; Protocol Last Admin: 06/18/23 20:22 Dose: Not Given Documented By: ALOK Non-Admin Reason: No Insulin Coverage Lactulose (Lactulose 20 Gm/30 Ml Solution) 20 gm NG-TUBE TID [facility] Last Admin: 06/18/23 20:09 Dose: 20 gm Documented By: ALOK Levothyroxine Sodium (Levothyroxine Sodium 75 Mcg Tablet) 75 mcg NG-TUBE DAILY@0600 [facility] Last Admin: 06/19/23 05:42 Dose: 75 mcg Documented By: ALOK Montelukast Sodium (Montelukast Sodium 10 Mg Tablet) 10 mg NG-TUBE BEDTIME [facility] Last Admin: 06/18/23 20:09 Dose: 10 mg Documented By: ALOK Omeprazole (Omeprazole/Na Bicarb Oral Susp 20 Mg/10 Ml Ud Cup) 20 mg NG-TUBE DAILY@0630 [facility] Last Admin: 06/19/23 05:42 Dose: 20 mg Documented By: ALOK Ondansetron HCl (Ondansetron Hcl 4 Mg/2 Ml Vial) 4 mg IVPUSH Q8H PRN PRN Reason: Nausea and Vomiting Sodium Chloride (0.9 % Sodium Chloride Flush 3 Ml Syringe) 3 ml IVFLUSH QSHIFT [facility] Last Admin: 06/18/23 20:10 Dose: 3 ml Documented By: ALOK Spironolactone (Spironolactone 25 Mg Tablet) 50 mg NG-TUBE DAILY [facility]; Protocol Last Admin: 06/18/23 10:37 Dose: 50 mg Documented By: EVIN Labs 06/19/23 06:18 06/19/23 06:18 Labs: Laboratory Results - last 24 hr 06/18/23 06/18/23 06/18/23 11:03 16:01 20:15 MCV MCH MCHC RDW Plt Count MPV Absolute Nucleated RBC Nucleated RBC % (auto) Anion Gap Estim Creat Clear Calc Estimated GFR POC Glucose 111 119 H 131 H Fasting Glucose Calcium 06/19/23 06/19/23 06:18 07:32 MCV 103.0 H MCH 35.1 H MCHC 34.1 RDW 16.7 H Plt Count 56 L MPV 10.6 Absolute Nucleated RBC 0.000 Nucleated RBC % (auto) 0.0 Anion Gap 10 L Estim Creat Clear Calc 68.0 Estimated GFR > 60 POC Glucose 105 Fasting Glucose 120 H Calcium 7.8 L Assessment and Plan (1) Acute hepatic encephalopathy: Status: Acute Plan 67F PMH hcv cirrhosis, hypothryoid, dm, parkinsons, hld, presented with ams Acute toxic metabolic encephalopathy due to hepatic encephalopathy in patient with HCV cirrhosis NG tube in place, continue lactulose for 2-3 bowel movements per day improving, may pull NGT if able to tolerate po GI following Continue Aldactone and Lasix Acute hypomagnesemia Replaced Diabetes Insulin sliding scale Parkinson's Sinemet Hypothyroid Levothyroxine DVT prophylaxis - mechanical due to thrombocytopenia from cirrhosis Full code Reason for continued hospitalization: Not at baseline mental status Quality Stroke Does the patient have a stroke diagnosis?: No VTE Prior VTE?: No VTE Risk Level:: Medical - moderate - high VTE Device Contraindication: N/A - Device Ordered VTE Drug Contraindication: Treatment Not Indicated
[2023-06-19] MEDS: Lactulose 20 GM/30 ML SOLUTION NG-TUBE (08:51)
[2023-06-19] MEDS: Gabapentin 300 MG CAPSULE NG-TUBE (08:51)
[2023-06-19] MEDS: Carbidopa/Levodopa 25/100 TABLET 1 TAB NG-TUBE (08:51)
[2023-06-19] MEDS: Spironolactone 25 MG TABLET 50 MG NG-TUBE (08:52)
[2023-06-19] MEDS: Furosemide 20 MG TABLET NG-TUBE (08:52)
[2023-06-19] MEDS: Calcium + Vitamin D 250 MG TABLET NG-TUBE (08:52)
[2023-06-19] MEDS: 0.9 % Sodium Chloride Flush 3 ML SYRINGE IVFLUSH ×3 (08:56→20:13)
[2023-06-19 11:33] LABS: Glucose, Whole Blood 163 mg/dL (60-115)
[2023-06-19] MEDS: Insulin Lispro 100 UNIT/ML 3 ML VIAL SUBCUT ×3 (12:13→22:14)
[2023-06-19] MEDS: Carbidopa/Levodopa 25/100 TABLET 1 TAB PO ×2 (14:50→20:12)
[2023-06-19] MEDS: Lactulose 20 GM/30 ML SOLUTION PO ×2 (14:50→20:13)
[2023-06-19] MEDS: Gabapentin 300 MG CAPSULE PO ×2 (14:50→20:12)
[2023-06-19 15:15] VITALS: BP 143/63; PULSE 95; RESP 18; TEMP 36.1; O2SAT 96
[2023-06-19 16:29] LABS: Glucose, Whole Blood 206 mg/dL (60-115)
[2023-06-19 20:00] VITALS: BP 129/61; PULSE 100; RESP 18; TEMP 36.3; O2SAT 99
[2023-06-19] MEDS: Montelukast Sodium 10 MG TABLET PO (20:13)
[2023-06-19 20:34] LABS: Glucose, Whole Blood 171 mg/dL (60-115)
[2023-06-20 04:00] VITALS: BP 120/59; PULSE 91; RESP 16; TEMP 36.9; O2SAT 99
[2023-06-20] MEDS: Levothyroxine Sodium 75 MCG TABLET PO (05:47)
[2023-06-20] MEDS: Omeprazole/Na Bicarb Oral Susp 20 MG/10 ML UD Cup PO (05:47)
[2023-06-20 06:00] LABS: Hematocrit 25.2 % (37.0-47.0); Hemoglobin 8.4 g/dl (12.0-16.0); Mean Corpuscular HGB Conc 33.3 g/dl (31.0-35.0); Mean Corpuscular Hemoglobin 34.7 pg (27.0-33.0); Mean Corpuscular Volume 104.1 fL (80.0-98.0); Mean Platelet Volume 11.4 fL (9.4-12.3); Red Blood Count 2.42 X10*6/uL (4.20-5.50); Red Cell Distribution Width 16.2 % (11.0-16.0); White Blood Count 3.9 X10*3/uL (4.8-10.8)
[2023-06-20 06:12] LABS: Ammonia 70 umol/L (13-55)
[2023-06-20 06:17] LABS: Anion Gap 7 (12-20); Blood Urea Nitrogen 10 mg/dL (9-16); Calcium 7.8 mg/dL (8.4-10.2); Carbon Dioxide 23 mmol/L (22-29); Chloride 111 mmol/L (96-108); Creatinine Clr Calc Pharmacy 66.2; Estimated Glomerular Filt Rate > 60; Glucose Fasting 175 mg/dL (60-99); Magnesium 1.6 mg/dL (1.6-2.6); Potassium 4.2 mmol/L (3.3-5.1); Sodium 137 mmol/L (135-145)
[2023-06-20 06:18] LABS: Platelet Count 39 X10*3/uL (160-400)
[2023-06-20 07:08] VITALS: BP 129/56; PULSE 81; RESP 16; TEMP 36.1; O2SAT 99
[2023-06-20 07:29] LABS: Glucose, Whole Blood 155 mg/dL (60-115)
[2023-06-20] MEDS: Lactulose 20 GM/30 ML SOLUTION PO ×2 (08:30→14:37)
[2023-06-20] MEDS: Insulin Lispro 100 UNIT/ML 3 ML VIAL SUBCUT ×3 (08:30→16:36)
[2023-06-20] MEDS: Spironolactone 25 MG TABLET 50 MG PO (08:31)
[2023-06-20] MEDS: Furosemide 20 MG TABLET PO (08:31)
[2023-06-20] MEDS: Gabapentin 300 MG CAPSULE PO ×2 (08:31→14:37)
[2023-06-20] MEDS: Calcium + Vitamin D 250 MG TABLET PO (08:31)
[2023-06-20] MEDS: Carbidopa/Levodopa 25/100 TABLET 1 TAB PO ×2 (08:31→14:37)
[2023-06-20] MEDS: 0.9 % Sodium Chloride Flush 3 ML SYRINGE IVFLUSH ×2 (08:40→16:36)
--- NOTE | 2023-06-20 09:24 | PM.DS ---
DS: Providers Provider Date of Service: 06/20/23 Date of admission: 06/17/23 11:49 Primary care physician: Everett Ng MD Consults: 06/17/23 12:12 Consult to Gastroenterology Routine Consulting Provider: Souarv Ku Reason for consultation: hepatic encephalopathy DS: Diagnosis Discharge Diagnosis (1) Acute hepatic encephalopathy: Status: Acute DS: Summary Hospital Course Hospital Course: from initial hpi: 68-year-old female with history of hepatic cirrhosis, history of hepatitis-C, hypothyroidism, eyf-vdjjlpc-blwcbicnb type 2 diabetes, Parkinson's disease, hyperlipidemia presented to the ED with her daughter who is her inspection machine tender for evaluation of altered mental status and lethargy that started yesterday. The patient is somnolent but arousable but unable to provide history secondary to mental status. Her daughter states that she follows with Dr. ku in Gastroenterology and lactulose was recently increased to 20 mg b.i.d.. Despite this, the patient continues to only have about 1 loose stool per day. Yesterday, the daughter noted the patient to be lethargic and very forgetful, not remembering names of family members with whom she lives which is different from baseline. She states she has also been more edematous over the last 3-4 days. She states that her Lasix was recently discontinued due to ?dehydration? but has been continued on spironolactone 50 mg daily. Reports compliance with all medications. No fevers, chills, recent illness, abdominal pain, nausea, vomiting, shortness of breath, lightheadedness, chest pain. No watery diarrhea. Eating and drinking normally. On arrival, patient mildly tachycardic to 108, vitals otherwise stable. She has a chronic baseline thrombocytopenia. INR 2.0, PTT 24.6. Renal function baseline, electrolyte levels normal except for chloride 115 and mag 1.5. Hepatic function baseline. Ammonia level 153 (baseline around 50) . Chest x-ray shows pulmonary vascular prominence possibly representing vascular crowding due to hypoinflation or indicative of minimal pulmonary congestion slightly increased compared to prior exams. No acute consolidation. In the ED, received 200g IA lactulose. Pt to be admitted for hepatic encephalopathy. hospital course: Patient was admitted for acute toxic metabolic encephalopathy due to hepatic encephalopathy in a patient with hepatitis C cirrhosis. She needed an NG tube placed and was started on lactulose. Patient started having successful bowel movements and mental status improved to baseline over the next couple of days. NG tube was able to be removed and patient tolerated oral intake. For ascites and peripheral edema she was continued on Aldactone and Lasix was started. For acute hypo magnesemia she received replacement. For diabetes was continue on insulin. For Parkinson's she was continue on Sinemet. For hypothyroidism she was continued on Synthroid. Patient appears back to baseline and will be discharged home with services. She should follow up outpatient with Gastroenterology. Time Attestation Discharge coordination time: Greater than 30 minutes Quality: Safe Use of Opioids Does Pt have an Active Cancer Diagnosis on the Problem List?: No Quality: Stroke Does the patient have a stroke diagnosis?: No Physical Exam Vital Signs: Vital Signs: Last Vital Signs Temp 96.9 F 06/20/23 07:08 Pulse 81 06/20/23 07:08 Resp 16 06/20/23 07:08 BP 129/56 L 06/20/23 07:08 Pulse Ox 99 06/20/23 07:08 O2 Del Method Room Air 06/20/23 07:08 BMI result Body Mass Index 36.2 alert, feeding self, talking, jaundinced, abd soft, no acute distress DS: Data Data Completed and Pending Labs on day of discharge: Laboratory Results - last 24 hr 06/19/23 06/19/23 06/19/23 11:22 16:21 20:23 WBC RBC Hgb Hct MCV MCH MCHC RDW Plt Count MPV Absolute Nucleated RBC Nucleated RBC % (auto) Sodium Potassium Chloride Carbon Dioxide Anion Gap BUN Creatinine Estim Creat Clear Calc Estimated GFR POC Glucose 163 H 206 H 171 H Fasting Glucose Calcium Magnesium Ammonia 06/20/23 06/20/23 05:50 07:12 WBC 3.9 L RBC 2.42 L Hgb 8.4 L Hct 25.2 L MCV 104.1 H MCH 34.7 H MCHC 33.3 RDW 16.2 H Plt Count 39 L D MPV 11.4 Absolute Nucleated RBC 0.000 Nucleated RBC % (auto) 0.0 Sodium 137 Potassium 4.2 Chloride 111 H Carbon Dioxide 23 Anion Gap 7 L BUN 10 Creatinine 0.77 Estim Creat Clear Calc 66.2 Estimated GFR > 60 POC Glucose 155 H Fasting Glucose 175 H Calcium 7.8 L Magnesium 1.6 Ammonia 70 H Discharge Plan Discharge Anticipated Discharge Date/Time: 06/20/23 09:22 Patient Disposition: Home Health Service Discharge Diagnosis: hepatic enceph Referrals: Everett Henning MD [Primary Care Provider] - 1 Week Sourav Ku MD [Physician] - 1 Week Discharge Medications: New furosemide 20 mg Tablet 20 mg PO DAILY Qty: 30 0RF Protocol: Hold for SBP< HOLD for SBP < : 90 Continued levothyroxine 75 mcg tablet 75 mcg PO DAILY omeprazole 20 mg capsule,delayed release(DR/EC) 20 mg PO DAILY carbidopa-levodopa 25-100 mg tablet 1 tab PO TID calcium carbonate-vitamin D3 [Oyster Shell Calcium-Vit D3] 500 mg-10 mcg (400 unit) tablet 1 tab PO DAILY gabapentin 300 mg capsule 300 mg PO TID lactulose 20 gram/30 mL Solution 20 g PO BID 30 Days Qty: 1800 0RF spironolactone 50 mg tablet 50 mg PO DAILY Tradjenta 5 mg tablet 5 mg PO DAILY montelukast 10 mg tablet 10 mg PO BEDTIME Discharge Orders: Discharge Order (Routine); Ordered 06/20/23 Ordered By: Nathanael Hwang Diet: Advance to usual diet Activity on Discharge: As tolerated Stand Alone Forms: Patient Portal Discharge page Care Plan Goals: avoid encephaloapthy Health Concerns: cirrhosis Plan of Treatment: start lasix, continue lactulose - titrate dose for 2-3 BM/day Assessment: see above
[2023-06-20 11:20] LABS: Glucose, Whole Blood 256 mg/dL (60-115)
--- NOTE | 2023-06-20 13:01 | P.PNIM_ITS ---
Subjective Subjective Date of Service: 06/20/23 Interval History: more alert Physical Exam 2 Vital Signs: Vital Signs: Last Vital Signs Temp 96.9 F 06/20/23 07:08 Pulse 81 06/20/23 07:08 Resp 16 06/20/23 07:08 BP 129/56 L 06/20/23 07:08 Pulse Ox 99 06/20/23 07:08 O2 Del Method Room Air 06/20/23 07:08 BMI result Body Mass Index 36.2 alert, feeding self, talking, jaundinced, abd soft, no acute distress Objective Data Active Medications Acetaminophen (Acetaminophen Oral Liquid 650 Mg/20.3 Ml Solution) 650 mg PO Q6H PRN PRN Reason: Pain, Mild (Pain Scale 1-3) Calcium Carbonate/Cholecalciferol (Calcium + Vitamin D 250 Mg Tablet) 250 mg PO DAILY [facility] Last Admin: 06/20/23 08:31 Dose: 250 mg Documented By: LAWRENCE Carbidopa/Levodopa (Carbidopa/Levodopa 25/100 Tablet) 1 tab PO TID [facility] Last Admin: 06/20/23 08:31 Dose: 1 tab Documented By: LAWRENCE Dextrose (Dextrose 50 % 25 Gm/50 Ml Syringe) 25 gm IVPUSH Q15M PRN; Protocol PRN Reason: per Hypoglycemia Standing Ord. Docusate Sodium (Docusate Sodium 100 Mg/10 Ml Liquid) 100 mg PO DAILY PRN PRN Reason: Constipation Furosemide (Furosemide 20 Mg Tablet) 20 mg PO DAILY [facility]; Protocol Last Admin: 06/20/23 08:31 Dose: 20 mg Documented By: LAWRENCE Gabapentin (Gabapentin 300 Mg Capsule) 300 mg PO TID [facility] Last Admin: 06/20/23 08:31 Dose: 300 mg Documented By: LAWRENCE Glucose (Glucose Gel 15 Gm Gel..Gram.) 15 gm PO Q15M PRN; Protocol PRN Reason: per Hypoglycemia Standing Ord. Insulin Human Lispro (Insulin Lispro 100 Unit/Ml 3 Ml Vial) 0 unit SUBCUT QIDACHS [facility]; Protocol Last Admin: 06/20/23 11:58 Dose: 6 unit Documented By: LAWRENCE Lactulose (Lactulose 20 Gm/30 Ml Solution) 20 gm PO TID [facility] Last Admin: 06/20/23 08:30 Dose: 20 gm Documented By: LAWRENCE Levothyroxine Sodium (Levothyroxine Sodium 75 Mcg Tablet) 75 mcg PO DAILY@0600 [facility] Last Admin: 06/20/23 05:47 Dose: 75 mcg Documented By: ANTONY Montelukast Sodium (Montelukast Sodium 10 Mg Tablet) 10 mg PO BEDTIME [facility] Last Admin: 06/19/23 20:13 Dose: 10 mg Documented By: ANTONY Omeprazole (Omeprazole/Na Bicarb Oral Susp 20 Mg/10 Ml Ud Cup) 20 mg PO DAILY@0630 [facility] Last Admin: 06/20/23 05:47 Dose: 20 mg Documented By: ANTONY Ondansetron HCl (Ondansetron Hcl 4 Mg/2 Ml Vial) 4 mg IVPUSH Q8H PRN PRN Reason: Nausea and Vomiting Sodium Chloride (0.9 % Sodium Chloride Flush 3 Ml Syringe) 3 ml IVFLUSH QSHIFT [facility] Last Admin: 06/20/23 08:40 Dose: 3 ml Documented By: LAWRENCE Spironolactone (Spironolactone 25 Mg Tablet) 50 mg PO DAILY [facility]; Protocol Last Admin: 06/20/23 08:31 Dose: 50 mg Documented By: LAWRENCE Labs 06/20/23 05:50 06/20/23 05:50 Labs: Laboratory Results - last 24 hr 06/19/23 06/19/23 06/20/23 16:21 20:23 05:50 MCV 104.1 H MCH 34.7 H MCHC 33.3 RDW 16.2 H Plt Count 39 L D MPV 11.4 Absolute Nucleated RBC 0.000 Nucleated RBC % (auto) 0.0 Anion Gap 7 L Estim Creat Clear Calc 66.2 Estimated GFR > 60 POC Glucose 206 H 171 H Fasting Glucose 175 H Calcium 7.8 L Magnesium 1.6 Ammonia 70 H 06/20/23 06/20/23 07:12 11:14 MCV MCH MCHC RDW Plt Count MPV Absolute Nucleated RBC Nucleated RBC % (auto) Anion Gap Estim Creat Clear Calc Estimated GFR POC Glucose 155 H 256 H Fasting Glucose Calcium Magnesium Ammonia Assessment and Plan (1) Acute hepatic encephalopathy: Status: Acute Plan 67F PMH hcv cirrhosis, hypothryoid, dm, parkinsons, hld, presented with ams Acute toxic metabolic encephalopathy due to hepatic encephalopathy in patient with HCV cirrhosis back to baseline, continue lactulose GI following Continue Aldactone and Lasix Acute hypomagnesemia Replaced Diabetes Insulin sliding scale Parkinson's Sinemet Hypothyroid Levothyroxine DVT prophylaxis - mechanical due to thrombocytopenia from cirrhosis Full code Reason for continued hospitalization: palcement Quality Stroke Does the patient have a stroke diagnosis?: No VTE Prior VTE?: No VTE Risk Level:: Medical - moderate - high VTE Device Contraindication: N/A - Device Ordered VTE Drug Contraindication: Treatment Not Indicated
[2023-06-20 15:22] VITALS: BP 138/64; PULSE 89; RESP 18; TEMP 36.6; O2SAT 100
--- NOTE | 2023-06-20 16:19 | PC.NURSE ---
Addendum entered by Eileen Britton RN 06/20/23 16:43: Physical therapy in to see patient, awaiting physical therapy eval. Original Note: Discharge order placed, daughter did not feel comfortable taking patient home without physical therapy seeing patient. Physical therqapy order placed on 06/19 at 1802. On 06/20 physical therapy had still not seen patient. Dr. Hwang made aware. Pt will stay the night on 06/20 until physical therapy sees pt.
[2023-06-20 16:30] LABS: Glucose, Whole Blood 189 mg/dL (60-115)
[2023-06-20 16:53] VITALS: BP 138/64; PULSE 89; O2SAT 100
== END 2023-06-20 20:30 | disposition home health service (06) | DRG 441 ==
LOC: HO.ED 10:46 → HO.EDOVER 11:57 → HO.S3 14:44
PROVIDERS: Admitting Provider Physician Assistant; Emergency Provider Emergency Medicine; PCP Internal Medicine; Visit Provider Internal Medicine
DX: K76.82 Hepatic encephalopathy (principal); G92.8 Other toxic encephalopathy; D61.818 Other pancytopenia; D68.4 Acquired coagulation factor deficiency; R18.8 Other ascites; K74.69 Other cirrhosis of liver; E11.42 Type 2 diabetes mellitus with diabetic polyneuropathy; E03.9 Hypothyroidism, unspecified; G20.A1 Parkinson's disease without dyskinesia, without mention of fluctuations; Z86.19 Personal history of other infectious and parasitic diseases; Z79.4 Long term (current) use of insulin; Z79.890 Hormone replacement therapy; Z79.899 Other long term (current) drug therapy
CPT/HCPCS: 0241U; 36410; 36415; 36558; 70450; 71045; 72125; 74178; 80048; 80053; 80076; 80307; 81001; 81003; 82140; 82550; 82607; 82746; 82803; 82947; 83605; 83690; 83735; 83880; 84425; 84484; 85025; 85027; 85610; 85730; 87040; 87086; 87088; 87186; 93005; 97161; 99285; C1751; C1769; C9113; J0696; J1335; J1642; J2185; J3475; Q9967

== ENCOUNTER → 2023-06-17 11:49 | Outpatient (BNV) | payer MEDICARE, MEDICAID, SELFPAY | PROVIDERS: Admitting Provider Physician Assistant; Emergency Provider Emergency Medicine; PCP Internal Medicine; Visit Provider Physician Assistant | DX: K76.82 Hepatic encephalopathy (principal) | CPT/HCPCS: 99223; 99233; 99239 ==

== ENCOUNTER → 2023-06-17 11:49 | Outpatient (BNV) | payer MEDICARE, MEDICAID, SELFPAY | PROVIDERS: Admitting Provider Physician Assistant; Emergency Provider Emergency Medicine; PCP Internal Medicine; Visit Provider Internal Medicine Gastroenterology | DX: K76.82 Hepatic encephalopathy (principal); K70.30 Alcoholic cirrhosis of liver without ascites | CPT/HCPCS: 99223 ==

== ENCOUNTER 2023-06-23 09:58 | Inpatient (IN) | payer MEDICARE, MEDICAID, SELFPAY ==
[2023-06-23] VITALS (8 sets, daily range): BP systolic 108–142; BP diastolic 41–63; PULSE 99–115; RESP 14–18; TEMP 36.4–37.2; O2SAT 99–100; BMI 28.6; BMI 30.2
--- NOTE | ~2023-06-23 | XR_ITS ---
EXAMINATION: XR CHEST CLINICAL INFORMATION: Unresponsive and weak COMPARISON: 06/17/2023 TECHNIQUE: Frontal view of the chest was obtained. FINDINGS: There are low lung volumes. Pulmonary vascular redistribution is suspected. The cardiac silhouette is magnified by the AP position. XR/XR chest 1V IMPRESSION: Probable pulmonary vascular congestion and redistribution.
--- NOTE | ~2023-06-23 | IR_ITS ---
CLINICAL HISTORY: IV antibiotics. Poor IV access PROCEDURES: 1. Real-time ultrasound guided access into the right internal jugular vein after documentation of selective vessel patency, and permanent imaging storing in the patient records. 2. Placement of a 6 Fr, 22 cm tunneled, dual-lumen power injectable Motley CLINICIAN: Nathan Busby PA-C MEDICATIONS: -Lidocaine 1% 10 ml, SQ. -Additional details, please see nursing flowsheet. Complications: None. Estimated blood loss: <5 ml Specimens: None. Contrast: None. Fluoroscopy time: 0.7 min PROCEDURE NOTE: The procedure, risks, benefits, and alternatives were carefully explained to the patient and written informed consent was obtained. The patient was placed supine on the fluoroscopy table. A timeout was performed. The right neck and chest was prepped and draped in usual sterile fashion. Local anesthesia was administered to the right neck access site with lidocaine. Under ultrasound guidance, the right internal jugular vein was accessed with a 5 fr micropuncture set. A permanent ultrasound picture was saved. A peel-away sheath was advanced over the wire. The catheter was measured and cut to length. Next, subcutaneous lidocaine was administered to the chest. Using blunt dissection, a subcutaneous tunnel was created that connects from the upper chest to the venotomy site. The catheter was pulled through the tunnel. The catheter was advanced through the sheath, which was subsequent peeled away. The catheter was tested, flushed, and sutured to the skin with its tip in the cavoatrial junction. The venotomy site was closed with surgical glue. A dry sterile dressing was applied to the chest and the venotomy site. A permanent chest fluoroscopic image was saved demonstrating the catheter tip in the cavoatrial junction. The patient was stable after the procedure was transferred back to the floor. IR/IR cvc insert central tunnel IMPRESSION: Placement of a tunneled dual-lumen Motley catheter PLAN: -The catheter may be used immediately. This procedure was performed by Nathan Busby PA-C, and supervised by Dr. Sunshine
--- NOTE | ~2023-06-23 | XR_ITS ---
EXAMINATION: XR CHEST CLINICAL INFORMATION: Check NG tube placement COMPARISON: Chest radiograph 06/23/2023 TECHNIQUE: Frontal view of the chest was obtained. FINDINGS: Since the prior study an NG tube has been placed with its tip in the gastric antrum. There is been no other interval change. XR/XR chest 1V IMPRESSION: NG tube with tip in gastric antrum.
--- NOTE | ~2023-06-23 | CT_ITS ---
EXAMINATION: CT ABDOMEN AND PELVIS WITHOUT AND WITH CONTRAST CLINICAL INFORMATION: Hepatic encephalopathy with question of HCC COMPARISON: CT abdomen pelvis 04/14/2023 TECHNIQUE: Multidetector volumetric imaging was performed of the abdomen and pelvis before and after the IV administration of 85 mL of Omnipaque 300 intravenous contrast. Sagittal and coronal reformatted images were obtained on the technologist's workstation. This CT examination was performed using dose optimization techniques as appropriate, variously including the following: *Automated exposure control *Adjustment of mA and/or kV according to patient size (this includes techniques or standardized protocols for targeted exams where dose is matched to indication/reason for exam; i.e. extremities or head) *Use of iterative reconstruction technique DLP: 3048 mGy-cm FINDINGS: LUNG BASES: Atelectasis is present in the posterior basal segment of the left lower lobe which could represent a small area of infiltrate. LIVER, GALLBLADDER, AND BILIARY TREE: Liver is small measuring 10.5 cm in length and is cirrhotic in appearance with a nodular border. No hepatic mass is seen. Of note, the main portal vein appears occluded or at least markedly attenuated (9:41) and there is what seems to be cavernous transformation of the portal vein with serpiginous collaterals in the isamar hepatis. Large varices are present in the gastrohepatic ligament and around the distal esophagus. The splenic vein is patent.. There is no significant recanalization of the umbilical vein. Retroperitoneal varices are also present which drain into the IVC. The gallbladder is not seen. There is ascites present around the liver as well as in the pelvis. PANCREAS: Unremarkable SPLEEN: Spleen is enlarged at 13.8 cm. ADRENAL GLANDS: Unremarkable KIDNEYS AND URETERS: The kidneys are normal in size, shape, and attenuation there is mild bilateral pelvocaliectasis, right greater than left similar to prior. No hydronephrosis, hydroureter, or calculi seen. No perinephric stranding. A benign right lower pole Bosniak class I renal cyst is noted which requires no additional imaging or follow up. No solid renal masses are seen. BLADDER: Unremarkable GASTROINTESTINAL TRACT: The small and large bowel are unremarkable. The appendix is unremarkable. ABDOMINAL WALL: Anasarca is present. No abdominal wall hernias. LYMPH NODES: No retroperitoneal lymphadenopathy. VASCULAR: Please see discussion above regarding portal vein thrombosis and varices. Calcific atherosclerotic changes are present in the aorta and iliac vessels. There is no evidence of an abdominal aortic aneurysm. PELVIC VISCERA: The uterus and adnexa are unremarkable. OSSEOUS STRUCTURES: Degenerative changes are present in the spine with scoliosis. Supra-acetabular sclerotic lesion on the right is unchanged. No bony destructive lesions. CT/CT abdomen pelvis wo/w IV con IMPRESSION: 1. Cirrhotic liver with associated splenomegaly, large varices and ascites. 2. 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 3. No hepatic mass is seen. 4. Other incidental findings as described above including possible left lower lobe infiltrate. Fleischner guidelines were followed.
--- NOTE | ~2023-06-23 | CT_ITS ---
EXAMINATION: CT CERVICAL SPINE WITHOUT CONTRAST CLINICAL INFORMATION: Unresponsive. COMPARISON: None available. TECHNIQUE: 3 mm thin axial and reformatted 2 mm thin sagittal and coronal images of cervical spine were obtained. This CT examination was performed using dose optimization techniques as appropriate, variously including the following: *Automated exposure control *Adjustment of mA and/or kV according to patient size (this includes techniques or standardized protocols for targeted exams where dose is matched to indication/reason for exam; i.e. extremities or head) *Use of iterative reconstruction technique DLP: 1251 mGy-cm FINDINGS: On sagittal reconstructed images there is normal cervical lordosis. The vertebral heights and alignment is normal. There is loss of C5-C6 disc height with ventral and posterior spondylosis. Rest of the disc heights are normal. The craniovertebral junction and C1-C2 alignment is normal. There is mild disc bulge/osteophyte complex C5-C6 disc level without spinal canal stenosis. The neural foramina are patent. Rest the disc levels are unremarkable. The prevertebral and paravertebral soft tissues are normal. The lung apices are clear. The central trachea and the bronchi widely patent. The lung apices are clear. CT/CT cervical spine wo IV con IMPRESSION: Degenerative disc changes with ventral and posterior spondylosis and disc bulge osteophyte complex at the C5-C6 disc level. No spinal canal stenosis. Rest of the cervical spine is unremarkable. Fleischner guidelines were followed.
--- NOTE | ~2023-06-23 | CT_ITS ---
EXAMINATION: CT HEAD WITHOUT CONTRAST CLINICAL INFORMATION: Unresponsive COMPARISON: CT brain of 02/22/2023 TECHNIQUE: Contiguous axial imaging was performed from the skull base to vertex without intravenous administration of contrast. This CT examination was performed using dose optimization techniques as appropriate, variously including the following: *Automated exposure control *Adjustment of mA and/or kV according to patient size (this includes techniques or standardized protocols for targeted exams where dose is matched to indication/reason for exam; i.e. extremities or head) *Use of iterative reconstruction technique DLP: 496.41 mGy-cm FINDINGS: The ventricles and sulci are normal in size and configuration. No acute hemorrhage, mass effect or shift is evident. Alexandra-white differentiation is maintained. In the posterior fossa, the brainstem, cerebellum and fourth ventricle image normally. Left anterior ganglionic Virchow-Eagle space or chronic lacunar infarct is stable. Old left cerebellar lacunar infarct is also unchanged. A partially empty sella turcica is again noted. The orbits are aphakic. The bony calvarium is intact. The paranasal sinuses and mastoid air cells are well pneumatized and clear. CT/CT head/brain wo IV con IMPRESSION: 1. No acute intracranial pathology. No significant change since 02/22/2023.
--- NOTE | 2023-06-23 10:03 | ECG_ITS ---
Test Reason : sepsis Blood Pressure : / mmHG Vent. Rate : 099 BPM Atrial Rate : 099 BPM P-R Int : 128 ms QRS Dur : 082 ms QT Int : 394 ms P-R-T Axes : 044 008 155 degrees QTc Int : 505 ms Normal sinus rhythm Cannot rule out Anterior infarct (cited on or before 23-JUN-2023) Nonspecific ST abnormality Abnormal ECG When compared with ECG of 17-JUN-2023 08:10, Questionable change in initial forces of Anteroseptal leads Referred By: Shyanne Bowen Electronically Signed By:JESSICA SCHMIDT MD
--- NOTE | 2023-06-23 10:47 | ED_ITS ---
HPI - Altered Mental Status General Chief Complaint: Altered Mental Status Stated Complaint: ?SEPSIS,UNRESPONSIVE,BREATHING ADEQUATELY Time Seen by Provider: 06/23/23 10:47 Source: family Mode of arrival: EMS Limitations: no limitations History of Present Illness HPI narrative: 68-year-old female with history of hepatic cirrhosis, history of hepatitis-C, hypothyroidism, zys-cifwzgi-cctcpcavb type 2 diabetes, Parkinson's disease, hyperlipidemia brought to emergency department by ambulance for evaluation of altered mental status. The patient was recently admitted from 06/13/2023 to 06/13 for acute hepatic encephalopathy with ammonia is being as high as 153. Patient was initially treated with lactulose through an NG tube. According to the daughter, since being home with the past 3 days the patient was doing well. She was eating and drinking normally. This morning the patient appeared to be off according to the daughter. The daughter then went to work and when a visiting nurse came in the patient was altered and the patient was then brought to emergency department by ambulance for evaluation. The daughter was concerned that the patient had some red blood on her clothes. Related Data Home Medications Medication Instructions Recorded Confirmed carbidopa 25 mg-levodopa 100 mg 1 tab PO TID 04/21/20 06/17/23 tablet levothyroxine 75 mcg tablet 75 mcg PO DAILY 04/21/20 06/17/23 omeprazole 20 mg capsule,delayed 20 mg PO DAILY 04/21/20 06/17/23 release calcium carbonate 500 mg-vitamin 1 tab PO DAILY 11/09/21 06/17/23 D3 10 mcg (400 unit) tablet (Oyster Shell Calcium-Vitamin D3) montelukast 10 mg tablet 10 mg PO BEDTIME 09/16/22 06/17/23 gabapentin 300 mg capsule 300 mg PO TID 04/15/23 06/17/23 linagliptin 5 mg tablet (Tradjenta) 5 mg PO DAILY 06/17/23 06/17/23 spironolactone 50 mg tablet 50 mg PO DAILY 06/17/23 06/17/23 Previous Rx's Medication Instructions Recorded lactulose 20 gram/30 mL oral 20 g (30 mL) PO BID 30 days #1,800 04/30/23 solution mL furosemide 20 mg tablet 20 mg PO DAILY #30 tabs 06/20/23 Allergies Allergy/AdvReac Type Severity Reaction Status Date / Time aspirin [ASPIRIN] Allergy Intermediate HIVES Verified 04/26/23 13:28 Penicillins [PCN] Allergy Intermediate HIVES Verified 04/26/23 13:28 Review of Systems 2 Review of Systems: Yes all other systems are reviewed and are negative [facility] Past Medical History Medical History Hypothyroidism Lower extremity edema Cirrhosis Thrombocytopenia Cirrhosis Hx of hepatitis C Anemia Hypertension Parkinson disease Diabetes Severe sepsis Surgical History History of tubal ligation History of tonsillectomy History of cholecystectomy History of esophagogastroduodenoscopy (EGD) H/O colonoscopy Hx of lithotripsy History of cystoscopy Family History Family History Daughter Diabetes Daughter Diabetes Brother HTN (hypertension) Social History Social History Household Members: Family and Caregiver Household Members Other:: 6 Housing: House Are you a primary care management specialist to a significant other at home: No Do you presently have visiting nurse or other home services: Yes ([place] per daughter.) Unable to assess alcohol history related to: Unable to respond Alcohol intake: never Patient Tobacco Use Status: Never used Tobacco Second Hand Smoke Exposure: No Advance Directives: Yes Advance Directives on File: Yes Advance Directives Date on File: 02/28/23 service: No Current occupational status: disabled Physical Exam ED Vital Signs: Vital Signs - 24 hr 06/23/23 10:18 Temperature 97.6 F Pulse Rate 99 Respiratory Rate 16 Blood Pressure 138/61 Pulse Oximetry 100 Oxygen Delivery Method Room Air BMI result Body Mass Index 28.6 Vital signs were normal Exam General: Somnolent, not arousable to painful stimuli Head: Normocephalic, atraumatic EENT: PERRL, Lids normal, sclera icteric, conjunctiva normal, nose normal , ears normal, throat without erythema or exudates Lung: breath sounds symmetric, no wheezing, rales or rhonchi Heart: regular rate and rhythm, normal S1, S2 no murmurs or rubs Abdomen: nondistended, diminished bowel sounds Skin: Jaundice Neuro: Somnolent, not arousable to painful stimuli Medical Decision Making Medical Decision Making MDM Narrative: 68-year-old female with history of hepatic cirrhosis, history of hepatitis-C, hypothyroidism, fbk-ocuedoe-qsuioxmub type 2 diabetes, Parkinson's disease, hyperlipidemia brought to emergency department by ambulance for evaluation of altered mental status. The patient was recently admitted from 06/13/2023 to 06/13 for acute hepatic encephalopathy with ammonia is being as high as 153. Vital signs were normal. Patient's examination revealed jaundice anicteric sclera, and unresponsive to painful stimuli. Following evaluation was ordered: CBC, CMP, PT/INR PTT, magnesium, lactic acid, CK, BNP, VBG, urine drug screen, urinalysis, blood cultures x2, chest x-ray, CT scan of the head and cervical spine. 12:57 My interpretation patient's laboratory evaluation is as follows: Pancytopenia with WBC 3800, H&H 9.5 and 27.8, platelet count 03765 with an elevated MCV of 102-these are chronic and unchanged from previous. INR elevated 1.8. Venous pH is elevated at 7.63 with a low pCO2 of 19-this is a metabolic acidosis with respiratory compensation. Sodium low 131. Bicarb low 20. Glucose elevated 226. Lactic acid elevated 2.7-caused by metabolic acidosis from liver failure. Bilirubin elevated 6.4. AST elevated 54. Alk-phos elevated 205. Ammonia elevated 201. NG tube was placed by patient's nurse under my supervision. Tube placement was confirmed by auscultation and aspiration of gastric contents. Placement was also confirmed by chest x-ray and the tube is just beyond the stomach and the duodenum and the nurse was asked to pull the tube back 3 in. The initial aspirate was gastric content, the patient was irrigated with 500 cc of normal saline and small amount of bright red blood was aspirated from the NG tube. Patient will be treated with pantoprazole 40 mg IV for possible gastritis/gastric bleed and this may also explain why the patient's ammonia level may be high. Patient was ordered to get lactulose 30 g through the NG tube. I will discuss admission with the covering hospitalist. Differential Diagnosis Differential Diagnoses: The differential diagnosis associated with the presentation includes Differential diagnosis includes was not limited to pneumonia, stroke, cerebral bleed, upper GI bleed, electrolyte abnormalities, hepatic encephalopathy Admission/Observation Consideration of admission/observation: Escalation of care including admission/observation considered Consult Healthcare Provider Management of the patient was discussed with: Hospitalist Lab Data MDM Lab Attestation statement: I reviewed the patient's lab results. See MDM above 06/23/23 11:08 06/23/23 11:09 Labs: Lab Results 06/23/23 06/23/23 06/23/23 Range/Units 10:42 11:08 11:09 WBC 3.8 L (4.8-10.8) X10*3/uL RBC 2.72 L (4.20-5.50) X10*6/uL Hgb 9.5 L (12.0-16.0) g/dl Hct 27.8 L (37.0-47.0) % MCV 102.2 H (80.0-98.0) fL MCH 34.9 H (27.0-33.0) pg MCHC 34.2 (31.0-35.0) g/dl RDW 16.2 H (11.0-16.0) % Plt Count 65 L D (160-400) X10*3/uL MPV 10.1 (9.4-12.3) fL Immature Gran % (Auto) 1.1 H (0.0-0.4) % Neut % (Auto) 71.7 (45-73) % Lymph % (Auto) 14.1 L (20-40) % [place] % (Auto) 10.7 (2-11) % Eos % (Auto) 1.9 (0-4) % Baso % (Auto) 0.5 (0-2) % Lymph # (Auto) 0.5 L (1.2-4.9) X10*3/uL [place] # (Auto) 0.4 (0.1-1.2) X10*3/uL Eos # (Auto) 0.1 (0.0-0.4) X10*3/uL Baso # (Auto) 0.0 (0.0-0.2) X10*3/uL Abs Immat Gran (auto) 0.04 H (0.00-0.03) X10*3/uL Absolute Neuts (auto) 2.7 (2.0-8.3) x10*3/uL Absolute Nucleated RBC 0.000 (0.0-0.012) X10*3/uL Nucleated RBC % (auto) 0.0 (0.0-0.2) /100WBC PT (11.1-13.3) SEC INR (0.9-1.1) APTT (26.0-36.4) SEC VBG pH (7.32-7.43) VBG pCO2 mmHg VBG pO2 mmHg VBG HCO3 (22-26) mmol/L VBG O2 Saturation % VBG Base Excess mmol/L Sodium 131 L (135-145) mmol/L Potassium 4.7 (3.3-5.1) mmol/L Chloride 107 (96-108) mmol/L Carbon Dioxide 20 L (22-29) mmol/L Anion Gap 9 L (12-20) BUN 10 (9-16) mg/dL Creatinine 0.58 (0.5-1.4) mg/dL Estim Creat Clear Calc 94.4 Estimated GFR > 60 Random Glucose 226 H (60-115) mg/dL Lactic Acid 2.7 H* (0.5-2.0) mmol/L Calcium 7.9 L (8.4-10.2) mg/dL Magnesium 1.7 (1.6-2.6) mg/dL Total Bilirubin 6.4 H (0.0-1.0) mg/dL AST 54 H (5-31) U/L ALT 29 (0-31) U/L Alkaline Phosphatase 205 H (39-117) U/L Ammonia (13-55) umol/L Total Creatine Kinase 95 (26-140) U/L Troponin I High Sens 4.2 (<3.5-17.0) ng/L B-Natriuretic Peptide 75 (<100) pg/mL Total Protein 7.7 (6.5-8.0) g/dL Albumin 1.8 L (3.5-5.0) g/dL Influenza Type A (PCR) NEGATIVE (Negative) Influenza Type B (PCR) NEGATIVE (Negative) RSV RNA Qual (PCR) NEGATIVE (Negative) SARS-CoV-2 RNA (RT-PCR) NEGATIVE (Negative) 06/23/23 06/23/23 Range/Units 11:34 11:39 WBC (4.8-10.8) X10*3/uL RBC (4.20-5.50) X10*6/uL Hgb (12.0-16.0) g/dl Hct (37.0-47.0) % MCV (80.0-98.0) fL MCH (27.0-33.0) pg MCHC (31.0-35.0) g/dl RDW (11.0-16.0) % Plt Count (160-400) X10*3/uL MPV (9.4-12.3) fL Immature Gran % (Auto) (0.0-0.4) % Neut % (Auto) (45-73) % Lymph % (Auto) (20-40) % [place] % (Auto) (2-11) % Eos % (Auto) (0-4) % Baso % (Auto) (0-2) % Lymph # (Auto) (1.2-4.9) X10*3/uL [place] # (Auto) (0.1-1.2) X10*3/uL Eos # (Auto) (0.0-0.4) X10*3/uL Baso # (Auto) (0.0-0.2) X10*3/uL Abs Immat Gran (auto) (0.00-0.03) X10*3/uL Absolute Neuts (auto) (2.0-8.3) x10*3/uL Absolute Nucleated RBC (0.0-0.012) X10*3/uL Nucleated RBC % (auto) (0.0-0.2) /100WBC PT 22.5 H (11.1-13.3) SEC INR 1.8 H (0.9-1.1) APTT 33.9 D (26.0-36.4) SEC VBG pH 7.63 H* (7.32-7.43) VBG pCO2 19 mmHg VBG pO2 201 mmHg VBG HCO3 20 L (22-26) mmol/L VBG O2 Saturation 100.0 % VBG Base Excess 0.9 mmol/L Sodium (135-145) mmol/L Potassium (3.3-5.1) mmol/L Chloride (96-108) mmol/L Carbon Dioxide (22-29) mmol/L Anion Gap (12-20) BUN (9-16) mg/dL Creatinine (0.5-1.4) mg/dL Estim Creat Clear Calc Estimated GFR Random Glucose (60-115) mg/dL Lactic Acid (0.5-2.0) mmol/L Calcium (8.4-10.2) mg/dL Magnesium (1.6-2.6) mg/dL Total Bilirubin (0.0-1.0) mg/dL AST (5-31) U/L ALT (0-31) U/L Alkaline Phosphatase (39-117) U/L Ammonia 201 H (13-55) umol/L Total Creatine Kinase (26-140) U/L Troponin I High Sens (<3.5-17.0) ng/L B-Natriuretic Peptide (<100) pg/mL Total Protein (6.5-8.0) g/dL Albumin (3.5-5.0) g/dL Influenza Type A (PCR) (Negative) Influenza Type B (PCR) (Negative) RSV RNA Qual (PCR) (Negative) SARS-CoV-2 RNA (RT-PCR) (Negative) Independent Interpretation I performed an independent interpretation of an: EKG and Plain X-Ray Interpretation: My independent interpretation of the patient's 12 EKG done at 10:24 hours is as follows: Normal sinus rhythm with a rate of 99, normal HI interval, QRS duration, elevated QTC interval 505 milliseconds, nonspecific T-wave abnormalities, no ST segment elevation, no ST segment depression, no PACs, no PVCs. My independent interpretation patient's chest x-ray one view increased interstitial markings bilaterally, no infiltrates. My independent interpretation of the patient's chest x-ray one view after NG placement is as follows: NG tube is just beyond the stomach Radiology Impression Discussion of test interpretation with radiology: I have reviewed the radiologist's reading. Radiologist Impression: XR chest 1V IMPRESSION: Probable pulmonary vascular congestion and redistribution. Dictated By: Tigre Segura MD Independent Historian Clinical information obtained from an independent historian. History obtained from or confirmed by: Other (Daughters) External Record Review External record reviewed: Inpatient record Chronic Conditions Patient?s care impacted by: Diabetes and Other (Liver cirrhosis) Critical Care Time Critical Care Time Critical Care Time: Yes Total Critical Care Time: 45 Attestation: Critical Care: The patient was critically ill with a high probability of imminent or life threatening deterioration. I spent greater than 30 minutes of discontinuous time evaluating the patient,delivering critical care at the bedside, discussing and evaluating pertinent data with consultants. Critical care time does not include time spent performing separately billable procedures or teaching. Total time spent performing critical care was 45 minutes. Discharge Plan Discharge Prescriptions: No Action levothyroxine 75 mcg tablet 75 mcg PO DAILY omeprazole 20 mg capsule,delayed release(DR/EC) 20 mg PO DAILY carbidopa-levodopa 25-100 mg tablet 1 tab PO TID calcium carbonate-vitamin D3 [Oyster Shell Calcium-Vit D3] 500 mg-10 mcg (400 unit) tablet 1 tab PO DAILY gabapentin 300 mg capsule 300 mg PO TID lactulose 20 gram/30 mL Solution 20 g PO BID 30 Days Qty: 1800 0RF spironolactone 50 mg tablet 50 mg PO DAILY Tradjenta 5 mg tablet 5 mg PO DAILY furosemide 20 mg Tablet 20 mg PO DAILY Qty: 30 0RF Protocol: Hold for SBP< HOLD for SBP < : 90 montelukast 10 mg tablet 10 mg PO BEDTIME
[2023-06-23 11:16] LABS: MANUAL DIFF FLAG NO
[2023-06-23 11:19] LABS: Basophils Percent Auto 0.5 % (0-2); Eosinophils Absolute Auto 0.1 X10*3/uL (0.0-0.4); Eosinophils Percent Auto 1.9 % (0-4); Hematocrit 27.8 % (37.0-47.0); Hemoglobin 9.5 g/dl (12.0-16.0); Imm Gran Abs Auto 0.04 X10*3/uL (0.00-0.03); Imm Gran Pct Auto 1.1 % (0.0-0.4); Lymphocytes Absolute Auto 0.5 X10*3/uL (1.2-4.9); Lymphocytes Percent Auto 14.1 % (20-40); Mean Corpuscular HGB Conc 34.2 g/dl (31.0-35.0); Mean Corpuscular Hemoglobin 34.9 pg (27.0-33.0); Mean Corpuscular Volume 102.2 fL (80.0-98.0); Mean Platelet Volume 10.1 fL (9.4-12.3); Monocytes Absolute Auto 0.4 X10*3/uL (0.1-1.2); Monocytes Percent Auto 10.7 % (2-11); Neutrophils Absolute Auto 2.7 x10*3/uL (2.0-8.3); Neutrophils Percent Auto 71.7 % (45-73); Red Blood Count 2.72 X10*6/uL (4.20-5.50); Red Cell Distribution Width 16.2 % (11.0-16.0); White Blood Count 3.8 X10*3/uL (4.8-10.8)
--- NOTE | 2023-06-23 11:22 | PC.NURSE ---
coming from home for decreased responsiveness and altered mental status. per family, patient was awake and talking yesterday and earlier this morning. has been taking her lactulose and having regular bowel movements. at this time, patient's oxygen remains 100% with even and unlabored respirations. patient appears to be drooling at this time, unable to arouse patient even with painful stimuli. vitals remain stable. patient is difficult IV/lab stick, multiple attempts done. family remains at bedside. taken for CT scan at this time.
[2023-06-23 11:33] LABS: Lactic Acid 2.7 mmol/L (0.5-2.0)
[2023-06-23 11:37] LABS: Influenza A PCR NEGATIVE (Negative); Influenza B PCR NEGATIVE (Negative); Resp Syncy Virus RNA Qual PCR NEGATIVE (Negative); SARS COV2 PCR INHOUSE NEGATIVE (Negative)
[2023-06-23 11:40] LABS: Platelet Count 65 X10*3/uL (160-400)
[2023-06-23 11:42] LABS: Troponin-I High Sensitivity 4.2 ng/L (<3.5-17.0)
[2023-06-23 11:44] LABS: Anion Gap 9 (12-20)
[2023-06-23 11:50] LABS: Alanine Aminotransferase 29 U/L (0-31); Albumin Level 1.8 g/dL (3.5-5.0); Alkaline Phosphatase 205 U/L (39-117); Aspartate Amino Transferase 54 U/L (5-31); Bilirubin Total 6.4 mg/dL (0.0-1.0); Blood Urea Nitrogen 10 mg/dL (9-16); Calcium 7.9 mg/dL (8.4-10.2); Carbon Dioxide 20 mmol/L (22-29); Chloride 107 mmol/L (96-108); Creatinine Clr Calc Pharmacy 94.4; Estimated Glomerular Filt Rate > 60; Glucose Random 226 mg/dL (60-115); Magnesium 1.7 mg/dL (1.6-2.6); Potassium 4.7 mmol/L (3.3-5.1); Sodium 131 mmol/L (135-145); Total Protein 7.7 g/dL (6.5-8.0)
[2023-06-23 11:51] LABS: VBG Base Excess 0.9 mmol/L; VBG HCO3 20 mmol/L (22-26); VBG pCO2 19 mmHg; VBG pH 7.63 (7.32-7.43); VBG pO2 201 mmHg
[2023-06-23 11:53] LABS: Ammonia 201 umol/L (13-55); Venous Blood Gas Refer to POC result
[2023-06-23 11:56] LABS: INTERNATIONAL NORM RATIO 1.8 (0.9-1.1); Prothrombin Time 22.5 SEC (11.1-13.3)
[2023-06-23 11:59] LABS: Partial Thromboplastin Time 33.9 SEC (26.0-36.4)
[2023-06-23 12:10] LABS: B Type Natriuretic Peptide 75 pg/mL (<100)
[2023-06-23] MEDS: Lactulose 20 GM/30 ML SOLUTION 30 GM NG-TUBE ×3 (13:02→20:48)
[2023-06-23] MEDS: Pantoprazole Sodium 40 MG/10 ML VIAL IVPUSH (13:02)
[2023-06-23 13:14] LABS: Reflex Lactate? Lactic Acid Added
--- NOTE | 2023-06-23 14:50 | PM.IMHP ---
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 The daughter provided history, stating that her mother was getting little weaker and confused over the last few days but worst this morning as she went to bed last night fairly ok and could not wake her up this morning. Denies any complaints, pain, fever, chills, cough or abdominal pain. She was taking her Lactulose as scheduled with 2-3 bowel movements daily, firm. Found to have elevated Ammonia of 200 in ED. NG tube placed and started on Lactulose. Admitted for further evaluation and treatment. Review of Systems Review of Systems: Yes Unobtainable due to mental status PMFSH Medical History Hypothyroidism Lower extremity edema Cirrhosis Thrombocytopenia Cirrhosis Hx of hepatitis C Anemia Hypertension Parkinson disease Diabetes Severe sepsis Family History Daughter Diabetes Daughter Diabetes Brother HTN (hypertension) Surgical History History of tubal ligation History of tonsillectomy History of cholecystectomy History of esophagogastroduodenoscopy (EGD) H/O colonoscopy Hx of lithotripsy History of cystoscopy Social History Household Members: Family and Caregiver Household Members Other:: 6 Housing: House Are you a primary critical care rn to a significant other at home: No Do you presently have visiting nurse or other home services: Yes (Gregory per daughter.) Unable to assess alcohol history related to: Unable to respond Alcohol intake: never Patient Tobacco Use Status: Never used Tobacco Second Hand Smoke Exposure: No Advance Directives: Yes Advance Directives on File: Yes Advance Directives Date on File: 02/28/23 service: No Current occupational status: disabled Meds Allergies Allergy/AdvReac Type Severity Reaction Status Date / Time aspirin [ASPIRIN] Allergy Intermediate HIVES Verified 04/26/23 13:28 Penicillins [PCN] Allergy Intermediate HIVES Verified 04/26/23 13:28 Active Medications: Current Medications Sodium Chloride (Ns) 1,000 mls @ 125 mls/hr IV .Q8H STA Stop: 06/23/23 20:29 Home Medications Medication Instructions Recorded Confirmed Last Taken Type carbidopa 25 mg-levodopa 100 mg 1 tab PO TID 04/21/20 06/17/23 06/16/23 History tablet levothyroxine 75 mcg tablet 75 mcg PO DAILY 04/21/20 06/17/23 06/16/23 History omeprazole 20 mg capsule,delayed 20 mg PO DAILY 04/21/20 06/17/23 06/16/23 History release calcium carbonate 500 mg-vitamin 1 tab PO DAILY 11/09/21 06/17/23 06/16/23 History D3 10 mcg (400 unit) tablet (Oyster Shell Calcium-Vitamin D3) montelukast 10 mg tablet 10 mg PO BEDTIME 09/16/22 06/17/23 06/16/23 History gabapentin 300 mg capsule 300 mg PO TID 04/15/23 06/17/23 06/16/23 History linagliptin 5 mg tablet (Tradjenta) 5 mg PO DAILY 06/17/23 06/17/23 06/16/23 History spironolactone 50 mg tablet 50 mg PO DAILY 06/17/23 06/17/23 06/16/23 History Physical Exam Vital Signs and Narrative: Vital Signs: Last Vital Signs Temp 97.6 F 06/23/23 10:18 Pulse 99 06/23/23 10:18 Resp 16 06/23/23 10:18 BP 138/61 06/23/23 10:18 Pulse Ox 100 06/23/23 10:18 O2 Del Method Room Air 06/23/23 10:18 BMI result Body Mass Index 28.6 Const: Other: Constitutional : altered mentation, not in distress Neck : Normal inspection, Supple Cardiovascular : RRR, no JVP, no lower extremity edema Respiratory : good bilateral air entry, no crackles, wheezes or rhonchi Gastrointestinal: soft, lax, Normal bowel sounds, Non tender, NG tube in place Skin : Warm, Dry Neurological : GCS 8, altered and obtunded, No focal deficit Results Labs 06/23/23 11:08 06/23/23 11:09 Labs: Laboratory Results - last 24 hr 06/23/23 06/23/23 06/23/23 10:42 11:08 11:09 MCV 102.2 H MCH 34.9 H MCHC 34.2 RDW 16.2 H Plt Count 65 L D MPV 10.1 Immature Gran % (Auto) 1.1 H Neut % (Auto) 71.7 Lymph % (Auto) 14.1 L Jefferson % (Auto) 10.7 Eos % (Auto) 1.9 Baso % (Auto) 0.5 Lymph # (Auto) 0.5 L Jefferson # (Auto) 0.4 Eos # (Auto) 0.1 Baso # (Auto) 0.0 Abs Immat Gran (auto) 0.04 H Absolute Neuts (auto) 2.7 Absolute Nucleated RBC 0.000 Nucleated RBC % (auto) 0.0 PT INR APTT VBG pH VBG pCO2 VBG pO2 VBG HCO3 VBG O2 Saturation VBG Base Excess Anion Gap 9 L Estim Creat Clear Calc 94.4 Estimated GFR > 60 Random Glucose 226 H Lactic Acid 2.7 H* Calcium 7.9 L Magnesium 1.7 Total Bilirubin 6.4 H AST 54 H ALT 29 Alkaline Phosphatase 205 H Ammonia Total Creatine Kinase 95 B-Natriuretic Peptide 75 Total Protein 7.7 Albumin 1.8 L Influenza Type A (PCR) NEGATIVE Influenza Type B (PCR) NEGATIVE RSV RNA Qual (PCR) NEGATIVE SARS-CoV-2 RNA (RT-PCR) NEGATIVE 06/23/23 06/23/23 11:34 11:39 MCV MCH MCHC RDW Plt Count MPV Immature Gran % (Auto) Neut % (Auto) Lymph % (Auto) Jefferson % (Auto) Eos % (Auto) Baso % (Auto) Lymph # (Auto) Jefferson # (Auto) Eos # (Auto) Baso # (Auto) Abs Immat Gran (auto) Absolute Neuts (auto) Absolute Nucleated RBC Nucleated RBC % (auto) PT 22.5 H INR 1.8 H APTT 33.9 D VBG pH 7.63 H* VBG pCO2 19 VBG pO2 201 VBG HCO3 20 L VBG O2 Saturation 100.0 VBG Base Excess 0.9 Anion Gap Estim Creat Clear Calc Estimated GFR Random Glucose Lactic Acid Calcium Magnesium Total Bilirubin AST ALT Alkaline Phosphatase Ammonia 201 H Total Creatine Kinase B-Natriuretic Peptide Total Protein Albumin Influenza Type A (PCR) Influenza Type B (PCR) RSV RNA Qual (PCR) SARS-CoV-2 RNA (RT-PCR) Imaging Radiologist's Impressions: Impressions Chest X-Ray 06/23/23 10:20 IMPRESSION: Probable pulmonary vascular congestion and redistribution. Chest X-Ray 06/23/23 12:45 IMPRESSION: NG tube with tip in gastric antrum. Cervical Spine CT 06/23/23 13:12 IMPRESSION: Degenerative disc changes with ventral and posterior spondylosis and disc bulge osteophyte complex at the C5-C6 disc level. No spinal canal stenosis. Rest of the cervical spine is unremarkable. Fleischner guidelines were followed. Head CT 06/23/23 13:12 IMPRESSION: 1. No acute intracranial pathology. No significant change since 02/22/2023. 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 Acute toxic metabolic encephalopathy due to hepatic encephalopathy in patient with HCV cirrhosis Ammonia of >200 NG tube placed Lactulose TID w goal of 3-4 BM daily Empirical Ceftriaxone GI consult Continue Aldactone and Lasix Acute Hyponatremia related to liver cirrhosis Monitor BMP Lactic acidosis No clear source of infection, not due to sepsis likely type II LA repeat Hyperglycemia in Diabetes Insulin sliding scale Parkinson's Sinemet Hypothyroid Levothyroxine DVT prophylaxis - mechanical due to thrombocytopenia from cirrhosis Full code The patient will need 2 overnight hospital stay for treatment of encephalopathy and hyponatremia pending clinical response Quality Stroke Does the patient have a stroke diagnosis?: No VTE Prior VTE?: No VTE Risk Level:: Medical - moderate - high VTE Device Contraindication: N/A - Device Ordered VTE Drug Contraindication: Treatment Not Indicated
[2023-06-23 15:57] LABS: ~Lactic Acid-LAB USE ONLY 5.3 mmol/L (0.5-2.0)
--- NOTE | 2023-06-23 16:15 | PC.NURSE ---
NG tube placed by this RN and provider at bedside, placement was confirmed by auscultation and aspiration of gastric contents.
[2023-06-23 16:56] LABS: Reflex Lactate? 2 Y
--- NOTE | 2023-06-23 17:31 | PHA.MEDREC ---
Pharmacy Consult ? Medication Reconciliation Pharmacy has completed the medication reconciliation. Spoke with patients family members (I believe it was daughter and son). Of NOTE: family could not recall if patient is to be on Acarbose, I chose to leave in the med rec as patient just recently picked up a 90 day supply.
[2023-06-23 17:47] LABS: ~Lactic Acid-LAB USE ONLY 6.2 mmol/L (0.5-2.0)
[2023-06-23] MEDS: 0.9 % Sodium Chloride 1,000 ML 125 ML IV (17:59)
--- NOTE | 2023-06-23 17:59 | PC.NURSE ---
delay in medication of fluids d/t no access to pumps in the department or in the storage unit. fluids infusing at this time.
[2023-06-23] MEDS: cefTRIAXone sodium 1 GM in 0.9 % Sodium Chloride 50 ML IV (18:21)
[2023-06-23 18:31] LABS: Appearance Urine Turbid; Color Urine Dark Yellow; Glucose Urine UA Negative (Negative); Leukocyte Esterase Urine Moderate (2+) (Negative); Nitrite Urine Negative (Negative); Specific Gravity - Urine 1.025 (1.005-1.025); UMIC TRIGGER UACC YES; Urine Blood Small (1+) (Negative); Urine Ketones Trace mg/dL (Negative); Urine Protein Trace mg/dL (Neg-Trace)
[2023-06-23 18:36] LABS: Bacteria Urine 4+ (None Seen); Hyaline Casts Urine 0-2 /LPF (0-2); Squamous Epithelial Cell Urine 0-2 /HPF (0-2); UACC Culture Trigger YES; WBC Urine >50 /HPF (0-5)
[2023-06-23 18:47] LABS: Amphetamine Screen Urine Not Detected (Not Detect); Barbiturates, Urine Not Detected (Not Detect); Benzodiazepines Screen Urine Not Detected (Not Detect); Cannabinoid Screen Urine Not Detected (Not Detect); Cocaine Screen Urine Not Detected (Not Detect); Fentanyl, urine Not Detected (Not Detect); Opiate Screen Urine Not Detected (Not Detect); Phencyclidine Screen Urine Not Detected (Not Detect)
[2023-06-23 20:59] LABS: Glucose, Whole Blood 222 mg/dL (60-115)
[2023-06-24] VITALS: BP 133/62; PULSE 113; RESP 18; TEMP 36.9; O2SAT 99
[2023-06-24 04:00] VITALS: BP 131/61; PULSE 106; RESP 18; TEMP 37.6; O2SAT 98
--- NOTE | 2023-06-24 05:50 | PC.NURSE ---
Paged last night @ 20:56, pt POC was 222 but pt NPO and no insulin coverage ordered. Per ok to hold insulin overnight.
[2023-06-24 07:12] VITALS: BP 130/58; PULSE 107; RESP 18; TEMP 37; O2SAT 98
[2023-06-24 08:01] LABS: Glucose, Whole Blood 157 mg/dL (60-115)
--- NOTE | 2023-06-24 08:08 | P.CDIM_ITS ---
PROVIDER RESPONSE TEXT: To clarify, the appropriate diagnosis supported by the clinical indicators: Acute QUERY TEXT: PHYSICIAN'S DOCUMENTATION REQUEST Date of Query: 06/24/2023 07:51 AM EST Patient Name: Meena Epstein Admit Date: 06/23/2023 Dear Adnrew Sol, A review of the medical record indicates additional documentation may be needed. Please review below and update the documentation accordingly. Clinical Indicators: H&P: Lactic acidosis, no clear source of infection, not due to sepsis. LA 5.3 / 6.2 H Clarify which of the following accurately represents the acuity of the Lactic acidosis: Acute Acute on chronic Other (explain) Clinically unable to determine (explain) Thank you, Steffany Jimenez, CCS, CDIS Use of terms such as suspected, likely, concern for, or probable (associated with a specific diagnosi s that is being evaluated, monitored, or treated as if it exists) are acceptable and can be coded in the inpatient se tting, when documented at the time of discharge. Please use your independent medical judgment in providing your response. THIS QUERY IS PART OF THE PERMANENT MEDICAL RECORD
--- NOTE | 2023-06-24 08:08 | P.CDIM_ITS ---
PROVIDER RESPONSE TEXT: To clarify, the appropriate diagnosis supported by the clinical indicators: Pancytopenia QUERY TEXT: PHYSICIAN'S DOCUMENTATION REQUEST Date of Query: 06/24/2023 07:43 AM EST Patient Name: Meena Epstein Admit Date: 06/23/2023 Dear Andrew Sol, A review of the medical record indicates additional documentation may be needed. Please review below and update the documentation accordingly. Clinical Indicators: WBC 3.8 L RBC 2.72 L PLT 65 L ED: Narrative - My interpretation patient's laboratory evaluation is as follows: Pancytopenia with WB C 3800, platelet count [id number] with an elevated MCV of 102. These are chronic and unchanged from previous. Based on the above, is there a diagnosis that correlates with these lab findings: Pancytopenia Other Other (explain) Clinically unable to determine (explain) Thank you, Steffany Jimenez, CCS, CDIS Use of terms such as suspected, likely, concern for, or probable (associated with a specific diagnosi s that is being evaluated, monitored, or treated as if it exists) are acceptable and can be coded in the inpatient se tting, when documented at the time of discharge. Please use your independent medical judgment in providing your response. THIS QUERY IS PART OF THE PERMANENT MEDICAL RECORD
[2023-06-24] MEDS: Insulin Lispro 100 UNIT/ML 3 ML VIAL SUBCUT ×3 (08:12→21:05)
[2023-06-24] MEDS: Lactulose 20 GM/30 ML SOLUTION 30 GM NG-TUBE ×2 (08:13→21:05)
[2023-06-24] MEDS: 0.9 % Sodium Chloride Flush 3 ML SYRINGE IVFLUSH ×3 (08:23→21:06)
[2023-06-24 10:18] LABS: Hematocrit 27.3 % (37.0-47.0); Mean Corpuscular Hemoglobin 35.2 pg (27.0-33.0); Mean Corpuscular Volume 106.6 fL (80.0-98.0); Mean Platelet Volume 10.6 fL (9.4-12.3); Red Blood Count 2.56 X10*6/uL (4.20-5.50); White Blood Count 7.1 X10*3/uL (4.8-10.8)
[2023-06-24 10:19] LABS: Platelet Count 61 X10*3/uL (160-400)
[2023-06-24 10:50] LABS: Anion Gap 9 (12-20); Blood Urea Nitrogen 13 mg/dL (9-16); Calcium 8.2 mg/dL (8.4-10.2); Carbon Dioxide 20 mmol/L (22-29); Chloride 114 mmol/L (96-108); Estimated Glomerular Filt Rate > 60; Glucose Random 175 mg/dL (60-115); Potassium 3.7 mmol/L (3.3-5.1); Sodium 139 mmol/L (135-145)
[2023-06-24 11:07] VITALS: BP 128/60; PULSE 102; RESP 18; TEMP 37; O2SAT 99
--- NOTE | 2023-06-24 11:29 | MHC.CM.PN ---
IMM 06/24. Pt lives at home with her daughter/HCP Yakelin ([phone]), son-in-law, and 2 grandchildren. Pt was active with [facility] and had [facility] services 5hrs/day, 2hr/hs. Pt uses a walker and a wheelchair. Pts daughter will transport her home if return home, BLS if STR. Pts daughter is concerned with her ability to care for her mother as her needs are increasing. Pts daughter would like her would like pt to get STR with the plan to return home, she prefers [facility]. PCP: Dr. Everett Ng
--- NOTE | 2023-06-24 11:53 | MHC.CLN ---
NUTRITION PATIENT WITH OSVALDO SCORE=12. NO SKIN ISSUES NOTED. DIET=CLEAR LIQUIDS. NO ADDITIONAL NUTRITION INTERVENTIONS AT THIS TIME.
[2023-06-24 12:18] LABS: Glucose, Whole Blood 147 mg/dL (60-115)
--- NOTE | 2023-06-24 12:28 | HO.PM.IMPN ---
Subjective Subjective Date of Service: 06/24/23 Interval History: Seen and evaluated More alert , still lethargic asking for food No overnight events Review of Systems Review of Systems: Yes all other systems are reviewed and are negative Physical Exam Vital Signs: Vital Signs: Last Vital Signs Temp 98.6 F 06/24/23 11:07 Pulse 102 H 06/24/23 11:07 Resp 18 06/24/23 11:07 BP 128/60 06/24/23 11:07 Pulse Ox 99 06/24/23 11:07 O2 Del Method Room Air 06/24/23 11:07 BMI result Body Mass Index 30.2 Const: Other: Constitutional : alert, frail, not in distress Neck : Normal inspection, Supple Cardiovascular : RRR, no JVP, trace lower extremity edema Respiratory : good bilateral air entry, no crackles, wheezes or rhonchi Gastrointestinal: soft, lax, Normal bowel sounds, Non tender, NG tube in place Skin : Warm, Dry Neurological : alert but week, disoriented, No focal deficit Objective Data Active Medications Ceftriaxone Sodium 1 gm/ (Sodium Chloride) 50 mls @ 100 mls/hr IV Q24H [facility] Last Infusion: 06/23/23 19:27 Dose: Infused Documented By: TALAT Insulin Human Lispro (Insulin Lispro 100 Unit/Ml 3 Ml Vial) 0 unit SUBCUT QIDACHS [facility]; Protocol Last Admin: 06/24/23 08:12 Dose: 2 unit Documented By: KALYANI Comments: 157 Lactulose (Lactulose 20 Gm/30 Ml Solution) 30 gm NG-TUBE TID [facility] Last Admin: 06/24/23 08:13 Dose: 30 gm Documented By: KALYANI Ondansetron HCl (Ondansetron Hcl 4 Mg/2 Ml Vial) 4 mg IVPUSH Q8H PRN PRN Reason: Nausea and Vomiting Sodium Chloride (0.9 % Sodium Chloride Flush 3 Ml Syringe) 3 ml IVFLUSH QSHIFT [facility] Last Admin: 06/24/23 08:23 Dose: 3 ml Documented By: KALYANI Labs 06/24/23 09:38 06/24/23 09:38 Labs: Laboratory Results - last 24 hr 06/23/23 06/23/23 06/23/23 14:53 17:10 18:21 MCV MCH MCHC RDW Plt Count MPV Absolute Nucleated RBC Nucleated RBC % (auto) Anion Gap Estim Creat Clear Calc Estimated GFR POC Glucose Random Glucose Lactic Acid F/U @ 2Hr 5.3 H* Lactic Acid F/U @ 4Hr 6.2 H* Calcium Urine Color Dark Yellow Urine Appearance Turbid Urine pH 6.0 Ur Specific [place] 1.025 Urine Protein Trace Urine Glucose (UA) Negative Urine Ketones Trace Urine Blood Small (1+) H Urine Nitrite Negative Ur Leukocyte Esterase Moderate (2+) H Urine RBC 6-10 H Urine WBC >50 H Ur Squamous Epith Cells 0-2 Urine Bacteria 4+ Hyaline Casts 0-2 Urine Opiates Screen Not Detected Urine Fentanyl Screen Not Detected Ur Barbiturates Screen Not Detected Ur Phencyclidine Scrn Not Detected Ur Amphetamines Screen Not Detected U Benzodiazepines Scrn Not Detected Urine Cocaine Screen Not Detected U Marijuana (THC) Screen Not Detected 06/23/23 06/24/23 06/24/23 20:45 07:50 09:38 MCV 106.6 H MCH 35.2 H MCHC 33.0 RDW 17.0 H Plt Count 61 L MPV 10.6 Absolute Nucleated RBC 0.000 Nucleated RBC % (auto) 0.0 Anion Gap 9 L Estim Creat Clear Calc 97.0 Estimated GFR > 60 POC Glucose 222 H 157 H Random Glucose 175 H Lactic Acid F/U @ 2Hr Lactic Acid F/U @ 4Hr Calcium 8.2 L Urine Color Urine Appearance Urine pH Ur Specific [place] Urine Protein Urine Glucose (UA) Urine Ketones Urine Blood Urine Nitrite Ur Leukocyte Esterase Urine RBC Urine WBC Ur Squamous Epith Cells Urine Bacteria Hyaline Casts Urine Opiates Screen Urine Fentanyl Screen Ur Barbiturates Screen Ur Phencyclidine Scrn Ur Amphetamines Screen U Benzodiazepines Scrn Urine Cocaine Screen U Marijuana (THC) Screen 06/24/23 11:53 MCV MCH MCHC RDW Plt Count MPV Absolute Nucleated RBC Nucleated RBC % (auto) Anion Gap Estim Creat Clear Calc Estimated GFR POC Glucose 147 H Random Glucose Lactic Acid F/U @ 2Hr Lactic Acid F/U @ 4Hr Calcium Urine Color Urine Appearance Urine pH Ur Specific [place] Urine Protein Urine Glucose (UA) Urine Ketones Urine Blood Urine Nitrite Ur Leukocyte Esterase Urine RBC Urine WBC Ur Squamous Epith Cells Urine Bacteria Hyaline Casts Urine Opiates Screen Urine Fentanyl Screen Ur Barbiturates Screen Ur Phencyclidine Scrn Ur Amphetamines Screen U Benzodiazepines Scrn Urine Cocaine Screen U Marijuana (THC) Screen Assessment and Plan (1) Acute hepatic encephalopathy: Status: Acute (2) Decompensated hepatic cirrhosis: Status: Acute (3) Acute lactic acidosis: Status: Acute (4) Acute hyponatremia: Status: Acute Plan A 68 years old lady with PMH of Cirrhosis 2/2 Hep C, DM 2, Parkinson disease, HLD among others who presents to the hospital from home with AMS. Acute toxic metabolic encephalopathy due to hepatic encephalopathy in patient with HCV cirrhosis improving NG tube removed Lactulose TID w goal of 3-4 BM daily Add Rifaximin Empirical Ceftriaxone GI consult Continue Aldactone and Lasix Acute Hyponatremia resolved Monitor BMP Lactic acidosis not due to sepsis likely type II LA from liver failure Hyperglycemia in Diabetes Insulin sliding scale Parkinson's Sinemet Hypothyroid Levothyroxine DVT prophylaxis - mechanical due to thrombocytopenia from cirrhosis Full code The patient will need overnight hospital stay for treatment of encephalopathy and hyponatremia pending clinical response Quality Stroke Does the patient have a stroke diagnosis?: No VTE Prior VTE?: No VTE Risk Level:: Medical - moderate - high VTE Device Contraindication: N/A - Device Ordered VTE Drug Contraindication: Treatment Not Indicated
--- NOTE | 2023-06-24 14:27 | PC.NURSE ---
PT was drowsy this am and difficult to arouse. Am medications given to patient through G-Tube. Patient became more abusable as the day went on and was able to communicate Patient advocate present during swallow evaluation and able to translate. Patient passed swallow evaluation, Dr notified and NG tube removed. PT ate 100% of clear lazaro for lunch. Patient has remained in bed this shift. Patient incontinent of urine and changed as needed.
--- NOTE | 2023-06-24 15:25 | P.CNGI_ITS ---
History of Present Illness Data of Consult Service Date: 06/24/23 Requesting physician: Andrew Sol Primary Care Provider: Everett Ng MD HPI Reason for consult: Hepatic encephalopathy 68 year old Afghan speaking femal with Cirrhosis 2/2 Hep C and NOVA, DM 2, Parkinson disease, HLD admitted to [facility] on 06/23/23 with AMS. Pt is known to me from past GI clinic visits The daughter provided history, stating that her mother was getting little weaker and confused over the last few days but worst this morning as she went to bed last night fairly ok and could not wake her up this morning. Per daughter pt hs had 7 admissions with similar episodes over last several month Denies any complaints, pain, fever, chills, cough or abdominal pain. She was taking her Lactulose as scheduled with 2-3 bowel movements daily, firm. Found to have elevated Ammonia of 200 in ED. NG tube placed and started on Lactulose and admitted for further evaluation and treatment. Today patient's mental status has improved and she is more awake though still a little confused. Review of Systems 2 Review of Systems: Yes Unobtainable due to mental status Neurologic: Reports confusion Psychiatric: Psychiatric: Reports confusion PMFSH Past Medical History Medical History Hypothyroidism Lower extremity edema Cirrhosis Thrombocytopenia Cirrhosis Hx of hepatitis C Anemia Hypertension Parkinson disease Diabetes Severe sepsis Family History Family History Daughter Diabetes Daughter Diabetes Brother HTN (hypertension) Surgical History Surgical History History of tubal ligation History of tonsillectomy History of cholecystectomy History of esophagogastroduodenoscopy (EGD) H/O colonoscopy Hx of lithotripsy History of cystoscopy Social History Social History Household Members: Children Household Members Other:: 6 Housing: House Are you a primary child care aide to a significant other at home: No Do you presently have visiting nurse or other home services: Yes Unable to assess alcohol history related to: Unable to respond Alcohol intake: never Patient Tobacco Use Status: Never used Tobacco Second Hand Smoke Exposure: No Advance Directives Date on File: 02/28/23 service: No Current occupational status: disabled Meds Allergies Allergy/AdvReac Type Severity Reaction Status Date / Time aspirin [ASPIRIN] Allergy Intermediate HIVES Verified 04/26/23 13:28 Penicillins [PCN] Allergy Intermediate HIVES Verified 04/26/23 13:28 Active Medications: Current Medications Ceftriaxone Sodium 1 gm/ (Sodium Chloride) 50 mls @ 100 mls/hr IV Q24H [facility] Last Infusion: 06/23/23 19:27 Dose: Infused Insulin Human Lispro (Insulin Lispro 100 Unit/Ml 3 Ml Vial) 0 unit SUBCUT QIDACHS [facility]; Protocol Last Admin: 06/24/23 13:00 Dose: Not Given Lactulose (Lactulose 20 Gm/30 Ml Solution) 30 gm NG-TUBE TID [facility] Last Admin: 06/24/23 08:13 Dose: 30 gm Ondansetron HCl (Ondansetron Hcl 4 Mg/2 Ml Vial) 4 mg IVPUSH Q8H PRN PRN Reason: Nausea and Vomiting Rifaximin (Rifaximin 550 Mg Tablet) 550 mg PO BID [facility] Sodium Chloride (0.9 % Sodium Chloride Flush 3 Ml Syringe) 3 ml IVFLUSH QSHIFT [facility] Last Admin: 06/24/23 08:23 Dose: 3 ml Home Medications Medication Instructions Recorded Confirmed Last Taken Type carbidopa 25 mg-levodopa 100 mg 1 tab PO TID 04/21/20 06/23/23 06/16/23 History tablet levothyroxine 75 mcg tablet 75 mcg PO DAILY 04/21/20 06/23/23 06/16/23 History omeprazole 20 mg capsule,delayed 20 mg PO DAILY 04/21/20 06/23/23 06/16/23 History release montelukast 10 mg tablet 10 mg PO BEDTIME 09/16/22 06/23/23 06/16/23 History gabapentin 300 mg capsule 300 mg PO TID 04/15/23 06/23/23 06/16/23 History linagliptin 5 mg tablet (Tradjenta) 5 mg PO DAILY 06/17/23 06/23/23 06/16/23 History acarbose 50 mg tablet 50 mg PO TID 06/23/23 06/23/23 Unknown History alendronate 70 mg tablet 70 mg PO FR 06/23/23 06/23/23 Unknown History atorvastatin 20 mg tablet 20 mg PO BEDTIME 06/23/23 06/23/23 Unknown History Physical Exam 2 Vital Signs: Vital Signs: Last Vital Signs Temp 98.6 F 06/24/23 11:07 Pulse 102 H 06/24/23 11:07 Resp 18 06/24/23 11:07 BP 128/60 06/24/23 11:07 Pulse Ox 99 06/24/23 11:07 O2 Del Method Room Air 06/24/23 11:07 BMI result Body Mass Index 30.2 Const: General: no acute distress, confusion and ill appearing Nutritional Appearance: obese Orientation/consciousness: confusion Limitations: l anguage barrier HEENT: Head: Yes normal to inspection Ears: hearing grossly normal bilaterally Eyes: Sclerae: scleral abnormal (Scleral icterus) Pupils: Equal, round and reactive pupils present Neck: Neck: Yes normal visual inspection Chest: Chest palpation & inspection: normal inspection of the chest Resp: Effort & Inspection: normal respiratory effort Auscultation: clear to auscultation bilaterally Cardio: Palpation: normal PMI Rate: regular rate Rhythm: regular rhythm Heart sounds: S1 normal heart sound present, S2 normal heart sound present and no murmurs GI: Inspection: Yes obesity Palpation (GI): Soft to palpation, nontender and No hepatosplenomegaly present Auscultation: normal bowel sounds Rectal Exam - Female: deferred Skin: General skin exam: no rashes or lesions noted and spider nevi (on anterior chest) Neuro: General: gait normal, moves all extremities and confusion Cranial nerves: Yes Equal, round and reactive pupils present Extrem: General: Yes pedal edema (1+ pitting edema - both LE) Psych: Appearance: grossly normal Mental Status: mental status grossly normal Results Labs 06/25/23 05:51 06/25/23 05:51 Labs: Short CBC 06/24/23 Range/Units 09:38 WBC 7.1 (4.8-10.8) X10*3/uL Hgb 9.0 L (12.0-16.0) g/dl Hct 27.3 L (37.0-47.0) % Plt Count 61 L (160-400) X10*3/uL BMP 06/24/23 09:38 Sodium 139 Potassium 3.7 D Chloride 114 H Carbon Dioxide 20 L BUN 13 Creatinine 0.58 Calcium 8.2 L Urine 06/23/23 Range/Units 18:21 Urine Color Dark Yellow Urine Appearance Turbid Urine pH 6.0 (5.0-9.0) Ur Specific [place] 1.025 (1.005-1.025) Urine Protein Trace (Neg-Trace) mg/dL Urine Glucose (UA) Negative (Negative) mg/dL Microbiology Microbiology Results: Microbiology 06/23/23 11:09 Blood - Venous Blood Culture - Preliminary No growth after 24 hours. 06/23/23 10:42 Blood - Venous Blood Culture - Preliminary No growth after 24 hours. Assessment and Plan (1) Acute hepatic encephalopathy: Status: Acute (2) Decompensated hepatic cirrhosis: Status: Acute Plan 68 year old Afghan-speaking female with hypertension, diabetes mellitus, hypothyroidism, asthma, Parkinson's disease admitted to [facility] on 06 23 23 with altered mental status. 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 inadequate response to lactulose or HCC). MELD Na score is 20. Pt is not interested in pursuing a liver transplant (per past discussion with the patient) RECOMMENDATIONS: 1. Continue p.o. lactulose 30 gms 3 times a day and titrate to 3 soft stools daily 2. Agree with addition of rifaximin 550 mg twice daily and continue as outpatient 3. Avoid sedatives and hepatotoxins. 4. Triple phase CT scan to rule out HCC and splenorenal shunt. 5. High calorie diet Pt has a FU appt in the GI clinic on 06/28/23 06/24/[address] SCAN SHOWED: 1. Cirrhotic liver with associated splenomegaly, large varices and ascites. 2. 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 3. No hepatic mass is seen. 4. Other incidental findings as described above including possible left lower lobe infiltrate. Procedures Date of Service Date of Service: 06/26/23
[2023-06-24] MEDS: cefTRIAXone sodium 1 GM in 0.9 % Sodium Chloride 50 ML IV (16:11)
--- NOTE | 2023-06-24 17:23 | PC.NURSE ---
1720- assumed care of patient. A&O to self and place. Vital signs obtained. Patient calm cooperative with no complaints of pain. No signs or symptoms of distress at this time. Skin intact. Jaundice present in sclera and skin. +1 pitting edema to bilateral lower extremities. Family present at bedside upon transfer.
[2023-06-24 17:28] LABS: Glucose, Whole Blood 290 mg/dL (60-115)
[2023-06-24] MEDS: iohexoL 350 MG/ML 100 ML INFUS..BTL IV (19:49)
[2023-06-24 20:57] LABS: Glucose, Whole Blood 262 mg/dL (60-115)
[2023-06-24] MEDS: rifAXIMin 550 MG TABLET PO (21:06)
[2023-06-25 04:00] VITALS: BP 131/62; PULSE 97; RESP 18; TEMP 36.8; O2SAT 96
[2023-06-25 06:41] LABS: Hematocrit 24.8 % (37.0-47.0); Hemoglobin 8.2 g/dl (12.0-16.0); Mean Corpuscular HGB Conc 33.1 g/dl (31.0-35.0); Mean Corpuscular Hemoglobin 33.9 pg (27.0-33.0); Mean Corpuscular Volume 102.5 fL (80.0-98.0); Mean Platelet Volume 10.4 fL (9.4-12.3); Platelet Count 53 X10*3/uL (160-400); Red Blood Count 2.42 X10*6/uL (4.20-5.50); Red Cell Distribution Width 16.7 % (11.0-16.0); White Blood Count 5.2 X10*3/uL (4.8-10.8)
[2023-06-25 06:54] LABS: Anion Gap 9 (12-20); Blood Urea Nitrogen 9 mg/dL (9-16); Calcium 7.2 mg/dL (8.4-10.2); Carbon Dioxide 20 mmol/L (22-29); Chloride 111 mmol/L (96-108); Creatinine Clr Calc Pharmacy 82.7; Estimated Glomerular Filt Rate > 60; Glucose Random 128 mg/dL (60-115); Potassium 3.4 mmol/L (3.3-5.1); Sodium 137 mmol/L (135-145)
[2023-06-25 07:10] VITALS: BP 152/74; PULSE 100; RESP 17; TEMP 36.1; O2SAT 96
[2023-06-25 07:25] LABS: Glucose, Whole Blood 132 mg/dL (60-115)
[2023-06-25 07:26] LABS: Folate 10.7 ng/mL (> or = 4.0); Vitamin B12 990 pg/mL (200-900)
[2023-06-25] MEDS: rifAXIMin 550 MG TABLET PO ×2 (08:06→20:33)
[2023-06-25] MEDS: Lactulose 20 GM/30 ML SOLUTION 30 GM NG-TUBE ×3 (08:06→20:33)
[2023-06-25] MEDS: 0.9 % Sodium Chloride Flush 3 ML SYRINGE IVFLUSH ×2 (08:06→20:33)
[2023-06-25 11:11] LABS: Glucose, Whole Blood 215 mg/dL (60-115)
--- NOTE | 2023-06-25 12:30 | HO.PM.IMPN ---
Subjective Subjective Date of Service: 06/25/23 Interval History: Seen and evaluated More alert and interactive tolerating diet feels weak No overnight events Review of Systems Review of Systems: Yes all other systems are reviewed and are negative Physical Exam Vital Signs: Vital Signs: Last Vital Signs Temp 97 F 06/25/23 07:10 Pulse 100 06/25/23 07:10 Resp 17 06/25/23 07:10 BP 152/74 H 06/25/23 07:10 Pulse Ox 96 06/25/23 07:10 O2 Del Method Room Air 06/25/23 07:10 BMI result Body Mass Index 30.2 Const: Other: Constitutional : alert, frail, not in distress Neck : Normal inspection, Supple Cardiovascular : RRR, no JVP, trace lower extremity edema Respiratory : good bilateral air entry, no crackles, wheezes or rhonchi Gastrointestinal: soft, lax, Normal bowel sounds, Non tender, NG tube in place Skin : Warm, Dry Neurological : alert but weak, oriented to self and place, No focal deficit Objective Data Active Medications Ceftriaxone Sodium 1 gm/ (Sodium Chloride) 50 mls @ 100 mls/hr IV Q24H [facility] Last Infusion: 06/24/23 16:45 Dose: Infused Documented By: CRISTIAN Insulin Human Lispro (Insulin Lispro 100 Unit/Ml 3 Ml Vial) 0 unit SUBCUT QIDACHS [facility]; Protocol Last Admin: 06/25/23 07:28 Dose: Not Given Documented By: LAWRENCE Non-Admin Reason: No Insulin Coverage Lactulose (Lactulose 20 Gm/30 Ml Solution) 30 gm NG-TUBE TID [facility] Last Admin: 06/25/23 08:06 Dose: 30 gm Documented By: LAWRENCE Ondansetron HCl (Ondansetron Hcl 4 Mg/2 Ml Vial) 4 mg IVPUSH Q8H PRN PRN Reason: Nausea and Vomiting Rifaximin (Rifaximin 550 Mg Tablet) 550 mg PO BID [facility] Last Admin: 06/25/23 08:06 Dose: 550 mg Documented By: LAWRENCE Sodium Chloride (0.9 % Sodium Chloride Flush 3 Ml Syringe) 3 ml IVFLUSH QSHIFT [facility] Last Admin: 06/25/23 08:06 Dose: 3 ml Documented By: LAWRENCE Labs 06/25/23 05:51 06/25/23 05:51 Labs: Laboratory Results - last 24 hr 06/24/23 06/24/23 06/25/23 17:25 20:43 05:51 MCV 102.5 H MCH 33.9 H MCHC 33.1 RDW 16.7 H Plt Count 53 L MPV 10.4 Absolute Nucleated RBC 0.000 Nucleated RBC % (auto) 0.0 Anion Gap 9 L Estim Creat Clear Calc 82.7 Estimated GFR > 60 POC Glucose 290 H 262 H Random Glucose 128 H Calcium 7.2 L D Vitamin B12 990 H Folate 10.7 06/25/23 06/25/23 07:10 11:05 MCV MCH MCHC RDW Plt Count MPV Absolute Nucleated RBC Nucleated RBC % (auto) Anion Gap Estim Creat Clear Calc Estimated GFR POC Glucose 132 H 215 H Random Glucose Calcium Vitamin B12 Folate Microbiology Microbiology Results: Microbiology 06/23/23 18:37 Urine Culture - Preliminary Urine Catheterized - Espinal Catheter Gram negative luiz 06/23/23 11:09 Blood Culture - Preliminary Blood - Venous No growth after 24 hours. 06/23/23 10:42 Blood Culture - Preliminary Blood - Venous No growth after 24 hours. Assessment and Plan (1) Acute hyponatremia: Status: Acute (2) Acute hepatic encephalopathy: Status: Acute (3) Decompensated hepatic cirrhosis: Status: Acute Plan A 68 years old lady with PMH of Cirrhosis 2/2 Hep C, DM 2, Parkinson disease, HLD among others who presents to the hospital from home with AMS. Acute toxic metabolic encephalopathy due to hepatic encephalopathy in patient with HCV cirrhosis improving NG tube removed Lactulose TID w goal of 3-4 BM daily Continue Rifaximin Empirical Ceftriaxone GI consult, Triple phase CT, High calorie diet Continue Aldactone and Lasix Acute Hyponatremia resolved Monitor BMP Lactic acidosis not due to sepsis likely type II LA from liver failure Physical deconditioning PT eval Hyperglycemia in Diabetes Insulin sliding scale Parkinson's Sinemet Hypothyroid Levothyroxine DVT prophylaxis - mechanical due to thrombocytopenia from cirrhosis Full code The patient will need overnight hospital stay for treatment of encephalopathy and hyponatremia pending clinical response Quality Stroke Does the patient have a stroke diagnosis?: No VTE Prior VTE?: No VTE Risk Level:: Medical - moderate - high VTE Device Contraindication: N/A - Device Ordered VTE Drug Contraindication: Treatment Not Indicated
[2023-06-25] MEDS: Insulin Lispro 100 UNIT/ML 3 ML VIAL SUBCUT ×3 (12:32→20:32)
[2023-06-25 13:36] VITALS: BP 152/74; PULSE 100; O2SAT 96
[2023-06-25 16:00] VITALS: BP 139/63; PULSE 92; RESP 16; TEMP 36.2; O2SAT 98
[2023-06-25] MEDS: cefTRIAXone sodium 1 GM in 0.9 % Sodium Chloride 50 ML IV (16:16)
[2023-06-25 17:14] LABS: Glucose, Whole Blood 314 mg/dL (60-115)
[2023-06-25 20:00] VITALS: BP 139/65; PULSE 94; RESP 16; TEMP 36.6; O2SAT 98
[2023-06-25 20:17] LABS: Glucose, Whole Blood 208 mg/dL (60-115)
[2023-06-25] MEDS: Carbidopa/Levodopa 25/100 TABLET 1 TAB PO (20:33)
[2023-06-26 03:53] VITALS: BP 123/58; PULSE 96; RESP 18; TEMP 37.6; O2SAT 98
[2023-06-26 07:07] VITALS: BP 121/56; PULSE 92; RESP 16; TEMP 36.9; O2SAT 97
[2023-06-26 07:40] LABS: Glucose, Whole Blood 206 mg/dL (60-115)
[2023-06-26] MEDS: Lactulose 20 GM/30 ML SOLUTION 30 GM NG-TUBE (08:33)
[2023-06-26] MEDS: Carbidopa/Levodopa 25/100 TABLET 1 TAB PO ×3 (08:34→22:23)
[2023-06-26] MEDS: rifAXIMin 550 MG TABLET PO ×2 (08:34→22:22)
[2023-06-26] MEDS: Insulin Lispro 100 UNIT/ML 3 ML VIAL SUBCUT ×4 (08:40→22:22)
[2023-06-26] MEDS: 0.9 % Sodium Chloride Flush 3 ML SYRINGE IVFLUSH ×2 (08:43→17:11)
[2023-06-26 12:02] LABS: Glucose, Whole Blood 199 mg/dL (60-115)
--- NOTE | 2023-06-26 12:39 | P.PNIM_ITS ---
Subjective Subjective Date of Service: 06/26/23 Interval History: Seen and evaluated alert and interactive tolerating diet, having 1-2 BM daily No overnight events Review of Systems Review of Systems: Yes all other systems are reviewed and are negative Physical Exam 2 Vital Signs: Vital Signs: Last Vital Signs Temp 98.4 F 06/26/23 07:07 Pulse 92 06/26/23 07:07 Resp 16 06/26/23 07:07 BP 121/56 L 06/26/23 07:07 Pulse Ox 97 06/26/23 07:07 O2 Del Method Room Air 06/26/23 07:07 BMI result Body Mass Index 30.2 Const: Other: Constitutional : alert, frail, not in distress Neck : Normal inspection, Supple Cardiovascular : RRR, no JVP, +1 lower extremities edema Respiratory : good bilateral air entry, no crackles, wheezes or rhonchi Gastrointestinal: soft, lax, Normal bowel sounds, Non tender, NG tube in place Skin : Warm, Dry Neurological : alert but weak, oriented to self and place, No focal deficit Objective Data Active Medications Carbidopa/Levodopa (Carbidopa/Levodopa 25/100 Tablet) 1 tab PO TID [facility] Last Admin: 06/26/23 08:34 Dose: 1 tab Documented By: LAWRENCE Ceftriaxone Sodium 1 gm/ (Sodium Chloride) 50 mls @ 100 mls/hr IV Q24H [facility] Last Infusion: 06/25/23 16:49 Dose: Infused Documented By: LAWRENCE Insulin Human Lispro (Insulin Lispro 100 Unit/Ml 3 Ml Vial) 0 unit SUBCUT QIDACHS [facility]; Protocol Last Admin: 06/26/23 12:23 Dose: 2 unit Documented By: LAWRENCE Lactulose (Lactulose 20 Gm/30 Ml Solution) 30 gm NG-TUBE TID [facility] Last Admin: 06/26/23 08:33 Dose: 30 gm Documented By: LAWRENCE Ondansetron HCl (Ondansetron Hcl 4 Mg/2 Ml Vial) 4 mg IVPUSH Q8H PRN PRN Reason: Nausea and Vomiting Rifaximin (Rifaximin 550 Mg Tablet) 550 mg PO BID [facility] Last Admin: 06/26/23 08:34 Dose: 550 mg Documented By: LAWRENCE Sodium Chloride (0.9 % Sodium Chloride Flush 3 Ml Syringe) 3 ml IVFLUSH QSHIFT [facility] Last Admin: 06/26/23 08:43 Dose: 3 ml Documented By: LAWRENCE Labs 06/25/23 05:51 06/25/23 05:51 Labs: Laboratory Results - last 24 hr 06/25/23 06/25/23 06/26/23 16:44 20:09 07:15 POC Glucose 314 H 208 H 206 H 06/26/23 11:58 POC Glucose 199 H Microbiology Microbiology Results: Microbiology 06/23/23 18:37 Urine Culture - Preliminary Urine Catheterized - Espinal Catheter Escherichia coli 06/23/23 11:09 Blood Culture - Preliminary Blood - Venous No growth after 48 hours. 06/23/23 10:42 Blood Culture - Preliminary Blood - Venous No growth after 48 hours. Assessment and Plan (1) Acute hyponatremia: Status: Acute (2) Acute hepatic encephalopathy: Status: Acute (3) Decompensated hepatic cirrhosis: Status: Acute Plan A 68 years old lady with PMH of Cirrhosis 2/2 Hep C, DM 2, Parkinson disease, HLD among others who presents to the hospital from home with AMS. Acute toxic metabolic encephalopathy due to hepatic encephalopathy in patient with HCV cirrhosis improving NG tube removed Lactulose TID w goal of 2-3 BM daily Continue Rifaximin Empirical Ceftriaxone GI consult, Triple phase CT, High calorie diet Continue Aldactone and Lasix Acute Hyponatremia resolved Monitor BMP Lactic acidosis not due to sepsis likely type II LA from liver failure Physical deconditioning PT eval w STR recommendations Hyperglycemia in Diabetes Insulin sliding scale Parkinson's Sinemet Hypothyroid Levothyroxine DVT prophylaxis - mechanical due to thrombocytopenia from cirrhosis Full code The patient will need overnight hospital stay for treatment of hepatic encephalopathy pending safe discharge plan Quality Stroke Does the patient have a stroke diagnosis?: No VTE Prior VTE?: No VTE Risk Level:: Medical - moderate - high VTE Device Contraindication: N/A - Device Ordered VTE Drug Contraindication: Treatment Not Indicated
--- NOTE | 2023-06-26 12:49 | MHC.CM.PN ---
Addendum entered by Giselle Whitney 06/26/23 14:35: PTS DAUGHTER MET WITH CM, SHE IS AWARE [facility] HAS NOT OFFERED A BED SHE REPORTS SHE IS AGREEABLE TO REFERRALS BEING MADE TO [facility] AND [facility] REFERRALS OUT Original Note: CM RECEIVED A CALL FROM PTS DAUGHTER YESTERDAY SHE STATED SHE DID NOT FEEL THE PT SHOULD GO RIGHT HOME FROM THE HOSPITAL AND WOULD LIKE HER TO GO TO [facility] FOR 3 WEEKS CM EXPLAINED THE PT WOULD HAVE TO HAVE A PT EVAL TO DETERMINE IF SHE WOULD QUALIFY FOR PT CM ALSO EXPLAINED THERE WOULD BE NO WAY TO KNOW HOW LONG THE PT WOULD GO FOR IF SHE DID SKILL INTO REHAB MARCIA REPORTED SHE UNDERSTOOD THE PLAN AND REQUESTED A REFERRAL BE MADE TO [facility]) IF PT DID QUALIFY PT HAD A PT EVAL YESTERDAY THAT INDICATED [facility] HAS NOT OFFERED A BED CM HAS ATTEMPTED TO REACH PTS DAUGHTER MULTIPLE TIMES TO DISCUSS EXPANDING THE REFERRAL AWAITING RETURN CALL DAUGHTER: MARCIA [phone]
[2023-06-26] MEDS: Lactulose 20 GM/30 ML SOLUTION 30 GM PO ×2 (14:10→22:23)
[2023-06-26] MEDS: Furosemide 20 MG TABLET PO (14:11)
[2023-06-26] MEDS: Gabapentin 100 MG CAPSULE PO ×2 (14:11→22:23)
[2023-06-26] MEDS: Spironolactone 25 MG TABLET 12.5 MG PO (14:11)
[2023-06-26] MEDS: cefTRIAXone sodium 1 GM in 0.9 % Sodium Chloride 50 ML IV (14:11)
[2023-06-26 16:00] VITALS: BP 130/61; PULSE 88; RESP 16; TEMP 36.5; O2SAT 99
[2023-06-26 16:20] LABS: Glucose, Whole Blood 215 mg/dL (60-115)
[2023-06-26 20:00] VITALS: BP 128/60; PULSE 82; RESP 16; TEMP 36.7; O2SAT 100
[2023-06-26 21:09] LABS: Glucose, Whole Blood 181 mg/dL (60-115)
[2023-06-26] MEDS: Atorvastatin Calcium 20 MG TABLET PO (22:22)
[2023-06-26] MEDS: Montelukast Sodium 10 MG TABLET PO (22:22)
[2023-06-27] MEDS: 0.9 % Sodium Chloride Flush 3 ML SYRINGE IVFLUSH ×3 (01:31→21:21)
[2023-06-27 03:58] VITALS: BP 129/60; PULSE 83; RESP 16; TEMP 36.1; O2SAT 98
[2023-06-27] MEDS: Levothyroxine Sodium 75 MCG TABLET PO (06:02)
[2023-06-27 07:46] LABS: Glucose, Whole Blood 164 mg/dL (60-115)
[2023-06-27 07:54] VITALS: BP 115/57; PULSE 83; RESP 16; TEMP 36.4; O2SAT 99
[2023-06-27] MEDS: Insulin Lispro 100 UNIT/ML 3 ML VIAL SUBCUT ×4 (08:02→21:20)
[2023-06-27] MEDS: Spironolactone 25 MG TABLET 12.5 MG PO (08:03)
[2023-06-27] MEDS: rifAXIMin 550 MG TABLET PO ×2 (08:03→21:20)
[2023-06-27] MEDS: Furosemide 20 MG TABLET PO (08:03)
[2023-06-27] MEDS: Omeprazole 20 MG CAPSULE.DR PO (08:03)
[2023-06-27] MEDS: Lactulose 20 GM/30 ML SOLUTION 30 GM PO ×3 (08:03→21:21)
[2023-06-27] MEDS: Carbidopa/Levodopa 25/100 TABLET 1 TAB PO ×3 (08:03→21:20)
[2023-06-27] MEDS: Gabapentin 100 MG CAPSULE PO ×3 (08:03→21:20)
--- NOTE | 2023-06-27 09:35 | MHC.CM.PN ---
Addendum entered by Brionna Moore RN 06/27/23 15:57: PER MD, PT LOST MIDLINE. PLAN FOR [place] CATH IN AM THEN DC TO [facility] BY NOON. HCP AND FACILITY UPDATED. Addendum entered by Brionna Moore RN 06/27/23 11:38: PER MD, URINE CX POSITIVE, WILL NEED MIDLINE FOR IV ABX. TRANSPORT MOVED TO 6PM TO ALLOW TIME FOR MIDLINE PLACEMENT. PT, HCP, RN, MD, FACILITY AWARE. Addendum entered by Brionna Moore RN 06/27/23 09:48: DISCUSSED DC PLAN AND DELIVERED IMM VIA SALES ASSISTANT DISPLAYS. Original Note: RECEIVED BED OFFER FROM [facility]. DISCUSSED WITH HCP, WHO ACCEPTED BED. BLS TRANSPORT SCHEDULED FOR NOON. , RN, HCP AND PATIENT AWARE. IMM DELIVERED.
[2023-06-27 11:46] LABS: Glucose, Whole Blood 221 mg/dL (60-115)
--- NOTE | 2023-06-27 13:17 | P.DS_ITS ---
DS: Providers Provider Date of Service: 06/28/23 Date of admission: 06/23/23 14:52 Primary care physician: Everett Ng MD Consults: 06/24/23 12:43 Consult to Gastroenterology Routine Consulting Provider: Gilma Mar Reason for consultation: recurrent hepatic encephalopathy for advice 06/27/23 11:25 Consult to Infectious Diseases Routine Consulting Provider: JOHNNY MIRZA Reason for consultation: ESBL E.Coli DS: Diagnosis Discharge Diagnosis (1) Acute hepatic encephalopathy: Status: Resolved (2) Decompensated hepatic cirrhosis: Status: Inactive (3) UTI due to extended-spectrum beta lactamase (ESBL) producing Escherichia coli: Status: Acute (4) Acute hyponatremia: Status: Resolved DS: Summary Hospital Course Hospital Course: Admission note HPI A 68 years old lady with PMH of Cirrhosis 2/2 Hep C, DM 2, Parkinson disease, HLD among others who presents to the hospital from home with AMS. The daughter provided history, stating that her mother was getting little weaker and confused over the last few days but worst this morning as she went to bed last night fairly ok and could not wake her up this morning. Denies any complaints, pain, fever, chills, cough or abdominal pain. She was taking her Lactulose as scheduled with 2-3 bowel movements daily, firm. Found to have elevated Ammonia of 200 in ED. NG tube placed and started on Lactulose. Admitted for further evaluation and treatment. Hospital course # Acute toxic metabolic encephalopathy due to hepatic encephalopathy in patient with HCV cirrhosis NG tube placed on admission and Lactulose was administed TID w goal of 2-3 BM daily. Her mentation improved the next morning as she start having bowel movements. NG tube removed and she was started on Rifaximin and Empirical Ceftriaxone for possible UTI. GI consult, Triple phase CT that showed Cirrhosis, Spleenomegaly and large varices. Portal vein appears attenuated\occulodid. discussed with GI who recommended not to start any blood thinners given her varices. Continue Aldactone and Lasix # ESBL E.Coli UTI Empirically placed on Ceftriaxone. Encephalopathy improved but culture grew ESBL E.Coli. a Motley was placed for 10 days treatment of Invanz. To finish by 07/06 # Acute Hyponatremia resolved, encourage PO intake # Lactic acidosis not due to sepsis. likely type II LA from liver failure # Physical deconditioning PT evaluation w STR recommendations Continue Invanze for total of 10 days, finish 07/06. Decrease Gabapentin to 100 mg three times daily Start Rifaximin 550 twice daily Increase Lactulose to 30mg three times daily. with goal of 2-3 bowel movements. Time Attestation Discharge coordination time: Greater than 30 minutes Quality: Safe Use of Opioids Does Pt have an Active Cancer Diagnosis on the Problem List?: No Quality: Stroke Does the patient have a stroke diagnosis?: No Physical Exam Vital Signs: Vital Signs: Last Vital Signs Temp 97.5 F 06/27/23 07:54 Pulse 83 06/27/23 07:54 Resp 16 06/27/23 07:54 BP 115/57 L 06/27/23 07:54 Pulse Ox 99 06/27/23 07:54 O2 Del Method Room Air 06/27/23 07:54 BMI result Body Mass Index 30.2 Const: Other: Constitutional : alert, frail, not in distress Neck : Normal inspection, Supple Cardiovascular : RRR, no JVP, trace lower extremities edema Respiratory : good bilateral air entry, no crackles, wheezes or rhonchi Gastrointestinal: soft, lax, Normal bowel sounds, Non tender, has mild ascites Skin : Warm, Dry Neurological : alert but weak, oriented to self and place, No focal deficit DS: Data Data Completed and Pending Labs on day of discharge: Laboratory Results - last 24 hr 06/26/23 06/26/23 06/27/23 16:17 20:47 07:42 POC Glucose 215 H 181 H 164 H 06/27/23 11:31 POC Glucose 221 H Preliminary micro results at discharge 06/23/23 11:09 Blood Culture - Preliminary Blood - Venous No growth after 48 hours. 06/23/23 10:42 Blood Culture - Preliminary Blood - Venous No growth after [address] scan - abdomen: Radiologist's impression: ITS Impressions Chest X-Ray 06/23/23 10:20 IMPRESSION: Probable pulmonary vascular congestion and redistribution. Chest X-Ray 06/23/23 12:45 IMPRESSION: NG tube with tip in gastric antrum. Cervical Spine CT 06/23/23 13:12 IMPRESSION: Degenerative disc changes with ventral and posterior spondylosis and disc bulge osteophyte complex at the C5-C6 disc level. No spinal canal stenosis. Rest of the cervical spine is unremarkable. Fleischner guidelines were followed. Head CT 06/23/23 13:12 IMPRESSION: 1. No acute intracranial pathology. No significant change since 02/22/2023. Abdomen/Pelvis CT 06/24/23 19:52 IMPRESSION: 1. Cirrhotic liver with associated splenomegaly, large varices and ascites. 2. 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 3. No hepatic mass is seen. 4. Other incidental findings as described above including possible left lower lobe infiltrate. Fleischner guidelines were followed. Discharge Plan Discharge Anticipated Discharge Date/Time: 06/27/23 11:15 Patient Disposition: [facility] Discharge Diagnosis: Hepatic encephalopathy Referrals: [facility] [Outside] - 1 Day (SHORT TERM REHAB) Everett Henning MD [Primary Care Provider] - 1 Week Discharge Medications: New gabapentin 100 mg Capsule 100 mg PO TID Qty: 90 0RF Xifaxan 550 mg Tablet 550 mg PO BID Qty: 60 0RF lactulose 20 gram/30 mL Solution 30 g PO TID Qty: 2880 0RF spironolactone 25 mg tablet 25 mg PO DAILY Qty: 60 0RF Continued levothyroxine 75 mcg tablet 75 mcg PO DAILY omeprazole 20 mg capsule,delayed release(DR/EC) 20 mg PO DAILY carbidopa-levodopa 25-100 mg tablet 1 tab PO TID Tradjenta 5 mg tablet 5 mg PO DAILY furosemide 20 mg Tablet 20 mg PO DAILY Qty: 30 0RF Protocol: Hold for SBP< HOLD for SBP < : 90 atorvastatin 20 mg tablet 20 mg PO BEDTIME alendronate 70 mg tablet 70 mg PO FR acarbose 50 mg tablet 50 mg PO TID montelukast 10 mg tablet 10 mg PO BEDTIME Discontinued gabapentin 300 mg capsule 300 mg PO TID lactulose 20 gram/30 mL Solution 20 g PO BID 30 Days Qty: 1800 0RF Discharge Orders: Discharge Order (Routine); Ordered 06/28/23 Ordered By: Andrew Sol Diet: Low salt diet Activity on Discharge: As tolerated Stand Alone Forms: Patient Portal Discharge page Care Plan Goals: Read below Health Concerns: Read below Plan of Treatment: Read below Assessment: You were admitted to the hospital for treatment of altered mentation. Found to have elevated ammonia level with urine infection. Treated with Lactulose and IV antibiotics with good response over the course of hospital stay. You will need IV antibiotics on discharge. Continue Invanz for 10 days Decrease Gabapentin to 100 mg three times daily Start Rifaximin 550 twice daily Increase Lactulose to 30mg three times daily. with goal of 2-3 bowel movements.
--- NOTE | 2023-06-27 13:29 | MHC.PICC ---
PICC Line Insertion Date of Service: 06/27/23 Informed consent was obtained from the patient. A time out verification was performed. The correct site and side was verified and marked. The correct patient position was verified. Availability of special equipment was confirmed. Medications, allergies, relevant history and relevant test results were reviewed. Strict sterile technique was employed throughout the procedure including the following: hand hygiene prior to donning gloves, gown, mask, [] arm was prepped with chlorhexadine X 2 and draped using full body barrier kit. Lidocaine 1% was used for skin wheel. The [] vein was accessed with a [] gauge needle using ultrasound guidance, a guidewire was passed without resistance, a [] Gabonese introducer was inserted with good blood flow return. A [] Gabonese [single][double] lumen solo power PICC was advanced without resistance. Final catheter length is [] cm. A post procedure chest x-ray was obtained and read by radiologist who confirmed that the catheter tip is in the []. PICC line is ready to be used. There were no apparent complications during the procedure.
--- NOTE | 2023-06-27 13:42 | HO.MIDLINE_ITS ---
Midline Insertion MIDLINE INSERTION Diagnosis: +UTI Indication: Antibx for two Weeks Pertinent Labs:Reviewed Technique: Using sterile technique including cap and mask, glove and drape, the Left arm was prepped and draped in the usual sterile fashion of full barrier technique with CHG. Using ultrasound guidance, LEFT BASILIC vein access was obtained BY CHARITO DEWITT. [id number] ST POWERGLIDE NON-PASV MIDLINE was positioned. The procedure was performed in [facility]. Ultrasound was used to document vein patency and for needle entry. A formal ultrasound picture was recorded. Vascular [employer]rentice has released the line for use and it is currently dressed with a StatLock, Tegaderm, and CHG disc. Verification has been performed for blood return and line patency. Arm Circumference: 28CM Equipment: BARD POWERGLIDE MIDLINE CATHETER Catheter Type: [id number] POWERGLIDE NON-PASV MIDLINE Lot #: [id number]
[2023-06-27] MEDS: Ertapenem Sodium 1 GM in 0.9 % Sodium Chloride 50 ML IV (15:14)
[2023-06-27 15:36] VITALS: BP 138/65; PULSE 92; RESP 16; TEMP 36.7; O2SAT 97
--- NOTE | 2023-06-27 15:49 | P.PNIM_ITS ---
Subjective Subjective Date of Service: 06/27/23 Interval History: Seen and evaluated alert and interactive tolerating diet, having 1-2 BM daily No overnight events Review of Systems Review of Systems: Yes all other systems are reviewed and are negative Physical Exam 2 Vital Signs: Vital Signs: Last Vital Signs Temp 98.0 F 06/27/23 15:36 Pulse 92 06/27/23 15:36 Resp 16 06/27/23 15:36 BP 138/65 06/27/23 15:36 Pulse Ox 97 06/27/23 15:36 O2 Del Method Room Air 06/27/23 15:36 BMI result Body Mass Index 30.2 Const: Other: Constitutional : alert, frail, not in distress Neck : Normal inspection, Supple Cardiovascular : RRR, no JVP, trace lower extremities edema Respiratory : good bilateral air entry, no crackles, wheezes or rhonchi Gastrointestinal: soft, lax, Normal bowel sounds, Non tender, has mild ascites Skin : Warm, Dry Neurological : alert but weak, oriented to self and place, No focal deficit Objective Data Active Medications Atorvastatin Calcium (Atorvastatin Calcium 20 Mg Tablet) 20 mg PO BEDTIME [facility] Last Admin: 06/26/23 22:22 Dose: 20 mg Documented By: MARY ANN Carbidopa/Levodopa (Carbidopa/Levodopa 25/100 Tablet) 1 tab PO TID [facility] Last Admin: 06/27/23 15:04 Dose: 1 tab Documented By: MIKE Heparin Sodium (Porcine) 50 (units/ Sodium Chloride 5 ml) 0 units IVFLUSH QSHIFT [facility] Last Admin: 06/27/23 15:44 Dose: Not Given Documented By: MIKE Non-Admin Reason: midline not flushing; removed by IR Furosemide (Furosemide 20 Mg Tablet) 20 mg PO DAILY [facility]; Protocol Last Admin: 06/27/23 08:03 Dose: 20 mg Documented By: MIKE Gabapentin (Gabapentin 100 Mg Capsule) 100 mg PO TID [facility] Last Admin: 06/27/23 15:04 Dose: 100 mg Documented By: MIKE Meropenem 1 gm/ Sodium (Chloride) 100 mls @ 200 mls/hr IV Q8H [facility] Last Infusion: 06/27/23 12:19 Dose: Infused Documented By: MIKE Insulin Human Lispro (Insulin Lispro 100 Unit/Ml 3 Ml Vial) 0 unit SUBCUT QIDACHS [facility]; Protocol Last Admin: 06/27/23 11:46 Dose: 4 unit Documented By: MIKE Comments: poc 221 Lactulose (Lactulose 20 Gm/30 Ml Solution) 30 gm PO TID [facility] Last Admin: 06/27/23 15:03 Dose: 30 gm Documented By: MIKE Levothyroxine Sodium (Levothyroxine Sodium 75 Mcg Tablet) 75 mcg PO DAILY@0600 [facility] Last Admin: 06/27/23 06:02 Dose: 75 mcg Documented By: LORELEI Montelukast Sodium (Montelukast Sodium 10 Mg Tablet) 10 mg PO BEDTIME [facility] Last Admin: 06/26/23 22:22 Dose: 10 mg Documented By: MARY ANN Omeprazole (Omeprazole 20 Mg Capsule.Dr) 20 mg PO DAILY@0630 [facility] Last Admin: 06/27/23 08:03 Dose: 20 mg Documented By: MIKE Ondansetron HCl (Ondansetron Hcl 4 Mg/2 Ml Vial) 4 mg IVPUSH Q8H PRN PRN Reason: Nausea and Vomiting Rifaximin (Rifaximin 550 Mg Tablet) 550 mg PO BID [facility] Last Admin: 06/27/23 08:03 Dose: 550 mg Documented By: MIKE Sodium Chloride (0.9 % Sodium Chloride Flush 3 Ml Syringe) 3 ml IVFLUSH QSHIFT [facility] Last Admin: 06/27/23 08:04 Dose: 3 ml Documented By: MIKE Spironolactone (Spironolactone 25 Mg Tablet) 12.5 mg PO DAILY [facility]; Protocol Last Admin: 06/27/23 08:03 Dose: 12.5 mg Documented By: MIKE Labs 06/25/23 05:51 06/25/23 05:51 Labs: Laboratory Results - last 24 hr 06/26/23 06/26/23 06/27/23 16:17 20:47 07:42 POC Glucose 215 H 181 H 164 H 06/27/23 11:31 POC Glucose 221 H Microbiology Microbiology Results: Microbiology 06/23/23 18:37 Urine Culture - Final Urine Catheterized - Espinal Catheter Escherichia coli Assessment and Plan (1) UTI due to extended-spectrum beta lactamase (ESBL) producing Escherichia coli: Status: Acute (2) Acute hyponatremia: Status: Acute (3) Acute hepatic encephalopathy: Status: Acute Plan A 68 years old lady with PMH of Cirrhosis 2/2 Hep C, DM 2, Parkinson disease, HLD among others who presents to the hospital from home with AMS. Acute toxic metabolic encephalopathy due to hepatic encephalopathy in patient with HCV cirrhosis resolved Lactulose TID w goal of 2-3 BM daily Continue Rifaximin GI consult, Triple phase CT negative for cancer but showed possible portal vein thrombus. Dr Braun suggested no blood thinner given Varices were showed also on CT scan High calorie diet Continue Aldactone and Lasix ESBL E.Coli UTI DC Ceftriaxone Start Invanz Place CVC Acute Hyponatremia resolved Monitor BMP Lactic acidosis not due to sepsis likely type II LA from liver failure Physical deconditioning PT eval w STR recommendations Hyperglycemia in Diabetes Insulin sliding scale Parkinson's Sinemet Hypothyroid Levothyroxine DVT prophylaxis - mechanical due to thrombocytopenia from cirrhosis Full code The patient will need overnight hospital stay for treatment of hepatic encephalopathy pending safe discharge plan Quality Stroke Does the patient have a stroke diagnosis?: No VTE Prior VTE?: No VTE Risk Level:: Medical - moderate - high VTE Device Contraindication: N/A - Device Ordered VTE Drug Contraindication: Treatment Not Indicated
[2023-06-27 16:51] LABS: Glucose, Whole Blood 232 mg/dL (60-115)
[2023-06-27 19:19] VITALS: BP 134/61; PULSE 94; RESP 18; TEMP 36.1; O2SAT 99
[2023-06-27 20:57] LABS: Glucose, Whole Blood 171 mg/dL (60-115)
[2023-06-27] MEDS: Atorvastatin Calcium 20 MG TABLET PO (21:20)
[2023-06-27] MEDS: Montelukast Sodium 10 MG TABLET PO (21:20)
[2023-06-28 03:50] VITALS: BP 125/59; PULSE 89; RESP 18; TEMP 36.6; O2SAT 96
[2023-06-28] MEDS: Levothyroxine Sodium 75 MCG TABLET PO (06:01)
[2023-06-28] MEDS: Omeprazole 20 MG CAPSULE.DR PO (06:01)
[2023-06-28 07:29] VITALS: BP 124/58; PULSE 89; RESP 17; TEMP 36.5; O2SAT 98
[2023-06-28 07:36] LABS: Glucose, Whole Blood 207 mg/dL (60-115)
[2023-06-28] MEDS: Lactulose 20 GM/30 ML SOLUTION 30 GM PO (08:04)
[2023-06-28] MEDS: 0.9 % Sodium Chloride Flush 3 ML SYRINGE IVFLUSH (08:04)
[2023-06-28] MEDS: Insulin Lispro 100 UNIT/ML 3 ML VIAL SUBCUT ×2 (08:04→12:04)
[2023-06-28] MEDS: Gabapentin 100 MG CAPSULE PO (08:05)
[2023-06-28] MEDS: Carbidopa/Levodopa 25/100 TABLET 1 TAB PO (08:05)
[2023-06-28] MEDS: Furosemide 20 MG TABLET PO (08:05)
[2023-06-28] MEDS: Spironolactone 25 MG TABLET 12.5 MG PO (08:05)
[2023-06-28] MEDS: rifAXIMin 550 MG TABLET PO (08:05)
--- NOTE | 2023-06-28 10:21 | MHC.CM.PN ---
[place] PLACED. MEDICALLY CLEARED FOR DC PER MD. BLS TRANSPORT BOOKED FOR 2PM. RNMD, HCP AWARE. FACILITY UPDATED VIA [facility]PORT AND TELEPHONE CALL.
[2023-06-28] MEDS: Lidocaine HCl 1 % MPF 30 ML VIAL 20 ML SUBCUT (10:51)
[2023-06-28 11:26] LABS: Glucose, Whole Blood 234 mg/dL (60-115)
--- NOTE | 2023-06-28 11:33 | HO.RADPN ---
RADIOLOGY Narrative Narrative: Procedure Note Castillo catheter Indications: Poor iv access, needs IV antibiotics Events: Right IJ 22 cm dual lumen castillo placed using US and Fluoro. Tip at cavoatrial junction. Ok for immediate use Nathan DEWITT Interventional Radiology
[2023-06-28] MEDS: Ertapenem Sodium 1 GM in 0.9 % Sodium Chloride 50 ML IV (12:04)
[2023-06-28] MEDS: Heparin Sodium,Porcine Flush 50 UNITS, 0.9 % Sodium Chloride Flush 5 ML IVFLUSH (12:41)
[2023-07-01 16:48] LABS: Vitamin B1 <6 nmol/L (8-30)
== END 2023-06-28 13:18 | disposition skilled nursing facility (03) | DRG 432 ==
LOC: HO.ED 13:07 → HO.EDOVER 14:53 → HO.IMC 18:13 → HO.S3 06-24 16:01
PROVIDERS: Internal Medicine Gastroenterology; Physician Assistant Medical; Physician Assistant Surgical; Admitting Provider Student in an Organized Health Care Education/Training Program; Emergency Provider Emergency Medicine Emergency Medical Services; PCP Internal Medicine; Visit Provider Student in an Organized Health Care Education/Training Program
PROC: 05HC33Z Insertion of Infusion Device into Left Basilic Vein, Percutaneous Approach (ICD-10-PCS; principal; 2023-06-27 12:10)
DX: K74.69 Other cirrhosis of liver (principal); G92.8 Other toxic encephalopathy; I81 Portal vein thrombosis; E87.1 Hypo-osmolality and hyponatremia; D61.818 Other pancytopenia; R18.8 Other ascites; N39.0 Urinary tract infection, site not specified; Z16.12 Extended spectrum beta lactamase (ESBL) resistance; K76.82 Hepatic encephalopathy; E78.5 Hyperlipidemia, unspecified; K75.81 Nonalcoholic steatohepatitis (NASH); K72.10 Chronic hepatic failure without coma; I86.4 Gastric varices; B96.20 Unspecified Escherichia coli [E. coli] as the cause of diseases classified elsewhere; E11.65 Type 2 diabetes mellitus with hyperglycemia; G20.A1 Parkinson's disease without dyskinesia, without mention of fluctuations; E03.9 Hypothyroidism, unspecified; Z20.822 Contact with and (suspected) exposure to COVID-19; Z86.19 Personal history of other infectious and parasitic diseases; Z79.84 Long term (current) use of oral hypoglycemic drugs; Z79.890 Hormone replacement therapy; Z79.899 Other long term (current) drug therapy
CPT/HCPCS: 0241U; 36410; 36415; 36558; 70450; 71045; 72125; 74178; 80048; 80053; 80307; 81001; 82140; 82550; 82607; 82746; 82803; 82947; 83605; 83735; 83880; 84425; 84484; 85025; 85027; 85610; 85730; 87040; 87086; 87088; 87186; 93005; 97161; 99285; C1751; C1769; C9113; J0696; J1335; J1642; J2185; Q9967

== ENCOUNTER → 2023-06-23 10:03 | Outpatient (BNV) | payer MEDICARE, MEDICAID, SELFPAY | PROVIDERS: Admitting Provider Student in an Organized Health Care Education/Training Program; Emergency Provider Emergency Medicine Emergency Medical Services; PCP Internal Medicine; Visit Provider Internal Medicine Cardiovascular Disease | DX: R94.31 Abnormal electrocardiogram [ECG] [EKG] (principal); A41.9 Sepsis, unspecified organism | CPT/HCPCS: 93010 ==

== ENCOUNTER 2023-06-23 14:52 | Outpatient (BNV) | payer MEDICARE, MEDICAID, SELFPAY | END 2023-06-27 10:00 | PROVIDERS: Admitting Provider Student in an Organized Health Care Education/Training Program; Emergency Provider Emergency Medicine Emergency Medical Services; PCP Internal Medicine; Visit Provider Radiology Diagnostic Radiology | DX: K76.82 Hepatic encephalopathy (principal) | CPT/HCPCS: 36558; 76937; 77001 ==

== ENCOUNTER → 2023-06-23 14:52 | Outpatient (BNV) | payer MEDICARE, MEDICAID, SELFPAY | PROVIDERS: Admitting Provider Student in an Organized Health Care Education/Training Program; Emergency Provider Emergency Medicine Emergency Medical Services; PCP Internal Medicine; Visit Provider Internal Medicine Gastroenterology | DX: K76.82 Hepatic encephalopathy (principal); K72.90 Hepatic failure, unspecified without coma; K74.60 Unspecified cirrhosis of liver | CPT/HCPCS: 99223 ==

== ENCOUNTER → 2023-06-23 14:52 | Outpatient (BNV) | payer MEDICARE, MEDICAID, SELFPAY | PROVIDERS: Admitting Provider Student in an Organized Health Care Education/Training Program; Emergency Provider Emergency Medicine Emergency Medical Services; PCP Internal Medicine; Visit Provider Student in an Organized Health Care Education/Training Program | DX: K76.82 Hepatic encephalopathy (principal); N39.0 Urinary tract infection, site not specified; B96.29 Other Escherichia coli [E. coli] as the cause of diseases classified elsewhere; Z16.12 Extended spectrum beta lactamase (ESBL) resistance; E87.1 Hypo-osmolality and hyponatremia | CPT/HCPCS: 99223; 99232; 99233; 99239 ==

== ENCOUNTER 2023-07-15 09:07 | Outpatient (REF) | payer MEDICARE, MEDICAID, SELFPAY | END 2023-07-15 09:08 | disposition home or self-care (01) | LOC: HO.RADIR 09:07 | DX: Z45.2 Encounter for adjustment and management of vascular access device (principal) | CPT/HCPCS: 36589 ==

== ENCOUNTER 2023-07-19 05:58 | Emergency (ER) | payer MEDICARE, MEDICAID, SELFPAY ==
[2023-07-19] VITALS (8 sets, daily range): BP systolic 127–153; BP diastolic 54–92; PULSE 84–103; RESP 11–22; TEMP 36.2–37; O2SAT 97–100; BMI 39.8
--- NOTE | ~2023-07-19 | CT_ITS ---
EXAMINATION: CT HEAD WITHOUT CONTRAST CLINICAL INFORMATION: AMS, elevated INR COMPARISON: None available. TECHNIQUE: Contiguous axial imaging was performed from the skull base to vertex without intravenous administration of contrast. This CT examination was performed using dose optimization techniques as appropriate, variously including the following: *Automated exposure control *Adjustment of mA and/or kV according to patient size (this includes techniques or standardized protocols for targeted exams where dose is matched to indication/reason for exam; i.e. extremities or head) *Use of iterative reconstruction technique DLP: 676 mGy-cm FINDINGS: There is no acute intra-axial, extra-axial bleed, masses or midline shift. There is no acute infarction evolution. There is a left mesial temporal lobe hypodensity question lacunar infarct versus prominent worker Jewell space. There is no mass effect. The lateral ventricles are symmetrical in size and configuration without enlargement. Bone windows reveal no calvarial abnormality. There is no scalp soft tissue abnormality. Bilateral paranasal sinuses and mastoid air cells are well-aerated. CT/CT head/brain wo IV con IMPRESSION: 1. No acute intracranial process seen. 2. Left mesial temporal lobe hypodensity question lacunar infarct versus prominent [place] space.
--- NOTE | ~2023-07-19 | XR_ITS ---
EXAMINATION: PORTABLE CHEST 1 VIEW CLINICAL INFORMATION: fever. COMPARISON: 06/23/2023. TECHNIQUE: Portable frontal view of the chest was obtained. FINDINGS: The lungs are hypoexpanded. There is mild central vascular prominence likely within normal limits for the degree of hypoexpansion. Bilateral peribronchial cuffing is suggested. No focal infiltrate, effusion, edema, or pneumothorax. Cardiac and mediastinal silhouettes are within normal limits for size with vascular calcification in aorta. Degenerative changes in the shoulders. No acute bony abnormality seen. XR/XR chest 1V IMPRESSION: Hypoexpanded with central vascular prominence likely reflective of the degree of hypoexpansion. Peribronchial cuffing suggesting underlying reactive or small airways disease. No focal airspace disease otherwise.
--- NOTE | 2023-07-19 06:09 | ECG_ITS ---
Test Reason : DYSPNEA Blood Pressure : / mmHG Vent. Rate : 096 BPM Atrial Rate : 096 BPM P-R Int : 128 ms QRS Dur : 082 ms QT Int : 364 ms P-R-T Axes : 056 017 201 degrees QTc Int : 459 ms Artifact in tracing Normal sinus rhythm Septal infarct (cited on or before 23-JUN-2023) Nonspecific ST and T wave abnormality Abnormal ECG When compared with ECG of 23-JUN-2023 10:24, Questionable change in initial forces of Anteroseptal leads Referred By: Donald Gutierres Electronically Signed By:JAZMÍN GRANT
--- NOTE | 2023-07-19 06:11 | ED.AMS ---
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 Daughter went to wake her up as usual unable to speak or move or respond similar to that when she came during last admission patient does open her eyes when painful stimuli applied no fall/or head injury Related Data Home Medications Medication Instructions Recorded Confirmed carbidopa 25 mg-levodopa 100 mg 1 tab PO TID 04/21/20 06/23/23 tablet levothyroxine 75 mcg tablet 75 mcg PO DAILY 04/21/20 06/23/23 omeprazole 20 mg capsule,delayed 20 mg PO DAILY 04/21/20 06/23/23 release montelukast 10 mg tablet 10 mg PO BEDTIME 09/16/22 06/23/23 linagliptin 5 mg tablet (Tradjenta) 5 mg PO DAILY 06/17/23 06/23/23 acarbose 50 mg tablet 50 mg PO TID 06/23/23 06/23/23 alendronate 70 mg tablet 70 mg PO FR 06/23/23 06/23/23 atorvastatin 20 mg tablet 20 mg PO BEDTIME 06/23/23 06/23/23 Previous Rx's Medication Instructions Recorded furosemide 20 mg tablet 20 mg PO DAILY #30 tabs 06/20/23 gabapentin 100 mg capsule 100 mg PO TID #90 caps 06/27/23 lactulose 20 gram/30 mL oral 30 g (45 mL) PO TID #2,880 mL 06/27/23 solution rifaximin 550 mg tablet (Xifaxan) 550 mg PO BID #60 tabs 06/27/23 spironolactone 25 mg tablet 25 mg PO DAILY #60 tabs 06/27/23 haloperidol lactate 2 mg/mL oral 2 mg PO Q4H PRN agitation #30 mL 07/19/23 concentrate lorazepam 2 mg/mL oral concentrate 0.5 mg (0.25 mL) PO Q4H PRN 07/19/23 agitation #30 mL morphine concentrate 100 mg/5 mL 5 mg (0.25 mL) PO Q6H pain #30 mL 07/19/23 (20 mg/mL) oral solution Allergies Allergy/AdvReac Type Severity Reaction Status Date / Time aspirin [ASPIRIN] Allergy Intermediate HIVES Verified 04/26/23 13:28 Penicillins [PCN] Allergy Intermediate HIVES Verified 04/26/23 13:28 Review of Systems Review of Systems: Yes Unobtainable due to mental status PMFSH Past Medical History Medical History Decompensated hepatic cirrhosis Hypothyroidism Lower extremity edema Cirrhosis Thrombocytopenia Cirrhosis Hx of hepatitis C Anemia Hypertension Parkinson disease Diabetes Severe sepsis Surgical History History of tubal ligation History of tonsillectomy History of cholecystectomy History of esophagogastroduodenoscopy (EGD) H/O colonoscopy Hx of lithotripsy History of cystoscopy Family History Family History Daughter Diabetes Daughter Diabetes Brother HTN (hypertension) Social History Social History Household Members: Children Household Members Other:: 6 Housing: House Are you a primary assistant child care teacher to a significant other at home: No Do you presently have visiting nurse or other home services: Yes Unable to assess alcohol history related to: Unable to respond Alcohol intake: never Patient Tobacco Use Status: Never used Tobacco Second Hand Smoke Exposure: No Advance Directives Date on File: 02/28/23 service: No Current occupational status: disabled Physical Exam ED Vital Signs: Vital Signs - 24 hr 07/19/23 06:05 07/19/23 09:13 07/19/23 10:40 Temperature 97.2 F Pulse Rate 97 97 103 H Respiratory Rate 22 H 20 14 Blood Pressure 148/92 H 153/59 H 137/54 L Pulse Oximetry 98 100 100 Oxygen Delivery Method Room Air Room Air Room Air 07/19/23 13:12 07/19/23 15:49 Temperature Pulse Rate 100 102 H Respiratory Rate 18 11 L Blood Pressure 147/54 H 131/55 L Pulse Oximetry 97 100 Oxygen Delivery Method Room Air Room Air BMI result Body Mass Index 39.8 Appearance: Obtunded No acute distress. Eyes: Icteric ENT: Pharynx normal. Oral Mucosa moist Neck: Normal inspection. Neck supple. CVS: Normal heart rate and rhythm. Pulses normal. Respiratory: No respiratory distress. Equal air entry bilateral, no wheezing/rales/rhonchi Abdomen: Soft and nontender. Bowel sounds are present, no mass palpable, Skin: Skin warm and dry. Normal skin color. Normal skin turgor. Extremities: No lower extremity edema. No calf tenderness Neuro: Obtunded responding to painful stimuli hepatic flap++ Course Reevaluation(s) Reevaluation #1: This patient was signed out to me by the overnight physician. The patient is a 68-year-old female with a history of cirrhosis and chronic liver failure secondary to hepatitis-C. She has apparently never been a drinker. Patient has had multiple episodes of hepatic encephalopathy in the last few months. She was most recently admitted to this hospital on June 23 when she had an ammonia of 201. She was in the hospital until June 27 when she was discharged to a rehab facility. During the hospitalization she was found to have UTI. She was found to have an ESBL E coli and was treated with Invanz. She was discharged to a rehab facility and continued receiving IV Invanz through a PICC line. The antibiotics finished on July 06. She returned home from the rehab facility 1 week ago. The patient's daughter is with her at the bedside. The patient's daughter says that the patient has had worsening dementia and Parkinson's. The daughter says that the patient has been given lactulose at home. Yesterday the patient seemed mildly confused and the daughter was worried that she might have another imminent hospitalization. This morning the patient was essentially somnolent. An ambulance was called and she was brought to the emergency room. She has an indwelling urinary catheter in place. Her ammonia level is 153. She is somnolent and nonverbal. She is afebrile. Her CBC shows white count of 2.9, hemoglobin of 9.0, platelet count 73. Differential is unremarkable. Her CBC is similar to previous CBCs. INR is 1.9, similar to previous values. Venous blood gas shows a pH of 7.53, pCO2 of 29. I spoke to the patient's daughter and explained that the patient seems to have recurrent hepatic encephalopathy. This has been having with a great deal of frequency lately. The patient's daughter is concerned about the recurrence of this problem in addition to the patient's Parkinson's disease and her dementia. The daughter feels that the patient's quality of life is really extremely poor. I spoke to the covering loan specialist to was somewhat familiar with the patient. Apparently the patient has not been interested in being a potential liver transplant candidate. Therefore does seem likely that the patient's long-term outlook will remain very poor and she will be at ongoing risk for recurrent similar problems. The patient's daughter spoke to her siblings. Ultimately the family has agreed that given the poor quality of life the patient has been experiencing lately they have decided they would like to opt for hospice. I think this is completely appropriate. The patient is quite obtunded and I think any attempts to intervene at this point would likely be associated with a a significant amount of discomfort without any guarantee of long-term benefit. I spoke to the renal case manager. The hospice was consulted. Arrangements will be made for the patient to be admitted to a residential as the family does not feel they can do hospice at home. Case management has made arrangements for the patient to be admitted to the [facility] tomorrow at 10:00. I printed prescriptions for morphine, lorazepam, and haloperidol to be used as needed for comfort. Medications Administered Discontinued Medications Generic Name Dose Route Start Last Admin Trade Name Freq PRN Reason Stop Dose Admin Sodium Chloride 1,000 mls @ 999 mls/hr 07/19/23 06:06 07/19/23 07:20 Ns IV 07/19/23 07:06 Infused .Q1H1M ONE Infusion Lactulose 20 gm 07/19/23 06:20 07/19/23 06:33 Lactulose 20 Gm/30 Ml Solution PO 07/19/23 06:21 Not Given ONCE ONE Lactulose 200 gm 07/19/23 06:20 07/19/23 08:22 Lactulose 320 Gm/480 Ml Solution VT 07/19/23 06:21 Not Given ONCE ONE Medical Decision Making Medical Decision Making [facility] Narrative: Patient with hepatic encephalopathy secondary to hepatitis-C with recent admission discharge from rehab last week according to patient daughter patient was doing well yesterday evening today at 05:00 when she went to wake her up she was not responding patient does have hepatic flap clinically patient is in hepatics encephalopathy. Will start on lactulose pending labs patient signed out Dr. mix patient ammonia level is 152 will give lactulose Differential Diagnosis Differential Diagnoses: The differential diagnosis associated with the presentation includes Lab Data MDM Lab Attestation statement: I reviewed the patient's lab results. 07/19/23 06:14 07/19/23 07:46 Labs: Lab Results 07/19/23 07/19/23 07/19/23 Range/Units 06:07 06:14 06:21 WBC 2.9 L (4.8-10.8) X10*3/uL RBC 2.66 L (4.20-5.50) X10*6/uL Hgb 9.0 L (12.0-16.0) g/dl Hct 27.9 L (37.0-47.0) % MCV 104.9 H (80.0-98.0) fL MCH 33.8 H (27.0-33.0) pg MCHC 32.3 (31.0-35.0) g/dl RDW 16.4 H (11.0-16.0) % Plt Count 73 L D (160-400) X10*3/uL MPV 10.5 (9.4-12.3) fL Immature Gran % (Auto) 0.3 (0.0-0.4) % Neut % (Auto) 57.6 (45-73) % Lymph % (Auto) 22.8 (20-40) % [place] % (Auto) 14.2 H (2-11) % Eos % (Auto) 4.8 H (0-4) % Baso % (Auto) 0.3 (0-2) % Lymph # (Auto) 0.7 L (1.2-4.9) X10*3/uL [place] # (Auto) 0.4 (0.1-1.2) X10*3/uL Eos # (Auto) 0.1 (0.0-0.4) X10*3/uL Baso # (Auto) 0.0 (0.0-0.2) X10*3/uL Abs Immat Gran (auto) 0.01 (0.00-0.03) X10*3/uL Absolute Neuts (auto) 1.7 L (2.0-8.3) x10*3/uL Absolute Nucleated RBC 0.000 (0.0-0.012) X10*3/uL Nucleated RBC % (auto) 0.0 (0.0-0.2) /100WBC PT 23.6 H (11.1-13.3) SEC INR 1.9 H (0.9-1.1) VBG pH (7.32-7.43) VBG pCO2 mmHg VBG pO2 mmHg VBG HCO3 (22-26) mmol/L VBG O2 Saturation % VBG Base Excess mmol/L Sodium (135-145) mmol/L Potassium (3.3-5.1) mmol/L Chloride (96-108) mmol/L Carbon Dioxide (22-29) mmol/L Anion Gap (12-20) BUN (9-16) mg/dL Creatinine (0.5-1.4) mg/dL Estim Creat Clear Calc Estimated GFR POC Glucose 161 H (60-115) mg/dL Random Glucose (60-115) mg/dL Lactic Acid (0.5-2.0) mmol/L Calcium (8.4-10.2) mg/dL Total Bilirubin (0.0-1.0) mg/dL AST (5-31) U/L ALT (0-31) U/L Alkaline Phosphatase (39-117) U/L Ammonia 152 H (13-55) umol/L C-Reactive Protein (< or = 0.50) mg/dL Total Protein (6.5-8.0) g/dL Albumin (3.5-5.0) g/dL Urine Color Urine Appearance Urine pH (5.0-9.0) Ur Specific [place] (1.005-1.025) Urine Protein (Neg-Trace) mg/dL Urine Glucose (UA) (Negative) mg/dL Urine Ketones (Negative) mg/dL Urine Blood (Negative) Urine Nitrite (Negative) Ur Leukocyte Esterase (Negative) COVID-19 ([facility]) (Negative) COVID-19 Clin Com 07/19/23 07/19/23 07/19/23 Range/Units 06:35 06:46 07:46 WBC (4.8-10.8) X10*3/uL RBC (4.20-5.50) X10*6/uL Hgb (12.0-16.0) g/dl Hct (37.0-47.0) % MCV (80.0-98.0) fL MCH (27.0-33.0) pg MCHC (31.0-35.0) g/dl RDW (11.0-16.0) % Plt Count (160-400) X10*3/uL MPV (9.4-12.3) fL Immature Gran % (Auto) (0.0-0.4) % Neut % (Auto) (45-73) % Lymph % (Auto) (20-40) % [place] % (Auto) (2-11) % Eos % (Auto) (0-4) % Baso % (Auto) (0-2) % Lymph # (Auto) (1.2-4.9) X10*3/uL [place] # (Auto) (0.1-1.2) X10*3/uL Eos # (Auto) (0.0-0.4) X10*3/uL Baso # (Auto) (0.0-0.2) X10*3/uL Abs Immat Gran (auto) (0.00-0.03) X10*3/uL Absolute Neuts (auto) (2.0-8.3) x10*3/uL Absolute Nucleated RBC (0.0-0.012) X10*3/uL Nucleated RBC % (auto) (0.0-0.2) /100WBC PT (11.1-13.3) SEC INR (0.9-1.1) VBG pH 7.53 H (7.32-7.43) VBG pCO2 29 mmHg VBG pO2 86 mmHg VBG HCO3 24 (22-26) mmol/L VBG O2 Saturation 99.0 % VBG Base Excess 2.5 mmol/L Sodium 140 (135-145) mmol/L Potassium 4.4 (3.3-5.1) mmol/L Chloride 114 H (96-108) mmol/L Carbon Dioxide 20 L (22-29) mmol/L Anion Gap 10 L (12-20) BUN 10 (9-16) mg/dL Creatinine 0.76 (0.5-1.4) mg/dL Estim Creat Clear Calc 76.6 Estimated GFR > 60 POC Glucose (60-115) mg/dL Random Glucose 160 H (60-115) mg/dL Lactic Acid 1.7 (0.5-2.0) mmol/L Calcium 8.1 L D (8.4-10.2) mg/dL Total Bilirubin 5.4 H (0.0-1.0) mg/dL AST 48 H (5-31) U/L ALT 21 (0-31) U/L Alkaline Phosphatase 152 H (39-117) U/L Ammonia (13-55) umol/L C-Reactive Protein 0.29 (< or = 0.50) mg/dL Total Protein 7.5 (6.5-8.0) g/dL Albumin 1.6 L (3.5-5.0) g/dL Urine Color Yellow Urine Appearance Clear Urine pH >= 9.0 (5.0-9.0) Ur Specific [place] 1.010 (1.005-1.025) Urine Protein Negative (Neg-Trace) mg/dL Urine Glucose (UA) Negative (Negative) mg/dL Urine Ketones Negative (Negative) mg/dL Urine Blood Negative (Negative) Urine Nitrite Negative (Negative) Ur Leukocyte Esterase Negative (Negative) COVID-19 ([facility]) (Negative) COVID-19 Clin Com 07/19/23 Range/Units 10:48 WBC (4.8-10.8) X10*3/uL RBC (4.20-5.50) X10*6/uL Hgb (12.0-16.0) g/dl Hct (37.0-47.0) % MCV (80.0-98.0) fL MCH (27.0-33.0) pg MCHC (31.0-35.0) g/dl RDW (11.0-16.0) % Plt Count (160-400) X10*3/uL MPV (9.4-12.3) fL Immature Gran % (Auto) (0.0-0.4) % Neut % (Auto) (45-73) % Lymph % (Auto) (20-40) % [place] % (Auto) (2-11) % Eos % (Auto) (0-4) % Baso % (Auto) (0-2) % Lymph # (Auto) (1.2-4.9) X10*3/uL [place] # (Auto) (0.1-1.2) X10*3/uL Eos # (Auto) (0.0-0.4) X10*3/uL Baso # (Auto) (0.0-0.2) X10*3/uL Abs Immat Gran (auto) (0.00-0.03) X10*3/uL Absolute Neuts (auto) (2.0-8.3) x10*3/uL Absolute Nucleated RBC (0.0-0.012) X10*3/uL Nucleated RBC % (auto) (0.0-0.2) /100WBC PT (11.1-13.3) SEC INR (0.9-1.1) VBG pH (7.32-7.43) VBG pCO2 mmHg VBG pO2 mmHg VBG HCO3 (22-26) mmol/L VBG O2 Saturation % VBG Base Excess mmol/L Sodium (135-145) mmol/L Potassium (3.3-5.1) mmol/L Chloride (96-108) mmol/L Carbon Dioxide (22-29) mmol/L Anion Gap (12-20) BUN (9-16) mg/dL Creatinine (0.5-1.4) mg/dL Estim Creat Clear Calc Estimated GFR POC Glucose (60-115) mg/dL Random Glucose (60-115) mg/dL Lactic Acid (0.5-2.0) mmol/L Calcium (8.4-10.2) mg/dL Total Bilirubin (0.0-1.0) mg/dL AST (5-31) U/L ALT (0-31) U/L Alkaline Phosphatase (39-117) U/L Ammonia (13-55) umol/L C-Reactive Protein (< or = 0.50) mg/dL Total Protein (6.5-8.0) g/dL Albumin (3.5-5.0) g/dL Urine Color Urine Appearance Urine pH (5.0-9.0) Ur Specific [place] (1.005-1.025) Urine Protein (Neg-Trace) mg/dL Urine Glucose (UA) (Negative) mg/dL Urine Ketones (Negative) mg/dL Urine Blood (Negative) Urine Nitrite (Negative) Ur Leukocyte Esterase (Negative) COVID-19 ([facility]) Negative (Negative) COVID-19 Clin Com See Note Discharge Plan Discharge Clinical Impression: Acute hepatic encephalopathy, Encounter for admission to hospice care Patient Disposition: Still a Patient Additional Instructions: At this point the plan is for admission to [facility] for hospice care. I have printed out prescriptions for morphine, lorazepam, and haloperidol to be used as needed for comfort. Prescriptions: New morphine concentrate 100 mg/5 mL (20 mg/mL) solution 5 mg PO Q6H Qty: 30 0RF Rx Instructions: Partial Fill upon patient request. haloperidol lactate 2 mg/mL concentrate 2 mg PO Q4H PRN (Reason: agitation) Qty: 30 0RF lorazepam 2 mg/mL concentrate 0.5 mg PO Q4H PRN (Reason: agitation) Qty: 30 0RF No Action levothyroxine 75 mcg tablet 75 mcg PO DAILY omeprazole 20 mg capsule,delayed release(DR/EC) 20 mg PO DAILY carbidopa-levodopa 25-100 mg tablet 1 tab PO TID Tradjenta 5 mg tablet 5 mg PO DAILY furosemide 20 mg Tablet 20 mg PO DAILY Qty: 30 0RF Protocol: Hold for SBP< HOLD for SBP < : 90 atorvastatin 20 mg tablet 20 mg PO BEDTIME alendronate 70 mg tablet 70 mg PO FR acarbose 50 mg tablet 50 mg PO TID gabapentin 100 mg Capsule 100 mg PO TID Qty: 90 0RF Xifaxan 550 mg Tablet 550 mg PO BID Qty: 60 0RF lactulose 20 gram/30 mL Solution 30 g PO TID Qty: 2880 0RF spironolactone 25 mg tablet 25 mg PO DAILY Qty: 60 0RF montelukast 10 mg tablet 10 mg PO BEDTIME Referrals: [facility] [Outside]
[2023-07-19 06:26] LABS: Glucose, Whole Blood 161 mg/dL (60-115)
[2023-07-19 06:27] LABS: MANUAL DIFF FLAG NO
[2023-07-19] MEDS: 0.9 % Sodium Chloride 1,000 ML 999 ML IV (06:27)
[2023-07-19 06:30] LABS: Basophils Percent Auto 0.3 % (0-2); Eosinophils Absolute Auto 0.1 X10*3/uL (0.0-0.4); Eosinophils Percent Auto 4.8 % (0-4); Hematocrit 27.9 % (37.0-47.0); Imm Gran Abs Auto 0.01 X10*3/uL (0.00-0.03); Imm Gran Pct Auto 0.3 % (0.0-0.4); Lymphocytes Absolute Auto 0.7 X10*3/uL (1.2-4.9); Lymphocytes Percent Auto 22.8 % (20-40); Mean Corpuscular HGB Conc 32.3 g/dl (31.0-35.0); Mean Corpuscular Hemoglobin 33.8 pg (27.0-33.0); Mean Corpuscular Volume 104.9 fL (80.0-98.0); Mean Platelet Volume 10.5 fL (9.4-12.3); Monocytes Absolute Auto 0.4 X10*3/uL (0.1-1.2); Monocytes Percent Auto 14.2 % (2-11); Neutrophils Absolute Auto 1.7 x10*3/uL (2.0-8.3); Neutrophils Percent Auto 57.6 % (45-73); Red Blood Count 2.66 X10*6/uL (4.20-5.50); Red Cell Distribution Width 16.4 % (11.0-16.0); White Blood Count 2.9 X10*3/uL (4.8-10.8)
[2023-07-19 06:31] LABS: Platelet Count 73 X10*3/uL (160-400)
--- NOTE | 2023-07-19 06:35 | MHC.EDTECH ---
All chemistries need to be redrawn as they are grossly hemolyzed-Carmen CABA & Dr. Bhavik frances
[2023-07-19 06:41] LABS: Venous Blood Gas Refer to POC result
[2023-07-19 06:42] LABS: VBG Base Excess 2.5 mmol/L; VBG HCO3 24 mmol/L (22-26); VBG pCO2 29 mmHg; VBG pH 7.53 (7.32-7.43); VBG pO2 86 mmHg
--- OUTSIDE RECORDS SUMMARY | 2023-07-19 06:49 | XMS_ITS | Continuity of Care Document ---
Author Name Unknown Organization [facility] Address [address], [address], [address] [place] [id number] Care Team Providers Care Order Worker Name Role Phone Everett Henning MD Primary Care Phys ician [place] [facility] [place] [place]): [place] - 05/07/23 [facility] [address] [place] [address], [address] Floor, [address] [place] [id number] Allergies, Adverse Reactions, Alerts Substance Reaction Severity Status ampicillin Active penicillin Active Patient Care team information Care Team Personnel Name: Everett Henning MD Position: [facility] Outreach Member Role: PCP Address: Address: [address] [place] [id number]
[2023-07-19 06:51] LABS: INTERNATIONAL NORM RATIO 1.9 (0.9-1.1); Prothrombin Time 23.6 SEC (11.1-13.3)
[2023-07-19 07:05] LABS: Ammonia 152 umol/L (13-55)
[2023-07-19 07:09] LABS: Appearance Urine Clear; Color Urine Yellow; Glucose Urine UA Negative (Negative); Leukocyte Esterase Urine Negative (Negative); Nitrite Urine Negative (Negative); PH >= 9.0 (5.0-9.0); Urine Blood Negative (Negative); Urine Ketones Negative (Negative); Urine Protein Negative (Neg-Trace)
--- NOTE | 2023-07-19 07:44 | PC.NURSE ---
MD at bedside discussing plan of care with pt's daughter. will likely order NGT to administer lactulose, awaiting orders.
[2023-07-19 08:06] LABS: Lactic Acid 1.7 mmol/L (0.5-2.0)
[2023-07-19 08:10] LABS: Alanine Aminotransferase 21 U/L (0-31); Albumin Level 1.6 g/dL (3.5-5.0); Alkaline Phosphatase 152 U/L (39-117); Anion Gap 10 (12-20); Aspartate Amino Transferase 48 U/L (5-31); Bilirubin Total 5.4 mg/dL (0.0-1.0); Blood Urea Nitrogen 10 mg/dL (9-16); C Reactive Protein 0.29 mg/dL (< or = 0.50); Calcium 8.1 mg/dL (8.4-10.2); Carbon Dioxide 20 mmol/L (22-29); Chloride 114 mmol/L (96-108); Creatinine Clr Calc Pharmacy 76.6; Estimated Glomerular Filt Rate > 60; Glucose Random 160 mg/dL (60-115); Potassium 4.4 mmol/L (3.3-5.1); Sodium 140 mmol/L (135-145); Total Protein 7.5 g/dL (6.5-8.0)
--- NOTE | 2023-07-19 08:23 | PC.NURSE ---
Pt rolled, cleaned and repositioned for comfort. dispo still pending, family considering hospice vs. NGT and lactulose. per MD no lactulose enema at this point.
--- NOTE | 2023-07-19 09:59 | MHC.CM.ED ---
Addendum entered by Tete Thomas 07/19/23 10:49: [facility] social services manager will be at bedside at 2pm to meet with patient and daughter. Original Note: Received case management consult from Dr Xie. Patient came to the ER due to altered mental status. Patient found to have recurrent encephalopathy due to liver disease. Patient's daughter/HCP, Yakelin is at bedside and interested in hospice. Attempted to meet with patient. Patient is currently lethargic. Spoke with patient's daughter, Yakelin. Yakelin is interested in hospice informational meeting. Referral made to [facility]. Yakelin is unsure if she would be able to care for her mother at home. Kaitlinchidienrico agreeable to referral being broadcasted in [facility] for bed availability. Referral broadcasted. Continue to monitor for d/c needs.
[2023-07-19 11:15] LABS: COVID-19 Test Negative (Negative); IDNOW Serial# 9DB6401D
--- NOTE | 2023-07-19 13:31 | MHC.CM.ED ---
Patient will go to [facility] with [facility] when [facility] leveling obtained from [facility]. Do not expect this leveling to be available before tomorrow morning. Family aware and agreeable. Continue to monitor for d/c needs.
--- NOTE | 2023-07-19 16:50 | PC.NURSE ---
Report to jeffrey in overflow, pt transitioned to overflow bed 6
[2023-07-19] MEDS: Morphine Sulfate Oral Sol 10 MG/5 ML SOLUTION 5 MG PO (18:30)
--- NOTE | 2023-07-20 02:23 | PC.NURSE ---
Pt grimacing and making crying noises. VSS. Breath are non labored and regular. Pain meds in MAR are ordered to be given PO. Pt failed swallow eval with water as pt is not swallowing the water and is at risk for aspiration. MD made aware to switch pain meds to be delivered via IV line. Pending new orders.
[2023-07-20] MEDS: Morphine Sulfate 2 MG/ML CARTRIDGE 1 MG IVPUSH ×2 (02:53→08:54)
--- NOTE | 2023-07-20 03:04 | PC.NURSE ---
Pt medicated with new IV order. Pt currently sleeping. No distress noted. Monitoring ongoing.
--- NOTE | 2023-07-20 05:10 | PC.NURSE ---
No diet order in place. Pt unable to be medicated PO. Unsure if pt is able to tolerate foods or liquids PO as pt failed nursing swallow eval. Swallow eval ordered. Diet order pending swallow eval. made aware.
[2023-07-20 06:00] VITALS: BP 122/63; PULSE 99; RESP 18; TEMP 36.3; O2SAT 98
[2023-07-20] MEDS: LORazepam 2 MG/ML VIAL 0.5 MG IVPUSH ×2 (06:01→10:07)
--- NOTE | 2023-07-20 06:34 | MHC.CM.ED ---
Patient remains in ER overflow. Will transfer to [facility] with [facility] via [facility] at 10am. Continue to monitor for d/c needs.
--- NOTE | 2023-07-20 08:59 | PC.NURSE ---
PT RESTING IN BED, REMAINS NONVERBAL, NOT OPENING HER EYES, OCCASIONALLY STIRRING, GROANING. RESP EVEN, NONLABOURED. DAUGHTER AT BEDSIDE, AWARE OF PLAN FOR TRANSPORT THIS AM. PT MEDICATED FOR PAIN.
== END 2023-07-20 10:26 | disposition skilled nursing facility (03) ==
PROVIDERS: Internal Medicine; Emergency Provider Emergency Medicine; PCP Internal Medicine
DX: K76.82 Hepatic encephalopathy (principal); R41.82 Altered mental status, unspecified; R50.9 Fever, unspecified; G20.A1 Parkinson's disease without dyskinesia, without mention of fluctuations; F02.C0 Dementia in other diseases classified elsewhere, severe, without behavioral disturbance, psychotic disturbance, mood disturbance, and anxiety; Z79.899 Other long term (current) drug therapy; Z11.52 Encounter for screening for COVID-19; Z20.822 Contact with and (suspected) exposure to COVID-19
CPT/HCPCS: 36415; 70450; 71045; 80053; 81003; 82140; 82803; 82947; 83605; 85025; 85610; 86140; 87040; 87635; 93005; 96361; 96374; 96375; 99284; 99285; J2060; J2270

== ENCOUNTER → 2023-07-19 06:09 | Outpatient (BNV) | payer MEDICARE, MEDICAID, SELFPAY | PROVIDERS: Emergency Provider Emergency Medicine; PCP Internal Medicine; Visit Provider Internal Medicine | DX: R06.09 Other forms of dyspnea (principal) | CPT/HCPCS: 93010 ==